=== PATIENT | male | born 1955 | race Caucasian/White ===

== ENCOUNTER 2017-10-31 04:31 | Observation (INO) | payer OTHER ==
[2017-10-31] MEDS ORDERED: MORPHINE SULFATE 4 MG/ML SYRINGE IV STA (04:57)
[2017-10-31 05:08] LABS: Basophils # (A) 0.1 k/uL (0-0.2); Basophils % (A) 1 %; Eosinophils # (A) 0.2 k/uL (0-0.7); Eosinophils % (A) 2 %; HCT 42.8 % (39.0-53.0); HGB 14.6 gm/dL (13.0-17.5); Lymphocytes # (A) 1.5 k/uL (1.0-4.8); Lymphocytes % (A) 16 %; MCH 34.8 pg (25.0-35.0); MCHC 34.1 g/dL (31.0-37.0); MCV 101.9 fL (80.0-100.0); Macrocytosis Slight; Mean Platelet Volume 6.7; Monocytes # (A) 0.6 k/uL (0-1.0); Monocytes % (A) 6 %; Neutrophils # (A) 6.8 k/uL (1.3-7.7); Neutrophils % (A) 73 %; Platelet Count 250 k/uL (150-450); RDW 12.8 % (11.5-15.5); WBC 9.2 k/uL (3.8-10.6)
[2017-10-31 05:17] LABS: ALT 26 U/L (21-72); AST 45 U/L (17-59); Albumin 4.4 g/dL (3.5-5.0); Alkaline Phosphatase 77 U/L (38-126); Amylase 71 U/L (30-110); Anion Gap 11 mmol/L; Blood Urea Nitrogen 4 mg/dL (9-20); Calcium 9.1 mg/dL (8.4-10.2); Carbon Dioxide 30 mmol/L (22-30); Chloride 89 mmol/L (98-107); Glucose 104 mg/dL (74-99); Lipase 179 U/L (23-300); Sodium 130 mmol/L (137-145); Total Bilirubin 1.3 mg/dL (0.2-1.3); Total Protein 7.4 g/dL (6.3-8.2)
[2017-10-31 05:21] LABS: Potassium 4.2 mmol/L (3.5-5.1)
--- NOTE | 2017-10-31 05:46 | CT ---
EXAM: CT Abdomen and Pelvis Without Intravenous Contrast CLINICAL HISTORY: abdominal pain TECHNIQUE: Axial computed tomography images of the abdomen and pelvis without intravenous contrast. CTDI is 10.60 mGy and DLP is 475.40 mGy-cm. This CT exam was performed using one or more of the following dose reduction techniques: automated exposure control, adjustment of the mA and/or kV according to patient size, and/or use of iterative reconstruction technique. COMPARISON: No relevant prior studies available. FINDINGS: Lung bases: Unremarkable. No mass. No consolidation. ABDOMEN: Liver: Unremarkable. Gallbladder and bile ducts: Unremarkable. No calcified stones. No ductal dilation. Pancreas: Unremarkable. No ductal dilation. Spleen: Unremarkable. No splenomegaly. Adrenals: Probable 1 cm right adrenal adenoma. Kidneys and ureters: Unremarkable. No obstructing stones. No hydronephrosis. Stomach and bowel: Limited evaluation of the bowel without the use of oral or IV contrast. Within this limitation, dilated air-fluid filled small bowel loops are seen, measuring up to 3.7 cm in diameter. Suspected wall thickening of proximal small bowel loops. A definitive transition point is not seen. Constellation of findings are suggestive of infectious versus inflammatory enteritis resulting in ileus and/or a partial small bowel obstruction. Underdistention versus mild wall thickening of the descending and sigmoid colon, which may represent mild infectious versus inflammatory colitis. Lipomatosis of the ascending colon, which is a nonspecific finding, although can be seen in chronic IBD. PELVIS: Appendix: No findings to suggest acute appendicitis. Bladder: Unremarkable. No stones. Reproductive: Prostatomegaly, measuring up to 4.8 cm in transverse dimension. ABDOMEN and PELVIS: Intraperitoneal space: Unremarkable. No free air. No significant fluid collection. Bones/joints: Mild bilateral sacroiliitis. No acute fracture. No dislocation. Soft tissues: Unremarkable. Vasculature: Mild/moderate vascular calcifications involving the intra- abdominal aorta and its branches. No abdominal aortic aneurysm. Lymph nodes: No significant lymphadenopathy, although evaluation is limited without the use of IV contrast material. IMPRESSION: 1. Limited evaluation of the bowel without the use of oral or IV contrast. Within this limitation, dilated air-fluid filled small bowel loops, measuring up to 3.7 cm in diameter. Suspected wall thickening of proximal small bowel loops. A definitive transition point is not seen. Constellation of findings are suggestive of infectious versus inflammatory enteritis resulting in ileus and/or a partial small bowel obstruction. Repeat CT of the abdomen/pelvis with oral and IV contrast is recommended for further evaluation. 2. Underdistention versus mild wall thickening of the descending and sigmoid colon, which may represent mild infectious versus inflammatory colitis. [employer] 10/31/17 05:32 Call Doctor Regarding Other, called Dr. Rick on 10/31 05: 32 (-04:00)
[2017-10-31 05:49] LABS: Appearance,Urine Clear (Clear); Bilirubin,Urine Negative (Negative); Blood,Urine Negative (Negative); Color,Urine Light Yellow; Glucose,Urine (UA) Negative (Negative); Ketones,Urine Negative (Negative); Leukocyte Esterase,Urine Negative (Negative); Nitrite,Urine Negative (Negative); PH, Urine 8.5 (5.0-8.0); Protein,Urine Negative (Negative); Specific Gravity,Urine 1.004 (1.001-1.035); Urobilinogen,Urine <2.0 mg/dL (<2.0)
[2017-10-31] MEDS ORDERED: ONDANSETRON 4 MG/2 ML VIAL IVP STA (06:45)
[2017-10-31] MEDS ORDERED: ONDANSETRON 4 MG/2 ML VIAL IVP PRN (06:50)
[2017-10-31] MEDS ORDERED: NALOXONE 0.4 MG/ML 1 ML VIAL IV PRN (06:50)
--- NOTE | 2017-10-31 06:50 | ED ---
Abdominal Pain HPI - General Chief Complaint: Abdominal Pain Stated Complaint: Abd pain Time Seen by Provider: 10/31/17 04:40 Source: EMS Mode of arrival: EMS Limitations: no limitations - History of Present Illness Initial Comments: This patient is 62-year-old man who noticed the onset of left-sided abdominal pain approximately 22 hours ago. He states that about 7 AM while he was having his morning coffee he started having pain that initially was mild and then became a little bit worse over the course the day. He states that it is not easy for him to characterize it as a cramping or bloating feeling. He has not noted relieving factors, and states that it is a bit worse if he presses on the abdomen. He also had nausea and vomited once. He denies any change in bowel movements or urination. No testicular symptoms. MD Complaint: abdominal pain Onset/Timin -: hour(s) Location: LUQ, LLQ Radiation: none Migration to: no migration Severity: moderate Quality: cramping, fullness Consistency: constant Improves With: nothing Worsens With: nothing Associated Symptoms: nausea, vomiting - Related Data Previous Rx's Medication Instructions Recorded Budesonide-Formot 160-4.5 Mcg 2 puff INHALATION RT-BID #1 puff 05/22/14 [Symbicort 160-4.5 Mcg Inhaler] Folic Acid 1 mg PO DAILY@1200 #30 tab 05/22/14 Ipratropium-Albuterol Nebulize 3 ml IH QID #120 ampul.neb 05/22/14 [Duoneb 0.5 mg-3 mg/3 ml Soln] Levofloxacin [Levaquin] 500 mg PO DAILY #7 tab 05/22/14 Thiamine [Vitamin B-1] 100 mg PO DAILY@1200 #30 tab 05/22/14 predniSONE 10 mg PO DIRECTED #40 tab 05/22/14 Allergies Allergy/AdvReac Type Severity Reaction Status Date / Time aspirin Allergy Rash/Hives Verified 10/31/17 04:36 Review of Systems ROS Statement: Those systems with pertinent positive or pertinent negative responses have been documented in the HPI. ROS Other: All systems not noted in ROS Statement are negative. Constitutional: Denies: fever, chills, weakness Respiratory: Denies: cough, dyspnea Cardiovascular: Denies: chest pain, palpitations, edema, syncope Gastrointestinal: Reports: abdominal pain, nausea, vomiting. Denies: diarrhea, constipation, melena, hematochezia Genitourinary: Denies: dysuria, hematuria, testicular pain, testicular mass Musculoskeletal: Denies: back pain Skin: Denies: rash Neurological: Denies: headache, weakness, numbness Past Medical History Past Medical History: No Reported History History of Any Multi-Drug Resistant Organisms: None Reported Past Surgical History: Joint Replacement Additional Past Surgical History / Comment(s): LT SHOULDER in 2009 Past Psychological History: No Psychological Hx Reported Smoking Status: Former smoker Past Alcohol Use History: Occasional Past Drug Use History: None Reported - Past Family History Daughter(s) Family Medical History: No Reported History General Exam Limitations: no limitations General appearance: alert, in no apparent distress Head exam: Present: atraumatic, normocephalic Eye exam: Present: normal appearance. Absent: scleral icterus, conjunctival injection ENT exam: Present: normal oropharynx Respiratory exam: Present: normal lung sounds bilaterally. Absent: respiratory distress, wheezes, rales, rhonchi, stridor Cardiovascular Exam: Present: regular rate, normal rhythm, normal heart sounds. Absent: systolic murmur, diastolic murmur, rubs, gallop GI/Abdominal exam: Present: soft, tenderness (Mild left-sided tenderness without rebound or guarding), normal bowel sounds. Absent: distended, guarding , rebound, rigid, mass, pulsatile mass, hernia Extremities exam: Present: normal inspection, normal capillary refill. Absent: pedal edema, calf tenderness Back exam: Present: normal inspection. Absent: CVA tenderness (R), CVA tenderness (L) Neurological exam: Present: alert Skin exam: Present: warm, dry, intact, normal color. Absent: rash Course Vital Signs 10/31/17 04:35 Temperature 98.3 F Pulse Rate 92 Respiratory 18 Rate Blood Pressure 156/109 O2 Sat by Pulse 97 Oximetry Medical Decision Making - Medical Decision Making Patient is a 62-year-old man with nearly 24 hours of left-sided abdominal pain. He was having some moderate tenderness and therefore computed tomography scan obtained which appears show an ileus. The patient not having any improvement with symptomatic treatment. - Lab Data Result diagrams: 10/31/17 04:45 10/31/17 04:45 Lab Results 10/31/17 10/31/17 10/31/17 Range/Units 04:45 04:45 05:39 WBC 9.2 (3.8-10.6) k/uL RBC 4.20 L (4.30-5.90) m/uL Hgb 14.6 (13.0-17.5) gm/dL Hct 42.8 (39.0-53.0) % MCV 101.9 H (80.0-100.0) fL MCH 34.8 (25.0-35.0) pg MCHC 34.1 (31.0-37.0) g/dL RDW 12.8 (11.5-15.5) % Plt Count 250 (150-450) k/uL Neutrophils % 73 % Lymphocytes % 16 % Monocytes % 6 % Eosinophils % 2 % Basophils % 1 % Neutrophils # 6.8 (1.3-7.7) k/uL Lymphocytes # 1.5 (1.0-4.8) k/uL Monocytes # 0.6 (0-1.0) k/uL Eosinophils # 0.2 (0-0.7) k/uL Basophils # 0.1 (0-0.2) k/uL Macrocytosis Slight Sodium 130 L (137-145) mmol/L Potassium 4.2 (3.5-5.1) mmol/L Chloride 89 L (98-107) mmol/L Carbon Dioxide 30 (22-30) mmol/L Anion Gap 11 mmol/L BUN 4 L (9-20) mg/dL Creatinine 0.40 L (0.66-1.25) mg/dL Est GFR (CKD-EPI)AfAm >90 (>60 ml/min/1.73 sqM) Est GFR (CKD-EPI)NonAf >90 (>60 ml/min/1.73 sqM) Glucose 104 H (74-99) mg/dL Calcium 9.1 (8.4-10.2) mg/dL Total Bilirubin 1.3 (0.2-1.3) mg/dL AST 45 (17-59) U/L ALT 26 (21-72) U/L Alkaline Phosphatase 77 (38-126) U/L Total Protein 7.4 (6.3-8.2) g/dL Albumin 4.4 (3.5-5.0) g/dL Amylase 71 (30-110) U/L Lipase 179 (23-300) U/L Urine Color Light Yellow Urine Appearance Clear (Clear) Urine pH 8.5 H (5.0-8.0) Ur Specific Clemons 1.004 (1.001-1.035) Urine Protein Negative (Negative) Urine Glucose (UA) Negative (Negative) Urine Ketones Negative (Negative) Urine Blood Negative (Negative) Urine Nitrite Negative (Negative) Urine Bilirubin Negative (Negative) Urine Urobilinogen <2.0 (<2.0) mg/dL Ur Leukocyte Esterase Negative (Negative) Disposition Clinical Impression: Abdominal pain, Ileus Disposition: ADMITTED IP TO THIS [facility] Condition: Fair Referrals: Bia Anderson MD [Primary Care Provider] - 1-2 days
[2017-10-31] MEDS: SODIUM CHLORIDE 0.9% 1,000 ML IV SCH ×2 (06:54→16:08)
[2017-10-31] MEDS ORDERED: FAMOTIDINE 20 MG TAB PO SCH (09:00)
--- NOTE | 2017-10-31 14:03 | P.DS ---
Providers Date of admission: 10/31/17 06:57 Attending physician: Kirill Cooley Primary care physician: Bia Anderson [facility] Course: As mentioned in HPI Patient Condition at Discharge: Fair Plan - Discharge Summary Discharge Rx Participant: Yes New Discharge Prescriptions: New Ranitidine HCl [Zantac] 150 mg PO BID #30 tab No Action Vit C/E/Zn/Coppr/Lutein/Zeaxan [Preservision Areds 2 Softgel] 1 cap PO BID Latanoprost [Xalatan 0.005%] 1 drop LEFT EYE HS Discharge Medication List Latanoprost [Xalatan 0.005%] 1 drop LEFT EYE HS 10/31/17 [History] Ranitidine HCl [Zantac] 150 mg PO BID #30 tab 10/31/17 [Rx] Vit C/E/Zn/Coppr/Lutein/Zeaxan [Preservision Areds 2 Softgel] 1 cap PO BID 10/31 [History] Follow up Appointment(s)/Referral(s): Radha Lau FNJc [REFERRING] - 11/07/17 3:15 pm Bia Anderson MD [Primary Care Provider] - 1 Week Patient Instructions/Handouts: Ileus (DC) Activity/Diet/Wound Care/Special Instructions: Regular diet Discharge Disposition: HOME SELF-CARE
--- NOTE | 2017-10-31 14:03 | P.HPIM ---
History of Present Illness 62-year-old gentleman came in with the complaints of abdominal pain mostly diffuse sharp in nature 7/10 in severity nonradiating CAT scan of the abdomen was done which showed a gastritis patient has multiple episodes of vomiting and nausea denied any bowel or bladder incontinence his pain is cramping as well. Patient's symptoms completely resolved at this point of time patient probably has viral gastroenteritis patient has improved symptoms patient is bit dehydrated from my gastroenteritis nausea vomiting. Patient received IV fluids clinically doing well and advance her diet to soft diet is clinically doing well will be discharged today. Patient did have a bowel movement today. Review of Systems REVIEW OF SYSTEMS: CONSTITUTIONAL: No fever, no malaise, no fatigue. HEENT: No recent visual problems or hearing problems. Denied any sore throat. CARDIOVASCULAR: No chest pain, orthopnea, PND, no palpitations, no syncope. PULMONARY: No shortness of breath, no cough, no hemoptysis. GASTROINTESTINAL: As mentioned in HPI NEUROLOGICAL: No headaches, no weakness, no numbness. HEMATOLOGICAL: Denies any bleeding or petechiae. GENITOURINARY: Denies any burning micturition, frequency, or urgency. MUSCULOSKELETAL/RHEUMATOLOGICAL: Denies any joint pain, swelling, or any muscle pain. ENDOCRINE: Denies any polyuria or polydipsia. The rest of the 14-point review of systems is negative. Past Medical History Past Medical History: No Reported History History of Any Multi-Drug Resistant Organisms: None Reported Past Surgical History: Joint Replacement Additional Past Surgical History / Comment(s): LT SHOULDER sx in 2009 Past Psychological History: No Psychological Hx Reported Smoking Status: Former smoker Past Alcohol Use History: Occasional Past Drug Use History: None Reported - Past Family History Daughter(s) Family Medical History: No Reported History Medications and Allergies Home Medications Medication Instructions Recorded Confirmed Type Latanoprost [Xalatan 0.005%] 1 drop LEFT EYE HS 10/31/17 10/31/17 History Ranitidine HCl [Zantac] 150 mg PO BID #30 tab 10/31/17 Rx Vit C/E/Zn/Coppr/Lutein/Zeaxan 1 cap PO BID 10/31/17 10/31/17 History [Preservision Areds 2 Softgel] Allergies Allergy/AdvReac Type Severity Reaction Status Date / Time aspirin Allergy Rash/Hives Verified 10/31/17 07:32 Physical Exam Vitals: Vital Signs Temp Pulse Pulse Resp BP BP Pulse Ox 10/31/17 09:51 98.2 F 73 18 118/72 98 10/31/17 08:10 98.0 F 68 18 143/70 98 10/31/17 06:55 67 16 126/66 97 10/31/17 04:35 98.3 F 92 18 156/109 97 Intake and Output 10/30/17 10/31/17 10/31/17 22:59 06:59 14:59 Other: Weight 83.915 kg PHYSICAL EXAMINATION: GENERAL: The patient is alert and oriented x3, not in any acute distress. Well developed, well nourished. HEENT: Pupils are round and equally reacting to light. EOMI. No scleral icterus. No conjunctival pallor. Normocephalic, atraumatic. No pharyngeal erythema. No thyromegaly. CARDIOVASCULAR: S1 and S2 present. No murmurs, rubs, or gallops. PULMONARY: Chest is clear to auscultation, no wheezing or crackles. ABDOMEN: Soft, nontender, nondistended, normoactive bowel sounds. No palpable organomegaly. MUSCULOSKELETAL: No joint swelling or deformity. EXTREMITIES: No cyanosis, clubbing, or pedal edema. NEUROLOGICAL: Gross neurological examination did not reveal any focal deficits. SKIN: No rashes. Results CBC & Chem 7: 10/31/17 04:45 10/31/17 04:45 Labs: Abnormal Lab Results - Last 24 Hours (Table) 10/31/17 10/31/17 10/31/17 Range/Units 04:45 04:45 05:39 RBC 4.20 L (4.30-5.90) m/uL MCV 101.9 H (80.0-100.0) fL Sodium 130 L (137-145) mmol/L Chloride 89 L (98-107) mmol/L BUN 4 L (9-20) mg/dL Creatinine 0.40 L (0.66-1.25) mg/dL Glucose 104 H (74-99) mg/dL Urine pH 8.5 H (5.0-8.0) Thrombosis Risk Factor Assmnt - Choose All That Apply Any of the Below Risk Factors Present?: No Assessment and Plan Plan: -Vital gastroenteritis: Symptoms resolved we'll obtain repeat chest x-ray before discharge, patient will be started on soft diet if he is able to tolerated patient will be discharged. -Former smoker -Hyponatremia hyperemic hyponatremia probably improved now with IV fluids.
--- NOTE | 2017-10-31 14:36 | XR ---
EXAMINATION TYPE: XR abdomen 2V DATE OF EXAM: 10/31/2017 COMPARISON: None HISTORY: Pain TECHNIQUE: One view abdominal series FINDINGS: The osseous structures are intact. The bowel gas pattern is nonspecific. Hypertrophic and degenerati ve change of the spine. Arthropathy of the hips. Vascular calcifications noted. IMPRESSION: 1. Nonspecific bowel gas pattern. There are dilated small bowel loops. Correlate for ileus, enteritis or partial obstruction.
[2017-10-31 16:14] VITALS: BP 104/72; PULSE 75; RESP 17; TEMP 99.8
== END 2017-10-31 16:21 | disposition home or self-care (01) ==
LOC: EC 04:31 → INTOOBSV 06:57 → 4MS4W 06:57 → UNDODISIN 16:21
PROVIDERS: ADMIT Hospitalist; ATTEND Hospitalist
DX: K52.9 Noninfective gastroenteritis and colitis, unspecified (principal); K29.70 Gastritis, unspecified, without bleeding; E87.1 Hypo-osmolality and hyponatremia; E86.0 Dehydration; K56.7 Ileus, unspecified; Z79.51 Long term (current) use of inhaled steroids; Z79.52 Long term (current) use of systemic steroids; Z79.899 Other long term (current) drug therapy; Z88.6 Allergy status to analgesic agent; Z87.891 Personal history of nicotine dependence; Z96.612 Presence of left artificial shoulder joint
CPT/HCPCS: 96361; 96374; 96375; 99285; 36415; 80053; 82150; 83690; 85025; 81003; 74019; 74176; G0378; J2270; J2405

== ENCOUNTER → 2017-11-29 | Outpatient (CLI) | payer OTHER ==
[2017-11-29 13:05] LABS: Anion Gap 8 mmol/L; Blood Urea Nitrogen 7 mg/dL (9-20); Calcium 8.9 mg/dL (8.4-10.2); Carbon Dioxide 29 mmol/L (22-30); Chloride 95 mmol/L (98-107); Glucose 105 mg/dL (74-99); Potassium 4.4 mmol/L (3.5-5.1); Sodium 132 mmol/L (137-145)
== END | disposition home or self-care (01) ==
LOC: LABWHC1 11:40
PROVIDERS: ATTEND Internal Medicine
DX: D64.9 Anemia, unspecified (principal)
CPT/HCPCS: 36415; 80048

== ENCOUNTER 2019-04-18 18:26 | Inpatient (IN) | payer MEDICARE, OTHER ==
[2019-04-18] MEDS ORDERED: IPRATROPIUM-ALBUTEROL 3 ML NEB INHALATION STA (18:46)
[2019-04-18] MEDS ORDERED: ALBUTEROL NEBULIZED 2.5 MG/3 ML INHALATION STA (18:46)
[2019-04-18] MEDS ORDERED: methylPREDNISolone SOD SUCCI 125 MG/2 ML VIAL IV STA (18:57)
[2019-04-18 19:09] LABS: Basophils % (A) 0 %; Eosinophils # (A) 0.1 k/uL (0-0.7); Eosinophils % (A) 1 %; HCT 32.6 % (39.0-53.0); HGB 11.5 gm/dL (13.0-17.5); Lymphocytes # (A) 0.7 k/uL (1.0-4.8); Lymphocytes % (A) 6 %; MCH 34.1 pg (25.0-35.0); MCHC 35.4 g/dL (31.0-37.0); MCV 96.3 fL (80.0-100.0); Mean Platelet Volume 8.1; Monocytes # (A) 0.5 k/uL (0-1.0); Monocytes % (A) 4 %; Neutrophils # (A) 10.4 k/uL (1.3-7.7); Neutrophils % (A) 87 %; Platelet Count 168 k/uL (150-450); RBC 3.39 m/uL (4.30-5.90); RDW 12.4 % (11.5-15.5)
--- NOTE | 2019-04-18 19:17 | ED ---
General Adult HPI - General Chief complaint: Shortness of Breath Stated complaint: breathing issues/wheezing/vomiting Time Seen by Provider: 04/18/19 18:35 Source: patient, RN notes reviewed, old records reviewed Mode of arrival: ambulatory Limitations: no limitations - History of Present Illness Initial comments: 64-year-old male presents for 3 days of cough, mild dyspnea, URI symptoms. He's had subjective fever and chills. He's been sick for 3 days. He has significant tobacco use however he did quit about 6 months ago. No diagnosis of COPD or asthma. No history of heart disease or heart failure. Denies lower extremity pain or swelling. Denies nausea vomiting or diarrhea. He does complain of nasal congestion and productive cough. No central chest pain. - Related Data Home Medications Medication Instructions Recorded Confirmed Latanoprost [Xalatan 0.005%] 1 drop LEFT EYE HS 10/31/17 11/01/17 Vit C/E/Zn/Coppr/Lutein/Zeaxan 1 cap PO BID 10/31/17 11/01/17 [Preservision Areds 2 Softgel] Previous Rx's Medication Instructions Recorded Multivitamin [Men's Multi-Vitamin] 1 each PO DAILY #30 tablet 11/01/17 Thiamine [Vitamin B-1] 100 mg PO DAILY #14 tablet 11/01/17 Allergies Allergy/AdvReac Type Severity Reaction Status Date / Time aspirin Allergy Rash/Hives Verified 04/18/19 18:29 Review of Systems ROS Statement: Those systems with pertinent positive or pertinent negative responses have been documented in the HPI. ROS Other: All systems not noted in ROS Statement are negative. Past Medical History Past Medical History: No Reported History Additional Past Medical History / Comment(s): glaucoma History of Any Multi-Drug Resistant Organisms: None Reported Past Surgical History: Joint Replacement Additional Past Surgical History / Comment(s): LT SHOULDER sx in 2009 Past Psychological History: No Psychological Hx Reported Smoking Status: Former smoker Past Alcohol Use History: Occasional Past Drug Use History: None Reported - Past Family History Daughter(s) Family Medical History: No Reported History General Exam Limitations: no limitations General appearance: alert, in no apparent distress Head exam: Present: atraumatic, normocephalic Eye exam: Present: normal appearance, PERRL ENT exam: Absent: normal oropharynx (Mild pharyngeal erythema, nasal congestion) Neck exam: Present: normal inspection. Absent: tenderness, meningismus Respiratory exam: Present: wheezes, decreased breath sounds. Absent: respiratory distress Cardiovascular Exam: Present: tachycardia, irregular rhythm GI/Abdominal exam: Present: soft. Absent: distended, tenderness, guarding Extremities exam: Present: normal inspection, normal capillary refill. Absent: pedal edema Neurological exam: Present: alert, oriented X3, CN II-XII intact. Absent: motor sensory deficit Psychiatric exam: Present: normal affect, normal mood Skin exam: Present: warm, dry, intact. Absent: cyanosis, diaphoretic Course Vital Signs 04/18/19 04/18/19 04/18/19 18:29 18:52 19:04 Temperature 100.7 F H Pulse Rate 73 72 81 Respiratory 18 18 18 Rate Blood Pressure 157/69 O2 Sat by Pulse 96 Oximetry 04/18/19 19:35 Temperature 101.2 F H Pulse Rate 146 H Respiratory 18 Rate Blood Pressure 111/67 O2 Sat by Pulse 98 Oximetry EKG Findings - EKG Comments: EKG Findings:: EKG: Atrial fibrillation with RVR, rate of 137, QRS duration 84, QTC 422, no ST segment elevation Medical Decision Making - Medical Decision Making 64-year-old male with 3 days of cough and dyspnea, former smoker. Has wheezing bilaterally. He appears ill, cachectic. He is in A. fib with rapid ventricular response, rate around 150. He has mild leukocytosis, down trending hemoglobin 11. He has significant lab abnormalities, hyponatremia, hypokalemia. Chest x- ray showing focal pneumonia on the left lung base. He is initiated on antibiotics covering community-acquired pneumonia, he started on Cardizem for his new-onset A. fib. He is given a left lateral placement for hyponatremia, hypokalemia. Case is discussed with Poonam busch for yeast or [place] hospitalist. He will be admitted with both cardiology and pulmonology on consult. - Lab Data Result diagrams: 04/18/19 18:55 04/18/19 18:55 Lab Results 04/18/19 04/18/19 04/18/19 Range/Units 18:55 18:55 18:55 WBC 12.0 H (3.8-10.6) k/uL RBC 3.39 L (4.30-5.90) m/uL Hgb 11.5 L (13.0-17.5) gm/dL Hct 32.6 L (39.0-53.0) % MCV 96.3 (80.0-100.0) fL MCH 34.1 (25.0-35.0) pg MCHC 35.4 (31.0-37.0) g/dL RDW 12.4 (11.5-15.5) % Plt Count 168 (150-450) k/uL Neutrophils % 87 % Lymphocytes % 6 % Monocytes % 4 % Eosinophils % 1 % Basophils % 0 % Neutrophils # 10.4 H (1.3-7.7) k/uL Lymphocytes # 0.7 L (1.0-4.8) k/uL Monocytes # 0.5 (0-1.0) k/uL Eosinophils # 0.1 (0-0.7) k/uL Basophils # 0.0 (0-0.2) k/uL PT (9.0-12.0) sec INR (<1.2) APTT (22.0-30.0) sec Sodium 120 L (137-145) mmol/L Potassium 3.1 L (3.5-5.1) mmol/L Chloride 85 L (98-107) mmol/L Carbon Dioxide 24 (22-30) mmol/L Anion Gap 11 mmol/L BUN 28 H (9-20) mg/dL Creatinine 0.49 L (0.66-1.25) mg/dL Est GFR (CKD-EPI)AfAm >90 (>60 ml/min/1.73 sqM) Est GFR (CKD-EPI)NonAf >90 (>60 ml/min/1.73 sqM) Glucose 136 H (74-99) mg/dL Plasma Lactic Acid Hugo 2.2 H* (0.7-2.0) mmol/L Calcium 7.6 L (8.4-10.2) mg/dL Magnesium 1.8 (1.6-2.3) mg/dL Total Bilirubin 0.4 (0.2-1.3) mg/dL AST 38 (17-59) U/L ALT 15 (4-49) U/L Alkaline Phosphatase 65 (38-126) U/L Troponin I (0.000-0.034) ng/mL NT-Pro-B Natriuret Pep pg/mL Total Protein 5.3 L (6.3-8.2) g/dL Albumin 2.9 L (3.5-5.0) g/dL 04/18/19 04/18/19 04/18/19 Range/Units 18:55 18:55 18:55 WBC (3.8-10.6) k/uL RBC (4.30-5.90) m/uL Hgb (13.0-17.5) gm/dL Hct (39.0-53.0) % MCV (80.0-100.0) fL MCH (25.0-35.0) pg MCHC (31.0-37.0) g/dL RDW (11.5-15.5) % Plt Count (150-450) k/uL Neutrophils % % Lymphocytes % % Monocytes % % Eosinophils % % Basophils % % Neutrophils # (1.3-7.7) k/uL Lymphocytes # (1.0-4.8) k/uL Monocytes # (0-1.0) k/uL Eosinophils # (0-0.7) k/uL Basophils # (0-0.2) k/uL PT 10.6 (9.0-12.0) sec INR 1.0 (<1.2) APTT 31.7 H (22.0-30.0) sec Sodium (137-145) mmol/L Potassium (3.5-5.1) mmol/L Chloride (98-107) mmol/L Carbon Dioxide (22-30) mmol/L Anion Gap mmol/L BUN (9-20) mg/dL Creatinine (0.66-1.25) mg/dL Est GFR (CKD-EPI)AfAm (>60 ml/min/1.73 sqM) Est GFR (CKD-EPI)NonAf (>60 ml/min/1.73 sqM) Glucose (74-99) mg/dL Plasma Lactic Acid Hugo (0.7-2.0) mmol/L Calcium (8.4-10.2) mg/dL Magnesium (1.6-2.3) mg/dL Total Bilirubin (0.2-1.3) mg/dL AST (17-59) U/L ALT (4-49) U/L Alkaline Phosphatase (38-126) U/L Troponin I 0.026 (0.000-0.034) ng/mL NT-Pro-B Natriuret Pep 1660 pg/mL Total Protein (6.3-8.2) g/dL Albumin (3.5-5.0) g/dL Critical Care Time Critical Care Time: Yes Total Critical Care Time: 35 Disposition Clinical Impression: Acute exacerbation of chronic obstructive pulmonary disease, Community acquired pneumonia, Atrial fibrillation with RVR, Hyponatremia Disposition: ADMITTED IP TO THIS [facility] Condition: Stable Is patient prescribed a controlled substance at d/c from ED?: No Referrals: Radha Lau FNJc [REFERRING] - 1-2 days Decision to Admit Reason: Admit from EC Decision Date: 04/18/19 Decision Time: 20:19
[2019-04-18 19:18] LABS: ALT 15 U/L (4-49); AST 38 U/L (17-59); African American GFR (CKD) >90 (>60 ml/min/1.73 sqM); Albumin 2.9 g/dL (3.5-5.0); Alkaline Phosphatase 65 U/L (38-126); Anion Gap 11 mmol/L; Blood Urea Nitrogen 28 mg/dL (9-20); Calcium 7.6 mg/dL (8.4-10.2); Carbon Dioxide 24 mmol/L (22-30); Chloride 85 mmol/L (98-107); Glucose 136 mg/dL (74-99); Magnesium 1.8 mg/dL (1.6-2.3); Non-African American GFR(CKD) >90 (>60 ml/min/1.73 sqM); Potassium 3.1 mmol/L (3.5-5.1); Sodium 120 mmol/L (137-145); Total Bilirubin 0.4 mg/dL (0.2-1.3); Total Protein 5.3 g/dL (6.3-8.2)
[2019-04-18] MEDS ORDERED: DILTIAZEM DRIP BOLUS FROM BAG 1 MG SOLN IV ONE (19:18)
[2019-04-18 19:22] LABS: Partial Thromboplastin Time 31.7 sec (22.0-30.0); Prothrombin Time 10.6 sec (9.0-12.0)
[2019-04-18] MEDS ORDERED: DILTIAZEM 125 MG in SODIUM CHLORIDE 0.9% 100 ML IV SCH (19:30)
[2019-04-18] MEDS ORDERED: SODIUM CHLORIDE 0.9% 500 ML 500 ML IV STA (19:38)
[2019-04-18] MEDS ORDERED: POTASSIUM CHLORIDE ER 20 MEQ TAB.ER PO STA (19:41)
[2019-04-18] MEDS ORDERED: AZITHROMYCIN 500 MG in SODIUM CHLORIDE 0.9% 250 ML IVPB STA (19:43)
[2019-04-18] MEDS ORDERED: cefTRIAXone IN SWFI 1,000 MG/10 ML SYRINGE IVP STA (19:43)
[2019-04-18] MEDS ORDERED: ACETAMINOPHEN TAB 500 MG TAB PO STA (19:43)
--- NOTE | 2019-04-18 19:57 | XR ---
EXAMINATION TYPE: XR chest 2V DATE OF EXAM: 04/18/2019 COMPARISON: NONE HISTORY: Short of breath TECHNIQUE: 2 views FINDINGS: Heart is normal. There is coarse infiltrates in both lungs with some coalescence left lower lobe. There are no hilar masses. There is no heart failure. There are chest leads. There is no pleur al effusion. There is poorly marginated 3.5 cm density in the anterior segment left lower lobe. IMPRESSION: Normal heart. Pulmonary and pleural scarring at the lung apices. Infiltrate anterior segment left lower lobe is new compared to old exam. Follow-up recommended show adria lopez.
[2019-04-18] MEDS ORDERED: IPRATROPIUM-ALBUTEROL 3 ML NEB INHALATION PRN (20:19)
[2019-04-18] MEDS: SODIUM CHLORIDE 0.9% 1,000 ML IV SCH (20:38)
[2019-04-18] MEDS: POTASSIUM CHLORIDE 10 MEQ in WATER FOR INJECTION 1 100ML.BAG IVPB SCH ×3 (20:38→21:58)
[2019-04-18] MEDS ORDERED: OSELTAMIVIR 75 MG CAP PO STA (20:58)
[2019-04-19] MEDS: methylPREDNISolone SOD SUCCI 125 MG/2 ML VIAL IV SCH ×2 (00:33→09:08)
[2019-04-19] MEDS: POTASSIUM CHLORIDE 10 MEQ in WATER FOR INJECTION 1 100ML.BAG IVPB SCH (00:33)
[2019-04-19 04:01] LABS: African American GFR (CKD) >90 (>60 ml/min/1.73 sqM); Anion Gap 10 mmol/L; Blood Urea Nitrogen 20 mg/dL (9-20); Calcium 7.6 mg/dL (8.4-10.2); Carbon Dioxide 25 mmol/L (22-30); Chloride 92 mmol/L (98-107); Glucose 145 mg/dL (74-99); Non-African American GFR(CKD) >90 (>60 ml/min/1.73 sqM); Potassium 3.7 mmol/L (3.5-5.1); Sodium 127 mmol/L (137-145)
[2019-04-19] MEDS: IPRATROPIUM-ALBUTEROL 3 ML NEB INHALATION SCH ×4 (08:06→19:01)
[2019-04-19 08:41] LABS: Basophils % (A) 0 %; Eosinophils % (A) 0 %; HCT 33.4 % (39.0-53.0); HGB 11.3 gm/dL (13.0-17.5); Lymphocytes # (A) 0.8 k/uL (1.0-4.8); Lymphocytes % (A) 8 %; MCH 33.7 pg (25.0-35.0); MCHC 33.9 g/dL (31.0-37.0); MCV 99.2 fL (80.0-100.0); Mean Platelet Volume 8.5; Monocytes # (A) 0.2 k/uL (0-1.0); Monocytes % (A) 2 %; Neutrophils # (A) 9.8 k/uL (1.3-7.7); Neutrophils % (A) 90 %; Platelet Count 178 k/uL (150-450); RBC 3.37 m/uL (4.30-5.90); RDW 12.6 % (11.5-15.5)
[2019-04-19 08:50] LABS: African American GFR (CKD) >90 (>60 ml/min/1.73 sqM); Anion Gap 10 mmol/L; Blood Urea Nitrogen 17 mg/dL (9-20); Calcium 8.1 mg/dL (8.4-10.2); Carbon Dioxide 25 mmol/L (22-30); Chloride 94 mmol/L (98-107); Glucose 152 mg/dL (74-99); Non-African American GFR(CKD) >90 (>60 ml/min/1.73 sqM); Potassium 4.1 mmol/L (3.5-5.1); Sodium 129 mmol/L (137-145)
[2019-04-19] MEDS: OSELTAMIVIR 75 MG CAP PO SCH ×2 (09:04→20:48)
--- NOTE | 2019-04-19 11:06 | P.HPIM ---
History of Present Illness 64-year-old male came in with comments of upper respiratory tract symptoms which is cough fever chills body aches. And mild dyspnea. Patient used to be a smoker in the pastquit about 6 was ago. never diagnosed with COPD. has a suspicious infiltrate in the right the middle lobe because of which patient was given antibiotics in ER. Although. My suspicion of bacterial pneumonia is low but will still continue with Rocephin and doxycycline. Patient came in with atrial fibrillation with rapid ventricular rate present, to sinus rhythm patient had dark stools because of which patient's antibiotic correlation was discontinued patient has about 3 dark stools patient will be monitored for GI bleed. Patient was started on metoprolol. Patient was on Cardizem which will risk and U. Patient denied any nausea vomiting diarrhea. Patient shortness of breath improved at this time.patient the influenza test was positive patient is on IV fluids patient is hyponatremic patient was started on Tamiflu. Echocardiogram was ordered. Review of Systems REVIEW OF SYSTEMS: CONSTITUTIONAL: No fever, no malaise, no fatigue. HEENT: No recent visual problems or hearing problems. Denied any sore throat. CARDIOVASCULAR: No chest pain, orthopnea, PND, no palpitations, no syncope. PULMONARY: as mentioned in HPI GASTROINTESTINAL: No diarrhea, no nausea, no vomiting, no abdominal pain. NEUROLOGICAL: No headaches, no weakness, no numbness. HEMATOLOGICAL: Denies any bleeding or petechiae. GENITOURINARY: Denies any burning micturition, frequency, or urgency. MUSCULOSKELETAL/RHEUMATOLOGICAL: Denies any joint pain, swelling, or any muscle pain. ENDOCRINE: Denies any polyuria or polydipsia. The rest of the 14-point review of systems is negative. Past Medical History Past Medical History: No Reported History Additional Past Medical History / Comment(s): glaucoma History of Any Multi-Drug Resistant Organisms: None Reported Past Surgical History: Joint Replacement Additional Past Surgical History / Comment(s): LT SHOULDER sx in 2010 Past Psychological History: No Psychological Hx Reported Smoking Status: Former smoker Past Alcohol Use History: Occasional Additional Past Alcohol Use History / Comment(s): patient says he smoked for 45 years but quit 3 months ago. Drinks alcohol occasionally. Says a six pack lasts him about a month. Lives with daughter and her significant other. Past Drug Use History: None Reported - Past Family History Daughter(s) Family Medical History: No Reported History Medications and Allergies Home Medications Medication Instructions Recorded Confirmed Type Latanoprost [Xalatan 0.005%] 1 drop LEFT EYE DAILY 10/31/17 04/18/19 History Allergies Allergy/AdvReac Type Severity Reaction Status Date / Time aspirin Allergy Rash/Hives Verified 04/18/19 21:58 Physical Exam Vitals: Vital Signs Temp Pulse Pulse Resp BP BP Pulse Ox 04/19/19 08:18 74 04/19/19 08:09 76 04/19/19 08:00 109 H 18 112/86 98 04/19/19 04:00 97.5 F L 70 18 97/54 98 04/18/19 23:05 98.1 F 91 18 129/63 100 04/18/19 21:00 100 18 103/62 97 04/18/19 19:35 101.2 F H 146 H 18 111/67 98 04/18/19 19:04 81 18 04/18/19 18:52 72 18 04/18/19 18:29 100.7 F H 73 18 157/69 96 Intake and Output 04/18/19 04/19/19 04/19/19 22:59 06:59 14:59 Intake Total 360 Output Total 900 700 Balance -900 -340 Intake: Oral 360 Output: Urine 900 700 Other: Voiding Method Urinal # Bowel Movements 3 Weight 84.368 kg 82.1 kg PHYSICAL EXAMINATION: GENERAL: The patient is alert and oriented x3, not in any acute distress. Well developed, well nourished. HEENT: Pupils are round and equally reacting to light. EOMI. No scleral icterus. No conjunctival pallor. Normocephalic, atraumatic. No pharyngeal erythema. No thyromegaly. CARDIOVASCULAR: S1 and S2 present. No murmurs, rubs, or gallops. PULMONARY: Chest is clear to auscultation, no wheezing or crackles. ABDOMEN: Soft, nontender, nondistended, normoactive bowel sounds. No palpable organomegaly. MUSCULOSKELETAL: No joint swelling or deformity. EXTREMITIES: No cyanosis, clubbing, or pedal edema. NEUROLOGICAL: Gross neurological examination did not reveal any focal deficits. SKIN: No rashes. Results CBC & Chem 7: 04/19/19 07:44 04/19/19 07:44 Labs: Abnormal Lab Results - Last 24 Hours (Table) 04/18/19 04/18/19 04/18/19 Range/Units 18:55 18:55 18:55 WBC 12.0 H (3.8-10.6) k/uL RBC 3.39 L (4.30-5.90) m/uL Hgb 11.5 L (13.0-17.5) gm/dL Hct 32.6 L (39.0-53.0) % Neutrophils # 10.4 H (1.3-7.7) k/uL Lymphocytes # 0.7 L (1.0-4.8) k/uL APTT (22.0-30.0) sec Sodium 120 L (137-145) mmol/L Potassium 3.1 L (3.5-5.1) mmol/L Chloride 85 L (98-107) mmol/L BUN 28 H (9-20) mg/dL Creatinine 0.49 L (0.66-1.25) mg/dL Glucose 136 H (74-99) mg/dL Plasma Lactic Acid Hugo (0.7-2.0) mmol/L Calcium 7.6 L (8.4-10.2) mg/dL Total Protein 5.3 L (6.3-8.2) g/dL Albumin 2.9 L (3.5-5.0) g/dL Influenza Type B (PCR) Detected H (Not Detectd) 04/18/19 04/18/19 04/18/19 Range/Units 18:55 18:55 23:20 WBC (3.8-10.6) k/uL RBC (4.30-5.90) m/uL Hgb (13.0-17.5) gm/dL Hct (39.0-53.0) % Neutrophils # (1.3-7.7) k/uL Lymphocytes # (1.0-4.8) k/uL APTT 31.7 H (22.0-30.0) sec Sodium (137-145) mmol/L Potassium (3.5-5.1) mmol/L Chloride (98-107) mmol/L BUN (9-20) mg/dL Creatinine (0.66-1.25) mg/dL Glucose (74-99) mg/dL Plasma Lactic Acid Hugo 2.2 H* 2.5 H* (0.7-2.0) mmol/L Calcium (8.4-10.2) mg/dL Total Protein (6.3-8.2) g/dL Albumin (3.5-5.0) g/dL Influenza Type B (PCR) (Not Detectd) 04/19/19 04/19/19 04/19/19 Range/Units 03:24 03:24 07:44 WBC 11.0 H (3.8-10.6) k/uL RBC 3.37 L (4.30-5.90) m/uL Hgb 11.3 L (13.0-17.5) gm/dL Hct 33.4 L (39.0-53.0) % Neutrophils # 9.8 H (1.3-7.7) k/uL Lymphocytes # 0.8 L (1.0-4.8) k/uL APTT (22.0-30.0) sec Sodium 127 L (137-145) mmol/L Potassium (3.5-5.1) mmol/L Chloride 92 L (98-107) mmol/L BUN (9-20) mg/dL Creatinine 0.53 L (0.66-1.25) mg/dL Glucose 145 H (74-99) mg/dL Plasma Lactic Acid Hugo 3.7 H* (0.7-2.0) mmol/L Calcium 7.6 L (8.4-10.2) mg/dL Total Protein (6.3-8.2) g/dL Albumin (3.5-5.0) g/dL Influenza Type B (PCR) (Not Detectd) 04/19/19 04/19/19 Range/Units 07:44 07:44 WBC (3.8-10.6) k/uL RBC (4.30-5.90) m/uL Hgb (13.0-17.5) gm/dL Hct (39.0-53.0) % Neutrophils # (1.3-7.7) k/uL Lymphocytes # (1.0-4.8) k/uL APTT (22.0-30.0) sec Sodium 129 L (137-145) mmol/L Potassium (3.5-5.1) mmol/L Chloride 94 L (98-107) mmol/L BUN (9-20) mg/dL Creatinine 0.50 L (0.66-1.25) mg/dL Glucose 152 H (74-99) mg/dL Plasma Lactic Acid Hugo 4.2 H* (0.7-2.0) mmol/L Calcium 8.1 L (8.4-10.2) mg/dL Total Protein (6.3-8.2) g/dL Albumin (3.5-5.0) g/dL Influenza Type B (PCR) (Not Detectd) Thrombosis Risk Factor Assmnt - Choose All That Apply Any of the Below Risk Factors Present?: Yes Each Factor Represents 1 point: Sepsis (< 1month) Other Risk Factors: Yes Each Risk Factor Represents 2 Points: Age 61-74 years Thrombosis Risk Factor Assessment Total Risk Factor Score: 3 Thrombosis Risk Factor Assessment Level: Moderate Risk Assessment and Plan Plan: -sepsis secondary to influenza probably the infiltrate in the lung that is because of influenza as well although I cannot completely rule out back pneumonia because of which I'll continue with ceftriaxone and doxycycline. Cystic steroids will be discontinued if tall we can give a inhaled steroids. -Atrial fibrillation proximal A. fib new onset rapid ventricular rate on admission presently resolved patient is sinus rhythm not on anti-coagulation because of the possibly of GI bleed and.stools. Patient will be started on beta génesis and will be discontinued atrial fibrillation is probably very Restricted because of sepsis may not even require beta génesis.echocardiogram was ordered cardiology will evaluate the patient. -Nicotine abuse not in acute exacerbation will not require any systemic steroids. -low possibility ofPossibly of postinfluenzal bacterial pneumonia which cannot be ruled out -possibly of upper GI bleed patient will be started on Protonixand will be monitored closely. For any evidence of GI bleed clinically.his hemoglobin is 11.3 -Hyponatremia hypotonic hyponatremia secondary to sepsis and patient will be started on IV fluids. -DVT prophylaxis early ambulation
[2019-04-19] MEDS: DOXYCYCLINE 100 MG CAP PO SCH ×2 (11:31→20:48)
[2019-04-19] MEDS ORDERED: SODIUM CHLORIDE 0.9% 1,000 ML IV ONE (12:24)
--- NOTE | 2019-04-19 12:46 | P.CNPUL ---
History of Present Illness Consult date: 04/19/19 Reason for consult: dyspnea, COPD History of present illness: 64-year-old male patient with known history of COPD, and subsequently developed cough congestion and fever and body aches and he was diagnosed having acute influenza B infection. He was also mild COPD exacerbation. In the emergency was in A. fib RVR. He converted subsequent into normal sinus rhythm and the rhythm has remained sinus. No chest pain. No angina. No neurological deficits. He was started on Tamiflu and he was admitted to the floor. Chest x- ray showed biapical guarding along with COPD without any clear airspace disease. The patient has no other new complaints. He feels rotten and a weak and tired and fatigued. Review of Systems Constitutional: Reports fatigue, Reports fever, Reports weakness Eyes: denies as per HPI, denies blurred vision, denies bulging eye, denies decreased vision, denies diplopia, denies discharge, denies dry eye, denies irritation, denies itching, denies pain, denies photophobia, denies loss of peripheral vision, denies loss of vision, denies tunnel vision/blind spots Ears: deny: decreased hearing, ear discharge, earache, tinnitus Ears, nose, mouth and throat: Denies headache, Denies sore throat Cardiovascular: Reports decreased exercise tolerance, Reports dyspnea on exertion Respiratory: Reports cough, Reports dyspnea, Reports wheezing Gastrointestinal: Reports as per HPI Genitourinary: Reports as per HPI Musculoskeletal: Reports as per HPI (Diffuse body aches), Reports muscle we akness Musculoskeletal: absent: ankle pain, ankle stiffness, ankle swelling Integumentary: Reports as per HPI Neurological: Reports as per HPI, Reports weakness Psychiatric: Reports as per HPI Endocrine: Reports as per HPI, Reports fatigue Hematologic/Lymphatic: Reports as per HPI Allergic/Immunologic: Reports as per HPI Past Medical History Past Medical History: No Reported History, COPD Additional Past Medical History / Comment(s): glaucoma History of Any Multi-Drug Resistant Organisms: None Reported Past Surgical History: Joint Replacement Additional Past Surgical History / Comment(s): LT SHOULDER sx in 2009 Past Psychological History: No Psychological Hx Reported Smoking Status: Former smoker Past Alcohol Use History: Occasional Additional Past Alcohol Use History / Comment(s): patient says he smoked for 45 years but quit 3 months ago. Drinks alcohol occasionally. Says a six pack lasts him about a month. Lives with daughter and her significant other. Past Drug Use History: None Reported - Past Family History Daughter(s) Family Medical History: No Reported History Medications and Allergies Home Medications Medication Instructions Recorded Confirmed Type Latanoprost [Xalatan 0.005%] 1 drop LEFT EYE DAILY 10/31/17 04/18/19 History Allergies Allergy/AdvReac Type Severity Reaction Status Date / Time aspirin Allergy Rash/Hives Verified 04/18/19 21:58 Physical Exam Vitals: Vital Signs Temp Pulse Pulse Resp BP BP Pulse Ox 04/19/19 12:00 109 H 18 04/19/19 11:45 72 04/19/19 11:36 76 04/19/19 08:18 74 04/19/19 08:09 76 04/19/19 08:00 109 H 18 112/86 98 04/19/19 04:00 97.5 F L 70 18 97/54 98 04/18/19 23:05 98.1 F 91 18 129/63 100 04/18/19 21:00 100 18 103/62 97 04/18/19 19:35 101.2 F H 146 H 18 111/67 98 04/18/19 19:04 81 18 04/18/19 18:52 72 18 04/18/19 18:29 100.7 F H 73 18 157/69 96 Intake and Output 04/18/19 04/19/19 04/19/19 22:59 06:59 14:59 Intake Total 360 Output Total 900 700 Balance -900 -340 Intake: Oral 360 Output: Urine 900 700 Other: Voiding Method Urinal # Bowel Movements 3 Weight 84.368 kg 82.1 kg The patient appeared well nourished and normally developed. Vital signs as documented. Head exam is unremarkable. No scleral icterus or corneal arcus noted. Neck is without jugular venous distension, thyromegaly, or carotid bruits. Carotid upstrokes are brisk bilaterally. Lungs are diminished breath so und along with scattered rhonchi and scattered external wheeze. Cardiac exam reveals the PMI to be normally sized and situated. Rhythm is regular. First and second heart sounds normal. No murmurs, rubs or gallops. Abdominal exam reveals normal bowel sounds, no masses, no organomegaly and no aortic enlargement. Extremities are nonedematous and both femoral and pedal pulses are normal.Examination of the skin revealed no evidence of significant rashes, suspicious appearing nevi or other concerning lesions. Neurologically the patient is awake and alert and there is no focal neurological deficit Results - Laboratory Findings CBC and BMP: 04/19/19 07:44 04/19/19 07:44 PT/INR, D-dimer PT 10.6 sec (9.0-12.0) 04/18/19 18:55 INR 1.0 (<1.2) 04/18/19 18:55 Abnormal lab findings: Abnormal Labs 04/18/19 04/18/19 04/18/19 18:55 18:55 18:55 WBC 12.0 H RBC 3.39 L Hgb 11.5 L Hct 32.6 L Neutrophils # 10.4 H Lymphocytes # 0.7 L APTT Sodium 120 L Potassium 3.1 L Chloride 85 L BUN 28 H Creatinine 0.49 L Glucose 136 H Plasma Lactic Acid Hugo Calcium 7.6 L Total Protein 5.3 L Albumin 2.9 L Influenza Type B (PCR) Detected H 04/18/19 04/18/19 04/18/19 18:55 18:55 23:20 WBC RBC Hgb Hct Neutrophils # Lymphocytes # APTT 31.7 H Sodium Potassium Chloride BUN Creatinine Glucose Plasma Lactic Acid Hugo 2.2 H* 2.5 H* Calcium Total Protein Albumin Influenza Type B (PCR) 04/19/19 04/19/19 04/19/19 03:24 03:24 07:44 WBC 11.0 H RBC 3.37 L Hgb 11.3 L Hct 33.4 L Neutrophils # 9.8 H Lymphocytes # 0.8 L APTT Sodium 127 L Potassium Chloride 92 L BUN Creatinine 0.53 L Glucose 145 H Plasma Lactic Acid Hugo 3.7 H* Calcium 7.6 L Total Protein Albumin Influenza Type B (PCR) 04/19/19 04/19/19 04/19/19 07:44 07:44 11:41 WBC RBC Hgb Hct Neutrophils # Lymphocytes # APTT Sodium 129 L Potassium Chloride 94 L BUN Creatinine 0.50 L Glucose 152 H Plasma Lactic Acid Hugo 4.2 H* 4.5 H* Calcium 8.1 L Total Protein Albumin Influenza Type B (PCR) - Diagnostic Findings Chest x-ray: image reviewed Assessment and Plan Plan: 1 acute COPD exacerbation secondary to an acute influenza B URI /bronchitis 2 acute influenza B infection with typical viral manifestations of acute influenza illness. 3 fever secondary to above 4 shortness of breath secondary to above 5 biapical pulmonary scarring as seen on today's chest x-ray 6 glaucoma 7 new onset atrial fibrillation With RVR, converted back into normal sinus rhythm 8 lactic acidosis Plan Tamiflu 75 mg by mouth twice a day IV Solu Medrol 40 mg every 8 hours DuoNeb nebulized treatments around the clock IV fluids and hydration Droplet isolation Chest x-ray was reviewed Echocardiogram regarding the A. fib Monitor lactic acid levels Monitor fever pattern Check thyroid function tests Consider anticoagulation based on history of PAF We'll continue to follow
[2019-04-19] MEDS: PANTOPRAZOLE 40 MG/10 ML VIAL IVP SCH ×3 (13:00→20:48)
[2019-04-19] MEDS: METOPROLOL TARTRATE 25 MG TAB PO SCH ×2 (13:00→20:48)
[2019-04-19 14:09] LABS: T4, Free (Free Thyroxine) 1.27 ng/dL (0.78-2.19)
[2019-04-19] MEDS: SODIUM CHLORIDE 0.9% 1,000 ML IV SCH ×3 (14:10→21:06)
--- NOTE | 2019-04-19 14:48 | P.CRDCN ---
History of Present Illness Consult date: 04/19/19 Requesting physician: Charlotte Knox Consult reason: atrial fibrillation Chief complaint: Cough and congestion History of present illness: This is a 64-year-old male patient with known history of COPD, and subsequently developed cough congestion and fever and body aches and he was diagnosed having acute influenza B infection. He was also mild COPD exacerbation. In the emergency was in A. fib RVR. He converted subsequent into normal sinus rhythm and the rhythm has remained sinus. No chest pain. No angina. No neurological deficits. He was started on Tamiflu and he was admitted to the cardiac floor. Blood pressure 120/60 with a heart rate in the 90s, 98% on room air. White blood cell count 12.0, 11.0 this morning, hemoglobin 11.5 on admission, 11.3 this morning, platelet count 178, sodium 02/26/2019, potassium 3.1, BUN 28, creatinine 0.4. Sodium 129 this morning, potassium 4.1, BUN 17, creatinine 0.5, plasma lactic acid is up to 4.5. Positive influenza B Troponin 0.012, 0.026. BNP 1660. Initial chest x-ray shows pulmonary and pleural scarring of the lung apices. Infiltrate in the left lower lobe is new as compared with prior exam. EKG on presentation shows atrial fibrillation with a rapid ventricular response. Patient overall feels significantly weak and tired. Past Medical History Past Medical History: No Reported History, COPD Additional Past Medical History / Comment(s): glaucoma History of Any Multi-Drug Resistant Organisms: None Reported Past Surgical History: Joint Replacement Additional Past Surgical History / Comment(s): LT SHOULDER sx in 2009 Past Psychological History: No Psychological Hx Reported Smoking Status: Former smoker Past Alcohol Use History: Occasional Additional Past Alcohol Use History / Comment(s): patient says he smoked for 45 years but quit 3 months ago. Drinks alcohol occasionally. Says a six pack lasts him about a month. Lives with daughter and her significant other. Past Drug Use History: None Reported - Past Family History Daughter(s) Family Medical History: No Reported History Medications and Allergies Home Medications Medication Instructions Recorded Confirmed Type Latanoprost [Xalatan 0.005%] 1 drop LEFT EYE DAILY 10/31/17 04/18/19 History Allergies Allergy/AdvReac Type Severity Reaction Status Date / Time aspirin Allergy Rash/Hives Verified 04/18/19 21:58 Physical Exam Vitals: Vital Signs Temp Pulse Pulse Resp BP BP Pulse Ox 04/19/19 12:00 97.7 F 90 18 119/59 98 04/19/19 11:45 72 04/19/19 11:36 76 04/19/19 08:18 74 04/19/19 08:09 76 04/19/19 08:00 109 H 18 112/86 98 04/19/19 04:00 97.5 F L 70 18 97/54 98 04/18/19 23:05 98.1 F 91 18 129/63 100 04/18/19 21:00 100 18 103/62 97 04/18/19 19:35 101.2 F H 146 H 18 111/67 98 04/18/19 19:04 81 18 04/18/19 18:52 72 18 04/18/19 18:29 100.7 F H 73 18 157/69 96 Intake and Output 04/18/19 04/19/19 04/19/19 22:59 06:59 14:59 Intake Total 360 Output Total 900 700 Balance -900 -340 Intake: Oral 360 Output: Urine 900 700 Other: Voiding Method Urinal # Bowel Movements 3 Weight 84.368 kg 82.1 kg The patient appeared well nourished and normally developed. Vital signs stable. Head exam is unremarkable. No scleral icterus or corneal arcus noted. Neck is without jugular venous distension, thyromegaly, or carotid bruits. Carotid upstrokes are brisk bilaterally. Lungs are diminished breath sound along with scattered rhonchi and scattered external wheeze. Cardiac exam S1-S2 normal . Rhythm is regular. No murmurs, rubs or gallops. Abdominal exam reveals normal bowel sounds, no masses, no organomegaly and no aortic enlargement. Extremities are nonedematous and both femoral and pedal pulses are normal. Examination of the skin revealed no evidence of significant rashes, suspicious appearing nevi or other concerning lesions. Neurologically the patient is awake and alert and there is no focal neurological deficit Results 04/19/19 07:44 04/19/19 07:44 Cardiac Enzymes 04/18/19 04/18/19 Range/Units 18:55 18:55 AST 38 (17-59) U/L Troponin I 0.026 (0.000-0.034) ng/mL Coagulation 04/18/19 Range/Units 18:55 PT 10.6 (9.0-12.0) sec APTT 31.7 H (22.0-30.0) sec CBC 04/18/19 04/19/19 Range/Units 18:55 07:44 WBC 12.0 H 11.0 H (3.8-10.6) k/uL RBC 3.39 L 3.37 L (4.30-5.90) m/uL Hgb 11.5 L 11.3 L (13.0-17.5) gm/dL Hct 32.6 L 33.4 L (39.0-53.0) % Plt Count 168 178 (150-450) k/uL Comprehensive Metabolic Panel 04/18/19 04/19/19 04/19/19 Range/Units 18:55 03:24 07:44 Sodium 120 L 127 L 129 L (137-145) mmol/L Potassium 3.1 L 3.7 4.1 (3.5-5.1) mmol/L Chloride 85 L 92 L 94 L (98-107) mmol/L Carbon Dioxide 24 25 25 (22-30) mmol/L BUN 28 H 20 17 (9-20) mg/dL Creatinine 0.49 L 0.53 L 0.50 L (0.66-1.25) mg/dL Glucose 136 H 145 H 152 H (74-99) mg/dL Calcium 7.6 L 7.6 L 8.1 L (8.4-10.2) mg/dL AST 38 (17-59) U/L ALT 15 (4-49) U/L Alkaline Phosphatase 65 (38-126) U/L Total Protein 5.3 L (6.3-8.2) g/dL Albumin 2.9 L (3.5-5.0) g/dL Current Medications Generic Name Dose Route Start Last Admin Trade Name Freq PRN Reason Stop Dose Admin Albuterol/Ipratropium 3 ml 04/18/19 20:19 Duoneb 0.5 Mg-3 Mg/3 Ml Soln INHALATION RT-Q4H PRN Shortness Of Breath Or Wheezing Albuterol/Ipratropium 3 ml 04/19/19 08:00 04/19/19 11:34 Duoneb 0.5 Mg-3 Mg/3 Ml Soln INHALATION 3 ml RT-QID TREVOR Administration Doxycycline Monohydrate 100 mg 04/19/19 10:00 04/19/19 11:31 Vibramycin PO 100 mg BID TREVOR Administration Ceftriaxone Sodium 1 gm/ 50 mls @ 100 mls/hr 04/19/19 10:00 04/19/19 11:31 Sodium Chloride IVPB 100 mls/hr Q24HR TREVOR Administration Sodium Chloride 1,000 mls @ 125 mls/hr 04/19/19 12:30 04/19/19 14:10 Saline 0.9% IV 125 mls/hr .Q8H TREVOR Administration Latanoprost 1 drops 04/19/19 21:00 Xalatan 0.005% LEFT EYE [facility] Methylprednisolone Sodium Succinate 40 mg 04/19/19 16:00 Solu-Medrol IV Q8HR [facility] Metoprolol Tartrate 25 mg 04/19/19 10:15 04/19/19 13:00 Lopressor PO 25 mg BID TREVOR Administration Oseltamivir Phosphate 75 mg 04/19/19 09:00 04/19/19 09:04 Tamiflu PO 04/23/19 21:01 75 mg Q12HR TREVOR Administration Pantoprazole Sodium 40 mg 04/19/19 11:15 04/19/19 13:01 Protonix IVP 40 mg BID TREVOR Administration Intake and Output 04/18/19 04/19/19 04/19/19 22:59 06:59 14:59 Intake Total 360 Output Total 900 700 Balance -900 -340 Intake: Oral 360 Output: Urine 900 700 Other: Voiding Method Urinal # Bowel Movements 3 Weight 84.368 kg 82.1 kg 04/19/19 07:44 04/19/19 07:44 EKG Interpretations (text) EKG showed atrial fibrillation with a rapid ventricular response Assessment and Plan Plan: Assessment and plan #1 acute COPD exacerbation secondary to an acute influenza B URI /bronchitis #2 acute influenza B infection with typical viral manifestations of acute influenza illness. #3 fever secondary to above #4 shortness of breath secondary to above #5 biapical pulmonary scarring as seen on today's chest x-ray #6 glaucoma #7 new onset atrial fibrillation With RVR, converted back into normal sinus rhythm #8 lactic acidosis Plan We will obtain an echocardiogram with Doppler study. Obtain a TSH level. Patient's episode of atrial fibrillation was a brief, we will continue to monitor for any further atrial fibrillation and continue metoprolol at this time. DNP note has been reviewed, I agree with a documented findings and plan of care. Patient was seen and examined.
--- NOTE | 2019-04-19 15:36 | ECHOF ---
Referral Reason:A-fib MEASUREMENTS -------- HEIGHT: 180.3 cm WEIGHT: 81.6 kg BP: 97/54 RVIDd: 3.6 cm (< 3.3) IVSd: 1.0 cm (0.6 - 1.1) LVIDd: 4.1 cm (3.9 - 5.3) LVPWd: 1.5 cm (0.6 - 1.1) IVSs: 1.5 cm LVIDs: 2.9 cm LVPWs: 2.0 cm Ao Diam: 3.8 cm (2.0 - 3.7) AV Cusp: 2.4 cm (1.5 - 2.6) MV EXCURSION: 19.132 mm (> 18.000) MV EF SLOPE: 132 mm/s (70 - 150) EPSS: 1.2 cm MV E Kailash: 0.95 m/s MV DecT: 320 ms MV A Kailash: 0.93 m/s MV E/A Ratio: 1.02 RAP: 5.00 mmHg RVSP: 34.89 mmHg FINDINGS -------- Sinus rhythm. This was a technically difficult study with suboptimal apical views. The left ventricular size is normal. There is mild concentric left ventricular hypertrophy. Overa ll left ventricular systolic function is low-normal with, an EF between 50 - 55 %. Cannot determine LAP and Diastolic Dysfunction Grade. The right ventricle is mildly enlarged. The left atrium was not well visualized. The right atrium was not well visualized. 5.0mg of Lumason was utilized for enhancement of images Interatrial and interventricular septum intact. The aortic valve was not well visualized. There is no evidence of aortic regurgitation. There is no evidence of aortic stenosis. The mitral valve was not well visualized. Mild tricuspid regurgitation present. There is mild pulmonary hypertension. The right ventricular systolic pressure, as measured by Doppler, is 34.89mmHg. The pulmonic valve was not well visualized. The aortic root is mildy dilated. There is no pericardial effusion. CONCLUSIONS -------- 1. Sinus rhythm. 2. This was a technically difficult study with suboptimal apical views. 3. The left ventricular size is normal. 4. There is mild concentric left ventricular hypertrophy. 5. Overall left ventricular systolic function is low-normal with, an EF between 50 - 55 %. 6. Cannot determine LAP and Diastolic Dysfunction Grade. 7. The right ventricle is mildly enlarged. 8. The left atrium was not well visualized. 9. The right atrium was not well visualized. 10. 5.0mg of Lumason was utilized for enhancement of images 11. Interatrial and interventricular septum intact. 12. The aortic valve was not well visualized. 13. There is no evidence of aortic regurgitation. 14. There is no evidence of aortic stenosis. 15. The mitral valve was not well visualized. 16. Mild tricuspid regurgitation present. 17. There is mild pulmonary hypertension. 18. The right ventricular systolic pressure, as measured by Doppler, is 34.89mmHg. 19. The pulmonic valve was not well visualized. 20. The aortic root is mildy dilated. 21. There is no pericardial effusion. REPRESENTATIVE GOVERNMENT RELATIONS: Jenae King RDCS
[2019-04-19] MEDS: methylPREDNISolone SOD SUCCI 40 MG/ML 1 ML VIAL IV SCH ×2 (16:03→23:04)
[2019-04-19] MEDS: INSULIN ASPART (NovoLOG) 100 UNIT/ML VIAL SQ SCH (20:48)
[2019-04-19] MEDS: LATANOPROST 0.005% OPHTH DROPS 2.5 ML BTL LEFT EYE SCH (20:48)
[2019-04-19 20:50] LABS: Glucose,Whole Blood 220 mg/dL (75-99)
[2019-04-19] MEDS ORDERED: SODIUM CHLORIDE 0.9% 500 ML 500 ML IV ONE (21:13)
[2019-04-19 21:32] LABS: Basophils % (A) 0 %; Eosinophils # (A) 0.1 k/uL (0-0.7); Eosinophils % (A) 0 %; HCT 26.9 % (39.0-53.0); Lymphocytes # (A) 0.7 k/uL (1.0-4.8); Lymphocytes % (A) 6 %; MCH 33.7 pg (25.0-35.0); MCHC 34.3 g/dL (31.0-37.0); MCV 98.4 fL (80.0-100.0); Mean Platelet Volume 8.4; Monocytes # (A) 0.2 k/uL (0-1.0); Monocytes % (A) 2 %; Neutrophils # (A) 10.8 k/uL (1.3-7.7); Neutrophils % (A) 91 %; Platelet Count 149 k/uL (150-450); RBC 2.73 m/uL (4.30-5.90); RDW 12.7 % (11.5-15.5); WBC 11.9 k/uL (3.8-10.6)
[2019-04-19 21:39] LABS: HGB 9.2 gm/dL (13.0-17.5)
[2019-04-20 03:15] LABS: HCT 25.2 % (39.0-53.0); HGB 8.7 gm/dL (13.0-17.5); MCH 34.3 pg (25.0-35.0); MCHC 34.4 g/dL (31.0-37.0); MCV 99.8 fL (80.0-100.0); Mean Platelet Volume 8.1; Platelet Count 104 k/uL (150-450); RBC 2.52 m/uL (4.30-5.90); RDW 12.7 % (11.5-15.5); WBC 11.2 k/uL (3.8-10.6)
[2019-04-20 03:40] LABS: African American GFR (CKD) >90 (>60 ml/min/1.73 sqM); Anion Gap 6 mmol/L; Blood Urea Nitrogen 7 mg/dL (9-20); Calcium 7.2 mg/dL (8.4-10.2); Carbon Dioxide 22 mmol/L (22-30); Chloride 99 mmol/L (98-107); Glucose 141 mg/dL (74-99); Non-African American GFR(CKD) >90 (>60 ml/min/1.73 sqM); Potassium 3.6 mmol/L (3.5-5.1); Sodium 127 mmol/L (137-145)
[2019-04-20 06:20] LABS: Glucose,Whole Blood 149 mg/dL (75-99)
[2019-04-20] MEDS: INSULIN ASPART (NovoLOG) 100 UNIT/ML VIAL SQ SCH (06:29)
[2019-04-20] MEDS ORDERED: metroNIDAZOLE 250 MG TABLET PO SCH (08:00)
[2019-04-20] MEDS: PANTOPRAZOLE 40 MG/10 ML VIAL IVP SCH ×2 (08:06→20:27)
[2019-04-20] MEDS: OSELTAMIVIR 75 MG CAP PO SCH ×2 (08:06→20:27)
[2019-04-20] MEDS: methylPREDNISolone SOD SUCCI 40 MG/ML 1 ML VIAL IV SCH (08:06)
[2019-04-20] MEDS: METOPROLOL TARTRATE 25 MG TAB PO SCH ×2 (08:06→20:27)
[2019-04-20] MEDS: SODIUM CHLORIDE 0.9% 1,000 ML IV SCH ×3 (08:07→21:50)
[2019-04-20] MEDS: DOXYCYCLINE 100 MG CAP PO SCH (08:07)
[2019-04-20] MEDS: IPRATROPIUM-ALBUTEROL 3 ML NEB INHALATION SCH ×4 (08:37→20:19)
[2019-04-20 09:25] LABS: HCT 26.5 % (39.0-53.0); MCH 33.8 pg (25.0-35.0); MCHC 33.9 g/dL (31.0-37.0); MCV 99.7 fL (80.0-100.0); Mean Platelet Volume 9.3; Platelet Count 139 k/uL (150-450); RBC 2.65 m/uL (4.30-5.90); RDW 12.8 % (11.5-15.5); WBC 12.4 k/uL (3.8-10.6)
--- NOTE | 2019-04-20 11:28 | P.PN ---
Subjective patient is admitted for influenza. There is no clear evidence of pneumonia or COPD exacerbation because of which are both antibody consistent steroids are being disc any acute as patient has C. diff colitis. Patient also has possible upper GI bleed once is a C. diff is better and diarrhea improves patient will undergo upper GI endoscopy and a colonoscopy as well. Patient had about 5 bowel movements are dark stools with the drop in hemoglobin to 9. Today he had one loose stool. Constitutional: Denied any fatigue denied any fever. Cardio vascular: denied any chest pain, palpitations Gastrointestinal as mentioned in HPI Pulmonary: Denied any shortness of breath cough Neurologic denied any new focal deficits All inpatient medications were reviewed and appropriate changes in these medications as dictated in the interval history and assessment and plan. Objective - Vital Signs Vital signs: Vital Signs Temp 98.2 F 04/20/19 08:00 Pulse 74 04/20/19 08:48 Resp 16 04/20/19 08:00 BP 111/55 04/20/19 08:00 Pulse Ox 94 L 04/20/19 08:00 Intake & Output 04/19/19 04/20/19 04/20/19 18:59 06:59 18:59 Intake Total 840 Output Total 700 Balance 140 Weight 86 kg Intake: Oral 840 Output: Urine 700 Other: Voiding Method Toilet Toilet Toilet # Voids 1 # Bowel Movements 2 2 - Exam PHYSICAL EXAMINATION: GENERAL: The patient is alert and oriented x3, not in any acute distress. Well developed, well nourished. HEENT: Pupils are round and equally reacting to light. EOMI. No scleral icterus. No conjunctival pallor. Normocephalic, atraumatic. No pharyngeal erythema. No thyromegaly. CARDIOVASCULAR: S1 and S2 present. No murmurs, rubs, or gallops. PULMONARY:mildly decreased air entry into bilateral lung malagon ABDOMEN: Soft, nontender, nondistended, normoactive bowel sounds. No palpable organomegaly. MUSCULOSKELETAL: No joint swelling or deformity. EXTREMITIES: No cyanosis, clubbing, or pedal edema. NEUROLOGICAL: Gross neurological examination did not reveal any focal deficits. SKIN: No rashes. - Labs CBC & Chem 7: 04/20/19 09:09 04/20/19 02:54 Labs: Abnormal Lab Results - Last 24 Hours (Table) 04/19/19 04/19/19 04/19/19 Range/Units 07:44 11:41 15:36 WBC (3.8-10.6) k/uL RBC (4.30-5.90) m/uL Hgb (13.0-17.5) gm/dL Hct (39.0-53.0) % Plt Count (150-450) k/uL Neutrophils # (1.3-7.7) k/uL Lymphocytes # (1.0-4.8) k/uL Sodium (137-145) mmol/L BUN (9-20) mg/dL Creatinine (0.66-1.25) mg/dL Glucose (74-99) mg/dL POC Glucose (mg/dL) (75-99) mg/dL Osmolality (280-301) mosm/kg Plasma Lactic Acid Hugo 4.5 H* 3.8 H* (0.7-2.0) mmol/L Calcium (8.4-10.2) mg/dL TSH 0.232 L (0.465-4.680) mIU/L C. difficile (EIA) Intrp (Negative) 04/19/19 04/19/19 04/19/19 Range/Units 19:15 19:18 20:39 WBC (3.8-10.6) k/uL RBC (4.30-5.90) m/uL Hgb (13.0-17.5) gm/dL Hct (39.0-53.0) % Plt Count (150-450) k/uL Neutrophils # (1.3-7.7) k/uL Lymphocytes # (1.0-4.8) k/uL Sodium (137-145) mmol/L BUN (9-20) mg/dL Creatinine (0.66-1.25) mg/dL Glucose (74-99) mg/dL POC Glucose (mg/dL) 220 H (75-99) mg/dL Osmolality (280-301) mosm/kg Plasma Lactic Acid Hugo 4.5 H* (0.7-2.0) mmol/L Calcium (8.4-10.2) mg/dL TSH (0.465-4.680) mIU/L C. difficile (EIA) Intrp Positive A (Negative) 02/22/20 02/23/20 02/23/20 Range/Units 21:12 02:54 02:54 WBC 11.9 H 11.2 H (3.8-10.6) k/uL RBC 2.73 L 2.52 L (4.30-5.90) m/uL Hgb 9.2 L D 8.7 L (13.0-17.5) gm/dL Hct 26.9 L 25.2 L (39.0-53.0) % Plt Count 149 L 104 L (150-450) k/uL Neutrophils # 10.8 H (1.3-7.7) k/uL Lymphocytes # 0.7 L (1.0-4.8) k/uL Sodium 127 L (137-145) mmol/L BUN 7 L (9-20) mg/dL Creatinine 0.45 L (0.66-1.25) mg/dL Glucose 141 H (74-99) mg/dL POC Glucose (mg/dL) (75-99) mg/dL Osmolality (280-301) mosm/kg Plasma Lactic Acid Hugo (0.7-2.0) mmol/L Calcium 7.2 L (8.4-10.2) mg/dL TSH (0.465-4.680) mIU/L C. difficile (EIA) Intrp (Negative) 04/20/19 04/20/19 04/20/19 Range/Units 02:54 06:02 09:09 WBC 12.4 H (3.8-10.6) k/uL RBC 2.65 L (4.30-5.90) m/uL Hgb 9.0 L (13.0-17.5) gm/dL Hct 26.5 L (39.0-53.0) % Plt Count 139 L (150-450) k/uL Neutrophils # (1.3-7.7) k/uL Lymphocytes # (1.0-4.8) k/uL Sodium (137-145) mmol/L BUN (9-20) mg/dL Creatinine (0.66-1.25) mg/dL Glucose (74-99) mg/dL POC Glucose (mg/dL) 149 H (75-99) mg/dL Osmolality 274 L (280-301) mosm/kg Plasma Lactic Acid Hugo (0.7-2.0) mmol/L Calcium (8.4-10.2) mg/dL TSH (0.465-4.680) mIU/L C. difficile (EIA) Intrp (Negative) Microbiology - Last 24 Hours (Table) 04/18/19 18:55 Blood Culture - Preliminary Blood No Growth after 24 hours Assessment and Plan Plan: -sepsis secondary to influenza probably the infiltrate in the lung that is because of influenza patient has C. diff colitis suspicion of pneumonia is low because of Her antibiotics were dyspnea and patient will be started on oral vancomycin. -Atrial fibrillation proximal A. fib new onset rapid ventricular rate on admission presently resolved patient is sinus rhythm not on anti-coagulation because of the possibly of GI bleed and.stools. Patient is on beta génesis echocardiogram showed normal ejection fraction not require automatic coagulation , the addition will be left to cardiology. -C. diff colitis steroids and antibodies risk because of the above-mentioned reasons as patient doesn't have any significant COPD exacerbation or pneumonia. Was started on inhaled steroids -Nicotine abuse not in acute exacerbation will not require any systemic steroids. -hyponatremia still believe it's stable with hyponatremia continue with IV fluids because of continued diarrhea patient is still hyponatremic but will obtain serum osmolality urine osmolality urine random sodium, urine random creatinine and the TSH -possibly of upper GI bleed patient will be started on Protonixand will be monitored closely. For any evidence of GI bleed clinically.his hemoglobin is 11.3 -DVT prophylaxis early ambulation
[2019-04-20 11:29] LABS: Glucose,Whole Blood 170 mg/dL (75-99)
--- NOTE | 2019-04-20 11:57 | CONS ---
CONSULTATION DATE OF DICTATION: 04/20/2019 REQUESTING PHYSICIAN: Dr. Cooley. REASON FOR CONSULTATION: Abdominal pain, diarrhea, and black, tarry stools. HISTORY OF PRESENT ILLNESS: The patient is a 64-year-old, pleasant, white male who came into the emergency room complaining of cough, fever, chills, and body aches for the last three to four days' duration. He was subsequently diagnosed with influenza B. the patient also was complaining of cramping lower abdominal pain with diarrhea that started on Sunday. He was having about six to eight loose, watery bowel movements daily and a couple of days ago was up to 12 daily. He denies taking any Pepto-Bismol. He denies taking any antibiotics recently. He denies any epigastric pain. Reports no nausea or vomiting. Takes ibuprofen once or twice a week for occasional headaches. After he came to the emergency room, his initial hemoglobin was 11 g/dL, subsequently down to 9 g/dL. Stool was hemoccult positive and, hence, we are consulted for possible GI bleed. In the meantime, stool was positive for C difficile and he was started on Flagyl. He was also diagnosed with upper respiratory infection and presently on antibiotics. No prior history of peptic ulcer disease. No prior history of EGD or colonoscopy in the past. PAST MEDICAL HISTORY: COPD. MEDICATIONS AT HOME: Xalatan eye drops. ALLERGIES: ASPIRIN. SOCIAL HISTORY: Former smoker. No alcohol use. PAST SURGICAL HISTORY: Left shoulder surgery. REVIEW OF SYSTEMS: CARDIOPULMONARY: No chest pain, shortness of breath. GENITOURINARY: No dysuria or hematuria. MUSCULOSKELETAL: Unremarkable. SKIN: Unremarkable. ENDOCRINE: Unremarkable. PSYCHIATRIC: Unremarkable. NEUROLOGY: Unremarkable. ENT/VISION: Unremarkable. GI: As mentioned above. CONSTITUTIONAL: No recent weight loss. No fever, chills, night sweats. PHYSICAL EXAMINATION: He appears comfortable. No apparent distress. VITAL SIGNS: Stable. Blood pressure is 111/55, pulse rate 72, temperature 98.2. HEENT: Unremarkable. Conjunctivae pink. Sclerae anicteric. Oral cavity no lesions. NECK: No JVD or lymph node enlargement. CHEST: Clear to auscultation. HEART: Regular rate and rhythm. ABDOMEN: Soft. Bowel sounds are positive. It was nontender. EXTREMITIES: No pedal edema. SKIN: No rashes. NEUROLOGIC: Alert and oriented x3. No focal deficits. LABS: Labs from the time of admission to the hospital: WBC 12, hemoglobin 11.5, platelets normal. Basic metabolic panel shows sodium of 120, potassium 3.1, BUN and creatinine are 28 and 0.40 respectively. Today, BUN and creatinine are 7 and 0.45, sodium is 127. Lactic acid was 2.5, which is normal now. ALT, AST, total bilirubin, alkaline phosphatase are normal. Stool occult blood was positive. C difficile toxin positive. Influenza type B by PCR detected. Hemoglobin today is 9, WBC 12.4, and platelets 139. IMPRESSION: 1. Diarrhea for the last four days' duration. Clostridium difficile was positive, consistent with Clostridium difficile colitis. Presently on Flagyl 500 mg three times daily. Still had about three loose, watery bowel movements today. 2. Gradual drop in hemoglobin with black, tarry stools for the last five days. No history of peptic ulcer disease. Possible upper GI bleeding. Hemoglobin currently remains stable. No nausea or vomiting. 3. Influenza B with upper respiratory infection. Presently on antibiotics. 4. History of chronic obstructive pulmonary disease. RECOMMENDATIONS: 1. Start him on a clear liquid diet. 2. Continue with Protonix 40 mg daily. 3. Monitor CBC closely. 4. Continue with Flagyl 500 mg three times daily for C difficile colitis. 5. If he continues to have drop in hemoglobin, will consider an upper endoscopy once his respiratory status improves. The plan was discussed with the patient, he is agreeable to it. Thank you for this consultation. DEANGELO / ISABELLEN: [id number] /
[2019-04-20] MEDS: CHERRY FLAVOR 60 ML BOTTLE PO PRN ×2 (12:04→17:42)
[2019-04-20] MEDS: VANCOMYCIN ORAL SOLUTION 250 MG/5 ML BOTTLE PO SCH ×3 (12:06→22:48)
--- NOTE | 2019-04-20 12:23 | P.PN ---
Subjective Progress Note Date: 04/20/19 This is a 64-year-old male patient with known history of COPD, and subsequently developed cough congestion and fever and body aches and he was diagnosed having acute influenza B infection. He was also mild COPD exacerbation. In the emergency was in A. fib RVR. He converted subsequent into normal sinus rhythm and the rhythm has remained sinus. No chest pain. No angina. No neurological deficits. He was started on Tamiflu and he was admitted to the cardiac floor. Blood pressure 120/60 with a heart rate in the 90s, 98% on room air. White blood cell count 12.0, 11.0 this morning, hemoglobin 11.5 on admission, 11.3 this morning, platelet count 178, sodium 02/26/2019, potassium 3.1, BUN 28, crea tinine 0.4. Sodium 129 this morning, potassium 4.1, BUN 17, creatinine 0.5, plasma lactic acid is up to 4.5. Positive influenza B Troponin 0.012, 0.026. BNP 1660. Initial chest x-ray shows pulmonary and pleural scarring of the lung apices. Infiltrate in the left lower lobe is new as compared with prior exam. EKG on presentation shows atrial fibrillation with a rapid ventricular response. Patient overall feels significantly weak and tired. 04/20/2019 Patient seen and examined this morning, positive for C. diff, and 10 used to have loose stools. Hemoglobin today is 9. No further episodes of atrial fibrillation have been noted on the monitor. Echocardiogram with Doppler study revealed a normal left ventricular systolic function. Objective - Vital Signs Vital signs: Vital Signs Temp 98.3 F 04/20/19 12:00 Pulse 90 04/20/19 12:00 Resp 16 04/20/19 12:00 BP 105/58 04/20/19 12:00 Pulse Ox 92 L 04/20/19 12:00 Intake & Output 04/19/19 04/20/19 04/20/19 18:59 06:59 18:59 Intake Total 840 Output Total 700 Balance 140 Weight 86 kg Intake: Oral 840 Output: Urine 700 Other: Voiding Method Toilet Toilet Toilet # Voids 1 # Bowel Movements 2 2 - Exam The patient appeared well nourished and normally developed. Vital signs stable. Head exam is unremarkable. No scleral icterus or corneal arcus noted. Neck is without jugular venous distension, thyromegaly, or carotid bruits. Carotid upstrokes are brisk bilaterally. Lungs are diminished breath sound along with scattered rhonchi and scattered external wheeze. Cardiac exam S1-S2 normal . Rhythm is regular. No murmurs, rubs or gallops. Abdominal exam reveals normal bowel sounds, no masses, no organomegaly and no aortic enlargement. Extremities are nonedematous and both femoral and pedal pulses are normal. Examination of the skin revealed no evidence of significant rashes, suspicious appearing nevi or other concerning lesions. Neurologically the patient is awake and alert and there is no focal neurological deficit - Labs CBC & Chem 7: 04/20/19 09:09 04/20/19 02:54 Labs: Abnormal Lab Results - Last 24 Hours (Table) 04/19/19 04/19/19 04/19/19 Range/Units 07:44 15:36 19:15 WBC (3.8-10.6) k/uL RBC (4.30-5.90) m/uL Hgb (13.0-17.5) gm/dL Hct (39.0-53.0) % Plt Count (150-450) k/uL Neutrophils # (1.3-7.7) k/uL Lymphocytes # (1.0-4.8) k/uL Sodium (137-145) mmol/L BUN (9-20) mg/dL Creatinine (0.66-1.25) mg/dL Glucose (74-99) mg/dL POC Glucose (mg/dL) (75-99) mg/dL Osmolality (280-301) mosm/kg Plasma Lactic Acid Hugo 3.8 H* (0.7-2.0) mmol/L Calcium (8.4-10.2) mg/dL TSH 0.232 L (0.465-4.680) mIU/L C. difficile (EIA) Intrp Positive A (Negative) 04/19/19 04/19/19 04/19/19 Range/Units 19:18 20:39 21:12 WBC 11.9 H (3.8-10.6) k/uL RBC 2.73 L (4.30-5.90) m/uL Hgb 9.2 L D (13.0-17.5) gm/dL Hct 26.9 L (39.0-53.0) % Plt Count 149 L (150-450) k/uL Neutrophils # 10.8 H (1.3-7.7) k/uL Lymphocytes # 0.7 L (1.0-4.8) k/uL Sodium (137-145) mmol/L BUN (9-20) mg/dL Creatinine (0.66-1.25) mg/dL Glucose (74-99) mg/dL POC Glucose (mg/dL) 220 H (75-99) mg/dL Osmolality (280-301) mosm/kg Plasma Lactic Acid Hugo 4.5 H* (0.7-2.0) mmol/L Calcium (8.4-10.2) mg/dL TSH (0.465-4.680) mIU/L C. difficile (EIA) Intrp (Negative) 04/20/19 04/20/19 04/20/19 Range/Units 02:54 02:54 02:54 WBC 11.2 H (3.8-10.6) k/uL RBC 2.52 L (4.30-5.90) m/uL Hgb 8.7 L (13.0-17.5) gm/dL Hct 25.2 L (39.0-53.0) % Plt Count 104 L (150-450) k/uL Neutrophils # (1.3-7.7) k/uL Lymphocytes # (1.0-4.8) k/uL Sodium 127 L (137-145) mmol/L BUN 7 L (9-20) mg/dL Creatinine 0.45 L (0.66-1.25) mg/dL Glucose 141 H (74-99) mg/dL POC Glucose (mg/dL) (75-99) mg/dL Osmolality 274 L (280-301) mosm/kg Plasma Lactic Acid Hugo (0.7-2.0) mmol/L Calcium 7.2 L (8.4-10.2) mg/dL TSH (0.465-4.680) mIU/L C. difficile (EIA) Intrp (Negative) 04/20/19 04/20/19 04/20/19 Range/Units 06:02 09:09 11:27 WBC 12.4 H (3.8-10.6) k/uL RBC 2.65 L (4.30-5.90) m/uL Hgb 9.0 L (13.0-17.5) gm/dL Hct 26.5 L (39.0-53.0) % Plt Count 139 L (150-450) k/uL Neutrophils # (1.3-7.7) k/uL Lymphocytes # (1.0-4.8) k/uL Sodium (137-145) mmol/L BUN (9-20) mg/dL Creatinine (0.66-1.25) mg/dL Glucose (74-99) mg/dL POC Glucose (mg/dL) 149 H 170 H (75-99) mg/dL Osmolality (280-301) mosm/kg Plasma Lactic Acid Hugo (0.7-2.0) mmol/L Calcium (8.4-10.2) mg/dL TSH (0.465-4.680) mIU/L C. difficile (EIA) Intrp (Negative) Microbiology - Last 24 Hours (Table) 04/18/19 18:55 Blood Culture - Preliminary Blood No Growth after 24 hours Assessment and Plan Plan: Assessment and plan #1 acute COPD exacerbation secondary to an acute influenza B URI /bronchitis #2 acute influenza B infection with typical viral manifestations of acute influenza illness. #3 fever secondary to above #4 shortness of breath secondary to above #5 biapical pulmonary scarring as seen on today's chest x-ray #6 glaucoma #7 new onset atrial fibrillation With RVR, converted back into normal sinus rhythm #8 lactic acidosis Plan Echocardiogram with Doppler study revealed a normal left ventricular systolic function. Patient has had no further episodes of atrial fibrillation documented. We will follow this patient along with you now on an as-needed basis only, please on hesitate to call with any questions. If the patient does have further atrial fibrillation documented, he will need to be initiated on anticoagulation. DNP note has been reviewed, I agree with a documented findings and plan of care. Patient was seen and examined.
--- NOTE | 2019-04-20 13:41 | P.PN ---
Subjective Progress Note Date: 04/20/19 64-year-old male patient with known history of COPD, and subsequently developed cough congestion and fever and body aches and he was diagnosed having acute influenza B infection. He was also mild COPD exacerbation. In the emergency was in A. fib RVR. He converted subsequent into normal sinus rhythm and the rhythm has remained sinus. No chest pain. No angina. No neurological deficits. He was started on Tamiflu and he was admitted to the floor. Chest x- ray showed biapical guarding along with COPD without any clear airspace disease. The patient has no other new complaints. He feels rotten and a weak and tired and fatigued. On today's evaluation of 04/20/2019 the patient is feeling better. As stated earlier the patient was diagnosed having influenza B, COPD exacerbation and A. fib with RVR. He is feeling better. His being treated with Tamiflu. He is on room air oxygen. No fever. No chills. Note that he was having diarrhea even on an outpatient basis. After arriving To the hospital, his stool was checked and it did not the positive for C. diff. He declines taken any antibiotics on outpatient basis. He was given antibiotics in the hospital for all discontinued. His neck against level is improving is down to 2.0. He was started on oral vancomycin. Objective - Vital Signs Vital signs: Vital Signs Temp 98.3 F 04/20/19 12:00 Pulse 76 04/20/19 12:27 Resp 16 04/20/19 12:00 BP 105/58 04/20/19 12:00 Pulse Ox 92 L 04/20/19 12:00 Intake & Output 04/19/19 04/20/19 04/20/19 18:59 06:59 18:59 Intake Total 840 Output Total 700 Balance 140 Weight 86 kg Intake: Oral 840 Output: Urine 700 Other: Voiding Method Toilet Toilet Toilet # Voids 1 # Bowel Movements 2 2 - Exam The patient appeared well nourished and normally developed. Vital signs as documented. Head exam is unremarkable. No scleral icterus or corneal arcus noted. Neck is without jugular venous distension, thyromegaly, or carotid bruits. Carotid upstrokes are brisk bilaterally. Lungs are diminished breath sound along with scattered rhonchi and scattered external wheeze. Cardiac exam reveals the PMI to be normally sized and situated. Rhythm is regular. First and second heart sounds normal. No murmurs, rubs or gallops. Abdominal exam reveals normal bowel sounds, no masses, no organomegaly and no aortic enlargement. Extremities are nonedematous and both femoral and pedal pulses are normal.Examination of the skin revealed no evidence of significant rashes, suspicious appearing nevi or other concerning lesions. Neurologically the patient is awake and alert and there is no focal neurological deficit - Labs CBC & Chem 7: 04/20/19 09:09 04/20/19 02:54 Labs: Abnormal Lab Results - Last 24 Hours (Table) 04/19/19 04/19/19 04/19/19 Range/Units 07:44 15:36 19:15 WBC (3.8-10.6) k/uL RBC (4.30-5.90) m/uL Hgb (13.0-17.5) gm/dL Hct (39.0-53.0) % Plt Count (150-450) k/uL Neutrophils # (1.3-7.7) k/uL Lymphocytes # (1.0-4.8) k/uL Sodium (137-145) mmol/L BUN (9-20) mg/dL Creatinine (0.66-1.25) mg/dL Glucose (74-99) mg/dL POC Glucose (mg/dL) (75-99) mg/dL Osmolality (280-301) mosm/kg Plasma Lactic Acid Hugo 3.8 H* (0.7-2.0) mmol/L Calcium (8.4-10.2) mg/dL TSH 0.232 L (0.465-4.680) mIU/L C. difficile (EIA) Intrp Positive A (Negative) 04/19/19 04/19/19 04/19/19 Range/Units 19:18 20:39 21:12 WBC 11.9 H (3.8-10.6) k/uL RBC 2.73 L (4.30-5.90) m/uL Hgb 9.2 L D (13.0-17.5) gm/dL Hct 26.9 L (39.0-53.0) % Plt Count 149 L (150-450) k/uL Neutrophils # 10.8 H (1.3-7.7) k/uL Lymphocytes # 0.7 L (1.0-4.8) k/uL Sodium (137-145) mmol/L BUN (9-20) mg/dL Creatinine (0.66-1.25) mg/dL Glucose (74-99) mg/dL POC Glucose (mg/dL) 220 H (75-99) mg/dL Osmolality (280-301) mosm/kg Plasma Lactic Acid Hugo 4.5 H* (0.7-2.0) mmol/L Calcium (8.4-10.2) mg/dL TSH (0.465-4.680) mIU/L C. difficile (EIA) Intrp (Negative) 04/20/19 04/20/19 04/20/19 Range/Units 02:54 02:54 02:54 WBC 11.2 H (3.8-10.6) k/uL RBC 2.52 L (4.30-5.90) m/uL Hgb 8.7 L (13.0-17.5) gm/dL Hct 25.2 L (39.0-53.0) % Plt Count 104 L (150-450) k/uL Neutrophils # (1.3-7.7) k/uL Lymphocytes # (1.0-4.8) k/uL Sodium 127 L (137-145) mmol/L BUN 7 L (9-20) mg/dL Creatinine 0.45 L (0.66-1.25) mg/dL Glucose 141 H (74-99) mg/dL POC Glucose (mg/dL) (75-99) mg/dL Osmolality 274 L (280-301) mosm/kg Plasma Lactic Acid Hugo (0.7-2.0) mmol/L Calcium 7.2 L (8.4-10.2) mg/dL TSH (0.465-4.680) mIU/L C. difficile (EIA) Intrp (Negative) 04/20/19 04/20/19 04/20/19 Range/Units 06:02 09:09 11:27 WBC 12.4 H (3.8-10.6) k/uL RBC 2.65 L (4.30-5.90) m/uL Hgb 9.0 L (13.0-17.5) gm/dL Hct 26.5 L (39.0-53.0) % Plt Count 139 L (150-450) k/uL Neutrophils # (1.3-7.7) k/uL Lymphocytes # (1.0-4.8) k/uL Sodium (137-145) mmol/L BUN (9-20) mg/dL Creatinine (0.66-1.25) mg/dL Glucose (74-99) mg/dL POC Glucose (mg/dL) 149 H 170 H (75-99) mg/dL Osmolality (280-301) mosm/kg Plasma Lactic Acid Hugo (0.7-2.0) mmol/L Calcium (8.4-10.2) mg/dL TSH (0.465-4.680) mIU/L C. difficile (EIA) Intrp (Negative) Microbiology - Last 24 Hours (Table) 04/18/19 18:55 Blood Culture - Preliminary Blood No Growth after 24 hours Assessment and Plan Plan: 1 acute COPD exacerbation secondary to an acute influenza B URI /bronchitis 2 acute influenza B infection with typical viral manifestations of acute influenza illness. 3 fever secondary to above, improved 4 shortness of breath secondary to above, improving 5 biapical pulmonary scarring as seen on today's chest x-ray 6 glaucoma 7 new onset atrial fibrillation With RVR, converted back into normal sinus rhythm 8 lactic acidosis, improving 9 diarrhea secondary to C. diff and the patient is currently on oral vancomycin 10 upper GI bleeding suspected and there was a drop in hemoglobin from 11.5 down to 9.0. GI has been consulted 11 hyponatremia, improving Plan Tamiflu 75 mg by mouth twice a day DuoNeb nebulized treatments around the clock IV fluids and hydration add 125 mL an hour Droplet isolation Monitor lactic acid levels, improving Monitor fever pattern, improving Check thyroid function tests are within normal limits. The patient is going to have a GI evaluation for possible EGD to rule out upper GI source of bleeding. Hemoglobin is stable and the patient has not been placed on anticoagulation. Monitor electrodes including sodium level Continue the saline infusion Avoid antibiotics knowing that the patient has C. diff and the patient has been started on oral vancomycin. We'll continue to follow
[2019-04-20 15:01] LABS: Basophils % (A) 0 %; Eosinophils % (A) 0 %; HCT 24.7 % (39.0-53.0); HGB 8.3 gm/dL (13.0-17.5); Lymphocytes # (A) 0.7 k/uL (1.0-4.8); Lymphocytes % (A) 7 %; MCH 33.8 pg (25.0-35.0); MCHC 33.7 g/dL (31.0-37.0); MCV 100.3 fL (80.0-100.0); Mean Platelet Volume 9.9; Monocytes # (A) 0.3 k/uL (0-1.0); Monocytes % (A) 3 %; Neutrophils # (A) 8.8 k/uL (1.3-7.7); Neutrophils % (A) 90 %; Platelet Count 125 k/uL (150-450); RBC 2.46 m/uL (4.30-5.90); WBC 9.9 k/uL (3.8-10.6)
[2019-04-20 16:57] LABS: Glucose,Whole Blood 193 mg/dL (75-99)
[2019-04-20] MEDS: BUDESONIDE 0.5 MG/2 ML NEBU INHALATION SCH (20:19)
[2019-04-20 20:22] LABS: Glucose,Whole Blood 171 mg/dL (75-99)
[2019-04-20] MEDS: LATANOPROST 0.005% OPHTH DROPS 2.5 ML BTL LEFT EYE SCH (20:28)
[2019-04-20 21:19] LABS: HCT 24.4 % (39.0-53.0); HGB 8.2 gm/dL (13.0-17.5); MCH 33.5 pg (25.0-35.0); MCHC 33.4 g/dL (31.0-37.0); MCV 100.2 fL (80.0-100.0); Mean Platelet Volume 9.1; Platelet Count 133 k/uL (150-450); RBC 2.44 m/uL (4.30-5.90); RDW 12.8 % (11.5-15.5); WBC 9.8 k/uL (3.8-10.6)
[2019-04-20 22:33] LABS: Creatinine,Urine Random 66.2 mg/dL
[2019-04-21] MEDS: VANCOMYCIN ORAL SOLUTION 250 MG/5 ML BOTTLE PO SCH ×4 (05:49→23:02)
[2019-04-21 06:48] LABS: HCT 23.9 % (39.0-53.0); HGB 8.1 gm/dL (13.0-17.5); MCH 33.5 pg (25.0-35.0); MCHC 33.6 g/dL (31.0-37.0); MCV 99.6 fL (80.0-100.0); Mean Platelet Volume 8.6; Platelet Count 147 k/uL (150-450); RBC 2.41 m/uL (4.30-5.90); WBC 9.5 k/uL (3.8-10.6)
[2019-04-21 07:01] LABS: African American GFR (CKD) >90 (>60 ml/min/1.73 sqM); Anion Gap 5 mmol/L; Blood Urea Nitrogen 4 mg/dL (9-20); Calcium 7.2 mg/dL (8.4-10.2); Carbon Dioxide 27 mmol/L (22-30); Chloride 97 mmol/L (98-107); Glucose 91 mg/dL (74-99); Magnesium 2.1 mg/dL (1.6-2.3); Non-African American GFR(CKD) >90 (>60 ml/min/1.73 sqM); Potassium 3.2 mmol/L (3.5-5.1); Sodium 129 mmol/L (137-145)
[2019-04-21] MEDS ORDERED: POTASSIUM CHLORIDE ER 20 MEQ TAB.ER PO STA (08:38)
[2019-04-21] MEDS: SODIUM CHLORIDE 0.9% 1,000 ML IV SCH ×5 (08:48→21:56)
[2019-04-21] MEDS: METOPROLOL TARTRATE 25 MG TAB PO SCH ×2 (08:52→21:30)
[2019-04-21] MEDS: OSELTAMIVIR 75 MG CAP PO SCH ×2 (08:52→21:30)
[2019-04-21] MEDS: PANTOPRAZOLE 40 MG/10 ML VIAL IVP SCH ×2 (08:52→21:29)
[2019-04-21] MEDS: BUDESONIDE 0.5 MG/2 ML NEBU INHALATION SCH ×2 (08:57→21:41)
[2019-04-21] MEDS: IPRATROPIUM-ALBUTEROL 3 ML NEB INHALATION SCH ×4 (08:57→21:41)
--- NOTE | 2019-04-21 10:56 | P.PN ---
Subjective Progress Note Date: 04/21/19 On O2 2019 patient seen in follow-up on selective care unit, he is awake and alert, in no acute distress, he states his breathing is still dyspneic. He is currently on room air, and his pulse ox is 96%, lung sounds reveal some scattered rhonchi and bilateral bases, patient has a productive cough, is on Tamiflu for influenza B infection, and remains on oral vancomycin for C. diff infection, he states his diarrhea is improving. No new chest x-rays today. Today's labs have been reviewed, showing white blood cell count of 9.5, hemoglobin continues to trend down, and is down to 8.1, platelet count was 147, serum sodium is 129, potassium is 3.2, chloride is 97, CO2 is 27, B1 of 4 creatinine 0.60. GI evaluation is pending in regards to down trending hemoglobin, suspected upper GI blood loss anemia Objective - Vital Signs Vital signs: Vital Signs Temp 98.3 F 04/21/19 08:00 Pulse 82 04/21/19 09:13 Resp 18 04/21/19 08:00 BP 128/77 04/21/19 08:00 Pulse Ox 96 04/21/19 08:00 Intake & Output 04/20/19 04/21/19 04/21/19 18:59 06:59 18:59 Intake Total 240 820 Output Total 700 Balance -460 820 Weight 88.7 kg Intake: Oral 240 820 Output: Urine 700 Other: Voiding Method Toilet Toilet - Exam GENERAL EXAM: Alert, very pleasant, 64-year-old white male, on room air pulse ox of 96% comfortable in no apparent distress. HEAD: Normocephalic/atraumatic. EYES: Normal reaction of pupils, equal size. Conjunctiva pink, sclera white. NOSE: Clear with pink turbinates. THROAT: No erythema or exudates. NECK: No masses, no JVD, no thyroid enlargement, no adenopathy. CHEST: No chest wall deformity. Symmetrical expansion. LUNGS: Equal air entry with few scattered rhonchi, but no wheeze, dullness. CVS: Regular rate and rhythm, normal S1 and S2, no gallops, no murmurs, no rubs ABDOMEN: Soft, nontender. No hepatosplenomegaly, normal bowel sounds, no guarding or rigidity. EXTREMITIES: No clubbing, no edema, no cyanosis, 2+ pulses and upper and lower extremities. MUSCULOSKELETAL: Muscle strength and tone normal. SPINE: No scoliosis or deformity SKIN: No rashes CENTRAL NERVOUS SYSTEM: Alert and oriented -3. No focal deficits, tone is normal in all 4 extremities. PSYCHIATRIC: Alert and oriented -3. Appropriate affect. Intact judgment and insight. - Labs CBC & Chem 7: 04/21/19 05:41 04/21/19 05:41 Labs: Abnormal Lab Results - Last 24 Hours (Table) 04/20/19 04/20/19 04/20/19 Range/Units 02:54 11:27 14:50 RBC 2.46 L (4.30-5.90) m/uL Hgb 8.3 L (13.0-17.5) gm/dL Hct 24.7 L (39.0-53.0) % MCV 100.3 H (80.0-100.0) fL Plt Count 125 L (150-450) k/uL Neutrophils # 8.8 H (1.3-7.7) k/uL Lymphocytes # 0.7 L (1.0-4.8) k/uL Sodium (137-145) mmol/L Potassium (3.5-5.1) mmol/L Chloride (98-107) mmol/L BUN (9-20) mg/dL Creatinine (0.66-1.25) mg/dL POC Glucose (mg/dL) 170 H (75-99) mg/dL Osmolality 274 L (280-301) mosm/kg Calcium (8.4-10.2) mg/dL 04/20/19 04/20/19 04/20/19 Range/Units 16:47 20:16 21:02 RBC 2.44 L (4.30-5.90) m/uL Hgb 8.2 L (13.0-17.5) gm/dL Hct 24.4 L (39.0-53.0) % MCV 100.2 H (80.0-100.0) fL Plt Count 133 L (150-450) k/uL Neutrophils # (1.3-7.7) k/uL Lymphocytes # (1.0-4.8) k/uL Sodium (137-145) mmol/L Potassium (3.5-5.1) mmol/L Chloride (98-107) mmol/L BUN (9-20) mg/dL Creatinine (0.66-1.25) mg/dL POC Glucose (mg/dL) 193 H 171 H (75-99) mg/dL Osmolality (280-301) mosm/kg Calcium (8.4-10.2) mg/dL 04/21/19 04/21/19 Range/Units 05:41 05:41 RBC 2.41 L (4.30-5.90) m/uL Hgb 8.1 L (13.0-17.5) gm/dL Hct 23.9 L (39.0-53.0) % MCV (80.0-100.0) fL Plt Count 147 L (150-450) k/uL Neutrophils # (1.3-7.7) k/uL Lymphocytes # (1.0-4.8) k/uL Sodium 129 L (137-145) mmol/L Potassium 3.2 L (3.5-5.1) mmol/L Chloride 97 L (98-107) mmol/L BUN 4 L (9-20) mg/dL Creatinine 0.60 L (0.66-1.25) mg/dL POC Glucose (mg/dL) (75-99) mg/dL Osmolality (280-301) mosm/kg Calcium 7.2 L (8.4-10.2) mg/dL Microbiology - Last 24 Hours (Table) 04/18/19 18:55 Blood Culture - Preliminary Blood No Growth after 48 hours Assessment and Plan Plan: Assessment: 1 acute COPD exacerbation secondary to an acute influenza B URI /bronchitis 2 acute influenza B infection with typical viral manifestations of acute influenza illness. 3 fever secondary to above, improved 4 shortness of breath secondary to above, improving 5 biapical pulmonary scarring as seen on today's chest x-ray 6 glaucoma 7 new onset atrial fibrillation With RVR, converted back into normal sinus rhythm 8 lactic acidosis, improving 9 diarrhea secondary to C. diff and the patient is currently on oral vancomycin 10 upper GI bleeding suspected and there was a drop in hemoglobin from 11.5 down to 9.0. GI has been consulted. There has been a further drop in hemoglobin on today's labs on 04/21/2019 with a hemoglobin of 8.1 11 hyponatremia, improving Plan: Continue current treatment, continue Tamiflu, breathing treatments. Slightly more short of breath today possibly related to further drop in hemoglobin, but stable oxygenation, no significant wheezing or congestion. Hemodynamically remains stable, no nausea or vomiting, his diarrhea is improving. Remains on PPI therapy, and GI consultation is pending. I performed a history & physical examination of the patient and discussed their management with my nurse practitioner, Luana Arcos. I reviewed the nurse practitioner's note and agree with the documented findings and plan of care. Lung sounds are positive for scattered rhonchi. The findings and the impression was discussed with the patient. I attest to the documentation by the nurse practitioner. Time with Patient: Less than 30
[2019-04-21] MEDS: CHERRY FLAVOR 60 ML BOTTLE PO PRN ×2 (11:04→16:13)
--- NOTE | 2019-04-21 12:23 | P.PN ---
Subjective Progress Note Date: 04/21/19 Principal diagnosis: Patient is admitted for influenza. There is no clear evidence of pneumonia or COPD exacerbation because of which are both antibody consistent steroids are being disc any acute as patient has C. diff colitis. Patient also has possible upper GI bleed once is a C. diff is better and diarrhea improves patient will undergo upper GI endoscopy and a colonoscopy as well. Patient had about 5 bowel movements are dark stools with the drop in hemoglobin to 9. Today he had one loose stool. Constitutional: Denied any fatigue denied any fever. Cardio vascular: denied any chest pain, palpitations Gastrointestinal as mentioned in HPI Pulmonary: Denied any shortness of breath cough Neurologic denied any new focal deficits All inpatient medications were reviewed and appropriate changes in these medications as dictated in the interval history and assessment and plan. 04/21/2019 Patient is seen and evaluated today having improvement in diarrhea and states that it has gotten better since yesterday. Patient is maintained on oral vancomycin for positive C. diff colitis. Patient was scheduled to undergo upper GI endoscopy along with possible colonoscopy but is on hold at this time per GI until infection improves. Patient continues to have shortness of breath with exertion. No reports of chest pain or palpitations. Patient is afebrile. No reports of nausea or vomiting and patient is currently on clear liquids and tolerating. Patient is being treated with Tamiflu for influenza. Objective - Vital Signs Vital signs: Vital Signs Temp 98.1 F 04/21/19 11:15 Pulse 92 04/21/19 11:15 Resp 18 04/21/19 11:15 BP 116/60 04/21/19 11:15 Pulse Ox 97 04/21/19 11:15 Intake & Output 04/20/19 04/21/19 04/21/19 18:59 06:59 18:59 Intake Total 240 820 Output Total 700 Balance -460 820 Weight 88.7 kg Intake: Oral 240 820 Output: Urine 700 Other: Voiding Method Toilet Toilet - Exam GENERAL: The patient is alert and oriented x3, not in any acute distress. Well developed, well nourished. HEENT: Pupils are round and equally reacting to light. EOMI. No scleral icterus. No conjunctival pallor. Normocephalic, atraumatic. No pharyngeal erythema. No thyromegaly. CARDIOVASCULAR: S1 and S2 present. No murmurs, rubs, or gallops. PULMONARY:mildly decreased air entry into bilateral lung malagon with some scattered rhonchi noted ABDOMEN: Soft, nontender, nondistended, normoactive bowel sounds. No palpable organomegaly. MUSCULOSKELETAL: No joint swelling or deformity. EXTREMITIES: No cyanosis, clubbing, or pedal edema. NEUROLOGICAL: Gross neurological examination did not reveal any focal deficits. SKIN: No rashes. - Labs CBC & Chem 7: 04/21/19 05:41 04/21/19 05:41 Labs: Abnormal Lab Results - Last 24 Hours (Table) 04/20/19 04/20/19 04/20/19 Range/Units 14:50 16:47 20:16 RBC 2.46 L (4.30-5.90) m/uL Hgb 8.3 L (13.0-17.5) gm/dL Hct 24.7 L (39.0-53.0) % MCV 100.3 H (80.0-100.0) fL Plt Count 125 L (150-450) k/uL Neutrophils # 8.8 H (1.3-7.7) k/uL Lymphocytes # 0.7 L (1.0-4.8) k/uL Sodium (137-145) mmol/L Potassium (3.5-5.1) mmol/L Chloride (98-107) mmol/L BUN (9-20) mg/dL Creatinine (0.66-1.25) mg/dL POC Glucose (mg/dL) 193 H 171 H (75-99) mg/dL Calcium (8.4-10.2) mg/dL 04/20/19 04/21/19 04/21/19 Range/Units 21:02 05:41 05:41 RBC 2.44 L 2.41 L (4.30-5.90) m/uL Hgb 8.2 L 8.1 L (13.0-17.5) gm/dL Hct 24.4 L 23.9 L (39.0-53.0) % MCV 100.2 H (80.0-100.0) fL Plt Count 133 L 147 L (150-450) k/uL Neutrophils # (1.3-7.7) k/uL Lymphocytes # (1.0-4.8) k/uL Sodium 129 L (137-145) mmol/L Potassium 3.2 L (3.5-5.1) mmol/L Chloride 97 L (98-107) mmol/L BUN 4 L (9-20) mg/dL Creatinine 0.60 L (0.66-1.25) mg/dL POC Glucose (mg/dL) (75-99) mg/dL Calcium 7.2 L (8.4-10.2) mg/dL Microbiology - Last 24 Hours (Table) 04/18/19 18:55 Blood Culture - Preliminary Blood No Growth after 48 hours Assessment and Plan Assessment: -sepsis secondary to influenza probably the infiltrate in the lung that is because of influenza. patient has C. diff colitis and is currently maintained on oral vancomycin and will continue. -Atrial fibrillation proximal A. fib new onset rapid ventricular rate on admission presently resolved patient is sinus rhythm not on anti-coagulation because of the possibly of GI bleed and.stools. Patient is on beta génesis echocardiogram showed normal ejection fraction and does not require automatic coagulation. Cardiology is following, currently in sinus rhythm. May start anticoagulation once patient undergoes upper endoscopy with colonoscopy to monitor for bleeding. -C. diff colitis steroids and antibodies risk because of the above-mentioned reasons as patient doesn't have any significant COPD exacerbation or pneumonia. Was started on inhaled steroids, pulmonary is following. -Nicotine abuse not in acute exacerbation will not require any systemic steroids. -hyponatremia still believe it's stable with hyponatremia continue with IV fluids. Continue gentle IV hydration and clear liquids at this time. sodium is slightly improved at 129. We'll continue IV 0.9 at 100 mL per hour and closely monitor vital signs and labs. -possible upper GI bleed patient will be started on Protonix and will be monitored closely. For any evidence of GI bleed clinically.his hemoglobin is 8.2 with no active signs of bleeding. -DVT prophylaxis early ambulation
[2019-04-21] MEDS: methylPREDNISolone SOD SUCCI 40 MG/ML 1 ML VIAL IV SCH ×2 (16:13→23:01)
[2019-04-21 20:24] LABS: Glucose,Whole Blood 177 mg/dL (75-99)
[2019-04-21] MEDS: LATANOPROST 0.005% OPHTH DROPS 2.5 ML BTL LEFT EYE SCH (21:30)
[2019-04-22 06:11] LABS: Basophils % (A) 0 %; Eosinophils % (A) 0 %; Lymphocytes # (A) 0.7 k/uL (1.0-4.8); Lymphocytes % (A) 11 %; MCH 33.6 pg (25.0-35.0); MCHC 33.5 g/dL (31.0-37.0); MCV 100.3 fL (80.0-100.0); Mean Platelet Volume 8.6; Monocytes # (A) 0.3 k/uL (0-1.0); Monocytes % (A) 4 %; Neutrophils # (A) 5.3 k/uL (1.3-7.7); Neutrophils % (A) 83 %; Platelet Count 166 k/uL (150-450); RBC 2.39 m/uL (4.30-5.90); RDW 12.8 % (11.5-15.5); WBC 6.3 k/uL (3.8-10.6)
[2019-04-22] MEDS: VANCOMYCIN ORAL SOLUTION 250 MG/5 ML BOTTLE PO SCH ×3 (06:16→17:25)
[2019-04-22 06:25] LABS: Glucose,Whole Blood 160 mg/dL (75-99)
[2019-04-22 06:28] LABS: African American GFR (CKD) >90 (>60 ml/min/1.73 sqM); Anion Gap 5 mmol/L; Blood Urea Nitrogen 3 mg/dL (9-20); Calcium 7.1 mg/dL (8.4-10.2); Carbon Dioxide 28 mmol/L (22-30); Chloride 95 mmol/L (98-107); Glucose 152 mg/dL (74-99); Non-African American GFR(CKD) >90 (>60 ml/min/1.73 sqM); Potassium 3.5 mmol/L (3.5-5.1); Sodium 128 mmol/L (137-145)
[2019-04-22] MEDS: INSULIN ASPART (NovoLOG) 100 UNIT/ML VIAL SQ SCH ×2 (06:41→13:22)
--- NOTE | 2019-04-22 06:49 | P.PN ---
Subjective Progress Note Date: 04/21/19 Principal diagnosis: Diarrhea, Clostridium difficile colitis, anemia Patient is seen lying in bed today denying any abdominal pain. Bowel movements have decreased in frequency with only a few soft bowel movements this morning. Tolerating advancement in his diet. Objective - Vital Signs Vital signs: Vital Signs Temp 98.1 F 04/21/19 11:15 Pulse 82 04/21/19 12:38 Resp 18 04/21/19 12:00 BP 116/60 04/21/19 11:15 Pulse Ox 97 04/21/19 11:15 Intake & Output 04/20/19 04/21/19 04/21/19 18:59 06:59 18:59 Intake Total 240 820 Output Total 700 Balance -460 820 Weight 88.7 kg Intake: Oral 240 820 Output: Urine 700 Other: Voiding Method Toilet Toilet - Exam On physical examination, patient appears comfortable in no apparent distress. HEAD: Normocephalic, atraumatic. EYES: No scleral icterus. No conjunctival injection. MOUTH: No lesions, tongue midline. NECK: Trachea midline, no gross abnormalities. ABDOMEN: Soft, nontender. Bowel sounds are positive. No organomegaly. No guarding or rigidity. EXTREMITIES: No pedal edema. SKIN: No rashes, no jaundice. NEUROLOGIC: Alert and oriented x3. No focal deficits. - Labs CBC & Chem 7: 04/22/19 05:44 04/22/19 05:44 Labs: Abnormal Lab Results - Last 24 Hours (Table) 04/20/19 04/20/19 04/20/19 Range/Units 14:50 16:47 20:16 RBC 2.46 L (4.30-5.90) m/uL Hgb 8.3 L (13.0-17.5) gm/dL Hct 24.7 L (39.0-53.0) % MCV 100.3 H (80.0-100.0) fL Plt Count 125 L (150-450) k/uL Neutrophils # 8.8 H (1.3-7.7) k/uL Lymphocytes # 0.7 L (1.0-4.8) k/uL Sodium (137-145) mmol/L Potassium (3.5-5.1) mmol/L Chloride (98-107) mmol/L BUN (9-20) mg/dL Creatinine (0.66-1.25) mg/dL POC Glucose (mg/dL) 193 H 171 H (75-99) mg/dL Calcium (8.4-10.2) mg/dL 04/20/19 04/21/19 04/21/19 Range/Units 21:02 05:41 05:41 RBC 2.44 L 2.41 L (4.30-5.90) m/uL Hgb 8.2 L 8.1 L (13.0-17.5) gm/dL Hct 24.4 L 23.9 L (39.0-53.0) % MCV 100.2 H (80.0-100.0) fL Plt Count 133 L 147 L (150-450) k/uL Neutrophils # (1.3-7.7) k/uL Lymphocytes # (1.0-4.8) k/uL Sodium 129 L (137-145) mmol/L Potassium 3.2 L (3.5-5.1) mmol/L Chloride 97 L (98-107) mmol/L BUN 4 L (9-20) mg/dL Creatinine 0.60 L (0.66-1.25) mg/dL POC Glucose (mg/dL) (75-99) mg/dL Calcium 7.2 L (8.4-10.2) mg/dL Microbiology - Last 24 Hours (Table) 04/18/19 18:55 Blood Culture - Preliminary Blood No Growth after 48 hours Assessment and Plan (1) Clostridium difficile diarrhea Narrative/Plan: 64-year-old male presenting with 4 days of diarrhea found to have positive testing for Clostridium difficile and currently being treated for Clostridium difficile colitis. Overall patient's bowel movements have improved. Current Visit: Yes Status: Acute Code(s): A04.72 - ENTEROCOLITIS D/T CLOSTRIDIUM DIFFICILE, NOT SPCF RECUR SNOMED Code(s): 6889673331629 (2) Acute diarrhea Current Visit: No Status: Acute Code(s): R19.7 - DIARRHEA, UNSPECIFIED SNOMED Code(s): 752936927 Plan: Supportive care Patient tolerated the liquid diet, advance to low fiber low residual Continue Protonix daily Continue monitor CBC and transfuse as needed Continue antibiotic treatment of Clostridium difficile colitis Continue to monitor stool output Need for endoscopy to be determined depending on patient's clinical course and labs Thank you for allowing us to participate in the care of the patient
[2019-04-22] MEDS: IPRATROPIUM-ALBUTEROL 3 ML NEB INHALATION SCH ×4 (07:36→20:06)
[2019-04-22] MEDS: BUDESONIDE 0.5 MG/2 ML NEBU INHALATION SCH ×2 (07:36→20:06)
[2019-04-22] MEDS: PANTOPRAZOLE 40 MG/10 ML VIAL IVP SCH (09:41)
[2019-04-22] MEDS: methylPREDNISolone SOD SUCCI 40 MG/ML 1 ML VIAL IV SCH (09:42)
[2019-04-22] MEDS: METOPROLOL TARTRATE 25 MG TAB PO SCH ×2 (09:42→22:15)
[2019-04-22] MEDS: OSELTAMIVIR 75 MG CAP PO SCH ×2 (09:42→22:15)
--- NOTE | 2019-04-22 10:08 | P.PN ---
Subjective Progress Note Date: 04/22/19 On O2 2019 patient seen in follow-up on selective care unit, he is awake and alert, in no acute distress, he states his breathing is still dyspneic. He is currently on room air, and his pulse ox is 96%, lung sounds reveal some scattered rhonchi and bilateral bases, patient has a productive cough, is on Tamiflu for influenza B infection, and remains on oral vancomycin for C. diff infection, he states his diarrhea is improving. No new chest x-rays today. Today's labs have been reviewed, showing white blood cell count of 9.5, hemoglobin continues to trend down, and is down to 8.1, platelet count was 147, serum sodium is 129, potassium is 3.2, chloride is 97, CO2 is 27, B1 of 4 creatinine 0.60. GI evaluation is pending in regards to down trending hemoglobin, suspected upper GI blood loss anemia On today's evaluation on 04/22/2019 patient is breathing easier, hardly any wheezing, but still some scattered rhonchi at bilateral lung bases and patient is able to effectively cough and bring up some secretions, room air pulse ox is 95%, patient is afebrile, hemodynamically patient is stable, his diarrhea has subsided, today's labs have been reviewed showing white blood cell, 6.3, hemoglobin of 8.0, sodium is 128, potassium 3.5, chloride is 95, BUN 3 and creatinine 0.53 Objective - Vital Signs Vital signs: Vital Signs Temp 97.9 F 04/22/19 08:00 Pulse 77 04/22/19 08:00 Resp 18 04/22/19 08:00 BP 116/66 04/22/19 08:00 Pulse Ox 95 04/22/19 08:00 Intake & Output 04/21/19 04/22/19 04/22/19 18:59 06:59 18:59 Intake Total 820 480 Output Total 800 1800 Balance 20 -1800 480 Weight 88.5 kg Intake: Oral 820 480 Output: Urine 800 1800 Other: Voiding Method Toilet # Bowel Movements 1 - Exam GENERAL EXAM: Alert, very pleasant, 64-year-old white male, on room air pulse ox of 96% comfortable in no apparent distress. HEAD: Normocephalic/atraumatic. EYES: Normal reaction of pupils, equal size. Conjunctiva pink, sclera white. NOSE: Clear with pink turbinates. THROAT: No erythema or exudates. NECK: No masses, no JVD, no thyroid enlargement, no adenopathy. CHEST: No chest wall deformity. Symmetrical expansion. LUNGS: Equal air entry with few scattered rhonchi, but no wheeze, dullness. CVS: Regular rate and rhythm, normal S1 and S2, no gallops, no murmurs, no rubs ABDOMEN: Soft, nontender. No hepatosplenomegaly, normal bowel sounds, no guarding or rigidity. EXTREMITIES: No clubbing, no edema, no cyanosis, 2+ pulses and upper and lower extremities. MUSCULOSKELETAL: Muscle strength and tone normal. SPINE: No scoliosis or deformity SKIN: No rashes CENTRAL NERVOUS SYSTEM: Alert and oriented -3. No focal deficits, tone is normal in all 4 extremities. PSYCHIATRIC: Alert and oriented -3. Appropriate affect. Intact judgment and insight. - Labs CBC & Chem 7: 04/22/19 05:44 04/22/19 05:44 Labs: Abnormal Lab Results - Last 24 Hours (Table) 04/21/19 04/22/19 04/22/19 Range/Units 20:22 05:44 05:44 RBC 2.39 L (4.30-5.90) m/uL Hgb 8.0 L (13.0-17.5) gm/dL Hct 24.0 L (39.0-53.0) % MCV 100.3 H (80.0-100.0) fL Lymphocytes # 0.7 L (1.0-4.8) k/uL Sodium 128 L (137-145) mmol/L Chloride 95 L (98-107) mmol/L BUN 3 L (9-20) mg/dL Creatinine 0.53 L (0.66-1.25) mg/dL Glucose 152 H (74-99) mg/dL POC Glucose (mg/dL) 177 H (75-99) mg/dL Calcium 7.1 L (8.4-10.2) mg/dL 04/22/19 Range/Units 06:24 RBC (4.30-5.90) m/uL Hgb (13.0-17.5) gm/dL Hct (39.0-53.0) % MCV (80.0-100.0) fL Lymphocytes # (1.0-4.8) k/uL Sodium (137-145) mmol/L Chloride (98-107) mmol/L BUN (9-20) mg/dL Creatinine (0.66-1.25) mg/dL Glucose (74-99) mg/dL POC Glucose (mg/dL) 160 H (75-99) mg/dL Calcium (8.4-10.2) mg/dL Microbiology - Last 24 Hours (Table) 04/18/19 18:55 Blood Culture - Preliminary Blood No Growth after 72 hours Assessment and Plan Plan: Assessment: 1 acute COPD exacerbation secondary to an acute influenza B URI /bronchitis 2 acute influenza B infection with typical viral manifestations of acute influen za illness. 3 fever secondary to above, improved 4 shortness of breath secondary to above, improving 5 biapical pulmonary scarring as seen on today's chest x-ray 6 glaucoma 7 new onset atrial fibrillation With RVR, converted back into normal sinus rhythm 8 lactic acidosis, improving 9 diarrhea secondary to C. diff and the patient is currently on oral vancomycin 10 upper GI bleeding suspected and there was a drop in hemoglobin from 11.5 down to 9.0. GI has been consulted. There has been a further drop in hemoglobin on today's labs on 04/21/2019 with a hemoglobin of 8.1 11 hyponatremia, improving Plan: Continue nebulized bronchodilators, continue IV steroids, patient is breathing easier, he is on room air, maintaining stable oxygenation, and increase activity as tolerated, patient is finishing his course of Tamiflu, continues on PPI therapy, diarrhea his improved. From pulmonary perspective patient could be considered for discharge home I performed a history & physical examination of the patient and discussed their management with my nurse practitioner, Luana Arcos. I reviewed the nurse practitioner's note and agree with the documented findings and plan of care. Lung sounds are positive for scattered rhonchi. The findings and the impression was discussed with the patient. I attest to the documentation by the nurse practitioner. Time with Patient: Less than 30
--- NOTE | 2019-04-22 10:34 | CDI ---
Documentation Clarification Form Date: 04/22/2019 10:12:03 AM From: Kristin Tejada CCS, CCDS Admit Date: 04/18/2019 08:19:00 PM Patient Name: Eric Curran Visit Number: [id number] Discharge Date: ATTENTION: The Clinical Documentation Specialists (CDI) and [facility] Coding Staff appreciate your assistance in clarifying documentation. Please respond to the clarification below the line at the bottom and electronically sign. The CDI & [facility] Coding staff will review the response and follow-up if needed. Please note: Queries are made part of the Legal Health Record. If you have any questions, please contact the author of this message via ITS. Dr. Steve Elmore: A diagnosis of anemia lacks specificity to accurately reflect your patients severity of condition and clarification is needed. Per the GI Progress Note 04/21: "Diarrhea, Clostridium difficile colitis, anemia." Per the Pulmonary Progress note 04/21: "GI evaluation is pending in regards to down trending hemoglobin, suspected upper GI blood loss anemia." History/Risk Factors: Former smoker. Clinical indicators: Presented with URI signs & symptoms including cough, fever, chills, body aches & mild dyspnea. In ED 04/19, found to have atrial fibrillation with RVR, dark stools, hyponatremic & Influenza positive, started on IV fluids & IV antibiotics. C Diff positive on 04/19. Hemoglobin: 04/18: 11.5*; 04/19: 11.3*; 04/19: 9.2*; 04/20: 8.7; 04/20: 9.0*; 04/20 8.2; 04/21: 8.1*; 04/22: 8.0* Hematocrit: 04/18: 32.6*, 04/19: 33.4*; 04/19: 26.9*; 04/20: 25.2*; 04/20: 26.5*; 04/20 24.7*; 04/20: 24.4*, 04/21: 23.9*; 04/22: 24.0* Treatment 04/18: IV fluid bolus 500 mls @ 999, po KDur, IV Kcl 100 mls @ 100; po Tamiflu. 04/19: IV fluid bolus. 04/21: IV fluid 1,000 mls @ 100 In order to capture the severity of condition, please clarify the type of anemia and etiology if known: Acute blood loss anemia Acute on chronic blood loss anemia Chronic blood loss anemia, please specify cause if known: Nutritional anemia Unable to determine Other, please specify (Last Revision: November 2016) _ UNABLE TO DETERMINE MTDD
[2019-04-22] MEDS: SODIUM CHLORIDE 0.9% 1,000 ML IV SCH ×2 (11:54→22:51)
[2019-04-22 12:12] LABS: Glucose,Whole Blood 158 mg/dL (75-99)
--- NOTE | 2019-04-22 12:52 | P.PN ---
Subjective Progress Note Date: 04/22/19 Principal diagnosis: Patient is admitted for influenza. There is no clear evidence of pneumonia or COPD exacerbation because of which are both antibody consistent steroids are being disc any acute as patient has C. diff colitis. Patient also has possible upper GI bleed once is a C. diff is better and diarrhea improves patient will undergo upper GI endoscopy and a colonoscopy as well. Patient had about 5 bowel movements are dark stools with the drop in hemoglobin to 9. Today he had one loose stool. Constitutional: Denied any fatigue denied any fever. Cardio vascular: denied any chest pain, palpitations Gastrointestinal as mentioned in HPI Pulmonary: Denied any shortness of breath cough Neurologic denied any new focal deficits All inpatient medications were reviewed and appropriate changes in these medications as dictated in the interval history and assessment and plan. 04/21/2019 Patient is seen and evaluated today having improvement in diarrhea and states that it has gotten better since yesterday. Patient is maintained on oral vancomycin for positive C. diff colitis. Patient was scheduled to undergo upper GI endoscopy along with possible colonoscopy but is on hold at this time per GI until infection improves. Patient continues to have shortness of breath with exertion. No reports of chest pain or palpitations. Patient is afebrile. No reports of nausea or vomiting and patient is currently on clear liquids and tolerating. Patient is being treated with Tamiflu for influenza. 04/22/2019 Patient is seen in follow-up today and states that the diarrhea has subsided and has not had a bowel movement today. Patient currently remains on oral vanco mycin for positive C. diff and will continue. Patient was being followed by GI with possibility of endoscopy along with colonoscopy but will most likely be seen in the outpatient setting. Hemoglobin is stable at 8.0 today with no reports of active bleeding noted. Sodium remains low at 128 and patient is maintained on IV normal saline at 100 mL per hour. Will repeat a.m. labs. Patient is breathing somewhat easier and less dyspneic on exertion. No reports of chest pain or palpitations. Patient has remained afebrile. No nausea or vomiting and patient is tolerating a low fiber diet. Objective - Vital Signs Vital signs: Vital Signs Temp 98 F 04/22/19 11:46 Pulse 68 04/22/19 12:16 Resp 18 04/22/19 11:46 BP 123/63 04/22/19 11:46 Pulse Ox 96 04/22/19 11:46 Intake & Output 04/21/19 04/22/19 04/22/19 18:59 06:59 18:59 Intake Total 820 480 Output Total 800 1800 Balance 20 -1800 480 Weight 88.5 kg Intake: Oral 820 480 Output: Urine 800 1800 Other: Voiding Method Toilet # Bowel Movements 1 - Exam GENERAL: The patient is alert and oriented x3, not in any acute distress sitting up on the side of the bed. Well developed, well nourished. HEENT: Pupils are round and equally reacting to light. EOMI. No scleral icterus. No conjunctival pallor. Normocephalic, atraumatic. No pharyngeal erythema. No thyromegaly. CARDIOVASCULAR: S1 and S2 present. No murmurs, rubs, or gallops. PULMONARY:mildly decreased air entry into bilateral lung malagon with some scattered rhonchi noted, no wheezing noted ABDOMEN: Soft, nontender, nondistended, normoactive bowel sounds. No palpable organomegaly. MUSCULOSKELETAL: No joint swelling or deformity. EXTREMITIES: No cyanosis, clubbing, or pedal edema. NEUROLOGICAL: Gross neurological examination did not reveal any focal deficits. SKIN: No rashes. - Labs CBC & Chem 7: 04/22/19 05:44 04/22/19 05:44 Labs: Abnormal Lab Results - Last 24 Hours (Table) 04/21/19 04/22/19 04/22/19 Range/Units 20:22 05:44 05:44 RBC 2.39 L (4.30-5.90) m/uL Hgb 8.0 L (13.0-17.5) gm/dL Hct 24.0 L (39.0-53.0) % MCV 100.3 H (80.0-100.0) fL Lymphocytes # 0.7 L (1.0-4.8) k/uL Sodium 128 L (137-145) mmol/L Chloride 95 L (98-107) mmol/L BUN 3 L (9-20) mg/dL Creatinine 0.53 L (0.66-1.25) mg/dL Glucose 152 H (74-99) mg/dL POC Glucose (mg/dL) 177 H (75-99) mg/dL Calcium 7.1 L (8.4-10.2) mg/dL 04/22/19 04/22/19 Range/Units 06:24 12:10 RBC (4.30-5.90) m/uL Hgb (13.0-17.5) gm/dL Hct (39.0-53.0) % MCV (80.0-100.0) fL Lymphocytes # (1.0-4.8) k/uL Sodium (137-145) mmol/L Chloride (98-107) mmol/L BUN (9-20) mg/dL Creatinine (0.66-1.25) mg/dL Glucose (74-99) mg/dL POC Glucose (mg/dL) 160 H 158 H (75-99) mg/dL Calcium (8.4-10.2) mg/dL Microbiology - Last 24 Hours (Table) 04/18/19 18:55 Blood Culture - Preliminary Blood No Growth after 72 hours Assessment and Plan Assessment: -sepsis secondary to influenza probably the infiltrate in the lung is possibly because of influenza. patient has C. diff colitis and is currently maintained on oral vancomycin and will continue. -Atrial fibrillation proximal A. fib new onset rapid ventricular rate on admission presently resolved patient is sinus rhythm not on anti-coagulation because of the possibly of GI bleed and.stools. Patient is on beta génesis echocardiogram showed normal ejection fraction and does not require automatic coagulation. Cardiology is following, currently in sinus rhythm. May possibly start anticoagulation of atrial fibrillation remains present. -C. diff colitis steroids and antibodies risk because of the above-mentioned reasons as patient doesn't have any significant COPD exacerbation or pneumonia. Was started on inhaled steroids, pulmonary is following. -Nicotine abuse not in acute exacerbation will not require any systemic steroids. -Hypokalemia, improved. Repeat potassium today is 3.5 -hyponatremia still believe it's stable with hyponatremia continue with IV fluids. Continue gentle IV hydration and low fiber diet at this time. sodium is at 128. We'll continue IV 0.9 at 100 mL per hour and closely monitor vital signs and labs. -possible upper GI bleed patient will be started on Protonix and will be monitored closely. For any evidence of GI bleed clinically.his hemoglobin is 8.0 with no active signs of bleeding. GI following and may continue with endoscope along with colonoscopy in the outpatient setting once C. difficile colitis has resolved. -DVT prophylaxis early ambulation
[2019-04-22] MEDS: PANTOPRAZOLE 40 MG TABLET PO SCH (16:54)
[2019-04-22] MEDS: LATANOPROST 0.005% OPHTH DROPS 2.5 ML BTL LEFT EYE SCH (22:15)
--- NOTE | 2019-04-22 22:59 | P.PN ---
Subjective Progress Note Date: 04/22/19 Principal diagnosis: Diarrhea, Clostridium difficile colitis Patient is seen lying in bed today denying any abdominal pain. No bowel movements today, he is tolerating and advance diet. Objective - Vital Signs Vital signs: Vital Signs Temp 98 F 04/22/19 11:46 Pulse 68 04/22/19 12:16 Resp 18 04/22/19 11:46 BP 123/63 04/22/19 11:46 Pulse Ox 96 04/22/19 11:46 Intake & Output 04/21/19 04/22/19 04/22/19 18:59 06:59 18:59 Intake Total 820 702 Output Total 800 1800 Balance 20 -1800 702 Weight 88.5 kg Intake: Oral 820 702 Output: Urine 800 1800 Other: Voiding Method Toilet # Bowel Movements 1 - Exam On physical examination, patient appears comfortable in no apparent distress. HEAD: Normocephalic, atraumatic. EYES: No scleral icterus. No conjunctival injection. MOUTH: No lesions, tongue midline. NECK: Trachea midline, no gross abnormalities. ABDOMEN: Soft, nontender. Bowel sounds are positive. No organomegaly. No guarding or rigidity. EXTREMITIES: No pedal edema. SKIN: No rashes, no jaundice. NEUROLOGIC: Alert and oriented x3. No focal deficits. - Labs CBC & Chem 7: 04/22/19 05:44 04/22/19 05:44 Labs: Abnormal Lab Results - Last 24 Hours (Table) 04/21/19 04/22/19 04/22/19 Range/Units 20:22 05:44 05:44 RBC 2.39 L (4.30-5.90) m/uL Hgb 8.0 L (13.0-17.5) gm/dL Hct 24.0 L (39.0-53.0) % MCV 100.3 H (80.0-100.0) fL Lymphocytes # 0.7 L (1.0-4.8) k/uL Sodium 128 L (137-145) mmol/L Chloride 95 L (98-107) mmol/L BUN 3 L (9-20) mg/dL Creatinine 0.53 L (0.66-1.25) mg/dL Glucose 152 H (74-99) mg/dL POC Glucose (mg/dL) 177 H (75-99) mg/dL Calcium 7.1 L (8.4-10.2) mg/dL 04/22/19 04/22/19 Range/Units 06:24 12:10 RBC (4.30-5.90) m/uL Hgb (13.0-17.5) gm/dL Hct (39.0-53.0) % MCV (80.0-100.0) fL Lymphocytes # (1.0-4.8) k/uL Sodium (137-145) mmol/L Chloride (98-107) mmol/L BUN (9-20) mg/dL Creatinine (0.66-1.25) mg/dL Glucose (74-99) mg/dL POC Glucose (mg/dL) 160 H 158 H (75-99) mg/dL Calcium (8.4-10.2) mg/dL Microbiology - Last 24 Hours (Table) 04/18/19 18:55 Blood Culture - Preliminary Blood No Growth after 72 hours Assessment and Plan (1) Clostridium difficile diarrhea Narrative/Plan: 64-year-old male presenting with 4 days of diarrhea found to have positive testing for Clostridium difficile and currently being treated for Clostridium d ifficile colitis. Overall patient's bowel movements have improved. Current Visit: Yes Status: Acute Code(s): A04.72 - ENTEROCOLITIS D/T CLOSTRIDIUM DIFFICILE, NOT SPCF RECUR SNOMED Code(s): 5361072162503 (2) Acute diarrhea Current Visit: No Status: Acute Code(s): R19.7 - DIARRHEA, UNSPECIFIED SNOMED Code(s): 959254761 Plan: Supportive care Low fiber low residual Continue Protonix daily Continue monitor CBC and transfuse as needed Continue antibiotic treatment of Clostridium difficile colitis Continue to monitor stool output Okay for discharge from gastroenterology with follow-up in the outpatient setting for scheduling of endoscopy Thank you for allowing us to participate in the care of the patient
[2019-04-23] MEDS: VANCOMYCIN ORAL SOLUTION 250 MG/5 ML BOTTLE PO SCH ×5 (00:34→23:41)
[2019-04-23] MEDS: SODIUM CHLORIDE 0.9% 1,000 ML IV SCH ×2 (04:51→14:14)
--- NOTE | 2019-04-23 08:24 | P.PN ---
Subjective Progress Note Date: 04/23/19 On O2 2019 patient seen in follow-up on selective care unit, he is awake and alert, in no acute distress, he states his breathing is still dyspneic. He is currently on room air, and his pulse ox is 96%, lung sounds reveal some scattered rhonchi and bilateral bases, patient has a productive cough, is on Tamiflu for influenza B infection, and remains on oral vancomycin for C. diff infection, he states his diarrhea is improving. No new chest x-rays today. Today's labs have been reviewed, showing white blood cell count of 9.5, hemoglobin continues to trend down, and is down to 8.1, platelet count was 147, serum sodium is 129, potassium is 3.2, chloride is 97, CO2 is 27, B1 of 4 creatinine 0.60. GI evaluation is pending in regards to down trending hemoglobin, suspected upper GI blood loss anemia On today's evaluation on 04/22/2019 patient is breathing easier, hardly any wheezing, but still some scattered rhonchi at bilateral lung bases and patient is able to effectively cough and bring up some secretions, room air pulse ox is 95%, patient is afebrile, hemodynamically patient is stable, his diarrhea has subsided, today's labs have been reviewed showing white blood cell, 6.3, hemoglobin of 8.0, sodium is 128, potassium 3.5, chloride is 95, BUN 3 and creatinine 0.53 On 04/23/2019 patient seen in follow-up on general medical floor. He states he thinks his diarrhea has increased, yesterday he went 4 times with liquid diarrhea, this morning he had already had 5 episodes of diarrhea which is watery, he states it is not dark or black and no visible blood in it. Breathing is stable, although patient does have some exertional dyspnea, room air pulse ox is 83-96%, hemodynamically patient is stable, afebrile, he remains on oral vancomycin and Tamiflu for influenza infection. Lung sounds reveal a few scattered rhonchi at the bases, no significant wheezing. His IV fluids infusing at a rate of 100 ML per hour, his morning blood work is pending. Objective - Vital Signs Vital signs: Vital Signs Temp 97.1 F L 04/23/19 07:25 Pulse 72 04/23/19 07:25 Resp 16 04/23/19 07:25 BP 121/74 04/23/19 07:25 Pulse Ox 96 04/23/19 07:25 Intake & Output 04/22/19 04/23/19 04/23/19 18:59 06:59 18:59 Intake Total 702 Balance 702 Intake: Oral 702 Other: Voiding Method Toilet Toilet # Voids 1 # Bowel Movements 1 - Exam GENERAL EXAM: Alert, very pleasant, 64-year-old white male, on room air pulse ox of 96% comfortable in no apparent distress. HEAD: Normocephalic/atraumatic. EYES: Normal reaction of pupils, equal size. Conjunctiva pink, sclera white. NOSE: Clear with pink turbinates. THROAT: No erythema or exudates. NECK: No masses, no JVD, no thyroid enlargement, no adenopathy. CHEST: No chest wall deformity. Symmetrical expansion. LUNGS: Equal air entry with few scattered rhonchi, but no wheeze, dullness. CVS: Regular rate and rhythm, normal S1 and S2, no gallops, no murmurs, no rubs ABDOMEN: Soft, nontender. No hepatosplenomegaly, normal bowel sounds, no guarding or rigidity. EXTREMITIES: No clubbing, no edema, no cyanosis, 2+ pulses and upper and lower extremities. MUSCULOSKELETAL: Muscle strength and tone normal. SPINE: No scoliosis or deformity SKIN: No rashes CENTRAL NERVOUS SYSTEM: Alert and oriented -3. No focal deficits, tone is normal in all 4 extremities. PSYCHIATRIC: Alert and oriented -3. Appropriate affect. Intact judgment and insight. - Labs CBC & Chem 7: 04/22/19 05:44 04/22/19 05:44 Labs: Abnormal Lab Results - Last 24 Hours (Table) 04/22/19 Range/Units 12:10 POC Glucose (mg/dL) 158 H (75-99) mg/dL Microbiology - Last 24 Hours (Table) 04/18/19 18:55 Blood Culture - Preliminary Blood No Growth after 96 hours Assessment and Plan Plan: Assessment: 1 acute COPD exacerbation secondary to an acute influenza B URI /bronchitis 2 acute influenza B infection with typical viral manifestations of acute influe nza illness. 3 fever secondary to above, improved 4 shortness of breath secondary to above, improving 5 biapical pulmonary scarring as seen on today's chest x-ray 6 glaucoma 7 new onset atrial fibrillation With RVR, converted back into normal sinus rhythm 8 lactic acidosis, improving 9 diarrhea secondary to C. diff and the patient is currently on oral vancomycin 10 upper GI bleeding suspected and there was a drop in hemoglobin from 11.5 down to 9.0. GI has been consulted. There has been a further drop in hemoglobin on today's labs on 04/21/2019 with a hemoglobin of 8.1 11 hyponatremia, improving Plan: From pulmonary perspective patient is stable, continues to improve, he is on room air, lung sounds reveal a few scattered rhonchi, presented activity as tolerated. From pulmonary perspective he can consider for discharge home, however patient states he is having increased diarrhea this morning and some right-sided abdominal pain, this morning's blood work is pending, he remains on IV hydration, he remains on oral vancomycin and Tamiflu. GI service is following in regards to the C. diff colitis and possibility of GI blood loss anemia. Hyponatremia management per attending physician, pulmonary service will sign off and follow on as-needed basis I performed a history & physical examination of the patient and discussed their management with my nurse practitioner, Luana Arcos. I reviewed the nurse practitioner's note and agree with the documented findings and plan of care. Lung sounds are positive for scattered rhonchi. The findings and the impression was discussed with the patient. I attest to the documentation by the nurse practitioner. Time with Patient: Less than 30
[2019-04-23 08:40] LABS: African American GFR (CKD) >90 (>60 ml/min/1.73 sqM); Anion Gap 7 mmol/L; Blood Urea Nitrogen 4 mg/dL (9-20); Calcium 7.5 mg/dL (8.4-10.2); Carbon Dioxide 26 mmol/L (22-30); Chloride 96 mmol/L (98-107); Glucose 85 mg/dL (74-99); Non-African American GFR(CKD) >90 (>60 ml/min/1.73 sqM); Potassium 3.1 mmol/L (3.5-5.1); Sodium 129 mmol/L (137-145)
[2019-04-23] MEDS: BUDESONIDE 0.5 MG/2 ML NEBU INHALATION SCH ×2 (08:42→20:46)
[2019-04-23] MEDS: IPRATROPIUM-ALBUTEROL 3 ML NEB INHALATION SCH ×4 (08:42→20:46)
[2019-04-23] MEDS: OSELTAMIVIR 75 MG CAP PO SCH ×2 (09:01→22:07)
[2019-04-23] MEDS: METOPROLOL TARTRATE 25 MG TAB PO SCH ×2 (09:01→21:47)
[2019-04-23] MEDS: PANTOPRAZOLE 40 MG TABLET PO SCH ×2 (09:01→17:41)
[2019-04-23] MEDS ORDERED: POTASSIUM CHLORIDE ER 20 MEQ TAB.ER PO STA (09:13)
[2019-04-23 09:42] LABS: Basophils # (A) 0.1 k/uL (0-0.2); Basophils % (A) 1 %; Eosinophils # (A) 0.1 k/uL (0-0.7); Eosinophils % (A) 1 %; HCT 26.5 % (39.0-53.0); HGB 8.8 gm/dL (13.0-17.5); Lymphocytes # (A) 2.6 k/uL (1.0-4.8); Lymphocytes % (A) 23 %; MCH 34.1 pg (25.0-35.0); MCHC 33.3 g/dL (31.0-37.0); MCV 102.6 fL (80.0-100.0); Macrocytosis Slight; Mean Platelet Volume 8.5; Monocytes # (A) 0.9 k/uL (0-1.0); Monocytes % (A) 8 %; Neutrophils # (A) 7.5 k/uL (1.3-7.7); Neutrophils % (A) 65 %; Platelet Count 244 k/uL (150-450); RBC 2.58 m/uL (4.30-5.90); WBC 11.4 k/uL (3.8-10.6)
[2019-04-23] MEDS: CHOLESTYRAMINE (WITH SUGAR) 4 GM PACKET PO SCH ×2 (13:24→17:41)
--- NOTE | 2019-04-23 14:14 | P.PN ---
Subjective Progress Note Date: 04/23/19 Principal diagnosis: Patient is admitted for influenza. There is no clear evidence of pneumonia or COPD exacerbation because of which are both antibody consistent steroids are being disc any acute as patient has C. diff colitis. Patient also has possible upper GI bleed once is a C. diff is better and diarrhea improves patient will undergo upper GI endoscopy and a colonoscopy as well. Patient had about 5 bowel movements are dark stools with the drop in hemoglobin to 9. Today he had one loose stool. Constitutional: Denied any fatigue denied any fever. Cardio vascular: denied any chest pain, palpitations Gastrointestinal as mentioned in HPI Pulmonary: Denied any shortness of breath cough Neurologic denied any new focal deficits All inpatient medications were reviewed and appropriate changes in these medications as dictated in the interval history and assessment and plan. 04/21/2019 Patient is seen and evaluated today having improvement in diarrhea and states that it has gotten better since yesterday. Patient is maintained on oral vancomycin for positive C. diff colitis. Patient was scheduled to undergo upper GI endoscopy along with possible colonoscopy but is on hold at this time per GI until infection improves. Patient continues to have shortness of breath with exertion. No reports of chest pain or palpitations. Patient is afebrile. No reports of nausea or vomiting and patient is currently on clear liquids and tolerating. Patient is being treated with Tamiflu for influenza. 04/22/2019 Patient is seen in follow-up today and states that the diarrhea has subsided and has not had a bowel movement today. Patient currently remains on oral vanco mycin for positive C. diff and will continue. Patient was being followed by GI with possibility of endoscopy along with colonoscopy but will most likely be seen in the outpatient setting. Hemoglobin is stable at 8.0 today with no reports of active bleeding noted. Sodium remains low at 128 and patient is maintained on IV normal saline at 100 mL per hour. Will repeat a.m. labs. Patient is breathing somewhat easier and less dyspneic on exertion. No reports of chest pain or palpitations. Patient has remained afebrile. No nausea or vomiting and patient is tolerating a low fiber diet. 04/23/2019 Patient is seen and evaluated in follow-up today stating he is having abdominal pain and increasing diarrhea throughout the night into today and is had over 10 episodes of diarrhea noted. Patient denies any blood noted from the stool. Patient remains on oral vancomycin for positive C. diff and will continue. Patient hemoglobin is 8.8 today. Sodium slightly improved at 129 although potassium was only 3.1 and currently being replaced. Will repeat a.m. labs. Patient is to continue on IV normal saline at 100 mL per hour and discussed with the patient about increasing oral intake and increasing activity as tolerated. Patient continues to have somewhat shortness of breath with exertion but states it is gotten better. No reports of chest pain or palpitations. Patient is afebrile. Patient is tolerating diet with no reports of nausea or vomiting. Objective - Vital Signs Vital signs: Vital Signs Temp 97.1 F L 04/23/19 07:25 Pulse 99 04/23/19 12:24 Resp 16 04/23/19 07:25 BP 121/74 04/23/19 07:25 Pulse Ox 95 04/23/19 08:42 Intake & Output 04/22/19 04/23/19 04/23/19 18:59 06:59 18:59 Intake Total 702 200 Balance 702 200 Intake: Oral 702 200 Other: Voiding Method Toilet Toilet Toilet # Voids 1 # Bowel Movements 1 - Exam GENERAL: The patient is alert and oriented x3, not in any acute distress lying in bed. Well developed, well nourished. HEENT: Pupils are round and equally reacting to light. EOMI. No scleral icterus. No conjunctival pallor. Normocephalic, atraumatic. No pharyngeal erythema. No thyromegaly. CARDIOVASCULAR: S1 and S2 present. No murmurs, rubs, or gallops. PULMONARY:mildly decreased air entry into bilateral lung malagon with some scattered rhonchi noted at the bases, no wheezing noted ABDOMEN: Soft, nontender, nondistended, normoactive bowel sounds. No palpable organomegaly. MUSCULOSKELETAL: No joint swelling or deformity. EXTREMITIES: No cyanosis, clubbing, or pedal edema. NEUROLOGICAL: Gross neurological examination did not reveal any focal deficits. SKIN: No rashes. - Labs CBC & Chem 7: 04/23/19 07:22 04/23/19 07:22 Labs: Abnormal Lab Results - Last 24 Hours (Table) 04/23/19 04/23/19 Range/Units 07: 07:22 WBC 11.4 H (3.8-10.6) k/uL RBC 2.58 L (4.30-5.90) m/uL Hgb 8.8 L (13.0-17.5) gm/dL Hct 26.5 L (39.0-53.0) % MCV 102.6 H (80.0-100.0) fL Sodium 129 L (137-145) mmol/L Potassium 3.1 L (3.5-5.1) mmol/L Chloride 96 L (98-107) mmol/L BUN 4 L (9-20) mg/dL Creatinine 0.58 L (0.66-1.25) mg/dL Calcium 7.5 L (8.4-10.2) mg/dL Microbiology - Last 24 Hours (Table) 04/18/19 18:55 Blood Culture - Preliminary Blood No Growth after 96 hours Assessment and Plan Assessment: -sepsis secondary to influenza probably the infiltrate in the lung is possibly because of influenza. Patient currently receiving Tamiflu with 1 dose left -Atrial fibrillation proximal A. fib new onset rapid ventricular rate on admission presently resolved patient is sinus rhythm not on anti-coagulation because of the possibly of GI bleed and.stools. Patient is on beta génesis echocardiogram showed normal ejection fraction and does not require automatic coagulation. Cardiology is following as needed, currently in sinus rhythm. May possibly start anticoagulation of atrial fibrillation remains present. -C. diff colitis and remains on oral vancomycin. -Acute COPD exacerbation secondary to influenza. Patient remains on breathing treatments and did have IV steroids. Improved -Nicotine abuse: Counseling provided for smoking cessation -Hypokalemia, being replaced currently as the potassium dropped back down to 3.1 today. Will repeat a.m. labs -hyponatremia still believe it's stable with hyponatremia continue with IV fluids. Continue gentle IV hydration and low fiber diet at this time. sodium is at 129. We'll continue IV 0.9 at 100 mL per hour and closely monitor vital signs and labs. -possible upper GI bleed patient will be started on Protonix and will be monitored closely. For any evidence of GI bleed clinically.his hemoglobin is 8.8 with no active signs of bleeding. GI following and may continue with endoscope along with colonoscopy in the outpatient setting once C. difficile colitis has resolved. -DVT prophylaxis early ambulation
[2019-04-23] MEDS: LATANOPROST 0.005% OPHTH DROPS 2.5 ML BTL LEFT EYE SCH (21:48)
[2019-04-23] MEDS: CHERRY FLAVOR 60 ML BOTTLE PO PRN (23:41)
[2019-04-24] MEDS: SODIUM CHLORIDE 0.9% 1,000 ML IV SCH ×2 (02:16→12:30)
[2019-04-24] MEDS: VANCOMYCIN ORAL SOLUTION 250 MG/5 ML BOTTLE PO SCH ×2 (06:15→12:38)
[2019-04-24] MEDS: CHERRY FLAVOR 60 ML BOTTLE PO PRN (06:15)
--- NOTE | 2019-04-24 06:48 | P.PN ---
Subjective Progress Note Date: 04/23/19 Principal diagnosis: Diarrhea, Clostridium difficile colitis Patient is seen lying in bed today denying any abdominal pain. No bowel movements yesterday but the patient has reports 3-4 loose bowel movements this morning. He has tolerated his diet. Objective - Vital Signs Vital signs: Vital Signs Temp 97.1 F L 04/23/19 07:25 Pulse 99 04/23/19 12:24 Resp 16 04/23/19 07:25 BP 121/74 04/23/19 07:25 Pulse Ox 95 04/23/19 08:42 Intake & Output 04/22/19 04/23/19 04/23/19 18:59 06:59 18:59 Intake Total 702 200 Balance 702 200 Intake: Oral 702 200 Other: Voiding Method Toilet Toilet Toilet # Voids 1 # Bowel Movements 1 - Exam On physical examination, patient appears comfortable in no apparent distress. HEAD: Normocephalic, atraumatic. EYES: No scleral icterus. No conjunctival injection. MOUTH: No lesions, tongue midline. NECK: Trachea midline, no gross abnormalities. ABDOMEN: Soft, nontender. Bowel sounds are positive. No organomegaly. No guarding or rigidity. EXTREMITIES: No pedal edema. SKIN: No rashes, no jaundice. NEUROLOGIC: Alert and oriented x3. No focal deficits. - Labs CBC & Chem 7: 04/23/19 07:22 04/23/19 07:22 Labs: Abnormal Lab Results - Last 24 Hours (Table) 04/23/19 04/23/19 Range/Units 07:22 07:22 WBC 11.4 H (3.8-10.6) k/uL RBC 2.58 L (4.30-5.90) m/uL Hgb 8.8 L (13.0-17.5) gm/dL Hct 26.5 L (39.0-53.0) % MCV 102.6 H (80.0-100.0) fL Sodium 129 L (137-145) mmol/L Potassium 3.1 L (3.5-5.1) mmol/L Chloride 96 L (98-107) mmol/L BUN 4 L (9-20) mg/dL Creatinine 0.58 L (0.66-1.25) mg/dL Calcium 7.5 L (8.4-10.2) mg/dL Microbiology - Last 24 Hours (Table) 04/18/19 18:55 Blood Culture - Preliminary Blood No Growth after 96 hours Assessment and Plan (1) Clostridium difficile diarrhea Narrative/Plan: 64-year-old male presenting with 4 days of diarrhea found to have positive testing for Clostridium difficile and currently being treated for Clostridium difficile colitis. Overall patient's bowel movements have improved. Current Visit: Yes Status: Acute Code(s): A04.72 - ENTEROCOLITIS D/T CLOSTRIDIUM DIFFICILE, NOT SPCF RECUR SNOMED Code(s): 0452717377118 (2) Acute diarrhea Current Visit: No Status: Acute Code(s): R19.7 - DIARRHEA, UNSPECIFIED SNOMED Code(s): 533396761 Plan: Supportive care Low fiber low residual, recommend avoiding lactose in the next 2 weeks Continue Protonix daily Continue monitor CBC and transfuse as needed Continue antibiotic treatment of Clostridium difficile colitis Continue to monitor stool output Cholestyramine twice a day added Okay for discharge from gastroenterology with follow-up in the outpatient setting for scheduling of endoscopy Thank you for allowing us to participate in the care of the patient
[2019-04-24 07:24] LABS: Basophils % (A) 0 %; Eosinophils # (A) 0.2 k/uL (0-0.7); Eosinophils % (A) 2 %; HCT 27.5 % (39.0-53.0); HGB 8.9 gm/dL (13.0-17.5); Lymphocytes % (A) 17 %; MCH 32.8 pg (25.0-35.0); MCHC 32.5 g/dL (31.0-37.0); MCV 100.9 fL (80.0-100.0); Mean Platelet Volume 7.5; Monocytes # (A) 0.8 k/uL (0-1.0); Monocytes % (A) 7 %; Neutrophils # (A) 8.6 k/uL (1.3-7.7); Neutrophils % (A) 73 %; Platelet Count 390 k/uL (150-450); RBC 2.73 m/uL (4.30-5.90); RDW 13.1 % (11.5-15.5); WBC 11.8 k/uL (3.8-10.6)
[2019-04-24 07:38] LABS: African American GFR (CKD) >90 (>60 ml/min/1.73 sqM); Anion Gap 5 mmol/L; Blood Urea Nitrogen 3 mg/dL (9-20); Calcium 7.2 mg/dL (8.4-10.2); Carbon Dioxide 30 mmol/L (22-30); Chloride 94 mmol/L (98-107); Glucose 107 mg/dL (74-99); Non-African American GFR(CKD) >90 (>60 ml/min/1.73 sqM); Potassium 3.5 mmol/L (3.5-5.1); Sodium 129 mmol/L (137-145)
[2019-04-24] MEDS: IPRATROPIUM-ALBUTEROL 3 ML NEB INHALATION SCH ×2 (08:12→11:45)
[2019-04-24] MEDS: BUDESONIDE 0.5 MG/2 ML NEBU INHALATION SCH (08:12)
[2019-04-24 08:38] VITALS: BP 135/69; RESP 16; TEMP 98.2
[2019-04-24] MEDS: CHOLESTYRAMINE (WITH SUGAR) 4 GM PACKET PO SCH (08:51)
[2019-04-24] MEDS: METOPROLOL TARTRATE 25 MG TAB PO SCH (08:51)
[2019-04-24] MEDS: PANTOPRAZOLE 40 MG TABLET PO SCH (08:51)
[2019-04-24 11:57] VITALS: PULSE 80
[2019-04-24] MEDS ORDERED: LACTOBACILLUS ACIDOPH & BULGAR 1 EACH PACKET PO SCH (12:00)
--- NOTE | 2019-04-24 15:27 | P.DS ---
Providers Date of admission: 04/18/19 20:19 Expected date of discharge: 04/24/19 Attending physician: Kiirll Cooley Consults: 04/18/19 20:19 Consult Physician Routine Consulting Provider: Jacques Mitchell Consult Reason/Comments: COPD, pneumonia Do you want consulting provider notified?: Yes Consult Physician Routine Consulting Provider: Zhen Holly Consult Reason/Comments: New-onset atrial fibrillation with RVR Do you want consulting provider notified?: Yes Primary care physician: Bia Finnncdotty [facility] Course: Final diagnosis -sepsis secondary to influenza probably the infiltrate in the lung is possibly because of influenza -Atrial fibrillation proximal A. fib new onset rapid ventricular rate on admission -C. diff colitis -Acute COPD exacerbation secondary to influenza -Nicotine abuse: Counseling provided for smoking cessation -Hypokalemia -hyponatremia -possible upper GI bleed -DVT prophylaxis Discharge disposition Patient is being discharged in a stable condition with guarded prognosis to home and will follow-up with Dr. Lau in the outpatient setting upon discharge. Patient will also need to follow-up with nephrology and GI in the outpatient setting. Patient will continue with oral vancomycin for the next 5 days for C. diff colitis to complete the course. Patient was also given inhalers and instructed to follow-up with primary care provider for COPD management. Total time taken is 35 minutes. History of present illness This is a 64-year-old male who was recently admitted for influenza infection along with COPD acute exacerbation and was being closely monitored. Tamiflu was completed during hospitalization Patient had multiple bouts of diarrhea and was tested positive for C. diff colitis. Patient had a drop in hemoglobin and was seen by GI for possible GI bleed although no active bleeding noted. Hemoglobin is stable at 8.8 today. Patient will follow-up with GI in the outpatient setting for possible colonoscopy and EGD once C. diff has resolved. Patient also continue to have low sodium and is currently 129. Patient instructed to follow-up with nephrology in the outpatient setting upon discharge. Patient will continue on oral vancomycin along with bronchodilators in the outpatient setting. Patient continues to have some mild diarrhea although has subsided slightly. Patient was given Questran. Currently no reports of chest pain, shortness of breath, or palpitations. Patient is afebrile. No reports of nausea or vomiting. Patient encouraged to increase oral intake. On exam vital signs are stable. Temp is 98.2F, pulse is 77, respirations are 16, blood pressure 135/69, oxygen saturation is 97% on room air. Cardio S1, S2 are present. Respiratory is clear to auscultation. Abdomen is soft and nonte nder. Nervous system shows no focal deficits. Please refer to medication reconciliation sheet for a list of medications. Patient Condition at Discharge: Stable Plan - Discharge Summary New Discharge Prescriptions: New Metoprolol Tartrate [Lopressor] 25 mg PO BID 30 Days #60 tab Pantoprazole [Protonix] 40 mg PO AC-BID 30 Days #60 tablet. Cholestyramine (with Sugar) [Questran Packet] 4 gm PO BID@1000,1800 #20 packet Tiotropium 18 Mcg/Puff [Spiriva] 1 puff INHALATION DAILY 30 Days #1 device Budesonide/Formoterol Fumarate [Symbicort 160-4.5 Mcg Inhaler] 1 puff IH BID 30 Days #1 hfa.aer.ad Vancomycin Oral Solution 250 mg PO Q6HR 5 Days #100 ml Albuterol Inhaler [Ventolin Hfa Inhaler] 1 - 2 puff INHALATION RT-Q6H PRN 30 Days #1 inhaler PRN Reason: Shortness Of Breath Continue Latanoprost [Xalatan 0.005%] 1 drop LEFT EYE DAILY Discharge Medication List Latanoprost [Xalatan 0.005%] 1 drop LEFT EYE DAILY 10/31/17 [History] Albuterol Inhaler [Ventolin Hfa Inhaler] 1 - 2 puff INHALATION RT-Q6H PRN 30 Days #1 inhaler 04/24/19 [Rx] Budesonide/Formoterol Fumarate [Symbicort 160-4.5 Mcg Inhaler] 1 puff IH BID 30 Days #1 hfa.aer.ad 04/24/19 [Rx] Cholestyramine (with Sugar) [Questran Packet] 4 gm PO BID@1000,1800 #20 packet 04/24/19 [Rx] Metoprolol Tartrate [Lopressor] 25 mg PO BID 30 Days #60 tab 04/24/19 [Rx] Pantoprazole [Protonix] 40 mg PO AC-BID 30 Days #60 tablet. 04/24/19 [Rx] Tiotropium 18 Mcg/Puff [Spiriva] 1 puff INHALATION DAILY 30 Days #1 device 04/24/19 [Rx] Vancomycin Oral Solution 250 mg PO Q6HR 5 Days #100 ml 04/24/19 [Rx] Follow up Appointment(s)/Referral(s): Radha Lau FNPB [REFERRING] - 04/30/19 11:00 am (With Dr Amezquita If the appointment doesnt work please call office) Rolo Merida DO [STAFF PHYSICIAN] - 2 Weeks (office not answering ) Steve Elmore MD [STAFF PHYSICIAN] - 05/16/19 9:30 am (Bring Insurance card and Picture ID. Arrive at 915 With Yolanda Juárez) Ambulatory/Diagnostic Orders: Basic Metabolic Panel [LAB.AMB] Time Frame: 2 Days, Location: None Selected Complete Blood Count w/diff [LAB.AMB] Time Frame: 2 Days, Location: None Selected Activity/Diet/Wound Care/Special Instructions: Activity Limited until follow-up Follow-up with primary care provider upon discharge Follow-up with nephrology and GI in the outpatient setting Repeat labs in 2-3 days Continue with antibiotics until finished Continue current diet Encouraged oral intake Discharge Disposition: HOME SELF-CARE
--- NOTE | 2019-04-25 14:23 | CDI ---
Documentation Clarification Form Date: 04/25/19 From: Morena Blanchard CCS Phone: If you have a question about this query, please contact Cee Arechiga, Band Aid Machine Operator at [phone] between 8am and 5pm. Admit Date: 04/18/19 Discharge Date: 04/24/19 Patient Name: Eric Curran Visit Number: [id number] ATTENTION: The Clinical Documentation Specialists (CDI) and [facility] Coding Staff appreciate your assistance in clarifying documentation. Please respond to the clarification below the line at the bottom and electronically sign. The CDI & [facility] Coding staff will review the response and follow-up if needed. Please note: Queries are made part of the Legal Health Record. If you have any questions, please contact the author of this message via ITS. Dear Dr. Lemus, Pneumonia was documented in H&P, PNs, ED. History/Risk Factors: Influenza B, COPD w/ Exac, Sepsis Clinical Indicators: Wheezing WBC/Left shift: 12.0, 11.0, 11.9 X-ray: Infiltrate anterior segment left lower lobe is new compared to old exam Vital signs: Temp 100.7, BP 157/69, RR 18, [place] 81, O2 Sat 96 Antibiotics: IV Zithromax 500 mg, IV Rocephin 1 gm, IVPB Q 24 HR O2: Nasal cannula 2 lpm Breathing Tx: Hand nebulizer In order to capture the severity of condition, please clarify if the condition signifies and you are treating for: Bacterial Pneumonia, specify causal organism (if known) Gram Negative Pneumonia Due to Strep Pneumonia due to influenza Pneumonia ruled out Other bacteria (please specify) Other, please specify Unable to determine Pneumonia due to influenza MTDD
== END 2019-04-24 14:26 | disposition home or self-care (01) | DRG 871 ==
LOC: EC 18:26 → 3SCARD 20:19 → 4SSUR 04-22 16:34
PROVIDERS: ADMIT Hospitalist; ATTEND Hospitalist
DX: A41.89 Other specified sepsis (principal); J10.00 Influenza due to other identified influenza virus with unspecified type of pneumonia; J18.9 Pneumonia, unspecified organism; A04.72 Enterocolitis due to Clostridium difficile, not specified as recurrent; R64 Cachexia; E87.2 Acidosis; J44.1 Chronic obstructive pulmonary disease with (acute) exacerbation; J44.0 Chronic obstructive pulmonary disease with (acute) lower respiratory infection; E87.1 Hypo-osmolality and hyponatremia; K92.2 Gastrointestinal hemorrhage, unspecified; H40.9 Unspecified glaucoma; D50.0 Iron deficiency anemia secondary to blood loss (chronic); E87.6 Hypokalemia; I48.0 Paroxysmal atrial fibrillation; Z79.899 Other long term (current) drug therapy; Z87.891 Personal history of nicotine dependence; Z96.612 Presence of left artificial shoulder joint; Z88.6 Allergy status to analgesic agent
CPT/HCPCS: 36415; 71046; 80048; 80053; 82272; 82570; 83605; 83735; 83880; 83930; 83935; 84300; 84439; 84443; 84484; 85025; 85027; 85610; 85730; 87040; 87324; 87502; 93005; 93306; 94640; 94760; 96365; 96366; 96368; 96375; 96376; 99291

== ENCOUNTER 2019-08-22 14:35 | Inpatient (IN) | payer MEDICARE, OTHER ==
[2019-08-22] MEDS ORDERED: methylPREDNISolone SOD SUCCI 125 MG/2 ML VIAL IV STA (15:05)
[2019-08-22] MEDS ORDERED: IPRATROPIUM-ALBUTEROL 3 ML NEB INHALATION STA (15:05)
--- NOTE | 2019-08-22 15:09 | ED ---
General Adult HPI - General Chief complaint: Shortness of Breath Stated complaint: Diff Breathing Time Seen by Provider: 08/22/19 14:45 Source: patient, RN notes reviewed Mode of arrival: ambulatory Limitations: no limitations - History of Present Illness Initial comments: Patient is a pleasant 64-year-old male presenting to the emergency department with difficulty in breathing. Symptoms have progressed over the past few days. Occasional dry cough. No fever. Symptoms are similar to previous COPD. No leg pain or leg swelling. No chest pain. - Related Data Home Medications Medication Instructions Recorded Confirmed Latanoprost [Xalatan 0.005%] 1 drop LEFT EYE DAILY 10/31/17 04/18/19 Previous Rx's Medication Instructions Recorded Albuterol Inhaler (Mhu) [Ventolin 1 - 2 puff INHALATION RT-Q6H PRN 04/24/19 Hfa Inhaler (Mhu)] 30 Days #1 inhaler Budesonide/Formoterol Fumarate 1 puff IH BID 30 Days #1 hfa.aer.ad 04/24/19 [Symbicort 160-4.5 Mcg Inhaler] Cholestyramine (with Sugar) 4 gm PO BID@1000,1800 #20 packet 04/24/19 [Questran Packet] Metoprolol Tartrate [Lopressor] 25 mg PO BID 30 Days #60 tab 04/24/19 Pantoprazole [Protonix] 40 mg PO AC-BID 30 Days #60 04/24/19 tablet. Tiotropium 18 Mcg/Puff [Spiriva] 1 puff INHALATION DAILY 30 Days #1 04/24/19 device Vancomycin Oral Solution 250 mg PO Q6HR 5 Days #100 ml 04/24/19 Allergies Allergy/AdvReac Type Severity Reaction Status Date / Time aspirin Allergy Rash/Hives Verified 08/22/19 14:43 Review of Systems ROS Statement: Those systems with pertinent positive or pertinent negative responses have been documented in the HPI. ROS Other: All systems not noted in ROS Statement are negative. Constitutional: Denies: fever Eyes: Denies: eye pain ENT: Denies: ear pain Respiratory: Reports: cough, dyspnea Cardiovascular: Denies: chest pain Endocrine: Reports: fatigue Gastrointestinal: Denies: abdominal pain Genitourinary: Denies: dysuria Musculoskeletal: Denies: back pain Skin: Denies: rash Neurological: Denies: weakness Past Medical History Past Medical History: No Reported History, COPD Additional Past Medical History / Comment(s): glaucoma History of Any Multi-Drug Resistant Organisms: None Reported Past Surgical History: Joint Replacement Additional Past Surgical History / Comment(s): LT SHOULDER sx in 2010 Past Psychological History: No Psychological Hx Reported Smoking Status: Former smoker Past Alcohol Use History: Occasional Past Drug Use History: None Reported - Past Family History Daughter(s) Family Medical History: No Reported History General Exam Limitations: no limitations General appearance: alert, in no apparent distress Head exam: Present: normocephalic Eye exam: Present: normal appearance ENT exam: Present: normal oropharynx Neck exam: Present: normal inspection Respiratory exam: Present: wheezes, decreased breath sounds Cardiovascular Exam: Present: regular rate, normal rhythm GI/Abdominal exam: Present: soft. Absent: tenderness Extremities exam: Present: normal inspection. Absent: pedal edema, calf tend erness Neurological exam: Present: alert Psychiatric exam: Present: normal affect, normal mood Skin exam: Present: normal color Course Vital Signs 08/22/19 08/22/19 08/22/19 14:41 14:56 15:22 Temperature 98.1 F Pulse Rate 100 96 Respiratory 24 22 Rate Blood Pressure 147/80 O2 Sat by Pulse 96 Oximetry 08/22/19 15:31 Temperature Pulse Rate 85 Respiratory Rate Blood Pressure O2 Sat by Pulse Oximetry EKG Findings - EKG Comments: EKG Findings:: Normal sinus rhythm 84 with sinus arrhythmia. [place] 132. QRS 82. QT 432. QTC 510. Normal axis. Normal QRS. No acute ST change. Medical Decision Making - Medical Decision Making Patient reevaluated and resting comfortably in bed. Lung sounds unchanged. Case discussed with Dr. sauer, who will admit covering for Dr. Urbina. - Lab Data Result diagrams: 08/22/19 15:07 08/22/19 15:07 Lab Results 08/22/19 08/22/19 Range/Units 15:07 15:07 WBC 7.9 (3.8-10.6) k/uL RBC 4.79 (4.30-5.90) m/uL Hgb 15.4 (13.0-17.5) gm/dL Hct 47.0 (39.0-53.0) % MCV 98.3 (80.0-100.0) fL MCH 32.2 (25.0-35.0) pg MCHC 32.8 (31.0-37.0) g/dL RDW 13.3 (11.5-15.5) % Plt Count 204 (150-450) k/uL Neutrophils % 55 % Lymphocytes % 21 % Monocytes % 5 % Eosinophils % 15 % Basophils % 1 % Neutrophils # 4.4 (1.3-7.7) k/uL Lymphocytes # 1.7 (1.0-4.8) k/uL Monocytes # 0.4 (0-1.0) k/uL Eosinophils # 1.2 H (0-0.7) k/uL Basophils # 0.1 (0-0.2) k/uL Sodium 134 L (137-145) mmol/L Potassium 3.6 (3.5-5.1) mmol/L Chloride 96 L (98-107) mmol/L Carbon Dioxide 28 (22-30) mmol/L Anion Gap 10 mmol/L BUN 4 L (9-20) mg/dL Creatinine 0.49 L (0.66-1.25) mg/dL Est GFR (CKD-EPI)AfAm >90 (>60 ml/min/1.73 sqM) Est GFR (CKD-EPI)NonAf >90 (>60 ml/min/1.73 sqM) Glucose 106 H (74-99) mg/dL Calcium 8.8 (8.4-10.2) mg/dL Total Bilirubin 0.4 (0.2-1.3) mg/dL AST 26 (17-59) U/L ALT 16 (4-49) U/L Alkaline Phosphatase 83 (38-126) U/L Total Protein 7.1 (6.3-8.2) g/dL Albumin 4.4 (3.5-5.0) g/dL - Radiology Data Radiology results: image reviewed (Chest x-ray shows COPD. Stable biapical pleural thickening.) Disposition Clinical Impression: Acute exacerbation of chronic obstructive pulmonary disease Disposition: ADMITTED IP TO THIS HOSP Is patient prescribed a controlled substance at d/c from ED?: No Referrals: Bia Anderson MD [Primary Care Provider] - 1-2 days Decision Time: 16:10
[2019-08-22 15:25] LABS: Basophils # (A) 0.1 k/uL (0-0.2); Basophils % (A) 1 %; Eosinophils # (A) 1.2 k/uL (0-0.7); Eosinophils % (A) 15 %; HGB 15.4 gm/dL (13.0-17.5); Lymphocytes # (A) 1.7 k/uL (1.0-4.8); Lymphocytes % (A) 21 %; MCH 32.2 pg (25.0-35.0); MCHC 32.8 g/dL (31.0-37.0); MCV 98.3 fL (80.0-100.0); Mean Platelet Volume 7.4; Monocytes # (A) 0.4 k/uL (0-1.0); Monocytes % (A) 5 %; Neutrophils # (A) 4.4 k/uL (1.3-7.7); Neutrophils % (A) 55 %; Platelet Count 204 k/uL (150-450); RBC 4.79 m/uL (4.30-5.90); RDW 13.3 % (11.5-15.5); WBC 7.9 k/uL (3.8-10.6)
[2019-08-22 15:33] LABS: ALT 16 U/L (4-49); AST 26 U/L (17-59); African American GFR (CKD) >90 (>60 ml/min/1.73 sqM); Albumin 4.4 g/dL (3.5-5.0); Alkaline Phosphatase 83 U/L (38-126); Anion Gap 10 mmol/L; Blood Urea Nitrogen 4 mg/dL (9-20); Calcium 8.8 mg/dL (8.4-10.2); Carbon Dioxide 28 mmol/L (22-30); Chloride 96 mmol/L (98-107); Glucose 106 mg/dL (74-99); Non-African American GFR(CKD) >90 (>60 ml/min/1.73 sqM); Potassium 3.6 mmol/L (3.5-5.1); Sodium 134 mmol/L (137-145); Total Bilirubin 0.4 mg/dL (0.2-1.3); Total Protein 7.1 g/dL (6.3-8.2)
--- NOTE | 2019-08-22 15:55 | XR ---
EXAMINATION TYPE: XR chest 2V DATE OF EXAM: 08/22/2019 COMPARISON: 04/18/2019 TECHNIQUE: PA and lateral views submitted. HISTORY: Shortness of breath cough and congestion FINDINGS: Biapical pleural thickening and vague densities are stable. Hyperinflation. No overt failure. No pleu ral effusion. Heart size stable. Diffuse osteopenia. Suggestion of previous surgery involving the lef t shoulder and bilateral shoulder arthropathy. IMPRESSION: 1. COPD with stable biapical pleural thickening. Vague density seen involving the apices are similar to the prior exam and could be chronic. Correlate with CT scan as clinically warranted.
--- NOTE | 2019-08-22 16:06 | P.HPIM ---
History of Present Illness This is a pleasant 64 years old male with past medical history of COPD, and glaucoma. He follows up with Dr. Noa Lau of [facility]. He does not see a computer network support specialist. He was diagnosed with COPD about 3 months ago when he was in the hospital he did used to smoke and quit 2 years ago. He used to smoke half pack per day for 55 years. He denies alcohol or illicit tracts. This time he presents with worsening dyspnea for about 2 days, not relieved by his inhaler. He has some cough but no phlegm. He has mild central chest pain that is worse with coughing. He uses only inhaler at home, besides, eyedrops and some vitamins for his macular degeneration Vitas looks stable. Labs show an unremarkable CBC, BMP and liver enzymes. Chest x-ray showing COPD with biapical pleural thickening EKG: Normal sinus rhythm with no significant ST-T changes. QTC is 510 Review of Systems CONSTITUTIONAL: No fever, no malaise, no fatigue. HEENT: No recent visual problems or hearing problems. Denied any sore throat. CARDIOVASCULAR: No orthopnea, PND, no palpitations, no syncope. PULMONARY: no hemoptysis. GASTROINTESTINAL: No diarrhea, no nausea, no vomiting, no abdominal pain. Normoactive bowel sounds. NEUROLOGICAL: No headaches, no weakness, no numbness. HEMATOLOGICAL: Denies any bleeding or petechiae. GENITOURINARY: Denies any burning micturition, frequency, or urgency. MUSCULOSKELETAL/RHEUMATOLOGICAL: Denies any joint pain, swelling, or any muscle pain. ENDOCRINE: Denies any polyuria or polydipsia. Past Medical History Past Medical History: No Reported History, COPD Additional Past Medical History / Comment(s): glaucoma History of Any Multi-Drug Resistant Organisms: None Reported Past Surgical History: Joint Replacement Additional Past Surgical History / Comment(s): LT SHOULDER sx in 2009 Past Psychological History: No Psychological Hx Reported Smoking Status: Former smoker Past Alcohol Use History: Occasional Past Drug Use History: None Reported - Past Family History Daughter(s) Family Medical History: No Reported History Medications and Allergies Home Medications Medication Instructions Recorded Confirmed Type Latanoprost [Xalatan 0.005%] 1 drop LEFT EYE DAILY 10/31/17 04/18/19 History Albuterol Inhaler (Mhu) [Ventolin 1 - 2 puff INHALATION RT-Q6H PRN 04/24/19 Rx Hfa Inhaler (Mhu)] 30 Days #1 inhaler Budesonide/Formoterol Fumarate 1 puff IH BID 30 Days #1 hfa.aer.ad 04/24/19 Rx [Symbicort 160-4.5 Mcg Inhaler] Cholestyramine (with Sugar) 4 gm PO BID@1000,1800 #20 packet 04/24/19 Rx [Questran Packet] Metoprolol Tartrate [Lopressor] 25 mg PO BID 30 Days #60 tab 04/24/19 Rx Pantoprazole [Protonix] 40 mg PO AC-BID 30 Days #60 04/24/19 Rx tablet.dr Tiotropium 18 Mcg/Puff [Spiriva] 1 puff INHALATION DAILY 30 Days #1 04/24/19 Rx device Vancomycin Oral Solution 250 mg PO Q6HR 5 Days #100 ml 04/24/19 Rx Allergies Allergy/AdvReac Type Severity Reaction Status Date / Time aspirin Allergy Rash/Hives Verified 08/22/19 14:43 Physical Exam Vitals: Vital Signs Temp Pulse Resp BP Pulse Ox 08/22/19 15:31 85 08/22/19 15:22 96 08/22/19 14:56 22 08/22/19 14:41 98.1 F 100 24 147/80 96 Intake and Output 08/22/19 08/22/19 08/22/19 06:59 14:59 22:59 Other: Weight 83.915 kg GENERAL: The patient is alert and oriented x3, not in any acute distress. Well developed, well nourished. HEENT: Pupils are round and equally reacting to light. EOMI. No scleral icterus. No conjunctival pallor. Normocephalic, atraumatic. No pharyngeal erythema. No thyromegaly. CARDIOVASCULAR: S1 and S2 present. No murmurs, rubs, or gallops. -PULMONARY: Chest is clear to auscultation, bilateral expiratory wheezing with prolonged expiration ABDOMEN: Soft, nontender, nondistended, normoactive bowel sounds. No palpable organomegaly. MUSCULOSKELETAL: No joint swelling or deformity. EXTREMITIES: No cyanosis, clubbing, or pedal edema. NEUROLOGICAL: Gross neurological examination did not reveal any focal deficits. SKIN: No rashes. No petechiae Results CBC & Chem 7: 08/22/19 15:07 08/22/19 15:07 Labs: Abnormal Lab Results - Last 24 Hours (Table) 08/22/19 08/22/19 Range/Units 15:07 15:07 Eosinophils # 1.2 H (0-0.7) k/uL Sodium 134 L (137-145) mmol/L Chloride 96 L (98-107) mmol/L BUN 4 L (9-20) mg/dL Creatinine 0.49 L (0.66-1.25) mg/dL Glucose 106 H (74-99) mg/dL Assessment and Plan Assessment: Acute COPD exacerbation Bilateral apical pleural thickening glaucoma Macular degeneration Plan: This is a pleasant 64 years old male who presents with COPD exacerbation and has bilateral apical pleural thickening. Continue with steroids, bronchodilators and oxygen as needed. Consult pulmonary Labs and medication were reviewed.. Continue same treatment. Continue with symptomatic treatment. Resume home medication. Monitor lytes and vitals. DVT and GI prophylaxis. Further recommendations of the clinical course of the patient DVT prophylaxis: Subcutaneous heparin GI Prophylaxis: Pepcid
[2019-08-22] MEDS ORDERED: SYMBICORT 160-4.5 MCG INHALER INHALATION STA (16:17)
[2019-08-22] MEDS ORDERED: methylPREDNISolone SOD SUCCI 125 MG/2 ML VIAL IV SCH (18:00)
[2019-08-22] MEDS: IPRATROPIUM-ALBUTEROL 3 ML NEB INHALATION SCH (19:04)
[2019-08-22] MEDS: FAMOTIDINE 20 MG/2 ML VIAL IV SCH (21:01)
[2019-08-22] MEDS: methylPREDNISolone SOD SUCCI 125 MG/2 ML VIAL IV SCH (21:01)
[2019-08-22] MEDS: HEPARIN SODIUM,PORCINE 5,000 UNIT/ML 1 ML VIAL SQ SCH (21:01)
[2019-08-23] MEDS: methylPREDNISolone SOD SUCCI 125 MG/2 ML VIAL IV SCH ×3 (06:16→18:16)
[2019-08-23 06:23] LABS: Glucose,Whole Blood 145 mg/dL (75-99)
[2019-08-23 06:34] LABS: African American GFR (CKD) >90 (>60 ml/min/1.73 sqM); Anion Gap 8 mmol/L; Blood Urea Nitrogen 9 mg/dL (9-20); Calcium 8.5 mg/dL (8.4-10.2); Carbon Dioxide 26 mmol/L (22-30); Chloride 98 mmol/L (98-107); Glucose 146 mg/dL (74-99); Non-African American GFR(CKD) >90 (>60 ml/min/1.73 sqM); Sodium 132 mmol/L (137-145)
[2019-08-23] MEDS: IPRATROPIUM-ALBUTEROL 3 ML NEB INHALATION SCH ×4 (07:23→19:21)
[2019-08-23] MEDS: HEPARIN SODIUM,PORCINE 5,000 UNIT/ML 1 ML VIAL SQ SCH ×2 (09:00→21:39)
[2019-08-23] MEDS: INSULIN ASPART (NovoLOG) 100 UNIT/ML VIAL SQ SCH ×4 (09:00→20:15)
[2019-08-23] MEDS: FAMOTIDINE 20 MG/2 ML VIAL IV SCH ×2 (09:00→21:39)
[2019-08-23 12:02] LABS: Glucose,Whole Blood 115 mg/dL (75-99)
--- NOTE | 2019-08-23 12:13 | P.CNPUL ---
History of Present Illness Consult date: 08/23/19 Reason for consult: COPD History of present illness: A 64-year-old male patient who got hospitalized because of worsening shortness of breath. The patient has COPD and his developing these count congestion chest tightness and wheezing and for that reason he end up coming into the hospital. Chest x-ray was consistent with COPD with some by apical pleural thickening. EKG was a normal sinus rhythm without any acute ischemic changes. Note that the patient is known to me. I took care of him in the hospital few months back when he was admitted for an acute COPD exacerbation secondary to the influenza B respiratory infection. The patient recovered from that. However, he was not given a maintenance respiratory medications and he did not have any follow-up with me in the office. As such I'm not sure of his baseline lung capacity or FEV1. The patient is an ex-smoker. No exposed to any respiratory intensive chemical. No hemoptysis. No pleurisy. No other new complaints for now. Clinically improved compared to yesterday. He is on a combination bronchodilators and IV Solu-Medrol. Review of Systems Constitutional: Reports fatigue, Reports fever, Reports weakness Eyes: denies as per HPI, denies blurred vision, denies bulging eye, denies decreased vision, denies diplopia, denies discharge, denies dry eye, denies irritation, denies itching, denies pain, denies photophobia, denies loss of peripheral vision, denies loss of vision, denies tunnel vision/blind spots Ears: deny: decreased hearing, ear discharge, earache, tinnitus Ears, nose, mouth and throat: Denies headache, Denies sore throat Cardiovascular: Reports decreased exercise tolerance, Reports dyspnea on exertion Respiratory: Reports cough, Reports dyspnea, Reports wheezing Gastrointestinal: Reports as per HPI Genitourinary: Reports as per HPI Musculoskeletal: Reports as per HPI (Diffuse body aches), Reports muscle weakness Musculoskeletal: absent: ankle pain, ankle stiffness, ankle swelling Integumentary: Reports as per HPI Neurological: Reports as per HPI, Reports weakness Psychiatric: Reports as per HPI Endocrine: Reports as per HPI, Reports fatigue Hematologic/Lymphatic: Reports as per HPI Allergic/Immunologic: Reports as per HPI Past Medical History Past Medical History: No Reported History, COPD Additional Past Medical History / Comment(s): glaucoma History of Any Multi-Drug Resistant Organisms: None Reported Past Surgical History: Joint Replacement Additional Past Surgical History / Comment(s): LT SHOULDER sx in 2010 Past Psychological History: No Psychological Hx Reported Smoking Status: Former smoker Past Alcohol Use History: Occasional Additional Past Alcohol Use History / Comment(s): patient says he smoked for 45 years but quit 3 months ago. Drinks alcohol occasionally. Says a six pack lasts him about a month. Lives with daughter and her significant other. Past Drug Use History: None Reported - Past Family History Daughter(s) Family Medical History: No Reported History Medications and Allergies Home Medications Medication Instructions Recorded Confirmed Type Latanoprost [Xalatan 0.005%] 1 drop LEFT EYE HS 10/31/17 08/22/19 History Albuterol Inhaler [Ventolin Hfa 1 puff INHALATION RT-Q6H PRN 08/22/19 08/22/19 History Inhaler] Vit C/E/Zn/Coppr/Lutein/Zeaxan 1 tab PO DAILY 08/22/19 08/22/19 History [Preservision Areds 2 Softgel] Allergies Allergy/AdvReac Type Severity Reaction Status Date / Time aspirin Allergy Rash/Hives Verified 08/22/19 16:31 Physical Exam Vitals: Vital Signs Temp Pulse Pulse Resp BP BP Pulse Ox 08/23/19 08:00 98.1 F 76 18 128/63 96 08/23/19 07:40 80 08/23/19 07:24 76 08/23/19 04:00 98.1 F 70 20 105/61 97 08/23/19 00:00 98.3 F 83 18 122/72 97 08/22/19 19:45 97.9 F 76 20 141/67 99 08/22/19 19:14 87 08/22/19 19:04 87 08/22/19 18:16 87 20 138/80 100 08/22/19 17:19 20 100 08/22/19 16:43 57 L 20 142/70 100 08/22/19 16:33 98.6 F 65 14 136/66 98 08/22/19 15:43 61 18 134/80 100 08/22/19 15:31 85 08/22/19 15:22 96 08/22/19 14:56 22 08/22/19 14:43 18 08/22/19 14:41 98.1 F 100 24 147/80 96 Intake and Output 08/22/19 08/23/19 08/23/19 22:59 06:59 14:59 Other: Voiding Method Toilet Toilet Toilet # Voids 1 1 Weight 83.915 kg The patient appeared well nourished and normally developed. Vital signs as documented. Head exam is unremarkable. No scleral icterus or corneal arcus noted. Neck is without jugular venous distension, thyromegaly, or carotid bruits. Carotid upstrokes are brisk bilaterally. The patient has poor dental status Lungs are diminished breath sound along with scattered rhonchi and scattered external wheeze. Cardiac exam reveals the PMI to be normally sized and situated. Rhythm is regular. First and second heart sounds normal. No murmurs, rubs or gallops. Abdominal exam reveals normal bowel sounds, no masses, no org anomegaly and no aortic enlargement. Extremities are nonedematous and both femoral and pedal pulses are normal.Examination of the skin revealed no evidence of significant rashes, suspicious appearing nevi or other concerning lesions. Neurologically the patient is awake and alert and there is no focal neurological deficit Results - Laboratory Findings CBC and BMP: 08/22/19 15:07 08/23/19 05:47 Abnormal lab findings: Abnormal Labs 08/22/19 08/22/19 08/23/19 15:07 15:07 05:47 Eosinophils # 1.2 H Sodium 134 L 132 L Chloride 96 L BUN 4 L Creatinine 0.49 L 0.47 L Glucose 106 H 146 H POC Glucose (mg/dL) 08/23/19 08/23/19 06:20 12:00 Eosinophils # Sodium Chloride BUN Creatinine Glucose POC Glucose (mg/dL) 145 H 115 H - Diagnostic Findings Chest x-ray: image reviewed Assessment and Plan Plan: 1 acute COPD exacerbation with secondary shortness of breath. This is a second hospitalization for this current year for similar symptoms of COPD exacerbation. The patient's last hospitalization was in April 2019 when he came in for an acute COPD exacerbation due to influenza B infection. Back then he had a typical manifestation of viral syndrome related to influenza. His chest x-ray is not showing any acute abnormalities. Is covered 19 evaluation still pending. 2 dyspnea secondary to above 3 biapical pulmonary scarring as seen on today's chest x-ray 4 glaucoma 5 history of C. diff colitis 6 history of atrial fibrillation occurred during an earlier hospitalization that converted to normal sinus rhythm Plan Continue bronchodilators steroids No evidence of any pneumonia Clinically improving We'll need outpatient follow regarding his COPD. Recommend a maintenance inhalational treatments such as Spiriva in addition to an albuterol nebulizer that can be arranged at the time of discharge. Outpatient PFT is also to follow
--- NOTE | 2019-08-23 12:56 | P.PN ---
Subjective This is a pleasant 64 years old male with past medical history of COPD, and glaucoma. He follows up with Dr. Noa Lau of [facility]. He does not see a policy services representative. He was diagnosed with COPD about 3 months ago when he was in the hospital he did used to smoke and quit 2 years ago. He used to smoke half pack per day for 55 years. He denies alcohol or illicit tracts. This time he presents with worsening dyspnea for about 2 days, not relieved by his inhaler. He has some cough but no phlegm. He has mild central chest pain that is worse with coughing. He uses only inhaler at home, besides, eyedrops and some vitamins for his macular degeneration Vitas looks stable. Labs show an unremarkable CBC, BMP and liver enzymes. Chest x-ray showing COPD with biapical pleural thickening EKG: Normal sinus rhythm with no significant ST-T changes. QTC is 510 08/23/2019 Patient still dyspneic, he has extensive coughing with little blood in it, however is not in respiratory distress, his saturations in the 90s on 2 L oxygen. No chest pain Vitals stable and saturating 96% on 2 L oxygen. Sugar is controlled Patient remains on Solu-Medrol intravenously Pulmonary input is appreciated Review of Systems CONSTITUTIONAL: No fever, no malaise, no fatigue. HEENT: No recent visual problems or hearing problems. Denied any sore throat. CARDIOVASCULAR: No orthopnea, PND, no palpitations, no syncope. GASTROINTESTINAL: No diarrhea, no nausea, no vomiting, no abdominal pain. Normoactive bowel sounds. NEUROLOGICAL: No headaches, no weakness, no numbness. HEMATOLOGICAL: Denies any bleeding or petechiae. GENITOURINARY: Denies any burning micturition, frequency, or urgency. MUSCULOSKELETAL/RHEUMATOLOGICAL: Denies any joint pain, swelling, or any muscle pain. ENDOCRINE: Denies any polyuria or polydipsia. Active Medications Generic Name Dose Route Start Last Admin Trade Name Freq PRN Reason Stop Dose Admin Albuterol/Ipratropium 3 ml 08/22/19 20:00 08/23/19 12:25 Duoneb 0.5 Mg-3 Mg/3 Ml Soln INHALATION 3 ml RT-QID TREVOR Administration Albuterol/Ipratropium 3 ml 08/22/19 16:11 Duoneb 0.5 Mg-3 Mg/3 Ml Soln INHALATION RT-Q4H PRN Shortness Of Breath Or Wheezing Famotidine 20 mg 08/22/19 21:00 08/23/19 09:00 Pepcid IV 20 mg Q12HR TREVOR Administration Heparin Sodium (Porcine) 5,000 unit 08/22/19 21:00 08/23/19 09:00 Heparin SQ 5,000 unit Q12HR TREVOR Administration Insulin Aspart 0 unit 08/23/19 07:30 08/23/19 12:19 Novolog SQ Not Given ACHS [facility] Protocol Methylprednisolone Sodium Succinate 60 mg 08/22/19 22:00 08/23/19 12:39 Solu-Medrol IV 60 mg Q6HR TREVOR Administration Sodium Chloride 10 ml 08/22/19 21:00 08/23/19 09:00 Saline Flush IV 10 ml BID TREVOR Administration Objective - Vital Signs Vital signs: Vital Signs Temp 98.1 F 08/23/19 08:00 Pulse 84 08/23/19 12:38 Resp 18 08/23/19 08:00 BP 128/63 08/23/19 08:00 Pulse Ox 96 08/23/19 08:00 Intake & Output 08/22/19 08/23/19 08/23/19 18:59 06:59 18:59 Weight 83.915 kg Other: Voiding Method Toilet Toilet # Voids 1 1 - Exam GENERAL: The patient is alert and oriented x3, not in any acute distress. Well developed, well nourished. HEENT: Pupils are round and equally reacting to light. EOMI. No scleral icterus. No conjunctival pallor. Normocephalic, atraumatic. No pharyngeal erythema. No thyromegaly. CARDIOVASCULAR: S1 and S2 present. No murmurs, rubs, or gallops. PULMONARY: Chest is clear to auscultation,. Significant expiratory wheezing on both sides- ABDOMEN: Soft, nontender, nondistended, normoactive bowel sounds. No palpable organomegaly. MUSCULOSKELETAL: No joint swelling or deformity. EXTREMITIES: No cyanosis, clubbing, or pedal edema. NEUROLOGICAL: Gross neurological examination did not reveal any focal deficits. SKIN: No rashes. no petechiae. - Labs CBC & Chem 7: 08/22/19 15:07 08/23/19 05:47 Labs: Abnormal Lab Results - Last 24 Hours (Table) 08/22/19 08/22/19 08/23/19 Range/Units 15:07 15:07 05:47 Eosinophils # 1.2 H (0-0.7) k/uL Sodium 134 L 132 L (137-145) mmol/L Chloride 96 L (98-107) mmol/L BUN 4 L (9-20) mg/dL Creatinine 0.49 L 0.47 L (0.66-1.25) mg/dL Glucose 106 H 146 H (74-99) mg/dL POC Glucose (mg/dL) (75-99) mg/dL 08/23/19 08/23/19 Range/Units 06:20 12:00 Eosinophils # (0-0.7) k/uL Sodium (137-145) mmol/L Chloride (98-107) mmol/L BUN (9-20) mg/dL Creatinine (0.66-1.25) mg/dL Glucose (74-99) mg/dL POC Glucose (mg/dL) 145 H 115 H (75-99) mg/dL Assessment and Plan Assessment: Acute COPD exacerbation Bilateral apical pleural thickening glaucoma Macular degeneration Plan: This is a pleasant 64 years old male who presents with COPD exacerbation and has bilateral apical pleural thickening. Continue with steroids, bronchodilators and oxygen as needed. Consult pulmonary Labs and medication were reviewed.. Continue same treatment. Continue with symptomatic treatment. Resume home medication. Monitor lytes and vitals. DVT and GI prophylaxis. Further recommendations of the clinical course of the patient DVT prophylaxis: Subcutaneous heparin GI Prophylaxis: Pepcid
[2019-08-23 18:03] LABS: Glucose,Whole Blood 167 mg/dL (75-99)
[2019-08-23 20:14] LABS: Glucose,Whole Blood 130 mg/dL (75-99)
[2019-08-24] MEDS: methylPREDNISolone SOD SUCCI 125 MG/2 ML VIAL IV SCH ×5 (00:27→23:40)
[2019-08-24] MEDS: IPRATROPIUM-ALBUTEROL 3 ML NEB INHALATION PRN (00:35)
[2019-08-24 06:13] LABS: African American GFR (CKD) >90 (>60 ml/min/1.73 sqM); Anion Gap 6 mmol/L; Blood Urea Nitrogen 10 mg/dL (9-20); Calcium 8.2 mg/dL (8.4-10.2); Carbon Dioxide 29 mmol/L (22-30); Chloride 92 mmol/L (98-107); Glucose 150 mg/dL (74-99); Non-African American GFR(CKD) >90 (>60 ml/min/1.73 sqM); Potassium 3.9 mmol/L (3.5-5.1); Sodium 127 mmol/L (137-145)
[2019-08-24 06:28] LABS: Glucose,Whole Blood 152 mg/dL (75-99)
[2019-08-24] MEDS: IPRATROPIUM-ALBUTEROL 3 ML NEB INHALATION SCH ×4 (08:24→21:03)
[2019-08-24] MEDS: FAMOTIDINE 20 MG/2 ML VIAL IV SCH (09:18)
[2019-08-24] MEDS: INSULIN ASPART (NovoLOG) 100 UNIT/ML VIAL SQ SCH ×4 (09:18→21:26)
[2019-08-24] MEDS: HEPARIN SODIUM,PORCINE 5,000 UNIT/ML 1 ML VIAL SQ SCH ×2 (09:18→21:27)
--- NOTE | 2019-08-24 10:13 | P.PN ---
Subjective Progress Note Date: 08/24/19 A 64-year-old male patient who got hospitalized because of worsening shortness of breath. The patient has COPD and his developing these count congestion chest tightness and wheezing and for that reason he end up coming into the hospital. Chest x-ray was consistent with COPD with some by apical pleural thickening. EKG was a normal sinus rhythm without any acute ischemic changes. Note that the patient is known to me. I took care of him in the hospital few months back when he was admitted for an acute COPD exacerbation secondary to the influenza B respiratory infection. The patient recovered from that. However, he was not given a maintenance respiratory medications and he did not have any follow-up with me in the office. As such I'm not sure of his baseline lung capacity or FEV1. The patient is an ex-smoker. No exposed to any respiratory intensive chemical. No hemoptysis. No pleurisy. No other new complaints for now. Clinically improved compared to yesterday. He is on a combination bronchodilators and IV Solu-Medrol. On 08/24/2019, the patient is still symptomatic bronchospastic and wheezy. Limited improvement compared to yesterday. We'll continue the IV Solu-Medrol. Will add and antibiotics orally Zithromax 5 mg by mouth daily. We'll continue the bronchodilators and add Perforomist. No significant sputum production. No fever or chills. Sodium dropped to 127. Is currently on no IV fluids. Tolerating his diet. No altered mentation. Objective - Vital Signs Vital signs: Vital Signs Temp 98.0 F 08/24/19 07:47 Pulse 52 L 08/24/19 08:36 Resp 16 08/24/19 07:47 BP 115/60 08/24/19 07:47 Pulse Ox 95 08/24/19 07:47 Intake & Output 08/23/19 08/24/19 08/24/19 18:59 06:59 18:59 Intake Total 1200 Balance 1200 Intake: Oral 1200 Other: Voiding Method Toilet Toilet Toilet # Voids 1 1 1 - Exam The patient appeared well nourished and normally developed. Vital signs as documented. Head exam is unremarkable. No scleral icterus or corneal arcus noted. Neck is without jugular venous distension, thyromegaly, or carotid bruits. Carotid upstrokes are brisk bilaterally. The patient has poor dental status Lungs are diminished breath sound along with scattered rhonchi and scatte red external wheeze. Cardiac exam reveals the PMI to be normally sized and situated. Rhythm is regular. First and second heart sounds normal. No murmurs, rubs or gallops. Abdominal exam reveals normal bowel sounds, no masses, no organomegaly and no aortic enlargement. Extremities are nonedematous and both femoral and pedal pulses are normal.Examination of the skin revealed no evidence of significant rashes, suspicious appearing nevi or other concerning lesions. Neurologically the patient is awake and alert and there is no focal neurological deficit - Labs CBC & Chem 7: 08/22/19 15:07 08/24/19 05:34 Labs: Abnormal Lab Results - Last 24 Hours (Table) 08/23/19 08/23/19 08/23/19 Range/Units 12:00 18:01 20:13 Sodium (137-145) mmol/L Chloride (98-107) mmol/L Creatinine (0.66-1.25) mg/dL Glucose (74-99) mg/dL POC Glucose (mg/dL) 115 H 167 H 130 H (75-99) mg/dL Calcium (8.4-10.2) mg/dL 08/24/19 08/24/19 Range/Units 05:34 06:26 Sodium 127 L (137-145) mmol/L Chloride 92 L (98-107) mmol/L Creatinine 0.47 L (0.66-1.25) mg/dL Glucose 150 H (74-99) mg/dL POC Glucose (mg/dL) 152 H (75-99) mg/dL Calcium 8.2 L (8.4-10.2) mg/dL Assessment and Plan Plan: 1 acute COPD exacerbation with secondary shortness of breath. This is a second hospitalization for this current year for similar symptoms of COPD exacerbation. The patient's last hospitalization was in April 2019 when he came in for an acute COPD exacerbation due to influenza B infection. Back then he had a typical manifestation of viral syndrome related to influenza. His chest x-ray is not showing any acute abnormalities. Is covered 19 evaluation still pending. 2 dyspnea secondary to above 3 biapical pulmonary scarring as seen on today's chest x-ray 4 glaucoma 5 history of C. diff colitis 6 history of atrial fibrillation occurred during an earlier hospitalization that converted to normal sinus rhythm Plan Continue bronchodilators steroids Continue DuoNeb nebulized treatments 4 times a day [id number] Add Perforomist 1 nebulized treatment twice a day Add Zithromax 500 mg by mouth daily Overall condition unchanged compared to yesterday We'll need to stay in for another 24-48 hours and will continue to follow
[2019-08-24] MEDS: AZITHROMYCIN 500 MG TAB PO SCH (10:25)
[2019-08-24 11:48] LABS: Glucose,Whole Blood 118 mg/dL (75-99)
[2019-08-24 17:04] LABS: Glucose,Whole Blood 161 mg/dL (75-99)
--- NOTE | 2019-08-24 18:07 | P.PN ---
Subjective This is a pleasant 64 years old male with past medical history of COPD, and glaucoma. He follows up with Dr. Noa Lau of [facility]. He does not see a conventions assistant. He was diagnosed with COPD about 3 months ago when he was in the hospital he did used to smoke and quit 2 years ago. He used to smoke half pack per day for 55 years. He denies alcohol or illicit tracts. This time he presents with worsening dyspnea for about 2 days, not relieved by his inhaler. He has some cough but no phlegm. He has mild central chest pain that is worse with coughing. He uses only inhaler at home, besides, eyedrops and some vitamins for his macular degeneration Vitas looks stable. Labs show an unremarkable CBC, BMP and liver enzymes. Chest x-ray showing COPD with biapical pleural thickening EKG: Normal sinus rhythm with no significant ST-T changes. QTC is 510 08/23/2019 Patient still dyspneic, he has extensive coughing with little blood in it, however is not in respiratory distress, his saturations in the 90s on 2 L oxygen. No chest pain Vitals stable and saturating 96% on 2 L oxygen. Sugar is controlled Patient remains on Solu-Medrol intravenously Pulmonary input is appreciated 08/24/2019 pt is still dyspeic with persistant expirotory wheezing , similar to yesterday with no much improvement in his condition , conventions assistant added zithromax and perforomist to his treatment regimen while keep monitoring pt , pt is not ready to be discharged yet robitussin is also added to relieve pt coughing spells. vitals are stable though and he is saturating 94% on room air Objective - Vital Signs Vital signs: Vital Signs Temp 98.6 F 08/24/19 16:00 Pulse 60 08/24/19 16:05 Resp 18 08/24/19 16:00 BP 126/65 08/24/19 16:00 Pulse Ox 94 L 08/24/19 16:00 Intake & Output 08/23/19 08/24/19 08/24/19 18:59 06:59 18:59 Intake Total 1200 Balance 1200 Intake: Oral 1200 Other: Voiding Method Toilet Toilet Toilet # Voids 1 1 1 - Exam GENERAL: The patient is alert and oriented x3, not in any acute distress. Well developed, well nourished. HEENT: Pupils are round and equally reacting to light. EOMI. No scleral icterus. No conjunctival pallor. Normocephalic, atraumatic. No pharyngeal erythema. No thyromegaly. CARDIOVASCULAR: S1 and S2 present. No murmurs, rubs, or gallops. PULMONARY: Chest is clear to auscultation,. Significant expiratory wheezing on both sides- ABDOMEN: Soft, nontender, nondistended, normoactive bowel sounds. No palpable organomegaly. MUSCULOSKELETAL: No joint swelling or deformity. EXTREMITIES: No cyanosis, clubbing, or pedal edema. NEUROLOGICAL: Gross neurological examination did not reveal any focal deficits. SKIN: No rashes. no petechiae. - Labs CBC & Chem 7: 08/22/19 15:07 08/24/19 05:34 Labs: Abnormal Lab Results - Last 24 Hours (Table) 08/23/19 08/24/19 08/24/19 Range/Units 20:13 05:34 06:26 Sodium 127 L (137-145) mmol/L Chloride 92 L (98-107) mmol/L Creatinine 0.47 L (0.66-1.25) mg/dL Glucose 150 H (74-99) mg/dL POC Glucose (mg/dL) 130 H 152 H (75-99) mg/dL Calcium 8.2 L (8.4-10.2) mg/dL 08/24/19 08/24/19 Range/Units 11:47 17:03 Sodium (137-145) mmol/L Chloride (98-107) mmol/L Creatinine (0.66-1.25) mg/dL Glucose (74-99) mg/dL POC Glucose (mg/dL) 118 H 161 H (75-99) mg/dL Calcium (8.4-10.2) mg/dL Assessment and Plan Assessment: Acute COPD exacerbation Bilateral apical pleural thickening glaucoma Macular degeneration Plan: This is a pleasant 64 years old male who presents with COPD exacerbation and has bilateral apical pleural thickening. Continue with steroids, bronchodilators and oxygen as needed. zithromax and perforomist are added by pulmonary team Labs and medication were reviewed.. Continue same treatment. Continue with symptomatic treatment. Resume home medication. Monitor lytes and vitals. DVT and GI prophylaxis. Further recommendations of the clinical course of the patient DVT prophylaxis: Subcutaneous heparin GI Prophylaxis: Pepcid
[2019-08-24 18:37] LABS: Potassium 3.9 mmol/L (3.5-5.1)
[2019-08-24] MEDS: guaiFENesin-DM 100-10MG/5ML 10 ML CUP PO PRN (19:35)
[2019-08-24] MEDS: FORMOTEROL FUMARATE 20 MCG/2 ML NEBU INHALATION SCH (21:03)
[2019-08-24 21:18] LABS: Glucose,Whole Blood 151 mg/dL (75-99)
[2019-08-24] MEDS: FAMOTIDINE 20 MG TAB PO SCH (21:27)
[2019-08-25] MEDS: LATANOPROST 0.005% OPHTH DROPS 2.5 ML BTL LEFT EYE SCH ×2 (00:44→20:42)
[2019-08-25] MEDS ORDERED: ACETAMINOPHEN TAB 325 MG TAB PO STA (03:13)
[2019-08-25] MEDS: guaiFENesin-DM 100-10MG/5ML 10 ML CUP PO PRN ×2 (03:28→21:14)
[2019-08-25] MEDS: methylPREDNISolone SOD SUCCI 125 MG/2 ML VIAL IV SCH ×4 (06:24→23:16)
[2019-08-25 06:36] LABS: Glucose,Whole Blood 152 mg/dL (75-99)
[2019-08-25] MEDS: IPRATROPIUM-ALBUTEROL 3 ML NEB INHALATION SCH ×4 (07:53→19:46)
[2019-08-25] MEDS: FORMOTEROL FUMARATE 20 MCG/2 ML NEBU INHALATION SCH ×2 (07:56→19:46)
[2019-08-25 08:04] LABS: African American GFR (CKD) >90 (>60 ml/min/1.73 sqM); Anion Gap 8 mmol/L; Blood Urea Nitrogen 11 mg/dL (9-20); Calcium 8.3 mg/dL (8.4-10.2); Carbon Dioxide 28 mmol/L (22-30); Chloride 94 mmol/L (98-107); Glucose 128 mg/dL (74-99); Non-African American GFR(CKD) >90 (>60 ml/min/1.73 sqM); Potassium 3.8 mmol/L (3.5-5.1); Sodium 130 mmol/L (137-145)
[2019-08-25] MEDS: HEPARIN SODIUM,PORCINE 5,000 UNIT/ML 1 ML VIAL SQ SCH ×2 (08:43→20:41)
[2019-08-25] MEDS: FAMOTIDINE 20 MG TAB PO SCH ×2 (08:43→20:40)
[2019-08-25] MEDS: AZITHROMYCIN 500 MG TAB PO SCH (08:43)
[2019-08-25] MEDS: INSULIN ASPART (NovoLOG) 100 UNIT/ML VIAL SQ SCH ×4 (08:43→20:42)
[2019-08-25 11:34] LABS: Glucose,Whole Blood 190 mg/dL (75-99)
--- NOTE | 2019-08-25 11:46 | P.PN ---
Subjective This is a pleasant 64 years old male with past medical history of COPD, and glaucoma. He follows up with Dr. Noa Lau of [facility]. He does not see a government service executive. He was diagnosed with COPD about 3 months ago when he was in the hospital he did used to smoke and quit 2 years ago. He used to smoke half pack per day for 55 years. He denies alcohol or illicit tracts. This time he presents with worsening dyspnea for about 2 days, not relieved by his inhaler. He has some cough but no phlegm. He has mild central chest pain that is worse with coughing. He uses only inhaler at home, besides, eyedrops and some vitamins for his macular degeneration Vitas looks stable. Labs show an unremarkable CBC, BMP and liver enzymes. Chest x-ray showing COPD with biapical pleural thickening EKG: Normal sinus rhythm with no significant ST-T changes. QTC is 510 08/23/2019 Patient still dyspneic, he has extensive coughing with little blood in it, however is not in respiratory distress, his saturations in the 90s on 2 L oxygen. No chest pain Vitals stable and saturating 96% on 2 L oxygen. Sugar is controlled Patient remains on Solu-Medrol intravenously Pulmonary input is appreciated 08/24/2019 pt is still dyspeic with persistant expirotory wheezing , similar to yesterday with no much improvement in his condition , government service executive added zithromax and perforomist to his treatment regimen while keep monitoring pt , pt is not ready to be discharged yet robitussin is also added to relieve pt coughing spells. vitals are stable though and he is saturating 94% on room air 08/25/2019 Patient awake but is still have symptoms of dyspnea and expiratory wheezing despite his been on steroids. Pulmonary the case and they are increasing the dose of steroids. He is on her for most His vitals are stable and Herrman saturating 95% on room air. His sodium improved to 1:30, creatinine 0.4, sugars controlled. EKG showing normal sinus rhythm with sinus arrhythmia, with a rate of 84. No significant ST-T changes. His currently on Solu-Medrol 60 mg every 6 hours is also on formoterol and Zithromax is been added yesterday. Objective - Vital Signs Vital signs: Vital Signs Temp 98.2 F 08/25/19 08:37 Pulse 76 08/25/19 08:37 Resp 16 08/25/19 08:37 BP 130/73 08/25/19 08:37 Pulse Ox 95 08/25/19 08:37 Intake & Output 08/24/19 08/25/19 08/25/19 18:59 06:59 18:59 Intake Total 240 Balance 240 Intake: Oral 240 Other: Voiding Method Toilet Toilet Toilet # Voids 1 1 1 - Exam GENERAL: The patient is alert and oriented x3, not in any acute distress. Well developed, well nourished. HEENT: Pupils are round and equally reacting to light. EOMI. No scleral icterus. No conjunctival pallor. Normocephalic, atraumatic. No pharyngeal erythema. No thyromegaly. CARDIOVASCULAR: S1 and S2 present. No murmurs, rubs, or gallops. PULMONARY: Chest is clear to auscultation,. Significant expiratory wheezing on both sides- ABDOMEN: Soft, nontender, nondistended, normoactive bowel sounds. No palpable organomegaly. MUSCULOSKELETAL: No joint swelling or deformity. EXTREMITIES: No cyanosis, clubbing, or pedal edema. NEUROLOGICAL: Gross neurological examination did not reveal any focal deficits. SKIN: No rashes. no petechiae. - Labs CBC & Chem 7: 08/22/19 15:07 08/25/19 07:01 Labs: Abnormal Lab Results - Last 24 Hours (Table) 08/24/19 08/24/19 08/24/19 Range/Units 11:47 17:03 18:17 Sodium 128 L (137-145) mmol/L Chloride 92 L (98-107) mmol/L Creatinine (0.66-1.25) mg/dL Glucose (74-99) mg/dL POC Glucose (mg/dL) 118 H 161 H (75-99) mg/dL Calcium (8.4-10.2) mg/dL 08/24/19 08/25/19 08/25/19 Range/Units 21:10 06:24 07:01 Sodium 130 L (137-145) mmol/L Chloride 94 L (98-107) mmol/L Creatinine 0.49 L (0.66-1.25) mg/dL Glucose 128 H (74-99) mg/dL POC Glucose (mg/dL) 151 H 152 H (75-99) mg/dL Calcium 8.3 L (8.4-10.2) mg/dL 08/25/19 Range/Units 11:24 Sodium (137-145) mmol/L Chloride (98-107) mmol/L Creatinine (0.66-1.25) mg/dL Glucose (74-99) mg/dL POC Glucose (mg/dL) 190 H (75-99) mg/dL Calcium (8.4-10.2) mg/dL Assessment and Plan Assessment: Acute COPD exacerbation Bilateral apical pleural thickening glaucoma Macular degeneration Plan: This is a pleasant 64 years old male who presents with COPD exacerbation and has bilateral apical pleural thickening. Continue with steroids, bronchodilators and oxygen as needed. zithromax and perforomist are added by pulmonary team Labs and medication were reviewed.. Continue same treatment. Continue with symptomatic treatment. Resume home medication. Monitor lytes and vitals. DVT and GI prophylaxis. Further recommendations of the clinical course of the patient DVT prophylaxis: Subcutaneous heparin GI Prophylaxis: Pepcid
--- NOTE | 2019-08-25 12:45 | P.PN ---
Subjective Progress Note Date: 08/25/19 Principal diagnosis: Acute exacerbation of COPD Patient was reevaluated today on 08/25/19, patient was admitted on 08/22/19 with symptoms of acute exacerbation of COPD. He was seen by Dr. Mitchell on 08/22, and he was also seen by him on 08/23. Patient is maximized on medications, he is also on antibiotics in the form of Zithromax, IV Solu-Medrol. Patient continues to cough and wheeze. Continues to complain of shortness of breath. His O2 saturation is 95% on room air, but clinically the patient is not quite ready for discharge planning. Labs today including basic metabolic profile renal profile were relatively normal. Sodium is up to 130. Objective - Vital Signs Vital signs: Vital Signs Temp 98.2 F 08/25/19 08:37 Pulse 80 08/25/19 12:27 Resp 16 08/25/19 08:37 BP 130/73 08/25/19 08:37 Pulse Ox 95 08/25/19 08:37 Intake & Output 08/24/19 08/25/19 08/25/19 18:59 06:59 18:59 Intake Total 240 Balance 240 Intake: Oral 240 Other: Voiding Method Toilet Toilet Toilet # Voids 1 1 1 - Exam Physical Exam: Revealed a 64-year-old white male in no distress. Head: Atraumatic, normocephalic HEENT:[Neck is supple.] [No neck masses.] [No thyromegaly.] [No JVD.] Chest: Symmetrical chest expansion, diffuse rhonchi and wheezes bilaterally. More so on forced expiratory maneuver Cardiac Exam: [Normal S1 and S2, no S3 gallop, no murmur.] Abdomen: [Soft, nontender, no megaly, no rebound, no guarding, normal bowel sounds.] Extremities: [No clubbing, no edema, no cyanosis.] Neurological Exam: [No focal neurologic deficit.] Alert and oriented 3. Psychiatric: Normal mood, affect and normal mental status examination. Skin: No rashes. - Labs CBC & Chem 7: 08/22/19 15:07 08/25/19 07:01 Labs: Abnormal Lab Results - Last 24 Hours (Table) 06/28/20 06/28/20 06/28/20 Range/Units 17:03 18:17 21:10 Sodium 128 L (137-145) mmol/L Chloride 92 L (98-107) mmol/L Creatinine (0.66-1.25) mg/dL Glucose (74-99) mg/dL POC Glucose (mg/dL) 161 H 151 H (75-99) mg/dL Calcium (8.4-10.2) mg/dL 08/25/19 08/25/19 08/25/19 Range/Units 06:24 07:01 11:24 Sodium 130 L (137-145) mmol/L Chloride 94 L (98-107) mmol/L Creatinine 0.49 L (0.66-1.25) mg/dL Glucose 128 H (74-99) mg/dL POC Glucose (mg/dL) 152 H 190 H (75-99) mg/dL Calcium 8.3 L (8.4-10.2) mg/dL Assessment and Plan Assessment: Impression: Acute exacerbation of COPD Acute purulent tracheobronchitis and some component of hemoptysis secondary to bronchitis. Acute hemoptysis. Chronic biapical pulmonary scarring New onset atrial fibrillation upon his admission, presently in normal sinus rhythm. History of C. difficile colitis. Recommendation: Reviewed and discussed with the patient his present medications. Continue DuoNeb updrafts 4 times a day and when necessary. Continue Pulmicort and Perforomist. Continue IV Solu-Medrol. Continue Zithromax. Not ready for discharge planning. We'll continue to follow Time with Patient: Less than 30
[2019-08-25 17:05] LABS: Glucose,Whole Blood 150 mg/dL (75-99)
[2019-08-25] MEDS: BUDESONIDE 1 MG/2 ML NEBU INHALATION SCH (19:46)
[2019-08-25 20:06] LABS: Glucose,Whole Blood 184 mg/dL (75-99)
[2019-08-25] MEDS: ACETAMINOPHEN TAB 325 MG TAB PO PRN (20:40)
[2019-08-25] MEDS ORDERED: LATANOPROST 0.005% OPHTH DROPS 2.5 ML BTL LEFT EYE SCH (23:45)
[2019-08-26] MEDS: methylPREDNISolone SOD SUCCI 125 MG/2 ML VIAL IV SCH ×4 (05:56→23:35)
[2019-08-26] MEDS: guaiFENesin-DM 100-10MG/5ML 10 ML CUP PO PRN ×2 (06:05→21:50)
[2019-08-26] MEDS: ACETAMINOPHEN TAB 325 MG TAB PO PRN ×2 (06:05→20:19)
[2019-08-26 06:28] LABS: Glucose,Whole Blood 150 mg/dL (75-99)
[2019-08-26] MEDS: IPRATROPIUM-ALBUTEROL 3 ML NEB INHALATION SCH ×4 (06:28→19:01)
[2019-08-26] MEDS: FORMOTEROL FUMARATE 20 MCG/2 ML NEBU INHALATION SCH ×2 (07:11→19:01)
[2019-08-26] MEDS: BUDESONIDE 1 MG/2 ML NEBU INHALATION SCH ×2 (07:11→19:01)
[2019-08-26] MEDS: INSULIN ASPART (NovoLOG) 100 UNIT/ML VIAL SQ SCH ×4 (08:03→20:20)
[2019-08-26] MEDS: AZITHROMYCIN 500 MG TAB PO SCH (08:04)
[2019-08-26] MEDS: FAMOTIDINE 20 MG TAB PO SCH ×2 (08:04→20:20)
[2019-08-26] MEDS: HEPARIN SODIUM,PORCINE 5,000 UNIT/ML 1 ML VIAL SQ SCH ×2 (08:04→20:21)
[2019-08-26 08:14] LABS: African American GFR (CKD) >90 (>60 ml/min/1.73 sqM); Anion Gap 7 mmol/L; Blood Urea Nitrogen 12 mg/dL (9-20); Calcium 8.4 mg/dL (8.4-10.2); Carbon Dioxide 30 mmol/L (22-30); Chloride 95 mmol/L (98-107); Glucose 152 mg/dL (74-99); Non-African American GFR(CKD) >90 (>60 ml/min/1.73 sqM); Potassium 3.8 mmol/L (3.5-5.1); Sodium 132 mmol/L (137-145)
--- NOTE | 2019-08-26 11:38 | P.PN ---
Subjective This is a pleasant 64 years old male with past medical history of COPD, and glaucoma. He follows up with Dr. Noa Lau of [facility]. He does not see a soccer coach. He was diagnosed with COPD about 3 months ago when he was in the hospital he did used to smoke and quit 2 years ago. He used to smoke half pack per day for 55 years. He denies alcohol or illicit tracts. This time he presents with worsening dyspnea for about 2 days, not relieved by his inhaler. He has some cough but no phlegm. He has mild central chest pain that is worse with coughing. He uses only inhaler at home, besides, eyedrops and some vitamins for his macular degeneration Vitas looks stable. Labs show an unremarkable CBC, BMP and liver enzymes. Chest x-ray showing COPD with biapical pleural thickening EKG: Normal sinus rhythm with no significant ST-T changes. QTC is 510 08/23/2019 Patient still dyspneic, he has extensive coughing with little blood in it, however is not in respiratory distress, his saturations in the 90s on 2 L oxygen. No chest pain Vitals stable and saturating 96% on 2 L oxygen. Sugar is controlled Patient remains on Solu-Medrol intravenously Pulmonary input is appreciated 08/24/2019 pt is still dyspeic with persistant expirotory wheezing , similar to yesterday with no much improvement in his condition , soccer coach added zithromax and perforomist to his treatment regimen while keep monitoring pt , pt is not ready to be discharged yet robitussin is also added to relieve pt coughing spells. vitals are stable though and he is saturating 94% on room air 08/25/2019 Patient awake but is still have symptoms of dyspnea and expiratory wheezing despite his been on steroids. Pulmonary the case and they are increasing the dose of steroids. He is on her for most His vitals are stable and Herrman saturating 95% on room air. His sodium improved to 1:30, creatinine 0.4, sugars controlled. EKG showing normal sinus rhythm with sinus arrhythmia, with a rate of 84. No significant ST-T changes. His currently on Solu-Medrol 60 mg every 6 hours is also on formoterol and Zithromax is been added yesterday. 08/26/2019 patient still have significant wheezing and limited air expiratory infarct. Patient evaluated by soccer coach today and he does not think he is ready for discharge today and they agree with that. We'll continue with same treatment and add incentive spirometry Objective - Vital Signs Vital signs: Vital Signs Temp 98.1 F 08/26/19 08:04 Pulse 80 08/26/19 10:31 Resp 18 08/26/19 08:04 BP 117/64 08/26/19 08:04 Pulse Ox 93 L 08/26/19 08:04 Intake & Output 08/25/19 08/26/19 08/26/19 18:59 06:59 18:59 Intake Total 680 Balance 680 Intake: Oral 680 Other: Voiding Method Toilet Toilet Toilet # Voids 1 2 - Exam GENERAL: The patient is alert and oriented x3, not in any acute distress. Well developed, well nourished. HEENT: Pupils are round and equally reacting to light. EOMI. No scleral icterus. No conjunctival pallor. Normocephalic, atraumatic. No pharyngeal erythema. No thyromegaly. CARDIOVASCULAR: S1 and S2 present. No murmurs, rubs, or gallops. PULMONARY: Chest is clear to auscultation,. Significant expiratory wheezing on both sides- ABDOMEN: Soft, nontender, nondistended, normoactive bowel sounds. No palpable organomegaly. MUSCULOSKELETAL: No joint swelling or deformity. EXTREMITIES: No cyanosis, clubbing, or pedal edema. NEUROLOGICAL: Gross neurological examination did not reveal any focal deficits. SKIN: No rashes. no petechiae. - Labs CBC & Chem 7: 08/22/19 15:07 08/26/19 07:50 Labs: Abnormal Lab Results - Last 24 Hours (Table) 08/25/19 08/25/19 08/26/19 Range/Units 16:55 20:04 06:25 Sodium (137-145) mmol/L Chloride (98-107) mmol/L Creatinine (0.66-1.25) mg/dL Glucose (74-99) mg/dL POC Glucose (mg/dL) 150 H 184 H 150 H (75-99) mg/dL 08/26/19 Range/Units 07:50 Sodium 132 L (137-145) mmol/L Chloride 95 L (98-107) mmol/L Creatinine 0.51 L (0.66-1.25) mg/dL Glucose 152 H (74-99) mg/dL POC Glucose (mg/dL) (75-99) mg/dL Assessment and Plan Assessment: Acute COPD exacerbation Bilateral apical pleural thickening glaucoma Macular degeneration Plan: This is a pleasant 64 years old male who presents with COPD exacerbation and has bilateral apical pleural thickening. Continue with steroids, bronchodilators and oxygen as needed. zithromax and perforomist are added by pulmonary team Labs and medication were reviewed.. Continue same treatment. Continue with symptomatic treatment. Resume home medication. Monitor lytes and vitals. DVT and GI prophylaxis. Further recommendations of the clinical course of the patient DVT prophylaxis: Subcutaneous heparin GI Prophylaxis: Pepcid
[2019-08-26 11:41] LABS: Glucose,Whole Blood 163 mg/dL (75-99)
--- NOTE | 2019-08-26 12:19 | P.PN ---
Subjective Progress Note Date: 08/26/19 Principal diagnosis: Acute exacerbation of COPD Patient was reevaluated today on 08/25/19, patient was admitted on 08/22/19 with symptoms of acute exacerbation of COPD. He was seen by Dr. Mitchell on 08/22, and he was also seen by him on 08/23. Patient is maximized on medications, he is also on antibiotics in the form of Zithromax, IV Solu-Medrol. Patient continues to cough and wheeze. Continues to complain of shortness of breath. His O2 saturation is 95% on room air, but clinically the patient is not quite ready for discharge planning. Labs today including basic metabolic profile renal profile were relatively normal. Sodium is up to 130. Patient was reevaluated today on 08/26/19, patient is still having significant amount of cough and wheezing. Continues to have shortness of breath, not much of an improvement noted in the last 24 hours. Clearly the patient is not ready for any discharge planning at this point. He is maximized on bronchodilators, he is also on antibiotics and on steroids. Again no plans to discharge the patient home today yet. Electrolytes are relatively normal renal profile is normal. Objective - Vital Signs Vital signs: Vital Signs Temp 98.1 F 08/26/19 08:04 Pulse 80 08/26/19 10:31 Resp 18 08/26/19 08:04 BP 117/64 08/26/19 08:04 Pulse Ox 93 L 08/26/19 08:04 Intake & Output 08/25/19 08/26/19 08/26/19 18:59 06:59 18:59 Intake Total 680 Balance 680 Intake: Oral 680 Other: Voiding Method Toilet Toilet Toilet # Voids 1 2 - Exam Physical Exam: Revealed a 64-year-old white male, sitting in bed, on room air, in no distress. Head: Atraumatic, normocephalic HEENT:[Neck is supple.] [No neck masses.] [No thyromegaly.] [No JVD.] Chest: Symmetrical chest expansion, diffuse rhonchi and wheezes bilaterally. Unchanged from yesterday Cardiac Exam: [Normal S1 and S2, no S3 gallop, no murmur.] Abdomen: [Soft, nontender, no megaly, no rebound, no guarding, normal bowel claudia nds.] Extremities: [No clubbing, no edema, no cyanosis.] Neurological Exam: [No focal neurologic deficit.] Alert and oriented 3. Psychiatric: Normal mood, affect and normal mental status examination. Skin: No rashes. - Labs CBC & Chem 7: 08/22/19 15:07 08/26/19 07:50 Labs: Abnormal Lab Results - Last 24 Hours (Table) 08/25/19 08/25/19 08/26/19 Range/Units 16:55 20:04 06:25 Sodium (137-145) mmol/L Chloride (98-107) mmol/L Creatinine (0.66-1.25) mg/dL Glucose (74-99) mg/dL POC Glucose (mg/dL) 150 H 184 H 150 H (75-99) mg/dL 08/26/19 08/26/19 Range/Units 07:50 11:40 Sodium 132 L (137-145) mmol/L Chloride 95 L (98-107) mmol/L Creatinine 0.51 L (0.66-1.25) mg/dL Glucose 152 H (74-99) mg/dL POC Glucose (mg/dL) 163 H (75-99) mg/dL Assessment and Plan Assessment: Impression: Acute exacerbation of COPD Acute purulent tracheobronchitis and some component of hemoptysis secondary to bronchitis. Acute hemoptysis. Secondary to bronchitis. Chronic biapical pulmonary scarring New onset atrial fibrillation upon his admission, presently in normal sinus rhythm. History of C. difficile colitis. Recommendation: Continue DuoNeb updrafts 4 times a day and when necessary. Continue Pulmicort and Perforomist. Continue IV Solu-Medrol. Continue Zithromax. Again not ready for discharge planning at this point yet. We'll continue to follow Time with Patient: Less than 30
[2019-08-26 16:52] LABS: Glucose,Whole Blood 135 mg/dL (75-99)
[2019-08-26 20:08] LABS: Glucose,Whole Blood 136 mg/dL (75-99)
[2019-08-26] MEDS: LATANOPROST 0.005% OPHTH DROPS 2.5 ML BTL LEFT EYE SCH (20:22)
[2019-08-27] MEDS: ACETAMINOPHEN TAB 325 MG TAB PO PRN (04:57)
[2019-08-27] MEDS: methylPREDNISolone SOD SUCCI 125 MG/2 ML VIAL IV SCH ×3 (05:11→17:36)
[2019-08-27 06:37] LABS: Glucose,Whole Blood 136 mg/dL (75-99)
[2019-08-27] MEDS: FORMOTEROL FUMARATE 20 MCG/2 ML NEBU INHALATION SCH ×2 (06:56→20:49)
[2019-08-27] MEDS: IPRATROPIUM-ALBUTEROL 3 ML NEB INHALATION SCH ×4 (06:56→20:49)
[2019-08-27] MEDS: BUDESONIDE 1 MG/2 ML NEBU INHALATION SCH ×2 (06:56→20:49)
[2019-08-27] MEDS: INSULIN ASPART (NovoLOG) 100 UNIT/ML VIAL SQ SCH ×4 (07:51→21:00)
[2019-08-27] MEDS: AZITHROMYCIN 500 MG TAB PO SCH (07:52)
[2019-08-27] MEDS: HEPARIN SODIUM,PORCINE 5,000 UNIT/ML 1 ML VIAL SQ SCH ×2 (07:52→21:00)
[2019-08-27] MEDS: FAMOTIDINE 20 MG TAB PO SCH ×2 (07:52→21:00)
--- NOTE | 2019-08-27 08:16 | XR ---
EXAMINATION TYPE: XR chest 1V DATE OF EXAM: 08/27/2019 COMPARISON: 08/22/2019 HISTORY: Shortness of breath TECHNIQUE: Single frontal view of the chest is obtained. FINDINGS: Arthropathy of the shoulders. Postsurgical change left shoulder. Heart size normal. Hyperi nflation suggests COPD. No overt failure or consolidation. And tiny blebs at the lung apices with perlita pical pleural thickening. IMPRESSION: COPD.
--- NOTE | 2019-08-27 08:19 | P.PN ---
Subjective This is a pleasant 64 years old male with past medical history of COPD, and glaucoma. He follows up with Dr. Noa Lau of [facility]. He does not see a metal control worker. He was diagnosed with COPD about 3 months ago when he was in the hospital he did used to smoke and quit 2 years ago. He used to smoke half pack per day for 55 years. He denies alcohol or illicit tracts. This time he presents with worsening dyspnea for about 2 days, not relieved by his inhaler. He has some cough but no phlegm. He has mild central chest pain that is worse with coughing. He uses only inhaler at home, besides, eyedrops and some vitamins for his macular degeneration Vitas looks stable. Labs show an unremarkable CBC, BMP and liver enzymes. Chest x-ray showing COPD with biapical pleural thickening EKG: Normal sinus rhythm with no significant ST-T changes. QTC is 510 08/23/2019 Patient still dyspneic, he has extensive coughing with little blood in it, however is not in respiratory distress, his saturations in the 90s on 2 L oxygen. No chest pain Vitals stable and saturating 96% on 2 L oxygen. Sugar is controlled Patient remains on Solu-Medrol intravenously Pulmonary input is appreciated 08/24/2019 pt is still dyspeic with persistant expirotory wheezing , similar to yesterday with no much improvement in his condition , metal control worker added zithromax and perforomist to his treatment regimen while keep monitoring pt , pt is not ready to be discharged yet robitussin is also added to relieve pt coughing spells. vitals are stable though and he is saturating 94% on room air 08/25/2019 Patient awake but is still have symptoms of dyspnea and expiratory wheezing despite his been on steroids. Pulmonary the case and they are increasing the dose of steroids. He is on her for most His vitals are stable and Herrman saturating 95% on room air. His sodium improved to 1:30, creatinine 0.4, sugars controlled. EKG showing normal sinus rhythm with sinus arrhythmia, with a rate of 84. No significant ST-T changes. His currently on Solu-Medrol 60 mg every 6 hours is also on formoterol and Zithromax is been added yesterday. 08/26/2019 patient still have significant wheezing and limited air expiratory infarct. Patient evaluated by metal control worker today and he does not think he is ready for discharge today and they agree with that. We'll continue with same treatment and add incentive spirometry 08/27/2019 Patient still with a significant wheezing, he is able to walk with exertional dyspnea. He still has coughing. His Robitussin dose was increased. Also will repeat chest x-ray for follow-up Vitals are stable and he is using incentive spirometry, is currently on Solu- Medrol, Zithromax, Perforomist and Pulmicort. Objective - Vital Signs Vital signs: Vital Signs Temp 97.8 F 08/27/19 04:00 Pulse 62 08/27/19 07:26 Resp 17 08/27/19 04:00 BP 124/63 08/27/19 04:00 Pulse Ox 95 08/27/19 04:00 Intake & Output 08/26/19 08/27/19 08/27/19 18:59 06:59 18:59 Intake Total 740 720 240 Balance 740 720 240 Intake: Oral 240 720 240 Other 500 Other: Voiding Method Toilet Toilet # Voids 2 1 - Exam GENERAL: The patient is alert and oriented x3, not in any acute distress. Well developed, well nourished. HEENT: Pupils are round and equally reacting to light. EOMI. No scleral icterus. No conjunctival pallor. Normocephalic, atraumatic. No pharyngeal erythema. No thyromegaly. CARDIOVASCULAR: S1 and S2 present. No murmurs, rubs, or gallops. PULMONARY: Chest is clear to auscultation,. Significant expiratory wheezing on both sides- ABDOMEN: Soft, nontender, nondistended, normoactive bowel sounds. No palpable organomegaly. MUSCULOSKELETAL: No joint swelling or deformity. EXTREMITIES: No cyanosis, clubbing, or pedal edema. NEUROLOGICAL: Gross neurological examination did not reveal any focal deficits. SKIN: No rashes. no petechiae. - Labs CBC & Chem 7: 08/22/19 15:07 08/26/19 07:50 Labs: Abnormal Lab Results - Last 24 Hours (Table) 08/26/19 08/26/19 08/26/19 Range/Units 11:40 16:51 20:07 POC Glucose (mg/dL) 163 H 135 H 136 H (75-99) mg/dL 08/27/19 Range/Units 06:36 POC Glucose (mg/dL) 136 H (75-99) mg/dL Assessment and Plan Assessment: Acute COPD exacerbation Bilateral apical pleural thickening glaucoma Macular degeneration Plan: This is a pleasant 64 years old male who presents with COPD exacerbation and has bilateral apical pleural thickening. Continue with steroids, bronchodilators and oxygen as needed. zithromax and perforomist are added by pulmonary team Labs and medication were reviewed.. Continue same treatment. Continue with symptomatic treatment. Resume home medication. Monitor lytes and vitals. DVT and GI prophylaxis. Further recommendations of the clinical course of the patient DVT prophylaxis: Subcutaneous heparin GI Prophylaxis: Pepcid
[2019-08-27] MEDS: guaiFENesin-DM 100-10MG/5ML 10 ML CUP PO SCH ×3 (08:32→17:31)
--- NOTE | 2019-08-27 11:29 | P.PN ---
Subjective Progress Note Date: 08/27/19 Principal diagnosis: Acute exacerbation of COPD Patient was reevaluated today on 08/25/19, patient was admitted on 08/22/19 with symptoms of acute exacerbation of COPD. He was seen by Dr. Mitchell on 08/22, and he was also seen by him on 08/23. Patient is maximized on medications, he is also on antibiotics in the form of Zithromax, IV Solu-Medrol. Patient continues to cough and wheeze. Continues to complain of shortness of breath. His O2 saturation is 95% on room air, but clinically the patient is not quite ready for discharge planning. Labs today including basic metabolic profile renal profile were relatively normal. Sodium is up to 130. Patient was reevaluated today on 08/26/19, patient is still having significant amount of cough and wheezing. Continues to have shortness of breath, not much of an improvement noted in the last 24 hours. Clearly the patient is not ready for any discharge planning at this point. He is maximized on bronchodilators, he is also on antibiotics and on steroids. Again no plans to discharge the patient home today yet. Electrolytes are relatively normal renal profile is normal. Reevaluated today on 08/27/19, patient is making very minimal improvement, continues to cough and wheeze. Cough is productive with whitish phlegm, denies any fever no chills no hemoptysis no chest pain. Patient is maximized on bronchodilators, remains on antibiotics, and he is on IV Solu-Medrol. Based on my clinical findings, patient is not quite ready for any discharge planning. Chest x-ray showed no evidence of infiltrate. Objective - Vital Signs Vital signs: Vital Signs Temp 98.3 F 08/27/19 07:50 Pulse 81 08/27/19 07:50 Resp 14 08/27/19 07:50 BP 130/58 08/27/19 07:50 Pulse Ox 95 08/27/19 07:50 Intake & Output 08/26/19 08/27/19 08/27/19 18:59 06:59 18:59 Intake Total 740 720 240 Balance 740 720 240 Intake: Oral 240 720 240 Other 500 Other: Voiding Method Toilet Toilet Toilet # Voids 2 1 2 - Exam Physical Exam: Revealed a 64-year-old white male, sitting in bed, on room air, in no distress. Head: Atraumatic, normocephalic HEENT:[Neck is supple.] [No neck masses.] [No thyromegaly.] [No JVD.] Chest: Symmetrical chest expansion, continues to have rhonchi and wheezes th roughout Cardiac Exam: [Normal S1 and S2, no S3 gallop, no murmur.] Abdomen: [Soft, nontender, no megaly, no rebound, no guarding, normal bowel sounds.] Extremities: [No clubbing, no edema, no cyanosis.] Neurological Exam: [No focal neurologic deficit.] Alert and oriented 3. Psychiatric: Normal mood, affect and normal mental status examination. Skin: No rashes. - Labs CBC & Chem 7: 08/22/19 15:07 08/26/19 07:50 Labs: Abnormal Lab Results - Last 24 Hours (Table) 08/26/19 08/26/19 08/26/19 Range/Units 11:40 16:51 20:07 POC Glucose (mg/dL) 163 H 135 H 136 H (75-99) mg/dL 08/27/19 Range/Units 06:36 POC Glucose (mg/dL) 136 H (75-99) mg/dL Assessment and Plan Assessment: Impression: Acute exacerbation of COPD, slow improvement Acute purulent tracheobronchitis and some component of hemoptysis secondary to bronchitis. Resolved. Acute hemoptysis. Resolved Chronic biapical pulmonary scarring New onset atrial fibrillation upon his admission, presently in normal sinus rhythm. History of C. difficile colitis. Recommendation: Continue DuoNeb updrafts 4 times a day and when necessary. Continue Pulmicort and Perforomist. Continue IV Solu-Medrol. Continue Zithromax. Would not recommend discharge home.. We'll continue to follow Time with Patient: Less than 30
[2019-08-27 11:53] LABS: Glucose,Whole Blood 158 mg/dL (75-99)
[2019-08-27 16:47] LABS: Glucose,Whole Blood 140 mg/dL (75-99)
[2019-08-27 20:57] LABS: Glucose,Whole Blood 154 mg/dL (75-99)
[2019-08-27] MEDS: LATANOPROST 0.005% OPHTH DROPS 2.5 ML BTL LEFT EYE SCH (22:03)
[2019-08-28] MEDS: methylPREDNISolone SOD SUCCI 125 MG/2 ML VIAL IV SCH ×4 (00:42→17:24)
[2019-08-28] MEDS: guaiFENesin-DM 100-10MG/5ML 10 ML CUP PO SCH ×4 (00:42→17:21)
[2019-08-28] MEDS: ACETAMINOPHEN TAB 325 MG TAB PO PRN (06:02)
[2019-08-28 06:58] LABS: Glucose,Whole Blood 139 mg/dL (75-99)
[2019-08-28] MEDS: FAMOTIDINE 20 MG TAB PO SCH ×2 (08:27→20:01)
[2019-08-28] MEDS: AZITHROMYCIN 500 MG TAB PO SCH (08:27)
[2019-08-28] MEDS: INSULIN ASPART (NovoLOG) 100 UNIT/ML VIAL SQ SCH ×4 (08:27→19:59)
[2019-08-28] MEDS: HEPARIN SODIUM,PORCINE 5,000 UNIT/ML 1 ML VIAL SQ SCH ×2 (08:27→20:01)
[2019-08-28] MEDS: IPRATROPIUM-ALBUTEROL 3 ML NEB INHALATION SCH ×4 (08:46→20:34)
[2019-08-28] MEDS: FORMOTEROL FUMARATE 20 MCG/2 ML NEBU INHALATION SCH ×2 (08:46→20:34)
[2019-08-28] MEDS: BUDESONIDE 1 MG/2 ML NEBU INHALATION SCH ×2 (08:46→20:34)
[2019-08-28 11:25] LABS: Glucose,Whole Blood 121 mg/dL (75-99)
[2019-08-28] MEDS ORDERED: BENZONATATE 100 MG CAP PO PRN (12:08)
--- NOTE | 2019-08-28 12:21 | P.PN ---
Subjective This is a pleasant 64 years old male with past medical history of COPD, and glaucoma. He follows up with Dr. Noa Lau of [facility]. He does not see a auto carrier driver. He was diagnosed with COPD about 3 months ago when he was in the hospital he did used to smoke and quit 2 years ago. He used to smoke half pack per day for 55 years. He denies alcohol or illicit tracts. This time he presents with worsening dyspnea for about 2 days, not relieved by his inhaler. He has some cough but no phlegm. He has mild central chest pain that is worse with coughing. He uses only inhaler at home, besides, eyedrops and some vitamins for his macular degeneration Vitas looks stable. Labs show an unremarkable CBC, BMP and liver enzymes. Chest x-ray showing COPD with biapical pleural thickening EKG: Normal sinus rhythm with no significant ST-T changes. QTC is 510 08/23/2019 Patient still dyspneic, he has extensive coughing with little blood in it, however is not in respiratory distress, his saturations in the 90s on 2 L oxygen. No chest pain Vitals stable and saturating 96% on 2 L oxygen. Sugar is controlled Patient remains on Solu-Medrol intravenously Pulmonary input is appreciated 08/24/2019 pt is still dyspeic with persistant expirotory wheezing , similar to yesterday with no much improvement in his condition , auto carrier driver added zithromax and perforomist to his treatment regimen while keep monitoring pt , pt is not ready to be discharged yet robitussin is also added to relieve pt coughing spells. vitals are stable though and he is saturating 94% on room air 08/25/2019 Patient awake but is still have symptoms of dyspnea and expiratory wheezing despite his been on steroids. Pulmonary the case and they are increasing the dose of steroids. He is on her for most His vitals are stable and Herrman saturating 95% on room air. His sodium improved to 1:30, creatinine 0.4, sugars controlled. EKG showing normal sinus rhythm with sinus arrhythmia, with a rate of 84. No significant ST-T changes. His currently on Solu-Medrol 60 mg every 6 hours is also on formoterol and Zithromax is been added yesterday. 08/26/2019 patient still have significant wheezing and limited air expiratory infarct. Patient evaluated by auto carrier driver today and he does not think he is ready for discharge today and they agree with that. We'll continue with same treatment and add incentive spirometry 08/27/2019 Patient still with a significant wheezing, he is able to walk with exertional dyspnea. He still has coughing. His Robitussin dose was increased. Also will repeat chest x-ray for follow-up Vitals are stable and he is using incentive spirometry, is currently on Solu- Medrol, Zithromax, Perforomist and Pulmicort. 08/28/2019 Patient still wheezing with no improvement. He still coughing and he is getting some abdominal discomfort from the cough, he is already on Robitussin, Tessalon is been added today Pulmonary on the case and they recommended bronchoscopy tomorrow Objective - Vital Signs Vital signs: Vital Signs Temp 98.1 F 08/28/19 07:00 Pulse 68 08/28/19 09:09 Resp 17 08/28/19 07:00 BP 140/77 08/28/19 07:00 Pulse Ox 97 08/28/19 07:00 Intake & Output 08/27/19 08/28/19 08/28/19 18:59 06:59 18:59 Intake Total 480 240 Output Total 30 Balance 480 240 -30 Intake: Oral 480 240 Output: Gastric Drainage 30 Other: Voiding Method Toilet Toilet Toilet # Voids 2 1 - Exam GENERAL: The patient is alert and oriented x3, not in any acute distress. Well developed, well nourished. HEENT: Pupils are round and equally reacting to light. EOMI. No scleral icterus. No conjunctival pallor. Normocephalic, atraumatic. No pharyngeal erythema. No thyromegaly. CARDIOVASCULAR: S1 and S2 present. No murmurs, rubs, or gallops. PULMONARY: Chest is clear to auscultation,. Significant expiratory wheezing on both sides- ABDOMEN: Soft, nontender, nondistended, normoactive bowel sounds. No palpable organomegaly. MUSCULOSKELETAL: No joint swelling or deformity. EXTREMITIES: No cyanosis, clubbing, or pedal edema. NEUROLOGICAL: Gross neurological examination did not reveal any focal deficits. SKIN: No rashes. no petechiae. - Labs CBC & Chem 7: 08/22/19 15:07 08/26/19 07:50 Labs: Abnormal Lab Results - Last 24 Hours (Table) 08/27/19 08/27/19 08/28/19 Range/Units 16:45 20:53 06:54 POC Glucose (mg/dL) 140 H 154 H 139 H (75-99) mg/dL 08/28/19 Range/Units 11:24 POC Glucose (mg/dL) 121 H (75-99) mg/dL Assessment and Plan Assessment: Acute COPD exacerbation Bilateral apical pleural thickening glaucoma Macular degeneration Plan: This is a pleasant 64 years old male who presents with COPD exacerbation and has bilateral apical pleural thickening. Continue with steroids, bronchodilators and oxygen as needed. zithromax and perforomist are added by pulmonary team Labs and medication were reviewed.. Continue same treatment. Continue with symptomatic treatment. Resume home medication. Monitor lytes and vitals. DVT and GI prophylaxis. Further recommendations of the clinical course of the patient DVT prophylaxis: Subcutaneous heparin GI Prophylaxis: Pepcid
--- NOTE | 2019-08-28 12:52 | P.PN ---
Subjective Progress Note Date: 08/28/19 Principal diagnosis: Acute exacerbation of chronic obstructive pulmonary disease The patient is seen today 08/28/2019 in follow-up on the regular medical floor. He is awake and alert in no acute distress. He is still somewhat bronchospastic and wheezy. Stating not much improved over the past couple of days. He remains on IV Solu-Medrol bronchodilators and antibiotics. Chest x-ray revealed no acute infiltrate. Maintaining good O2 saturations in the mid 90s on room air. She's afebrile. Hemodynamically stable. Objective - Vital Signs Vital signs: Vital Signs Temp 98.1 F 08/28/19 07:00 Pulse 68 08/28/19 12:33 Resp 17 08/28/19 07:00 BP 140/77 08/28/19 07:00 Pulse Ox 97 08/28/19 07:00 Intake & Output 08/27/19 08/28/19 08/28/19 18:59 06:59 18:59 Intake Total 480 240 Output Total 30 Balance 480 240 -30 Intake: Oral 480 240 Output: Gastric Drainage 30 Other: Voiding Method Toilet Toilet Toilet # Voids 2 1 - Exam GENERAL EXAM: Alert, pleasant 64-year-old gentleman, up in a chair at the bed side, on room air, comfortable in no apparent distress. HEAD: Normocephalic. EYES: Normal reaction of pupils, equal size. NOSE: Clear with pink turbinates. THROAT: No erythema or exudates. NECK: No masses, no JVD. CHEST: No chest wall deformity. LUNGS: Equal air entry with bilateral end expiratory wheeze, diminished. CVS: S1 and S2 normal with no audible murmur, regular rhythm. ABDOMEN: No hepatosplenomegaly, normal bowel sounds, no guarding or rigidity. SPINE: No scoliosis or deformity SKIN: No rashes CENTRAL NERVOUS SYSTEM: No focal deficits, tone is normal in all 4 extremities. EXTREMITIES: There is no peripheral edema. No clubbing, no cyanosis. Peripheral pulses are intact. - Labs CBC & Chem 7: 08/22/19 15:07 08/26/19 07:50 Labs: Abnormal Lab Results - Last 24 Hours (Table) 08/27/19 08/27/19 08/28/19 Range/Units 16:45 20:53 06:54 POC Glucose (mg/dL) 140 H 154 H 139 H (75-99) mg/dL 08/28/19 Range/Units 11:24 POC Glucose (mg/dL) 121 H (75-99) mg/dL Assessment and Plan Assessment: Acute exacerbation of COPD, slow improvement Acute purulent tracheobronchitis and some component of hemoptysis secondary to bronchitis. Resolved. Acute hemoptysis. Resolved Chronic biapical pulmonary scarring New onset atrial fibrillation upon his admission, presently in normal sinus rhythm. History of C. difficile colitis. Plan: The patient was seen and evaluated by Dr. Watkins He has been slow to progress Planning for a bronchoscopy with BAL in the a.m. Continue current treatment plan Increase his activity as tolerated We'll continue to follow I, the cosigning physician, performed a history & physical examination of the patient. Lungs sounds with bilateral end expiratory wheeze, diminished. Maintaining good O2 saturations in the 90s on room air. I discussed the assessment and plan of care with my nurse practitioner, Brooke Apodaca. I attest to the above note as dictated by her.
[2019-08-28 16:49] LABS: Glucose,Whole Blood 177 mg/dL (75-99)
[2019-08-28 19:59] LABS: Glucose,Whole Blood 112 mg/dL (75-99)
[2019-08-28] MEDS: LATANOPROST 0.005% OPHTH DROPS 2.5 ML BTL LEFT EYE SCH (20:01)
[2019-08-28] MEDS ORDERED: guaiFENesin-DM 100-10MG/5ML 10 ML CUP PO PRN (22:01)
[2019-08-29] MEDS: methylPREDNISolone SOD SUCCI 125 MG/2 ML VIAL IV SCH ×4 (00:35→16:48)
[2019-08-29] MEDS: HEPARIN SODIUM,PORCINE 5,000 UNIT/ML 1 ML VIAL SQ SCH ×2 (06:42→20:40)
[2019-08-29] MEDS: FAMOTIDINE 20 MG TAB PO SCH ×2 (06:42→20:40)
[2019-08-29] MEDS: AZITHROMYCIN 500 MG TAB PO SCH (06:42)
[2019-08-29 07:24] LABS: Glucose,Whole Blood 139 mg/dL (75-99)
[2019-08-29] MEDS: INSULIN ASPART (NovoLOG) 100 UNIT/ML VIAL SQ SCH ×4 (07:58→20:30)
[2019-08-29] MEDS: FORMOTEROL FUMARATE 20 MCG/2 ML NEBU INHALATION SCH ×2 (08:18→19:59)
[2019-08-29] MEDS: BUDESONIDE 1 MG/2 ML NEBU INHALATION SCH ×2 (08:18→19:59)
[2019-08-29] MEDS: IPRATROPIUM-ALBUTEROL 3 ML NEB INHALATION SCH ×4 (08:18→19:59)
--- NOTE | 2019-08-29 08:29 | P.PN ---
Subjective This is a pleasant 64 years old male with past medical history of COPD, and glaucoma. He follows up with Dr. Noa Lau of [facility]. He does not see a recycling tech. He was diagnosed with COPD about 3 months ago when he was in the hospital he did used to smoke and quit 2 years ago. He used to smoke half pack per day for 55 years. He denies alcohol or illicit tracts. This time he presents with worsening dyspnea for about 2 days, not relieved by his inhaler. He has some cough but no phlegm. He has mild central chest pain that is worse with coughing. He uses only inhaler at home, besides, eyedrops and some vitamins for his macular degeneration Vitas looks stable. Labs show an unremarkable CBC, BMP and liver enzymes. Chest x-ray showing COPD with biapical pleural thickening EKG: Normal sinus rhythm with no significant ST-T changes. QTC is 510 08/23/2019 Patient still dyspneic, he has extensive coughing with little blood in it, however is not in respiratory distress, his saturations in the 90s on 2 L oxygen. No chest pain Vitals stable and saturating 96% on 2 L oxygen. Sugar is controlled Patient remains on Solu-Medrol intravenously Pulmonary input is appreciated 08/24/2019 pt is still dyspeic with persistant expirotory wheezing , similar to yesterday with no much improvement in his condition , recycling tech added zithromax and perforomist to his treatment regimen while keep monitoring pt , pt is not ready to be discharged yet robitussin is also added to relieve pt coughing spells. vitals are stable though and he is saturating 94% on room air 08/25/2019 Patient awake but is still have symptoms of dyspnea and expiratory wheezing despite his been on steroids. Pulmonary the case and they are increasing the dose of steroids. He is on her for most His vitals are stable and Herrman saturating 95% on room air. His sodium improved to 1:30, creatinine 0.4, sugars controlled. EKG showing normal sinus rhythm with sinus arrhythmia, with a rate of 84. No significant ST-T changes. His currently on Solu-Medrol 60 mg every 6 hours is also on formoterol and Zithromax is been added yesterday. 08/26/2019 patient still have significant wheezing and limited air expiratory infarct. Patient evaluated by recycling tech today and he does not think he is ready for discharge today and they agree with that. We'll continue with same treatment and add incentive spirometry 08/27/2019 Patient still with a significant wheezing, he is able to walk with exertional dyspnea. He still has coughing. His Robitussin dose was increased. Also will repeat chest x-ray for follow-up Vitals are stable and he is using incentive spirometry, is currently on Solu- Medrol, Zithromax, Perforomist and Pulmicort. 08/28/2019 Patient still wheezing with no improvement. He still coughing and he is getting some abdominal discomfort from the cough, he is already on Robitussin, Tessalon is been added today Pulmonary on the case and they recommended bronchoscopy tomorrow 08/29/2019 Patient has no improvement in his wheezing since he came into the hospital despite being on the steroids, antibiotics, bronchodilators and other treatment. Pulmonary team are planning to do bronchoscopy with BAL this morning Objective - Vital Signs Vital signs: Vital Signs Temp 97.9 F 08/29/19 02:55 Pulse 65 08/29/19 08:18 Resp 16 08/29/19 02:55 BP 116/62 08/29/19 02:55 Pulse Ox 96 08/29/19 02:55 Intake & Output 08/28/19 08/29/19 08/29/19 18:59 06:59 18:59 Intake Total 110 Output Total 30 Balance -30 110 Intake: Oral 110 Output: Gastric Drainage 30 Other: Voiding Method Toilet Toilet # Voids 2 - Exam GENERAL: The patient is alert and oriented x3, not in any acute distress. Well developed, well nourished. HEENT: Pupils are round and equally reacting to light. EOMI. No scleral icterus. No conjunctival pallor. Normocephalic, atraumatic. No pharyngeal erythema. No thyromegaly. CARDIOVASCULAR: S1 and S2 present. No murmurs, rubs, or gallops. PULMONARY: Chest is clear to auscultation,. Significant expiratory wheezing on both sides- ABDOMEN: Soft, nontender, nondistended, normoactive bowel sounds. No palpable organomegaly. MUSCULOSKELETAL: No joint swelling or deformity. EXTREMITIES: No cyanosis, clubbing, or pedal edema. NEUROLOGICAL: Gross neurological examination did not reveal any focal deficits. SKIN: No rashes. no petechiae. - Labs CBC & Chem 7: 08/22/19 15:07 08/26/19 07:50 Labs: Abnormal Lab Results - Last 24 Hours (Table) 08/28/19 08/28/19 08/28/19 Range/Units 11:24 16:47 19:57 POC Glucose (mg/dL) 121 H 177 H 112 H (75-99) mg/dL 08/29/19 Range/Units 07:23 POC Glucose (mg/dL) 139 H (75-99) mg/dL Assessment and Plan Assessment: Acute COPD exacerbation Bilateral apical pleural thickening glaucoma Macular degeneration Plan: This is a pleasant 64 years old male who presents with COPD exacerbation and has bilateral apical pleural thickening. Continue with steroids, bronchodilators and oxygen as needed. zithromax and perforomist are added by pulmonary team Labs and medication were reviewed.. Continue same treatment. Continue with symptomatic treatment. Resume home medication. Monitor lytes and vitals. DVT and GI prophylaxis. Further recommendations of the clinical course of the patient DVT prophylaxis: Subcutaneous heparin GI Prophylaxis: Pepcid
--- NOTE | 2019-08-29 11:34 | P.PN ---
Subjective Progress Note Date: 08/29/19 Principal diagnosis: Acute exacerbation of chronic obstructive pulmonary disease The patient is seen today 08/28/2019 in follow-up on the regular medical floor. He is awake and alert in no acute distress. He is still somewhat bronchospastic and wheezy. Stating not much improved over the past couple of days. He remains on IV Solu-Medrol bronchodilators and antibiotics. Chest x-ray revealed no acute infiltrate. Maintaining good O2 saturations in the mid 90s on room air. She's afebrile. Hemodynamically stable. The patient is seen today 08/29/2019 in follow-up on the regular medical floor. He is currently sitting up in a chair at the bedside. Awake and alert in no acute distress. States he is breathing about the same. No significant improvement. Continues to be bronchospastic and wheezy. Maintained on DuoNeb inhalations, Pulmicort and Perforomist inhalations, IV Solu-Medrol. Maintaining O2 saturations in the 90s on room air. He's been afebrile. Hemodynamically stable. Plan is for bronchoscopy with BAL today. Objective - Vital Signs Vital signs: Vital Signs Temp 98.1 F 08/29/19 07:00 Pulse 66 08/29/19 08:40 Resp 17 08/29/19 07:00 BP 133/75 08/29/19 07:00 Pulse Ox 97 08/29/19 07:00 Intake & Output 08/28/19 08/29/19 08/29/19 18:59 06:59 18:59 Intake Total 110 Output Total 30 Balance -30 110 Intake: Oral 110 Output: Gastric Drainage 30 Other: Voiding Method Toilet Toilet Toilet # Voids 2 - Exam GENERAL EXAM: Alert, pleasant 64-year-old gentleman, up in a chair at the bedside, on room air, comfortable in no apparent distress. HEAD: Normocephalic. EYES: Normal reaction of pupils, equal size. NOSE: Clear with pink turbinates. THROAT: No erythema or exudates. NECK: No masses, no JVD. CHEST: No chest wall deformity. LUNGS: Equal air entry with bilateral end expiratory wheeze, diminished. CVS: S1 and S2 normal with no audible murmur, regular rhythm. ABDOMEN: No hepatosplenomegaly, normal bowel sounds, no guarding or rigidity. SPINE: No scoliosis or deformity SKIN: No rashes CENTRAL NERVOUS SYSTEM: No focal deficits, tone is normal in all 4 extremities. EXTREMITIES: There is no peripheral edema. No clubbing, no cyanosis. Peripheral pulses are intact. - Labs CBC & Chem 7: 08/22/19 15:07 08/26/19 07:50 Labs: Abnormal Lab Results - Last 24 Hours (Table) 08/28/19 08/28/19 08/29/19 Range/Units 16:47 19:57 07:23 POC Glucose (mg/dL) 177 H 112 H 139 H (75-99) mg/dL Assessment and Plan Assessment: Acute exacerbation of COPD, slow improvement Acute purulent tracheobronchitis and some component of hemoptysis secondary to bronchitis. Resolved. Acute hemoptysis. Resolved Chronic biapical pulmonary scarring New onset atrial fibrillation upon his admission, presently in normal sinus rhythm. History of C. difficile colitis. Plan: The patient was seen and evaluated by Dr. Watkins Planning for a bronchoscopy with BAL today Continue current treatment plan Increase his activity as tolerated We'll continue to follow I, the cosigning physician, performed a history & physical examination of the patient. Lungs sounds with bilateral end expiratory wheeze, diminished. Maintaining good O2 saturations in the 90s on room air. I discussed the assessment and plan of care with my nurse practitioner, Brooke Apodaca. I attest to the above note as dictated by her.
[2019-08-29 11:40] LABS: Glucose,Whole Blood 128 mg/dL (75-99)
[2019-08-29] MEDS ORDERED: fentaNYL (PF) 50 MCG/ML 2 ML AMP ONE (12:16)
[2019-08-29] MEDS ORDERED: MIDAZOLAM 2 MG/2 ML VIAL ONE (12:16)
[2019-08-29] MEDS ORDERED: PROPOFOL 10 MG/ML 20 ML VIAL IV ONE (12:16)
[2019-08-29 12:19] VITALS: BMI 25.7
[2019-08-29] MEDS ORDERED: SODIUM CHLORIDE 0.9% 500 ML 500 ML IV ONE (12:24)
[2019-08-29] MEDS ORDERED: LIDOCAINE 2% INJ 20 MG/ML INTRATRACH ONE (12:27)
[2019-08-29] MEDS: NYSTATIN 100,000 UNIT/ML SUSP 500,000 UNIT/5 ML CUP PO SCH ×3 (14:12→20:45)
[2019-08-29] MEDS: DOXYCYCLINE 100 MG CAP PO SCH ×2 (14:12→20:45)
[2019-08-29] MEDS: FLUCONAZOLE 100 MG TAB PO SCH ×2 (14:12→22:09)
[2019-08-29 16:30] LABS: Glucose,Whole Blood 211 mg/dL (75-99)
--- NOTE | 2019-08-29 17:39 | PCN ---
PROCEDURE NOTE PROCEDURE IN DETAIL: Bronchoscopy and bronchoalveolar lavage. PREOPERATIVE DIAGNOSIS: Acute exacerbation of COPD, persistent cough. POSTOPERATIVE DIAGNOSIS: Acute exacerbation of COPD, persistent cough. ANESTHESIA USED: IV conscious sedation. PROCEDURE: The patient was prepared according to the bronchoscopy protocol. O2 was applied via nasal cannula. The patient was placed in the supine position, we monitored his O2 saturation continuously. Blood pressure was intermittently monitored and cardiac rhythm was continuously monitored. After adequate IV conscious sedation, the patient had a few mL of lidocaine instilled into the right naris, and a flexible bronchoscope was inserted through the right naris to the area of the vocal cords. There was evidence of thrush around the area of the vocal cords, and on the vocal cords. Cheesy looking exudates noted in the area. Then, lidocaine was applied over the vocal cords, and the bronchoscope was advanced further down. Thorough examination was done of the right upper lobe, right middle lobe, right lower lobe, left upper lobe lingula and left lower lobe. There was evidence of tenacious thick secretion purulent noted in the airways. Lavage was done of all the different lobes, and the fluid obtained was sent for different diagnostic studies. The procedure was well tolerated, no evidence of any immediate complications. MMODL / IJN: [id number] /
[2019-08-29 20:27] LABS: Glucose,Whole Blood 110 mg/dL (75-99)
[2019-08-29] MEDS: LATANOPROST 0.005% OPHTH DROPS 2.5 ML BTL LEFT EYE SCH (20:40)
[2019-08-30] MEDS: methylPREDNISolone SOD SUCCI 125 MG/2 ML VIAL IV SCH ×5 (00:35→23:48)
[2019-08-30 07:08] LABS: Glucose,Whole Blood 145 mg/dL (75-99)
[2019-08-30] MEDS: BUDESONIDE 1 MG/2 ML NEBU INHALATION SCH ×2 (07:46→20:07)
[2019-08-30] MEDS: IPRATROPIUM-ALBUTEROL 3 ML NEB INHALATION SCH ×4 (07:46→20:09)
[2019-08-30] MEDS: FORMOTEROL FUMARATE 20 MCG/2 ML NEBU INHALATION SCH ×2 (07:46→20:09)
[2019-08-30] MEDS: HEPARIN SODIUM,PORCINE 5,000 UNIT/ML 1 ML VIAL SQ SCH ×2 (08:55→20:59)
[2019-08-30] MEDS: NYSTATIN 100,000 UNIT/ML SUSP 500,000 UNIT/5 ML CUP PO SCH ×4 (08:56→20:59)
[2019-08-30] MEDS: INSULIN ASPART (NovoLOG) 100 UNIT/ML VIAL SQ SCH ×4 (08:56→20:58)
[2019-08-30] MEDS: FLUCONAZOLE 100 MG TAB PO SCH ×2 (08:56→20:59)
[2019-08-30] MEDS: DOXYCYCLINE 100 MG CAP PO SCH ×2 (08:56→20:59)
[2019-08-30] MEDS: FAMOTIDINE 20 MG TAB PO SCH ×2 (08:56→20:59)
[2019-08-30 10:21] LABS: African American GFR (CKD) >90 (>60 ml/min/1.73 sqM); Anion Gap 8 mmol/L; Blood Urea Nitrogen 15 mg/dL (9-20); Calcium 8.2 mg/dL (8.4-10.2); Carbon Dioxide 28 mmol/L (22-30); Chloride 93 mmol/L (98-107); Glucose 198 mg/dL (74-99); Magnesium 2.3 mg/dL (1.6-2.3); Non-African American GFR(CKD) >90 (>60 ml/min/1.73 sqM); Potassium 3.7 mmol/L (3.5-5.1); Sodium 129 mmol/L (137-145)
[2019-08-30 11:34] LABS: Glucose,Whole Blood 86 mg/dL (75-99)
--- NOTE | 2019-08-30 13:14 | P.PN ---
Subjective Progress Note Date: 08/30/19 Principal diagnosis: Acute exacerbation of chronic obstructive pulmonary disease The patient is seen today 08/28/2019 in follow-up on the regular medical floor. He is awake and alert in no acute distress. He is still somewhat bronchospastic and wheezy. Stating not much improved over the past couple of days. He remains on IV Solu-Medrol bronchodilators and antibiotics. Chest x-ray revealed no acute infiltrate. Maintaining good O2 saturations in the mid 90s on room air. She's afebrile. Hemodynamically stable. The patient is seen today 08/29/2019 in follow-up on the regular medical floor. He is currently sitting up in a chair at the bedside. Awake and alert in no acute distress. States he is breathing about the same. No significant improvement. Continues to be bronchospastic and wheezy. Maintained on DuoNeb inhalations, Pulmicort and Perforomist inhalations, IV Solu-Medrol. Maintaining O2 saturations in the 90s on room air. He's been afebrile. Hemodynamically stable. Plan is for bronchoscopy with BAL today. The patient is seen today 08/30/2019 follow-up on the regular medical floor. He is awake and alert in no acute distress. Maintaining O2 saturations in the 90s on room air. He is afebrile. Hemodynamically stable. Doing better today com pared to yesterday. Sitting up in a chair at the bedside. He did undergo bronchoscopy with BAL and copious amounts of thick secretions were suctioned, also noted oral candidiasis. Cytology and fluid analysis pending. Sodium 129. Potassium 3.7. Creatinine 0.66. Remains on doxycycline, Diflucan, IV Solu- Medrol and bronchodilators. Objective - Vital Signs Vital signs: Vital Signs Temp 98.1 F 08/30/19 07:00 Pulse 77 08/30/19 11:50 Resp 16 08/30/19 07:00 BP 129/80 08/30/19 07:00 Pulse Ox 97 08/30/19 07:00 Intake & Output 08/29/19 08/30/19 08/30/19 18:59 06:59 18:59 Intake Total 200 Balance 200 Weight 83.915 kg Intake: IV 200 Other: Voiding Method Toilet Toilet # Voids 1 1 - Exam GENERAL EXAM: Alert, pleasant 64-year-old gentleman, up in a chair at the bedside, on room air, comfortable in no apparent distress. HEAD: Normocephalic. EYES: Normal reaction of pupils, equal size. NOSE: Clear with pink turbinates. THROAT: No erythema or exudates. NECK: No masses, no JVD. CHEST: No chest wall deformity. LUNGS: Equal air entry with bilateral end expiratory wheeze, diminished. CVS: S1 and S2 normal with no audible murmur, regular rhythm. ABDOMEN: No hepatosplenomegaly, normal bowel sounds, no guarding or rigidity. SPINE: No scoliosis or deformity SKIN: No rashes CENTRAL NERVOUS SYSTEM: No focal deficits, tone is normal in all 4 extremities. EXTREMITIES: There is no peripheral edema. No clubbing, no cyanosis. Per ipheral pulses are intact. - Labs CBC & Chem 7: 08/22/19 15:07 08/30/19 09:20 Labs: Abnormal Lab Results - Last 24 Hours (Table) 08/29/19 08/29/19 08/30/19 Range/Units 16:29 20:26 07:07 Sodium (137-145) mmol/L Chloride (98-107) mmol/L Glucose (74-99) mg/dL POC Glucose (mg/dL) 211 H 110 H 145 H (75-99) mg/dL Calcium (8.4-10.2) mg/dL 08/30/19 Range/Units 09:20 Sodium 129 L (137-145) mmol/L Chloride 93 L (98-107) mmol/L Glucose 198 H (74-99) mg/dL POC Glucose (mg/dL) (75-99) mg/dL Calcium 8.2 L (8.4-10.2) mg/dL Assessment and Plan Assessment: Acute exacerbation of COPD, slow improvement, status post bronchoscopy with BAL on 08/29/2019 Acute purulent tracheobronchitis and some component of hemoptysis secondary to bronchitis. Resolved. Acute hemoptysis. Resolved Chronic biapical pulmonary scarring New onset atrial fibrillation upon his admission, presently in normal sinus rhythm. History of C. difficile colitis. Plan: The patient was seen and evaluated by Dr. Watkins Bronchoscopy with BAL performed yesterday and cultures pending Continue the current treatment plan Increase his activity as tolerated We'll continue to follow Probable discharge in the a.m. I, the cosigning physician, performed a history & physical examination of the patient. Lungs sounds with bilateral end expiratory wheeze, diminished. Maintaining good O2 saturations in the 90s on room air. I discussed the assessment and plan of care with my nurse practitioner, Brooke Apodaca. I attest to the above note as dictated by her.
--- NOTE | 2019-08-30 14:19 | P.PN ---
Subjective This is a pleasant 64 years old male with past medical history of COPD, and glaucoma. He follows up with Dr. Noa Lau of Dr[facility]ich[facility]. He does not see a cognos developer. He was diagnosed with COPD about 3 months ago when he was in the hospital he did used to smoke and quit 2 years ago. He used to smoke half pack per day for 55 years. He denies alcohol or illicit tracts. This time he presents with worsening dyspnea for about 2 days, not relieved by his inhaler. He has some cough but no phlegm. He has mild central chest pain that is worse with coughing. He uses only inhaler at home, besides, eyedrops and some vitamins for his macular degeneration Vitas looks stable. Labs show an unremarkable CBC, BMP and liver enzymes. Chest x-ray showing COPD with biapical pleural thickening EKG: Normal sinus rhythm with no significant ST-T changes. QTC is 510 08/23/2019 Patient still dyspneic, he has extensive coughing with little blood in it, however is not in respiratory distress, his saturations in the 90s on 2 L oxygen. No chest pain Vitals stable and saturating 96% on 2 L oxygen. Sugar is controlled Patient remains on Solu-Medrol intravenously Pulmonary input is appreciated 08/24/2019 pt is still dyspeic with persistant expirotory wheezing , similar to yesterday with no much improvement in his condition , cognos developer added zithromax and perforomist to his treatment regimen while keep monitoring pt , pt is not ready to be discharged yet robitussin is also added to relieve pt coughing spells. vitals are stable though and he is saturating 94% on room air 08/25/2019 Patient awake but is still have symptoms of dyspnea and expiratory wheezing despite his been on steroids. Pulmonary the case and they are increasing the dose of steroids. He is on her for most His vitals are stable and Herrman saturating 95% on room air. His sodium improved to 1:30, creatinine 0.4, sugars controlled. EKG showing normal sinus rhythm with sinus arrhythmia, with a rate of 84. No significant ST-T changes. His currently on Solu-Medrol 60 mg every 6 hours is also on formoterol and Zithromax is been added yesterday. 08/26/2019 patient still have significant wheezing and limited air expiratory infarct. Patient evaluated by cognos developer today and he does not think he is ready for discharge today and they agree with that. We'll continue with same treatment and add incentive spirometry 08/27/2019 Patient still with a significant wheezing, he is able to walk with exertional dyspnea. He still has coughing. His Robitussin dose was increased. Also will repeat chest x-ray for follow-up Vitals are stable and he is using incentive spirometry, is currently on Solu- Medrol, Zithromax, Perforomist and Pulmicort. 08/28/2019 Patient still wheezing with no improvement. He still coughing and he is getting some abdominal discomfort from the cough, he is already on Robitussin, Tessalon is been added today Pulmonary on the case and they recommended bronchoscopy tomorrow 08/29/2019 Patient has no improvement in his wheezing since he came into the hospital despite being on the steroids, antibiotics, bronchodilators and other treatment. Pulmonary team are planning to do bronchoscopy with BAL this morning 08/30/2019 Patient is status post bronchoscopy yesterday and his breathing is easier today and on exam he has less wheezing. Bronchoscopy study are still pending from the vaginal where there is a lot of tenacious secretions been taken out, also thrush this founded are at his vocal cords and he was started on fluconazole. However today he is complaining of from periumbilical and left lower quadrant tenderness with possible some rebound tenderness, his abdomen mildly distended. We'll order CT of the abdomen and pelvis and call for surgery consult. Objective - Vital Signs Vital signs: Vital Signs Temp 98.1 F 08/30/19 07:00 Pulse 77 08/30/19 11:50 Resp 16 08/30/19 07:00 BP 129/80 08/30/19 07:00 Pulse Ox 97 08/30/19 07:00 Intake & Output 08/29/19 08/30/19 08/30/19 18:59 06:59 18:59 Intake Total 200 Balance 200 Weight 83.915 kg Intake: IV 200 Other: Voiding Method Toilet Toilet # Voids 1 1 3 - Exam GENERAL: The patient is alert and oriented x3, not in any acute distress. Well developed, well nourished. HEENT: Pupils are round and equally reacting to light. EOMI. No scleral icterus. No conjunctival pallor. Normocephalic, atraumatic. No pharyngeal erythema. No thyromegaly. CARDIOVASCULAR: S1 and S2 present. No murmurs, rubs, or gallops. PULMONARY: Chest is clear to auscultation,. Significant expiratory wheezing on both sides- ABDOMEN: Soft, nontender, nondistended, normoactive bowel sounds. No palpable organomegaly. MUSCULOSKELETAL: No joint swelling or deformity. EXTREMITIES: No cyanosis, clubbing, or pedal edema. NEUROLOGICAL: Gross neurological examination did not reveal any focal deficits. SKIN: No rashes. no petechiae. - Labs CBC & Chem 7: 08/22/19 15:07 08/30/19 09:20 Labs: Abnormal Lab Results - Last 24 Hours (Table) 08/29/19 08/29/19 08/30/19 Range/Units 16:29 20:26 07:07 Sodium (137-145) mmol/L Chloride (98-107) mmol/L Glucose (74-99) mg/dL POC Glucose (mg/dL) 211 H 110 H 145 H (75-99) mg/dL Calcium (8.4-10.2) mg/dL 08/30/19 Range/Units 09:20 Sodium 129 L (137-145) mmol/L Chloride 93 L (98-107) mmol/L Glucose 198 H (74-99) mg/dL POC Glucose (mg/dL) (75-99) mg/dL Calcium 8.2 L (8.4-10.2) mg/dL Assessment and Plan Assessment: Acute COPD exacerbation fungal infection around the vocal cords Periumbilical pain and tenderness Bilateral apical pleural thickening glaucoma Macular degeneration Plan: This is a pleasant 64 years old male who presents with COPD exacerbation and has bilateral apical pleural thickening. Continue with steroids, bronchodilators and oxygen as needed. zithromax and perforomist are added by pulmonary team Continue with fluconazole added by pulmonary team. We'll order computed tomography scan of the abdomen and surgical consult for his abdominal pain and tenderness Labs and medication were reviewed.. Continue same treatment. Continue with symptomatic treatment. Resume home medication. Monitor lytes and vitals. DVT and GI prophylaxis. Further recommendations of the clinical course of the patient DVT prophylaxis: Subcutaneous heparin GI Prophylaxis: Pepcid
[2019-08-30] MEDS: IOPAMIDOL CONTRAST (ORAL USE) VIAL PO PRN ×2 (14:33→15:10)
[2019-08-30 16:29] LABS: Glucose,Whole Blood 147 mg/dL (75-99)
--- NOTE | 2019-08-30 16:35 | CT ---
EXAMINATION TYPE: CT abdomen pelvis w con DATE OF EXAM: 08/30/2019 COMPARISON: 10/31/2017 HISTORY: Left lower abdominal pain. CT DLP: 1192.1 mGycm Automated exposure control for dose reduction was used. CONTRAST: Performed with IV Contrast, patient injected with 100ml mL of Isovue 300. There is oral contrast. Lung bases are clear of consolidation. There is no pleural effusion. There is small area of subsegmen yakelin atelectasis left lung base. Heart size is normal. There is no pericardial effusion. Liver shows n o focal defect. Gallbladder is contracted. Spleen appears normal. There is no pancreatic mass. The st omach is intact. There is some wall thickening of the posterior right side of the gastric fundus. Thi s measures up to 2 cm in thickness. There is no adrenal mass. Kidneys show satisfactory contrast opacification. There is no hydronephrosi s. Ureters are not dilated. The delayed images show normal renal excretion. There is no retroperitone al adenopathy. Abdominal aorta is atheromatous. Bladder distends smoothly. There is no inguinal herni a. There is no free fluid in the pelvis. Appendix is not seen. There is no sign of thickened appendix . Small bowel appears fairly normal and shows no sign of an obstruction. There is no mesenteric edema . There is no ascites or free air. There is subcutaneous edema over the lumbar spine. Lumbar vertebra have fairly normal alignment. There is no compression fracture. There is a minimal de generative first-degree L4-5 spondylolisthesis. The bony pelvis appears intact. There is subcutaneous edema around the lateral abdomen. IMPRESSION: Gastric wall thickening at the fundus and gastric mass is possible. Follow-up recommended. This is a change compared to old exam. There is clearing of the dilated small bowel loops compared to old exam.
[2019-08-30 20:30] LABS: Glucose,Whole Blood 142 mg/dL (75-99)
[2019-08-30] MEDS: LATANOPROST 0.005% OPHTH DROPS 2.5 ML BTL LEFT EYE SCH (20:58)
[2019-08-30] MEDS: PANTOPRAZOLE 40 MG/10 ML VIAL IVP SCH (23:48)
[2019-08-31] MEDS: methylPREDNISolone SOD SUCCI 125 MG/2 ML VIAL IV SCH ×3 (05:44→16:51)
[2019-08-31 07:04] LABS: Glucose,Whole Blood 132 mg/dL (75-99)
[2019-08-31] MEDS: BUDESONIDE 1 MG/2 ML NEBU INHALATION SCH ×2 (07:34→19:18)
[2019-08-31] MEDS: IPRATROPIUM-ALBUTEROL 3 ML NEB INHALATION SCH ×4 (07:34→19:18)
[2019-08-31] MEDS: FORMOTEROL FUMARATE 20 MCG/2 ML NEBU INHALATION SCH ×2 (07:34→19:18)
--- NOTE | 2019-08-31 08:34 | P.PN ---
Subjective This is a pleasant 64 years old male with past medical history of COPD, and glaucoma. He follows up with Dr. Noa Lau of Dr[facility]ich[facility]. He does not see a differential specialist. He was diagnosed with COPD about 3 months ago when he was in the hospital he did used to smoke and quit 2 years ago. He used to smoke half pack per day for 55 years. He denies alcohol or illicit tracts. This time he presents with worsening dyspnea for about 2 days, not relieved by his inhaler. He has some cough but no phlegm. He has mild central chest pain that is worse with coughing. He uses only inhaler at home, besides, eyedrops and some vitamins for his macular degeneration Vitas looks stable. Labs show an unremarkable CBC, BMP and liver enzymes. Chest x-ray showing COPD with biapical pleural thickening EKG: Normal sinus rhythm with no significant ST-T changes. QTC is 510 08/23/2019 Patient still dyspneic, he has extensive coughing with little blood in it, however is not in respiratory distress, his saturations in the 90s on 2 L oxygen. No chest pain Vitals stable and saturating 96% on 2 L oxygen. Sugar is controlled Patient remains on Solu-Medrol intravenously Pulmonary input is appreciated 08/24/2019 pt is still dyspeic with persistant expirotory wheezing , similar to yesterday with no much improvement in his condition , differential specialist added zithromax and perforomist to his treatment regimen while keep monitoring pt , pt is not ready to be discharged yet robitussin is also added to relieve pt coughing spells. vitals are stable though and he is saturating 94% on room air 08/25/2019 Patient awake but is still have symptoms of dyspnea and expiratory wheezing despite his been on steroids. Pulmonary the case and they are increasing the dose of steroids. He is on her for most His vitals are stable and Herrman saturating 95% on room air. His sodium improved to 1:30, creatinine 0.4, sugars controlled. EKG showing normal sinus rhythm with sinus arrhythmia, with a rate of 84. No significant ST-T changes. His currently on Solu-Medrol 60 mg every 6 hours is also on formoterol and Zithromax is been added yesterday. 08/26/2019 patient still have significant wheezing and limited air expiratory infarct. Patient evaluated by differential specialist today and he does not think he is ready for discharge today and they agree with that. We'll continue with same treatment and add incentive spirometry 08/27/2019 Patient still with a significant wheezing, he is able to walk with exertional dyspnea. He still has coughing. His Robitussin dose was increased. Also will repeat chest x-ray for follow-up Vitals are stable and he is using incentive spirometry, is currently on Solu- Medrol, Zithromax, Perforomist and Pulmicort. 08/28/2019 Patient still wheezing with no improvement. He still coughing and he is getting some abdominal discomfort from the cough, he is already on Robitussin, Tessalon is been added today Pulmonary on the case and they recommended bronchoscopy tomorrow 08/29/2019 Patient has no improvement in his wheezing since he came into the hospital despite being on the steroids, antibiotics, bronchodilators and other treatment. Pulmonary team are planning to do bronchoscopy with BAL this morning 08/30/2019 Patient is status post bronchoscopy yesterday and his breathing is easier today and on exam he has less wheezing. Bronchoscopy study are still pending from the vaginal where there is a lot of tenacious secretions been taken out, also thrush this founded are at his vocal cords and he was started on fluconazole. However today he is complaining of from periumbilical and left lower quadrant tenderness with possible some rebound tenderness, his abdomen mildly distended. We'll order CT of the abdomen and pelvis and call for surgery consult. 08/31/2019 Patient still have wheezing although it looks somewhat better than the previous days. Patient already on steroids and bronchodilators is also on fluconazole for thrush around the vocal cord. Other studies from his broncho-alveolar lavage is pending. She'll with epigastric pain and tenderness, could be related to gastric irritation from steroids, CT of the abdomen showing possible stomach mass. Consult GI team Monitor sodium Objective - Vital Signs Vital signs: Vital Signs Temp 98.7 F 08/31/19 01:36 Pulse 84 08/31/19 07:55 Resp 17 08/31/19 01:36 BP 132/74 08/31/19 01:36 Pulse Ox 97 08/31/19 01:36 Intake & Output 08/30/19 08/31/19 08/31/19 18:59 06:59 18:59 Other: Voiding Method Toilet # Voids 3 2 - Exam GENERAL: The patient is alert and oriented x3, not in any acute distress. Well developed, well nourished. HEENT: Pupils are round and equally reacting to light. EOMI. No scleral icterus. No conjunctival pallor. Normocephalic, atraumatic. No pharyngeal erythema. No thyromegaly. CARDIOVASCULAR: S1 and S2 present. No murmurs, rubs, or gallops. PULMONARY: Chest is clear to auscultation,. Significant expiratory wheezing on both sides- ABDOMEN: Soft, nontender, nondistended, normoactive bowel sounds. No palpable organomegaly. MUSCULOSKELETAL: No joint swelling or deformity. EXTREMITIES: No cyanosis, clubbing, or pedal edema. NEUROLOGICAL: Gross neurological examination did not reveal any focal deficits. SKIN: No rashes. no petechiae. - Labs CBC & Chem 7: 08/22/19 15:07 08/30/19 09:20 Labs: Abnormal Lab Results - Last 24 Hours (Table) 08/30/19 08/30/19 08/30/19 Range/Units 09:20 16:28 20:28 Sodium 129 L (137-145) mmol/L Chloride 93 L (98-107) mmol/L Glucose 198 H (74-99) mg/dL POC Glucose (mg/dL) 147 H 142 H (75-99) mg/dL Calcium 8.2 L (8.4-10.2) mg/dL 08/31/19 Range/Units 07:02 Sodium (137-145) mmol/L Chloride (98-107) mmol/L Glucose (74-99) mg/dL POC Glucose (mg/dL) 132 H (75-99) mg/dL Calcium (8.4-10.2) mg/dL Assessment and Plan Assessment: Acute COPD exacerbation fungal infection around the vocal cords Periumbilical pain and tenderness Bilateral apical pleural thickening glaucoma Macular degeneration Plan: This is a pleasant 64 years old male who presents with COPD exacerbation and has bilateral apical pleural thickening. Continue with steroids, bronchodilators and oxygen as needed. zithromax and perforomist are added by pulmonary team Continue with fluconazole added by pulmonary team. We'll order computed tomography scan of the abdomen and surgical consult for his abdominal pain and tenderness Labs and medication were reviewed.. Continue same treatment. Continue with symptomatic treatment. Resume home medication. Monitor lytes and vitals. DVT and GI prophylaxis. Further recommendations of the clinical course of the patient DVT prophylaxis: Subcutaneous heparin GI Prophylaxis: Pepcid
[2019-08-31] MEDS: FLUCONAZOLE 100 MG TAB PO SCH ×2 (08:35→22:17)
[2019-08-31] MEDS: PANTOPRAZOLE 40 MG/10 ML VIAL IVP SCH (08:35)
[2019-08-31] MEDS: INSULIN ASPART (NovoLOG) 100 UNIT/ML VIAL SQ SCH ×4 (08:36→22:17)
[2019-08-31] MEDS: HEPARIN SODIUM,PORCINE 5,000 UNIT/ML 1 ML VIAL SQ SCH ×2 (08:36→22:17)
[2019-08-31] MEDS: NYSTATIN 100,000 UNIT/ML SUSP 500,000 UNIT/5 ML CUP PO SCH ×4 (08:36→22:17)
[2019-08-31] MEDS: DOXYCYCLINE 100 MG CAP PO SCH (08:36)
[2019-08-31 10:06] LABS: African American GFR (CKD) >90 (>60 ml/min/1.73 sqM); Anion Gap 8 mmol/L; Blood Urea Nitrogen 15 mg/dL (9-20); Calcium 8.2 mg/dL (8.4-10.2); Carbon Dioxide 29 mmol/L (22-30); Chloride 91 mmol/L (98-107); Glucose 213 mg/dL (74-99); Non-African American GFR(CKD) >90 (>60 ml/min/1.73 sqM); Potassium 4.2 mmol/L (3.5-5.1); Sodium 128 mmol/L (137-145)
[2019-08-31 11:28] LABS: Glucose,Whole Blood 147 mg/dL (75-99)
[2019-08-31] MEDS: PIPERACILLIN-TAZOBACTAM 3.375 GM in SODIUM CHLORIDE 0.9% 100 ML IVPB SCH ×2 (12:11→22:17)
--- NOTE | 2019-08-31 12:24 | P.PN ---
Subjective Progress Note Date: 08/31/19 Principal diagnosis: Acute exacerbation of chronic obstructive pulmonary disease The patient is seen today 08/28/2019 in follow-up on the regular medical floor. He is awake and alert in no acute distress. He is still somewhat bronchospastic and wheezy. Stating not much improved over the past couple of days. He remains on IV Solu-Medrol bronchodilators and antibiotics. Chest x-ray revealed no acute infiltrate. Maintaining good O2 saturations in the mid 90s on room air. She's afebrile. Hemodynamically stable. The patient is seen today 08/29/2019 in follow-up on the regular medical floor. He is currently sitting up in a chair at the bedside. Awake and alert in no acute distress. States he is breathing about the same. No significant improvement. Continues to be bronchospastic and wheezy. Maintained on DuoNeb inhalations, Pulmicort and Perforomist inhalations, IV Solu-Medrol. Maintaining O2 saturations in the 90s on room air. He's been afebrile. Hemodynamically stable. Plan is for bronchoscopy with BAL today. The patient is seen today 08/30/2019 follow-up on the regular medical floor. He is awake and alert in no acute distress. Maintaining O2 saturations in the 90s on room air. He is afebrile. Hemodynamically stable. Doing better today com pared to yesterday. Sitting up in a chair at the bedside. He did undergo bronchoscopy with BAL and copious amounts of thick secretions were suctioned, also noted oral candidiasis. Cytology and fluid analysis pending. Sodium 129. Potassium 3.7. Creatinine 0.66. Remains on doxycycline, Diflucan, IV Solu- Medrol and bronchodilators. The patient is seen today 08/31/2019 in follow-up on the regular medical floor. He is up ambulating in his room. Feeling better today compared to yesterday. S till somewhat bronchospastic and wheezing. He continues to maintain good O2 saturations in the 90s on room air. He's been afebrile. Hemodynamically stable. Sodium 128. Potassium 4.2. Creatinine 0.60. Remains on doxycycline, Diflucan, IV Solu-Medrol and bronchodilators. Objective - Vital Signs Vital signs: Vital Signs Temp 98.7 F 08/31/19 01:36 Pulse 82 07/05/20 11:09 Resp 17 08/31/19 01:36 BP 132/74 08/31/19 01:36 Pulse Ox 97 08/31/19 01:36 Intake & Output 08/30/19 08/31/19 08/31/19 18:59 06:59 18:59 Other: Voiding Method Toilet # Voids 3 2 - Exam GENERAL EXAM: Alert, pleasant 64-year-old gentleman, up ambulating in room, on room air, comfortable in no apparent distress. HEAD: Normocephalic. EYES: Normal reaction of pupils, equal size. NOSE: Clear with pink turbinates. THROAT: No erythema or exudates. NECK: No masses, no JVD. CHEST: No chest wall deformity. LUNGS: Equal air entry with bilateral end expiratory wheeze, diminished. CVS: S1 and S2 normal with no audible murmur, regular rhythm. ABDOMEN: No hepatosplenomegaly, normal bowel sounds, no guarding or rigidity. SPINE: No scoliosis or deformity SKIN: No rashes CENTRAL NERVOUS SYSTEM: No focal deficits, tone is normal in all 4 extremities. EXTREMITIES: There is no peripheral edema. No clubbing, no cyanosis. Peripheral pulses are intact. - Labs CBC & Chem 7: 08/22/19 15:07 08/31/19 09:13 Labs: Abnormal Lab Results - Last 24 Hours (Table) 08/30/19 08/30/19 08/31/19 Range/Units 16:28 20:28 07:02 Sodium (137-145) mmol/L Chloride (98-107) mmol/L Creatinine (0.66-1.25) mg/dL Glucose (74-99) mg/dL POC Glucose (mg/dL) 147 H 142 H 132 H (75-99) mg/dL Calcium (8.4-10.2) mg/dL 08/31/19 08/31/19 Range/Units 09:13 11:25 Sodium 128 L (137-145) mmol/L Chloride 91 L (98-107) mmol/L Creatinine 0.60 L (0.66-1.25) mg/dL Glucose 213 H (74-99) mg/dL POC Glucose (mg/dL) 147 H (75-99) mg/dL Calcium 8.2 L (8.4-10.2) mg/dL Assessment and Plan Assessment: Acute exacerbation of COPD, slow improvement, status post bronchoscopy with BAL on 08/29/2019 Acute purulent tracheobronchitis and some component of hemoptysis secondary to bronchitis. Resolved. Acute hemoptysis. Resolved Chronic biapical pulmonary scarring New onset atrial fibrillation upon his admission, presently in normal sinus rhythm. History of C. difficile colitis. Plan: The patient was seen and evaluated by Dr. Watkins The patient has been slow to progress Continue bronchodilators and Solu-Medrol We'll discontinue doxycycline and add Zosyn Bronchoscopy cultures pending We'll continue to follow I, the cosigning physician, performed a history & physical examination of the patient. Lungs sounds with bilateral end expiratory wheeze, diminished. Maintaining good O2 saturations in the 90s on room air. I discussed the assessment and plan of care with my nurse practitioner, Brooke Apodaca. I attest to the above note as dictated by her.
[2019-08-31 16:18] LABS: Glucose,Whole Blood 199 mg/dL (75-99)
--- NOTE | 2019-08-31 17:38 | P.CONS ---
History of Present Illness - Reason for Consult Consult date: 08/31/19 Abnormal computed tomography scan abdomen, rule out gastric mass Requesting physician: Luan E Sheet - Chief Complaint Shortness of breath - History of Present Illness 64-year-old male with a medical history significant for COPD and glaucoma and a prior history of tobacco abuse who presented to 2 worsening shortness of breath. The patient is currently receiving treatment with steroids, antibiotics and bronchodilators for treatment of acute exacerbation of his underlying COPD. He did undergo bronchoscopy during his hospitalization. The patient had complained of some persistent epigastric abdominal pain. He reports the pain as sharp and in the epigastric region of his abdomen worse with movement and palpation. He does report a remote history of peptic ulcer disease many years ago but denies ever undergoing EGD or colonoscopy. He does use ibuprofen at home but reports that this is at most a few times per week. He denies any change in bowel movements reporting that they are daily and normal in color and caliber with no signs or symptoms of GI bleeding. Laboratory evaluation significant for a WBC 7.9, hemoglobin 15.4, pleasant count 204,000. Due to the patient's complaints of abdominal pain computed tomography scan of the abdomen was performed in e valuation with findings of wall thickening of the fundus of the stomach with gastric mass not excluded. Review of Systems REVIEW OF SYSTEMS: CONSTITUTIONAL: Denies any fevers, chills, weight change or fatigue. CARDIOVASCULAR: Denies any chest pain, palpitations high or low blood pressures RESPIRATORY: Presented with complaints of shortness of breath and cough with no hemoptysis noted. He does report breathing is improved. GENITOURINARY: No dysuria or hematuria. MUSCULOSKELETAL: No weakness reported. SKIN: Denies any new rashes or lesions, jaundice or pallor. PSYCHIATRIC: Denies any depression or anxiety. NEUROLOGY: Denies headache, denies any new focal deficits. EARS/NOSE/THROAT: No recent hearing change, congestion, nasal discharge or sore throat. EYES: No pain in eyes, discharge or change in vision. GASTROINTESTINAL: As per HPI. Past Medical History Past Medical History: No Reported History, COPD Additional Past Medical History / Comment(s): glaucoma History of Any Multi-Drug Resistant Organisms: None Reported Past Surgical History: Joint Replacement Additional Past Surgical History / Comment(s): LT SHOULDER sx in 2009 Past Psychological History: No Psychological Hx Reported Smoking Status: Former smoker Past Alcohol Use History: Occasional Additional Past Alcohol Use History / Comment(s): patient says he smoked for 45 years but quit 3 months ago. Drinks alcohol occasionally. Says a six pack lasts him about a month. Lives with daughter and her significant other. Past Drug Use History: None Reported - Past Family History Daughter(s) Family Medical History: No Reported History Medications and Allergies Home Medications Medication Instructions Recorded Confirmed Type Latanoprost [Xalatan 0.005%] 1 drop LEFT EYE HS 10/31/17 08/22/19 History Albuterol Inhaler [Ventolin Hfa 1 puff INHALATION RT-Q6H PRN 08/22/19 08/22/19 History Inhaler] Vit C/E/Zn/Coppr/Lutein/Zeaxan 1 tab PO DAILY 08/22/19 08/22/19 History [Preservision Areds 2 Softgel] Allergies Allergy/AdvReac Type Severity Reaction Status Date / Time aspirin Allergy Rash/Hives Verified 08/22/19 16:31 Physical Exam Vitals: Vital Signs Temp Pulse Pulse Resp BP BP Pulse Ox 08/31/19 07:55 84 08/31/19 07:45 80 08/31/19 07:44 80 08/31/19 07:34 80 08/31/19 01:36 98.7 F 67 17 132/74 97 08/30/19 20:30 88 08/30/19 20:15 90 08/30/19 20:14 84 08/30/19 20:09 84 08/30/19 19:28 98.5 F 75 14 124/67 96 08/30/19 15:51 88 08/30/19 15:43 84 08/30/19 14:53 97.6 F 86 17 128/74 98 08/30/19 11:50 77 08/30/19 11:39 74 Intake and Output 08/30/19 08/31/19 08/31/19 22:59 06:59 14:59 Other: Voiding Method Toilet Toilet # Voids 1 2 On physical examination, patient appears comfortable in no apparent distress. HEAD: Normocephalic, atraumatic. EYES: No scleral icterus. No conjunctival injection. MOUTH: No lesions, tongue midline. NECK: Trachea midline, no gross abnormalities. CHEST: Decreased air entry in all lung malagon. HEART: Regular rate and rhythm. ABDOMEN: Soft, mildly tender to palpation in the epigastric region of his abdomen. Bowel sounds are positive. No organomegaly. No guarding or rigidity. EXTREMITIES: No pedal edema. SKIN: No rashes, no jaundice. NEUROLOGIC: Alert and oriented x3. No focal deficits. Results CBC & Chem 7: 08/22/19 15:07 08/31/19 09:13 Labs: Abnormal Lab Results - Last 24 Hours (Table) 08/30/19 08/30/19 08/30/19 Range/Units 09:20 16:28 20:28 Sodium 129 L (137-145) mmol/L Chloride 93 L (98-107) mmol/L Glucose 198 H (74-99) mg/dL POC Glucose (mg/dL) 147 H 142 H (75-99) mg/dL Calcium 8.2 L (8.4-10.2) mg/dL 08/31/19 Range/Units 07:02 Sodium (137-145) mmol/L Chloride (98-107) mmol/L Glucose (74-99) mg/dL POC Glucose (mg/dL) 132 H (75-99) mg/dL Calcium (8.4-10.2) mg/dL CT scan - abdomen: report reviewed (Computed tomography scan of the abdomen with findings of thickening of the fundus of the stomach with gastric mass not excluded.) Assessment and Plan (1) Abnormal CT of the abdomen Narrative/Plan: 64-year-old male with multiple medical comorbidities including prior tobacco abuse and COPD who presented to the hospital for evaluation of worsening shortness of breath. Currently being treated for exacerbation of his COPD. The patient has complained of persistent sharp epigastric abdominal pain and computed tomography scan of the abdomen was performed in evaluation with findings of gastric wall thickening of the fundus with a gastric mass not excluded. Unclear etiology, may be related to gastritis, gastric motility, underlying gastric mass or other etiology. Current Visit: Yes Status: Acute Code(s): R93.5 - ABN FINDINGS ON DX IMAGING OF ABD REGIONS, INC RETROPERITON SNOMED Code(s): 93613213301115335 (2) Abdominal pain Current Visit: No Status: Acute Code(s): R10.9 - UNSPECIFIED ABDOMINAL PAIN SNOMED Code(s): 02797219 Plan: Supportive care Okay for diet Nothing by mouth after midnight Continue Protonix therapy Plan for EGD tomorrow for further evaluation and to rule out gastric mass Thank you for allowing us to participate in the care of the patient we will continue to follow
[2019-08-31 20:29] LABS: Glucose,Whole Blood 142 mg/dL (75-99)
[2019-08-31] MEDS: LATANOPROST 0.005% OPHTH DROPS 2.5 ML BTL LEFT EYE SCH (22:18)
[2019-08-31] MEDS: IPRATROPIUM-ALBUTEROL 3 ML NEB INHALATION PRN (23:10)
[2019-09-01] MEDS: methylPREDNISolone SOD SUCCI 125 MG/2 ML VIAL IV SCH ×5 (00:43→23:06)
[2019-09-01] MEDS: [UNRECOGNIZED DRUG - OTHER] PO SCH ×3 (00:44→21:29)
[2019-09-01] MEDS: PIPERACILLIN-TAZOBACTAM 3.375 GM in SODIUM CHLORIDE 0.9% 100 ML IVPB SCH ×3 (05:36→21:29)
[2019-09-01 06:39] LABS: Glucose,Whole Blood 144 mg/dL (75-99)
[2019-09-01] MEDS: INSULIN ASPART (NovoLOG) 100 UNIT/ML VIAL SQ SCH ×4 (06:52→21:19)
[2019-09-01] MEDS: IPRATROPIUM-ALBUTEROL 3 ML NEB INHALATION SCH ×4 (07:45→20:04)
[2019-09-01] MEDS: BUDESONIDE 1 MG/2 ML NEBU INHALATION SCH ×2 (07:45→20:04)
[2019-09-01] MEDS: FORMOTEROL FUMARATE 20 MCG/2 ML NEBU INHALATION SCH ×2 (07:45→20:18)
[2019-09-01] MEDS: FLUCONAZOLE 100 MG TAB PO SCH ×2 (08:34→21:30)
[2019-09-01] MEDS: HEPARIN SODIUM,PORCINE 5,000 UNIT/ML 1 ML VIAL SQ SCH ×2 (08:34→21:30)
[2019-09-01] MEDS: PANTOPRAZOLE 40 MG TABLET PO SCH (08:34)
[2019-09-01] MEDS: NYSTATIN 100,000 UNIT/ML SUSP 500,000 UNIT/5 ML CUP PO SCH ×4 (08:34→21:29)
--- NOTE | 2019-09-01 11:14 | XR ---
EXAMINATION TYPE: XR chest 2V DATE OF EXAM: 09/01/2019 COMPARISON: 08/27/19 HISTORY: Shortness of breath TECHNIQUE: Frontal and lateral views of the chest are obtained. FINDINGS: Scattered senescent parenchymal changes noted. Hyperinflation compatible with COPD. No evidence for infiltrate. No evidence for atelectasis. Heart size is stable. Mediastinal structures are stable and grossly unremarkable. No evidence for hilar prominence. Degenerative changes dorsal spine. IMPRESSION: 1. No evidence for acute pulmonary disease.
[2019-09-01 11:21] LABS: African American GFR (CKD) >90 (>60 ml/min/1.73 sqM); Anion Gap 6 mmol/L; Blood Urea Nitrogen 15 mg/dL (9-20); Calcium 7.9 mg/dL (8.4-10.2); Carbon Dioxide 31 mmol/L (22-30); Chloride 93 mmol/L (98-107); Glucose 139 mg/dL (74-99); Non-African American GFR(CKD) >90 (>60 ml/min/1.73 sqM); Potassium 3.6 mmol/L (3.5-5.1); Sodium 130 mmol/L (137-145)
[2019-09-01 12:16] LABS: Glucose,Whole Blood 125 mg/dL (75-99)
[2019-09-01] MEDS ORDERED: LIDOCAINE 1% INJ 10MG/ML (20 ML MDV) ONE (12:48)
[2019-09-01] MEDS ORDERED: PROPOFOL 10 MG/ML 20 ML VIAL IV ONE (12:48)
[2019-09-01] MEDS ORDERED: IV FLUID CONTINUATION 1,000 ML IV ONE (12:50)
--- NOTE | 2019-09-01 13:03 | P.PCN ---
Date of Procedure: 09/01/19 Procedure(s) Performed: BRIEF HISTORY: Patient is a 64-year-old, pleasant, white male scheduled for an upper endoscopy as a part of evaluation of abnormal CAT scan of abdomen that revealed diffuse gastric folds with gastric mass.. PROCEDURE PERFORMED: Esophagogastroduodenoscopy with biopsy. PREOPERATIVE DIAGNOSIS: Abnormal CAT scan of abdomen showing thickened gastric folds with epigastric. IV sedation per anesthesia. PROCEDURE: After informed consent was obtained, the patient was brought into [facility] endoscopy unit. IV sedation was administered by Anesthesia under continuous monitoring. Initially the Olympus GIF-140 video endoscope was inserted into the mouth. Esophagus intubated without any difficulty. It was gradually advanced into the stomach and duodenum and carefully examined. The bulb and the second part of the duodenum appeared normal. The scope at this time was withdrawn to the stomach, adequately insufflated with air, and upon careful examination, mucosa of the antrum, body, cardia and the fundus appeared normal. The scope was then withdrawn into the esophagus. Small size hiatal hernia noted. The GE junction was located at 46 cm from the incisors. There was a short segment of Herring's esophagus identified extending 5 mm proximal to the GE junction which was biopsied. The esophagus esophagus appeared normal. There were no erosions or ulcerations seen and the patient tolerated the procedure well. IMPRESSION: 1. Small hiatal hernia. 2. A 5 mm tongue of Herring's appearing mucosa extending proximal to the GE junction status post biopsy 3. No evidence of gastric mass. RECOMMENDATIONS: The findings of this examination were discussed with the patient . He will continue with Prilosec 20 mg daily. Advised to follow with the biopsy results. If the biopsy confirms the presence of Herring's esophagus he can have a repeat upper endoscopy in 2-3 years
--- NOTE | 2019-09-01 13:23 | P.PN ---
Subjective Progress Note Date: 09/01/19 Principal diagnosis: Acute exacerbation of chronic obstructive pulmonary disease The patient is seen today 08/28/2019 in follow-up on the regular medical floor. He is awake and alert in no acute distress. He is still somewhat bronchospastic and wheezy. Stating not much improved over the past couple of days. He remains on IV Solu-Medrol bronchodilators and antibiotics. Chest x- ray revealed no acute infiltrate. Maintaining good O2 saturations in the mid 90s on room air. She's afebrile. Hemodynamically stable. The patient is seen today 08/29/2019 in follow-up on the regular medical floor. He is currently sitting up in a chair at the bedside. Awake and alert in no acute distress. States he is breathing about the same. No significant improvement. Continues to be bronchospastic and wheezy. Maintained on DuoNeb inhalations, Pulmicort and Perforomist inhalations, IV Solu-Medrol. Maintaining O2 saturations in the 90s on room air. He's been afebrile. Hemodynamically stable. Plan is for bronchoscopy with BAL today. The patient is seen today 08/30/2019 follow-up on the regular medical floor. He is awake and alert in no acute distress. Maintaining O2 saturations in the 90s on room air. He is afebrile. Hemodynamically stable. Doing better today co mpared to yesterday. Sitting up in a chair at the bedside. He did undergo bronchoscopy with BAL and copious amounts of thick secretions were suctioned, also noted oral candidiasis. Cytology and fluid analysis pending. Sodium 129. Potassium 3.7. Creatinine 0.66. Remains on doxycycline, Diflucan, IV Solu- Medrol and bronchodilators. The patient is seen today 08/31/2019 in follow-up on the regular medical floor. He is up ambulating in his room. Feeling better today compared to yesterday. Still somewhat bronchospastic and wheezing. He continues to maintain good O2 saturations in the 90s on room air. He's been afebrile. Hemodynamically stable. Sodium 128. Potassium 4.2. Creatinine 0.60. Remains on doxycycline, Diflucan, IV Solu-Medrol and bronchodilators. On 09/01/2019 patient seen in follow-up on the regular medical surgical floor. He still feels that his breathing has not much improved despite the medical treatment, patient is status post bronchoscopy with BAL on 08/29/2019. " Lavage cultures are still pending, cytology is pending. Room air pulse ox is 90%, no fever or chills, hemodynamically stable, despite the medical treatment patient's chest remains very noisy, diffuse wheezes and rhonchi. Patient remains on combination of Pulmicort and Perforomist, breathing treatments, IV Solu-Medrol. Objective - Vital Signs Vital signs: Vital Signs Temp 98.2 F 09/01/19 08:40 Pulse 82 09/01/19 11:56 Resp 20 09/01/19 11:45 BP 124/68 09/01/19 08:40 Pulse Ox 98 09/01/19 08:40 Intake & Output 08/31/19 09/01/19 09/01/19 18:59 06:59 18:59 Intake Total 100 Balance 100 Intake: IV 100 Other: Voiding Method Toilet Toilet # Voids 2 2 # Bowel Movements 1 - Exam GENERAL EXAM: Alert, very pleasant, 64-year-old white male, comfortable in no apparent distress. HEAD: Normocephalic/atraumatic. EYES: Normal reaction of pupils, equal size. Conjunctiva pink, sclera white. NOSE: Clear with pink turbinates. THROAT: No erythema or exudates. NECK: No masses, no JVD, no thyroid enlargement, no adenopathy. CHEST: No chest wall deformity. Symmetrical expansion. LUNGS: Equal air entry with diffuse wheezes and rhonchi CVS: Regular rate and rhythm, normal S1 and S2, no gallops, no murmurs, no rubs ABDOMEN: Soft, nontender. No hepatosplenomegaly, normal bowel sounds, no guarding or rigidity. EXTREMITIES: No clubbing, no edema, no cyanosis, 2+ pulses and upper and lower extremities. MUSCULOSKELETAL: Muscle strength and tone normal. SPINE: No scoliosis or deformity SKIN: No rashes CENTRAL NERVOUS SYSTEM: Alert and oriented -3. No focal deficits, tone is normal in all 4 extremities. PSYCHIATRIC: Alert and oriented -3. Appropriate affect. Intact judgment and insight. - Labs CBC & Chem 7: 08/22/19 15:07 09/01/19 10:08 Labs: Abnormal Lab Results - Last 24 Hours (Table) 0708/31/19 09/01/19 Range/Units 16:16 20:28 06:38 Sodium (137-145) mmol/L Chloride (98-107) mmol/L Carbon Dioxide (22-30) mmol/L Creatinine (0.66-1.25) mg/dL Glucose (74-99) mg/dL POC Glucose (mg/dL) 199 H 142 H 144 H (75-99) mg/dL Calcium (8.4-10.2) mg/dL 09/01/19 09/01/19 Range/Units 10:08 12:14 Sodium 130 L (137-145) mmol/L Chloride 93 L (98-107) mmol/L Carbon Dioxide 31 H (22-30) mmol/L Creatinine 0.60 L (0.66-1.25) mg/dL Glucose 139 H (74-99) mg/dL POC Glucose (mg/dL) 125 H (75-99) mg/dL Calcium 7.9 L (8.4-10.2) mg/dL Assessment and Plan Plan: Assessment: Acute exacerbation of COPD, slow improvement, status post bronchoscopy with BAL on 08/29/2019 Acute purulent tracheobronchitis and some component of hemoptysis secondary to bronchitis. Resolved. Acute hemoptysis. Resolved Chronic biapical pulmonary scarring New onset atrial fibrillation upon his admission, presently in normal sinus rhythm. History of C. difficile colitis. Plan: Continue current medical treatment, awaiting results of the bronchial wash cultures, we'll increase the IV Solumedrol to 60 mg every 6 hours, patient has been maximized on medical treatment still remains dyspneic and bronchospastic, quite back to baseline, we will continue to follow, obtain follow-up chest x-ray today. Chest X-ray has been reviewed showing no evidence of acute pulmonary disease. Continue to optimize patient's COPD we'll follow I performed a history & physical examination of the patient and discussed their management with my nurse practitioner, Luana Arcos. I reviewed the nurse practitioner's note and agree with the documented findings and plan of care. Lung sounds are positive for diffuse wheezes throughout the lung malagon. The findings and the impression was discussed with the patient. I attest to the documentation by the nurse practitioner. Time with Patient: Less than 30
--- NOTE | 2019-09-01 13:31 | P.PN ---
Subjective Progress Note Date: 09/01/19 Principal diagnosis: This is a pleasant 64 years old male with past medical history of COPD, and glaucoma. He follows up with Dr. Noa Lau of [facility]. He does not see a legal entity controller. He was diagnosed with COPD about 3 months ago when he was in the hospital he did used to smoke and quit 2 years ago. He used to smoke half pack per day for 55 years. He denies alcohol or illicit tracts. This time he presents with worsening dyspnea for about 2 days, not relieved by h is inhaler. He has some cough but no phlegm. He has mild central chest pain that is worse with coughing. He uses only inhaler at home, besides, eyedrops and some vitamins for his macular degeneration Vitas looks stable. Labs show an unremarkable CBC, BMP and liver enzymes. Chest x-ray showing COPD with biapical pleural thickening EKG: Normal sinus rhythm with no significant ST-T changes. QTC is 510 08/23/2019 Patient still dyspneic, he has extensive coughing with little blood in it, however is not in respiratory distress, his saturations in the 90s on 2 L oxygen. No chest pain Vitals stable and saturating 96% on 2 L oxygen. Sugar is controlled Patient remains on Solu-Medrol intravenously Pulmonary input is appreciated 08/24/2019 pt is still dyspeic with persistant expirotory wheezing , similar to yesterday with no much improvement in his condition , legal entity controller added zithromax and perforomist to his treatment regimen while keep monitoring pt , pt is not ready to be discharged yet robitussin is also added to relieve pt coughing spells. vitals are stable though and he is saturating 94% on room air 08/25/2019 Patient awake but is still have symptoms of dyspnea and expiratory wheezing despite his been on steroids. Pulmonary the case and they are increasing the dose of steroids. He is on her for most His vitals are stable and Herrman saturating 95% on room air. His sodium improved to 1:30, creatinine 0.4, sugars controlled. EKG showing normal sinus rhythm with sinus arrhythmia, with a rate of 84. No significant ST-T changes. His currently on Solu-Medrol 60 mg every 6 hours is also on formoterol and Zithromax is been added yesterday. 08/26/2019 patient still have significant wheezing and limited air expiratory infarct. Patient evaluated by legal entity controller today and he does not think he is ready for discharge today and they agree with that. We'll continue with same treatment and add incentive spirometry 08/27/2019 Patient still with a significant wheezing, he is able to walk with exertional dyspnea. He still has coughing. His Robitussin dose was increased. Also will repeat chest x-ray for follow-up Vitals are stable and he is using incentive spirometry, is currently on Solu- Medrol, Zithromax, Perforomist and Pulmicort. 08/28/2019 Patient still wheezing with no improvement. He still coughing and he is getting some abdominal discomfort from the cough, he is already on Robitussin, Tessalon is been added today Pulmonary on the case and they recommended bronchoscopy tomorrow 08/29/2019 Patient has no improvement in his wheezing since he came into the hospital despite being on the steroids, antibiotics, bronchodilators and other treatment. Pulmonary team are planning to do bronchoscopy with BAL this morning 08/30/2019 Patient is status post bronchoscopy yesterday and his breathing is easier today and on exam he has less wheezing. Bronchoscopy study are still pending from the vaginal where there is a lot of tenacious secretions been taken out, also thrush this founded are at his vocal cords and he was started on fluconazole. However today he is complaining of from periumbilical and left lower quadrant tenderness with possible some rebound tenderness, his abdomen mildly distended. We'll order CT of the abdomen and pelvis and call for surgery consult. 08/31/2019 Patient still have wheezing although it looks somewhat better than the previous days. Patient already on steroids and bronchodilators is also on fluconazole for thrush around the vocal cord. Other studies from his broncho-alveolar lavage is pending. She'll with epigastric pain and tenderness, could be related to gastric irritation from steroids, CT of the abdomen showing possible stomach mass. Consult GI team Monitor sodium 09/01/2019 Patient is seen and evaluated and follow-up continues to be dyspneic with wheezing noted on exam. Patient recently underwent bronchoscopy with BAL and pulmonary is following closely. GI also following and planning to undergo EGD today as the CT of the abdomen showed possible stomach mass. Will await report. Patient is maintained on IV steroids and bronchodilators and will continue this time. Objective - Vital Signs Vital signs: Vital Signs Temp 98.2 F 09/01/19 08:40 Pulse 82 09/01/19 11:56 Resp 20 09/01/19 11:45 BP 124/68 09/01/19 08:40 Pulse Ox 98 09/01/19 08:40 Intake & Output 08/31/19 09/01/19 09/01/19 18:59 06:59 18:59 Other: Voiding Method Toilet Toilet # Voids 2 2 # Bowel Movements 1 - Exam GENERAL: The patient is alert and oriented x3, not in any acute distress. Well developed, well nourished. HEENT: Pupils are round and equally reacting to light. EOMI. No scleral icterus. No conjunctival pallor. Normocephalic, atraumatic. No pharyngeal erythema. No thyromegaly. CARDIOVASCULAR: S1 and S2 present. No murmurs, rubs, or gallops. PULMONARY: Diminished breath sounds bilaterally with significant expiratory wheezing noted on exam ABDOMEN: Soft, nontender, nondistended, normoactive bowel sounds. No palpable organomegaly. MUSCULOSKELETAL: No joint swelling or deformity. EXTREMITIES: No cyanosis, clubbing, or pedal edema. NEUROLOGICAL: Gross neurological examination did not reveal any focal deficits. SKIN: No rashes. no petechiae. - Labs CBC & Chem 7: 08/22/19 15:07 09/01/19 10:08 Labs: Abnormal Lab Results - Last 24 Hours (Table) 08/31/19 08/31/19 09/01/19 Range/Units 16:16 20:28 06:38 Sodium (137-145) mmol/L Chloride (98-107) mmol/L Carbon Dioxide (22-30) mmol/L Creatinine (0.66-1.25) mg/dL Glucose (74-99) mg/dL POC Glucose (mg/dL) 199 H 142 H 144 H (75-99) mg/dL Calcium (8.4-10.2) mg/dL 09/01/19 09/01/19 Range/Units 10:08 12:14 Sodium 130 L (137-145) mmol/L Chloride 93 L (98-107) mmol/L Carbon Dioxide 31 H (22-30) mmol/L Creatinine 0.60 L (0.66-1.25) mg/dL Glucose 139 H (74-99) mg/dL POC Glucose (mg/dL) 125 H (75-99) mg/dL Calcium 7.9 L (8.4-10.2) mg/dL Assessment and Plan Assessment: Acute COPD exacerbation fungal infection around the vocal cords Periumbilical pain and tenderness Bilateral apical pleural thickening glaucoma Macular degeneration DVT prophylaxis: subq heparin GI Prophylaxis: Pepcid Plan: Recommend continue current medications, management, and symptomatic treatment. GI is following and patient will undergo EGD. Will await report. Pulmonary also following and continuing with breathing treatments along with steroids. Further recommendations to follow.
[2019-09-01 15:19] LABS: Appearance,BF Hazy; Color,BF Colorless; Nucleated Cells, Body Fluid 38 /uL; RBC, Body Fluid 4 /uL
[2019-09-01 15:31] LABS: Mononuclear WBC,Body Fluid 42 %; Polynuclear WBC,Body Fluid 58 %; Total Cells Counted,Body Fluid 100
[2019-09-01 17:11] LABS: Glucose,Whole Blood 205 mg/dL (75-99)
[2019-09-01 20:53] LABS: Glucose,Whole Blood 88 mg/dL (75-99)
[2019-09-01] MEDS ORDERED: methylPREDNISolone SOD SUCCI 40 MG/ML 1 ML VIAL IV SCH (21:00)
[2019-09-01] MEDS: LATANOPROST 0.005% OPHTH DROPS 2.5 ML BTL LEFT EYE SCH (21:29)
[2019-09-02] MEDS: PIPERACILLIN-TAZOBACTAM 3.375 GM in SODIUM CHLORIDE 0.9% 100 ML IVPB SCH ×3 (06:07→19:29)
[2019-09-02] MEDS: methylPREDNISolone SOD SUCCI 125 MG/2 ML VIAL IV SCH ×4 (06:07→23:41)
[2019-09-02 06:46] LABS: Glucose,Whole Blood 138 mg/dL (75-99)
[2019-09-02] MEDS: PANTOPRAZOLE 40 MG TABLET PO SCH (08:44)
[2019-09-02] MEDS: HEPARIN SODIUM,PORCINE 5,000 UNIT/ML 1 ML VIAL SQ SCH ×2 (08:44→19:28)
[2019-09-02] MEDS: FLUCONAZOLE 100 MG TAB PO SCH ×2 (08:44→19:28)
[2019-09-02] MEDS: NYSTATIN 100,000 UNIT/ML SUSP 500,000 UNIT/5 ML CUP PO SCH ×4 (08:44→19:28)
[2019-09-02] MEDS: INSULIN ASPART (NovoLOG) 100 UNIT/ML VIAL SQ SCH ×4 (08:45→20:45)
[2019-09-02] MEDS: [UNRECOGNIZED DRUG - OTHER] PO SCH ×2 (08:45→19:28)
[2019-09-02] MEDS: FORMOTEROL FUMARATE 20 MCG/2 ML NEBU INHALATION SCH ×2 (09:45→19:55)
[2019-09-02] MEDS: IPRATROPIUM-ALBUTEROL 3 ML NEB INHALATION SCH ×4 (09:45→19:55)
[2019-09-02] MEDS: BUDESONIDE 1 MG/2 ML NEBU INHALATION SCH ×2 (09:45→19:55)
--- NOTE | 2019-09-02 10:44 | P.PN ---
Subjective Progress Note Date: 09/02/19 Principal diagnosis: Acute exacerbation of chronic obstructive pulmonary disease The patient is seen today 08/28/2019 in follow-up on the regular medical floor. He is awake and alert in no acute distress. He is still somewhat bronchospastic and wheezy. Stating not much improved over the past couple of days. He remains on IV Solu-Medrol bronchodilators and antibiotics. Chest x- ray revealed no acute infiltrate. Maintaining good O2 saturations in the mid 90s on room air. She's afebrile. Hemodynamically stable. The patient is seen today 08/29/2019 in follow-up on the regular medical floor. He is currently sitting up in a chair at the bedside. Awake and alert in no acute distress. States he is breathing about the same. No significant improvement. Continues to be bronchospastic and wheezy. Maintained on DuoNeb inhalations, Pulmicort and Perforomist inhalations, IV Solu-Medrol. Maintaining O2 saturations in the 90s on room air. He's been afebrile. Hemodynamically stable. Plan is for bronchoscopy with BAL today. The patient is seen today 08/30/2019 follow-up on the regular medical floor. He is awake and alert in no acute distress. Maintaining O2 saturations in the 90s on room air. He is afebrile. Hemodynamically stable. Doing better today co mpared to yesterday. Sitting up in a chair at the bedside. He did undergo bronchoscopy with BAL and copious amounts of thick secretions were suctioned, also noted oral candidiasis. Cytology and fluid analysis pending. Sodium 129. Potassium 3.7. Creatinine 0.66. Remains on doxycycline, Diflucan, IV Solu- Medrol and bronchodilators. The patient is seen today 08/31/2019 in follow-up on the regular medical floor. He is up ambulating in his room. Feeling better today compared to yesterday. Still somewhat bronchospastic and wheezing. He continues to maintain good O2 saturations in the 90s on room air. He's been afebrile. Hemodynamically stable. Sodium 128. Potassium 4.2. Creatinine 0.60. Remains on doxycycline, Diflucan, IV Solu-Medrol and bronchodilators. On 09/01/2019 patient seen in follow-up on the regular medical surgical floor. He still feels that his breathing has not much improved despite the medical treatment, patient is status post bronchoscopy with BAL on 08/29/2019. " Lavage cultures are still pending, cytology is pending. Room air pulse ox is 90%, no fever or chills, hemodynamically stable, despite the medical treatment patient's chest remains very noisy, diffuse wheezes and rhonchi. Patient remains on combination of Pulmicort and Perforomist, breathing treatments, IV Solu-Medrol. On 09/02/2019 patient seen in follow-up on general medical floor, he states he's had limited improvement in terms of his breathing, still quite bronchospastic, and dyspneic with any exertion. His bronchial lavage Gram stain shows moderate epithelial cells, many gram-negative bacilli, many gram-positive cocci, and moderate budding yeast, final cultures pending. Room air pulse ox is 98%, patient is afebrile, he is on oral Diflucan, Tessalon Perles, Mucinex, IV steroids, Zosyn, and nebulized bronchodilators, his been maximized on medical treatment, and despite that is still quite dyspneic and bronchospastic, we spoke to him about possibility of doing another repeat bronchoscopy with BAL tomorrow, and patient is agreeable to proceed. Objective - Vital Signs Vital signs: Vital Signs Temp 98.2 F 09/02/19 07:08 Pulse 58 L 09/02/19 07:08 Resp 16 09/02/19 07:08 BP 122/77 09/02/19 07:08 Pulse Ox 98 09/02/19 07:08 Intake & Output 09/01/19 09/02/19 09/02/19 18:59 06:59 18:59 Intake Total 300 Balance 300 Intake: IV 300 Piperacillin-Tazobactam 3 200 .375 gm In Sodium Chloride 0.9% 100 ml @ 25 mls/hr IVPB Q8H [facility] Rx#: [id number] Other: Voiding Method Toilet # Voids 4 # Bowel Movements 1 - Exam GENERAL EXAM: Alert, very pleasant, 64-year-old white male, on room air, with a pulse ox of 98%, comfortable in no apparent distress. HEAD: Normocephalic/atraumatic. EYES: Normal reaction of pupils, equal size. Conjunctiva pink, sclera white. NOSE: Clear with pink turbinates. THROAT: No erythema or exudates. NECK: No masses, no JVD, no thyroid enlargement, no adenopathy. CHEST: No chest wall deformity. Symmetrical expansion. LUNGS: Equal air entry with diffuse wheezes and rhonchi CVS: Regular rate and rhythm, normal S1 and S2, no gallops, no murmurs, no rubs ABDOMEN: Soft, nontender. No hepatosplenomegaly, normal bowel sounds, no guarding or rigidity. EXTREMITIES: No clubbing, no edema, no cyanosis, 2+ pulses and upper and lower extremities. MUSCULOSKELETAL: Muscle strength and tone normal. SPINE: No scoliosis or deformity SKIN: No rashes CENTRAL NERVOUS SYSTEM: Alert and oriented -3. No focal deficits, tone is normal in all 4 extremities. PSYCHIATRIC: Alert and oriented -3. Appropriate affect. Intact judgment and insight. - Labs CBC & Chem 7: 08/22/19 15:07 09/01/19 10:08 Labs: Abnormal Lab Results - Last 24 Hours (Table) 09/01/19 09/01/19 09/01/19 Range/Units 10:08 12:14 17:04 Sodium 130 L (137-145) mmol/L Chloride 93 L (98-107) mmol/L Carbon Dioxide 31 H (22-30) mmol/L Creatinine 0.60 L (0.66-1.25) mg/dL Glucose 139 H (74-99) mg/dL POC Glucose (mg/dL) 125 H 205 H (75-99) mg/dL Calcium 7.9 L (8.4-10.2) mg/dL 09/02/19 Range/Units 06:44 Sodium (137-145) mmol/L Chloride (98-107) mmol/L Carbon Dioxide (22-30) mmol/L Creatinine (0.66-1.25) mg/dL Glucose (74-99) mg/dL POC Glucose (mg/dL) 138 H (75-99) mg/dL Calcium (8.4-10.2) mg/dL Microbiology - Last 24 Hours (Table) 09/01/19 12:27 Acid Fast Bacilli Smear - Final Bronchial Washings - Random Acid Fast Bacilli Culture - Preliminary 09/01/19 12:27 Gram Stain - Preliminary Bronchial Washings - Random Bronchial Washings Culture - Preliminary 09/01/19 12:27 Fungal Culture - Preliminary Bronchial Washings - Random Assessment and Plan Plan: Assessment: Acute exacerbation of COPD, slow improvement, status post bronchoscopy with BAL on 08/29/2019 Acute purulent tracheobronchitis and some component of hemoptysis secondary to bronchitis. Resolved. Acute hemoptysis. Resolved Chronic biapical pulmonary scarring New onset atrial fibrillation upon his admission, presently in normal sinus rhythm. History of C. difficile colitis. Plan: Continue current medical treatment, patient has been maximized on medical treatment, still with spastic and congested, we spoke to him a about repeating a bronchoscopy with BAL tomorrow, and patient is agreeable to proceed, nothing by mouth after midnight, continue nebulized bronchodilators, same dose IV steroids, bronchodilators and antibiotics. I performed a history & physical examination of the patient and discussed their management with my nurse practitioner, Luana Arcos. I reviewed the nurse practitioner's note and agree with the documented findings and plan of care. Lung sounds are positive for diffuse wheezes throughout the lung malagon. The findings and the impression was discussed with the patient. I attest to the documentation by the nurse practitioner. Time with Patient: Less than 30
[2019-09-02 11:56] LABS: Glucose,Whole Blood 123 mg/dL (75-99)
--- NOTE | 2019-09-02 14:16 | P.PN ---
Subjective Progress Note Date: 09/02/19 Principal diagnosis: This is a pleasant 64 years old male with past medical history of COPD, and glaucoma. He follows up with Dr. Noa Lau of [facility]. He does not see a body engineer. He was diagnosed with COPD about 3 months ago when he was in the hospital he did used to smoke and quit 2 years ago. He used to smoke half pack per day for 55 years. He denies alcohol or illicit tracts. This time he presents with worsening dyspnea for about 2 days, not relieved by h is inhaler. He has some cough but no phlegm. He has mild central chest pain that is worse with coughing. He uses only inhaler at home, besides, eyedrops and some vitamins for his macular degeneration Vitas looks stable. Labs show an unremarkable CBC, BMP and liver enzymes. Chest x-ray showing COPD with biapical pleural thickening EKG: Normal sinus rhythm with no significant ST-T changes. QTC is 510 08/23/2019 Patient still dyspneic, he has extensive coughing with little blood in it, however is not in respiratory distress, his saturations in the 90s on 2 L oxygen. No chest pain Vitals stable and saturating 96% on 2 L oxygen. Sugar is controlled Patient remains on Solu-Medrol intravenously Pulmonary input is appreciated 08/24/2019 pt is still dyspeic with persistant expirotory wheezing , similar to yesterday with no much improvement in his condition , body engineer added zithromax and perforomist to his treatment regimen while keep monitoring pt , pt is not ready to be discharged yet robitussin is also added to relieve pt coughing spells. vitals are stable though and he is saturating 94% on room air 08/25/2019 Patient awake but is still have symptoms of dyspnea and expiratory wheezing despite his been on steroids. Pulmonary the case and they are increasing the dose of steroids. He is on her for most His vitals are stable and Herrman saturating 95% on room air. His sodium improved to 1:30, creatinine 0.4, sugars controlled. EKG showing normal sinus rhythm with sinus arrhythmia, with a rate of 84. No significant ST-T changes. His currently on Solu-Medrol 60 mg every 6 hours is also on formoterol and Zithromax is been added yesterday. 08/26/2019 patient still have significant wheezing and limited air expiratory infarct. Patient evaluated by body engineer today and he does not think he is ready for discharge today and they agree with that. We'll continue with same treatment and add incentive spirometry 08/27/2019 Patient still with a significant wheezing, he is able to walk with exertional dyspnea. He still has coughing. His Robitussin dose was increased. Also will repeat chest x-ray for follow-up Vitals are stable and he is using incentive spirometry, is currently on Solu- Medrol, Zithromax, Perforomist and Pulmicort. 08/28/2019 Patient still wheezing with no improvement. He still coughing and he is getting some abdominal discomfort from the cough, he is already on Robitussin, Tessalon is been added today Pulmonary on the case and they recommended bronchoscopy tomorrow 08/29/2019 Patient has no improvement in his wheezing since he came into the hospital despite being on the steroids, antibiotics, bronchodilators and other treatment. Pulmonary team are planning to do bronchoscopy with BAL this morning 08/30/2019 Patient is status post bronchoscopy yesterday and his breathing is easier today and on exam he has less wheezing. Bronchoscopy study are still pending from the vaginal where there is a lot of tenacious secretions been taken out, also thrush this founded are at his vocal cords and he was started on fluconazole. However today he is complaining of from periumbilical and left lower quadrant tenderness with possible some rebound tenderness, his abdomen mildly distended. We'll order CT of the abdomen and pelvis and call for surgery consult. 08/31/2019 Patient still have wheezing although it looks somewhat better than the previous days. Patient already on steroids and bronchodilators is also on fluconazole for thrush around the vocal cord. Other studies from his broncho-alveolar lavage is pending. She'll with epigastric pain and tenderness, could be related to gastric irritation from steroids, CT of the abdomen showing possible stomach mass. Consult GI team Monitor sodium 09/01/2019 Patient is seen and evaluated and follow-up continues to be dyspneic with wheezing noted on exam. Patient recently underwent bronchoscopy with BAL and pulmonary is following closely. GI also following and planning to undergo EGD today as the CT of the abdomen showed possible stomach mass. Will await report. Patient is maintained on IV steroids and bronchodilators and will continue this time. 09/02/2019 Patient is seen and evaluated in follow-up and continues to be dyspneic with exertion. Patient also continues to be wheezing and is currently maintained on IV steroids and breathing treatments. Pulmonary following. Patient will undergo bronchoscopy in the morning. Preliminary cultures from previous [facility] hoscopy showing gram-negative bacilli. Currently maintained on Zosyn and will continue this time. Patient also underwent EGD with GI yesterday showing a small hiatal hernia, and a 5 mm tongue of Herring's appearing mucosa extending proximal to the GE junction with biopsies obtained, no evidence of gastric mass. Objective - Vital Signs Vital signs: Vital Signs Temp 98.2 F 09/02/19 07:08 Pulse 60 09/02/19 12:28 Resp 16 09/02/19 07:08 BP 122/77 09/02/19 07:08 Pulse Ox 98 09/02/19 07:08 Intake & Output 09/01/19 09/02/19 09/02/19 18:59 06:59 18:59 Intake Total 300 Balance 300 Intake: IV 300 Piperacillin-Tazobactam 3 200 .375 gm In Sodium Chloride 0.9% 100 ml @ 25 mls/hr IVPB Q8H [facility] Rx#: [id number] Other: Voiding Method Toilet # Voids 4 # Bowel Movements 1 - Exam GENERAL: The patient is alert and oriented x3, not in any acute distress. Well developed, well nourished. HEENT: Pupils are round and equally reacting to light. EOMI. No scleral icterus. No conjunctival pallor. Normocephalic, atraumatic. No pharyngeal erythema. No thyromegaly. CARDIOVASCULAR: S1 and S2 present. No murmurs, rubs, or gallops. PULMONARY: Diminished breath sounds bilaterally with significant expiratory wheezing noted on exam ABDOMEN: Soft, nontender, nondistended, normoactive bowel sounds. No palpable organomegaly. MUSCULOSKELETAL: No joint swelling or deformity. EXTREMITIES: No cyanosis, clubbing, or pedal edema. NEUROLOGICAL: Gross neurological examination did not reveal any focal deficits. SKIN: No rashes. no petechiae. - Labs CBC & Chem 7: 08/22/19 15:07 09/01/19 10:08 Labs: Abnormal Lab Results - Last 24 Hours (Table) 09/01/19 09/02/19 09/02/19 Range/Units 17:04 06:44 11:54 POC Glucose (mg/dL) 205 H 138 H 123 H (75-99) mg/dL Microbiology - Last 24 Hours (Table) 09/01/19 12:27 Gram Stain - Preliminary Bronchial Washings - Random Bronchial Washings Culture - Preliminary Gram Neg Bacilli Gram Neg Bacilli#2 09/01/19 12:27 Acid Fast Bacilli Smear - Final Bronchial Washings - Random Acid Fast Bacilli Culture - Preliminary 09/01/19 12:27 Fungal Culture - Preliminary Bronchial Washings - Random Assessment and Plan Assessment: Acute COPD exacerbation fungal infection around the vocal cords Periumbilical pain and tenderness Bilateral apical pleural thickening glaucoma Macular degeneration DVT prophylaxis: subq heparin GI Prophylaxis: Pepcid Plan: Recommend continue current medications, management, and symptomatic treatment. GI is following and patient underwent EGD with biopsies showing a small hiatal hernia, no evidence of gastric mass, and a 5 mm tongue of Herring's appearing mucosa extending proximal to the GE junction. Patient will follow-up with GI in the outpatient setting for results. Pulmonary also following and continuing with breathing treatments along with steroids. Plan is for bronchoscopy in the morning. Preliminary cultures from previous bronchoscopy showing gram-negative bacilli. Patient is maintained on IV Zosyn and will continue this time. Furt her recommendations to follow. Possible discharge in 24-48 hours.
--- NOTE | 2019-09-02 16:29 | PN ---
PROGRESS NOTE DATE OF SERVICE: 09/02/2019 Patient is a 64-year-old pleasant white male who was admitted to the hospital with COPD exacerbation, on antibiotics as well as IV steroids, doing well. He did have an upper endoscopy yesterday that showed a small hiatal hernia and a small short-segment of Herring's esophagus and no evidence of gastric mass. Biopsies were done. Results are pending, on Protonix 40 mg daily. He is doing well. He denies any complaints. PHYSICAL EXAMINATION: Appears comfortable, in no apparent distress. Vital signs are stable. Blood pressure is 122/77, pulse rate 58, temperature 98.2. HEENT: Examination unremarkable, sclerae nonicteric, conjunctivae are pink, oral cavity no lesions. NECK: No JVD or lymph node enlargement. CHEST: Decreased breath sounds bilaterally. HEART: Regular rate and rhythm. ABDOMEN: Soft, bowel sounds are positive, no organomegaly. EXTREMITIES: No pedal edema. NEUROLOGIC: Alert and oriented x3. No focal deficits. LABS: No labs available from today. IMPRESSION: 1. Exacerbation of chronic obstructive pulmonary disease. 2. Small hiatal hernia and short-segment Herring's esophagus noted on EGD yesterday. RECOMMENDATIONS: 1. Continue with antibiotics. 2. Continue with Protonix 40 mg daily. 3. Await biopsy results. Thank you for this consultation. MMOLVINL / IJN: [id number] /
[2019-09-02 16:53] LABS: Glucose,Whole Blood 172 mg/dL (75-99)
[2019-09-02] MEDS: LATANOPROST 0.005% OPHTH DROPS 2.5 ML BTL LEFT EYE SCH (19:30)
[2019-09-02 20:25] LABS: Glucose,Whole Blood 125 mg/dL (75-99)
[2019-09-03 00:51] VITALS: RESP 18
[2019-09-03] MEDS: PIPERACILLIN-TAZOBACTAM 3.375 GM in SODIUM CHLORIDE 0.9% 100 ML IVPB SCH ×3 (04:56→19:41)
[2019-09-03] MEDS: methylPREDNISolone SOD SUCCI 125 MG/2 ML VIAL IV SCH ×3 (04:56→17:41)
[2019-09-03 06:43] LABS: Glucose,Whole Blood 129 mg/dL (75-99)
[2019-09-03] MEDS: INSULIN ASPART (NovoLOG) 100 UNIT/ML VIAL SQ SCH ×4 (07:29→23:39)
[2019-09-03] MEDS: BUDESONIDE 1 MG/2 ML NEBU INHALATION SCH ×2 (08:13→19:02)
[2019-09-03] MEDS: FORMOTEROL FUMARATE 20 MCG/2 ML NEBU INHALATION SCH ×2 (08:13→19:02)
[2019-09-03] MEDS: IPRATROPIUM-ALBUTEROL 3 ML NEB INHALATION SCH ×5 (08:13→20:50)
[2019-09-03] MEDS: NYSTATIN 100,000 UNIT/ML SUSP 500,000 UNIT/5 ML CUP PO SCH ×4 (09:06→19:42)
[2019-09-03] MEDS: FLUCONAZOLE 100 MG TAB PO SCH ×2 (09:09→19:42)
[2019-09-03] MEDS: [UNRECOGNIZED DRUG - OTHER] PO SCH ×2 (09:09→19:41)
[2019-09-03] MEDS ORDERED: DICYCLOMINE 10 MG CAP PO PRN (10:45)
[2019-09-03 11:35] LABS: Glucose,Whole Blood 135 mg/dL (75-99)
[2019-09-03] MEDS ORDERED: MIDAZOLAM 2 MG/2 ML VIAL ONE (12:42)
[2019-09-03] MEDS ORDERED: LIDOCAINE 1% INJ 10MG/ML (20 ML MDV) ONE (12:42)
[2019-09-03] MEDS ORDERED: PROPOFOL 10 MG/ML 20 ML VIAL IV ONE (12:42)
[2019-09-03] MEDS ORDERED: IV FLUID CONTINUATION 1,000 ML IV ONE (12:45)
[2019-09-03] MEDS ORDERED: LIDOCAINE 2% INJ 20 MG/ML INTRATRACH ONE (12:50)
[2019-09-03] MEDS: HEPARIN SODIUM,PORCINE 5,000 UNIT/ML 1 ML VIAL SQ SCH ×2 (14:18→19:42)
[2019-09-03] MEDS: PANTOPRAZOLE 40 MG TABLET PO SCH ×2 (14:19→19:42)
--- NOTE | 2019-09-03 15:17 | PN ---
PROGRESS NOTE PULMONARY/CRITICAL CARE PROGRESS NOTE: DATE OF SERVICE: 09/03/2019 This is a 64-year-old male admitted with a diagnosis of COPD exacerbation. He has been here a number of days now. Unfortunately, COPD has been slow to resolve. He did have a bronchoscopy and BAL last Sunday. We are planning bronchoscopy and BAL today. His primary complaints include chest tightness, wheezing, cough, chest congestion and shortness of breath. He is currently on all the appropriate medications. Cytology up to this point has been negative and microbiology has also been negative. Current vital signs are stable. This includes blood pressure, heart rate, respiratory rate, temperature, and saturation. He appears in no acute distress. There is no audible wheezing, use of accessory muscles or conversational dyspnea. HEENT: Examination is unremarkable. NECK: Supple, full range of motion. No adenopathy. Neck veins are flat. CARDIOVASCULAR: Examination reveals regular rhythm and rate. S1, S2 normal. There is no murmur. LUNGS: Reveal diffuse coarse rhonchi bilaterally. Breath sounds equal. There is prolongation on forced maneuver. No crackles. ABDOMEN: Soft, bowel sounds are heard. EXTREMITIES: Intact. No cyanosis, clubbing, or edema. SKIN: Without rash. NEUROLOGIC: Examination is brief but nonfocal. ASSESSMENT: Chronic obstructive pulmonary disease exacerbation complicated by purulent tracheobronchitis, slow to resolve. PLAN: The patient will have bronchoscopy and BAL today. His last procedure was done on Sunday. Additional recommendations and suggestions are forthcoming. Hopefully, will get the patient turned around. Medications are reviewed. MMODL / IJN: [id number] /
[2019-09-03 15:53] LABS: Appearance,BF Hazy; Color,BF Colorless; Nucleated Cells, Body Fluid 22 /uL; RBC, Body Fluid 11 /uL
[2019-09-03 16:22] LABS: Mononuclear WBC,Body Fluid 24 %; Polynuclear WBC,Body Fluid 76 %; Total Cells Counted,Body Fluid 25
[2019-09-03 16:51] LABS: Glucose,Whole Blood 154 mg/dL (75-99)
[2019-09-03] MEDS: LATANOPROST 0.005% OPHTH DROPS 2.5 ML BTL LEFT EYE SCH (19:42)
[2019-09-03 20:58] LABS: Glucose,Whole Blood 182 mg/dL (75-99)
--- NOTE | 2019-09-03 22:05 | P.PN ---
Subjective Progress Note Date: 09/03/19 Principal diagnosis: This is a pleasant 64 years old male with past medical history of COPD, and glaucoma. He follows up with Dr. Noa Lau of Dr[facility]ich[facility]. He does not see a property preservation specialist. He was diagnosed with COPD about 3 months ago when he was in the hospital he did used to smoke and quit 2 years ago. He used to smoke half pack per day for 55 years. He denies alcohol or illicit tracts. This time he presents with worsening dyspnea for about 2 days, not relieved by h is inhaler. He has some cough but no phlegm. He has mild central chest pain that is worse with coughing. He uses only inhaler at home, besides, eyedrops and some vitamins for his macular degeneration Vitas looks stable. Labs show an unremarkable CBC, BMP and liver enzymes. Chest x-ray showing COPD with biapical pleural thickening EKG: Normal sinus rhythm with no significant ST-T changes. QTC is 510 08/23/2019 Patient still dyspneic, he has extensive coughing with little blood in it, however is not in respiratory distress, his saturations in the 90s on 2 L oxygen. No chest pain Vitals stable and saturating 96% on 2 L oxygen. Sugar is controlled Patient remains on Solu-Medrol intravenously Pulmonary input is appreciated 08/24/2019 pt is still dyspeic with persistant expirotory wheezing , similar to yesterday with no much improvement in his condition , property preservation specialist added zithromax and perforomist to his treatment regimen while keep monitoring pt , pt is not ready to be discharged yet robitussin is also added to relieve pt coughing spells. vitals are stable though and he is saturating 94% on room air 08/25/2019 Patient awake but is still have symptoms of dyspnea and expiratory wheezing despite his been on steroids. Pulmonary the case and they are increasing the dose of steroids. He is on her for most His vitals are stable and Herrman saturating 95% on room air. His sodium improved to 1:30, creatinine 0.4, sugars controlled. EKG showing normal sinus rhythm with sinus arrhythmia, with a rate of 84. No significant ST-T changes. His currently on Solu-Medrol 60 mg every 6 hours is also on formoterol and Zithromax is been added yesterday. 08/26/2019 patient still have significant wheezing and limited air expiratory infarct. Patient evaluated by property preservation specialist today and he does not think he is ready for discharge today and they agree with that. We'll continue with same treatment and add incentive spirometry 08/27/2019 Patient still with a significant wheezing, he is able to walk with exertional dyspnea. He still has coughing. His Robitussin dose was increased. Also will repeat chest x-ray for follow-up Vitals are stable and he is using incentive spirometry, is currently on Solu- Medrol, Zithromax, Perforomist and Pulmicort. 08/28/2019 Patient still wheezing with no improvement. He still coughing and he is getting some abdominal discomfort from the cough, he is already on Robitussin, Tessalon is been added today Pulmonary on the case and they recommended bronchoscopy tomorrow 08/29/2019 Patient has no improvement in his wheezing since he came into the hospital despite being on the steroids, antibiotics, bronchodilators and other treatment. Pulmonary team are planning to do bronchoscopy with BAL this morning 08/30/2019 Patient is status post bronchoscopy yesterday and his breathing is easier today and on exam he has less wheezing. Bronchoscopy study are still pending from the vaginal where there is a lot of tenacious secretions been taken out, also thrush this founded are at his vocal cords and he was started on fluconazole. However today he is complaining of from periumbilical and left lower quadrant tenderness with possible some rebound tenderness, his abdomen mildly distended. We'll order CT of the abdomen and pelvis and call for surgery consult. 08/31/2019 Patient still have wheezing although it looks somewhat better than the previous days. Patient already on steroids and bronchodilators is also on fluconazole for thrush around the vocal cord. Other studies from his broncho-alveolar lavage is pending. She'll with epigastric pain and tenderness, could be related to gastric irritation from steroids, CT of the abdomen showing possible stomach mass. Consult GI team Monitor sodium 09/01/2019 Patient is seen and evaluated and follow-up continues to be dyspneic with wheezing noted on exam. Patient recently underwent bronchoscopy with BAL and pulmonary is following closely. GI also following and planning to undergo EGD today as the CT of the abdomen showed possible stomach mass. Will await report. Patient is maintained on IV steroids and bronchodilators and will continue this time. 09/02/2019 Patient is seen and evaluated in follow-up and continues to be dyspneic with exertion. Patient also continues to be wheezing and is currently maintained on IV steroids and breathing treatments. Pulmonary following. Patient will undergo bronchoscopy in the morning. Preliminary cultures from previous [facility] hoscopy showing gram-negative bacilli. Currently maintained on Zosyn and will continue this time. Patient also underwent EGD with GI yesterday showing a small hiatal hernia, and a 5 mm tongue of Herring's appearing mucosa extending proximal to the GE junction with biopsies obtained, no evidence of gastric mass. 09/03/2019 Patient is seen this morning awaiting to undergo bronchoscopy with BAL with pulmonary today. patient continues to be dyspneic with exertion and bronchospastic. Patient has been NPO for the procedure today. Initial BAL washing analysis showing pseudomonas aeruginosa and klebsiela oxytoca. Remains on zosyn and will continue at this time. Will likely transition to oral upon discharge. Patient underwent biopsies during the EGD with GI yesterday and will be following up outpatient for results as they are currently still pending. Currently patient denies any chest pain, worsening shortness of breath, or palpitations. Patient is afebrile. Patient denies any nausea or vomiting. Objective - Vital Signs Vital signs: Vital Signs Temp 97.7 F 09/03/19 19:21 Pulse 77 09/03/19 19:22 Resp 18 09/03/19 19:22 BP 122/59 09/03/19 19:21 Pulse Ox 99 09/03/19 19:21 Intake & Output 09/03/19 09/03/19 09/04/19 06:59 18:59 06:59 Intake Total 480 100 Output Total 220 Balance 480 -120 Intake: IV 100 Oral 480 Output: Urine 220 Other: Voiding Method Toilet Toilet # Voids 2 - Exam GENERAL: The patient is alert and oriented x3, not in any acute distress. Well developed, well nourished. HEENT: Pupils are round and equally reacting to light. EOMI. No scleral icterus. No conjunctival pallor. Normocephalic, atraumatic. No pharyngeal erythema. No thyromegaly. CARDIOVASCULAR: S1 and S2 present. No murmurs, rubs, or gallops. PULMONARY: Diminished breath sounds bilaterally with significant expiratory wheezing noted on exam ABDOMEN: Soft, nontender, nondistended, normoactive bowel sounds. No palpable organomegaly. MUSCULOSKELETAL: No joint swelling or deformity. EXTREMITIES: No cyanosis, clubbing, or pedal edema. NEUROLOGICAL: Gross neurological examination did not reveal any focal deficits. SKIN: No rashes. no petechiae. - Labs CBC & Chem 7: 08/22/19 15:07 09/01/19 10:08 Labs: Abnormal Lab Results - Last 24 Hours (Table) 09/03/19 09/03/19 09/03/19 Range/Units 06:42 11:34 16:50 POC Glucose (mg/dL) 129 H 135 H 154 H (75-99) mg/dL Microbiology - Last 24 Hours (Table) 09/01/19 12:27 Fungal Culture - Preliminary Bronchial Washings - Random 09/01/19 12:27 Acid Fast Bacilli Smear - Final Bronchial Washings - Random Acid Fast Bacilli Culture - Preliminary 09/01/19 12:27 Gram Stain - Final Bronchial Washings - Random Bronchial Washings Culture - Final Pseudomonas aeruginosa Klebsiella oxytoca 09/03/19 12:55 Acid Fast Bacilli Culture - Preliminary Bronchial Washings - Random 09/03/19 12:55 Fungal Culture - Preliminary Bronchial Washings - Random 09/03/19 12:55 Bronchial Washings Culture - Preliminary Bronchial Washings - Random Assessment and Plan Assessment: Acute COPD exacerbation fungal infection around the vocal cords Periumbilical pain and tenderness Bilateral apical pleural thickening glaucoma Macular degeneration DVT prophylaxis: subq heparin GI Prophylaxis: Pepcid Plan: Recommend continue current medications, management, and symptomatic treatment. Pulmonary following and continuing with breathing treatments along with steroids. Patient underwent bronchoscopy with BAL today. cultures from previous bronchoscopy finalized showing klebsiella oxytoca and pseudomonas aeruginosa. Patient is maintained on IV Zosyn and will continue this time. Further recommendations to follow. Possible discharge in 24 hours.
--- NOTE | 2019-09-03 22:11 | PCN ---
PROCEDURE NOTE PROCEDURE: Bronchoscopy, airway examination, therapeutic lavage, BAL, right middle lobe. PREOPERATIVE DIAGNOSIS: Retained secretions, chronic obstructive pulmonary disease exacerbation. POSTOPERATIVE DIAGNOSIS: Retained secretions, chronic obstructive pulmonary disease exacerbation. OPERATORS: Dr. Cr and Andres Arcos. ANESTHESIA PROVIDED: General anesthesia. PROCEDURE DESCRIPTION: There was informed consent and universal timeout. The patient's procedure took place in room #1. After the patient was adequately sedated and being fully monitored, the bronchoscope was inserted through the right nostril. It passed through the right nasopharynx into the oropharynx. The hypopharynx was identified and topicalized. Hypopharyngeal structures appeared normal, including anterior commissure, true cords, false cords, arytenoids, piriform sinuses, right and left valleculae and epiglottis. After topicalization, the bronchoscope was pushed through the glottic opening into the trachea. Trachea appeared relatively normal, but there were thick secretions noted throughout the trachea. They were difficult to suction. Tracheal glenna was sharp. The right and left mainstem were topicalized. The right upper lobe and its 3 segments, right middle lobe and its 2 segments, right lower lobe and its 5 segments, left upper lobe proper and its 2 segments, lingula and its 2 segments, and the left lower lobe and its 4 segments all had similar findings of diffuse airway erythema and hyperemia. There was diffuse bronchitis throughout. The airways were very red. There was mucosal friability and vascular engorgement. There was no dominant mass or tumor. The secretions were very thick and difficult to suction. They were suctioned with the aid of saline lavage. Next the bronchoscope was wedged into the right middle lobe. Thirty mL was recovered and will be sent to the laboratory for analysis. The patient tolerated the procedure well. Additional secretions were removed with saline lavage. The bronchoscope was withdrawn and the patient will be recovered. There was no immediate complication. MMODL / IJN: [id number] /
[2019-09-04] MEDS: methylPREDNISolone SOD SUCCI 125 MG/2 ML VIAL IV SCH ×2 (00:38→06:41)
[2019-09-04] MEDS: PIPERACILLIN-TAZOBACTAM 3.375 GM in SODIUM CHLORIDE 0.9% 100 ML IVPB SCH (06:41)
[2019-09-04 06:58] LABS: Glucose,Whole Blood 137 mg/dL (75-99)
[2019-09-04 07:56] LABS: African American GFR (CKD) >90 (>60 ml/min/1.73 sqM); Anion Gap 4 mmol/L; Blood Urea Nitrogen 16 mg/dL (9-20); Calcium 7.5 mg/dL (8.4-10.2); Carbon Dioxide 34 mmol/L (22-30); Chloride 92 mmol/L (98-107); Glucose 118 mg/dL (74-99); Non-African American GFR(CKD) >90 (>60 ml/min/1.73 sqM); Potassium 3.4 mmol/L (3.5-5.1); Sodium 130 mmol/L (137-145)
[2019-09-04] MEDS: INSULIN ASPART (NovoLOG) 100 UNIT/ML VIAL SQ SCH ×2 (08:10→12:16)
[2019-09-04] MEDS: IPRATROPIUM-ALBUTEROL 3 ML NEB INHALATION SCH ×2 (08:10→14:10)
[2019-09-04] MEDS: BUDESONIDE 1 MG/2 ML NEBU INHALATION SCH (08:10)
[2019-09-04] MEDS: FORMOTEROL FUMARATE 20 MCG/2 ML NEBU INHALATION SCH (08:10)
[2019-09-04] MEDS ORDERED: POTASSIUM CHLORIDE ER 20 MEQ TAB.ER PO STA (08:24)
[2019-09-04] MEDS: ACETAMINOPHEN TAB 325 MG TAB PO PRN (09:09)
[2019-09-04] MEDS: HEPARIN SODIUM,PORCINE 5,000 UNIT/ML 1 ML VIAL SQ SCH (09:10)
[2019-09-04] MEDS: FLUCONAZOLE 100 MG TAB PO SCH (09:10)
[2019-09-04] MEDS: [UNRECOGNIZED DRUG - OTHER] PO SCH (09:10)
[2019-09-04] MEDS: PANTOPRAZOLE 40 MG TABLET PO SCH (09:10)
[2019-09-04] MEDS: NYSTATIN 100,000 UNIT/ML SUSP 500,000 UNIT/5 ML CUP PO SCH (09:11)
--- NOTE | 2019-09-04 09:32 | P.PN ---
Subjective Progress Note Date: 09/03/19 Principal diagnosis: Abnormal computed tomography scan abdomen, Herring's esophagus, abdominal pain Patient is seen lying in bed. He is tolerated diet. He does report some left lower quadrant abdominal pain. Objective - Vital Signs Vital signs: Vital Signs Temp 97.7 F 09/03/19 13:19 Pulse 74 09/03/19 15:20 Resp 18 09/03/19 15:20 BP 135/65 09/03/19 13:19 Pulse Ox 98 09/03/19 15:12 Intake & Output 09/02/19 09/03/19 09/03/19 18:59 06:59 18:59 Intake Total 100 480 100 Balance 100 480 100 Intake: IV 100 100 Piperacillin-Tazobactam 3 100 .375 gm In Sodium Chloride 0.9% 100 ml @ 25 mls/hr IVPB Q8H [facility] Rx#: [id number] Oral 480 Other: Voiding Method Toilet Toilet # Voids 2 - Exam On physical examination, patient appears comfortable in no apparent distress. HEAD: Normocephalic, atraumatic. EYES: No scleral icterus. No conjunctival injection. MOUTH: No lesions, tongue midline. NECK: Trachea midline, no gross abnormalities. CHEST: Decreased air entry in all lung malagon ABDOMEN: Soft, mildly tender to palpation in the left lower quadrant. Bowel sounds are positive. No organomegaly. No guarding or rigidity. EXTREMITIES: No pedal edema. SKIN: No rashes, no jaundice. NEUROLOGIC: Alert and oriented x3. No focal deficits. - Labs CBC & Chem 7: 08/22/19 15:07 09/04/19 06:47 Labs: Abnormal Lab Results - Last 24 Hours (Table) 09/02/19 09/02/19 09/03/19 Range/Units 16:51 20:24 06:42 POC Glucose (mg/dL) 172 H 125 H 129 H (75-99) mg/dL 09/03/19 Range/Units 11:34 POC Glucose (mg/dL) 135 H (75-99) mg/dL Microbiology - Last 24 Hours (Table) 09/01/19 12:27 Gram Stain - Final Bronchial Washings - Random Bronchial Washings Culture - Final Pseudomonas aeruginosa Klebsiella oxytoca Assessment and Plan (1) Abnormal CT of the abdomen Narrative/Plan: 64-year-old male with multiple medical comorbidities including prior tobacco abuse and COPD who presented to the hospital for evaluation of worsening shortness of breath. Currently being treated for exacerbation of his COPD. The patient has complained of persistent sharp epigastric abdominal pain and compute d tomography scan of the abdomen was performed in evaluation with findings of gastric wall thickening of the fundus with a gastric mass not excluded. EGD performed with no abdominal mass noted, however Herring's esophagus was seen. Current Visit: Yes Status: Acute Code(s): R93.5 - ABN FINDINGS ON DX IMAGING OF ABD REGIONS, INC RETROPERITON SNOMED Code(s): 89245255635342356 (2) Abdominal pain Current Visit: No Status: Acute Code(s): R10.9 - UNSPECIFIED ABDOMINAL PAIN SNOMED Code(s): 61450238 Plan: Supportive care Okay for diet Bentyl was added as needed for abdominal pain Continue Protonix therapy No Herring's esophagus was seen on EGD and patient will need repeat EGD in 2-3 years for monitoring Thank you for allowing us to participate in the care of the patient we will continue to follow
--- NOTE | 2019-09-04 11:16 | P.PN ---
Subjective Progress Note Date: 09/04/19 Principal diagnosis: Acute exacerbation of chronic obstructive pulmonary disease The patient is seen today 08/28/2019 in follow-up on the regular medical floor. He is awake and alert in no acute distress. He is still somewhat bronchospastic and wheezy. Stating not much improved over the past couple of days. He remains on IV Solu-Medrol bronchodilators and antibiotics. Chest x- ray revealed no acute infiltrate. Maintaining good O2 saturations in the mid 90s on room air. She's afebrile. Hemodynamically stable. The patient is seen today 08/29/2019 in follow-up on the regular medical floor. He is currently sitting up in a chair at the bedside. Awake and alert in no acute distress. States he is breathing about the same. No significant improvement. Continues to be bronchospastic and wheezy. Maintained on DuoNeb inhalations, Pulmicort and Perforomist inhalations, IV Solu-Medrol. Maintaining O2 saturations in the 90s on room air. He's been afebrile. Hemodynamically stable. Plan is for bronchoscopy with BAL today. The patient is seen today 08/30/2019 follow-up on the regular medical floor. He is awake and alert in no acute distress. Maintaining O2 saturations in the 90s on room air. He is afebrile. Hemodynamically stable. Doing better today co mpared to yesterday. Sitting up in a chair at the bedside. He did undergo bronchoscopy with BAL and copious amounts of thick secretions were suctioned, also noted oral candidiasis. Cytology and fluid analysis pending. Sodium 129. Potassium 3.7. Creatinine 0.66. Remains on doxycycline, Diflucan, IV Solu- Medrol and bronchodilators. The patient is seen today 08/31/2019 in follow-up on the regular medical floor. He is up ambulating in his room. Feeling better today compared to yesterday. Still somewhat bronchospastic and wheezing. He continues to maintain good O2 saturations in the 90s on room air. He's been afebrile. Hemodynamically stable. Sodium 128. Potassium 4.2. Creatinine 0.60. Remains on doxycycline, Diflucan, IV Solu-Medrol and bronchodilators. On 09/01/2019 patient seen in follow-up on the regular medical surgical floor. He still feels that his breathing has not much improved despite the medical treatment, patient is status post bronchoscopy with BAL on 08/29/2019. " Lavage cultures are still pending, cytology is pending. Room air pulse ox is 90%, no fever or chills, hemodynamically stable, despite the medical treatment patient's chest remains very noisy, diffuse wheezes and rhonchi. Patient remains on combination of Pulmicort and Perforomist, breathing treatments, IV Solu-Medrol. On 09/02/2019 patient seen in follow-up on general medical floor, he states he's had limited improvement in terms of his breathing, still quite bronchospastic, and dyspneic with any exertion. His bronchial lavage Gram stain shows moderate epithelial cells, many gram-negative bacilli, many gram-positive cocci, and moderate budding yeast, final cultures pending. Room air pulse ox is 98%, patient is afebrile, he is on oral Diflucan, Tessalon Perles, Mucinex, IV steroids, Zosyn, and nebulized bronchodilators, his been maximized on medical treatment, and despite that is still quite dyspneic and bronchospastic, we spoke to him about possibility of doing another repeat bronchoscopy with BAL tomorrow, and patient is agreeable to proceed. On 09/04/2019 patient seen in follow-up on general medical floor, he is feeling better today, he status post a repeat bronchoscopy with BAL yesterday on 2019, and a large amount of purulent secretions was again suctioned out. Bronchial wash cytology is pending, previous bronchoscopy and lavage cultures were positive for pseudomonas aeruginosa and Klebsiella oxytoca, and patient had been on IV Zosyn. Patient also continues on Diflucan. He is sounding and breathing easier today, vital signs are stable. Room air pulse ox is 98%, hemodynamically patient is stable, no fever or chills. Objective - Vital Signs Vital signs: Vital Signs Temp 98.2 F 09/04/19 07:00 Pulse 82 09/04/19 09:06 Resp 18 09/04/19 07:00 BP 125/68 09/04/19 09:06 Pulse Ox 98 09/04/19 07:00 Intake & Output 09/03/19 09/04/19 09/04/19 18:59 06:59 18:59 Intake Total 100 Output Total 220 Balance -120 Weight 83.915 kg Intake: IV 100 Output: Urine 220 Other: Voiding Method Toilet Toilet Toilet - Exam GENERAL EXAM: Alert, very pleasant, 64-year-old white male, on room air, with a pulse ox of 98%, comfortable in no apparent distress. HEAD: Normocephalic/atraumatic. EYES: Normal reaction of pupils, equal size. Conjunctiva pink, sclera white. NOSE: Clear with pink turbinates. THROAT: No erythema or exudates. NECK: No masses, no JVD, no thyroid enlargement, no adenopathy. CHEST: No chest wall deformity. Symmetrical expansion. LUNGS: Equal air entry with some scattered wheezes, but improved on today's exam compared to yesterday CVS: Regular rate and rhythm, normal S1 and S2, no gallops, no murmurs, no rubs ABDOMEN: Soft, nontender. No hepatosplenomegaly, normal bowel sounds, no guarding or rigidity. EXTREMITIES: No clubbing, no edema, no cyanosis, 2+ pulses and upper and lower extremities. MUSCULOSKELETAL: Muscle strength and tone normal. SPINE: No scoliosis or deformity SKIN: No rashes CENTRAL NERVOUS SYSTEM: Alert and oriented -3. No focal deficits, tone is normal in all 4 extremities. PSYCHIATRIC: Alert and oriented -3. Appropriate affect. Intact judgment and insight. - Labs CBC & Chem 7: 08/22/19 15:07 09/04/19 06:47 Labs: Abnormal Lab Results - Last 24 Hours (Table) 09/03/19 09/03/19 09/03/19 Range/Units 11:34 16:50 20:57 Sodium (137-145) mmol/L Potassium (3.5-5.1) mmol/L Chloride (98-107) mmol/L Carbon Dioxide (22-30) mmol/L Creatinine (0.66-1.25) mg/dL Glucose (74-99) mg/dL POC Glucose (mg/dL) 135 H 154 H 182 H (75-99) mg/dL Calcium (8.4-10.2) mg/dL 09/04/19 09/04/19 Range/Units 06:47 06:57 Sodium 130 L (137-145) mmol/L Potassium 3.4 L (3.5-5.1) mmol/L Chloride 92 L (98-107) mmol/L Carbon Dioxide 34 H (22-30) mmol/L Creatinine 0.62 L (0.66-1.25) mg/dL Glucose 118 H (74-99) mg/dL POC Glucose (mg/dL) 137 H (75-99) mg/dL Calcium 7.5 L (8.4-10.2) mg/dL Microbiology - Last 24 Hours (Table) 09/03/19 12:55 Acid Fast Bacilli Smear - Final Bronchial Washings - Random Acid Fast Bacilli Culture - Preliminary 09/03/19 12:55 Gram Stain - Preliminary Bronchial Washings - Random Bronchial Washings Culture - Preliminary 09/03/19 12:55 Fungal Culture - Preliminary Bronchial Washings - Random 09/01/19 12:27 Fungal Culture - Preliminary Bronchial Washings - Random 09/01/19 12:27 Acid Fast Bacilli Smear - Final Bronchial Washings - Random Acid Fast Bacilli Culture - Preliminary 09/01/19 12:27 Gram Stain - Final Bronchial Washings - Random Bronchial Washings Culture - Final Pseudomonas aeruginosa Klebsiella oxytoca Assessment and Plan Plan: Assessment: Acute exacerbation of COPD, slow improvement, status post bronchoscopy with BAL on 08/29/2019, and repeat bronchoscopy with BAL on 09/03/2019. Acute purulent tracheobronchitis and some component of hemoptysis secondary to bronchitis. Resolved. Bronchial wash cultures showed pseudomonas aeruginosa and Klebsiella oxytoca Acute hemoptysis. Resolved Chronic biapical pulmonary scarring New onset atrial fibrillation upon his admission, presently in normal sinus rhythm. History of C. difficile colitis. Plan: Patient is improving, vital signs are stable, afebrile, on room air. Less wheezy and congested, we'll switch antibiotic coverage to oral Levaquin, switch the IV steroids to oral prednisone, increase ambulation, no hemoptysis, no fever or chills, will recommend discharge home today prednisone taper, outpatient course of oral Levaquin, and follow-up with Dr. Woods in 7-10 days I performed a history & physical examination of the patient and discussed their management with my nurse practitioner, Luana Arcos. I reviewed the nurse practitioner's note and agree with the documented findings and plan of care. Lung sounds are positive for diffuse wheezes throughout the lung malagon. The findings and the impression was discussed with the patient. I attest to the documentation by the nurse practitioner. Time with Patient: Less than 30
[2019-09-04 11:56] LABS: Glucose,Whole Blood 112 mg/dL (75-99)
[2019-09-04] MEDS ORDERED: LEVOFLOXACIN 500 MG TAB PO SCH (12:00)
--- NOTE | 2019-09-04 15:19 | P.DS ---
Providers Date of admission: 08/24/19 10:26 Expected date of discharge: 09/04/19 Attending physician: Luan Page MD Consults: 08/22/19 16:11 Consult Physician Routine Consulting Provider: Jacques Mitchell Consult Reason/Comments: copd Do you want consulting provider notified?: Yes 08/31/19 08:31 Consult Physician Urgent Consulting Provider: Steve Elmore Consult Reason/Comments: stomach mass, with pain Do you want consulting provider notified?: Yes Primary care physician: Bia Anderson [facility] Course: Final diagnosis Acute COPD exacerbation fungal infection around the vocal cords Periumbilical pain and tenderness Bilateral apical pleural thickening glaucoma Macular degeneration DVT prophylaxis: subq heparin GI Prophylaxis: Pepcid Discharge disposition Patient is being discharged in a stable condition with guarded prognosis to Home. Patient will follow-up with Dr. Anderson upon discharge. Patient also instructed to follow-up with pulmonary and GI in the outpatient setting. Patient will continue with home care in the outpatient setting as well. Patient will continue with a short course of oral antibiotics in the form of Levaquin 500 mg daily for the next 7 days. Patient will also continue on a prednisone taper in the outpatient setting. Total time taken is 35 minutes. History of present illness This is an 64-year-old male who was recently admitted with COPD exacerbation and was being closely monitored. Patient was being closely monitored by pulmonary and GI. Patient underwent EGD with biopsies and patient will follow-up with GI in the outpatient setting. Patient also underwent bronchoscopy with BAL twice with individual fluid analysis showing Klebsiella oxytoca along with pseudomonas aeruginosa . Patient was maintained on Zosyn and will continue with oral Levaquin in the outpatient setting for another week. Patient will follow-up with primary care provider along with pulmonary in the outpatient setting as well. Patient does have a nebulizer and will continue on DuoNeb's along with albuterol treatments and a prednisone taper.Infectious disease was following. Patient will also follow-up with home care in the outpatient setting. Currently no reports of chest pain, Worsening shortness of breath, or palpitations. Patient is afebrile. No reports of nausea or vomiting and patient is tolerating diet. On exam vital signs are stable. Temp is 98.2F, pulse is 53, respirations are 18, blood pressure is 148/51, oxygen saturation is 98% on room air. Cardio S1, S2 are muffled. Respiratory shows diminished breath sounds at the bases with a few scattered rhonchi noted. Some mild expiratory wheezing noted. Abdomen is soft and nontender. Nervous system shows No focal deficits. Please refer to medication reconciliation sheet for a list of medications. Patient Condition at Discharge: Stable Plan - Discharge Summary Discharge Rx Participant: Yes New Discharge Prescriptions: New Dicyclomine [Bentyl] 10 mg PO QID PRN #20 cap PRN Reason: STOMACH PAIN Fluconazole [Diflucan] 100 mg PO BID 5 Days #10 tab Levofloxacin [Levaquin] 500 mg PO DAILY 7 Days #7 tab Pantoprazole [Protonix] 40 mg PO BID 30 Days #60 tablet. predniSONE 10 mg PO DIRECTED #30 tab Ipratropium-Albuterol Nebulize [Duoneb 0.5 mg-3 mg/3 ml Soln] 3 ml INHALATION RT-Q4H PRN ml PRN Reason: Shortness Of Breath Or Wheezing Ipratropium-Albuterol Nebulize [Duoneb 0.5 mg-3 mg/3 ml Soln] 3 ml INHALATION RT-QID 30 Days #90 ml Continue Latanoprost [Xalatan 0.005%] 1 drop LEFT EYE HS Vit C/E/Zn/Coppr/Lutein/Zeaxan [Preservision Areds 2 Softgel] 1 tab PO DAILY Albuterol Inhaler [Ventolin Hfa Inhaler] 1 puff INHALATION RT-Q6H PRN PRN Reason: Shortness Of Breath Discharge Medication List Latanoprost [Xalatan 0.005%] 1 drop LEFT EYE HS 10/31/17 [History] Albuterol Inhaler [Ventolin Hfa Inhaler] 1 puff INHALATION RT-Q6H PRN 08/22/19 [History] Vit C/E/Zn/Coppr/Lutein/Zeaxan [Preservision Areds 2 Softgel] 1 tab PO DAILY 08/22/19 [History] Dicyclomine [Bentyl] 10 mg PO QID PRN #20 cap 09/04/19 [Rx] Fluconazole [Diflucan] 100 mg PO BID 5 Days #10 tab 09/04/19 [Rx] Ipratropium-Albuterol Nebulize [Duoneb 0.5 mg-3 mg/3 ml Soln] 3 ml INHALATION RT-Q4H PRN ml 09/04/19 [Rx] Ipratropium-Albuterol Nebulize [Duoneb 0.5 mg-3 mg/3 ml Soln] 3 ml INHALATION RT-QID 30 Days #90 ml 09/04/19 [Rx] Levofloxacin [Levaquin] 500 mg PO DAILY 7 Days #7 tab 09/04/19 [Rx] Pantoprazole [Protonix] 40 mg PO BID 30 Days #60 tablet. 09/04/19 [Rx] predniSONE 10 mg PO DIRECTED #30 tab 09/04/19 [Rx] Follow up Appointment(s)/Referral(s): [facility] [NON-STAFF] - As Needed Clementine Sanchez MD [STAFF PHYSICIAN] - 2 Weeks Edmond Cr DO [Doctor of Osteopathic Medicine] - 09/19/19 3:00 pm (With Brooke Apodaca) [facility], [NON-STAFF] - 1-2 Days Bia Anderson MD [Primary Care Provider] - 1-2 days (office will call with appointment date and time.) Ambulatory/Diagnostic Orders: Basic Metabolic Panel [LAB.AMB] Time Frame: 3 Days, Location: None Selected Patient Instructions/Handouts: COPD (Chronic Obstructive Pulmonary Disease) (DC) Activity/Diet/Wound Care/Special Instructions: Activity Limited until follow-up Continue current diet Continue with antibiotics for 7 days then may discontinue Continue with prednisone taper Follow-up with multiple medical consultations in the outpatient setting Continue with home care Discharge Disposition: HOME WITH HOME HEALTH SERVICES
[2019-09-05 02:25] VITALS: BP 125/68; PULSE 82; TEMP 98.2
--- NOTE | 2019-09-05 05:51 | P.PN ---
Subjective Progress Note Date: 09/04/19 Principal diagnosis: Abnormal computed tomography scan abdomen, Herring's esophagus, abdominal pain Patient is seen lying in bed. He has tolerated his diet and reports of abdomin al pain is improved. Objective - Vital Signs Vital signs: Vital Signs Temp 98.2 F 09/04/19 07:00 Pulse 82 09/04/19 09:06 Resp 18 09/04/19 07:00 BP 125/68 09/04/19 09:06 Pulse Ox 98 09/04/19 07:00 Intake & Output 09/03/19 09/04/19 09/04/19 18:59 06:59 18:59 Intake Total 100 Output Total 220 Balance -120 Weight 83.915 kg Intake: IV 100 Output: Urine 220 Other: Voiding Method Toilet Toilet Toilet - Exam On physical examination, patient appears comfortable in no apparent distress. HEAD: Normocephalic, atraumatic. EYES: No scleral icterus. No conjunctival injection. MOUTH: No lesions, tongue midline. NECK: Trachea midline, no gross abnormalities. CHEST: Decreased air entry in all lung malagon ABDOMEN: Soft, mildly tender to palpation in the left lower quadrant. Bowel sounds are positive. No organomegaly. No guarding or rigidity. EXTREMITIES: No pedal edema. SKIN: No rashes, no jaundice. NEUROLOGIC: Alert and oriented x3. No focal deficits. - Labs CBC & Chem 7: 08/22/19 15:07 09/04/19 06:47 Labs: Abnormal Lab Results - Last 24 Hours (Table) 09/03/19 09/03/19 09/04/19 Range/Units 16:50 20:57 06:47 Sodium 130 L (137-145) mmol/L Potassium 3.4 L (3.5-5.1) mmol/L Chloride 92 L (98-107) mmol/L Carbon Dioxide 34 H (22-30) mmol/L Creatinine 0.62 L (0.66-1.25) mg/dL Glucose 118 H (74-99) mg/dL POC Glucose (mg/dL) 154 H 182 H (75-99) mg/dL Calcium 7.5 L (8.4-10.2) mg/dL 09/04/19 09/04/19 Range/Units 06:57 11:54 Sodium (137-145) mmol/L Potassium (3.5-5.1) mmol/L Chloride (98-107) mmol/L Carbon Dioxide (22-30) mmol/L Creatinine (0.66-1.25) mg/dL Glucose (74-99) mg/dL POC Glucose (mg/dL) 137 H 112 H (75-99) mg/dL Calcium (8.4-10.2) mg/dL Microbiology - Last 24 Hours (Table) 09/03/19 12:55 Gram Stain - Preliminary Bronchial Washings - Random Bronchial Washings Culture - Preliminary 09/03/19 12:55 Acid Fast Bacilli Smear - Final Bronchial Washings - Random Acid Fast Bacilli Culture - Preliminary 09/03/19 12:55 Fungal Culture - Preliminary Bronchial Washings - Random 09/01/19 12:27 Fungal Culture - Preliminary Bronchial Washings - Random 09/01/19 12:27 Acid Fast Bacilli Smear - Final Bronchial Washings - Random Acid Fast Bacilli Culture - Preliminary 09/01/19 12:27 Gram Stain - Final Bronchial Washings - Random Bronchial Washings Culture - Final Pseudomonas aeruginosa Klebsiella oxytoca Assessment and Plan (1) Abnormal CT of the abdomen Narrative/Plan: 64-year-old male with multiple medical comorbidities including prior tobacco abuse and COPD who presented to the hospital for evaluation of worsening shortness of breath. Currently being treated for exacerbation of his COPD. The patient has complained of persistent sharp epigastric abdominal pain and computed tomography scan of the abdomen was performed in evaluation with findings of gastric wall thickening of the fundus with a gastric mass not excluded. EGD performed with no abdominal mass noted, however Herring's esophagus was seen. Status: Acute Code(s): R93.5 - ABN FINDINGS ON DX IMAGING OF ABD REGIONS, INC RETROPERITON SNOMED Code(s): 60825782679111444 (2) Abdominal pain Status: Acute Code(s): R10.9 - UNSPECIFIED ABDOMINAL PAIN SNOMED Code(s): 47562811 Plan: Supportive care Okay for diet Bentyl was added as needed for abdominal pain Continue Protonix therapy No Herring's esophagus was seen on EGD and patient will need repeat EGD in 2-3 years for monitoring Follow-up outpatient for colonoscopy Thank you for allowing us to participate in the care of the patient we will continue to follow
[2019-09-05] MEDS ORDERED: predniSONE 20 MG TAB PO SCH (09:00)
== END 2019-09-04 14:35 | disposition home health service (06) | DRG 191 ==
LOC: EC 14:35 → 1SOBS 16:17 → OBSVTOIN 08-24 10:26 → 4SSUR 08-27 20:53
PROVIDERS: ADMIT Internal Medicine; ATTEND Internal Medicine
PROC: 0B9F8ZX Drainage of Right Lower Lung Lobe, Via Natural or Artificial Opening Endoscopic, Diagnostic (ICD-10-PCS; principal; 2019-08-29 12:00)
PROC: 0B9G8ZX Drainage of Left Upper Lung Lobe, Via Natural or Artificial Opening Endoscopic, Diagnostic (ICD-10-PCS; principal; 2019-08-29 12:00)
PROC: 0B9H8ZX Drainage of Lung Lingula, Via Natural or Artificial Opening Endoscopic, Diagnostic (ICD-10-PCS; principal; 2019-08-29 12:00)
PROC: 0B9D8ZX Drainage of Right Middle Lung Lobe, Via Natural or Artificial Opening Endoscopic, Diagnostic (ICD-10-PCS; principal; 2019-08-29 12:00)
PROC: 0B9C8ZX Drainage of Right Upper Lung Lobe, Via Natural or Artificial Opening Endoscopic, Diagnostic (ICD-10-PCS; principal; 2019-08-29 12:00)
PROC: 0B9J8ZX Drainage of Left Lower Lung Lobe, Via Natural or Artificial Opening Endoscopic, Diagnostic (ICD-10-PCS; principal; 2019-08-29 12:00)
PROC: 0DB58ZX Excision of Esophagus, Via Natural or Artificial Opening Endoscopic, Diagnostic (ICD-10-PCS; 2019-09-01)
PROC: 0B9D8ZZ Drainage of Right Middle Lung Lobe, Via Natural or Artificial Opening Endoscopic (ICD-10-PCS; 2019-09-03)
DX: J44.1 Chronic obstructive pulmonary disease with (acute) exacerbation (principal); B37.0 Candidal stomatitis; K22.70 Barrett's esophagus without dysplasia; K31.9 Disease of stomach and duodenum, unspecified; K44.9 Diaphragmatic hernia without obstruction or gangrene; H35.30 Unspecified macular degeneration; H40.9 Unspecified glaucoma; I48.91 Unspecified atrial fibrillation; Z79.51 Long term (current) use of inhaled steroids; Z79.52 Long term (current) use of systemic steroids; Z79.899 Other long term (current) drug therapy; Z86.19 Personal history of other infectious and parasitic diseases; Z11.59 Encounter for screening for other viral diseases; Z87.11 Personal history of peptic ulcer disease; Z87.891 Personal history of nicotine dependence; R10.9 Unspecified abdominal pain; B96.5 Pseudomonas (aeruginosa) (mallei) (pseudomallei) as the cause of diseases classified elsewhere; B96.89 Other specified bacterial agents as the cause of diseases classified elsewhere; J92.9 Pleural plaque without asbestos
CPT/HCPCS: 31624; 31645; 36415; 43239; 71045; 71046; 74177; 80048; 80051; 80053; 83735; 85025; 87070; 87077; 87102; 87116; 87186; 87205; 87206; 87252; 87496; 87498; 87502; 87529; 87634; 87798; 88108; 88305; 89050; 93005; 94640; 94760; 96374; 99285

== ENCOUNTER 2019-09-05 21:26 | Inpatient (IN) | payer MEDICARE, OTHER ==
--- NOTE | 2019-09-05 22:15 | ED ---
SOB HPI - General Chief Complaint: Shortness of Breath Stated Complaint: SOB, limbs swelling Time Seen by Provider: 09/05/19 21:34 Source: patient, RN notes reviewed, old records reviewed Mode of arrival: wheelchair Limitations: no limitations - History of Present Illness Initial Comments: This is a 64-year-old male recent hospital admission for COPD coming in with significant lower extremity edema and diffuse body pain and aches. No fevers states he was tested for Coban was negative. Patient does not feel well admits to persistent shortness of breath but actually Desser from [place] does always have his main complaint today is lower Shorty pain and edema as well as diffuse body aches and pains MD Complaint: shortness of breath, cough -: days(s) Severity: moderate Severity scale (1-10): 4 Quality: dull, aching, throbbing Consistency: constant Improves With: nothing Known History Of: COPD, congestive heart failure Context: recent URI - Related Data Home Medications Medication Instructions Recorded Confirmed Latanoprost [Xalatan 0.005%] 1 drop LEFT EYE HS 10/31/17 09/05/19 Albuterol Inhaler [Ventolin Hfa 1 puff INHALATION RT-Q6H PRN 08/22/19 09/05/19 Inhaler] Vit C/E/Zn/Coppr/Lutein/Zeaxan 1 tab PO DAILY 08/22/19 09/05/19 [Preservision Areds 2 Softgel] predniSONE See Taper PO DIRECTED 09/05/19 09/05/19 Previous Rx's Medication Instructions Recorded Dicyclomine [Bentyl] 10 mg PO QID PRN #20 cap 09/04/19 Fluconazole [Diflucan] 100 mg PO BID 5 Days #10 tab 09/04/19 Ipratropium-Albuterol Nebulize 3 ml INHALATION RT-QID 30 Days #90 09/04/19 [Duoneb 0.5 mg-3 mg/3 ml Soln] ml Levofloxacin [Levaquin] 500 mg PO DAILY 7 Days #7 tab 09/04/19 Pantoprazole [Protonix] 40 mg PO BID 30 Days #60 tablet. 09/04/19 Allergies Allergy/AdvReac Type Severity Reaction Status Date / Time aspirin Allergy Rash/Hives Verified 09/05/19 22:35 Review of Systems ROS Statement: Those systems with pertinent positive or pertinent negative responses have been documented in the HPI. ROS Other: All systems not noted in ROS Statement are negative. Past Medical History Past Medical History: No Reported History, COPD Additional Past Medical History / Comment(s): glaucoma History of Any Multi-Drug Resistant Organisms: None Reported Past Surgical History: Joint Replacement Additional Past Surgical History / Comment(s): LT SHOULDER sx in 2009 Past Psychological History: No Psychological Hx Reported Smoking Status: Former smoker Past Alcohol Use History: Occasional Past Drug Use History: None Reported - Past Family History Daughter(s) Family Medical History: No Reported History General Exam Limitations: no limitations General appearance: alert, in no apparent distress Head exam: Present: atraumatic, normocephalic, normal inspection Eye exam: Present: normal appearance, PERRL, EOMI. Absent: scleral icterus, c onjunctival injection, periorbital swelling ENT exam: Present: normal exam, mucous membranes moist Neck exam: Present: normal inspection. Absent: tenderness, meningismus, lymphadenopathy Respiratory exam: Present: normal lung sounds bilaterally. Absent: respiratory distress, wheezes, rales, rhonchi, stridor Cardiovascular Exam: Present: regular rate, normal rhythm, normal heart sounds. Absent: systolic murmur, diastolic murmur, rubs, gallop, clicks GI/Abdominal exam: Present: soft, normal bowel sounds. Absent: distended, tenderness, guarding, rebound, rigid Extremities exam: Present: normal inspection, full ROM, normal capillary refill. Absent: tenderness, pedal edema, joint swelling, calf tenderness Back exam: Present: normal inspection Neurological exam: Present: alert, oriented X3, CN II-XII intact Psychiatric exam: Present: normal affect, normal mood Skin exam: Present: warm, dry, intact, normal color. Absent: rash Course Vital Signs 09/05/19 21:28 Temperature 98.2 F Pulse Rate 97 Respiratory 16 Rate Blood Pressure 139/85 O2 Sat by Pulse 96 Oximetry - Reevaluation(s) Reevaluation #1: 09/05/19 23:24 Medical records reviewed Reevaluation #2: 09/05/19 23:24 Still shortness of breath and chest pain - Consultations Consultation #1: Spoke with Dr. Cooley agrees to admigrees to [facility] Cooley and af Medical Decision Making - Medical Decision Making 64 male DF for evaluation presents today for evaluation of lower extremity edema COPD exacerbation will admit also rule out covert infection. - Lab Data Result diagrams: 09/05/19 22:37 Lab Results 09/05/19 Range/Units 22:37 WBC 13.3 H (3.8-10.6) k/uL RBC 4.17 L (4.30-5.90) m/uL Hgb 13.2 (13.0-17.5) gm/dL Hct 40.8 (39.0-53.0) % MCV 97.9 (80.0-100.0) fL MCH 31.6 (25.0-35.0) pg MCHC 32.3 (31.0-37.0) g/dL RDW 13.8 (11.5-15.5) % Plt Count 216 (150-450) k/uL Neutrophils % 75 % Lymphocytes % 18 % Monocytes % 5 % Eosinophils % 0 % Basophils % 0 % Neutrophils # 10.0 H (1.3-7.7) k/uL Lymphocytes # 2.4 (1.0-4.8) k/uL Monocytes # 0.7 (0-1.0) k/uL Eosinophils # 0.1 (0-0.7) k/uL Basophils # 0.0 (0-0.2) k/uL - EKG Data -: EKG Interpreted by Me (EKG shows sinus rhythm of 91, DE 124 QRS 92 QTC 457) - Radiology Data Radiology results: report reviewed (Chest x-rays negative for acute disease), image reviewed Disposition Clinical Impression: Chest pain, Congestive heart failure, Acute exacerbation of chronic obstructive pulmonary disease Disposition: ADMITTED IP TO THIS HOSP Condition: Good Is patient prescribed a controlled substance at d/c from ED?: No Referrals: Bia Anderson MD [Primary Care Provider] - 1-2 days
--- NOTE | 2019-09-05 23:00 | XR ---
EXAMINATION TYPE: XR chest 2V DATE OF EXAM: 09/05/2019 COMPARISON: 09/01/2019 HISTORY: Difficulty breathing TECHNIQUE: FINDINGS: Heart and mediastinum are normal. There is some mild pleural thickening and scarring at the lung apices. The other lung malagon are fairly clear. There are no hilar masses. There is no evidence of pleural effusion. Bony thorax is intact. IMPRESSION: Pleural and pulmonary scarring at the apices. No acute lung disease. No change.
[2019-09-05 23:09] LABS: Basophils % (A) 0 %; Eosinophils # (A) 0.1 k/uL (0-0.7); Eosinophils % (A) 0 %; HCT 40.8 % (39.0-53.0); HGB 13.2 gm/dL (13.0-17.5); Lymphocytes # (A) 2.4 k/uL (1.0-4.8); Lymphocytes % (A) 18 %; MCH 31.6 pg (25.0-35.0); MCHC 32.3 g/dL (31.0-37.0); MCV 97.9 fL (80.0-100.0); Mean Platelet Volume 6.9; Monocytes # (A) 0.7 k/uL (0-1.0); Monocytes % (A) 5 %; Neutrophils % (A) 75 %; Platelet Count 216 k/uL (150-450); RBC 4.17 m/uL (4.30-5.90); RDW 13.8 % (11.5-15.5); WBC 13.3 k/uL (3.8-10.6)
[2019-09-05] MEDS ORDERED: IPRATROPIUM-ALBUTEROL 3 ML NEB INHALATION STA (23:21)
[2019-09-05 23:31] LABS: ALT 69 U/L (4-49); AST 40 U/L (17-59); African American GFR (CKD) >90 (>60 ml/min/1.73 sqM); Alkaline Phosphatase 63 U/L (38-126); Anion Gap 8 mmol/L; Blood Urea Nitrogen 16 mg/dL (9-20); Calcium 7.6 mg/dL (8.4-10.2); Carbon Dioxide 28 mmol/L (22-30); Chloride 92 mmol/L (98-107); Creatine Kinase 304 U/L (55-170); Glucose 107 mg/dL (74-99); Non-African American GFR(CKD) >90 (>60 ml/min/1.73 sqM); Potassium 3.2 mmol/L (3.5-5.1); Sodium 128 mmol/L (137-145); Total Bilirubin 0.7 mg/dL (0.2-1.3)
[2019-09-05 23:37] LABS: Partial Thromboplastin Time 22.8 sec (22.0-30.0)
[2019-09-05] MEDS: FUROSEMIDE 10 MG/ML 4 ML VIAL IV SCH (23:58)
[2019-09-06] MEDS: SODIUM CHLORIDE 0.9% 1,000 ML IV SCH ×3 (00:01→21:08)
[2019-09-06] MEDS ORDERED: POTASSIUM CHLORIDE ER 20 MEQ TAB.ER PO STA (00:23)
[2019-09-06] MEDS: FUROSEMIDE 10 MG/ML 4 ML VIAL IV SCH ×3 (00:50→23:31)
[2019-09-06] MEDS: methylPREDNISolone SOD SUCCI 125 MG/2 ML VIAL IV SCH ×5 (01:33→23:31)
[2019-09-06 03:39] LABS: Basophils # (A) 0.1 k/uL (0-0.2); Basophils % (A) 1 %; Eosinophils # (A) 0.1 k/uL (0-0.7); Eosinophils % (A) 1 %; HCT 42.3 % (39.0-53.0); HGB 13.6 gm/dL (13.0-17.5); Lymphocytes % (A) 11 %; MCH 31.6 pg (25.0-35.0); MCHC 32.2 g/dL (31.0-37.0); MCV 98.1 fL (80.0-100.0); Mean Platelet Volume 6.6; Monocytes # (A) 0.4 k/uL (0-1.0); Monocytes % (A) 4 %; Neutrophils # (A) 7.8 k/uL (1.3-7.7); Neutrophils % (A) 83 %; Platelet Count 205 k/uL (150-450); RBC 4.31 m/uL (4.30-5.90); RDW 13.8 % (11.5-15.5); WBC 9.4 k/uL (3.8-10.6)
[2019-09-06 04:02] LABS: African American GFR (CKD) >90 (>60 ml/min/1.73 sqM); Anion Gap 4 mmol/L; Blood Urea Nitrogen 16 mg/dL (9-20); Calcium 7.6 mg/dL (8.4-10.2); Carbon Dioxide 37 mmol/L (22-30); Chloride 89 mmol/L (98-107); Glucose 133 mg/dL (74-99); Non-African American GFR(CKD) >90 (>60 ml/min/1.73 sqM); Potassium 3.7 mmol/L (3.5-5.1); Sodium 130 mmol/L (137-145)
[2019-09-06 06:20] LABS: Glucose,Whole Blood 161 mg/dL (75-99)
[2019-09-06] MEDS: INSULIN ASPART (NovoLOG) 100 UNIT/ML VIAL SQ SCH ×4 (06:41→21:00)
[2019-09-06] MEDS: IPRATROPIUM-ALBUTEROL 3 ML NEB INHALATION SCH ×4 (09:20→20:00)
[2019-09-06] MEDS ORDERED: DICYCLOMINE 10 MG CAP PO PRN (10:11)
[2019-09-06] MEDS: PANTOPRAZOLE 40 MG TABLET PO SCH ×2 (11:26→17:44)
[2019-09-06 12:43] LABS: Glucose,Whole Blood 108 mg/dL (75-99)
[2019-09-06] MEDS: HYDROcodone/APAP 5-325MG 1 EACH TAB PO PRN (12:45)
[2019-09-06 17:38] LABS: Glucose,Whole Blood 159 mg/dL (75-99)
[2019-09-06 20:53] LABS: Glucose,Whole Blood 128 mg/dL (75-99)
[2019-09-06] MEDS: LATANOPROST 0.005% OPHTH DROPS 2.5 ML BTL LEFT EYE SCH (21:08)
[2019-09-06] MEDS ORDERED: LEVOFLOXACIN 500MG-D5W PMX 500 MG in DEXTROSE/WATER 1 100ML.BAG IVPB SCH (22:00)
--- NOTE | 2019-09-06 22:22 | P.HPIM ---
History of Present Illness H&P Date: 09/06/19 Chief Complaint: MYRIAM and Leg swelling Patient is a 64-year-old male with a known history of COPD, previous history of smoking who was recently discharged from the hospital on 09/01/2019, was treated for purulent tracheobronchitis and acute COPD exacerbation. Patient had bronchoscopy with bronchial lavage cultures growing Pseudomonas and Jamila albicans. Patient was discharged home on Levaquin and Diflucan. Patient came back to the hospital due to worsening bilateral lower extremities swelling and diffuse body pains and aches. Denied any fever or chills. Patient has been having persistent shortness of breath since yesterday. Patient was also having exertional dyspnea. Patient was tested for COVID-19 which was negative. Chest x-ray showed pleural and pulmonary scarring at the apices. No acute lung disease. No acute change. EKG showed sinus rhythm with premature supraventricular complexes with frequent PVCs. Laboratory data showed WBC 13.3, hemoglobin 13.6, platelets 205 and neutrophils 7.8 and lymphocytes 1.0 Sodium 128, potassium 3.2, chloride 87, bicarb is 28 Lactic acid 2.2 on admission proBNP 507 Troponin times one 0.015 CK 304 Patient is somewhat poor historian. Review of Systems Constitutional: Patient denies any fever or chills . No generalized weakness or weight loss. Abdomen: Patient denied nausea vomiting and diarrhea and abdominal pain. Cardiovascular: Patient denies any chest pain or short of breath no palpitations. Leg swelling. Respiratory: Patient does have cough without sputum production and does have shortness of breath Neurologic: Patient denied any numbness or tingling headache. Musculoskeletal: Patient denies any complaints of joint swelling or deformity. Skin: Negative Psychiatric: Negative Endocrine: No heat or cold intolerance. No recent weight gain. Genitourinary: No dysuria or hematuria. All other 14 point ROS negative except the above Past Medical History Past Medical History: COPD Additional Past Medical History / Comment(s): glaucoma History of Any Multi-Drug Resistant Organisms: None Reported Past Surgical History: Joint Replacement Additional Past Surgical History / Comment(s): LT SHOULDER sx in 2009 Past Psychological History: No Psychological Hx Reported Smoking Status: Former smoker Past Alcohol Use History: Occasional Additional Past Alcohol Use History / Comment(s): patient says he smoked for 45 years but quit 3 months ago. Drinks alcohol occasionally. Says a six pack lasts him about a month. Lives with daughter and her significant other. Past Drug Use History: None Reported - Past Family History Daughter(s) Family Medical History: No Reported History Medications and Allergies Home Medications Medication Instructions Recorded Confirmed Type Latanoprost [Xalatan 0.005%] 1 drop LEFT EYE HS 10/31/17 09/05/19 History Albuterol Inhaler [Ventolin Hfa 1 puff INHALATION RT-Q6H PRN 08/22/19 09/05/19 History Inhaler] Vit C/E/Zn/Coppr/Lutein/Zeaxan 1 tab PO DAILY 08/22/19 09/05/19 History [Preservision Areds 2 Softgel] Dicyclomine [Bentyl] 10 mg PO QID PRN #20 cap 09/04/19 09/05/19 Rx Fluconazole [Diflucan] 100 mg PO BID 5 Days #10 tab 09/04/19 09/05/19 Rx Ipratropium-Albuterol Nebulize 3 ml INHALATION RT-QID 30 Days #90 09/04/19 09/05/19 Rx [Duoneb 0.5 mg-3 mg/3 ml Soln] ml Levofloxacin [Levaquin] 500 mg PO DAILY 7 Days #7 tab 09/04/19 09/05/19 Rx Pantoprazole [Protonix] 40 mg PO BID 30 Days #60 tablet. 09/04/19 09/05/19 Rx predniSONE See Taper PO DIRECTED 09/05/19 09/05/19 History Allergies Allergy/AdvReac Type Severity Reaction Status Date / Time aspirin Allergy Rash/Hives Verified 09/05/19 22:35 Physical Exam Vitals: Vital Signs Temp Pulse Resp BP BP Pulse Ox 09/06/19 09:32 88 09/06/19 09:21 80 09/06/19 08:00 98.3 F 20 109/70 97 09/06/19 04:00 97.9 F 18 112/64 97 09/06/19 01:43 98.2 F 20 131/70 100 09/06/19 01:03 97.4 F L 73 16 131/70 97 09/06/19 00:18 71 09/06/19 00:01 75 09/05/19 23:31 98 F 84 18 113/81 100 09/05/19 21:28 98.2 F 97 16 139/85 96 Intake and Output 09/05/19 09/06/19 09/06/19 22:59 06:59 14:59 Intake Total 780 Output Total 3775 Balance -2995 Intake: Oral 780 Output: Urine 3775 Other: # Voids 2 Weight 91.626 kg 85.7 kg PHYSICAL EXAMINATION: Patient is lying in the bed comfortably, no acute distress, awake alert and oriented.. HEENT: Normocephalic. Neck is supple. Pupils reactive. Nostrils clear. Oral cavity is moist. Ears reveal no drainage. Neck reveals no JVD, carotid bruits, or thyromegaly. CHEST EXAMINATION: Trachea is central. Symmetrical expansion.Bilateral diffuse wheezing and rhonchi and coarse breath sounds.. CARDIAC: Normal S1, S2 with no gallops. No murmurs ABDOMEN: Soft. Bowel sounds normal. No organomegaly. No abdominal bruits. Extremities: 2+ edema. No clubbing or cyanosis Neurologically awake, alert, oriented x3 with well-coordinated movements. No focal deficits noted Skin: No rash or skin lesions. Psychiatric: Coperative. Nonsuicidal Musculoskeletal: No joint swelling or deformity. Normal range of motion. Results CBC & Chem 7: 09/06/19 03:20 09/06/19 03:20 Labs: Abnormal Lab Results - Last 24 Hours (Table) 09/05/19 09/05/19 09/05/19 Range/Units 22:37 22:37 22:37 WBC 13.3 H (3.8-10.6) k/uL RBC 4.17 L (4.30-5.90) m/uL Neutrophils # 10.0 H (1.3-7.7) k/uL Sodium 128 L (137-145) mmol/L Potassium 3.2 L (3.5-5.1) mmol/L Chloride 92 L (98-107) mmol/L Carbon Dioxide (22-30) mmol/L Glucose 107 H (74-99) mg/dL POC Glucose (mg/dL) (75-99) mg/dL Plasma Lactic Acid Hugo 2.2 H* (0.7-2.0) mmol/L Calcium 7.6 L (8.4-10.2) mg/dL ALT 69 H (4-49) U/L Creatine Kinase 304 H (55-170) U/L Total Protein 5.0 L (6.3-8.2) g/dL Albumin 3.0 L (3.5-5.0) g/dL 09/06/19 09/06/19 09/06/19 Range/Units 03:20 03:20 06:19 WBC (3.8-10.6) k/uL RBC (4.30-5.90) m/uL Neutrophils # 7.8 H (1.3-7.7) k/uL Sodium 130 L (137-145) mmol/L Potassium (3.5-5.1) mmol/L Chloride 89 L (98-107) mmol/L Carbon Dioxide 37 H (22-30) mmol/L Glucose 133 H (74-99) mg/dL POC Glucose (mg/dL) 161 H (75-99) mg/dL Plasma Lactic Acid Hugo (0.7-2.0) mmol/L Calcium 7.6 L (8.4-10.2) mg/dL ALT (4-49) U/L Creatine Kinase (55-170) U/L Total Protein (6.3-8.2) g/dL Albumin (3.5-5.0) g/dL Thrombosis Risk Factor Assmnt - DVT/VTE Prophylaxis DVT/VTE Prophylaxis: Pharmacologic Prophylaxis ordered - Choose All That Apply Each Factor Represents 1 point: Abnormal pulmonary function (COPD) Each Risk Factor Represents 2 Points: Age 61-74 years Thrombosis Risk Factor Assessment Total Risk Factor Score: 3 Thrombosis Risk Factor Assessment Level: Moderate Risk Assessment and Plan Assessment: Worsening shortness of breath due to acute COPD exacerbation with a purulent tracheobronchitis. status post bronchoscopy with BAL on 08/29/2019, and repeat bronchoscopy with BAL on 09/03/2019. Bronchial cultures growing Pseudomonas, Klebsiella and Jamila albicans. Fluid cytopathology showed no malignant cells. Bilateral lower extremity swelling with slightly elevated BNP level possible acute CHF Hypervolemic hyponatremia Hypokalemia Lactic acidosis on admission due to hypoxia resolved now Previous history of smoking Osteoarthritis History of C. difficile colitis DVT prophylaxis with heparin subcu Plan: Patient will be continued on IV steroids and duo nebs. Continue with IV Lasix. Monitor electrolytes closely. 2D echocardiogram will be obtained and cardiology was consulted. Continue with antibiotics in the form of Levaquin due to recent bronchial cultures growing Pseudomonas and Klebsiella. Further recommendations based on the clinical course. Prognosis guarded. Time with Patient: Greater than 30
[2019-09-06] MEDS: HEPARIN SODIUM,PORCINE 5,000 UNIT/ML 1 ML VIAL SQ SCH (23:31)
[2019-09-07 06:11] LABS: Glucose,Whole Blood 181 mg/dL (75-99)
[2019-09-07 06:24] LABS: Basophils % (A) 0 %; Eosinophils % (A) 0 %; HCT 40.3 % (39.0-53.0); HGB 12.7 gm/dL (13.0-17.5); Lymphocytes # (A) 0.7 k/uL (1.0-4.8); Lymphocytes % (A) 6 %; MCH 31.2 pg (25.0-35.0); MCHC 31.4 g/dL (31.0-37.0); MCV 99.4 fL (80.0-100.0); Mean Platelet Volume 6.8; Monocytes # (A) 0.4 k/uL (0-1.0); Monocytes % (A) 4 %; Neutrophils # (A) 10.6 k/uL (1.3-7.7); Neutrophils % (A) 90 %; Platelet Count 178 k/uL (150-450); RBC 4.06 m/uL (4.30-5.90); RDW 13.9 % (11.5-15.5); WBC 11.8 k/uL (3.8-10.6)
[2019-09-07] MEDS: methylPREDNISolone SOD SUCCI 125 MG/2 ML VIAL IV SCH ×3 (06:34→17:28)
[2019-09-07] MEDS: INSULIN ASPART (NovoLOG) 100 UNIT/ML VIAL SQ SCH ×4 (06:34→21:14)
[2019-09-07] MEDS: PANTOPRAZOLE 40 MG TABLET PO SCH ×2 (06:34→16:57)
[2019-09-07 06:41] LABS: African American GFR (CKD) >90 (>60 ml/min/1.73 sqM); Anion Gap 2 mmol/L; Blood Urea Nitrogen 17 mg/dL (9-20); Calcium 7.7 mg/dL (8.4-10.2); Carbon Dioxide 36 mmol/L (22-30); Chloride 91 mmol/L (98-107); Glucose 143 mg/dL (74-99); Non-African American GFR(CKD) >90 (>60 ml/min/1.73 sqM); Potassium 4.1 mmol/L (3.5-5.1); Sodium 129 mmol/L (137-145)
[2019-09-07] MEDS ORDERED: BUDESONIDE 0.5 MG/2 ML NEBU INHALATION SCH (08:00)
[2019-09-07] MEDS: IPRATROPIUM-ALBUTEROL 3 ML NEB INHALATION SCH ×4 (08:19→21:02)
[2019-09-07] MEDS: HYDROcodone/APAP 5-325MG 1 EACH TAB PO PRN (08:35)
[2019-09-07] MEDS: POTASSIUM CHLORIDE ER 20 MEQ TAB.ER PO SCH (08:35)
[2019-09-07] MEDS: FLUCONAZOLE 100 MG TAB PO SCH ×2 (08:35→21:14)
[2019-09-07] MEDS: HEPARIN SODIUM,PORCINE 5,000 UNIT/ML 1 ML VIAL SQ SCH ×2 (08:35→16:57)
[2019-09-07] MEDS ORDERED: VIT A,C & E-LUTEIN-MINERALS 1 EACH TAB PO SCH (09:00)
--- NOTE | 2019-09-07 09:29 | P.CRDCN ---
History of Present Illness Consult date: 09/07/19 Requesting physician: Josep Tovar Consult reason: congestive heart failure History of present illness: History of present illness: This is a 64-year-old male. He does not follow with the what job titles mean. He was seen in March this year for a single episode of atrial fibrillation not requiring anticoagulation. At that time, he had an echocardiogram with mild concentric left ventricular hypertrophy, EF 50-55%, mild tricuspid regurgitation, mild pulmonary hypertension. He was recently hospitalized for COPD exacerbation and acute purulent tracheobronchitis and discharged home on September 03. Patient states he was at home sitting at the table with his son-in-law and daughter and suddenly felt a tingling sensation all over his body and developed swelling special to his lower extremities with achiness to his feet. He also developed significant difficulty ambulating and some minimal shortness of breath but otherwise close to his baseline. Patient came into [facility] emergency center for evaluation. Sodium 129, potassium 4.1, chloride 91, CO2 36, BUN 17 and creatinine 0.68. Blood sugar 143. WBC 11.8 hemoglobin 12.7, platelet count 178. Chest x-ray showed mild pulmonary scarring at apices. No acute lung disease area and no change. Patient was started on Lasix 40 mg every 12 hours. He states he has had significant urinary output and decreased swelling to his feet. He states his feet are still achy and extremely tender to touch. Review Of Systems: Constitutional: No fever, no chills. Reports weakness, fatigue or lethargy. EENT: No headache. No blurred vision or double vision, no loss of vision. No loss of Hearing, no dizziness. No nasal drainage or congestion. No epistaxis. No sore throat. Lungs: reports mild shortness of breath, cough, reports sputum production. Reports wheezing. Cardiovascular: No chest pain, reports lower extremity edema. No palpitations. No paroxysmal nocturnal dyspnea. No orthopnea. No lightheadedness or dizziness. No syncopal episodes. Abdominal: Bilateral lower abdominal pain. No nausea, vomiting. No diarrhea. No constipation. No bloody or tarry stools. No loss of appetite. Genitourinary: No dysuria, increased frequency, urgency. No urinary retention. Musculoskeletal: No myalgias. Reports muscle weakness, reports gait dysfunction, no frequent falls. No back pain. No neck pain. Integumentary: No wounds, no lesions. No rash or pruritus. No unusual bru ising. Neurologic: No aphasia. No facial droop. No change in mentation. No head injury. No headache. No paralysis. No paresthesia. Psychiatric: No depression. No anxiety. No mood swings. Endocrine: No abnormal blood sugars. No weight change. No excessive sweating or thirst. No weight change. Physical examination: Gen: This is a 64-year-old male. He is sitting up in bed and appears to be comfortable and in no acute distress. No respiratory distress is noted. VS: afebrile, heart rate 77, blood pressure 03/21/1964, pulse ox 98% on room air. HEENT: Head is atraumatic, normocephalic. Pupils equal, round. Sclerae is anicteric. NECK: Supple. No JVD. No lymphadenopathy. No thyromegaly. LUNGS: Scattered rhonchi and expiratory wheeze throughout. No intercostal retractions. No accessory muscle usage HEART: Regular rate and rhythm. No murmur. ABDOMEN: Soft. Bowel sounds are present. No masses. No tenderness. EXTREMITIES: Trace bilateral pedal edema. Feet are tender to touch. Dorsalis pedis +1 bilaterally. NEUROLOGICAL: Patient is awake, alert and oriented x3. Cranial nerves 2 through 12 are grossly intact. Assessment: Acute diastolic heart failure with lower extremity edema, new onset COPD Recent treatment for COPD exacerbation and acute purulent tracheal bronchitis Single episode of atrial fibrillation in March of this year not requiring anticoagulation Glaucoma Herring's esophagus Plan: Continue Lasix 40 mg IV every 12 hours Monitor I&O and daily weights Monitor electrolytes and renal function Further recommendations to follow based upon clinical course Thank you kindly for this consultation Nurse practitioner note has been reviewed, I agree with documented findings and plan of care. Patient was seen and examined. Past Medical History Past Medical History: COPD Additional Past Medical History / Comment(s): glaucoma History of Any Multi-Drug Resistant Organisms: None Reported Past Surgical History: Joint Replacement Additional Past Surgical History / Comment(s): LT SHOULDER sx in 2009 Past Psychological History: No Psychological Hx Reported Smoking Status: Former smoker Past Alcohol Use History: Occasional Additional Past Alcohol Use History / Comment(s): patient says he smoked for 45 years but quit 3 months ago. Drinks alcohol occasionally. Says a six pack lasts him about a month. Lives with daughter and her significant other. Past Drug Use History: None Reported - Past Family History Daughter(s) Family Medical History: No Reported History Medications and Allergies Home Medications Medication Instructions Recorded Confirmed Type Latanoprost [Xalatan 0.005%] 1 drop LEFT EYE HS 10/31/17 09/05/19 History Albuterol Inhaler [Ventolin Hfa 1 puff INHALATION RT-Q6H PRN 08/22/19 09/05/19 History Inhaler] Vit C/E/Zn/Coppr/Lutein/Zeaxan 1 tab PO DAILY 08/22/19 09/05/19 History [Preservision Areds 2 Softgel] Dicyclomine [Bentyl] 10 mg PO QID PRN #20 cap 09/04/19 09/05/19 Rx Fluconazole [Diflucan] 100 mg PO BID 5 Days #10 tab 09/04/19 09/05/19 Rx Ipratropium-Albuterol Nebulize 3 ml INHALATION RT-QID 30 Days #90 09/04/19 09/05/19 Rx [Duoneb 0.5 mg-3 mg/3 ml Soln] ml Levofloxacin [Levaquin] 500 mg PO DAILY 7 Days #7 tab 09/04/19 09/05/19 Rx Pantoprazole [Protonix] 40 mg PO BID 30 Days #60 tablet. 09/04/19 09/05/19 Rx predniSONE See Taper PO DIRECTED 09/05/19 09/05/19 History Allergies Allergy/AdvReac Type Severity Reaction Status Date / Time aspirin Allergy Rash/Hives Verified 09/05/19 22:35 Physical Exam Vitals: Vital Signs Temp Pulse Pulse Resp BP Pulse Ox 09/07/19 08:34 84 09/07/19 08:19 76 09/07/19 07:51 98.6 F 77 18 124/63 98 09/07/19 04:00 97.8 F 18 104/62 98 09/07/19 00:00 98.1 F 18 105/55 97 09/06/19 20:13 100 09/06/19 20:00 97.8 F 99 20 120/69 98 09/06/19 16:23 96 09/06/19 16:13 96 09/06/19 16:00 97.9 F 18 122/66 97 09/06/19 12:50 92 09/06/19 12:40 96 09/06/19 11:35 97.5 F L 18 120/59 97 09/06/19 09:32 88 09/06/19 09:21 80 Intake and Output 09/06/19 09/07/19 09/07/19 22:59 06:59 14:59 Intake Total 540 Output Total 1400 1500 Balance -860 -1500 Intake: Oral 540 Output: Urine 1400 1500 Other: Weight 81.5 kg Results 09/07/19 05:42 09/07/19 05:42 CBC 09/07/19 Range/Units 05:42 WBC 11.8 H (3.8-10.6) k/uL RBC 4.06 L (4.30-5.90) m/uL Hgb 12.7 L (13.0-17.5) gm/dL Hct 40.3 (39.0-53.0) % Plt Count 178 (150-450) k/uL Comprehensive Metabolic Panel 09/07/19 Range/Units 05:42 Sodium 129 L (137-145) mmol/L Potassium 4.1 (3.5-5.1) mmol/L Chloride 91 L (98-107) mmol/L Carbon Dioxide 36 H (22-30) mmol/L BUN 17 (9-20) mg/dL Creatinine 0.68 (0.66-1.25) mg/dL Glucose 143 H (74-99) mg/dL Calcium 7.7 L (8.4-10.2) mg/dL Current Medications Generic Name Dose Route Start Last Admin Trade Name Freq PRN Reason Stop Dose Admin Hydrocodone Bitart/Acetaminophen 1 each 09/06/19 11:54 09/07/19 08:35 Laurel 5-325 PO 1 each Q6HR PRN Administration Pain Albuterol/Ipratropium 3 ml 09/06/19 08:00 09/07/19 08:19 Duoneb 0.5 Mg-3 Mg/3 Ml Soln INHALATION 3 ml RT-QID TREVOR Administration Budesonide 0.5 mg 09/07/19 08:00 09/07/19 08:19 Pulmicort INHALATION 0.5 mg RT-BID TREVOR Administration Dicyclomine HCl 10 mg 09/06/19 10:11 Bentyl PO QID PRN STOMACH PAIN Fluconazole 100 mg 09/07/19 09:00 09/07/19 08:35 Diflucan PO 100 mg BID TREVOR Administration Furosemide 40 mg 09/05/19 23:30 09/06/19 23:31 Lasix IV 40 mg Q12H TREVOR Administration Heparin Sodium (Porcine) 5,000 unit 09/07/19 00:00 09/07/19 08:35 Heparin SQ 5,000 unit Q8HR TREVOR Administration Levofloxacin 500 mg/ IV 100 mls @ 100 mls/hr 09/06/19 22:00 09/06/19 22:11 Solution IVPB 100 mls/hr Q24H TREVOR Administration Insulin Aspart 0 unit 09/06/19 07:30 09/07/19 06:34 Novolog SQ 4 unit ACHS TREVOR Administration Protocol Latanoprost 1 drops 09/06/19 21:00 09/06/19 21:08 Xalatan 0.005% LEFT EYE 1 drops HS TREVOR Administration Methylprednisolone Sodium Succinate 60 mg 09/06/19 00:00 09/07/19 06:34 Solu-Medrol IV 60 mg Q6HR TREVOR Administration Pantoprazole Sodium 40 mg 09/06/19 10:15 09/07/19 06:34 Protonix PO 40 mg AC-BID TREVOR Administration Potassium Chloride 20 meq 09/07/19 09:00 09/07/19 08:35 K-Dur 20 PO 09/09/19 09:01 20 meq DAILY TREVOR Administration Intake and Output 09/06/19 09/07/19 09/07/19 22:59 06:59 14:59 Intake Total 540 Output Total 1400 1500 Balance -860 -1500 Intake: Oral 540 Output: Urine 1400 1500 Other: Weight 81.5 kg 09/07/19 05:42 09/07/19 05:42
[2019-09-07 11:35] LABS: Glucose,Whole Blood 169 mg/dL (75-99)
[2019-09-07] MEDS: FUROSEMIDE 10 MG/ML 4 ML VIAL IV SCH (12:20)
--- NOTE | 2019-09-07 12:32 | CONS ---
CONSULTATION This is a 64-year-old male who apparently was admitted to the hospital through the emergency room on September 04 with complaints of body swelling. He apparently complains of diffuse edema throughout his body, particularly his legs and ankles as well as body pains and aches. He has been tested for COVID-19 infection and that was negative. He was just recently in the hospital with a COPD exacerbation. He had 2 bronchoscopies while he was here, I believe on the day before August 29 which is August 28 and 1 a week later nearly a week later on September 03 I believe. Anyway, from the pulmonary standpoint, he appears to be doing much better. He does admit to some shortness of breath and some wheezing. He has a bit of tightness in his chest and coughing, but again his major reason for being here was lower extremity edema as well as pains and aches throughout his body. Denies any fever, chills. Denies any chest pain or chest discomfort. He is not coughing up any phlegm. On his previous admission, his bronchoscopy which was done twice revealed evidence of both Klebsiella and Pseudomonas. They were sensitive to Levaquin. He was discharged home on Levaquin as well as some prednisone with a burst and taper. CURRENT MEDICATIONS: Include eye drops, albuterol inhaler, I-vitamins, prednisone taper, Bentyl, Diflucan, DuoNeb Levaquin, and Protonix. ALLERGIES: ASPIRIN. MEDICAL HISTORY: COPD and glaucoma. His COPD exacerbation on his last visit was complicated by infections with both Pseudomonas and Klebsiella. SURGICAL HISTORY: Includes left shoulder surgery in 2009. SOCIAL HISTORY: Positive for previous tobacco use. He drinks occasionally. No illicit drug use. FAMILY HISTORY: Family history significant for daughter without any medical issues. He does not know his parents medical history. REVIEW OF SYSTEMS: CONSTITUTIONAL: Diffuse body swelling particularly arms and legs, thigh, ankles and feet as well as abdomen. NEUROLOGIC negative. HEENT negative. CARDIOVASCULAR negative. PULMONARY: Chronic shortness of breath, currently at baseline and certainly better than when he was discharged most recently. negative. negative. RHEUMATOLOGIC negative. IMMUNOLOGIC negative. ENDOCRINOLOGIC negative. DERMATOLOGIC negative. PHYSICAL EXAMINATION: VITAL SIGNS: Current vital signs are reviewed. Temperature is 98.6. Heart rate 84, respiratory rate 18, blood pressure 124/63, mean 83, room air saturation 98%. Appears in no acute distress. There is no respiratory distress. There is no conversational dyspnea or audible wheezing. HEENT: Examination is grossly unremarkable. NECK: Supple. Full range of motion. No adenopathy. Neck veins are flat. CARDIOVASCULAR: Examination reveals regular rhythm rate. Heart rate mid 70s. S1, S2 normal. LUNGS: Some very mild expiratory wheezes. His lung examination actually today is better than when he was discharged last. No crackles. Breath sounds equal bilaterally. Slight prolongation. ABDOMEN: Soft. Does not appear to have ascites or fluid wave. Bowel sounds are noted. Extremities reveal maybe 1+ pitting edema. SKIN: Without rash. NEUROLOGIC: Examination is brief but nonfocal. LABS: Reviewed. White count 11.8, hemoglobin 12.2, hematocrit 40.3. Platelet count 178,000. Sodium 129, potassium 4.1, chloride 91, CO2 36. Anion gap is 2. BUN and creatinine were 17 and 0.68. The rest of his labs were reviewed. Microbiology from his last visit showed evidence of a bronchial washings which were positive for Jamila on August 31 and also bronchial washings were positive for both Pseudomonas aeruginosa and Klebsiella oxytoca on August 31. A chest x-ray on September 04 shows no acute abnormalities. Medications are reviewed. ASSESSMENT: 1. Fluid retention, particularly in his abdominal area and lower extremities, of unclear etiology. 2. Recent admission for COPD exacerbation, status post bronchoscopy x2, with evidence of both Klebsiella oxytoca and Pseudomonas aeruginosa infections, discharged home on Levaquin which was effective against both bacteria. 3. Previous tobacco use. 4. History of glaucoma. 5. Mild hyponatremia. PLAN: Medications are reviewed. I do believe he would benefit from diuretics. I believe he has hypervolemic hyponatremia. His respiratory status is certainly stable. Steroids will be discontinued. That will only worsen the fluid retention. Additional recommendations and suggestions are forthcoming. If he did not finish out his course of Levaquin, he should. We will continue to follow. MMODL / IJN: [id number] /
[2019-09-07 16:38] LABS: Glucose,Whole Blood 182 mg/dL (75-99)
[2019-09-07 19:59] LABS: Glucose,Whole Blood 176 mg/dL (75-99)
[2019-09-07] MEDS: LEVOFLOXACIN 500 MG TAB PO SCH (21:14)
[2019-09-07] MEDS: LATANOPROST 0.005% OPHTH DROPS 2.5 ML BTL LEFT EYE SCH (21:15)
[2019-09-07] MEDS: SYMBICORT 160-4.5 MCG INHALER INHALATION SCH (21:30)
--- NOTE | 2019-09-07 23:18 | P.PN ---
Subjective Progress Note Date: 09/07/19 Principal diagnosis: Acute COPD exacerbation secondary to purulent tracheobronchitis New onset acute diastolic CHF Patient is a 64-year-old male with a known history of COPD, previous history of smoking who was recently discharged from the hospital on 09/01/2019, was treated for purulent tracheobronchitis and acute COPD exacerbation. Patient had bronchoscopy with bronchial lavage cultures growing Pseudomonas and Jamila albicans. Patient was discharged home on Levaquin and Diflucan. Patient came back to the hospital due to worsening bilateral lower extremities swelling and diffuse body pains and aches. Denied any fever or chills. Patient has been having persistent shortness of breath since yesterday. Patient was also having exertional dyspnea. Patient was tested for COVID-19 which was negative. Chest x-ray showed pleural and pulmonary scarring at the apices. No acute lung disease. No acute change. EKG showed sinus rhythm with premature supraventricular complexes with frequent PVCs. Laboratory data showed WBC 13.3, hemoglobin 13.6, platelets 205 and neutrophils 7.8 and lymphocytes 1.0 Sodium 128, potassium 3.2, chloride 87, bicarb is 28 Lactic acid 2.2 on admission proBNP 507 Troponin times one 0.015 CK 304 Patient is somewhat poor historian. 09/07/2019 Patient is currently lying in the bed. Bilateral leg swelling is better co mpared to yesterday. Patient is still having diffuse wheezing and scattered rhonchi on examination of the lung. No fever no chills. Patient is being continued IV Lasix which will be changed to by mouth in the next 24 hours. Cardiology and pulmonary is following. Monitor CBC and BMP tomorrow. Current medications reviewed. Objective - Vital Signs Vital signs: Vital Signs Temp 97.7 F 09/07/19 16:00 Pulse 88 09/07/19 16:04 Resp 18 09/07/19 16:00 BP 115/63 09/07/19 16:00 Pulse Ox 99 09/07/19 16:00 Intake & Output 09/07/19 09/07/19 09/08/19 06:59 18:59 06:59 Intake Total 540 620 Output Total 2900 2525 Balance -2360 -1905 Weight 81.5 kg Intake: Oral 540 620 Output: Urine 2900 2525 - Exam PHYSICAL EXAMINATION: Patient is lying in the bed comfortably, no acute distress, awake alert and oriented.. HEENT: Normocephalic. Neck is supple. Pupils reactive. Nostrils clear. Oral cavity is moist. Ears reveal no drainage. Neck reveals no JVD, carotid bruits, or thyromegaly. CHEST EXAMINATION: Trachea is central. Symmetrical expansion.Bilateral diffuse wheezing and rhonchi and coarse breath sounds.. CARDIAC: Normal S1, S2 with no gallops. No murmurs ABDOMEN: Soft. Bowel sounds normal. No organomegaly. No abdominal bruits. Extremities: 2+ edema. No clubbing or cyanosis Neurologically awake, alert, oriented x3 with well-coordinated movements. No focal deficits noted Skin: No rash or skin lesions. Psychiatric: Coperative. Nonsuicidal Musculoskeletal: No joint swelling or deformity. Normal range of motion. - Labs CBC & Chem 7: 09/07/19 05:42 09/07/19 05:42 Labs: Abnormal Lab Results - Last 24 Hours (Table) 09/06/19 09/07/19 09/07/19 Range/Units 20:51 05:42 05:42 WBC 11.8 H (3.8-10.6) k/uL RBC 4.06 L (4.30-5.90) m/uL Hgb 12.7 L (13.0-17.5) gm/dL Neutrophils # 10.6 H (1.3-7.7) k/uL Lymphocytes # 0.7 L (1.0-4.8) k/uL Sodium 129 L (137-145) mmol/L Chloride 91 L (98-107) mmol/L Carbon Dioxide 36 H (22-30) mmol/L Glucose 143 H (74-99) mg/dL POC Glucose (mg/dL) 128 H (75-99) mg/dL Calcium 7.7 L (8.4-10.2) mg/dL 09/07/19 09/07/19 09/07/19 Range/Units 06:10 11:32 16:33 WBC (3.8-10.6) k/uL RBC (4.30-5.90) m/uL Hgb (13.0-17.5) gm/dL Neutrophils # (1.3-7.7) k/uL Lymphocytes # (1.0-4.8) k/uL Sodium (137-145) mmol/L Chloride (98-107) mmol/L Carbon Dioxide (22-30) mmol/L Glucose (74-99) mg/dL POC Glucose (mg/dL) 181 H 169 H 182 H (75-99) mg/dL Calcium (8.4-10.2) mg/dL 09/07/19 Range/Units 19:58 WBC (3.8-10.6) k/uL RBC (4.30-5.90) m/uL Hgb (13.0-17.5) gm/dL Neutrophils # (1.3-7.7) k/uL Lymphocytes # (1.0-4.8) k/uL Sodium (137-145) mmol/L Chloride (98-107) mmol/L Carbon Dioxide (22-30) mmol/L Glucose (74-99) mg/dL POC Glucose (mg/dL) 176 H (75-99) mg/dL Calcium (8.4-10.2) mg/dL Assessment and Plan Assessment: Worsening shortness of breath due to acute COPD exacerbation with a purulent tracheobronchitis. status post bronchoscopy with BAL on 08/29/2019, and repeat bronchoscopy with BAL on 09/03/2019. Bronchial cultures growing Pseudomonas, Klebsiella and Jamila albicans. Fluid cytopathology showed no malignant cells. Bilateral lower extremity swelling with slightly elevated BNP level Due to acute CHF with diastolic dysfunction Single episode of atrial fibrillation March 2019. Not requiring anticoagulation. Herring's esophagus Hypervolemic hyponatremia Hypokalemia Lactic acidosis on admission due to hypoxia resolved now Previous history of smoking Osteoarthritis History of C. difficile colitis DVT prophylaxis with heparin subcu Plan: Patient will be continued on IV steroids and duo nebs. Continue with IV Lasix 40mg Q12. Monitor electrolytes closely. 2D echocardiogram will be obtained and cardiology is following. Continue with antibiotics in the form of Levaquin due to recent bronchial cultures growing Pseudomonas and Klebsiella. Further recommendations based on the clinical course. Prognosis guarded. Time with Patient: Greater than 30
[2019-09-08] MEDS: methylPREDNISolone SOD SUCCI 125 MG/2 ML VIAL IV SCH ×3 (00:30→19:31)
[2019-09-08] MEDS: HEPARIN SODIUM,PORCINE 5,000 UNIT/ML 1 ML VIAL SQ SCH ×2 (00:31→19:31)
[2019-09-08] MEDS: FUROSEMIDE 10 MG/ML 4 ML VIAL IV SCH ×3 (00:31→23:27)
[2019-09-08] MEDS ORDERED: HEPARIN SODIUM,PORCINE 5,000 UNIT/ML 1 ML VIAL IV PRN (01:37)
[2019-09-08] MEDS ORDERED: HEPARIN SODIUM,PORCINE 5,000 UNIT/ML 1 ML VIAL IV ONE (01:37)
[2019-09-08] MEDS ORDERED: DILTIAZEM DRIP BOLUS FROM BAG 1 MG SOLN IV ONE (01:40)
[2019-09-08] MEDS ORDERED: HEPARIN SOD,PORK IN 0.45% NACL 25,000 UNIT in 0.45% NACL 1 250ML.BAG IV SCH (01:45)
[2019-09-08] MEDS: DILTIAZEM 125 MG in SODIUM CHLORIDE 0.9% 100 ML IV SCH (02:37)
[2019-09-08 06:15] LABS: Glucose,Whole Blood 157 mg/dL (75-99)
[2019-09-08] MEDS: INSULIN ASPART (NovoLOG) 100 UNIT/ML VIAL SQ SCH ×4 (06:28→20:39)
[2019-09-08] MEDS: PANTOPRAZOLE 40 MG TABLET PO SCH ×2 (06:29→17:11)
[2019-09-08 06:49] LABS: Basophils % (A) 0 %; Eosinophils % (A) 0 %; HCT 41.5 % (39.0-53.0); HGB 13.2 gm/dL (13.0-17.5); Lymphocytes # (A) 0.7 k/uL (1.0-4.8); Lymphocytes % (A) 5 %; MCH 31.4 pg (25.0-35.0); MCHC 31.8 g/dL (31.0-37.0); MCV 98.8 fL (80.0-100.0); Mean Platelet Volume 6.7; Monocytes # (A) 0.4 k/uL (0-1.0); Monocytes % (A) 3 %; Neutrophils # (A) 12.3 k/uL (1.3-7.7); Neutrophils % (A) 91 %; Platelet Count 192 k/uL (150-450); RDW 13.7 % (11.5-15.5); WBC 13.5 k/uL (3.8-10.6)
[2019-09-08 07:45] LABS: African American GFR (CKD) >90 (>60 ml/min/1.73 sqM); Anion Gap 5 mmol/L; Blood Urea Nitrogen 17 mg/dL (9-20); Calcium 7.9 mg/dL (8.4-10.2); Carbon Dioxide 34 mmol/L (22-30); Chloride 90 mmol/L (98-107); Glucose 155 mg/dL (74-99); Non-African American GFR(CKD) >90 (>60 ml/min/1.73 sqM); Potassium 3.8 mmol/L (3.5-5.1); Sodium 129 mmol/L (137-145)
[2019-09-08] MEDS: FLUCONAZOLE 100 MG TAB PO SCH ×2 (08:10→19:57)
[2019-09-08] MEDS: [UNRECOGNIZED DRUG - OTHER] PO SCH ×2 (08:11→19:57)
[2019-09-08] MEDS: POTASSIUM CHLORIDE ER 20 MEQ TAB.ER PO SCH (08:11)
[2019-09-08] MEDS: IPRATROPIUM-ALBUTEROL 3 ML NEB INHALATION SCH ×4 (08:31→19:33)
[2019-09-08] MEDS: SYMBICORT 160-4.5 MCG INHALER INHALATION SCH ×2 (08:31→19:33)
[2019-09-08] MEDS ORDERED: [UNRECOGNIZED DRUG - OTHER] PO SCH ×2 (09:00)
[2019-09-08] MEDS ORDERED: APIXABAN 5 MG TAB PO SCH (10:45)
[2019-09-08 11:34] LABS: Glucose,Whole Blood 201 mg/dL (75-99)
[2019-09-08 11:40] LABS: Hemoglobin A1C 6.6 % (4.0-6.0)
[2019-09-08] MEDS: METOPROLOL TARTRATE 25 MG TAB PO SCH ×2 (12:15→19:56)
[2019-09-08] MEDS ORDERED: IOPAMIDOL CONTRAST (ORAL USE) VIAL PO PRN (12:22)
--- NOTE | 2019-09-08 12:41 | P.PN ---
Subjective Progress Note Date: 09/08/19 Principal diagnosis: Fluid retention, the possibility of acute exacerbation of CHF On 09/08/2019 patient seen in follow-up on selective care unit. He states he did not have a good night last night, apparently he was was tachycardic, went into A. fib/flutter with a heart rate up in the 120s to 160s range, he was started on Cardizem drip, and heparin drip per weight-based protocol, she is currently in sinus mechanism with a controlled rate, with a rate of 90 BPM, denies any worsening dyspnea, he is on IV Lasix, 40 mg every 12 hours, he has produced 5.2 L in urine output, and he is in -3.3 net fluid balance over the last 24 hours, lower extremity edema has improved. Today's labs have been reviewed, showing white blood cell, 13.5, hemoglobin is 13.2, serum sodium is 129, same as yesterday, potassium is 3.8, chloride is 90, CO2 is 34, BUN is 17, creatinine is 0.59. He remains on fluid restriction of 1200 mL of fluid on the daily basis. Objective - Vital Signs Vital signs: Vital Signs Temp 98.1 F 09/08/19 08:00 Pulse 80 09/08/19 12:18 Resp 16 09/08/19 12:00 BP 121/66 09/08/19 12:00 Pulse Ox 98 09/08/19 12:00 Intake & Output 09/07/19 09/08/19 09/08/19 18:59 06:59 18:59 Intake Total 620 1270.333 308.623 Output Total 2525 2700 1825 Balance -1905 -1429.667 -1516.377 Weight 83.2 kg Intake: IV 40 0.9 @10ml/hr 40 Intake, IV Titration 30.333 68.623 Amount Diltiazem 125 mg In 30.333 Sodium Chloride 0.9% 100 ml @ 10 MG/HR 10 mls/hr IV .[id number] [facility] Rx#: [id number] Heparin Sod,Pork in 0.45% 68.623 NaCl 25,000 unit In 0.45 % NaCl 1 250ml.bag @ 12 UNITS/KG/HR 9.78 mls/hr IV .Q24H [facility] Rx#: [id number] Oral 620 1200 240 Output: Urine 0820 7526 5621 Other: # Voids 5 - Exam GENERAL EXAM: Alert, very pleasant 64-year-old white male, with room air pulse ox of 98% comfortable in no apparent distress. HEAD: Normocephalic/atraumatic. EYES: Normal reaction of pupils, equal size. Conjunctiva pink, sclera white. NOSE: Clear with pink turbinates. THROAT: No erythema or exudates. NECK: No masses, no JVD, no thyroid enlargement, no adenopathy. CHEST: No chest wall deformity. Symmetrical expansion. LUNGS: Equal air entry with no crackles, wheeze, rhonchi or dullness. CVS: Irregular rate and rhythm, normal S1 and S2, no gallops, no murmurs, no rubs ABDOMEN: Soft, nontender. No hepatosplenomegaly, normal bowel sounds, no guarding or rigidity. EXTREMITIES: No clubbing, 1+ lower extremity, no cyanosis, 2+ pulses and upper and lower extremities. MUSCULOSKELETAL: Muscle strength and tone normal. SPINE: No scoliosis or deformity SKIN: No rashes CENTRAL NERVOUS SYSTEM: Alert and oriented -3. No focal deficits, tone is normal in all 4 extremities. PSYCHIATRIC: Alert and oriented -3. Appropriate affect. Intact judgment and insight. - Labs CBC & Chem 7: 09/08/19 06:17 09/08/19 06:17 Labs: Abnormal Lab Results - Last 24 Hours (Table) 09/07/19 09/07/19 09/07/19 Range/Units 05:42 16:33 19:58 WBC (3.8-10.6) k/uL RBC (4.30-5.90) m/uL Neutrophils # (1.3-7.7) k/uL Lymphocytes # (1.0-4.8) k/uL APTT (22.0-30.0) sec Sodium (137-145) mmol/L Chloride (98-107) mmol/L Carbon Dioxide (22-30) mmol/L Creatinine (0.66-1.25) mg/dL Glucose (74-99) mg/dL POC Glucose (mg/dL) 182 H 176 H (75-99) mg/dL Hemoglobin A1c 6.6 H (4.0-6.0) % Calcium (8.4-10.2) mg/dL 09/08/19 09/08/19 09/08/19 Range/Units 06:14 06:17 06:17 WBC 13.5 H (3.8-10.6) k/uL RBC 4.20 L (4.30-5.90) m/uL Neutrophils # 12.3 H (1.3-7.7) k/uL Lymphocytes # 0.7 L (1.0-4.8) k/uL APTT (22.0-30.0) sec Sodium 129 L (137-145) mmol/L Chloride 90 L (98-107) mmol/L Carbon Dioxide 34 H (22-30) mmol/L Creatinine 0.59 L (0.66-1.25) mg/dL Glucose 155 H (74-99) mg/dL POC Glucose (mg/dL) 157 H (75-99) mg/dL Hemoglobin A1c (4.0-6.0) % Calcium 7.9 L (8.4-10.2) mg/dL 09/08/19 09/08/19 Range/Units 06:17 11:27 WBC (3.8-10.6) k/uL RBC (4.30-5.90) m/uL Neutrophils # (1.3-7.7) k/uL Lymphocytes # (1.0-4.8) k/uL APTT 121.3 H* (22.0-30.0) sec Sodium (137-145) mmol/L Chloride (98-107) mmol/L Carbon Dioxide (22-30) mmol/L Creatinine (0.66-1.25) mg/dL Glucose (74-99) mg/dL POC Glucose (mg/dL) 201 H (75-99) mg/dL Hemoglobin A1c (4.0-6.0) % Calcium (8.4-10.2) mg/dL Assessment and Plan Plan: Assessment: #1. Increased swelling in bilateral lower extremities, and abdominal wall, possibly related to new onset of CHF, with previously documented diastolic dysfunction with EF of 50-55%. No evidence of significant valvular disease was noted on the echocardiogram from March 2019, right ventricular systolic pressure was measured at 34.8 mmHg. Echocardiogram showed mild concentric LVH mild tricuspid regurg and mild pulmonary hypertension #2. Recent hospitalization for acute exacerbation of chronic obstructive pulmonary disease, status post bronchoscopies with BAL 2, and bronchial lavage performed on 09/01/2019 showed evidence of pseudomonas aeruginosa, and Klebsiella oxytoca, and Jamila albicans, patient was discharged home on 09/04/2019 on oral course of Levaquin #3. New onset A. fib/A flutter with RVR #4. Hyponatremia, likely hypervolemic. Patient presented with serum sodium of 130, remains on fluid restriction with 1200 mL of fluid #5. Previous episode of atrial fibrillation in March, single episode, patie nt did not require anticoagulation #6. Glaucoma #7. Herring's esophagus #8. Previous history of tobacco use Plan: Continue with IV diuretics, discussed case with cardiology, repeat echocardiog miguel is pending, will continue Levaquin, Diflucan, and IV steroids, breathing treatments, vital signs are stable. Chest x-ray has been reviewed showing no evidence of acute lung disease, chronic pleural and pulmonary scarring at the apices. Vital signs are stable, we'll continue to follow, accurate intake and output, and daily weights. I performed a history & physical examination of the patient and discussed their management with my nurse practitioner, Luana Arcos. I reviewed the nurse pra ctitioner's note and agree with the documented findings and plan of care. Lung sounds are positive for diminished breath sounds. The findings and the impression was discussed with the patient. I attest to the documentation by the nurse practitioner. Time with Patient: Greater than 30
--- NOTE | 2019-09-08 14:39 | PN ---
PROGRESS NOTE Mr. Curran is a gentleman with history of paroxysmal atrial fibrillation, diastolic dysfunction, possible pneumonia. I am recommending that we repeat an echocardiogram and place him on Eliquis 5 mg b.i.d. We will do some fluid restriction for him because of hyponatremia and decrease the Lasix to 40 mg daily. Will stop diltiazem and give metoprolol 25 mg b.i.d. along with Aldactone 25 mg daily. This gentleman has paroxysmal atrial fibrillation, diastolic heart failure, and there was a question of pneumonia. Vitals are stable, no JVD. S1-S2 heard normally. Heart sounds are distantly. Lungs are clear. Abdomen and lower extremity exam is unchanged. Plan is to place him on Eliquis and also discontinue diltiazem, add a beta génesis and continue Aldactone. Prognosis remains guarded for this patient. Hopefully we can discharge him soon. MMODL / IJN: [id number] /
--- NOTE | 2019-09-08 15:12 | CT ---
"EXAMINATION TYPE: CT abdomen pelvis wo con DATE OF EXAM: 09/08/2019 COMPARISON: CT 08/30/2019 HISTORY: Right lower quadrant pain CT DLP: 657.9 mGycm Automated exposure control for dose reduction was used. TECHNIQUE: Helical acquisition of images from the lung bases through the pelvis following oral contr ast only. FINDINGS: The right rectus muscle shows abnormal thickening inferiorly. This is an interval finding. There is increased attenuation. LUNG BASES: No significant abnormality is appreciated. AORTA: No significant abnormality is appreciated. LIVER/GB: No significant abnormality is appreciated. PANCREAS: No significant abnormality is seen. SPLEEN: No significant abnormality is seen. ADRENALS: No significant abnormality is seen. KIDNEYS: No significant abnormality is seen. REPRODUCTIVE ORGANS: No significant abnormality is seen. URINARY BLADDER: No significant abnormality is seen. BOWEL: No significant abnormality is seen. FREE AIR: No Free Air is visible. ASCITES: None visible. PELVIC ADENOPATHY: None visualized. RETROPERITONEAL ADENOPATHY: No Retroperitoneal Adenopathy visible. OSSEOUS STRUCTURES: There is facet arthropathy, degenerative disc change and spinal curvature incide ntally noted. IMPRESSION: RECTUS SHEATH HEMATOMA, CORRELATE. A Red level critical message alert has been initiated for Josep Tovar via the [employer] | Critical Results System on 09/08/2019 3:09 PM. This message alert has been sent to Josep Tovar v ia the preferences provided by the clinician for the receipt of Radiology Critical Findings. Message ID [id number]."
[2019-09-08] MEDS: HYDROcodone/APAP 5-325MG 1 EACH TAB PO PRN ×2 (15:35→23:27)
[2019-09-08 16:21] LABS: Glucose,Whole Blood 174 mg/dL (75-99)
[2019-09-08] MEDS ORDERED: HYDROmorphone 0.5 MG/0.5 ML SYRINGE IVP PRN (16:57)
[2019-09-08] MEDS: methylPREDNISolone SOD SUCCI 40 MG/ML 1 ML VIAL IV SCH ×2 (17:11→23:28)
[2019-09-08] MEDS ORDERED: HYDROmorphone 1 MG/ML 1 ML SYRINGE IVP PRN (18:46)
[2019-09-08] MEDS: LEVOFLOXACIN 500 MG TAB PO SCH (19:57)
[2019-09-08] MEDS: LATANOPROST 0.005% OPHTH DROPS 2.5 ML BTL LEFT EYE SCH (19:58)
[2019-09-08 20:15] LABS: Glucose,Whole Blood 150 mg/dL (75-99)
--- NOTE | 2019-09-08 20:56 | P.CNNES ---
History of Present Illness Consult date: 09/08/19 Requesting physician: Edmond Cr Reason for Consult: Lower extremity weakness History of Present Illness: this is a 64-year-old gentleman with medical history of COPD, glaucoma, macular degeneration and the previous history of tobacco use who is admitted to the hospital through the ER on 09/05/2023 body swallowing with complaints of edema throughout the body particularly in the legs, ankles and complaints of body p ain. The patient has shortness of breath and wheezing the patient is on salmeterol every 6 hours. The patient had a recent COVID test and was negative. Patient was last in the hospital about 2 weeks ago and had COPD exacerbation and purulent tracheobronchitis and during his stay he had the bronchoscopy with bronchial lavage culture growing Pseudomonas and Jamila albicans. The patient was discharged from the hospital on 09/04/2019 on the Levaquin and Diflucan. The patient denies any current fevers or chills. Currently the patient stated that yesterday he noted that he is having good lower extremity weakness predominantly in the feet in the back of the calf, and felt that his weakness is somewhat better today but not back to baseline. He states that he is able to walk to the unassisted but he's very cautious. He denies any recent trauma to the back. He does endorse that about a year ago he was in the shower and he he had a mechanical fall as he had the back of his back middle back and ever since he's been having numbness from middle back all the way down to his feet with c onstant numbness. He felt that the numbness is ascending go all the way towards the orbit and involving both hands. He denied any significant weakness prior to yesterday. He denies of bladder and bowel incontinence as well as denies any weight loss. He denies off vision problem difficulty swallowing difficulty with his speech. Patient denies of any neck pain. Patient does endorse chronic lower back pain that radiates down both anterior and posterior side of the leg all the way down to the feet been going on for last [address] of the head on 11/01/2017 which will mild patchy of chronic small vessel ischemic disease. No acute intracranial abnormality. Upon reviewing the labs the patient has chronic hyponatremia currently the sodium is 129, since 2013 a sodium runs in the range of 127 to 134. In [address] of the head and CT cervical spine and the cervical spine showed degenerative changes throughout the cervical spine showed changes and mild right moderate left neuroforaminal stenosis at C3-C4 mild left neural foraminal stenosis at C5-C6 and mild to moderate bilateral C6-C7 Past Medical History Past Medical History: COPD Additional Past Medical History / Comment(s): glaucoma History of Any Multi-Drug Resistant Organisms: None Reported Past Surgical History: Joint Replacement Additional Past Surgical History / Comment(s): LT SHOULDER sx in 2009 Past Psychological History: No Psychological Hx Reported Smoking Status: Former smoker Past Alcohol Use History: Occasional Additional Past Alcohol Use History / Comment(s): patient says he smoked for 45 years but quit 3 months ago. Drinks alcohol occasionally. Says a six pack lasts him about a month. Lives with daughter and her significant other. Past Drug Use History: None Reported - Past Family History Daughter(s) Family Medical History: No Reported History Medications and Allergies Home Medications Medication Instructions Recorded Confirmed Type Latanoprost [Xalatan 0.005%] 1 drop LEFT EYE HS 10/31/17 09/05/19 History Albuterol Inhaler [Ventolin Hfa 1 puff INHALATION RT-Q6H PRN 08/22/19 09/05/19 History Inhaler] Vit C/E/Zn/Coppr/Lutein/Zeaxan 1 tab PO DAILY 08/22/19 09/05/19 History [Preservision Areds 2 Softgel] Dicyclomine [Bentyl] 10 mg PO QID PRN #20 cap 09/04/19 09/05/19 Rx Fluconazole [Diflucan] 100 mg PO BID 5 Days #10 tab 09/04/19 09/05/19 Rx Ipratropium-Albuterol Nebulize 3 ml INHALATION RT-QID 30 Days #90 09/04/19 09/05/19 Rx [Duoneb 0.5 mg-3 mg/3 ml Soln] ml Levofloxacin [Levaquin] 500 mg PO DAILY 7 Days #7 tab 09/04/19 09/05/19 Rx Pantoprazole [Protonix] 40 mg PO BID 30 Days #60 tablet. 09/04/19 09/05/19 Rx predniSONE See Taper PO DIRECTED 09/05/19 09/05/19 History Apixaban [Eliquis] 5 mg PO BID #60 tab 09/08/19 Rx Allergies Allergy/AdvReac Type Severity Reaction Status Date / Time aspirin Allergy Rash/Hives Verified 09/05/19 22:35 Physical Examination - Vital Signs Vital Signs: Vital Signs Temp Pulse Pulse Resp BP Pulse Ox 09/08/19 08:43 79 09/08/19 08:31 78 09/08/19 08:00 98.1 F 84 16 100/60 100 09/08/19 04:00 98 F 164 H 19 119/66 98 09/08/19 02:38 106 H 122/58 09/08/19 02:35 129 H 116/60 09/08/19 02:25 142 H 118/67 09/08/19 00:00 97.8 F 78 16 103/56 95 09/07/19 21:04 76 09/07/19 20:00 97.9 F 120 H 16 120/77 96 09/07/19 16:04 88 09/07/19 16:00 97.7 F 83 18 115/63 99 09/07/19 15:52 84 09/07/19 12:17 72 09/07/19 12:02 72 09/07/19 12:00 98.4 F 72 18 139/58 97 Intake and Output 09/07/19 09/08/19 09/08/19 22:59 06:59 14:59 Intake Total 620 1270.333 240 Output Total 1000 2700 1825 Balance -380 -3322.409 -8663 Intake: IV 40 0.9 @10ml/hr 40 Intake, IV Titration 30.333 Amount Diltiazem 125 mg In 30.333 Sodium Chloride 0.9% 100 ml @ 10 MG/HR 10 mls/hr IV .[id number] [facility] Rx#: [id number] Oral 620 1200 240 Output: Urine 1000 2700 1825 Other: # Voids 5 Weight 83.2 kg - Additional findings GENERAL: The patient is lying in bed and is in mild acute distress. CHEST: The heart rate is regular rate rhythm. No murmurs to auscultation. Lower extremity edema 1+ LUNG: Not labored breathing. ABDOMEN/GI: Bowel sounds present in all 4 quadrants. No tenderness to palpation throughout. NEUROLOGICAL: Higher mental function: The patient is awake, alert, oriented to self, place and time. Patient is following commands. No aphasia and no neglect. Cranial nerves: The pupils are round, equal and reactive to light and accommodation. Visual malagon right temporal field cut (thinks it chronic). Extraocular movement is intact no nystagmus is noted. Facial sensation is normal to touch throughout. The facial strength is normal throughout. Hearing is normal bilaterally to hand rub. Tongue is midline and moved [id number] without any difficulty. No dysarthria is noted. Shoulder shrug is normal b ilaterally. Motor: The strength is 5 over 5 throughout. Normal tone and bulk. Cerebellum: Normal finger to nose bilaterally. Sensation: Sensation is decreased on the lateral aspect of the proximal lower extremity just distal to the knee and excess small focal patch, otherwise normal to light touch throughout. Reflexes (right/left): Biceps 3+/3+; triceps2+/2+; brachioradialis 3+/3+; patellar-3+/3+, ankles 1+/1+; Plantars : mute on right and unequivocal on left.. Results - Laboratory Findings CBC and BMP: 09/08/19 06:17 09/08/19 06:17 Abnormal Lab Findings: Abnormal Labs 09/05/19 09/05/19 09/05/19 22:37 22:37 22:37 WBC 13.3 H RBC 4.17 L Hgb Neutrophils # 10.0 H Lymphocytes # APTT Sodium 128 L Potassium 3.2 L Chloride 92 L Carbon Dioxide Creatinine Glucose 107 H POC Glucose (mg/dL) Plasma Lactic Acid Hugo 2.2 H* Calcium 7.6 L ALT 69 H Creatine Kinase 304 H Total Protein 5.0 L Albumin 3.0 L 09/06/19 09/06/19 09/06/19 03:20 03:20 06:19 WBC RBC Hgb Neutrophils # 7.8 H Lymphocytes # APTT Sodium 130 L Potassium Chloride 89 L Carbon Dioxide 37 H Creatinine Glucose 133 H POC Glucose (mg/dL) 161 H Plasma Lactic Acid Hugo Calcium 7.6 L ALT Creatine Kinase Total Protein Albumin 09/06/19 09/06/19 09/06/19 12:38 17:34 20:51 WBC RBC Hgb Neutrophils # Lymphocytes # APTT Sodium Potassium Chloride Carbon Dioxide Creatinine Glucose POC Glucose (mg/dL) 108 H 159 H 128 H Plasma Lactic Acid Hugo Calcium ALT Creatine Kinase Total Protein Albumin 09/07/19 09/07/19 09/07/19 05:42 05:42 06:10 WBC 11.8 H RBC 4.06 L Hgb 12.7 L Neutrophils # 10.6 H Lymphocytes # 0.7 L APTT Sodium 129 L Potassium Chloride 91 L Carbon Dioxide 36 H Creatinine Glucose 143 H POC Glucose (mg/dL) 181 H Plasma Lactic Acid Hugo Calcium 7.7 L ALT Creatine Kinase Total Protein Albumin 09/07/19 09/07/19 09/07/19 11:32 16:33 19:58 WBC RBC Hgb Neutrophils # Lymphocytes # APTT Sodium Potassium Chloride Carbon Dioxide Creatinine Glucose POC Glucose (mg/dL) 169 H 182 H 176 H Plasma Lactic Acid Hugo Calcium ALT Creatine Kinase Total Protein Albumin 09/08/19 09/08/19 09/08/19 06:14 06:17 06:17 WBC 13.5 H RBC 4.20 L Hgb Neutrophils # 12.3 H Lymphocytes # 0.7 L APTT Sodium 129 L Potassium Chloride 90 L Carbon Dioxide 34 H Creatinine 0.59 L Glucose 155 H POC Glucose (mg/dL) 157 H Plasma Lactic Acid Hugo Calcium 7.9 L ALT Creatine Kinase Total Protein Albumin 09/08/19 06:17 WBC RBC Hgb Neutrophils # Lymphocytes # APTT 121.3 H* Sodium Potassium Chloride Carbon Dioxide Creatinine Glucose POC Glucose (mg/dL) Plasma Lactic Acid Hugo Calcium ALT Creatine Kinase Total Protein Albumin Assessment and Plan Assessment: This is a 64-year-old gentleman with a history of COPD, glaucoma X tobacco use stopped about one year ago and been smoking about 555 years that that he states about 1 year ago he had a mechanical fall and suffered numbness from mid back all the way down to his feet and has been progressively worsening up to his hands. This is constant numbness. He had 2 admissions recently one was about 2 weeks ago for COPD exacerbation, K with the pseudomonas and klebsiella and this recent admission he felt his whole body was swollen. He felt he is having the lower extremity weakness but today he felt like somewhat improvement. Exam showed brisk reflexes in the upper and lower extremies. A CT of the head there is no acute intracranial abnormality. The CT cervical spine done in 2013 showed degenerative changes throughout cervical spine without acute traumatic. Plan: Because of the patient hyper reflexia of upper and lower extremity I recommend getting MRI of the C-spine and MRI of the T-spine since (since he had trauma to his thoracic area). If the above C-spine and thoracic span are negative would recommend MRI of the brain since patient had right temporal field cuts throughout to rule out any lesion (can be considered as outpatient). Regarding his bilateral lower extremity weakness that started yesterday (09/07/2019) and seems to be somewhat better today compared to yesterday might be due to deconditioning, since the patient had an admission about 2 weeks ago and another admission with edema in the lower extremity. Recommend consulting physical and occupation therapy. His hemoglobin A1c is 6.6. Recommend getting off folate, vitamin B12, B6 level and TSH level. Regarding his chronic hyponatremia he and this has been going on since 2013 and has been in the range of 127-134. Currently the sodium is 129 recommend slowly correcting the sodium and keep it within the normal range. Riding management of his COPD we'll defer to the primary team. We will continue following patient. Time with Patient: Greater than 30
[2019-09-08] MEDS: HYDROmorphone 1 MG/ML 1 ML SYRINGE IVP PRN (21:34)
--- NOTE | 2019-09-09 00:45 | P.PN ---
Subjective Progress Note Date: 09/08/19 Principal diagnosis: Acute COPD exacerbation secondary to purulent tracheobronchitis New onset acute diastolic CHF Patient is a 64-year-old male with a known history of COPD, previous history of smoking who was recently discharged from the hospital on 09/01/2019, was treated for purulent tracheobronchitis and acute COPD exacerbation. Patient had bronchoscopy with bronchial lavage cultures growing Pseudomonas and Jamila albicans. Patient was discharged home on Levaquin and Diflucan. Patient came back to the hospital due to worsening bilateral lower extremities swelling and diffuse body pains and aches. Denied any fever or chills. Patient has been having persistent shortness of breath since yesterday. Patient was also having exertional dyspnea. Patient was tested for COVID-19 which was negative. Chest x-ray showed pleural and pulmonary scarring at the apices. No acute lung disease. No acute change. EKG showed sinus rhythm with premature supraventricular complexes with frequent PVCs. Laboratory data showed WBC 13.3, hemoglobin 13.6, platelets 205 and neutrophils 7.8 and lymphocytes 1.0 Sodium 128, potassium 3.2, chloride 87, bicarb is 28 Lactic acid 2.2 on admission proBNP 507 Troponin times one 0.015 CK 304 Patient is somewhat poor historian. 09/07/2019 Patient is currently lying in the bed. Bilateral leg swelling is better co mpared to yesterday. Patient is still having diffuse wheezing and scattered rhonchi on examination of the lung. No fever no chills. Patient is being continued IV Lasix which will be changed to by mouth in the next 24 hours. Cardiology and pulmonary is following. Monitor CBC and BMP tomorrow. 09/08/2019 Patient is currently lying in the bed comfortably. Patient states that he had a rough night. Patient went into A. fib with RVR last night and was started on Cardizem and heparin drip. Currently heart rate is controlled and Cardizem drip has been discontinued. Patient is currently IV Lasix 40 mg every 12 hourly. Lower extremity edema is improved. Patient does complain of right lower quadrant abdominal pain and knot-like density. CT of the abdomen and pelvis was done showed rectus sheath hematoma. Anticoagulation is on hold. Lab data showed WBC 13.5, hemoglobin 13.2, sodium 139, potassium 3.8, BUN 17 and creatinine 0.59 General surgery was consulted and pulmonary and cardiology is on board. Current medications reviewed Objective - Vital Signs Vital signs: Vital Signs Temp 98.1 F 09/08/19 08:00 Pulse 72 09/08/19 19:50 Resp 16 09/08/19 16:00 BP 121/66 09/08/19 12:00 Pulse Ox 98 09/08/19 12:00 Intake & Output 09/08/19 09/08/19 09/09/19 06:59 18:59 06:59 Intake Total 1270.333 708.623 Output Total 2700 3025 Balance -1429.667 -2316.377 Weight 83.2 kg Intake: IV 40 0.9 @10ml/hr 40 Intake, IV Titration 30.333 68.623 Amount Diltiazem 125 mg In 30.333 Sodium Chloride 0.9% 100 ml @ 10 MG/HR 10 mls/hr IV .[id number] [facility] Rx#: [id number] Heparin Sod,Pork in 0.45% 68.623 NaCl 25,000 unit In 0.45 % NaCl 1 250ml.bag @ 12 UNITS/KG/HR 9.78 mls/hr IV .Q24H [facility] Rx#: [id number] Oral 1200 640 Output: Urine 2700 3025 Other: # Voids 5 - Exam PHYSICAL EXAMINATION: Patient is lying in the bed comfortably, no acute distress, awake alert and oriented.. HEENT: Normocephalic. Neck is supple. Pupils reactive. Nostrils clear. Oral cavity is moist. Ears reveal no drainage. Neck reveals no JVD, carotid bruits, or thyromegaly. CHEST EXAMINATION: Trachea is central. Symmetrical expansion.Minimal expiratory wheezing and scattered rhonchi... CARDIAC: Normal S1, S2 with no gallops. No murmurs ABDOMEN: Soft. Bowel sounds normal. Right lower quadrant not like density, swelling and minimal tenderness., No organomegaly. No abdominal bruits. Extremities: 2+ edema. No clubbing or cyanosis Neurologically awake, alert, oriented x3 with well-coordinated movements. No focal deficits noted Skin: No rash or skin lesions. Psychiatric: Coperative. Nonsuicidal Musculoskeletal: No joint swelling or deformity. Normal range of motion. - Labs CBC & Chem 7: 09/08/19 06:17 07/13/20 06:17 Labs: Abnormal Lab Results - Last 24 Hours (Table) 09/07/19 09/08/19 09/08/19 Range/Units 05:42 06:14 06:17 WBC (3.8-10.6) k/uL RBC (4.30-5.90) m/uL Neutrophils # (1.3-7.7) k/uL Lymphocytes # (1.0-4.8) k/uL APTT (22.0-30.0) sec Sodium 129 L (137-145) mmol/L Chloride 90 L (98-107) mmol/L Carbon Dioxide 34 H (22-30) mmol/L Creatinine 0.59 L (0.66-1.25) mg/dL Glucose 155 H (74-99) mg/dL POC Glucose (mg/dL) 157 H (75-99) mg/dL Hemoglobin A1c 6.6 H (4.0-6.0) % Calcium 7.9 L (8.4-10.2) mg/dL 09/08/19 09/08/19 09/08/19 Range/Units 06:17 06:17 11:27 WBC 13.5 H (3.8-10.6) k/uL RBC 4.20 L (4.30-5.90) m/uL Neutrophils # 12.3 H (1.3-7.7) k/uL Lymphocytes # 0.7 L (1.0-4.8) k/uL APTT 121.3 H* (22.0-30.0) sec Sodium (137-145) mmol/L Chloride (98-107) mmol/L Carbon Dioxide (22-30) mmol/L Creatinine (0.66-1.25) mg/dL Glucose (74-99) mg/dL POC Glucose (mg/dL) 201 H (75-99) mg/dL Hemoglobin A1c (4.0-6.0) % Calcium (8.4-10.2) mg/dL 09/08/19 09/08/19 Range/Units 16:19 20:14 WBC (3.8-10.6) k/uL RBC (4.30-5.90) m/uL Neutrophils # (1.3-7.7) k/uL Lymphocytes # (1.0-4.8) k/uL APTT (22.0-30.0) sec Sodium (137-145) mmol/L Chloride (98-107) mmol/L Carbon Dioxide (22-30) mmol/L Creatinine (0.66-1.25) mg/dL Glucose (74-99) mg/dL POC Glucose (mg/dL) 174 H 150 H (75-99) mg/dL Hemoglobin A1c (4.0-6.0) % Calcium (8.4-10.2) mg/dL Assessment and Plan Assessment: Worsening shortness of breath due to acute COPD exacerbation with a purulent tracheobronchitis. status post bronchoscopy with BAL on 08/29/2019, and repeat bronchoscopy with BAL on 09/03/2019. Bronchial cultures growing Pseudomonas, Klebsiella and Jamila albicans. Fluid cytopathology showed no malignant cells. Bilateral lower extremity swelling with slightly elevated BNP level Due to acute CHF with diastolic dysfunction Atrial fibrillation with rapid ventricular rate. New onset. Right rectus sheath hematoma. Single episode of atrial fibrillation March 2019. Not requiring anticoagulation. Herring's esophagus Hypervolemic hyponatremia Hypokalemia Lactic acidosis on admission due to hypoxia resolved now Previous history of smoking Osteoarthritis History of C. difficile colitis DVT prophylaxis with heparin subcu Plan: Patient will be continued on IV steroids and duo nebs. Continue with IV Lasix 40 mg Q12. Monitor electrolytes closely. 2D echocardiogram will be obtained and cardiology is following. Patient was started on anticoagulation and metoprolol. General surgery was consulted due to rectus sheath hematoma. Continue with antibiotics in the form of Levaquin due to recent bronchial cultures growing Pseudomonas and Klebsiella. Further recommendations based on the clinical course. Prognosis guarded. Time with Patient: Greater than 30
[2019-09-09] MEDS: DILTIAZEM 125 MG in SODIUM CHLORIDE 0.9% 100 ML IV SCH (00:48)
[2019-09-09 06:27] LABS: Glucose,Whole Blood 140 mg/dL (75-99)
[2019-09-09] MEDS: PANTOPRAZOLE 40 MG TABLET PO SCH ×2 (06:30→17:17)
[2019-09-09] MEDS: INSULIN ASPART (NovoLOG) 100 UNIT/ML VIAL SQ SCH ×4 (06:30→21:10)
[2019-09-09 07:11] LABS: Basophils % (A) 0 %; Eosinophils # (A) 0.1 k/uL (0-0.7); Eosinophils % (A) 0 %; HCT 37.9 % (39.0-53.0); HGB 12.7 gm/dL (13.0-17.5); Lymphocytes # (A) 0.7 k/uL (1.0-4.8); Lymphocytes % (A) 5 %; MCH 33.3 pg (25.0-35.0); MCHC 33.6 g/dL (31.0-37.0); MCV 99.1 fL (80.0-100.0); Mean Platelet Volume 7.1; Monocytes # (A) 0.5 k/uL (0-1.0); Monocytes % (A) 3 %; Neutrophils # (A) 12.7 k/uL (1.3-7.7); Neutrophils % (A) 91 %; Platelet Count 160 k/uL (150-450); RBC 3.83 m/uL (4.30-5.90); RDW 13.9 % (11.5-15.5)
[2019-09-09 07:27] LABS: African American GFR (CKD) >90 (>60 ml/min/1.73 sqM); Anion Gap 5 mmol/L; Blood Urea Nitrogen 25 mg/dL (9-20); Calcium 8.2 mg/dL (8.4-10.2); Carbon Dioxide 35 mmol/L (22-30); Chloride 87 mmol/L (98-107); Glucose 127 mg/dL (74-99); Non-African American GFR(CKD) >90 (>60 ml/min/1.73 sqM); Potassium 5.4 mmol/L (3.5-5.1); Sodium 127 mmol/L (137-145)
[2019-09-09] MEDS: methylPREDNISolone SOD SUCCI 40 MG/ML 1 ML VIAL IV SCH ×3 (08:55→22:55)
[2019-09-09] MEDS: [UNRECOGNIZED DRUG - OTHER] PO SCH ×2 (08:55→21:10)
[2019-09-09] MEDS: METOPROLOL TARTRATE 25 MG TAB PO SCH ×2 (08:55→21:10)
[2019-09-09] MEDS: POTASSIUM CHLORIDE ER 20 MEQ TAB.ER PO SCH (08:56)
[2019-09-09] MEDS: SPIRONOLACTONE 25 MG TAB PO SCH (08:56)
[2019-09-09] MEDS: FLUCONAZOLE 100 MG TAB PO SCH ×2 (08:56→21:10)
[2019-09-09] MEDS: FUROSEMIDE 40 MG TAB PO SCH (08:56)
[2019-09-09] MEDS: SYMBICORT 160-4.5 MCG INHALER INHALATION SCH ×2 (09:10→22:12)
[2019-09-09] MEDS: IPRATROPIUM-ALBUTEROL 3 ML NEB INHALATION SCH ×4 (09:10→22:12)
--- NOTE | 2019-09-09 10:28 | P.GSCN ---
<Gypsy Caldwell - Last Filed: 09/09/19 10:17> History of Present Illness Consult date: 09/09/19 Reason for Consult: Rectus sheath hematoma Requesting physician: Josep Tovar History of present illness: CHIEF COMPLAINT: Rectus sheath hematoma HISTORY OF PRESENT ILLNESS: 64-year-old male who was admitted to hospital secondary to COPD, CHF, and new onset A. fib with RVR. Patient was placed on a heparin drip. Patient apparently began complaining of right lower quadrant abdominal pain and a CT abdomen and pelvis was completed revealing a rectus sheath hematoma. General surgery was consulted for further evaluation. Patient examined this morning at the bedside. He reports discomfort to right lower quadrant. He states this started 2 days ago. He does report coughing a lot over the past week or two. He is tolerating diet. No nausea or vomiting. Passing flatus and having bowel movements. Heparin drip has since been discontinued. Hemoglobin today 12.7, down from 13.2. PAST MEDICAL HISTORY: See list. PAST SURGICAL HISTORY: See list. SOCIAL HISTORY: No illicit drug use. REVIEW OF SYSTEMS: CONSTITUTIONAL: Denies fever or chills. HEENT: Denies blurred vision, vision changes, or eye pain. Denies hemoptysis CARDIOVASCULAR: Denies chest pain or pressure. RESPIRATORY: No shortness of breath. Reports recent coughing GASTROINTESTINAL: Refer to HPI for pertinent findings HEMATOLOGIC: Denies bleeding disorders. GENITOURINARY: Denies any blood in urine. SKIN: Denies pruitis. Denies rash. PHYSICAL EXAM: VITAL SIGNS: Reviewed. GENERAL: Well-developed in no acute distress. HEENT: No sclera icterus. Extraocular movements grossly intact. Moist buccal mucosa. Head is atraumatic, normocephalic. ABDOMEN: Soft. Patient with increased firmness to right lower quadrant with tenderness upon palpation. Ecchymosis noted throughout abdomen NEUROLOGIC: Alert and oriented. Cranial nerves II through XII grossly intact. LABORATORY DATA: WBC 14.0. Hemoglobin 12.7. Platelet count 160. IMAGING: CT abdomen and pelvis reveals evidence of rectus sheath hematoma ASSESSMENT: 1. Rectus sheath hematoma PLAN: -Continue to hold anticoagulation at this time -Obtain abdominal binder for comfort -Monitor hemoglobin. Repeat in AM -No surgical intervention recommended -Patient will be re-evaluated by Dr. Aguayo this afternoon Nurse practitioner note has been reviewed by physician. Signing provider agrees with the documented findings, assessment, and plan of care. Past Medical History Past Medical History: COPD Additional Past Medical History / Comment(s): glaucoma History of Any Multi-Drug Resistant Organisms: None Reported Past Surgical History: Joint Replacement Additional Past Surgical History / Comment(s): LT SHOULDER sx in 2009 Past Psychological History: No Psychological Hx Reported Past Alcohol Use History: Occasional Additional Past Alcohol Use History / Comment(s): patient says he smoked for 45 years but quit 3 months ago. Drinks alcohol occasionally. Says a six pack lasts him about a month. Lives with daughter and her significant other. Past Drug Use History: None Reported - Past Family History Daughter(s) Family Medical History: No Reported History Medications and Allergies Home Medications Medication Instructions Recorded Confirmed Type Latanoprost [Xalatan 0.005%] 1 drop LEFT EYE HS 10/31/17 09/05/19 History Albuterol Inhaler [Ventolin Hfa 1 puff INHALATION RT-Q6H PRN 08/22/19 09/05/19 History Inhaler] Vit C/E/Zn/Coppr/Lutein/Zeaxan 1 tab PO DAILY 08/22/19 09/05/19 History [Preservision Areds 2 Softgel] Dicyclomine [Bentyl] 10 mg PO QID PRN #20 cap 09/04/19 09/05/19 Rx Fluconazole [Diflucan] 100 mg PO BID 5 Days #10 tab 09/04/19 09/05/19 Rx Ipratropium-Albuterol Nebulize 3 ml INHALATION RT-QID 30 Days #90 09/04/19 09/05/19 Rx [Duoneb 0.5 mg-3 mg/3 ml Soln] ml Levofloxacin [Levaquin] 500 mg PO DAILY 7 Days #7 tab 09/04/19 09/05/19 Rx Pantoprazole [Protonix] 40 mg PO BID 30 Days #60 tablet. 09/04/19 09/05/19 Rx predniSONE See Taper PO DIRECTED 09/05/19 09/05/19 History Apixaban [Eliquis] 5 mg PO BID #60 tab 09/08/19 Rx Allergies Allergy/AdvReac Type Severity Reaction Status Date / Time aspirin Allergy Rash/Hives Verified 09/05/19 22:35 Surgical - Exam Vital Signs Temp Pulse Resp BP Pulse Ox 98.2 F 97 16 139/85 96 09/05/19 21:28 09/05/19 21:28 09/05/19 21:28 09/05/19 21:28 09/05/19 21:28 Results - Labs 09/09/19 06:46 09/09/19 06:46 Abnormal Lab Results - Last 24 Hours (Table) 09/07/19 09/08/19 09/08/19 Range/Units 05:42 11:27 16:19 WBC (3.8-10.6) k/uL RBC (4.30-5.90) m/uL Hgb (13.0-17.5) gm/dL Hct (39.0-53.0) % Neutrophils # (1.3-7.7) k/uL Lymphocytes # (1.0-4.8) k/uL Sodium (137-145) mmol/L Potassium (3.5-5.1) mmol/L Chloride (98-107) mmol/L Carbon Dioxide (22-30) mmol/L BUN (9-20) mg/dL Glucose (74-99) mg/dL POC Glucose (mg/dL) 201 H 174 H (75-99) mg/dL Hemoglobin A1c 6.6 H (4.0-6.0) % Calcium (8.4-10.2) mg/dL 09/08/19 09/09/19 09/09/19 Range/Units 20:14 06:26 06:46 WBC (3.8-10.6) k/uL RBC (4.30-5.90) m/uL Hgb (13.0-17.5) gm/dL Hct (39.0-53.0) % Neutrophils # (1.3-7.7) k/uL Lymphocytes # (1.0-4.8) k/uL Sodium 127 L (137-145) mmol/L Potassium 5.4 H (3.5-5.1) mmol/L Chloride 87 L (98-107) mmol/L Carbon Dioxide 35 H (22-30) mmol/L BUN 25 H (9-20) mg/dL Glucose 127 H (74-99) mg/dL POC Glucose (mg/dL) 150 H 140 H (75-99) mg/dL Hemoglobin A1c (4.0-6.0) % Calcium 8.2 L (8.4-10.2) mg/dL 09/09/19 Range/Units 06:46 WBC 14.0 H (3.8-10.6) k/uL RBC 3.83 L (4.30-5.90) m/uL Hgb 12.7 L (13.0-17.5) gm/dL Hct 37.9 L (39.0-53.0) % Neutrophils # 12.7 H (1.3-7.7) k/uL Lymphocytes # 0.7 L (1.0-4.8) k/uL Sodium (137-145) mmol/L Potassium (3.5-5.1) mmol/L Chloride (98-107) mmol/L Carbon Dioxide (22-30) mmol/L BUN (9-20) mg/dL Glucose (74-99) mg/dL POC Glucose (mg/dL) (75-99) mg/dL Hemoglobin A1c (4.0-6.0) % Calcium (8.4-10.2) mg/dL Diabetes panel 09/07/19 09/09/19 Range/Units 05:42 06:46 Sodium 127 L (137-145) mmol/L Potassium 5.4 H (3.5-5.1) mmol/L Chloride 87 L (98-107) mmol/L Carbon Dioxide 35 H (22-30) mmol/L BUN 25 H (9-20) mg/dL Creatinine 0.73 (0.66-1.25) mg/dL Glucose 127 H (74-99) mg/dL Hemoglobin A1c 6.6 H (4.0-6.0) % Calcium 8.2 L (8.4-10.2) mg/dL Thyroid panel 09/09/19 Range/Units 06:46 TSH 1.840 (0.465-4.680) mIU/L Calcium panel 09/09/19 Range/Units 06:46 Calcium 8.2 L (8.4-10.2) mg/dL Pituitary panel 09/09/19 Range/Units 06:46 Sodium 127 L (137-145) mmol/L Potassium 5.4 H (3.5-5.1) mmol/L Chloride 87 L (98-107) mmol/L Carbon Dioxide 35 H (22-30) mmol/L BUN 25 H (9-20) mg/dL Creatinine 0.73 (0.66-1.25) mg/dL Glucose 127 H (74-99) mg/dL Calcium 8.2 L (8.4-10.2) mg/dL TSH 1.840 (0.465-4.680) mIU/L Adrenal panel 09/09/19 Range/Units 06:46 Sodium 127 L (137-145) mmol/L Potassium 5.4 H (3.5-5.1) mmol/L Chloride 87 L (98-107) mmol/L Carbon Dioxide 35 H (22-30) mmol/L BUN 25 H (9-20) mg/dL Creatinine 0.73 (0.66-1.25) mg/dL Glucose 127 H (74-99) mg/dL Calcium 8.2 L (8.4-10.2) mg/dL <Jorge Aguayo - Last Filed: 09/09/19 16:40> History of Present Illness History of present illness: As above. Patient with spontaneous rectus sheath hematoma on heparin drip. Doing better now. Less pain. CAT scan reviewed. No active bleeding. Continue to hold anticoagulation. We'll follow. Surgical - Exam Vital Signs Temp Pulse Resp BP Pulse Ox 98.2 F 97 16 139/85 96 09/05/19 21:28 09/05/19 21:28 09/05/19 21:28 09/05/19 21:28 09/05/19 21:28 Results - Labs 09/09/19 06:46 09/09/19 06:46 Abnormal Lab Results - Last 24 Hours (Table) 09/08/19 09/09/19 09/09/19 Range/Units 20:14 06:26 06:46 WBC (3.8-10.6) k/uL RBC (4.30-5.90) m/uL Hgb (13.0-17.5) gm/dL Hct (39.0-53.0) % Neutrophils # (1.3-7.7) k/uL Lymphocytes # (1.0-4.8) k/uL Sodium 127 L (137-145) mmol/L Potassium 5.4 H (3.5-5.1) mmol/L Chloride 87 L (98-107) mmol/L Carbon Dioxide 35 H (22-30) mmol/L BUN 25 H (9-20) mg/dL Glucose 127 H (74-99) mg/dL POC Glucose (mg/dL) 150 H 140 H (75-99) mg/dL Calcium 8.2 L (8.4-10.2) mg/dL 09/09/19 09/09/19 Range/Units 06:46 12:28 WBC 14.0 H (3.8-10.6) k/uL RBC 3.83 L (4.30-5.90) m/uL Hgb 12.7 L (13.0-17.5) gm/dL Hct 37.9 L (39.0-53.0) % Neutrophils # 12.7 H (1.3-7.7) k/uL Lymphocytes # 0.7 L (1.0-4.8) k/uL Sodium (137-145) mmol/L Potassium (3.5-5.1) mmol/L Chloride (98-107) mmol/L Carbon Dioxide (22-30) mmol/L BUN (9-20) mg/dL Glucose (74-99) mg/dL POC Glucose (mg/dL) 257 H (75-99) mg/dL Calcium (8.4-10.2) mg/dL Diabetes panel 09/09/19 Range/Units 06:46 Sodium 127 L (137-145) mmol/L Potassium 5.4 H (3.5-5.1) mmol/L Chloride 87 L (98-107) mmol/L Carbon Dioxide 35 H (22-30) mmol/L BUN 25 H (9-20) mg/dL Creatinine 0.73 (0.66-1.25) mg/dL Glucose 127 H (74-99) mg/dL Calcium 8.2 L (8.4-10.2) mg/dL Thyroid panel 09/09/19 Range/Units 06:46 TSH 1.840 (0.465-4.680) mIU/L Calcium panel 09/09/19 Range/Units 06:46 Calcium 8.2 L (8.4-10.2) mg/dL Pituitary panel 09/09/19 Range/Units 06:46 Sodium 127 L (137-145) mmol/L Potassium 5.4 H (3.5-5.1) mmol/L Chloride 87 L (98-107) mmol/L Carbon Dioxide 35 H (22-30) mmol/L BUN 25 H (9-20) mg/dL Creatinine 0.73 (0.66-1.25) mg/dL Glucose 127 H (74-99) mg/dL Calcium 8.2 L (8.4-10.2) mg/dL TSH 1.840 (0.465-4.680) mIU/L Adrenal panel 09/09/19 Range/Units 06:46 Sodium 127 L (137-145) mmol/L Potassium 5.4 H (3.5-5.1) mmol/L Chloride 87 L (98-107) mmol/L Carbon Dioxide 35 H (22-30) mmol/L BUN 25 H (9-20) mg/dL Creatinine 0.73 (0.66-1.25) mg/dL Glucose 127 H (74-99) mg/dL Calcium 8.2 L (8.4-10.2) mg/dL
[2019-09-09 12:31] LABS: Glucose,Whole Blood 257 mg/dL (75-99)
--- NOTE | 2019-09-09 12:38 | PN ---
PROGRESS NOTE Mr. Curran has abdominal discomfort, abdominal wall tenderness, and CAT scan revealed a rectus sheath hematoma. This is a spontaneous rectus sheath hematoma while he was receiving subcu injections of heparin and also he received only probably 2 doses of Xarelto. We have discontinued all the subcu injections and also Xarelto. The patient remains in sinus rhythm, although he has paroxysmal atrial fibrillation. Given the circumstances of rectal sheath hematoma, which was spontaneous, he will not have any further anticoagulation. I discussed this with the patient. He is feeling well overall, but complains of pain. Will continue pain medications. Vitals are stable, no JVD, S1, S2 heard normally. Regular rhythm, short systolic murmur. Lungs are clear. Abdomen is soft. There is tenderness over the mid abdominal line over the rectus muscle. Plan is to continue current medications. No anticoagulation. MMODL / IJN: [id number] /
--- NOTE | 2019-09-09 13:39 | ECHOF ---
Referral Reason:Afib/flutter with RVR, CHF exac MEASUREMENTS -------- HEIGHT: 180.3 cm WEIGHT: 83.0 kg BP: RVIDd: 2.9 cm (< 3.3) IVSd: 1.0 cm (0.6 - 1.1) LVIDd: 4.9 cm (3.9 - 5.3) LVPWd: 1.0 cm (0.6 - 1.1) IVSs: 1.5 cm LVIDs: 3.3 cm LVPWs: 1.7 cm LA Diam: 3.4 cm (2.7 - 3.8) LAESV Index (A-L): 25.10 ml/m Ao Diam: 4.0 cm (2.0 - 3.7) AV Cusp: 2.6 cm (1.5 - 2.6) MV EXCURSION: 18.612 mm (> 18.000) MV EF SLOPE: 87 mm/s (70 - 150) EPSS: 0.6 cm RAP: 5.00 mmHg RVSP: 20.05 mmHg FINDINGS -------- Sinus rhythm. This was a technically adequate study. The left ventricular size is normal. Left ventricular wall thickness is normal. There is moderate global hypokinesis of LV . Overall left ventricular systolic function is mild-moderately impaired with, an EF between 40 - 45 %. The right ventricle is normal in size. Normal LA size by volume 22+/-6 ml/m2. The right atrial size is normal. Interatrial and interventricular septum intact. The aortic valve is trileaflet, and appears structurally normal. No aortic stenosis or regurgitation. The mitral valve is normal. Mild mitral regurgitation is present. Mild tricuspid regurgitation present. Right ventricular systolic pressure is normal at < 35 mmHg. The pulmonic valve was not well visualized. There is no pulmonic regurgitation present. The aortic root is dilated measuring 4.0cm. Normal inferior vena cava with normal inspiratory collapse consistent with estimated right atrial pre ssure of 5 mmHg. There is no pericardial effusion. CONCLUSIONS -------- 1. There is moderate global hypokinesis of LV . 2. Overall left ventricular systolic function is mild-moderately impaired with, an EF between 40 - 45 %. 3. Normal LA size by volume 22+/-6 ml/m2. 4. The aortic valve is trileaflet, and appears structurally normal. No aortic stenosis or regurgitati on. 5. Mild mitral regurgitation is present. 6. Mild tricuspid regurgitation present. 7. The aortic root is dilated measuring 4.0cm. 8. There is no pericardial effusion. CUST[employer] HOME INSTALLER: Laura Serna RDCS
[2019-09-09] MEDS: HYDROcodone/APAP 5-325MG 1 EACH TAB PO PRN (13:42)
--- NOTE | 2019-09-09 13:42 | P.PN ---
Subjective Progress Note Date: 09/09/19 Principal diagnosis: Fluid retention, the possibility of acute exacerbation of CHF On 09/08/2019 patient seen in follow-up on selective care unit. He states he did not have a good night last night, apparently he was was tachycardic, went into A. fib/flutter with a heart rate up in the 120s to 160s range, he was started on Cardizem drip, and heparin drip per weight-based protocol, she is currently in sinus mechanism with a controlled rate, with a rate of 90 BPM, denies any worsening dyspnea, he is on IV Lasix, 40 mg every 12 hours, he has produced 5.2 L in urine output, and he is in -3.3 net fluid balance over the last 24 hours, lower extremity edema has improved. Today's labs have been reviewed, showing white blood cell, 13.5, hemoglobin is 13.2, serum sodium is 129, same as yesterday, potassium is 3.8, chloride is 90, CO2 is 34, BUN is 17, creatinine is 0.59. He remains on fluid restriction of 1200 mL of fluid on the daily basis. On 09/09/2019 patient seen in follow-up on selective care unit, he has significant bruising in his pubic area and bruising and irregular bump consistent with hematoma of the right abdominal wall. CT of the abdomen and pelvis shows a rectus sheath hematoma. No significant drop in hemoglobin, today's hemoglobin is 12.7. White count is 14.0, serum sodium is 127, potassium is 5.4, chloride is 87, CO2 is 35, B1 is 25, creatinine is 0.73. Lung sounds are still quite noisy, with scattered wheezing and rhonchi, but equal air entry bilaterally. Not on any oxygen, pulse ox is 96% on room air, afebrile, hemodynamically patient is stable. He is currently in sinus mechanism. He is on oral dose of Lasix. No lower extremity edema. Cardiology is following, echocardiogram has been ordered, he continues on oral Levaquin, breathing treatments, and IV steroids. IV heparin has been discontinued, no anticoagulation in view of rectus sheath hematoma. Patient was seen by neurology services for his lower extremity weakness today is somewhat improved. MRI of the C-spine and MRI of the T-spine was recommended. Objective - Vital Signs Vital signs: Vital Signs Temp 97.9 F 09/09/19 12:21 Pulse 72 09/09/19 12:21 Resp 16 09/09/19 12:21 BP 147/82 09/09/19 12:21 Pulse Ox 96 09/09/19 12:21 Intake & Output 09/08/19 09/09/19 09/09/19 18:59 06:59 18:59 Intake Total 708.623 600 240 Output Total 3025 800 Balance -2316.377 -200 240 Weight 84 kg Intake: Intake, IV Titration 68.623 Amount Heparin Sod,Pork in 0.45% 68.623 NaCl 25,000 unit In 0.45 % NaCl 1 250ml.bag @ 12 UNITS/KG/HR 9.78 mls/hr IV .Q24H [facility] Rx#: [id number] Oral 640 600 240 Output: Urine 3025 800 - Exam GENERAL EXAM: Alert, very pleasant 64-year-old white male, with room air pulse ox of 98% comfortable in no apparent distress. HEAD: Normocephalic/atraumatic. EYES: Normal reaction of pupils, equal size. Conjunctiva pink, sclera white. NOSE: Clear with pink turbinates. THROAT: No erythema or exudates. NECK: No masses, no JVD, no thyroid enlargement, no adenopathy. CHEST: No chest wall deformity. Symmetrical expansion. LUNGS: Equal air entry with diffuse rhonchi and wheezing CVS: Irregular rate and rhythm, normal S1 and S2, no gallops, no murmurs, no rubs ABDOMEN: No hepatosplenomegaly, normal bowel sounds, no guarding or rigidity. Soft, and the irregularities and bruising involving the mid abdomen, patient has a rectus sheath hematoma, tender, right side of the abdomen, and significant bruising of the pubic area EXTREMITIES: No clubbing, 1+ lower extremity, no cyanosis, 2+ pulses and upper and lower extremities. MUSCULOSKELETAL: Muscle strength and tone normal. SPINE: No scoliosis or deformity SKIN: No rashes CENTRAL NERVOUS SYSTEM: Alert and oriented -3. No focal deficits, tone is normal in all 4 extremities. PSYCHIATRIC: Alert and oriented -3. Appropriate affect. Intact judgment and insight. - Labs CBC & Chem 7: 09/09/19 06:46 09/09/19 06:46 Labs: Abnormal Lab Results - Last 24 Hours (Table) 09/08/19 09/08/19 09/09/19 Range/Units 16:19 20:14 06:26 WBC (3.8-10.6) k/uL RBC (4.30-5.90) m/uL Hgb (13.0-17.5) gm/dL Hct (39.0-53.0) % Neutrophils # (1.3-7.7) k/uL Lymphocytes # (1.0-4.8) k/uL Sodium (137-145) mmol/L Potassium (3.5-5.1) mmol/L Chloride (98-107) mmol/L Carbon Dioxide (22-30) mmol/L BUN (9-20) mg/dL Glucose (74-99) mg/dL POC Glucose (mg/dL) 174 H 150 H 140 H (75-99) mg/dL Calcium (8.4-10.2) mg/dL 09/09/19 09/09/19 09/09/19 Range/Units 06:46 06:46 12:28 WBC 14.0 H (3.8-10.6) k/uL RBC 3.83 L (4.30-5.90) m/uL Hgb 12.7 L (13.0-17.5) gm/dL Hct 37.9 L (39.0-53.0) % Neutrophils # 12.7 H (1.3-7.7) k/uL Lymphocytes # 0.7 L (1.0-4.8) k/uL Sodium 127 L (137-145) mmol/L Potassium 5.4 H (3.5-5.1) mmol/L Chloride 87 L (98-107) mmol/L Carbon Dioxide 35 H (22-30) mmol/L BUN 25 H (9-20) mg/dL Glucose 127 H (74-99) mg/dL POC Glucose (mg/dL) 257 H (75-99) mg/dL Calcium 8.2 L (8.4-10.2) mg/dL Assessment and Plan Plan: Assessment: #1. Increased swelling in bilateral lower extremities, and abdominal wall, possibly related to new onset of CHF, with previously documented diastolic dysfunction with EF of 50-55%. No evidence of significant valvular disease was noted on the echocardiogram from March 2019, right ventricular systolic pressure was measured at 34.8 mmHg. Echocardiogram showed mild concentric LVH mild tricuspid regurg and mild pulmonary hypertension #2. Recent hospitalization for acute exacerbation of chronic obstructive pulmonary disease, status post bronchoscopies with BAL 2, and bronchial lavage performed on 09/01/2019 showed evidence of pseudomonas aeruginosa, and Klebsiella oxytoca, and Jamila albicans, patient was discharged home on 10/2019 on oral course of Levaquin #3. New onset A. fib/A flutter with RVR #4. Hyponatremia, likely hypervolemic. Patient presented with serum sodium of 130, remains on fluid restriction with 1200 mL of fluid #5. Previous episode of atrial fibrillation in March, single episode, patient did not require anticoagulation #6. Glaucoma #7. Herring's esophagus #8. Previous history of tobacco use #9. Lower extremity weakness, patient is undergoing neurological evaluation, improved on today's exam #10. Hyponatremia, likely related to diuretic therapy, has been transitioned to oral diuretics today #11. Rectus sheath hematoma, hemodynamic patient is stable, hemoglobin is relatively stable at 12.7, anticoagulation is on hold, surgical services are following Plan: Continue IV steroids, continue Levaquin, continue breathing treatments and Symbicort. Vital signs are stable, hemodynamically stable, no significant drop in hemoglobin, CT of the abdomen and pelvis has been noted, surgical services are following in regards to the rectus sheath hematoma. No acute events overnight, diuretics per cardiology, patient has been transitioned to oral Lasix, remains on 1.2 L water restriction, repeat serum sodium in the morning, no acute events overnight, neurological evaluation consultation was noted. We'll continue to follow I performed a history & physical examination of the patient and discussed their management with my nurse practitioner, Luana Arcos. I reviewed the nurse practitioner's note and agree with the documented findings and plan of care. Lung sounds are positive for diminished breath sounds. The findings and the impression was discussed with the patient. I attest to the documentation by the nurse practitioner. Time with Patient: Less than 30
--- NOTE | 2019-09-09 14:24 | MR ---
EXAMINATION TYPE: MR cspine/tspine wo/w con DATE OF EXAM: 09/09/2019 COMPARISON: None HISTORY: weakness of lower ext, numbness, hyperreflexia TECHNIQUE: Multiplanar, multisequence images of the cervical and thoracic spine is performed without and with IV contrast, utilizing 8 mL intravenous Gadavist FINDINGS: There is motion on exam. Sagittal images of the cervical and thoracic spine show vertebral body heights and alignment to appea r satisfactory. The intervertebral discs demonstrate some loss of disc height and signal at intervert ebral levels in the cervical spine, thoracic spine. Is multilevel facet arthropathy. Cervical spine shows posterior disc bulge at C3-4, some bilateral foraminal encroachment due to uncov ertebral joint hypertrophy and facet arthropathy. There is some foraminal encroachment present at C4- 5, posterior extension endplate disc complex causes anterior mass effect on the thecal sac at C5-6, t here is mild spinal stenosis. Bilateral foraminal encroachment present at C6-7. Cervical and thoracic cord signal is maintained. Thoracic spine: No evident spinal stenosis. No significant foraminal encroachment. No evident disc he rniation. Proximal descending aorta measures approximately 2.2 cm. There is a thoracic spinal curvature. IMPRESSION: Degenerative disc disease most significant at C5-6 mild spinal curvature in the thoracic spine. Aortic ectasia.
--- NOTE | 2019-09-09 14:36 | P.PN ---
Subjective Progress Note Date: 09/09/19 Principal diagnosis: Weakness of lower extremities and numbness The patient is at bedside and states he feels about the same as yesterday except for some abdominal pain since getting subq heparin injection. He continues to have numbness of bilateral lower extremities and predominately feet. Is able to get around byself and no falls. Objective - Vital Signs Vital signs: Vital Signs Temp 97.9 F 09/09/19 12:21 Pulse 72 09/09/19 12:21 Resp 16 09/09/19 12:21 BP 147/82 09/09/19 12:21 Pulse Ox 96 09/09/19 12:21 Intake & Output 09/08/19 09/09/19 09/09/19 18:59 06:59 18:59 Intake Total 708.623 600 240 Output Total 3025 800 Balance -2316.377 -200 240 Weight 84 kg Intake: IV 0 0.9 @10ml/hr 0 Intake, IV Titration 68.623 Amount Heparin Sod,Pork in 0.45% 68.623 NaCl 25,000 unit In 0.45 % NaCl 1 250ml.bag @ 12 UNITS/KG/HR 9.78 mls/hr IV .Q24H [facility] Rx#: [id number] Oral 640 600 240 Output: Urine 3025 800 - Exam GENERAL: The patient is sitting in a chair and is in mild acute distress. CHEST: The heart rate is regular rate rhythm. No murmurs to auscultation. Lower extremity edema 1+ LUNG: Not labored breathing. ABDOMEN/GI: Bowel sounds present in all 4 quadrants. No tenderness to palpation throughout. NEUROLOGICAL: Higher mental function: The patient is awake, alert, oriented to self, place and time. Patient is following commands. No aphasia and no neglect. Cranial nerves: The pupils are round, equal and reactive to light and accommodation. Visual malagon right temporal field cut (thinks it chronic and states from macular degeneration and glaucoma). Extraocular movement is intact no nystagmus is noted. Facial sensation is normal to touch throughout. The facial strength is normal throughout. Hearing is normal bilaterally to hand rub. Tongue is midline and moved [id number] without any difficulty. No dysarthria is noted. Shoulder shrug is normal bilaterally. Motor: Gait: patient looking down on his feet, taking small steps and is cautious. The strength is 5 over 5 throughout. Normal tone and bulk. Negative Romberg. Cerebellum: Normal finger to nose bilaterally. Sensation: Sensation is decreased on the lateral aspect of the proximal lower extremity just distal to the knee and excess small focal patch, otherwise normal to light touch throughout. Reflexes (right/left): Biceps 3+/3+; triceps2+/2+; brachioradialis 3+/3+; patellar-3+/3+, ankles 1+/1+; Plantars : mute on right and unequivocal on left.. - Labs CBC & Chem 7: 09/09/19 06:46 09/09/19 06:46 Labs: Abnormal Lab Results - Last 24 Hours (Table) 09/08/19 09/08/19 09/09/19 Range/Units 16:19 20:14 06:26 WBC (3.8-10.6) k/uL RBC (4.30-5.90) m/uL Hgb (13.0-17.5) gm/dL Hct (39.0-53.0) % Neutrophils # (1.3-7.7) k/uL Lymphocytes # (1.0-4.8) k/uL Sodium (137-145) mmol/L Potassium (3.5-5.1) mmol/L Chloride (98-107) mmol/L Carbon Dioxide (22-30) mmol/L BUN (9-20) mg/dL Glucose (74-99) mg/dL POC Glucose (mg/dL) 174 H 150 H 140 H (75-99) mg/dL Calcium (8.4-10.2) mg/dL 09/09/19 09/09/19 09/09/19 Range/Units 06:46 06:46 12:28 WBC 14.0 H (3.8-10.6) k/uL RBC 3.83 L (4.30-5.90) m/uL Hgb 12.7 L (13.0-17.5) gm/dL Hct 37.9 L (39.0-53.0) % Neutrophils # 12.7 H (1.3-7.7) k/uL Lymphocytes # 0.7 L (1.0-4.8) k/uL Sodium 127 L (137-145) mmol/L Potassium 5.4 H (3.5-5.1) mmol/L Chloride 87 L (98-107) mmol/L Carbon Dioxide 35 H (22-30) mmol/L BUN 25 H (9-20) mg/dL Glucose 127 H (74-99) mg/dL POC Glucose (mg/dL) 257 H (75-99) mg/dL Calcium 8.2 L (8.4-10.2) mg/dL PTT: 121.3, INR 1.0, PT 10.0. - Imaging and Cardiology CT Abd/pelvis: Rectus sheath hematoma. Assessment and Plan Assessment: This is a 64-year-old gentleman with a history of COPD, glaucoma, Ex-tobacco user stopped about one year ago and been smoking about 55 years in which about 1 year ago he had a mechanical fall and suffered numbness from mid back all the way down to his feet and has been progressively worsening up to his hands. This is constant numbness. He had 2 admissions recently one was about 2 weeks ago for COPD exacerbation with the pseudomonas and klebsiella and this recent admission he felt his whole body was swollen. He felt he is having the lower extremity weakness but today he felt like somewhat improvement. Exam showed brisk reflexes in the upper and lower extremies. A CT of the head there is no acute intracranial abnormality. The CT cervical spine done in 2013 showed degenerative changes throughout cervical spine without acute traumatic. Plan: Because of the patient hyper reflexia of upper and lower extremity I recommend getting MRI of the C-spine and MRI of the T-spine since (since he had trauma to his thoracic area): Pending. If the above C-spine and thoracic span are negative would recommend MRI of the brain since patient had right temporal field cuts throughout to rule out any lesion (can be considered as outpatient---patient thinks it is chronic and due macular degeneration and glaucoma). Regarding his bilateral lower extremity weakness that started yesterday (09/07/2019) and seems to be somewhat better today compared to yesterday might be due to deconditioning, since the patient had an admission about 2 weeks ago and another admission with edema in the lower extremity. Physical and occupation therapy. His hemoglobin A1c is 6.6. Pending: Folate, vitamin B12, B6 level. TSH level: 1.84. Regarding his chronic hyponatremia he and this has been going on since 2014 and has been in the range of 127-134. Currently the sodium is 127 recommend slowly correcting the sodium and keep it within the normal range. Regarding Rectus Sheath hematoma with elevated PTT: Defer management to Primary team. Riding management of his COPD we'll defer to the primary team. We will continue to follow.
[2019-09-09 16:34] LABS: Glucose,Whole Blood 82 mg/dL (75-99)
[2019-09-09 17:40] LABS: Folate, Serum 8.2 ng/mL
[2019-09-09 20:34] LABS: Glucose,Whole Blood 153 mg/dL (75-99)
[2019-09-09] MEDS: LEVOFLOXACIN 500 MG TAB PO SCH (21:10)
[2019-09-09] MEDS: LATANOPROST 0.005% OPHTH DROPS 2.5 ML BTL LEFT EYE SCH (21:11)
[2019-09-10 05:44] LABS: Glucose,Whole Blood 134 mg/dL (75-99)
[2019-09-10] MEDS: INSULIN ASPART (NovoLOG) 100 UNIT/ML VIAL SQ SCH ×4 (05:54→20:28)
[2019-09-10] MEDS: PANTOPRAZOLE 40 MG TABLET PO SCH ×2 (05:55→17:37)
[2019-09-10] MEDS: HYDROcodone/APAP 5-325MG 1 EACH TAB PO PRN ×2 (05:56→17:37)
[2019-09-10 06:16] LABS: Basophils % (A) 0 %; Eosinophils # (A) 0.1 k/uL (0-0.7); Eosinophils % (A) 1 %; HCT 35.7 % (39.0-53.0); HGB 12.3 gm/dL (13.0-17.5); Lymphocytes # (A) 0.6 k/uL (1.0-4.8); Lymphocytes % (A) 6 %; MCH 33.8 pg (25.0-35.0); MCHC 34.4 g/dL (31.0-37.0); MCV 98.2 fL (80.0-100.0); Mean Platelet Volume 6.8; Monocytes # (A) 0.4 k/uL (0-1.0); Monocytes % (A) 4 %; Neutrophils # (A) 9.1 k/uL (1.3-7.7); Neutrophils % (A) 90 %; Platelet Count 158 k/uL (150-450); RBC 3.64 m/uL (4.30-5.90); RDW 13.9 % (11.5-15.5); WBC 10.2 k/uL (3.8-10.6)
[2019-09-10] MEDS: IPRATROPIUM-ALBUTEROL 3 ML NEB INHALATION SCH ×4 (07:22→19:04)
[2019-09-10] MEDS: SYMBICORT 160-4.5 MCG INHALER INHALATION SCH ×2 (07:22→19:04)
[2019-09-10] MEDS: methylPREDNISolone SOD SUCCI 40 MG/ML 1 ML VIAL IV SCH ×3 (08:49→22:36)
[2019-09-10] MEDS: METOPROLOL TARTRATE 25 MG TAB PO SCH ×2 (08:49→19:38)
[2019-09-10] MEDS: HYDROmorphone 1 MG/ML 1 ML SYRINGE IVP PRN (08:49)
[2019-09-10] MEDS: FUROSEMIDE 40 MG TAB PO SCH (08:49)
[2019-09-10] MEDS: SPIRONOLACTONE 25 MG TAB PO SCH (08:49)
[2019-09-10] MEDS: FLUCONAZOLE 100 MG TAB PO SCH ×2 (08:49→19:38)
[2019-09-10] MEDS: [UNRECOGNIZED DRUG - OTHER] PO SCH ×2 (08:51→19:38)
--- NOTE | 2019-09-10 10:25 | P.PN ---
<Gypsy Caldwell - Last Filed: 09/10/19 10:17> Subjective Progress Note Date: 09/10/19 CHIEF COMPLAINT: Rectus sheath hematoma HISTORY OF PRESENT ILLNESS: Patient examined this morning at the bedside. He reports abdominal discomfort. He thinks the abdominal binder is making his pain worse, although upon exam it is very loosely on his abdomen. Hemoglobin remains stable at 12.3. PHYSICAL EXAM: VITAL SIGNS: Reviewed. GENERAL: Well-developed in no acute distress. HEENT: No sclera icterus. Extraocular movements grossly intact. Moist buccal mucosa. Head is atraumatic, normocephalic. ABDOMEN: Soft. Patient with firmness to right lower quadrant with tenderness upon palpation. Ecchymosis noted throughout abdomen NEUROLOGIC: Alert and oriented. Cranial nerves II through XII grossly intact. ASSESSMENT: 1. Rectus sheath hematoma PLAN: -Continue to hold anticoagulation at this time -Abdominal binder for comfort if patient wishes -Monitor hemoglobin -No surgical intervention recommended -Patient will be re-evaluated by Dr. Aguayo this afternoon Nurse practitioner note has been reviewed by physician. Signing provider agrees with the documented findings, assessment, and plan of care. Objective - Vital Signs Vital signs: Vital Signs Temp 98.3 F 09/10/19 08:00 Pulse 90 09/10/19 08:00 Resp 18 09/10/19 08:00 BP 113/58 09/10/19 08:00 Pulse Ox 98 09/10/19 08:00 Intake & Output 09/09/19 09/10/19 09/10/19 18:59 06:59 18:59 Intake Total 360 240 480 Output Total 1550 4000 Balance -1190 -3760 480 Weight 83.2 kg Intake: IV 0 0.9 @10ml/hr 0 Oral 360 240 480 Output: Urine 1550 4000 - Labs CBC & Chem 7: 09/10/19 05:34 09/09/19 06:46 Labs: Abnormal Lab Results - Last 24 Hours (Table) 09/09/19 09/09/19 09/10/19 Range/Units 12:28 20:33 05:34 RBC 3.64 L (4.30-5.90) m/uL Hgb 12.3 L (13.0-17.5) gm/dL Hct 35.7 L (39.0-53.0) % Neutrophils # 9.1 H (1.3-7.7) k/uL Lymphocytes # 0.6 L (1.0-4.8) k/uL POC Glucose (mg/dL) 257 H 153 H (75-99) mg/dL 09/10/19 Range/Units 05:42 RBC (4.30-5.90) m/uL Hgb (13.0-17.5) gm/dL Hct (39.0-53.0) % Neutrophils # (1.3-7.7) k/uL Lymphocytes # (1.0-4.8) k/uL POC Glucose (mg/dL) 134 H (75-99) mg/dL <Jorge Aguayo - Last Filed: 09/10/19 12:07> Subjective Patient still having discomfort. Hematoma does not feel any larger however. Hemoglobin is stable. Continue to hold anticoagulation. Objective - Vital Signs Vital signs: Vital Signs Temp 98.6 F 09/10/19 10:55 Pulse 71 09/10/19 11:15 Resp 18 09/10/19 11:15 BP 130/74 09/10/19 10:55 Pulse Ox 94 L 09/10/19 10:55 Intake & Output 09/09/19 09/10/19 09/10/19 18:59 06:59 18:59 Intake Total 360 240 480 Output Total 1550 4000 Balance -1190 -3760 480 Weight 83.2 kg Intake: IV 0 0.9 @10ml/hr 0 Oral 360 240 480 Output: Urine 1550 4000 - Labs CBC & Chem 7: 09/10/19 05:34 09/09/19 06:46 Labs: Abnormal Lab Results - Last 24 Hours (Table) 09/09/19 09/09/19 09/10/19 Range/Units 12:28 20:33 05:34 RBC 3.64 L (4.30-5.90) m/uL Hgb 12.3 L (13.0-17.5) gm/dL Hct 35.7 L (39.0-53.0) % Neutrophils # 9.1 H (1.3-7.7) k/uL Lymphocytes # 0.6 L (1.0-4.8) k/uL POC Glucose (mg/dL) 257 H 153 H (75-99) mg/dL 09/10/19 09/10/19 Range/Units 05:42 11:48 RBC (4.30-5.90) m/uL Hgb (13.0-17.5) gm/dL Hct (39.0-53.0) % Neutrophils # (1.3-7.7) k/uL Lymphocytes # (1.0-4.8) k/uL POC Glucose (mg/dL) 134 H 116 H (75-99) mg/dL
[2019-09-10 11:50] LABS: Glucose,Whole Blood 116 mg/dL (75-99)
--- NOTE | 2019-09-10 13:54 | PN ---
PROGRESS NOTE Mr. Curran is in sinus rhythm. He has paroxysmal atrial fibrillation, was started on Eliquis and received subcu heparin. With this, he developed rectus sheath spontaneous hematoma. Her still has tenderness, but pain is better. Vitals are stable. No JVD, S1, S2 heard normally, short systolic murmur noted. Lungs are clear. Abdomen is soft. There is tenderness over the rectus abdominis. I am recommending no anticoagulation. Patient understands this very well. Will continue current medications. Hemoglobin appears to be stable indication. MMODL / IJN: [id number] /
--- NOTE | 2019-09-10 14:02 | P.PN ---
Subjective Progress Note Date: 09/10/19 Principal diagnosis: Fluid retention, the possibility of acute exacerbation of CHF On 09/08/2019 patient seen in follow-up on selective care unit. He states he did not have a good night last night, apparently he was was tachycardic, went into A. fib/flutter with a heart rate up in the 120s to 160s range, he was started on Cardizem drip, and heparin drip per weight-based protocol, she is currently in sinus mechanism with a controlled rate, with a rate of 90 BPM, denies any worsening dyspnea, he is on IV Lasix, 40 mg every 12 hours, he has produced 5.2 L in urine output, and he is in -3.3 net fluid balance over the last 24 hours, lower extremity edema has improved. Today's labs have been reviewed, showing white blood cell, 13.5, hemoglobin is 13.2, serum sodium is 129, same as yesterday, potassium is 3.8, chloride is 90, CO2 is 34, BUN is 17, creatinine is 0.59. He remains on fluid restriction of 1200 mL of fluid on the daily basis. On 09/09/2019 patient seen in follow-up on selective care unit, he has significant bruising in his pubic area and bruising and irregular bump consistent with hematoma of the right abdominal wall. CT of the abdomen and pelvis shows a rectus sheath hematoma. No significant drop in hemoglobin, today's hemoglobin is 12.7. White count is 14.0, serum sodium is 127, potassium is 5.4, chloride is 87, CO2 is 35, B1 is 25, creatinine is 0.73. Lung sounds are still quite noisy, with scattered wheezing and rhonchi, but equal air entry bilaterally. Not on any oxygen, pulse ox is 96% on room air, afebrile, hemodynamically patient is stable. He is currently in sinus mechanism. He is on oral dose of Lasix. No lower extremity edema. Cardiology is following, echocardiogram has been ordered, he continues on oral Levaquin, breathing treatments, and IV steroids. IV heparin has been discontinued, no anticoagulation in view of rectus sheath hematoma. Patient was seen by neurology services for his lower extremity weakness today is somewhat improved. MRI of the C-spine and MRI of the T-spine was recommended. On 09/10/2019 patient seen in follow-up on selective care unit. patient is resting in bed, remains pulse ox is 94%, lung sounds reveal scattered wheezes, and some minimal rhonchi, patient is afebrile, hemodynamically patient is stable, breathing overall although the chest is noisy is not causing him any acute distress. patient remains on Levaquin, and Diflucan, IV steroids at 40 mg every 8 hours, and nebulized bronchodilators. Vital signs have been stable, his lower extremity edema is improving, he still having some right abdominal wall tenderness at the site of the right rectus sheath hematologic today's labs have been reviewed showing hemoglobin of 12.3. Anticoagulation remains on hold, no couplets of chest pain, no hemoptysis, surgical services are following, neurology is following. MRI of the C-spine and T-spine showed degenerative disc disease most significant at the C5 and C6 mild spinal curvature in the thoracic spine. And aortic ectasia. Objective - Vital Signs Vital signs: Vital Signs Temp 98.6 F 09/10/19 10:55 Pulse 71 09/10/19 11:15 Resp 18 09/10/19 11:15 BP 130/74 09/10/19 10:55 Pulse Ox 94 L 09/10/19 10:55 Intake & Output 09/09/19 09/10/19 09/10/19 18:59 06:59 18:59 Intake Total 360 240 480 Output Total 1550 4000 2200 Balance -1190 -3760 -1720 Weight 83.2 kg Intake: IV 0 0.9 @10ml/hr 0 Oral 360 240 480 Output: Urine 1550 4000 2200 - Exam GENERAL EXAM: Alert, very pleasant 64-year-old white male, with room air pulse ox of 94% comfortable in no apparent distress. HEAD: Normocephalic/atraumatic. EYES: Normal reaction of pupils, equal size. Conjunctiva pink, sclera white. NOSE: Clear with pink turbinates. THROAT: No erythema or exudates. NECK: No masses, no JVD, no thyroid enlargement, no adenopathy. CHEST: No chest wall deformity. Symmetrical expansion. LUNGS: Equal air entry with diffuse rhonchi and wheezing CVS: Irregular rate and rhythm, normal S1 and S2, no gallops, no murmurs, no rubs ABDOMEN: No hepatosplenomegaly, normal bowel sounds, no guarding or rigidity. Soft, and the irregularities and bruising involving the mid abdomen, patient has a rectus sheath hematoma, tender, right side of the abdomen, and significant bruising of the pubic area EXTREMITIES: No clubbing, 1+ lower extremity, no cyanosis, 2+ pulses and upper and lower extremities. MUSCULOSKELETAL: Muscle strength and tone normal. SPINE: No scoliosis or deformity SKIN: No rashes CENTRAL NERVOUS SYSTEM: Alert and oriented -3. No focal deficits, tone is normal in all 4 extremities. PSYCHIATRIC: Alert and oriented -3. Appropriate affect. Intact judgment and insight. - Labs CBC & Chem 7: 09/10/19 05:34 09/09/19 06:46 Labs: Abnormal Lab Results - Last 24 Hours (Table) 09/09/19 09/10/19 09/10/19 Range/Units 20:33 05:34 05:42 RBC 3.64 L (4.30-5.90) m/uL Hgb 12.3 L (13.0-17.5) gm/dL Hct 35.7 L (39.0-53.0) % Neutrophils # 9.1 H (1.3-7.7) k/uL Lymphocytes # 0.6 L (1.0-4.8) k/uL POC Glucose (mg/dL) 153 H 134 H (75-99) mg/dL 09/10/19 Range/Units 11:48 RBC (4.30-5.90) m/uL Hgb (13.0-17.5) gm/dL Hct (39.0-53.0) % Neutrophils # (1.3-7.7) k/uL Lymphocytes # (1.0-4.8) k/uL POC Glucose (mg/dL) 116 H (75-99) mg/dL Assessment and Plan Plan: Assessment: #1. Increased swelling in bilateral lower extremities, and abdominal wall, possibly related to new onset of CHF, with previously documented diastolic dysfunction with EF of 50-55%. No evidence of significant valvular disease was noted on the echocardiogram from March 2019, right ventricular systolic pressure was measured at 34.8 mmHg. Echocardiogram showed mild concentric LVH mild tricuspid regurg and mild pulmonary hypertension #2. Recent hospitalization for acute exacerbation of chronic obstructive pulmonary disease, status post bronchoscopies with BAL 2, and bronchial lavage performed on 09/01/2019 showed evidence of pseudomonas aeruginosa, and Klebsiella oxytoca, and Jamila albicans, patient was discharged home on 09/04/2019 on oral course of Levaquin #3. New onset A. fib/A flutter with RVR #4. Hyponatremia, likely hypervolemic. Patient presented with serum sodium of 130, remains on fluid restriction with 1200 mL of fluid #5. Previous episode of atrial fibrillation in March, single episode, patient did not require anticoagulation #6. Glaucoma #7. Herring's esophagus #8. Previous history of tobacco use #9. Lower extremity weakness, patient is undergoing neurological evaluation, improved on today's exam #10. Hyponatremia, likely related to diuretic therapy, has been transitioned to oral diuretics today #11. Rectus sheath hematoma, hemodynamic patient is stable, hemoglobin is relatively stable at 12.7, anticoagulation is on hold, surgical services are following Plan: continue current medical treatment, continue steroids, nebulized bronchodilators, no acute respiratory distress, vital signs are stable, patient is on room air, continue current antibiotics, no fever or chills. hemoglobin is stable, practitioner at hematoma appears to be stable in appearance, anticoagulation remains on hold. I performed a history & physical examination of the patient and discussed their management with my nurse practitioner, Luana Arcos. I reviewed the nurse practitioner's note and agree with the documented findings and plan of care. Lung sounds are positive for diminished breath sounds. The findings and the impression was discussed with the patient. I attest to the documentation by the nurse practitioner. Time with Patient: Less than 30
[2019-09-10 16:43] LABS: Glucose,Whole Blood 112 mg/dL (75-99)
[2019-09-10] MEDS: LEVOFLOXACIN 500 MG TAB PO SCH (19:38)
[2019-09-10] MEDS: LATANOPROST 0.005% OPHTH DROPS 2.5 ML BTL LEFT EYE SCH (19:38)
[2019-09-10 19:46] LABS: Glucose,Whole Blood 163 mg/dL (75-99)
--- NOTE | 2019-09-10 20:13 | P.PN ---
Subjective Progress Note Date: 09/10/19 Principal diagnosis: The patient was lying on a seat and states he is about the same as yesterday. Denies further falls. Denies weakness, numbness. Objective - Vital Signs Vital signs: Vital Signs Temp 98.3 F 09/10/19 19:39 Pulse 97 09/10/19 19:39 Resp 18 09/10/19 19:39 BP 118/62 09/10/19 19:39 Pulse Ox 95 09/10/19 19:39 Intake & Output 09/10/19 09/10/19 09/11/19 06:59 18:59 06:59 Intake Total 240 960 Output Total 4000 3200 Balance -3760 -2240 Weight 83.2 kg Intake: Oral 240 960 Output: Urine 4000 3200 - Exam GENERAL: The patient is sitting in a chair and is in mild acute distress. CHEST: The heart rate is regular rate rhythm. No murmurs to auscultation. Lower extremity edema 1+ LUNG: Not labored breathing. ABDOMEN/GI: Bowel sounds present in all 4 quadrants. No tenderness to palpation throughout. NEUROLOGICAL: Higher mental function: The patient is awake, alert, oriented to self, place and time. Patient is following commands. No aphasia and no neglect. Cranial nerves: The pupils are round, equal and reactive to light and accommodation. Visual malagon right temporal field cut (thinks it chronic and states from macular degeneration and glaucoma). Extraocular movement is intact no nystagmus is noted. Facial sensation is normal to touch throughout. The facial strength is normal throughout. Hearing is normal bilaterally to hand rub. Tongue is midline and moved [id number] without any difficulty. No dysarthria is noted. Shoulder shrug is normal bilaterally. Motor: Gait: patient looking down on his feet, taking small steps and is cautious. The strength is 5 over 5 throughout. Normal tone and bulk. Negative Romberg. Cerebellum: Normal finger to nose bilaterally. Sensation: Sensation is decreased on the lateral aspect of the proximal lower extremity just distal to the knee and excess small focal patch, otherwise normal to light touch throughout. Reflexes (right/left): Biceps 3+/3+; triceps2+/2+; brachioradialis 3+/3+; patellar-3+/3+, ankles 1+/1+; Plantars : mute on right and unequivocal on left.. - Labs CBC & Chem 7: 09/10/19 05:34 09/09/19 06:46 Labs: Abnormal Lab Results - Last 24 Hours (Table) 09/09/19 09/10/19 09/10/19 Range/Units 20:33 05:34 05:42 RBC 3.64 L (4.30-5.90) m/uL Hgb 12.3 L (13.0-17.5) gm/dL Hct 35.7 L (39.0-53.0) % Neutrophils # 9.1 H (1.3-7.7) k/uL Lymphocytes # 0.6 L (1.0-4.8) k/uL POC Glucose (mg/dL) 153 H 134 H (75-99) mg/dL 09/10/19 09/10/19 09/10/19 Range/Units 11:48 16:42 19:44 RBC (4.30-5.90) m/uL Hgb (13.0-17.5) gm/dL Hct (39.0-53.0) % Neutrophils # (1.3-7.7) k/uL Lymphocytes # (1.0-4.8) k/uL POC Glucose (mg/dL) 116 H 112 H 163 H (75-99) mg/dL Assessment and Plan Assessment: This is a 64-year-old gentleman with a history of COPD, glaucoma, Ex-tobacco user stopped about one year ago and been smoking about 55 years in which about 1 year ago he had a mechanical fall and suffered numbness from mid back all the way down to his feet and has been progressively worsening up to his hands. This is constant numbness. He had 2 admissions recently one was about 2 weeks ago for COPD exacerbation with the pseudomonas and klebsiella and this recent admission he felt his whole body was swollen. He felt he is having the lower extremity weakness but today he felt like somewhat improvement. Exam showed brisk reflexes in the upper and lower extremies. A CT of the head there is no acute intracranial abnormality. The CT cervical spine done in 2013 showed degenerative changes throughout cervical spine without acute traumatic. Subjective Paresthesia and lower extremity weakness Rectal hematoma Plan: Because of the patient hyper reflexia of upper and lower extremity I recommend getting MRI of the C-spine and MRI of the T-spine since (since he had trauma to his thoracic area): Degenerative most significant at C5-C6. Mild curvature in the thoracic spine. Recommend consulting Dr. Kee. Regarding his bilateral lower extremity weakness that started yesterday (09/07/2019) and seems to be somewhat better today compared to yesterday might be due to deconditioning, since the patient had an admission about 2 weeks ago and another admission with edema in the lower extremity. Physical and occupation therapy are on board. His hemoglobin A1c is 6.6. Folate: 8.2, vitamin B12: 254, B6 level: pending TSH level: 1.84. Regarding his chronic hyponatremia he and this has been going on since 2013 and has been in the range of 127-134. Currently the sodium is 127 recommend slowly correcting the sodium and keep it within the normal range. Regarding Rectus Sheath hematoma: Defer management to Primary team. Regarding management of his COPD we'll defer to the primary team. The plan was discussed with the patient. We will continue to follow. Time with Patient: Greater than 30
--- NOTE | 2019-09-10 23:49 | P.CNOR ---
History of Present Illness - [facility] Consult date: 09/10/19 Requesting physician: Ti Lemus Consult reason: low back pain, other (Lower extremity weakness) History of present illness: Patient is a very pleasant 64-year-old male who is seen and examined the bedside for further evaluation in regards to his lumbar spine. We're consulted after incidental findings of degenerative changes to his lumbar spine were found on CT the abdomen and pelvis. Patient states he sustained a fall a year ago in his bathtub hitting his thoracic spine. He states shortly after his whole body went numb. He followed with his primary care provider who recommended continued conservative treatment for 3 months. His symptoms did not improve and he wanted a referral toneurology. He was unable to be referred and transferred to a new primary care provider. During this admission he asked for further evaluation with neurology due to his symptoms. After further discussion, he further states his symptoms are most significant with numbness in the bilateral armpits radiating across his chest and numbness in the bilateral feet. He does not have a specific pattern of radiculopathy. He feels generally weak in his lower extremities and unsteadiness in gait. He ambulates with small steps in a slightly flexed forward and bent to the left posture. He is not experiencing any significant upper extremity weakness but does feel generally weak with his arms. He has good range of motion of the cervical spine but has pain with cervical extension. During his admission he has had multiple imaging modalities taken including MRI and imaging of his cervical and thoracic spine with mild degenerative change was found his cervical spine most significant at C5-6. No evidence of significant spinal canal stenosis throughout his cervical spine or t horacic spine was found. He has not had imaging specific to his lumbar spine. He is not currently experiencing any significant low back pain. He is currently being treated by general surgery for treatment for rectal sheath hematoma. They're planning for conservative treatment at this time. Patient states he does not have a vehicle for transportation in the outpatient setting. He is hoping to work with case management at the time of discharge to help facilitate the ability to get him to his appointments. Patient has been seen by neurology who ordered MRI imaging of his brain, cervical spine and thoracic spine. Brain MRI imaging has not yet been completed. Patient was recently hospitalized for acute exacerbation of COPD, status post bronchoscopy, and bronchial lavage performed on 09/01/2019 with evidence of Pseudomonas and Jamila albicans. Patient was discharged on 09/04/2019 on Levaquin. Patient continues to be seen by multiple other medical providers including pulmonology, cardiology, medicine, and general surgery. Patient is being treated for acute diastolic heart failure with lower extremity edema and new onset atrial fibrillation. Patient's other medical history includes Herring's esophagus, hyponatremia, hypokalemia, and history of smoking. Past Medical History Past Medical History: COPD Additional Past Medical History / Comment(s): glaucoma History of Any Multi-Drug Resistant Organisms: None Reported Past Surgical History: Joint Replacement Additional Past Surgical History / Comment(s): LT SHOULDER sx in 2009 Past Psychological History: No Psychological Hx Reported Past Alcohol Use History: Occasional Additional Past Alcohol Use History / Comment(s): patient says he smoked for 45 years but quit 3 months ago. Drinks alcohol occasionally. Says a six pack lasts him about a month. Lives with daughter and her significant other. Past Drug Use History: None Reported - Past Family History Daughter(s) Family Medical History: No Reported History Medications and Allergies Home Medications Medication Instructions Recorded Confirmed Type Latanoprost [Xalatan 0.005%] 1 drop LEFT EYE HS 10/31/17 09/05/19 History Albuterol Inhaler [Ventolin Hfa 1 puff INHALATION RT-Q6H PRN 08/22/19 09/05/19 History Inhaler] Vit C/E/Zn/Coppr/Lutein/Zeaxan 1 tab PO DAILY 08/22/19 09/05/19 History [Preservision Areds 2 Softgel] Dicyclomine [Bentyl] 10 mg PO QID PRN #20 cap 09/04/19 09/05/19 Rx Fluconazole [Diflucan] 100 mg PO BID 5 Days #10 tab 09/04/19 09/05/19 Rx Ipratropium-Albuterol Nebulize 3 ml INHALATION RT-QID 30 Days #90 09/04/19 09/05/19 Rx [Duoneb 0.5 mg-3 mg/3 ml Soln] ml Levofloxacin [Levaquin] 500 mg PO DAILY 7 Days #7 tab 09/04/19 09/05/19 Rx Pantoprazole [Protonix] 40 mg PO BID 30 Days #60 tablet. 09/04/19 09/05/19 Rx predniSONE See Taper PO DIRECTED 09/05/19 09/05/19 History Apixaban [Eliquis] 5 mg PO BID #60 tab 09/08/19 Rx Allergies Allergy/AdvReac Type Severity Reaction Status Date / Time aspirin Allergy Rash/Hives Verified 09/05/19 22:35 Physical Examination Physical exam: Patient is awake, alert, and oriented 3 Vital signs stable Good chest excursion with deep inspiration and expiration Examination of the cervical, thoracic, and lumbar spine reveals skin is intact with no abrasions, lacerations, or bruises; no erythema, purulence or signs of infection Full range of motion of the cervical spine with adequate flexion, extension, and bilateral rotation Pain with cervical extension 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, thumb strength, interosseous strength, biceps strength, triceps strength, and shoulder strength positive sustained bilaterally Upper extremity strength 5/5 bilaterally Biceps reflex 3+ bilaterally and Brachioradialis reflexes 3+ bilaterally Evidence of some upper extremity hyperreflexia bilaterally Slight positive Samayoa's sign bilateral upper extremities Patient ambulates in a flexed forward and side bending left posture with feet everted taking small steps Patient ambulates with an unsteady gait Dorsiflexion, plantarflexion, and extensor hallucis longus positive sustained bilaterally Lower extremity strength globally weaker with positive sustained throughout range of motion bilaterally Evidence of +3-4 beats of clonus bilateral lower extremities No lower extremity hyperreflexia bilaterally Straight leg test negative bilateral lower extremities Negative Lasegue's test bilaterally No signs or symptoms of DVT; no calf pain No pain with internal and external rotation of the hips bilaterally Evidence of some swelling of the feet bilaterally Neurovascularly intact Results Pertinent studies: MRI of the cervical and thoracic spine taken on 09/09/2019: C3-4 posterior disc bulge with foraminal encroachment; C4-5 foraminal encroachment; C5-6 degenerative disc disease with posterior disc osteophyte complex resulting in mild spinal canal stenosis; C6-7 bilateral neural foraminal encroachment; visualized cervical and thoracic spinal cord is adequately maintained with no evidence of cord signal change; no evidence of thoracic spinal canal stenosis or neuroforaminal stenosis; no evidence of thoracic disc herniation; overall alignment is adequately maintained; no evidence of spondylolisthesis at the cervical or thoracic spine CT abdomen and pelvis taken on taken on 09/08/2019: Imaging reviewed for orthopedic puposes; no evidence of visualized compression fracture deformity from T10-S1; L3-4 apparent disc protrusion L4-5 degenerative disc disease and spondylolisthesis with posterior disc protrusion and osteophyte - Labs Labs: Abnormal Lab Results - Last 24 Hours (Table) 09/09/19 09/10/19 09/10/19 Range/Units 20:33 05:34 05:42 RBC 3.64 L (4.30-5.90) m/uL Hgb 12.3 L (13.0-17.5) gm/dL Hct 35.7 L (39.0-53.0) % Neutrophils # 9.1 H (1.3-7.7) k/uL Lymphocytes # 0.6 L (1.0-4.8) k/uL POC Glucose (mg/dL) 153 H 134 H (75-99) mg/dL 09/10/19 09/10/19 Range/Units 11:48 16:42 RBC (4.30-5.90) m/uL Hgb (13.0-17.5) gm/dL Hct (39.0-53.0) % Neutrophils # (1.3-7.7) k/uL Lymphocytes # (1.0-4.8) k/uL POC Glucose (mg/dL) 116 H 112 H (75-99) mg/dL H & H 09/05/19 09/06/19 09/07/19 Range/Units 22:37 03:20 05:42 Hgb 13.2 13.6 12.7 L (13.0-17.5) gm/dL Hct 40.8 42.3 40.3 (39.0-53.0) % 09/08/19 09/09/19 09/10/19 Range/Units 06:17 06:46 05:34 Hgb 13.2 12.7 L 12.3 L (13.0-17.5) gm/dL Hct 41.5 37.9 L 35.7 L (39.0-53.0) % Coagulation 09/05/19 Range/Units 22:37 INR 1.0 (<1.2) Result Diagrams: 09/10/19 05:34 09/09/19 06:46 Assessment and Plan Assessment: Assessment: Lower extremity neuropathy Generalized lower extremity weakness Low back pain Status post fall 1 year ago with pain to his thoracic spine Positive clonus bilateral lower extremities Unsteady gait Hyperreflexia Mild positive Samayoa's Sign bilateral upper extremities L4-5 spondylolisthesis and degenerative disc disease C5-6 degenerative disc disease with disc endplate complex with mild spinal stenosis Rectal sheath hematoma COPD History of smoking New onset atrial fibrillation Diastolic heart failure lower extremity edema History of Herring's esophagus Hyponatremia Hypokalemia Plan: Plan: 1. Cervical MRI and thoracic MRI imaging has been reviewed. CT the abdomen and pelvis has been reviewed for orthopedic purposes. Patient has been discussed in detail with Dr. Josh Kee. After physical examination of the patient, further discussion with the patient, and reviewing the imaging, we will plan to continue conservative treatment. Patient has been experiencing some ongoing back pain following a fall 1 year ago at which time he hit his thoracic spine. Since that time he feels he is experiencing numbness in the bilateral feet along with numbness under the armpits radiating across his chest. Patient also has an unsteady gait with hyperreflexia and positive beats of clonus. Reviewing of cervical and thoracic MRI imaging does not show evidence of significant spinal canal stenosis, neural foraminal stenosis, or cord signal change in the visualized cervical or thoracic spinal cord. Patient continues to be seen by neurology who is planning to obtain a brain MRI. I think a brain MRI is an appropriate plan of care. Patient does have significant symptoms that correlate well with a neurological cause. He does not have symptoms that correlate specifically with the level of his cervical spine, thoracic spine, or lumbar spine. He experiences numbness in the bilateral feet and feels the numbness radiates up his legs. He does not experience a specific radicular pattern in the bilateral lower extremities. He does have some back pain and generalized we akness in the lower extremities. Reviewing of CT imaging does show evidence of spondylolisthesis at L4-5. Although he has changes in his lumbar spine, it is difficult to correlate all of his symptoms to L4-5. L3-4 does show some evidence of disc protrusion. We did discuss the changes of his lumbar spine would not affect the numbness he experiences in his arm pits and across the chest. At the bedside he complains most significantly of the numbness in the armpits and across the chest. Given his recent cervical and thoracic MRI imaging, we discussed we can plan for consultation by pain management in this regard. Patient feels as good plan of care. We also discussed he should continue following with neurology and have the brain MRI as planned. Patient also feels this is a good plan of care. We did discuss we would be clear for discharge from an orthopedic spine standpoint. We will plan to have the patient follow-up in the outpatient setting in approximately 2-3 weeks for further evaluation. We discussed if he is not having any improvements in his symptoms in regards to his lumbar spine, we may plan to obtain a lumbar MRI imaging in the outpatient setting. 2. Patient does have other significant medical diagnoses. We did discuss he should continue with multiple other medical providers for treatment evaluation of his other significant medical diagnoses. He is currently being treated for rectal sheath hematoma, COPD, acute new onset atrial fibrillation, diastolic hea rt failure, and was recently discharged from the hospital following exacerbation of COPD. Patient will continue be seen by these multiple medical providers including general surgery, pulmonology, cardiology, and medicine. Time with Patient: Greater than 30 (Including obtaining history, physical examination, reviewing of imaging, and dictation.)
[2019-09-11 05:55] LABS: Basophils % (A) 0 %; Eosinophils % (A) 0 %; HCT 36.7 % (39.0-53.0); HGB 12.4 gm/dL (13.0-17.5); Lymphocytes # (A) 0.7 k/uL (1.0-4.8); Lymphocytes % (A) 7 %; MCH 33.9 pg (25.0-35.0); MCHC 33.7 g/dL (31.0-37.0); MCV 100.5 fL (80.0-100.0); Macrocytosis Slight; Mean Platelet Volume 6.6; Monocytes # (A) 0.4 k/uL (0-1.0); Monocytes % (A) 4 %; Neutrophils % (A) 89 %; Platelet Count 151 k/uL (150-450); RBC 3.65 m/uL (4.30-5.90); RDW 14.1 % (11.5-15.5); WBC 10.1 k/uL (3.8-10.6)
[2019-09-11] MEDS: INSULIN ASPART (NovoLOG) 100 UNIT/ML VIAL SQ SCH ×4 (06:15→20:41)
[2019-09-11 06:16] LABS: Glucose,Whole Blood 131 mg/dL (75-99)
[2019-09-11] MEDS: PANTOPRAZOLE 40 MG TABLET PO SCH ×2 (06:19→18:31)
[2019-09-11] MEDS: IPRATROPIUM-ALBUTEROL 3 ML NEB INHALATION SCH ×4 (07:31→20:10)
[2019-09-11] MEDS: SYMBICORT 160-4.5 MCG INHALER INHALATION SCH ×2 (07:32→20:10)
[2019-09-11] MEDS: FLUCONAZOLE 100 MG TAB PO SCH ×2 (09:15→19:54)
[2019-09-11] MEDS: methylPREDNISolone SOD SUCCI 40 MG/ML 1 ML VIAL IV SCH ×3 (09:15→22:22)
[2019-09-11] MEDS: [UNRECOGNIZED DRUG - OTHER] PO SCH ×2 (09:15→19:54)
[2019-09-11] MEDS: FUROSEMIDE 40 MG TAB PO SCH (09:15)
[2019-09-11] MEDS: METOPROLOL TARTRATE 50 MG TAB PO SCH (09:15)
[2019-09-11] MEDS: SPIRONOLACTONE 25 MG TAB PO SCH (09:15)
--- NOTE | 2019-09-11 09:56 | P.PN ---
<Gypsy Caldwell - Last Filed: 09/11/19 09:54> Subjective Progress Note Date: 09/11/19 CHIEF COMPLAINT: Rectus sheath hematoma HISTORY OF PRESENT ILLNESS: Patient examined this morning at the bedside. He reports abdominal discomfort but states it is slowly improving from yesterday. Tolerating diet. Denies nausea or vomiting. Hemoglobin remains stable at 12.4. PHYSICAL EXAM: VITAL SIGNS: Reviewed. GENERAL: Well-developed in no acute distress. HEENT: No sclera icterus. Extraocular movements grossly intact. Moist buccal mucosa. Head is atraumatic, normocephalic. ABDOMEN: Soft. Nondistended. Mild tenderness with palpation. Ecchymosis noted throughout abdomen NEUROLOGIC: Alert and oriented. Cranial nerves II through XII grossly intact. ASSESSMENT: 1. Rectus sheath hematoma PLAN: -Continue to hold anticoagulation at this time -Abdominal binder for comfort if patient wishes -Monitor hemoglobin -No surgical intervention recommended -Patient will be re-evaluated by Dr. Aguayo this afternoon Nurse practitioner note has been reviewed by physician. Signing provider agrees with the documented findings, assessment, and plan of care. Objective - Vital Signs Vital signs: Vital Signs Temp 97.6 F 09/11/19 09:15 Pulse 89 09/11/19 09:15 Resp 16 09/11/19 09:15 BP 114/66 09/11/19 09:15 Pulse Ox 97 09/11/19 09:15 Intake & Output 09/10/19 09/11/19 09/11/19 18:59 06:59 18:59 Intake Total 960 20 Output Total 3200 2100 Balance -2240 -2100 20 Weight 81.9 kg Intake: IV 20 Invasive Line 2 20 Oral 960 Output: Urine 3200 2100 - Labs CBC & Chem 7: 09/11/19 05:30 09/09/19 06:46 Labs: Abnormal Lab Results - Last 24 Hours (Table) 09/10/19 09/10/19 09/10/19 Range/Units 11:48 16:42 19:44 RBC (4.30-5.90) m/uL Hgb (13.0-17.5) gm/dL Hct (39.0-53.0) % MCV (80.0-100.0) fL Neutrophils # (1.3-7.7) k/uL Lymphocytes # (1.0-4.8) k/uL POC Glucose (mg/dL) 116 H 112 H 163 H (75-99) mg/dL 09/11/19 09/11/19 Range/Units 05:30 06:14 RBC 3.65 L (4.30-5.90) m/uL Hgb 12.4 L (13.0-17.5) gm/dL Hct 36.7 L (39.0-53.0) % MCV 100.5 H (80.0-100.0) fL Neutrophils # 9.0 H (1.3-7.7) k/uL Lymphocytes # 0.7 L (1.0-4.8) k/uL POC Glucose (mg/dL) 131 H (75-99) mg/dL <Jorge Aguayo - Last Filed: 09/11/19 14:52> Subjective Patient doing well today. Pain is improved. Hemoglobin stable. Patient being discharged after MRI later today. Consider resuming anticoagulation 2-3 days postdischarge. Objective - Vital Signs Vital signs: Vital Signs Temp 97.6 F 09/11/19 09:15 Pulse 80 09/11/19 11:30 Resp 16 09/11/19 09:15 BP 114/66 09/11/19 09:15 Pulse Ox 97 09/11/19 09:15 Intake & Output 09/10/19 09/11/19 09/11/19 18:59 06:59 18:59 Intake Total 960 320 Output Total 3200 2100 Balance -2240 -2100 320 Weight 81.9 kg 81.9 kg Intake: IV 20 Invasive Line 2 20 Oral 960 300 Output: Urine 3200 2100 - Labs CBC & Chem 7: 09/11/19 05:30 09/11/19 05:30 Labs: Abnormal Lab Results - Last 24 Hours (Table) 09/10/19 09/10/19 09/11/19 Range/Units 16:42 19:44 05:30 RBC 3.65 L (4.30-5.90) m/uL Hgb 12.4 L (13.0-17.5) gm/dL Hct 36.7 L (39.0-53.0) % MCV 100.5 H (80.0-100.0) fL Neutrophils # 9.0 H (1.3-7.7) k/uL Lymphocytes # 0.7 L (1.0-4.8) k/uL Sodium (137-145) mmol/L Chloride (98-107) mmol/L Carbon Dioxide (22-30) mmol/L Glucose (74-99) mg/dL POC Glucose (mg/dL) 112 H 163 H (75-99) mg/dL Calcium (8.4-10.2) mg/dL 09/11/19 09/11/19 09/11/19 Range/Units 05:30 06:14 12:50 RBC (4.30-5.90) m/uL Hgb (13.0-17.5) gm/dL Hct (39.0-53.0) % MCV (80.0-100.0) fL Neutrophils # (1.3-7.7) k/uL Lymphocytes # (1.0-4.8) k/uL Sodium 128 L (137-145) mmol/L Chloride 92 L (98-107) mmol/L Carbon Dioxide 34 H (22-30) mmol/L Glucose 127 H (74-99) mg/dL POC Glucose (mg/dL) 131 H 130 H (75-99) mg/dL Calcium 7.8 L (8.4-10.2) mg/dL
--- NOTE | 2019-09-11 11:12 | P.PN ---
Subjective Progress Note Date: 09/09/19 Principal diagnosis: Acute COPD exacerbation secondary to purulent tracheobronchitis New onset acute diastolic CHF Patient is a 64-year-old male with a known history of COPD, previous history of smoking who was recently discharged from the hospital on 09/01/2019, was treated for purulent tracheobronchitis and acute COPD exacerbation. Patient had bronchoscopy with bronchial lavage cultures growing Pseudomonas and Jamila albicans. Patient was discharged home on Levaquin and Diflucan. Patient came back to the hospital due to worsening bilateral lower extremities swelling and diffuse body pains and aches. Denied any fever or chills. Patient has been having persistent shortness of breath since yesterday. Patient was also having exertional dyspnea. Patient was tested for COVID-19 which was negative. Chest x-ray showed pleural and pulmonary scarring at the apices. No acute lung disease. No acute change. EKG showed sinus rhythm with premature supraventricular complexes with frequent PVCs. Laboratory data showed WBC 13.3, hemoglobin 13.6, platelets 205 and neutrophils 7.8 and lymphocytes 1.0 Sodium 128, potassium 3.2, chloride 87, bicarb is 28 Lactic acid 2.2 on admission proBNP 507 Troponin times one 0.015 CK 304 Patient is somewhat poor historian. 09/07/2019 Patient is currently lying in the bed. Bilateral leg swelling is better co mpared to yesterday. Patient is still having diffuse wheezing and scattered rhonchi on examination of the lung. No fever no chills. Patient is being continued IV Lasix which will be changed to by mouth in the next 24 hours. Cardiology and pulmonary is following. Monitor CBC and BMP tomorrow. 09/08/2019 Patient is currently lying in the bed comfortably. Patient states that he had a rough night. Patient went into A. fib with RVR last night and was started on Cardizem and heparin drip. Currently heart rate is controlled and Cardizem drip has been discontinued. Patient is currently IV Lasix 40 mg every 12 hourly. Lower extremity edema is improved. Patient does complain of right lower quadrant abdominal pain and knot-like density. CT of the abdomen and pelvis was done showed rectus sheath hematoma. Anticoagulation is on hold. Lab data showed WBC 13.5, hemoglobin 13.2, sodium 139, potassium 3.8, BUN 17 and creatinine 0.59 General surgery was consulted and pulmonary and cardiology is on board. 09/09/2019 Patient is currently lying in the bed comfortably. Still having exertional dyspnea and wheezing on examination. Patient is being continued on IV steroids and breathing treatments for now currently on room air. Patient is maintaining sinus rhythm. Cardizem drip has been discontinued and heart rate is better controlled. Lower extremity leg swelling is improving. Patient was seen by general surgery due to rectus sheath hematoma for which no surgical intervention was recommended. Cardiology and pulmonary is on board. Patient is being followed by neurology for his bilateral lower extremity weakness which somewhat improved now. MRI of the C-spine and MRI of the T-spine was recommended. Current medications reviewed. Current medications reviewed Objective - Vital Signs Vital signs: Vital Signs Temp 98.6 F 09/09/19 15:37 Pulse 74 09/09/19 17:20 Resp 16 09/09/19 15:37 BP 120/69 09/09/19 15:37 Pulse Ox 98 09/09/19 15:37 Intake & Output 09/09/19 09/09/19 09/10/19 06:59 18:59 06:59 Intake Total 600 360 Output Total 800 1550 Balance -200 -1190 Weight 84 kg Intake: IV 0 0.9 @10ml/hr 0 Oral 600 360 Output: Urine 800 1550 - Exam PHYSICAL EXAMINATION: Patient is lying in the bed comfortably, no acute distress, awake alert and oriented.. HEENT: Normocephalic. Neck is supple. Pupils reactive. Nostrils clear. Oral cavity is moist. Ears reveal no drainage. Neck reveals no JVD, carotid bruits, or thyromegaly. CHEST EXAMINATION: Trachea is central. Symmetrical expansion. diffuse expiratory wheezing and scattered rhonchi... CARDIAC: Normal S1, S2 with no gallops. No murmurs ABDOMEN: Soft. Bowel sounds normal. Right lower quadrant not like density, swelling and minimal tenderness., No organomegaly. No abdominal bruits. Extremities: 2+ edema. No clubbing or cyanosis Neurologically awake, alert, oriented x3 with well-coordinated movements. No focal deficits noted Skin: No rash or skin lesions. Psychiatric: Coperative. Nonsuicidal Musculoskeletal: No joint swelling or deformity. Normal range of motion. - Labs CBC & Chem 7: 09/11/19 05:30 09/09/19 06:46 Labs: Abnormal Lab Results - Last 24 Hours (Table) 09/08/19 09/09/19 09/09/19 Range/Units 20:14 06:26 06:46 WBC (3.8-10.6) k/uL RBC (4.30-5.90) m/uL Hgb (13.0-17.5) gm/dL Hct (39.0-53.0) % Neutrophils # (1.3-7.7) k/uL Lymphocytes # (1.0-4.8) k/uL Sodium 127 L (137-145) mmol/L Potassium 5.4 H (3.5-5.1) mmol/L Chloride 87 L (98-107) mmol/L Carbon Dioxide 35 H (22-30) mmol/L BUN 25 H (9-20) mg/dL Glucose 127 H (74-99) mg/dL POC Glucose (mg/dL) 150 H 140 H (75-99) mg/dL Calcium 8.2 L (8.4-10.2) mg/dL 09/09/19 09/09/19 Range/Units 06:46 12:28 WBC 14.0 H (3.8-10.6) k/uL RBC 3.83 L (4.30-5.90) m/uL Hgb 12.7 L (13.0-17.5) gm/dL Hct 37.9 L (39.0-53.0) % Neutrophils # 12.7 H (1.3-7.7) k/uL Lymphocytes # 0.7 L (1.0-4.8) k/uL Sodium (137-145) mmol/L Potassium (3.5-5.1) mmol/L Chloride (98-107) mmol/L Carbon Dioxide (22-30) mmol/L BUN (9-20) mg/dL Glucose (74-99) mg/dL POC Glucose (mg/dL) 257 H (75-99) mg/dL Calcium (8.4-10.2) mg/dL Assessment and Plan Assessment: Worsening shortness of breath due to acute COPD exacerbation with a purulent tracheobronchitis. status post bronchoscopy with BAL on 08/29/2019, and repeat bronchoscopy with BAL on 09/03/2019. Bronchial cultures growing Pseudomonas, Klebsiella and Jamila albicans. Fluid cytopathology showed no malignant cells. Bilateral lower extremity swelling with slightly elevated BNP level Due to acute CHF with diastolic dysfunction Atrial fibrillation with rapid ventricular rate. New onset. Right rectus sheath hematoma. bilateral lower extremity weakness. Neurology is following. Single episode of atrial fibrillation March 2019. Not requiring anticoagulation. Herring's esophagus Hypervolemic hyponatremia Hypokalemia Lactic acidosis on admission due to hypoxia resolved now Previous history of smoking Osteoarthritis History of C. difficile colitis DVT prophylaxis with heparin subcu Plan: Patient will be continued on IV steroids and duo nebs. Continue with IV Lasix 40 mg Q12. Monitor electrolytes closely. 2D echocardiogram showed his ejection fraction 40-40%. Moderate global hypokinesis of left ventricle.cardiology is following. Patient was started on anticoagulation and metoprolol. General surgery was consulted due to rectus sheath hematoma. Continue with antibiotics in the form of Levaquin due to recent bronchial cultures growing Pseudomonas and Klebsiella. Further recommendations based on the clinical course. Prognosis guarded. Time with Patient: Greater than 30
--- NOTE | 2019-09-11 11:17 | P.PN ---
Subjective Progress Note Date: 09/10/19 Principal diagnosis: Acute COPD exacerbation secondary to purulent tracheobronchitis New onset acute diastolic CHF Patient is a 64-year-old male with a known history of COPD, previous history of smoking who was recently discharged from the hospital on 09/01/2019, was treated for purulent tracheobronchitis and acute COPD exacerbation. Patient had bronchoscopy with bronchial lavage cultures growing Pseudomonas and Jamila albicans. Patient was discharged home on Levaquin and Diflucan. Patient came back to the hospital due to worsening bilateral lower extremities swelling and diffuse body pains and aches. Denied any fever or chills. Patient has been having persistent shortness of breath since yesterday. Patient was also having exertional dyspnea. Patient was tested for COVID-19 which was negative. Chest x-ray showed pleural and pulmonary scarring at the apices. No acute lung disease. No acute change. EKG showed sinus rhythm with premature supraventricular complexes with frequent PVCs. Laboratory data showed WBC 13.3, hemoglobin 13.6, platelets 205 and neutrophils 7.8 and lymphocytes 1.0 Sodium 128, potassium 3.2, chloride 87, bicarb is 28 Lactic acid 2.2 on admission proBNP 507 Troponin times one 0.015 CK 304 Patient is somewhat poor historian. 09/07/2019 Patient is currently lying in the bed. Bilateral leg swelling is better co mpared to yesterday. Patient is still having diffuse wheezing and scattered rhonchi on examination of the lung. No fever no chills. Patient is being continued IV Lasix which will be changed to by mouth in the next 24 hours. Cardiology and pulmonary is following. Monitor CBC and BMP tomorrow. 09/08/2019 Patient is currently lying in the bed comfortably. Patient states that he had a rough night. Patient went into A. fib with RVR last night and was started on Cardizem and heparin drip. Currently heart rate is controlled and Cardizem drip has been discontinued. Patient is currently IV Lasix 40 mg every 12 hourly. Lower extremity edema is improved. Patient does complain of right lower quadrant abdominal pain and knot-like density. CT of the abdomen and pelvis was done showed rectus sheath hematoma. Anticoagulation is on hold. Lab data showed WBC 13.5, hemoglobin 13.2, sodium 139, potassium 3.8, BUN 17 and creatinine 0.59 General surgery was consulted and pulmonary and cardiology is on board. 09/09/2019 Patient is currently lying in the bed comfortably. Still having exertional dyspnea and wheezing on examination. Patient is being continued on IV steroids and breathing treatments for now currently on room air. Patient is maintaining sinus rhythm. Cardizem drip has been discontinued and heart rate is better controlled. Lower extremity leg swelling is improving. Patient was seen by general surgery due to rectus sheath hematoma for which no surgical intervention was recommended. Cardiology and pulmonary is on board. Patient is being followed by neurology for his bilateral lower extremity weakness which somewhat improved now. MRI of the C-spine and MRI of the T-spine was recommended. 09/10/19 Patient is currently lying in the bed comfortably. Bilateral wheezing is improving. Lower extremity swelling is improved as well. Otherwise patient had MRI of the C-spine and T-spine which was reviewed by pelvic surgery and recommended conservative management at this time. Anticoagulation is on hold due to rectus sheath hematoma. Hemoglobin is stable. Patient is being continued on antibiotics due to recent bronchial washing showing Pseudomonas. Patient is being followed by pulmonary, neurology and general surgery. Laboratory data showed hemoglobin 12.3 and WBC 10.2 Platelets 158 Current medications reviewed Objective - Vital Signs Vital signs: Vital Signs Temp 98.6 F 09/10/19 10:55 Pulse 74 09/10/19 15:43 Resp 18 09/10/19 15:43 BP 130/74 09/10/19 10:55 Pulse Ox 97 09/10/19 15:34 Intake & Output 09/09/19 09/10/19 09/10/19 18:59 06:59 18:59 Intake Total 360 240 720 Output Total 1550 4000 2600 Balance -1190 -0850 -1880 Weight 83.2 kg Intake: IV 0 0.9 @10ml/hr 0 Oral 360 240 720 Output: Urine 1550 4000 2600 - Exam PHYSICAL EXAMINATION: Patient is lying in the bed comfortably, no acute distress, awake alert and oriented.. HEENT: Normocephalic. Neck is supple. Pupils reactive. Nostrils clear. Oral cavity is moist. Ears reveal no drainage. Neck reveals no JVD, carotid bruits, or thyromegaly. CHEST EXAMINATION: Trachea is central. Symmetrical expansion. diffuse expiratory wheezing and scattered rhonchi... CARDIAC: Normal S1, S2 with no gallops. No murmurs ABDOMEN: Soft. Bowel sounds normal. Right lower quadrant not like density, swelling and minimal tenderness., No organomegaly. No abdominal bruits. Extremities: 2+ edema. No clubbing or cyanosis Neurologically awake, alert, oriented x3 with well-coordinated movements. No focal deficits noted Skin: No rash or skin lesions. Psychiatric: Coperative. Nonsuicidal Musculoskeletal: No joint swelling or deformity. Normal range of motion. - Labs CBC & Chem 7: 09/11/19 05:30 09/09/19 06:46 Labs: Abnormal Lab Results - Last 24 Hours (Table) 09/09/19 09/10/19 09/10/19 Range/Units 20:33 05:34 05:42 RBC 3.64 L (4.30-5.90) m/uL Hgb 12.3 L (13.0-17.5) gm/dL Hct 35.7 L (39.0-53.0) % Neutrophils # 9.1 H (1.3-7.7) k/uL Lymphocytes # 0.6 L (1.0-4.8) k/uL POC Glucose (mg/dL) 153 H 134 H (75-99) mg/dL 09/10/19 09/10/19 Range/Units 11:48 16:42 RBC (4.30-5.90) m/uL Hgb (13.0-17.5) gm/dL Hct (39.0-53.0) % Neutrophils # (1.3-7.7) k/uL Lymphocytes # (1.0-4.8) k/uL POC Glucose (mg/dL) 116 H 112 H (75-99) mg/dL Assessment and Plan Assessment: Worsening shortness of breath due to acute COPD exacerbation with a purulent tracheobronchitis. status post bronchoscopy with BAL on 08/29/2019, and repeat bronchoscopy with BAL on 09/03/2019. Bronchial cultures growing Pseudomonas, Klebsiella and Jamila albicans. Fluid cytopathology showed no malignant cells. Bilateral lower extremity swelling with slightly elevated BNP level Due to acute CHF with diastolic dysfunction Atrial fibrillation with rapid ventricular rate. New onset. Right rectus sheath hematoma. bilateral lower extremity weakness. Neurology is following. Single episode of atrial fibrillation March 2019. Not requiring anticoagulation. Herring's esophagus Hypervolemic hyponatremia Hypokalemia Lactic acidosis on admission due to hypoxia resolved now Previous history of smoking Osteoarthritis History of C. difficile colitis DVT prophylaxis with heparin subcu Plan: Patient will be continued on IV steroids and duo nebs. Continue with IV Lasix 40 mg Q12. Monitor electrolytes closely. 2D echocardiogram showed his ejection fraction 40-40%. Moderate global hypokinesis of left ventricle.cardiology is following.anticoagulation is on hold due to rectus sheath hematoma. Patient was started on anticoagulation and metoprolol. General surgery was consulted due to rectus sheath hematoma. Continue with antibiotics in the form of Levaquin due to recent bronchial cultures growing Pseudomonas and Klebsiella. Further recommendations based on the clinical course. Prognosis guarded. Time with Patient: Greater than 30
[2019-09-11 11:43] LABS: African American GFR (CKD) >90 (>60 ml/min/1.73 sqM); Anion Gap 2 mmol/L; Blood Urea Nitrogen 20 mg/dL (9-20); Calcium 7.8 mg/dL (8.4-10.2); Carbon Dioxide 34 mmol/L (22-30); Chloride 92 mmol/L (98-107); Glucose 127 mg/dL (74-99); Non-African American GFR(CKD) >90 (>60 ml/min/1.73 sqM); Sodium 128 mmol/L (137-145)
--- NOTE | 2019-09-11 12:34 | P.PAINCN ---
History of Present Illness - Reason for Consult Consult date: 09/11/19 - History of Present Illness This is a 64 years old male who was admitted to [facility] because of generalized swelling and edema, shortness of breath, patient is complaining also of weakness in the upper and lower extremity , and the weakness associated with numbness and tingling sensation and burning throughout the body, the numbness is constant and according to the patient started recently, 2 weeks ago, patient denies any change in the movement or urination, patient had MRI of the cervical spine , which showed cervical degenerative disc disease, and C3 4 foraminal stenosis and cervical spondylosis with cervical facet arthropathy Past Medical History Past Medical History: COPD Additional Past Medical History / Comment(s): glaucoma History of Any Multi-Drug Resistant Organisms: None Reported Past Surgical History: Joint Replacement Additional Past Surgical History / Comment(s): LT SHOULDER sx in 2009 Past Psychological History: No Psychological Hx Reported Past Alcohol Use History: Occasional Additional Past Alcohol Use History / Comment(s): patient says he smoked for 45 years but quit 3 months ago. Drinks alcohol occasionally. Says a six pack lasts him about a month. Lives with daughter and her significant other. Past Drug Use History: None Reported - Past Family History Daughter(s) Family Medical History: No Reported History Medications and Allergies Home Medications Medication Instructions Recorded Confirmed Type Latanoprost [Xalatan 0.005%] 1 drop LEFT EYE HS 10/31/17 09/05/19 History Albuterol Inhaler [Ventolin Hfa 1 puff INHALATION RT-Q6H PRN 08/22/19 09/05/19 History Inhaler] Vit C/E/Zn/Coppr/Lutein/Zeaxan 1 tab PO DAILY 08/22/19 09/05/19 History [Preservision Areds 2 Softgel] Dicyclomine [Bentyl] 10 mg PO QID PRN #20 cap 09/04/19 09/05/19 Rx Fluconazole [Diflucan] 100 mg PO BID 5 Days #10 tab 09/04/19 09/05/19 Rx Ipratropium-Albuterol Nebulize 3 ml INHALATION RT-QID 30 Days #90 09/04/19 09/05/19 Rx [Duoneb 0.5 mg-3 mg/3 ml Soln] ml Levofloxacin [Levaquin] 500 mg PO DAILY 7 Days #7 tab 09/04/19 09/05/19 Rx Pantoprazole [Protonix] 40 mg PO BID 30 Days #60 tablet. 09/04/19 09/05/19 Rx predniSONE See Taper PO DIRECTED 09/05/19 09/05/19 History Apixaban [Eliquis] 5 mg PO BID #60 tab 09/08/19 Rx Allergies Allergy/AdvReac Type Severity Reaction Status Date / Time aspirin Allergy Rash/Hives Verified 09/05/19 22:35 Physical Exam Vitals: Vital Signs Temp Pulse Pulse Resp BP Pulse Ox 09/11/19 11:30 80 09/11/19 11:20 84 09/11/19 09:15 97.6 F 89 16 114/66 97 09/11/19 07:40 80 09/11/19 07:32 84 09/11/19 04:00 98.1 F 85 18 128/72 97 09/11/19 03:04 97 09/10/19 23:17 89 18 122/68 96 09/10/19 19:39 98.3 F 97 18 118/62 95 09/10/19 19:14 80 18 09/10/19 19:04 81 18 09/10/19 16:00 98.1 F 77 18 120/67 96 09/10/19 15:43 74 18 09/10/19 15:34 72 18 97 Intake and Output 09/10/19 09/11/19 09/11/19 22:59 06:59 14:59 Intake Total 480 320 Output Total 1000 2100 Balance -520 -2100 320 Intake: IV 20 Invasive Line 2 20 Oral 480 300 Output: Urine 1000 2100 Other: Weight 81.9 kg Physical Examinations : -Constitutiona : Cooperative , not in acute distress . -HEENT : nech : supple , no Lymphadenopathy , normal th yroid size . : eyes : no ptosis , no icterus, no photophobia . : ENT : normal of hearing , normal oropharynx , no Thrush . - Respiratory : Chest clear to auscultations Bilaterally , no wheezing , no Rhonchi . - Cardiovascula : regular rate and rhythem , S1 , S2 , no S3 , no S4. - Gastrointestina : abdomen soft no tenderness , bowel sounds , no organomegally . - Genitourinary : Defferred . - neurologic : Cranial nerve II to XII intact , no focal neurological deffecit . -psychatric : alert , oriented X 3 , appropriate affect , intact judgment and insight . -Lymphatic : no Lymphadenopathy . - musculoskeltal : Cervical Spine motor stregnth in the deltoid and biceps, normal right side , normal Left side motor stregnth biceps and the wrist extensors normal right side ,normal left side . motor stregnth in the triceps muscle . normal Right side , normal Left side deep tendon reflexes normal at the biceps , normal at Brachioradialis , normal at triceps. cervical facet loading test= Positive Bilaterally Spurling test= positive bilaterally. Neck distraction test= positive bilaterally. Ping sign= positive bilaterally. Lumber spine moter stegnth lower extremities ,thigh and legs 4- 5/5 Right side , 4- 5/5 Left side deep tendon reflexes : normal Knee Jerk , normal ankle Jerk lumber facet Loading Test =positive Right , positive Left Range of motion of the lumbar spine Flexion 30 degrees, extension 10 degrees strait leg raising test = positive at degree Fabere test= positive Right , and positive LT . Results CBC & Chem 7: 09/11/19 05:30 09/11/19 05:30 Labs: Abnormal Lab Results - Last 24 Hours (Table) 09/10/19 09/10/19 09/11/19 Range/Units 16:42 19:44 05:30 RBC 3.65 L (4.30-5.90) m/uL Hgb 12.4 L (13.0-17.5) gm/dL Hct 36.7 L (39.0-53.0) % MCV 100.5 H (80.0-100.0) fL Neutrophils # 9.0 H (1.3-7.7) k/uL Lymphocytes # 0.7 L (1.0-4.8) k/uL Sodium (137-145) mmol/L Chloride (98-107) mmol/L Carbon Dioxide (22-30) mmol/L Glucose (74-99) mg/dL POC Glucose (mg/dL) 112 H 163 H (75-99) mg/dL Calcium (8.4-10.2) mg/dL 09/11/19 09/11/19 Range/Units 05:30 06:14 RBC (4.30-5.90) m/uL Hgb (13.0-17.5) gm/dL Hct (39.0-53.0) % MCV (80.0-100.0) fL Neutrophils # (1.3-7.7) k/uL Lymphocytes # (1.0-4.8) k/uL Sodium 128 L (137-145) mmol/L Chloride 92 L (98-107) mmol/L Carbon Dioxide 34 H (22-30) mmol/L Glucose 127 H (74-99) mg/dL POC Glucose (mg/dL) 131 H (75-99) mg/dL Calcium 7.8 L (8.4-10.2) mg/dL Comments: MRI of the cervical and thoracic spine reviewed= C3 4 foraminal stenosis and cervical degenerative disc disease cervical spondylosis and cervical facet arthropathy Assessment and Plan Plan: Assessment and plan=1 generalized numbness and tingling sensation in the upper and lower extremity,, rule out cervical and lumbar radiculopathy versus intracranial etiology, patient didn't have MRI of the brain, recommend starting patient on Neurontin 100 mg 3 times a day, will await the results of the MRI of the brain, patient can be seen as an outpatient after he is discharged , we'll reevaluate if he is a candidate for any pain management interventions, we'll consider doing cervical epidural steroid injection as an outpatient if it's indicated Time with Patient: Greater than 30 PQRS Measure Charge Sheet PQRS Narrative: Smoking Status Former smoker Do You Want the Pneumonia No Vaccine AT THIS TIME? Blood Pressure [Right Arm] 114/66 Blood Pressure 131/70 Pain Intensity [None] 0 Pain Intensity 0 Pain Scale Used Numeric (1 - 10) Scale Used Numeric (1 - 10) Home Medications: Ambulatory Orders Latanoprost [Xalatan 0.005%] 1 drop LEFT EYE HS 10/31/17 Albuterol Inhaler [Ventolin Hfa Inhaler] 1 puff INHALATION RT-Q6H PRN 08/22/19 Vit C/E/Zn/Coppr/Lutein/Zeaxan [Preservision Areds 2 Softgel] 1 tab PO DAILY 08/22/19 Dicyclomine [Bentyl] 10 mg PO QID PRN #20 cap 09/04/19 Fluconazole [Diflucan] 100 mg PO BID 5 Days #10 tab 09/04/19 Ipratropium-Albuterol Nebulize [Duoneb 0.5 mg-3 mg/3 ml Soln] 3 ml INHALATION RT-QID 30 Days #90 ml 09/04/19 Levofloxacin [Levaquin] 500 mg PO DAILY 7 Days #7 tab 09/04/19 Pantoprazole [Protonix] 40 mg PO BID 30 Days #60 tablet. 09/04/19 predniSONE See Taper PO DIRECTED 09/05/19 Apixaban [Eliquis] 5 mg PO BID #60 tab 09/08/19
[2019-09-11 12:51] LABS: Glucose,Whole Blood 130 mg/dL (75-99)
--- NOTE | 2019-09-11 13:05 | P.PN ---
Subjective Progress Note Date: 09/11/19 Principal diagnosis: Fluid retention, acute exacerbation of congestive heart failure The patient is seen today 09/11/2019 in follow-up on the selective care unit. He is awake and alert in no acute distress. He is maintaining good O2 saturations in the upper 90s on room air. He's been afebrile. Hemodynamically stable. White count 10.1. Hemoglobin 12.4. Sodium 128. Potassium 5.0. Creatinine 0.72. He is continued on DuoNeb inhalations, Symbicort, Levaquin, Diflucan. Continue Ongoing generalized numbness, tingling cessation and weakness of the upper and lower extremities. Pain management is on the case for possible epidural steroid injections of the cervical spine. He is also been seen by neurology. Objective - Vital Signs Vital signs: Vital Signs Temp 97.6 F 09/11/19 09:15 Pulse 80 09/11/19 11:30 Resp 16 09/11/19 09:15 BP 114/66 09/11/19 09:15 Pulse Ox 97 09/11/19 09:15 Intake & Output 09/10/19 09/11/19 09/11/19 18:59 06:59 18:59 Intake Total 960 320 Output Total 3200 2100 Balance -2240 -2100 320 Weight 81.9 kg Intake: IV 20 Invasive Line 2 20 Oral 960 300 Output: Urine 3200 2100 - Exam GENERAL EXAM: Alert, very pleasant 64-year-old male patient, with room air pulse ox of 97% comfortable in no apparent distress. HEAD: Normocephalic/atraumatic. EYES: Normal reaction of pupils, equal size. Conjunctiva pink, sclera white. NOSE: Clear with pink turbinates. THROAT: No erythema or exudates. NECK: No masses, no JVD, no thyroid enlargement, no adenopathy. CHEST: No chest wall deformity. Symmetrical expansion. LUNGS: Equal air entry with faint end expiratory wheeze, diminished CVS: Irregular rate and rhythm, normal S1 and S2, no gallops, no murmurs, no rubs ABDOMEN: No hepatosplenomegaly, normal bowel sounds, no guarding or rigidity. Soft, and the irregularities and bruising involving the mid abdomen, patient has a rectus sheath hematoma, tender, right side of the abdomen, and significant bruising of the pubic area EXTREMITIES: No clubbing, 1+ lower extremity, no cyanosis, 2+ pulses and upper and lower extremities. MUSCULOSKELETAL: Muscle strength and tone normal. SPINE: No scoliosis or deformity SKIN: No rashes CENTRAL NERVOUS SYSTEM: No focal deficits, tone is normal in all 4 extremities. PSYCHIATRIC: Alert and oriented -3. Appropriate affect. Intact judgment and insight. - Labs CBC & Chem 7: 09/11/19 05:30 09/11/19 05:30 Labs: Abnormal Lab Results - Last 24 Hours (Table) 09/10/19 09/10/19 09/11/19 Range/Units 16:42 19:44 05:30 RBC 3.65 L (4.30-5.90) m/uL Hgb 12.4 L (13.0-17.5) gm/dL Hct 36.7 L (39.0-53.0) % MCV 100.5 H (80.0-100.0) fL Neutrophils # 9.0 H (1.3-7.7) k/uL Lymphocytes # 0.7 L (1.0-4.8) k/uL Sodium (137-145) mmol/L Chloride (98-107) mmol/L Carbon Dioxide (22-30) mmol/L Glucose (74-99) mg/dL POC Glucose (mg/dL) 112 H 163 H (75-99) mg/dL Calcium (8.4-10.2) mg/dL 09/11/19 09/11/19 09/11/19 Range/Units 05:30 06:14 12:50 RBC (4.30-5.90) m/uL Hgb (13.0-17.5) gm/dL Hct (39.0-53.0) % MCV (80.0-100.0) fL Neutrophils # (1.3-7.7) k/uL Lymphocytes # (1.0-4.8) k/uL Sodium 128 L (137-145) mmol/L Chloride 92 L (98-107) mmol/L Carbon Dioxide 34 H (22-30) mmol/L Glucose 127 H (74-99) mg/dL POC Glucose (mg/dL) 131 H 130 H (75-99) mg/dL Calcium 7.8 L (8.4-10.2) mg/dL Assessment and Plan Assessment: #1. Increased swelling in bilateral lower extremities, and abdominal wall, possibly related to new onset of CHF, with previously documented diastolic dysfunction with EF of 50-55%. No evidence of significant valvular disease was noted on the echocardiogram from March 2019, right ventricular systolic pressure was measured at 34.8 mmHg. Echocardiogram showed mild concentric LVH mild tricuspid regurg and mild pulmonary hypertension #2. Recent hospitalization for acute exacerbation of chronic obstructive pulmonary disease, status post bronchoscopies with BAL 2, and bronchial lavage performed on 09/01/2019 showed evidence of pseudomonas aeruginosa, and Klebsiella oxytoca, and Jamila albicans, patient was discharged home on 09/04/2019 on oral course of Levaquin #3. New onset A. fib/A flutter with RVR #4. Hyponatremia, likely hypervolemic. Patient presented with serum sodium of 130, remains on fluid restriction with 1200 mL of fluid #5. Previous episode of atrial fibrillation in March, single episode, mike ent did not require anticoagulation #6. Glaucoma #7. Herring's esophagus #8. Previous history of tobacco use #9. Lower extremity weakness, patient is undergoing neurological evaluation, improved on today's exam #10. Hyponatremia, likely related to diuretic therapy, has been transitioned to oral diuretics today #11. Rectus sheath hematoma, hemodynamic patient is stable, hemoglobin is re latively stable at 12.7, anticoagulation is on hold, surgical services are following Plan: The patient was seen and evaluated by Dr. Mitchell He remains stable from the pulmonary standpoint We will see the patient on an as-needed basis I, the cosigning physician, performed a history & physical examination of the patient. Lungs sounds with faint end expiratory wheeze, diminished. Maintaining good O2 saturations in the 90s on room air. I discussed the assessment and plan of care with my nurse practitioner, Brooke Apodaca. I attest to the above note as dictated by her.
[2019-09-11 14:10] VITALS: BMI 25.2
--- NOTE | 2019-09-11 14:59 | PN ---
PROGRESS NOTE Gentleman with paroxysmal atrial fibrillation, maintaining sinus rhythm. Also had a rectus sheath hematoma spontaneously with subcu injections of heparin and also Eliquis. Therefore, no anticoagulation. Blood pressure is fairly decent. I am going to increase Lopressor to 50 mg in the morning, 25 mg in the evening. Continue other medications. Increase activity. Patient can be discharged from a cardiac standpoint. Follow up with Dr. Sanchez in one week. MMODL / IJN: [id number] /
[2019-09-11 17:06] LABS: Glucose,Whole Blood 128 mg/dL (75-99)
[2019-09-11] MEDS: GABAPENTIN 100 MG CAP PO SCH ×2 (18:32→22:22)
[2019-09-11] MEDS: HYDROcodone/APAP 5-325MG 1 EACH TAB PO PRN ×2 (18:34→23:34)
--- NOTE | 2019-09-11 18:56 | P.PN ---
Subjective Progress Note Date: 09/11/19 Principal diagnosis: The patient was lying on a seat and states he is about the same as yesterday. Denies further falls. Denies weakness, numbness. The patient is sitting in the chair and had no new complaints. States his lower extremities strength seem about the same as yesterday. He is getting IV steroids. Objective - Vital Signs Vital signs: Vital Signs Temp 97.6 F 09/11/19 15:00 Pulse 80 09/11/19 16:10 Resp 16 09/11/19 15:00 BP 120/84 09/11/19 15:00 Pulse Ox 100 09/11/19 15:52 Intake & Output 09/10/19 09/11/19 09/11/19 18:59 06:59 18:59 Intake Total 960 1480 Output Total 3200 2100 2600 Balance -2240 -2100 -1120 Weight 81.9 kg 81.9 kg Intake: IV 40 Invasive Line 2 40 Oral 960 1440 Output: Urine 3200 2100 2600 - Exam GENERAL: The patient is sitting in a chair and is in mild acute distress. CHEST: The heart rate is regular rate rhythm. No murmurs to auscultation. Lower extremity edema 1+ LUNG: Not labored breathing. ABDOMEN/GI: Bowel sounds present in all 4 quadrants. No tenderness to palpation throughout. NEUROLOGICAL: Higher mental function: The patient is awake, alert, oriented to self, place and time. Patient is following commands. No aphasia and no neglect. Cranial nerves: The pupils are round, equal and reactive to light and accommodation. Visual malagon right temporal field cut (thinks it chronic and states from macular degeneration and glaucoma). Extraocular movement is intact no nystagmus is noted. Facial sensation is normal to touch throughout. The facial strength is normal throughout. Hearing is normal bilaterally to hand rub. Tongue is midline and moved [id number] without any difficulty. No dysarthria is noted. Shoulder shrug is normal bilaterally. Motor: Gait: patient looking down on his feet, taking small steps and is cautious. The strength is 5 over 5 throughout. Normal tone and bulk. Negative Romberg. Cerebellum: Normal finger to nose bilaterally. Sensation: Sensation is decreased on the lateral aspect of the proximal lower extremity just distal to the knee and excess small focal patch, otherwise normal to light touch throughout. Reflexes (right/left): Biceps 3+/3+; triceps2+/2+; brachioradialis 3+/3+; patellar-3+/3+, ankles 1+/1+; Plantars : mute on right and unequivocal on left.. - Labs CBC & Chem 7: 09/11/19 05:30 09/11/19 05:30 Labs: Abnormal Lab Results - Last 24 Hours (Table) 09/10/19 09/11/19 09/11/19 Range/Units 19:44 05:30 05:30 RBC 3.65 L (4.30-5.90) m/uL Hgb 12.4 L (13.0-17.5) gm/dL Hct 36.7 L (39.0-53.0) % MCV 100.5 H (80.0-100.0) fL Neutrophils # 9.0 H (1.3-7.7) k/uL Lymphocytes # 0.7 L (1.0-4.8) k/uL Sodium 128 L (137-145) mmol/L Chloride 92 L (98-107) mmol/L Carbon Dioxide 34 H (22-30) mmol/L Glucose 127 H (74-99) mg/dL POC Glucose (mg/dL) 163 H (75-99) mg/dL Calcium 7.8 L (8.4-10.2) mg/dL 09/11/19 09/11/19 09/11/19 Range/Units 06:14 12:50 17:05 RBC (4.30-5.90) m/uL Hgb (13.0-17.5) gm/dL Hct (39.0-53.0) % MCV (80.0-100.0) fL Neutrophils # (1.3-7.7) k/uL Lymphocytes # (1.0-4.8) k/uL Sodium (137-145) mmol/L Chloride (98-107) mmol/L Carbon Dioxide (22-30) mmol/L Glucose (74-99) mg/dL POC Glucose (mg/dL) 131 H 130 H 128 H (75-99) mg/dL Calcium (8.4-10.2) mg/dL Assessment and Plan Assessment: This is a 64-year-old gentleman with a history of COPD, glaucoma, Ex-tobacco user stopped about one year ago (smoked about 55 years) in which about 1 year ago he had a mechanical fall and suffered numbness from mid back all the way down to his feet and has been progressively worsening up to his hands. This is constant numbness. He had 2 admissions recently one was about 2 weeks ago for COPD exacerbation with the pseudomonas and klebsiella and this recent admission he felt his whole body was swollen. He felt he is having the lower extremity weakness but today he felt like somewhat improvement. Exam showed brisk reflexes in the upper and lower extremies. A CT of the head there is no acute intracranial abnormality. The CT cervical spine done in 2013 showed deg enerative changes throughout cervical spine without acute traumatic. Subjective Paresthesia and lower extremity weakness Chronic Hyponatremia (currently 128) Rectal hematoma Plan: Because of the patient hyper reflexia of upper and lower extremity I recommend getting MRI of the C-spine and MRI of the T-spine since (since he had trauma to his thoracic area): Reported as degenerative most significant at C5-C6. Mild curvature in the thoracic spine. -Orthopedic stated he will follow as outpatient in 2-3 weeks. -MRI Brain is not needed. Regarding his bilateral lower extremity weakness that started yesterday (09/07/2019) and seems to be somewhat better today compared to yesterday might be due to deconditioning, since the patient had an admission about 2 weeks ago and another admission with edema in the lower extremity. Physical and occupation therapy are on board. His hemoglobin A1c is 6.6. Folate: 8.2, vitamin B12: 254, B6 level: pending TSH level: 1.84. Regarding his chronic hyponatremia he and this has been going on since 2014 and has been in the range of 127-134. Currently the sodium is 128 recommend slowly correcting the sodium and keep it within the normal range. Regarding Rectus Sheath hematoma: Defer management to Primary team. Regarding management of his COPD we'll defer to the primary team. The plan was discussed with the patient. We will continue to follow. Rivera Cr MD Neurohospitalist Time with Patient: Greater than 30
[2019-09-11 19:53] VITALS: RESP 18
[2019-09-11] MEDS: LATANOPROST 0.005% OPHTH DROPS 2.5 ML BTL LEFT EYE SCH (19:54)
[2019-09-11] MEDS: LEVOFLOXACIN 500 MG TAB PO SCH (19:54)
[2019-09-11 20:22] LABS: Glucose,Whole Blood 147 mg/dL (75-99)
[2019-09-11] MEDS ORDERED: METOPROLOL TARTRATE 25 MG TAB PO SCH (21:00)
[2019-09-12 06:24] LABS: Glucose,Whole Blood 130 mg/dL (75-99)
[2019-09-12] MEDS: INSULIN ASPART (NovoLOG) 100 UNIT/ML VIAL SQ SCH ×2 (06:24→12:12)
[2019-09-12] MEDS: PANTOPRAZOLE 40 MG TABLET PO SCH (06:26)
[2019-09-12] MEDS: IPRATROPIUM-ALBUTEROL 3 ML NEB INHALATION SCH ×2 (09:13→12:21)
[2019-09-12] MEDS: SYMBICORT 160-4.5 MCG INHALER INHALATION SCH (09:13)
[2019-09-12 09:40] VITALS: BP 124/62; TEMP 98
[2019-09-12] MEDS: FUROSEMIDE 40 MG TAB PO SCH (09:41)
[2019-09-12] MEDS: METOPROLOL TARTRATE 50 MG TAB PO SCH (09:41)
[2019-09-12] MEDS: SPIRONOLACTONE 25 MG TAB PO SCH (09:41)
[2019-09-12] MEDS: FLUCONAZOLE 100 MG TAB PO SCH (09:41)
[2019-09-12] MEDS: GABAPENTIN 100 MG CAP PO SCH (09:41)
[2019-09-12] MEDS: [UNRECOGNIZED DRUG - OTHER] PO SCH (09:42)
[2019-09-12] MEDS: methylPREDNISolone SOD SUCCI 40 MG/ML 1 ML VIAL IV SCH (09:42)
--- NOTE | 2019-09-12 09:45 | P.PN ---
Subjective Progress Note Date: 09/11/19 Principal diagnosis: Acute COPD exacerbation secondary to purulent tracheobronchitis New onset acute diastolic CHF Patient is a 64-year-old male with a known history of COPD, previous history of smoking who was recently discharged from the hospital on 09/01/2019, was treated for purulent tracheobronchitis and acute COPD exacerbation. Patient had bronchoscopy with bronchial lavage cultures growing Pseudomonas and Jamila albicans. Patient was discharged home on Levaquin and Diflucan. Patient came back to the hospital due to worsening bilateral lower extremities swelling and diffuse body pains and aches. Denied any fever or chills. Patient has been having persistent shortness of breath since yesterday. Patient was also having exertional dyspnea. Patient was tested for COVID-19 which was negative. Chest x-ray showed pleural and pulmonary scarring at the apices. No acute lung disease. No acute change. EKG showed sinus rhythm with premature supraventricular complexes with frequent PVCs. Laboratory data showed WBC 13.3, hemoglobin 13.6, platelets 205 and neutrophils 7.8 and lymphocytes 1.0 Sodium 128, potassium 3.2, chloride 87, bicarb is 28 Lactic acid 2.2 on admission proBNP 507 Troponin times one 0.015 CK 304 Patient is somewhat poor historian. 09/07/2019 Patient is currently lying in the bed. Bilateral leg swelling is better co mpared to yesterday. Patient is still having diffuse wheezing and scattered rhonchi on examination of the lung. No fever no chills. Patient is being continued IV Lasix which will be changed to by mouth in the next 24 hours. Cardiology and pulmonary is following. Monitor CBC and BMP tomorrow. 09/08/2019 Patient is currently lying in the bed comfortably. Patient states that he had a rough night. Patient went into A. fib with RVR last night and was started on Cardizem and heparin drip. Currently heart rate is controlled and Cardizem drip has been discontinued. Patient is currently IV Lasix 40 mg every 12 hourly. Lower extremity edema is improved. Patient does complain of right lower quadrant abdominal pain and knot-like density. CT of the abdomen and pelvis was done showed rectus sheath hematoma. Anticoagulation is on hold. Lab data showed WBC 13.5, hemoglobin 13.2, sodium 139, potassium 3.8, BUN 17 and creatinine 0.59 General surgery was consulted and pulmonary and cardiology is on board. 09/09/2019 Patient is currently lying in the bed comfortably. Still having exertional dyspnea and wheezing on examination. Patient is being continued on IV steroids and breathing treatments for now currently on room air. Patient is maintaining sinus rhythm. Cardizem drip has been discontinued and heart rate is better controlled. Lower extremity leg swelling is improving. Patient was seen by general surgery due to rectus sheath hematoma for which no surgical intervention was recommended. Cardiology and pulmonary is on board. Patient is being followed by neurology for his bilateral lower extremity weakness which somewhat improved now. MRI of the C-spine and MRI of the T-spine was recommended. 09/10/19 Patient is currently lying in the bed comfortably. Bilateral wheezing is improving. Lower extremity swelling is improved as well. Otherwise patient had MRI of the C-spine and T-spine which was reviewed by pelvic surgery and recommended conservative management at this time. Anticoagulation is on hold due to rectus sheath hematoma. Hemoglobin is stable. Patient is being continued on antibiotics due to recent bronchial washing showing Pseudomonas. Patient is being followed by pulmonary, neurology and general surgery. Laboratory data showed hemoglobin 12.3 and WBC 10.2 Platelets 158 09/11/2019 Patient is currently sitting which is comfortable. Shortness of breath is better. Patient still having some expiratory wheezing otherwise overall physical status is improving. Currently saturating well on room air. Patient has been afebrile. WBC 10.1, hemoglobin 12.4 Sodium level is 128 and potassium 5.0, creatinine 0.72. Patient is being continued on IV steroids and Symbicort and Levaquin and Diflucan. Patient is being followed by neurology and orthopedic surgery due to generalized weakness in both like lower extremities. MRI of the C-spine and T-spine was done. Otherwise in management was recommended. Anticoagulation is on hold due to rectal seen bleeding. Patient is being followed by cardiology, pulmonary and neurology. Pain management is on board for possible epidural steroid injections of the cervical spine. Current medications reviewed Objective - Vital Signs Vital signs: Vital Signs Temp 98.6 F 09/11/19 12:30 Pulse 80 09/11/19 16:10 Resp 16 09/11/19 12:30 BP 116/68 09/11/19 12:30 Pulse Ox 100 09/11/19 15:52 Intake & Output 07/15/20 07/16/20 07/16/20 18:59 06:59 18:59 Intake Total 960 750 Output Total 3200 2100 2600 Balance -2239 Weight 81.9 kg 81.9 kg Intake: IV 30 Invasive Line 2 30 Oral 960 720 Output: Urine 3200 2100 2600 - Exam PHYSICAL EXAMINATION: Patient is lying in the bed comfortably, no acute distress, awake alert and oriented.. HEENT: Normocephalic. Neck is supple. Pupils reactive. Nostrils clear. Oral cavi ty is moist. Ears reveal no drainage. Neck reveals no JVD, carotid bruits, or thyromegaly. CHEST EXAMINATION: Trachea is central. Symmetrical expansion. expiratory wheezing and scattered rhonchi... CARDIAC: Normal S1, S2 with no gallops. No murmurs ABDOMEN: Soft. Bowel sounds normal. Right lower quadrant not like density, swelling and minimal tenderness., No organomegaly. No abdominal bruits. Extremities: 2+ edema. No clubbing or cyanosis Neurologically awake, alert, oriented x3 with well-coordinated movements. No focal deficits noted. Skin: No rash or skin lesions. Psychiatric: Coperative. Nonsuicidal Musculoskeletal: No joint swelling or deformity. Normal range of motion. - Labs CBC & Chem 7: 09/11/19 05:30 09/11/19 05:30 Labs: Abnormal Lab Results - Last 24 Hours (Table) 09/10/19 09/10/19 09/11/19 Range/Units 16:42 19:44 05:30 RBC 3.65 L (4.30-5.90) m/uL Hgb 12.4 L (13.0-17.5) gm/dL Hct 36.7 L (39.0-53.0) % MCV 100.5 H (80.0-100.0) fL Neutrophils # 9.0 H (1.3-7.7) k/uL Lymphocytes # 0.7 L (1.0-4.8) k/uL Sodium (137-145) mmol/L Chloride (98-107) mmol/L Carbon Dioxide (22-30) mmol/L Glucose (74-99) mg/dL POC Glucose (mg/dL) 112 H 163 H (75-99) mg/dL Calcium (8.4-10.2) mg/dL 09/11/19 09/11/19 09/11/19 Range/Units 05:30 06:14 12:50 RBC (4.30-5.90) m/uL Hgb (13.0-17.5) gm/dL Hct (39.0-53.0) % MCV (80.0-100.0) fL Neutrophils # (1.3-7.7) k/uL Lymphocytes # (1.0-4.8) k/uL Sodium 128 L (137-145) mmol/L Chloride 92 L (98-107) mmol/L Carbon Dioxide 34 H (22-30) mmol/L Glucose 127 H (74-99) mg/dL POC Glucose (mg/dL) 131 H 130 H (75-99) mg/dL Calcium 7.8 L (8.4-10.2) mg/dL Assessment and Plan Assessment: Worsening shortness of breath due to acute COPD exacerbation with a purulent tracheobronchitis. status post bronchoscopy with BAL on 08/29/2019, and repeat bronchoscopy with BAL on 09/03/2019. Bronchial cultures growing Pseudomonas, Klebsiella and Jamila albicans. Fluid cytopathology showed no malignant cells. Bilateral lower extremity swelling with slightly elevated BNP level Due to acute CHF with diastolic dysfunction Atrial fibrillation with rapid ventricular rate. New onset. Right rectus sheath hematoma. bilateral lower extremity weakness. Neurology is following. Single episode of atrial fibrillation March 2019. Not requiring anticoagulation. Herring's esophagus Hypervolemic hyponatremia Hypokalemia Lactic acidosis on admission due to hypoxia resolved now Previous history of smoking Osteoarthritis History of C. difficile colitis DVT prophylaxis with heparin subcu Plan: Patient will be continued on IV steroids and duo nebs. Continued with IV Lasix 40 mg Q12. Changed to 40 mg by mouth daily. Monitor electrolytes closely. 2D echocardiogram showed his ejection fraction 40-40%. Moderate global hypokinesis of left ventricle.cardiology is following.anticoagulation is on hold due to rectus sheath hematoma. Patient was started on anticoagulation and metoprolol. General surgery was consulted due to rectus sheath hematoma. Continue with antibiotics in the form of Levaquin due to recent bronchial cultures growing Pseudomonas and Klebsiella. Further recommendations based on the clinical course. Prognosis guarded. Time with Patient: Greater than 30
--- NOTE | 2019-09-12 10:32 | P.PN ---
<Gypsy Caldwell - Last Filed: 09/12/19 10:24> Subjective Progress Note Date: 09/12/19 CHIEF COMPLAINT: Rectus sheath hematoma HISTORY OF PRESENT ILLNESS: Patient examined this morning at the bedside. He states his abdominal pain is significantly decreased today. He is tolerating diet. Denies nausea or vomiting. Hemoglobin has remained stable. PHYSICAL EXAM: VITAL SIGNS: Reviewed. GENERAL: Well-developed in no acute distress. HEENT: No sclera icterus. Extraocular movements grossly intact. Moist buccal mucosa. Head is atraumatic, normocephalic. ABDOMEN: Soft. Nondistended. Mild tenderness with palpation. Ecchymosis noted throughout abdomen NEUROLOGIC: Alert and oriented. Cranial nerves II through XII grossly intact. ASSESSMENT: 1. Rectus sheath hematoma PLAN: -Continue to hold anticoagulation at this time. May resume Sunday September 15, 2019 if patient remains stable -Abdominal binder for comfort if patient wishes -Monitor hemoglobin -No surgical intervention recommended -Stable for discharge from a surgical standpoint Nurse practitioner note has been reviewed by physician. Signing provider agrees with the documented findings, assessment, and plan of care. Objective - Vital Signs Vital signs: Vital Signs Temp 98.0 F 09/12/19 08:00 Pulse 84 09/12/19 09:13 Resp 18 09/12/19 08:00 BP 124/62 09/12/19 08:00 Pulse Ox 97 09/12/19 08:00 Intake & Output 09/11/19 09/12/19 09/12/19 18:59 06:59 18:59 Intake Total 1480 Output Total 2600 1600 300 Balance -1120 -1600 -300 Weight 81.9 kg 81.5 kg Intake: IV 40 Invasive Line 2 40 Oral 1440 Output: Urine 2600 1600 300 - Labs CBC & Chem 7: 09/11/19 05:30 09/11/19 05:30 Labs: Abnormal Lab Results - Last 24 Hours (Table) 09/11/19 09/11/19 09/11/19 Range/Units 05:30 12:50 17:05 Sodium 128 L (137-145) mmol/L Chloride 92 L (98-107) mmol/L Carbon Dioxide 34 H (22-30) mmol/L Glucose 127 H (74-99) mg/dL POC Glucose (mg/dL) 130 H 128 H (75-99) mg/dL Calcium 7.8 L (8.4-10.2) mg/dL 09/11/19 09/12/19 Range/Units 20:20 06:22 Sodium (137-145) mmol/L Chloride (98-107) mmol/L Carbon Dioxide (22-30) mmol/L Glucose (74-99) mg/dL POC Glucose (mg/dL) 147 H 130 H (75-99) mg/dL Calcium (8.4-10.2) mg/dL <Jorge Aguayo - Last Filed: 09/12/19 13:56> Subjective As above. No new complaints. Pain is much improved. Anticipate discharge today. We'll sign off. Call if needed. Objective - Vital Signs Vital signs: Vital Signs Temp 98.0 F 09/12/19 08:00 Pulse 80 09/12/19 12:31 Resp 18 09/12/19 08:00 BP 124/62 09/12/19 08:00 Pulse Ox 97 09/12/19 08:00 Intake & Output 09/11/19 09/12/19 09/12/19 18:59 06:59 18:59 Intake Total 1480 660 Output Total 2600 1600 1900 Balance -1120 -1600 -1240 Weight 81.9 kg 81.5 kg Intake: IV 40 Invasive Line 2 40 Oral 1440 660 Output: Urine 2600 1600 1900 - Labs CBC & Chem 7: 09/11/19 05:30 09/11/19 05:30 Labs: Abnormal Lab Results - Last 24 Hours (Table) 09/11/19 09/11/19 09/12/19 Range/Units 17:05 20:20 06:22 POC Glucose (mg/dL) 128 H 147 H 130 H (75-99) mg/dL 09/12/19 Range/Units 12:06 POC Glucose (mg/dL) 123 H (75-99) mg/dL
[2019-09-12 12:07] LABS: Glucose,Whole Blood 123 mg/dL (75-99)
--- NOTE | 2019-09-12 12:23 | P.PN ---
Subjective Progress Note Date: 09/12/19 Principal diagnosis: Fluid retention, the possibility of acute exacerbation of CHF On 09/08/2019 patient seen in follow-up on selective care unit. He states he did not have a good night last night, apparently he was was tachycardic, went into A. fib/flutter with a heart rate up in the 120s to 160s range, he was started on Cardizem drip, and heparin drip per weight-based protocol, she is currently in sinus mechanism with a controlled rate, with a rate of 90 BPM, denies any worsening dyspnea, he is on IV Lasix, 40 mg every 12 hours, he has produced 5.2 L in urine output, and he is in -3.3 net fluid balance over the last 24 hours, lower extremity edema has improved. Today's labs have been reviewed, showing white blood cell, 13.5, hemoglobin is 13.2, serum sodium is 129, same as yesterday, potassium is 3.8, chloride is 90, CO2 is 34, BUN is 17, creatinine is 0.59. He remains on fluid restriction of 1200 mL of fluid on the daily basis. On 09/09/2019 patient seen in follow-up on selective care unit, he has significant bruising in his pubic area and bruising and irregular bump consistent with hematoma of the right abdominal wall. CT of the abdomen and pelvis shows a rectus sheath hematoma. No significant drop in hemoglobin, today's hemoglobin is 12.7. White count is 14.0, serum sodium is 127, potassium is 5.4, chloride is 87, CO2 is 35, B1 is 25, creatinine is 0.73. Lung sounds are still quite noisy, with scattered wheezing and rhonchi, but equal air entry bilaterally. Not on any oxygen, pulse ox is 96% on room air, afebrile, hemodynamically patient is stable. He is currently in sinus mechanism. He is on oral dose of Lasix. No lower extremity edema. Cardiology is following, echocardiogram has been ordered, he continues on oral Levaquin, breathing treatments, and IV steroids. IV heparin has been discontinued, no anticoagulation in view of rectus sheath hematoma. Patient was seen by neurology services for his lower extremity weakness today is somewhat improved. MRI of the C-spine and MRI of the T-spine was recommended. On 09/10/2019 patient seen in follow-up on selective care unit. patient is resting in bed, remains pulse ox is 94%, lung sounds reveal scattered wheezes, and some minimal rhonchi, patient is afebrile, hemodynamically patient is stable, breathing overall although the chest is noisy is not causing him any acute distress. patient remains on Levaquin, and Diflucan, IV steroids at 40 mg every 8 hours, and nebulized bronchodilators. Vital signs have been stable, his lower extremity edema is improving, he still having some right abdominal wall tenderness at the site of the right rectus sheath hematologic today's labs have been reviewed showing hemoglobin of 12.3. Anticoagulation remains on hold, no couplets of chest pain, no hemoptysis, surgical services are following, neurology is following. MRI of the C-spine and T-spine showed degenerative disc disease most significant at the C5 and C6 mild spinal curvature in the thoracic spine. And aortic ectasia. On 09/12/2019 patient seen in follow-up on selective care unit, he is sitting up in the chair, calm and comfortable, he is in no acute distress, lung sounds reveal some mild congestion, and wheezing on forced exhale maneuver, the patient is on room air, he is in no respiratory distress, room air pulse ox is 97%, no fever or chills. He has right abdominal hematoma area over the rectus sheath muscle is stable in appearance, still some tenderness, with palpation. He still states that his legs feel weak, but he has been tolerating ambulation, he's been getting steroids, which we can taper down today, neurology is following, patient feels that his weakness in lower extremities is somewhat improved. CT of the head revealed no acute intracranial abnormality. Patient remains on Levaquin, his IV steroids to currently 40 mg every 8 hours which we can switch over to oral prednisone taper, he is on Symbicort Objective - Vital Signs Vital signs: Vital Signs Temp 98.0 F 09/12/19 08:00 Pulse 84 09/12/19 09:13 Resp 18 09/12/19 08:00 BP 124/62 09/12/19 08:00 Pulse Ox 97 09/12/19 08:00 Intake & Output 09/11/19 09/12/19 09/12/19 18:59 06:59 18:59 Intake Total 1480 240 Output Total 2600 1600 900 Balance -1120 -1600 -660 Weight 81.9 kg 81.5 kg Intake: IV 40 Invasive Line 2 40 Oral 1440 240 Output: Urine 2600 1600 900 - Exam GENERAL EXAM: Alert, very pleasant 64-year-old white male, with room air pulse ox of 94% comfortable in no apparent distress. HEAD: Normocephalic/atraumatic. EYES: Normal reaction of pupils, equal size. Conjunctiva pink, sclera white. NOSE: Clear with pink turbinates. THROAT: No erythema or exudates. NECK: No masses, no JVD, no thyroid enlargement, no adenopathy. CHEST: No chest wall deformity. Symmetrical expansion. LUNGS: Equal air entry with diffuse rhonchi and wheezing on forced exhale maneuver CVS: Irregular rate and rhythm, normal S1 and S2, no gallops, no murmurs, no rubs ABDOMEN: No hepatosplenomegaly, normal bowel sounds, no guarding or rigidity. Soft, and the irregularities and bruising involving the mid abdomen, patient has a rectus sheath hematoma, tender, right side of the abdomen, and significant bruising of the pubic area EXTREMITIES: No clubbing, 1+ lower extremity, no cyanosis, 2+ pulses and upper and lower extremities. MUSCULOSKELETAL: Muscle strength and tone normal. SPINE: No scoliosis or deformity SKIN: No rashes CENTRAL NERVOUS SYSTEM: Alert and oriented -3. No focal deficits, tone is normal in all 4 extremities. PSYCHIATRIC: Alert and oriented -3. Appropriate affect. Intact judgment and insight. - Labs CBC & Chem 7: 09/11/19 05:30 09/11/19 05:30 Labs: Abnormal Lab Results - Last 24 Hours (Table) 09/11/19 09/11/19 09/11/19 Range/Units 12:50 17:05 20:20 POC Glucose (mg/dL) 130 H 128 H 147 H (75-99) mg/dL 09/12/19 09/12/19 Range/Units 06:22 12:06 POC Glucose (mg/dL) 130 H 123 H (75-99) mg/dL Assessment and Plan Plan: Assessment: #1. Rectus sheath hematoma #2. New onset atrial fibrillation/atrial flutter with RVR, currently maintainin g sinus rhythm, patient is currently off anticoagulation, surgical services are following, no surgical interventions planned at this time #3. Recent hospitalization for acute exacerbation of chronic obstructive pulmonary disease, status post bronchoscopies with BAL 2, and bronchial lavage performed on 09/01/2019 showed evidence of pseudomonas aeruginosa, and Klebsiella oxytoca, and Jamila albicans, patient was discharged home on 09/04/2019 on oral course of Levaquin #4. Hyponatremia, possible chronic. Patient presented with serum sodium of 130, remains on fluid restriction with 1200 mL of fluid #5. Previous episode of atrial fibrillation in March, single episode, patient did not require anticoagulation #6. Glaucoma #7. Herring's esophagus #8. Previous history of tobacco use #9. Lower extremity weakness, patient is undergoing neurological evaluation, improved on today's exam #10. Hyponatremia, likely related to diuretic therapy, has been transitioned to oral diuretics today Plan: Patient still has some wheezing and mild congestion, continues on nebulized bronchodilators, he is on appropriate antibiotics for his recent history of pseudomonal and Klebsiella pulmonary infection, signs are stable, he is on room air, no worsening dyspnea. We can switch his IV steroids to oral prednisone taper starting at 40 mg, patient can be considered for discharge home once cleared by the primary care team. He will need outpatient follow-up with Dr. Cr in the office in 7-10 days I performed a history & physical examination of the patient and discussed their management with my nurse practitioner, Luana Arcos. I reviewed the nurse practitioner's note and agree with the documented findings and plan of care. Lung sounds are positive for diminished breath sounds. The findings and the impression was discussed with the patient. I attest to the documentation by the nurse practitioner. Time with Patient: Less than 30
[2019-09-12 12:31] VITALS: PULSE 80
[2019-09-13] MEDS ORDERED: predniSONE 20 MG TAB PO SCH (09:00)
== END 2019-09-12 15:27 | disposition home health service (06) | DRG 190 ==
LOC: EC 21:26 → 3SCARD 23:23 → OBSVTOIN 09-08 15:32
PROVIDERS: ADMIT Hospitalist; ATTEND Hospitalist
DX: J44.1 Chronic obstructive pulmonary disease with (acute) exacerbation (principal); I50.31 Acute diastolic (congestive) heart failure; E87.1 Hypo-osmolality and hyponatremia; I48.92 Unspecified atrial flutter; E87.2 Acidosis; I27.20 Pulmonary hypertension, unspecified; R29.2 Abnormal reflex; I48.0 Paroxysmal atrial fibrillation; I77.819 Aortic ectasia, unspecified site; E87.6 Hypokalemia; G62.9 Polyneuropathy, unspecified; G89.29 Other chronic pain; H40.9 Unspecified glaucoma; I07.1 Rheumatic tricuspid insufficiency; I49.1 Atrial premature depolarization; I49.3 Ventricular premature depolarization; K22.70 Barrett's esophagus without dysplasia; M19.90 Unspecified osteoarthritis, unspecified site; M43.16 Spondylolisthesis, lumbar region; M50.322 Other cervical disc degeneration at C5-C6 level; M79.81 Nontraumatic hematoma of soft tissue; Z20.828 Contact with and (suspected) exposure to other viral communicable diseases; T50.2X5A Adverse effect of carbonic-anhydrase inhibitors, benzothiadiazides and other diuretics, initial encounter; R26.81 Unsteadiness on feet; H35.30 Unspecified macular degeneration; M25.70 Osteophyte, unspecified joint; M48.02 Spinal stenosis, cervical region; M51.36 Other intervertebral disc degeneration, lumbar region; Z87.891 Personal history of nicotine dependence; Z86.19 Personal history of other infectious and parasitic diseases; Z79.01 Long term (current) use of anticoagulants; Z79.899 Other long term (current) drug therapy; Z79.890 Hormone replacement therapy; Z88.6 Allergy status to analgesic agent; Z96.612 Presence of left artificial shoulder joint
CPT/HCPCS: 36415; 71046; 72156; 72157; 74176; 80048; 80053; 82550; 82607; 82746; 83036; 83605; 83880; 84207; 84443; 84484; 85025; 85610; 85730; 93306; 94640; 94760; 96374; 99285

== ENCOUNTER 2019-09-14 00:34 | Emergency (ER) | payer MEDICARE, OTHER ==
[2019-09-14 00:50] VITALS: TEMP 97.8
[2019-09-14] MEDS ORDERED: HYDROmorphone 0.5 MG/0.5 ML SYRINGE IVP STA ×2 (00:54→01:32)
--- NOTE | 2019-09-14 00:58 | ED ---
General Adult HPI - General Chief complaint: Extremity Problem,Nontraumatic Stated complaint: Chest Pain Time Seen by Provider: 09/14/19 00:36 Source: patient, EMS Mode of arrival: EMS - History of Present Illness Initial comments: Dictation was produced using [employer] dictation software. please excuse any grammatical, word or spelling errors. This patient was cared for during a federal and state declared state of emergency secondary to Covid 19 Chief Complaint: 64-year-old male with past medical history of heart failure, COPD and dysrhythmia presents with bilateral hand pain and bilateral feet pain. History of Present Illness: Patient is 64-year-old male he called EMS because he was having bilateral hand pain and bilateral feet pain. Patient states she's never had anything like this before. Patient states it hurts to the touch. Patient was just discharged from our hospital 2 days ago. Patient was admitted for CHF exacerbation. Patient reports that he is started on a course however he was told to discontinue it for now because of some internal bleeding. Just 3 days ago patient was evaluated by pain specialist. His vital for similar compla int started on Neurontin with plans to follow up with pain management outpatient. Patient denies any chest pain. No shortness of breath. No abdominal pain. Patient denies any numbness and paresthesias to the extremities. The ROS documented in this emergency department record has been reviewed and confirmed by me. Those systems with pertinent positive or negative responses have been documented in the HPI. All other systems are other negative and/or noncontributory. PHYSICAL EXAM: General Impression: Alert and oriented x3, not in acute distress, poor dentition HEENT: Normocephalic atraumatic, extra-ocular movements intact, pupils equal and reactive to light bilaterally, mucous membranes moist. Cardiovascular: Heart regular rate and rhythm Chest: Able to complete full sentences, no retractions, no tachypnea Abdomen: abdomen soft, non-tender, non-distended, no organomegaly Musculoskeletal: Pulses present and equal in all extremities, no peripheral edema Motor: no focal deficits noted Extremities: Good pulses, good capillary refill, no skin changes Neurological: CN II-XII grossly intact, no focal motor or sensory deficits noted Skin: Intact with no visualized rashes Psych: Normal affect and mood ED course: 64-year-old male presents with local presentation consistent with n europathy. Patient was advised by pain management for similar complaint 3 days ago. As upon arrival shows blood pressure 9454, rest of vital signs were acceptable limits. EMS was concerned about his EKG. Patient reports that he does take a look was typically. He was reports that patient had runs of atrial flutter and atrial fibrillation. Her EKG obtained shows sinus tachycardia with sinus arrhythmia. Laboratory evaluation obtained. Patient is leukocytosis of 13.2 which is likely secondary to stress. Hemoglobin stable. Patient has a 123. Patient has baseline hyponatremia. Likely from his heart failure medications. No electrolytes derangement. Patient reevaluated bedside found in stable medical condition. Patient understands that he needs to follow-up with his pain specialist. Patient was given Neurontin. Patient is encouraged to continue taking Neurontin as it can take some time before it takes clinical effect. Patient stable. Patient given some Tylenol 3 tablets to take home. EKG interpretation: Ventricular rate 108, sinus tachycardia,. 160, QRS 80, QTc 458. No WA prolongation, no QTC prolongation, no ST or T-wave changes noted. EKG compared to 09/05/2019 showing no changes. Overall, this EKG is unremarkable - Related Data Home Medications Medication Instructions Recorded Confirmed Latanoprost [Xalatan 0.005%] 1 drop LEFT EYE HS 10/31/17 09/05/19 Albuterol Inhaler [Ventolin Hfa 1 puff INHALATION RT-Q6H PRN 08/22/19 09/05/19 Inhaler] Vit C/E/Zn/Coppr/Lutein/Zeaxan 1 tab PO DAILY 08/22/19 09/05/19 [Preservision Areds 2 Softgel] predniSONE See Taper PO DIRECTED 09/05/19 09/05/19 Previous Rx's Medication Instructions Recorded Dicyclomine [Bentyl] 10 mg PO QID PRN #20 cap 09/04/19 Ipratropium-Albuterol Nebulize 3 ml INHALATION RT-QID 30 Days #90 09/04/19 [Duoneb 0.5 mg-3 mg/3 ml Soln] ml Pantoprazole [Protonix] 40 mg PO BID 30 Days #60 tablet. 09/04/19 Apixaban [Eliquis] 5 mg PO BID #60 tab 09/08/19 Budesonide-Formot 160-4.5 Mcg 2 puff INHALATION RT-BID 30 Days 09/12/19 [Symbicort 160-4.5 Mcg Inhaler] #1 puff Furosemide [Lasix] 40 mg PO DAILY 30 Days #30 tab 09/12/19 Gabapentin [Neurontin] 100 mg PO TID #12 cap 09/12/19 Metoprolol Tartrate [Lopressor] 25 mg PO HS 30 Days #30 tab 09/12/19 Metoprolol Tartrate [Lopressor] 50 mg PO DAILY 30 Days #30 tab 09/12/19 Spironolactone [Aldactone] 25 mg PO DAILY 30 Days #30 tab 09/12/19 Allergies Allergy/AdvReac Type Severity Reaction Status Date / Time aspirin Allergy Rash/Hives Verified 09/05/19 22:35 Review of Systems ROS Statement: Those systems with pertinent positive or pertinent negative responses have been documented in the HPI. ROS Other: All systems not noted in ROS Statement are negative. Past Medical History Past Medical History: COPD Additional Past Medical History / Comment(s): glaucoma History of Any Multi-Drug Resistant Organisms: None Reported Past Surgical History: Joint Replacement Additional Past Surgical History / Comment(s): LT SHOULDER sx in 2009 Past Psychological History: No Psychological Hx Reported Smoking Status: Never smoker Past Alcohol Use History: None Reported Past Drug Use History: None Reported - Past Family History Daughter(s) Family Medical History: No Reported History Course Vital Signs 09/14/19 09/14/19 00:45 01:21 Temperature 97.8 F Pulse Rate 55 L 76 Respiratory 20 18 Rate Blood Pressure 94/54 94/73 O2 Sat by Pulse 98 97 Oximetry Medical Decision Making - Lab Data Result diagrams: 09/14/19 00:46 09/14/19 00:42 Lab Results 09/14/19 09/14/19 Range/Units 00:42 00:46 WBC 13.2 H (3.8-10.6) k/uL RBC 3.82 L (4.30-5.90) m/uL Hgb 13.0 (13.0-17.5) gm/dL Hct 37.5 L (39.0-53.0) % MCV 98.3 (80.0-100.0) fL MCH 34.1 (25.0-35.0) pg MCHC 34.7 (31.0-37.0) g/dL RDW 13.8 (11.5-15.5) % Plt Count 149 L (150-450) k/uL Neutrophils % 77 % Lymphocytes % 17 % Monocytes % 4 % Eosinophils % 2 % Basophils % 0 % Neutrophils # 10.2 H (1.3-7.7) k/uL Lymphocytes # 2.3 (1.0-4.8) k/uL Monocytes # 0.5 (0-1.0) k/uL Eosinophils # 0.2 (0-0.7) k/uL Basophils # 0.0 (0-0.2) k/uL Sodium 123 L (137-145) mmol/L Potassium 3.9 (3.5-5.1) mmol/L Chloride 92 L (98-107) mmol/L Carbon Dioxide 26 (22-30) mmol/L Anion Gap 5 mmol/L BUN 32 H (9-20) mg/dL Creatinine 0.84 (0.66-1.25) mg/dL Est GFR (CKD-EPI)AfAm >90 (>60 ml/min/1.73 sqM) Est GFR (CKD-EPI)NonAf >90 (>60 ml/min/1.73 sqM) Glucose 101 H (74-99) mg/dL Calcium 7.5 L (8.4-10.2) mg/dL Magnesium 2.0 (1.6-2.3) mg/dL Disposition Clinical Impression: Neuropathy Disposition: HOME SELF-CARE Condition: Good Instructions (If sedation given, give patient instructions): Peripheral Neuropathy (ED) Is patient prescribed a controlled substance at d/c from ED?: No Referrals: Bia Anderson MD [Primary Care Provider] - 1-2 days Dania Page MD [STAFF PHYSICIAN] - 1-2 days Time of Disposition: 01:46
[2019-09-14 01:09] LABS: Basophils % (A) 0 %; Eosinophils # (A) 0.2 k/uL (0-0.7); Eosinophils % (A) 2 %; HCT 37.5 % (39.0-53.0); Lymphocytes # (A) 2.3 k/uL (1.0-4.8); Lymphocytes % (A) 17 %; MCH 34.1 pg (25.0-35.0); MCHC 34.7 g/dL (31.0-37.0); MCV 98.3 fL (80.0-100.0); Mean Platelet Volume 6.9; Monocytes # (A) 0.5 k/uL (0-1.0); Monocytes % (A) 4 %; Neutrophils # (A) 10.2 k/uL (1.3-7.7); Neutrophils % (A) 77 %; Platelet Count 149 k/uL (150-450); RBC 3.82 m/uL (4.30-5.90); RDW 13.8 % (11.5-15.5); WBC 13.2 k/uL (3.8-10.6)
[2019-09-14 01:10] LABS: African American GFR (CKD) >90 (>60 ml/min/1.73 sqM); Anion Gap 5 mmol/L; Blood Urea Nitrogen 32 mg/dL (9-20); Calcium 7.5 mg/dL (8.4-10.2); Carbon Dioxide 26 mmol/L (22-30); Chloride 92 mmol/L (98-107); Glucose 101 mg/dL (74-99); Non-African American GFR(CKD) >90 (>60 ml/min/1.73 sqM); Potassium 3.9 mmol/L (3.5-5.1); Sodium 123 mmol/L (137-145)
[2019-09-14 02:03] VITALS: PULSE 76; RESP 18
[2019-09-14 02:07] VITALS: BP 92/65
--- NOTE | 2019-09-15 12:24 | P.DS ---
Providers Expected date of discharge: 09/12/19 Primary care physician: Bia Anderson [facility] Course: Final diagnosis Worsening shortness of breath due to acute COPD exacerbation with a purulent tracheobronchitis. status post bronchoscopy with BAL on 08/29/2019, and repeat bronchoscopy with BAL on 09/03/2019. Bronchial cultures growing Pseudomonas, Klebsiella and Jamila albicans. Fluid cytopathology showed no malignant cells. Bilateral lower extremity swelling with slightly elevated BNP level Due to acute CHF with diastolic dysfunction Atrial fibrillation with rapid ventricular rate. New onset. Right rectus sheath hematoma. bilateral lower extremity weakness. Single episode of atrial fibrillation March 2019. Not requiring anticoagulation. Herring's esophagus Hypervolemic hyponatremia Hypokalemia Lactic acidosis on admission due to hypoxia resolved now Previous history of smoking Osteoarthritis History of C. difficile colitis DVT prophylaxis Discharge disposition Patient is being discharged in a stable condition with guarded prognosis to [facility]. Patient will continue with home care in the outpatient setting. Patient will follow-up with Dr. Anderson upon discharge. Patient also instructed to follow- up with pulmonary along with pain management [facility] in the outpatient setting. Patient will also continue on a prednisone taper in the outpatient setting. Total time taken is 35 minutes. History of present illness This is an 64-year-old male who was recently admitted with Worsening bilateral lower extremity swelling along with diffuse body pains and aches and was being closely monitored. Patient was recently admitted with a COPD exacerbation and underwent bronchoscopy with BAL 2 growing Pseudomonas and Jamila and was discharged on Levaquin and Diflucan. Patient was also seen and evaluated by surgery as he was found to have a rectus sheath hematoma. Patient normally on anticoagulation although instructed to continue to hold per cardiology until surgery and primary care follow-up. Patient will also continue on a prednisone taper as he continued to have some wheezing noted on expiration. Patient will follow-up with house painter helper in the outpatient setting. Patient has completed antibiotics course and may discontinue. Currently no reports of chest pain, shortness of breath, or palpitations. Patient is afebrile. No reports of nausea or vomiting and patient is tolerating diet. Patient will continue with home care in the outpatient setting. On exam vital signs are stable. Temp is 98.0F, pulse is 77, respirations are 18, blood pressure is 124/62, oxygen saturation is 97% on room air. Cardio S1, S2 are muffled. Respiratory shows diminished breath sounds at the bases with a few scattered rhonchi noted. Some mild expiratory wheezing noted. Abdomen is soft and nontender. Nervous system shows No focal deficits. Please refer to medication reconciliation sheet for a list of medications. Patient Condition at Discharge: Good Plan - Discharge Summary New Discharge Prescriptions: No Action Latanoprost [Xalatan 0.005%] 1 drop LEFT EYE HS Vit C/E/Zn/Coppr/Lutein/Zeaxan [Preservision Areds 2 Softgel] 1 tab PO DAILY Albuterol Inhaler [Ventolin Hfa Inhaler] 1 puff INHALATION RT-Q6H PRN PRN Reason: Shortness Of Breath Dicyclomine [Bentyl] 10 mg PO QID PRN #20 cap PRN Reason: STOMACH PAIN Pantoprazole [Protonix] 40 mg PO BID 30 Days #60 tablet. Ipratropium-Albuterol Nebulize [Duoneb 0.5 mg-3 mg/3 ml Soln] 3 ml INHALATION RT-QID 30 Days #90 ml predniSONE See Taper PO DIRECTED Apixaban [Eliquis] 5 mg PO BID #60 tab Spironolactone [Aldactone] 25 mg PO DAILY 30 Days #30 tab Furosemide [Lasix] 40 mg PO DAILY 30 Days #30 tab Metoprolol Tartrate [Lopressor] 25 mg PO HS 30 Days #30 tab Metoprolol Tartrate [Lopressor] 50 mg PO DAILY 30 Days #30 tab Gabapentin [Neurontin] 100 mg PO TID #12 cap Budesonide-Formot 160-4.5 Mcg [Symbicort 160-4.5 Mcg Inhaler] 2 puff INHALATION RT-BID 30 Days #1 puff Discharge Medication List Latanoprost [Xalatan 0.005%] 1 drop LEFT EYE HS 10/31/17 [History] Albuterol Inhaler [Ventolin Hfa Inhaler] 1 puff INHALATION RT-Q6H PRN 08/22/19 [History] Vit C/E/Zn/Coppr/Lutein/Zeaxan [Preservision Areds 2 Softgel] 1 tab PO DAILY 08/22/19 [History] Dicyclomine [Bentyl] 10 mg PO QID PRN #20 cap 09/04/19 [Rx] Ipratropium-Albuterol Nebulize [Duoneb 0.5 mg-3 mg/3 ml Soln] 3 ml INHALATION RT-QID 30 Days #90 ml 09/04/19 [Rx] Pantoprazole [Protonix] 40 mg PO BID 30 Days #60 tablet. 09/04/19 [Rx] predniSONE See Taper PO DIRECTED 09/05/19 [History] Apixaban [Eliquis] 5 mg PO BID #60 tab 09/08/19 [Rx] Budesonide-Formot 160-4.5 Mcg [Symbicort 160-4.5 Mcg Inhaler] 2 puff INHALATION RT-BID 30 Days #1 puff 09/12/19 [Rx] Furosemide [Lasix] 40 mg PO DAILY 30 Days #30 tab 09/12/19 [Rx] Gabapentin [Neurontin] 100 mg PO TID #12 cap 09/12/19 [Rx] Metoprolol Tartrate [Lopressor] 25 mg PO HS 30 Days #30 tab 09/12/19 [Rx] Metoprolol Tartrate [Lopressor] 50 mg PO DAILY 30 Days #30 tab 09/12/19 [Rx] Spironolactone [Aldactone] 25 mg PO DAILY 30 Days #30 tab 09/12/19 [Rx] Follow up Appointment(s)/Referral(s): Dania Page MD [STAFF PHYSICIAN] - 1-2 days Bia Anderson MD [Primary Care Provider] - 1-2 days Patient Instructions/Handouts: Peripheral Neuropathy (ED) Discharge Disposition: HOME SELF-CARE
== END 2019-09-14 02:34 | disposition home or self-care (01) ==
LOC: EC 00:34
DX: G62.9 Polyneuropathy, unspecified (principal); J44.9 Chronic obstructive pulmonary disease, unspecified; I48.91 Unspecified atrial fibrillation; I48.92 Unspecified atrial flutter; D72.829 Elevated white blood cell count, unspecified; E87.1 Hypo-osmolality and hyponatremia; I50.9 Heart failure, unspecified; H40.9 Unspecified glaucoma; Z79.51 Long term (current) use of inhaled steroids; Z79.52 Long term (current) use of systemic steroids; Z88.6 Allergy status to analgesic agent; Z98.890 Other specified postprocedural states
CPT/HCPCS: 36415; 93005; 80048; 83735; 85025; 99285; 96374; 96376; J1170

== ENCOUNTER → 2019-11-22 | Outpatient (CLI) | payer MEDICARE, OTHER ==
--- NOTE | 2019-11-22 12:48 | MR ---
EXAMINATION TYPE: MR lumbar spine wo/w con DATE OF EXAM: 11/22/2019 COMPARISON: CT abdomen and pelvis September 08, 2019 HISTORY: Middle to low back pain for over one year per patient.. Spondylosis without myelopathy or ra diculopathy per order. TECHNIQUE: Multiplanar, multisequence images of the lumbar spine is performed without and with IV contrast, util izing 7.5 mL intravenous Gadavist FINDINGS: There is persistent dextroconvex scoliosis centered near the lumbosacral junction. There is persistent transitional type L6 vertebra 6. Stable slight grade 1 anterolisthesis L5 on L6. Sagittal images of the lumbar spine show vertebral body heights to remain satisfactory. Multilevel disc desic cation and mild disc space narrowing is present. The conus medullaris is normal in position and sign al ending at labeled L1-L2 disc space. The bone marrow signal intensity is within normal limits. No suspicious postcontrast enhancement. Axial images show labeled T12-L1 and L1-L2 levels to appear within normal limits. Axial images at labeled L2-L3 level show mild facet arthropathy bilaterally. Axial images at labeled L3-L4 level show mild/moderate facet arthropathy ligament flavum hypertrophy bilaterally. Axial images at L4-L5 level show moderate to advanced facet arthropathy and ligamentum flavum hypertr ophy mildly effacing posterior lateral thecal sac bilaterally. Axial images are labeled L5-L6 level show spondylolisthesis along with broad-based posterior disc pro trusion minimally effacing anterior thecal sac. There is moderate facet arthropathy bilaterally. Ther e is moderate left and mild right-sided inferior neural foraminal narrowing. Axial images at labeled L6-S1 level show asymmetric advanced left-sided facet arthropathy. Spinal can al preserved. Bilateral neural foramina patent. Mild to moderate generalized posterior paraspinal muscular atrophy noted. IMPRESSION: Scoliotic curvature. Multilevel degenerative changes greatest in the lower lumbar spine a s detailed above. Multilevel facet arthropathy noted.
== END | disposition home or self-care (01) ==
LOC: RADMRIMAIN 11:07
PROVIDERS: ATTEND Psychiatry & Neurology Neurology
DX: M47.816 Spondylosis without myelopathy or radiculopathy, lumbar region (principal); M47.817 Spondylosis without myelopathy or radiculopathy, lumbosacral region; M41.86 Other forms of scoliosis, lumbar region
CPT/HCPCS: 72158; A9585

== ENCOUNTER → 2019-11-25 | Outpatient (CLI) | payer MEDICARE, OTHER ==
[2019-11-26 04:36] LABS: C Reactive Protein <0.4 mg/dL (0.0-0.8); Creatine Kinase 78 U/L (35-257)
== END | disposition home or self-care (01) ==
LOC: LABWHC1 12:55
PROVIDERS: ATTEND Psychiatry & Neurology Neurology
DX: M47.812 Spondylosis without myelopathy or radiculopathy, cervical region (principal); M47.816 Spondylosis without myelopathy or radiculopathy, lumbar region
CPT/HCPCS: 36415; 82306; 82550; 82607; 85652; 86140

== ENCOUNTER 2020-04-06 15:58 | Emergency (ER) | payer MEDICARE, OTHER ==
[2020-04-06 16:18] VITALS: RESP 18; TEMP 98.2
[2020-04-06] MEDS ORDERED: HYDROcodone/APAP 5-325MG 1 EACH TAB PO STA (17:09)
--- NOTE | 2020-04-06 17:31 | ED ---
Extremity Problem HPI - General Chief complaint: Extremity Problem,Nontraumatic Stated complaint: knee swelling/pain Time Seen by Provider: 04/06/20 16:44 Source: patient, RN notes reviewed Mode of arrival: ambulatory Limitations: no limitations - History of Present Illness Initial comments: Patient is a [age] male that comes to emergency room complaining of left knee pain. He noted that his left knee was more swollen usual. He did note that he likes to walk 3 miles a day. He does have a history of COPD and heart failure. The pain is about 8 out of 10 currently and She did note that he also has arthritis in both knees. Originally denied any need for pain medication but reluctantly agreed to some due to comfort area. he denied any weakness numbness tingling loss of strength loss or range of motion chest pain shortness of breath headache nausea vomiting diarrhea constipation - Related Data Home Medications Medication Instructions Recorded Confirmed Latanoprost [Xalatan 0.005%] 1 drop LEFT EYE HS 10/31/17 09/05/19 Albuterol Inhaler [Ventolin Hfa 1 puff INHALATION RT-Q6H PRN 08/22/19 09/05/19 Inhaler] Vit C/E/Zn/Coppr/Lutein/Zeaxan 1 tab PO DAILY 08/22/19 09/05/19 [Preservision Areds 2 Softgel] predniSONE See Taper PO DIRECTED 09/05/19 09/05/19 Previous Rx's Medication Instructions Recorded Dicyclomine [Bentyl] 10 mg PO QID PRN #20 cap 09/04/19 Ipratropium-Albuterol Nebulize 3 ml INHALATION RT-QID 30 Days #90 09/04/19 [Duoneb 0.5 mg-3 mg/3 ml Soln] ml Pantoprazole [Protonix] 40 mg PO BID 30 Days #60 tablet. 09/04/19 Apixaban [Eliquis] 5 mg PO BID #60 tab 09/08/19 Budesonide-Formot 160-4.5 Mcg 2 puff INHALATION RT-BID 30 Days 09/12/19 [Symbicort 160-4.5 Mcg Inhaler] #1 puff Furosemide [Lasix] 40 mg PO DAILY 30 Days #30 tab 09/12/19 Gabapentin [Neurontin] 100 mg PO TID #12 cap 09/12/19 Metoprolol Tartrate [Lopressor] 25 mg PO HS 30 Days #30 tab 09/12/19 Metoprolol Tartrate [Lopressor] 50 mg PO DAILY 30 Days #30 tab 09/12/19 Spironolactone [Aldactone] 25 mg PO DAILY 30 Days #30 tab 09/12/19 Allergies Allergy/AdvReac Type Severity Reaction Status Date / Time aspirin Allergy Rash/Hives Verified 04/06/20 16:19 Review of Systems ROS Statement: Those systems with pertinent positive or pertinent negative responses have been documented in the HPI. ROS Other: All systems not noted in ROS Statement are negative. Past Medical History Past Medical History: Heart Failure, COPD Additional Past Medical History / Comment(s): glaucoma History of Any Multi-Drug Resistant Organisms: None Reported Past Surgical History: Joint Replacement Additional Past Surgical History / Comment(s): LT SHOULDER sx in 2009 Past Psychological History: No Psychological Hx Reported Smoking Status: Never smoker Past Alcohol Use History: None Reported Past Drug Use History: None Reported - Past Family History Daughter(s) Family Medical History: No Reported History General Exam Limitations: no limitations General appearance: alert, in no apparent distress Head exam: Present: atraumatic, normocephalic, normal inspection Eye exam: Present: normal appearance, PERRL, EOMI. Absent: scleral icterus, conjunctival injection, periorbital swelling ENT exam: Present: normal exam, mucous membranes moist Neck exam: Present: normal inspection. Absent: tenderness, meningismus, lymphadenopathy Respiratory exam: Present: normal lung sounds bilaterally. Absent: respiratory distress, wheezes, rales, rhonchi, stridor Cardiovascular Exam: Present: regular rate, normal rhythm, normal heart sounds. Absent: systolic murmur, diastolic murmur, rubs, gallop, clicks GI/Abdominal exam: Present: soft, normal bowel sounds. Absent: distended, tenderness, guarding, rebound, rigid Extremities exam: Present: normal inspection, full ROM, tenderness (Left knee), normal capillary refill. Absent: pedal edema, joint swelling, calf tenderness Neurological exam: Present: alert, oriented X3, CN II-XII intact Psychiatric exam: Present: normal affect, normal mood Skin exam: Present: warm, dry, intact, normal color. Absent: rash Course Vital Signs 04/06/20 04/06/20 04/06/20 16:15 16:24 16:30 Temperature 98.2 F Pulse Rate 105 H Respiratory 18 Rate Blood Pressure 103/86 103/86 154/84 O2 Sat by Pulse 98 97 97 Oximetry 04/06/20 04/06/20 04/06/20 17:00 17:30 18:00 Temperature Pulse Rate 90 Respiratory 18 Rate Blood Pressure 134/78 109/65 119/69 O2 Sat by Pulse 98 99 96 Oximetry 04/06/20 19:25 Temperature Pulse Rate 91 Respiratory Rate Blood Pressure O2 Sat by Pulse Oximetry Medical Decision Making - Medical Decision Making 65-year-old male complaining of left knee pain and swelling. Pain medication ordered and given. X-ray ordered. Case discussed with Dr. Melgar, who said the patient discharged home with follow- up to primary care - Lab Data Result diagrams: 04/06/20 17:53 04/06/20 17:53 Lab Results 04/06/20 04/06/20 04/06/20 Range/Units 17:53 17:53 17:53 WBC 12.1 H (3.8-10.6) k/uL RBC 4.24 L (4.30-5.90) m/uL Hgb 14.2 (13.0-17.5) gm/dL Hct 41.0 (39.0-53.0) % MCV 96.8 (80.0-100.0) fL MCH 33.5 (25.0-35.0) pg MCHC 34.7 (31.0-37.0) g/dL RDW 12.7 (11.5-15.5) % Plt Count 341 (150-450) k/uL MPV 7.3 Neutrophils % 76 % Lymphocytes % 15 % Monocytes % 5 % Eosinophils % 2 % Basophils % 1 % Neutrophils # 9.2 H (1.3-7.7) k/uL Lymphocytes # 1.8 (1.0-4.8) k/uL Monocytes # 0.6 (0-1.0) k/uL Eosinophils # 0.3 (0-0.7) k/uL Basophils # 0.1 (0-0.2) k/uL Sodium 134 L (137-145) mmol/L Potassium 4.2 (3.5-5.1) mmol/L Chloride 95 L (98-107) mmol/L Carbon Dioxide 28 (22-30) mmol/L Anion Gap 11 mmol/L BUN 12 (9-20) mg/dL Creatinine 0.73 (0.66-1.25) mg/dL Est GFR (CKD-EPI)AfAm >90 (>60 ml/min/1.73 sqM) Est GFR (CKD-EPI)NonAf >90 (>60 ml/min/1.73 sqM) Glucose 87 (74-99) mg/dL Calcium 9.0 (8.4-10.2) mg/dL Total Bilirubin 0.5 (0.2-1.3) mg/dL AST 27 (17-59) U/L ALT 13 (4-49) U/L Alkaline Phosphatase 127 H (38-126) U/L NT-Pro-B Natriuret Pep 322 pg/mL Total Protein 7.4 (6.3-8.2) g/dL Albumin 4.2 (3.5-5.0) g/dL - Radiology Data Radiology results: report reviewed, image reviewed No Acute cardiopulmonary processsmall knee joint effusion without acute osseous abnormality mild to moderate osteoarthritis of the medial compartment Disposition Clinical Impression: Joint effusion of knee, Knee pain Disposition: HOME SELF-CARE Condition: Stable Instructions (If sedation given, give patient instructions): Osteoarthritis (ED ), Swollen Knee Joint (ED) Additional Instructions: Please return to the Emergency Department if symptoms worsen or any other concerns. Follow-up primary care 1-2 days. Rest, elevate, ice knee avoid any strenuous activity or extra long walks. Take [id number] anti-inflammatories as needed for pain management. Is patient prescribed a controlled substance at d/c from ED?: No Referrals: Bia Anderson MD [Primary Care Provider] - 1-2 days Time of Disposition: 19:32
--- NOTE | 2020-04-06 17:56 | XR ---
Result: History: Pain. Comparison: None available. Technique: 3 views of the left knee. Findings: No acute fracture or dislocation is seen. The visualized osseous structures are in anatomic alignmen t. There is mild to moderate joint space narrowing of the medial compartment, otherwise preserved el sewhere. There is small knee joint effusion. Impression: Small knee joint effusion without acute osseous abnormality. Mild to moderate osteoarthritis of the medial compartment.
[2020-04-06] MEDS ORDERED: IPRATROPIUM-ALBUTEROL 3 ML NEB INHALATION STA (17:57)
[2020-04-06 17:58] LABS: Basophils # (A) 0.1 k/uL (0-0.2); Basophils % (A) 1 %; Eosinophils # (A) 0.3 k/uL (0-0.7); Eosinophils % (A) 2 %; HGB 14.2 gm/dL (13.0-17.5); Lymphocytes # (A) 1.8 k/uL (1.0-4.8); Lymphocytes % (A) 15 %; MCH 33.5 pg (25.0-35.0); MCHC 34.7 g/dL (31.0-37.0); MCV 96.8 fL (80.0-100.0); Mean Platelet Volume 7.3; Monocytes # (A) 0.6 k/uL (0-1.0); Monocytes % (A) 5 %; Neutrophils # (A) 9.2 k/uL (1.3-7.7); Neutrophils % (A) 76 %; Platelet Count 341 k/uL (150-450); RBC 4.24 m/uL (4.30-5.90); RDW 12.7 % (11.5-15.5); WBC 12.1 k/uL (3.8-10.6)
[2020-04-06 18:08] LABS: ALT 13 U/L (4-49); AST 27 U/L (17-59); African American GFR (CKD) >90 (>60 ml/min/1.73 sqM); Albumin 4.2 g/dL (3.5-5.0); Alkaline Phosphatase 127 U/L (38-126); Anion Gap 11 mmol/L; Blood Urea Nitrogen 12 mg/dL (9-20); Carbon Dioxide 28 mmol/L (22-30); Chloride 95 mmol/L (98-107); Glucose 87 mg/dL (74-99); Non-African American GFR(CKD) >90 (>60 ml/min/1.73 sqM); Potassium 4.2 mmol/L (3.5-5.1); Sodium 134 mmol/L (137-145); Total Bilirubin 0.5 mg/dL (0.2-1.3); Total Protein 7.4 g/dL (6.3-8.2)
--- NOTE | 2020-04-06 18:53 | XR ---
EXAMINATION TYPE: XR chest 2V DATE OF EXAM: 04/06/2020 COMPARISON: NONE HISTORY: 09/25/2019. TECHNIQUE: Frontal and lateral views of the chest are obtained. FINDINGS: There is no focal air space opacity, pleural effusion, or pneumothorax seen. There is sug gestion of COPD. The cardiac silhouette size is within normal limits. The osseous structures are in tact. IMPRESSION: No acute cardiopulmonary process.
[2020-04-06 20:33] VITALS: BP 138/72; PULSE 89
== END 2020-04-06 20:36 | disposition home or self-care (01) ==
LOC: EC 15:58
DX: M25.562 Pain in left knee (principal); M25.462 Effusion, left knee; I50.9 Heart failure, unspecified; J44.9 Chronic obstructive pulmonary disease, unspecified; Z79.51 Long term (current) use of inhaled steroids; Z88.6 Allergy status to analgesic agent
CPT/HCPCS: 36415; 71046; 80053; 83880; 85025; 94640; 99284

== ENCOUNTER → 2020-06-07 | Outpatient (CLI) | payer MEDICARE, OTHER ==
--- NOTE | 2020-06-07 12:22 | MR ---
EXAMINATION TYPE: MR knee LT wo con DATE OF EXAM: 06/07/2020 COMPARISON: X-ray 04/06/2020 HISTORY: LT knee swelling and pain TECHNIQUE: Multiplanar, multisequence imaging of the left knee is performed without IV contrast. FINDINGS: There are large areas of serpiginous heterogeneous signal involving the distal femur, proxi mal tibia as well as a small focal area within the proximal fibula. There is narrowing of the tricompartment spaces most marked involving the medial compartment with rem odeling tibial plateau and significant loss of joint space. Hypertrophic spurring noted. Anterior cruciate, posterior cruciate, and lateral collateral ligaments are intact. There is edema an d findings suggestive of grade 2 sprain MCL. There is a pseudo extrusion of the medial meniscus complex tear involving the posterior horn and body of the meniscus. Simple linear tear involving the posterior horn and body lateral meniscus. There is a small suprapatellar bursal fluid collection. IMPRESSION: 1. Osteoarthritis with complex tear posterior horn and body medial meniscus and evidence of a grade 2 MCL sprain. 2. Linear tear posterior horn and body lateral meniscus. 3. Diffuse abnormal marrow alteration can be associated with multiple bone infarcts correlate clinica lly.
== END | disposition home or self-care (01) ==
LOC: RADMRIMAIN 07:45
PROVIDERS: ATTEND Nurse Practitioner Family
DX: M23.322 Other meniscus derangements, posterior horn of medial meniscus, left knee (principal); M23.352 Other meniscus derangements, posterior horn of lateral meniscus, left knee; M17.12 Unilateral primary osteoarthritis, left knee

== ENCOUNTER 2020-08-13 12:56 | Inpatient (IN) | payer MEDICARE, OTHER ==
[2020-08-13] MEDS ORDERED: MORPHINE SULFATE 4 MG/ML SYRINGE IVP STA (14:22)
[2020-08-13] MEDS ORDERED: IPRATROPIUM-ALBUTEROL 3 ML NEB INHALATION STA (14:22)
[2020-08-13] MEDS ORDERED: methylPREDNISolone SOD SUCCI 125 MG/2 ML VIAL IV STA (14:22)
--- NOTE | 2020-08-13 14:24 | ED ---
General Adult HPI - General Chief complaint: Nausea/Vomiting/Diarrhea Stated complaint: Abd pain, knee pain Time Seen by Provider: 08/13/20 14:03 Source: patient, RN notes reviewed Mode of arrival: ambulatory Limitations: no limitations - History of Present Illness Initial comments: 65-year-old male presents to the emergency room for multiple complaints. Patient's main complaint is abdominal pain. Patient reports that he started to have left lower quadrant abdominal pain at around 8 AM this morning. Patient denies fevers. Denies nausea vomiting and diarrhea. Patient also reports he is having an exacerbation of his COPD today. States he feels wheezy. Patient denies increased cough.Patient has no other complaints at this time including shortness of breath, chest pain, nausea or vomiting, headache, or visual changes. - Related Data Home Medications Medication Instructions Recorded Confirmed Latanoprost [Xalatan 0.005%] 1 drop LEFT EYE HS 10/31/17 08/13/20 Albuterol Inhaler [Ventolin Hfa 1 puff INHALATION RT-Q6H PRN 08/22/19 08/13/20 Inhaler] Vit C/E/Zn/Coppr/Lutein/Zeaxan 1 tab PO BID 08/22/19 08/13/20 [Preservision Areds 2 Softgel] Acetaminophen-Codeine 300-30mg 2 tab PO Q4H PRN 08/13/20 08/13/20 [Tylenol w/codeine #3] Albuterol Nebulized [Ventolin 2.5 mg INHALATION RT-QID PRN 08/13/20 08/13/20 Nebulized] Cholecalciferol (Vitamin D3) 250 mcg PO DAILY 08/13/20 08/13/20 [Vitamin D3 (5000 Iu)] Gabapentin [Neurontin] 100 mg PO DAILY 08/13/20 08/13/20 Ibuprofen [Motrin] 800 mg PO Q8H PRN 08/13/20 08/13/20 Multivitamins, Thera [Multivitamin 1 tab PO DAILY 08/13/20 08/13/20 (formulary)] Previous Rx's Medication Instructions Recorded Furosemide [Lasix] 40 mg PO DAILY 30 Days #30 tab 09/12/19 Spironolactone [Aldactone] 25 mg PO DAILY 30 Days #30 tab 09/12/19 Allergies Allergy/AdvReac Type Severity Reaction Status Date / Time aspirin Allergy Rash/Hives Verified 08/13/20 16:07 Review of Systems ROS Statement: Those systems with pertinent positive or pertinent negative responses have been documented in the HPI. ROS Other: All systems not noted in ROS Statement are negative. Past Medical History Past Medical History: Heart Failure, COPD Additional Past Medical History / Comment(s): glaucoma History of Any Multi-Drug Resistant Organisms: None Reported Past Surgical History: Joint Replacement Additional Past Surgical History / Comment(s): LT SHOULDER sx in 2009 Past Psychological History: No Psychological Hx Reported Smoking Status: Never smoker Past Alcohol Use History: None Reported Past Drug Use History: None Reported - Past Family History Daughter(s) Family Medical History: No Reported History General Exam Limitations: no limitations General appearance: alert, in no apparent distress Head exam: Present: atraumatic, normocephalic, normal inspection Eye exam: Present: normal appearance, PERRL, EOMI. Absent: scleral icterus, conjunctival injection, periorbital swelling ENT exam: Present: normal exam, mucous membranes moist Neck exam: Present: normal inspection. Absent: tenderness, meningismus, lymphadenopathy Respiratory exam: Present: normal lung sounds bilaterally. Absent: respiratory distress, wheezes, rales, rhonchi, stridor Cardiovascular Exam: Present: regular rate, normal rhythm, normal heart sounds. Absent: systolic murmur, diastolic murmur, rubs, gallop, clicks GI/Abdominal exam: Present: soft, tenderness (Left lower quadrant and left upper quadrant abdominal tenderness.), normal bowel sounds. Absent: distended, guarding, rebound, rigid Neurological exam: Present: alert Course Vital Signs 08/13/20 08/13/20 08/13/20 13:12 13:47 14:33 Temperature 98.2 F Pulse Rate 100 87 81 Respiratory 20 18 18 Rate Blood Pressure 133/7 123/71 O2 Sat by Pulse 98 98 Oximetry 08/13/20 08/13/20 08/13/20 14:47 15:54 17:12 Temperature 97.9 F Pulse Rate 81 88 83 Respiratory 18 18 18 Rate Blood Pressure 127/77 137/81 O2 Sat by Pulse 97 96 Oximetry EKG Findings - EKG Comments: EKG Findings:: Normal sinus rhythm, ventricular rate 84, NV interval 140, QTC 477 Medical Decision Making - Medical Decision Making Vitals are stable. He does have wheezing on exam. No S3 distress. CBC and CMP unremarkable. Lactic acid 2.2, likely secondary to dehydration. Amylase 350, nonspecific. Lipase is normal. CT abdomen and pelvis shows no acute abnormality. Patient's pain does persist. He continues to be tender in the abdomen. Patient also continues to complain of shortness of breath after steroids and two duonebs. Chest x-ray was obtained which did so possible pulmonary congestion. Patient does have a history of CHF however BNP is 320. At this time patient will be admitted for COPD exacerbation. We will also start patient on a dose of Lasix. - Lab Data Result diagrams: 08/13/20 15:02 08/13/20 15:02 Lab Results 08/13/20 08/13/20 08/13/20 Range/Units 15:02 15:02 15:02 WBC 7.4 (3.8-10.6) k/uL RBC 3.75 L (4.30-5.90) m/uL Hgb 12.5 L (13.0-17.5) gm/dL Hct 36.3 L (39.0-53.0) % MCV 97.1 (80.0-100.0) fL MCH 33.2 (25.0-35.0) pg MCHC 34.3 (31.0-37.0) g/dL RDW 13.1 (11.5-15.5) % Plt Count 310 (150-450) k/uL MPV 6.8 Neutrophils % 71 % Lymphocytes % 14 % Monocytes % 8 % Eosinophils % 4 % Basophils % 1 % Neutrophils # 5.2 (1.3-7.7) k/uL Lymphocytes # 1.0 (1.0-4.8) k/uL Monocytes # 0.6 (0-1.0) k/uL Eosinophils # 0.3 (0-0.7) k/uL Basophils # 0.1 (0-0.2) k/uL Sodium 133 L (137-145) mmol/L Potassium 3.8 (3.5-5.1) mmol/L Chloride 93 L (98-107) mmol/L Carbon Dioxide 33 H (22-30) mmol/L Anion Gap 7 mmol/L BUN 8 L (9-20) mg/dL Creatinine 0.74 (0.66-1.25) mg/dL Est GFR (CKD-EPI)AfAm >90 (>60 ml/min/1.73 sqM) Est GFR (CKD-EPI)NonAf >90 (>60 ml/min/1.73 sqM) Glucose 108 H (74-99) mg/dL Lactic Ac Sepsis Rflx Plasma Lactic Acid Hugo (0.7-2.0) mmol/L Calcium 8.8 (8.4-10.2) mg/dL Total Bilirubin 0.4 (0.2-1.3) mg/dL AST 28 (17-59) U/L ALT 19 (4-49) U/L Alkaline Phosphatase 126 (38-126) U/L Troponin I (0.000-0.034) ng/mL NT-Pro-B Natriuret Pep pg/mL Total Protein 6.3 (6.3-8.2) g/dL Albumin 3.6 (3.5-5.0) g/dL Amylase 350 H* (30-110) U/L Lipase 57 (23-300) U/L Urine Color Yellow Urine Appearance Clear (Clear) Urine pH 7.0 (5.0-8.0) Ur Specific [place] 1.008 (1.001-1.035) Urine Protein Negative (Negative) Urine Glucose (UA) Negative (Negative) Urine Ketones Negative (Negative) Urine Blood Negative (Negative) Urine Nitrite Negative (Negative) Urine Bilirubin Negative (Negative) Urine Urobilinogen <2.0 (<2.0) mg/dL Ur Leukocyte Esterase Negative (Negative) 08/13/20 08/13/20 08/13/20 Range/Units 15:02 15:02 15:39 WBC (3.8-10.6) k/uL RBC (4.30-5.90) m/uL Hgb (13.0-17.5) gm/dL Hct (39.0-53.0) % MCV (80.0-100.0) fL MCH (25.0-35.0) pg MCHC (31.0-37.0) g/dL RDW (11.5-15.5) % Plt Count (150-450) k/uL MPV Neutrophils % % Lymphocytes % % Monocytes % % Eosinophils % % Basophils % % Neutrophils # (1.3-7.7) k/uL Lymphocytes # (1.0-4.8) k/uL Monocytes # (0-1.0) k/uL Eosinophils # (0-0.7) k/uL Basophils # (0-0.2) k/uL Sodium (137-145) mmol/L Potassium (3.5-5.1) mmol/L Chloride (98-107) mmol/L Carbon Dioxide (22-30) mmol/L Anion Gap mmol/L BUN (9-20) mg/dL Creatinine (0.66-1.25) mg/dL Est GFR (CKD-EPI)AfAm (>60 ml/min/1.73 sqM) Est GFR (CKD-EPI)NonAf (>60 ml/min/1.73 sqM) Glucose (74-99) mg/dL Lactic Ac Sepsis Rflx Y Plasma Lactic Acid Hugo 2.2 H* (0.7-2.0) mmol/L Calcium (8.4-10.2) mg/dL Total Bilirubin (0.2-1.3) mg/dL AST (17-59) U/L ALT (4-49) U/L Alkaline Phosphatase (38-126) U/L Troponin I (0.000-0.034) ng/mL NT-Pro-B Natriuret Pep 320 pg/mL Total Protein (6.3-8.2) g/dL Albumin (3.5-5.0) g/dL Amylase (30-110) U/L Lipase (23-300) U/L Urine Color Urine Appearance (Clear) Urine pH (5.0-8.0) Ur Specific [place] (1.001-1.035) Urine Protein (Negative) Urine Glucose (UA) (Negative) Urine Ketones (Negative) Urine Blood (Negative) Urine Nitrite (Negative) Urine Bilirubin (Negative) Urine Urobilinogen (<2.0) mg/dL Ur Leukocyte Esterase (Negative) 08/13/20 Range/Units 15:48 WBC (3.8-10.6) k/uL RBC (4.30-5.90) m/uL Hgb (13.0-17.5) gm/dL Hct (39.0-53.0) % MCV (80.0-100.0) fL MCH (25.0-35.0) pg MCHC (31.0-37.0) g/dL RDW (11.5-15.5) % Plt Count (150-450) k/uL MPV Neutrophils % % Lymphocytes % % Monocytes % % Eosinophils % % Basophils % % Neutrophils # (1.3-7.7) k/uL Lymphocytes # (1.0-4.8) k/uL Monocytes # (0-1.0) k/uL Eosinophils # (0-0.7) k/uL Basophils # (0-0.2) k/uL Sodium (137-145) mmol/L Potassium (3.5-5.1) mmol/L Chloride (98-107) mmol/L Carbon Dioxide (22-30) mmol/L Anion Gap mmol/L BUN (9-20) mg/dL Creatinine (0.66-1.25) mg/dL Est GFR (CKD-EPI)AfAm (>60 ml/min/1.73 sqM) Est GFR (CKD-EPI)NonAf (>60 ml/min/1.73 sqM) Glucose (74-99) mg/dL Lactic Ac Sepsis Rflx Plasma Lactic Acid Hugo (0.7-2.0) mmol/L Calcium (8.4-10.2) mg/dL Total Bilirubin (0.2-1.3) mg/dL AST (17-59) U/L ALT (4-49) U/L Alkaline Phosphatase (38-126) U/L Troponin I <0.012 (0.000-0.034) ng/mL NT-Pro-B Natriuret Pep pg/mL Total Protein (6.3-8.2) g/dL Albumin (3.5-5.0) g/dL Amylase (30-110) U/L Lipase (23-300) U/L Urine Color Urine Appearance (Clear) Urine pH (5.0-8.0) Ur Specific [place] (1.001-1.035) Urine Protein (Negative) Urine Glucose (UA) (Negative) Urine Ketones (Negative) Urine Blood (Negative) Urine Nitrite (Negative) Urine Bilirubin (Negative) Urine Urobilinogen (<2.0) mg/dL Ur Leukocyte Esterase (Negative) Disposition Clinical Impression: COPD exacerbation, Shortness of breath, Pulmonary edema, Abdominal pain Disposition: ADMITTED IP TO THIS HOSP Is patient prescribed a controlled substance at d/c from ED?: No Referrals: Bia Anderson MD [Primary Care Provider] - 1-2 days Time of Disposition: 17:30
--- NOTE | 2020-08-13 15:23 | XR ---
EXAMINATION TYPE: XR chest 2V DATE OF EXAM: 08/13/2020 COMPARISON: 04/06/2020 HISTORY: Short of breath TECHNIQUE: Frontal and lateral views of the chest are obtained. FINDINGS: There is elevation of the left hemidiaphragm. Biapical opacities appear similar to the prior examinat ion. Bilateral perihilar prominence appears slightly worsened prior examination, possibly pulmonary e shahla. Cardiac silhouette is enlarged. IMPRESSION: There is elevation of the left hemidiaphragm. Biapical opacities appear similar to the prior examinat ion. Bilateral perihilar prominence appears slightly worsened prior examination, possibly pulmonary e shahla.
[2020-08-13 15:28] LABS: Basophils # (A) 0.1 k/uL (0-0.2); Basophils % (A) 1 %; Eosinophils # (A) 0.3 k/uL (0-0.7); Eosinophils % (A) 4 %; HCT 36.3 % (39.0-53.0); HGB 12.5 gm/dL (13.0-17.5); Lymphocytes % (A) 14 %; MCH 33.2 pg (25.0-35.0); MCHC 34.3 g/dL (31.0-37.0); MCV 97.1 fL (80.0-100.0); Mean Platelet Volume 6.8; Monocytes # (A) 0.6 k/uL (0-1.0); Monocytes % (A) 8 %; Neutrophils # (A) 5.2 k/uL (1.3-7.7); Neutrophils % (A) 71 %; Platelet Count 310 k/uL (150-450); RBC 3.75 m/uL (4.30-5.90); RDW 13.1 % (11.5-15.5); WBC 7.4 k/uL (3.8-10.6)
[2020-08-13 15:39] LABS: ALT 19 U/L (4-49); AST 28 U/L (17-59); African American GFR (CKD) >90 (>60 ml/min/1.73 sqM); Albumin 3.6 g/dL (3.5-5.0); Alkaline Phosphatase 126 U/L (38-126); Anion Gap 7 mmol/L; Blood Urea Nitrogen 8 mg/dL (9-20); Calcium 8.8 mg/dL (8.4-10.2); Carbon Dioxide 33 mmol/L (22-30); Chloride 93 mmol/L (98-107); Glucose 108 mg/dL (74-99); Lipase 57 U/L (23-300); Non-African American GFR(CKD) >90 (>60 ml/min/1.73 sqM); Potassium 3.8 mmol/L (3.5-5.1); Sodium 133 mmol/L (137-145); Total Bilirubin 0.4 mg/dL (0.2-1.3); Total Protein 6.3 g/dL (6.3-8.2)
[2020-08-13 15:42] LABS: Amylase 350 U/L (30-110)
[2020-08-13 16:11] LABS: Appearance,Urine Clear (Clear); Bilirubin,Urine Negative (Negative); Blood,Urine Negative (Negative); Color,Urine Yellow; Glucose,Urine (UA) Negative (Negative); Ketones,Urine Negative (Negative); Leukocyte Esterase,Urine Negative (Negative); Nitrite,Urine Negative (Negative); Protein,Urine Negative (Negative); Specific Gravity,Urine 1.008 (1.001-1.035); Urobilinogen,Urine <2.0 mg/dL (<2.0)
--- NOTE | 2020-08-13 16:44 | CT ---
EXAMINATION TYPE: CT abdomen pelvis w con DATE OF EXAM: 08/13/2020 COMPARISON: 09/08/2019 HISTORY: Left lower quadrant pain, nausea, and diarrhea. CT DLP: 1335.7 mGycm Automated exposure control for dose reduction was used. CONTRAST: Performed with IV Contrast, patient injected with 100 mL of Isovue 300. Lung bases are clear of infiltrate. There is no pleural effusion. Heart size is normal. There is no p ericardial effusion. Liver spleen stomach appear intact. The bile ducts are not dilated. There is no evidence of pancreati c mass. There is no adrenal mass. Kidneys show satisfactory contrast opacification. There is no hydronephrosi s. The ureters are not dilated. The delayed images show normal renal excretion. There is no retroperi toneal adenopathy. Bladder distends smoothly. There is no inguinal hernia. There is no free fluid in the pelvis. Abdominal aorta is atheromatous. The lumbar vertebra show fairly normal alignment. There is a mild L4-5 first-degree spondylolisthesis of 6 mm. There is no spondylolysis. There is no compression fracture. Abdominal aorta is atheromatous. There is no mesenteric edema. There is no ascites or free air. There is no sign of a bowel obstruction. Appendix is not seen. There is no sign of thickened appendix. IMPRESSION: No acute abnormality of the abdomen pelvis. There is clearing of the anterior abdominal wall muscular hematoma compared to old exam.
[2020-08-13] MEDS ORDERED: FUROSEMIDE 10 MG/ML 4 ML VIAL IV STA (17:38)
[2020-08-13] MEDS ORDERED: IBUPROFEN 800 MG TAB PO PRN (17:38)
[2020-08-13] MEDS: methylPREDNISolone SOD SUCCI 125 MG/2 ML VIAL IV SCH (18:02)
[2020-08-13] MEDS: IPRATROPIUM-ALBUTEROL 3 ML NEB INHALATION SCH (19:40)
[2020-08-13] MEDS ORDERED: IPRATROPIUM-ALBUTEROL 3 ML NEB INHALATION PRN (21:48)
[2020-08-13] MEDS ORDERED: ALPRAZolam 0.25 MG TAB PO PRN (21:49)
[2020-08-13] MEDS: FUROSEMIDE 10 MG/ML 4 ML VIAL IV SCH (22:19)
[2020-08-13] MEDS: HEPARIN SODIUM,PORCINE/PF 5,000 UNIT/0.5 ML SYRINGE SQ SCH (22:20)
[2020-08-13 22:28] LABS: Glucose,Whole Blood 253 mg/dL (75-99)
--- NOTE | 2020-08-13 23:31 | HP ---
HISTORY AND PHYSICAL DATE OF SERVICE: 08/13/2020 CHIEF COMPLAINT: Shortness of breath, abdominal pain as well as knee pain. HISTORY OF PRESENT ILLNESS: This 65-year-old gentleman with a past medical history of multiple medical problems including CHF, COPD, glaucoma, history of DJD being followed by Dr. Bia Anderson and Radha Lau in the outpatient setting was recently admitted with features of rectus hematoma and as well as new-onset atrial fibrillation which was treated symptomatically. Patient improved significantly. Patient went home and currently patient complains of increasing shortness of breath and inability to breathe and abdominal pain as well as knee pain. The patient came to [facility] and was admitted for further evaluation and treatment. The patient has gained some weight also. There is no history of fever, rigors. No history headache, loss of consciousness, seizures at this time. PAST MEDICAL HISTORY: History of COPD, history of CHF, glaucoma, history of DJD. HOME MEDICATIONS: Multivitamins, vitamin D3, Tylenol No.3, vitamin C and E, Aldactone, Xalatan, Motrin. Neurontin, Lasix, Ventolin. ALLERGIES: ASPIRIN. FAMILY HISTORY: No history of heart disease or strokes in the family. SOCIAL HISTORY: Previous history of smoking. Occasional alcohol intake. REVIEW OF SYSTEMS: ENT No history of diminished hearing or vision. CARDIOVASCULAR As mentioned earlier. RESPIRATORY As mentioned earlier. GI No nausea, vomiting, or diarrhea. No dysuria or hematuria. NERVOUS No numbness or weakness. ALLERGY/IMMUNOLOGY No asthma or hayfever. MUSCULOSKELETAL As mentioned earlier. HEMATOLOGY/ONCOLOGY Negative. ENDOCRINE No history of diabetes or hypothyroidism. CONSTITUTIONAL As mentioned earlier. DERMATOLOGY Negative. RHEUMATOLOGY Negative, PSYCHIATRY As mentioned earlier. PHYSICAL EXAMINATION: Alert and oriented x3. Pulse is 90, blood pressure 130/67, respiration 20, temperature 98.2, pulse ox 98% on 2 L. HEENT: Conjunctivae normal. Oral mucosa moist. NECK: No jugular venous distention. No lymph node enlargement. CARDIOVASCULAR: S1, S2, muffled. No S3, no S4, RESPIRATORY: Diminished breath sounds at the bases. Extreme wheezing and expiratory prolongation also present in breath sounds. A few crackles especially in the bases of the lungs. ABDOMEN: Soft, nontender. No mass palpable. LEGS: Bilateral leg edema present. Left knee tenderness also present. NERVOUS SYSTEM: Higher functions mentioned earlier. Moves all four limbs. No focal motor or sensory deficits. LYMPHATICS: No lymph node in neck or axilla. SKIN: No rash. JOINTS: No active deforming arthropathy LABS: WBC 7, hemoglobin 12.5, sodium 133. Other labs are noted. ASSESSMENT: 1. Shortness of breath, possibly multifactorial, COPD acute exacerbation with acute purulent tracheobronchitis as well as congestive heart failure acute exacerbation with acute on chronic systolic dysfunction, ejection fraction 40-45%. 2. History of paroxysmal atrial fibrillation. 3. History of COPD. 4. History of glaucoma. 5. History of degenerative joint disease. 6. History of Herring's esophagus. 7. Hyponatremia, chronic. 8. Anemia, normocytic anemia of chronic disease. 9. Elevated plasma lactic acid. 10.Elevated amylase with normal lipase. 11.COVID-19 negative. RECOMMENDATIONS: In this 65-year-old gentleman who presented with multiple complex medical issues, we will monitor the patient closely, continue the current management and symptomatic treatment. Otherwise, at this time I recommend IV diuretics and also recommend IV steroids, optimize the bronchodilator treatment. Consult Dr. Mitchell for continued followup. Resume the home medications. The prognosis is extremely guarded because of multiple complex medical issues. I would also obtain a serum procalcitonin and if it is high we will initiate empiric antibiotics. Also, acute purulent tracheobronchitis is a possibility. Plasma lactic acid also elevated. See orders for further details. Further recommendations to follow. MMODL / IJN: [id number] /
[2020-08-13 23:34] LABS: ALT 24 U/L (4-49); AST 31 U/L (17-59); African American GFR (CKD) >90 (>60 ml/min/1.73 sqM); Albumin 4.1 g/dL (3.5-5.0); Albumin/Globulin Ratio 1.4; Alkaline Phosphatase 136 U/L (38-126); Anion Gap 12 mmol/L; Blood Urea Nitrogen 9 mg/dL (9-20); Calcium 9.1 mg/dL (8.4-10.2); Carbon Dioxide 33 mmol/L (22-30); Chloride 90 mmol/L (98-107); Globulin 2.9 g/dL; Glucose 193 mg/dL (74-99); Non-African American GFR(CKD) >90 (>60 ml/min/1.73 sqM); Potassium 3.3 mmol/L (3.5-5.1); Sodium 135 mmol/L (137-145); Total Bilirubin 0.4 mg/dL (0.2-1.3)
[2020-08-14] MEDS: VIT A,C & E-LUTEIN-MINERALS 1 EACH TAB PO SCH ×3 (00:13→22:06)
[2020-08-14] MEDS: INSULIN ASPART (NovoLOG) 100 UNIT/ML VIAL SQ SCH ×4 (00:13→22:07)
[2020-08-14] MEDS: LATANOPROST 0.005% OPHTH DROPS 2.5 ML BTL LEFT EYE SCH ×2 (00:13→22:06)
[2020-08-14] MEDS: methylPREDNISolone SOD SUCCI 125 MG/2 ML VIAL IV SCH ×4 (00:19→17:49)
[2020-08-14] MEDS: IPRATROPIUM-ALBUTEROL 3 ML NEB INHALATION SCH ×4 (07:33→19:54)
[2020-08-14] MEDS: FORMOTEROL FUMARATE 20 MCG/2 ML NEBU INHALATION SCH ×2 (07:33→19:54)
[2020-08-14] MEDS: BUDESONIDE 1 MG/2 ML NEBU INHALATION SCH ×2 (07:33→19:54)
[2020-08-14 07:39] LABS: Glucose,Whole Blood 167 mg/dL (75-99)
[2020-08-14] MEDS: HEPARIN SODIUM,PORCINE/PF 5,000 UNIT/0.5 ML SYRINGE SQ SCH ×2 (08:41→22:07)
[2020-08-14] MEDS: MULTIVITAMINS, THERA 1 EACH TAB PO SCH (08:41)
[2020-08-14] MEDS: SPIRONOLACTONE 25 MG TAB PO SCH (08:41)
[2020-08-14] MEDS: FUROSEMIDE 10 MG/ML 4 ML VIAL IV SCH ×2 (08:41→22:07)
[2020-08-14] MEDS: PANTOPRAZOLE 40 MG TABLET PO SCH (08:42)
[2020-08-14] MEDS: GABAPENTIN 100 MG CAP PO SCH (08:42)
[2020-08-14] MEDS: CHOLECALCIFEROL 25 MCG (1000 IU) TABLET PO SCH (08:42)
[2020-08-14 09:28] LABS: Basophils # (A) 0 X 10*3/uL (0.00-0.10); Basophils % (A) 0 %; Eosinophils # (A) 0 X 10*3/uL (0.04-0.35); Eosinophils % (A) 0 %; HCT 37.2 % (39.6-50.0); HGB 12.2 g/dL (13.0-17.0); Lymphocytes # (A) 0.57 X 10*3/uL (0.90-5.00); Lymphocytes % (A) 8.7 %; MCH 32.4 pg (27.0-32.0); MCHC 32.8 g/dL (32.0-37.0); MCV 98.7 fL (80.0-97.0); Mean Platelet Volume 9.2 fL (9.5-12.2); Monocytes # (A) 0.07 X 10*3/uL (0.20-1.00); Monocytes % (A) 1.1 %; Neutrophils # (A) 5.91 X 10*3/uL (1.80-7.70); Neutrophils % (A) 89.7 %; Platelet Count 311 X 10*3/uL (140-440); RBC 3.77 X 10*6/uL (4.40-5.60); RDW 13.2 % (11.5-14.5); WBC 6.58 X 10*3/uL (4.50-10.00)
[2020-08-14 11:53] LABS: Glucose,Whole Blood 204 mg/dL (75-99)
[2020-08-14] MEDS ORDERED: Potassium Replacement Protocol 1 EACH MISC MISCELLANE PRN (15:07)
[2020-08-14] MEDS ORDERED: Magnesium Replacement Protocol 1 EACH MISC MISCELLANE PRN (15:07)
--- NOTE | 2020-08-14 15:47 | PN ---
PROGRESS NOTE DATE OF SERVICE: 08/14/2020 This 65-year-old gentleman who was admitted with shortness of breath, possibly multifactorial including COPD acute exacerbation is being closely monitored. On medications and IV diuretics, patient is feeling slightly better. Cardiology and Pulmonology evaluation in progress at this time. PAST MEDICAL HISTORY: Reviewed. REVIEW OF SYSTEMS: CARDIOVASCULAR No angina or palpitations. RESPIRATORY As mentioned earlier. GI No nausea, vomiting, or diarrhea. No dysuria or hematuria. NERVOUS No numbness or weakness. CURRENT MEDICATIONS: Reviewed include Tylenol, DuoNeb, Xanax, Pulmicort, vitamin D3, Lasix. Doses reviewed. PHYSICAL EXAMINATION: Patient is alert, oriented x3. Pulse is 94. The blood pressure is 130/72, respiration 18, temperature 98 degrees, pulse ox 97% on room air. HEENT: Conjunctivae normal. Oral mucosa moist. NECK: No jugular venous distention. No lymph node enlargement. CARDIOVASCULAR: S1, S2, muffled. No S3, no S4, RESPIRATORY: Diminished breath sounds at the bases. A few scattered rhonchi and crackles. ABDOMEN: Soft, nontender. LEGS: No edema, no swelling. NERVOUS SYSTEM: No focal deficits. LAB: WBC 6.5, hemoglobin 12.2. Other labs are noted. Creatinine is not available. Lactic acid noted. ASSESSMENT: 1. Shortness of breath, possibly multifactorial with COPD acute exacerbation with acute purulent tracheobronchitis as well as congestive heart failure acute exacerbation with acute on chronic systolic dysfunction, ejection fraction 40-45%. 2. History of paroxysmal atrial fibrillation. 3. History of COPD. 4. History of glaucoma. 5. History of DJD. 6. History of Herring's esophagus. 7. Hyponatremia, chronic. 8. Anemia, normocytic anemia of chronic disease. 9. Elevated plasma lactic acid. 10.Elevated amylase, normal lipase. 11.COVID-19 negative. 12.FULL CODE. RECOMMENDATIONS: In this 65-year-old gentleman who presented with multiple complex medical issues, we will monitor the patient closely, continue the current management and symptomatic treatment. We will continue with IV diuretics. Monitor creatinine closely. Continue to monitor blood sugars, IV steroids, empiric antibiotics, bronchodilators. Continue to follow with Pulmonary and Cardiology. Guarded prognosis. Further recommendations to follow. MMODL / IJN: [id number] /
[2020-08-14 16:08] LABS: Lipase 46 U/L (23-300)
[2020-08-14 16:11] LABS: Amylase 455 U/L (30-110)
[2020-08-14 17:24] LABS: Glucose,Whole Blood 191 mg/dL (75-99)
[2020-08-14 20:36] LABS: Glucose,Whole Blood 214 mg/dL (75-99)
[2020-08-15] MEDS: methylPREDNISolone SOD SUCCI 125 MG/2 ML VIAL IV SCH ×3 (02:55→12:26)
--- NOTE | 2020-08-15 06:48 | XR ---
EXAMINATION TYPE: XR chest 1V portable DATE OF EXAM: 08/15/2020 CLINICAL HISTORY: Difficulty breathing and CHF progress study. TECHNIQUE: Single AP portable upright view of the chest is obtained. COMPARISON: Chest x-ray from 2 days earlier and older studies FINDINGS: There is chronic parenchymal change with patchy left basilar opacity. Bilateral perihilar prominence redemonstrated. Degenerative change bilateral acromioclavicular joints. Cardiac silhouett e is stable and within normal limits. IMPRESSION: Chronic changes with patchy left basilar acute atelectasis and/or infiltrate.
[2020-08-15] MEDS: FORMOTEROL FUMARATE 20 MCG/2 ML NEBU INHALATION SCH ×2 (07:10→20:30)
[2020-08-15] MEDS: IPRATROPIUM-ALBUTEROL 3 ML NEB INHALATION SCH ×4 (07:10→20:30)
[2020-08-15] MEDS: BUDESONIDE 1 MG/2 ML NEBU INHALATION SCH ×2 (07:10→20:30)
[2020-08-15 07:34] LABS: Glucose,Whole Blood 147 mg/dL (75-99)
[2020-08-15] MEDS: VIT A,C & E-LUTEIN-MINERALS 1 EACH TAB PO SCH ×2 (08:49→20:20)
[2020-08-15] MEDS: FUROSEMIDE 10 MG/ML 4 ML VIAL IV SCH ×2 (08:49→20:20)
[2020-08-15] MEDS: PANTOPRAZOLE 40 MG TABLET PO SCH (08:49)
[2020-08-15] MEDS: CHOLECALCIFEROL 25 MCG (1000 IU) TABLET PO SCH (08:49)
[2020-08-15] MEDS: INSULIN ASPART (NovoLOG) 100 UNIT/ML VIAL SQ SCH ×4 (08:49→21:19)
[2020-08-15] MEDS: SPIRONOLACTONE 25 MG TAB PO SCH (08:50)
[2020-08-15] MEDS: MULTIVITAMINS, THERA 1 EACH TAB PO SCH (08:50)
[2020-08-15] MEDS: HEPARIN SODIUM,PORCINE/PF 5,000 UNIT/0.5 ML SYRINGE SQ SCH ×2 (08:50→20:20)
[2020-08-15] MEDS: GABAPENTIN 100 MG CAP PO SCH (08:50)
[2020-08-15 09:15] LABS: Basophils # (A) 0.01 X 10*3/uL (0.00-0.10); Basophils % (A) 0.1 %; Eosinophils # (A) 0 X 10*3/uL (0.04-0.35); Eosinophils % (A) 0 %; HCT 35.8 % (39.6-50.0); HGB 11.9 g/dL (13.0-17.0); Lymphocytes # (A) 0.66 X 10*3/uL (0.90-5.00); Lymphocytes % (A) 4.4 %; MCH 32.8 pg (27.0-32.0); MCHC 33.2 g/dL (32.0-37.0); MCV 98.6 fL (80.0-97.0); Mean Platelet Volume 9.5 fL (9.5-12.2); Monocytes % (A) 4.7 %; Neutrophils # (A) 13.44 X 10*3/uL (1.80-7.70); Neutrophils % (A) 90.3 %; Platelet Count 331 X 10*3/uL (140-440); RBC 3.63 X 10*6/uL (4.40-5.60); RDW 13.2 % (11.5-14.5); WBC 14.89 X 10*3/uL (4.50-10.00)
[2020-08-15 09:48] LABS: African American GFR (CKD) 102.1 (60.0-200.0); Anion Gap 8.8 mmol/L (4.00-12.00); BUN/Creat Ratio 22.22 Ratio (12.00-20.00); Carbon Dioxide 30.2 mmol/L (21.6-31.8); Non-African American GFR(CKD) 88.1 (60.0-200.0); Potassium 3.4 mmol/L (3.5-5.5)
--- NOTE | 2020-08-15 10:58 | P.CNPUL ---
History of Present Illness Consult date: 08/15/20 Reason for consult: dyspnea History of present illness: 65-year-old male patient presented to [facility] department with multiple complaints. The patient's main complaint was abdominal pain that started in his left lower quadrant at around 8:00 in the admission.. No vomiting. No emesis. No diarrhea. He was also having some increased dyspnea, increased cough and chest tightness and wheezing which is typical for his underlying COPD exacerbation. For that, the patient came into the emergency department and was hospitalized. The patient otherwise was afebrile hemodynamically stable. His EKG showed a normal sinus rhythm. His vitals were stable. His CMP and CBC were unremarkable. His lactic acid level was at 2.2. Amylase and lipase were nonspecific. CAT scan of the abdomen and pelvis was done and it showed no acute abnormalities. He was hospitalized for an acute COPD exacerbation. He was given breathing treatments. He was given 2 DuoNeb treatments in the emergency department and he was started also on IV Solu-Medrol. His chest x-ray showed some pulmonary vascular congestion. His proBNP level was 320. Review of Systems Constitutional: Reports fatigue Eyes: denies as per HPI, denies blurred vision, denies bulging eye, denies decreased vision, denies diplopia, denies discharge, denies dry eye, denies irritation, denies itching, denies pain, denies photophobia, denies loss of peripheral vision, denies loss of vision, denies tunnel vision/blind spots Ears: deny: decreased hearing, ear discharge, earache, tinnitus Ears, nose, mouth and throat: Reports as per HPI Breasts: absent: as per HPI, gynecomastia Cardiovascular: Reports decreased exercise tolerance, Reports dyspnea on exertion Respiratory: Reports cough, Reports cough with sputum, Reports dyspnea, Reports wheezing Gastrointestinal: Reports abdominal pain Genitourinary: Reports as per HPI Musculoskeletal: Reports as per HPI Musculoskeletal: absent: ankle pain, ankle stiffness, ankle swelling Integumentary: Reports as per HPI Neurological: Reports as per HPI Psychiatric: Reports as per HPI Endocrine: Reports as per HPI Hematologic/Lymphatic: Reports as per HPI Allergic/Immunologic: Reports as per HPI Past Medical History Past Medical History: Heart Failure, COPD Additional Past Medical History / Comment(s): Past medical history is positive for rectus sheath hematoma, history of atrial fibrillation and was noted during an earlier hospitalization and it has recovered, COPD, glucoma, Herring's esophagus,CHF with mild systolic heart failure and ejection fraction of 40- 45%Associated with moderate global hypokinesis. The patient also has an aortic root of 4.0 cm. History of Any Multi-Drug Resistant Organisms: None Reported Past Surgical History: Joint Replacement Additional Past Surgical History / Comment(s): LT SHOULDER sx in 2009 Past Anesthesia/Blood Transfusion Reactions: No Reported Reaction Past Psychological History: No Psychological Hx Reported Smoking Status: Former smoker Past Alcohol Use History: None Reported Additional Past Alcohol Use History / Comment(s): patient says he smoked for 45 years but quit 3 months ago. Drinks alcohol occasionally. Says a six pack lasts him about a month. Lives with daughter and her significant other. Past Drug Use History: None Reported - Past Family History Daughter(s) Family Medical History: No Reported History Medications and Allergies Home Medications Medication Instructions Recorded Confirmed Type Latanoprost [Xalatan 0.005%] 1 drop LEFT EYE HS 10/31/17 08/13/20 History Albuterol Inhaler [Ventolin Hfa 1 puff INHALATION RT-Q6H PRN 08/22/19 08/13/20 History Inhaler] Vit C/E/Zn/Coppr/Lutein/Zeaxan 1 tab PO BID 08/22/19 08/13/20 History [Preservision Areds 2 Softgel] Furosemide [Lasix] 40 mg PO DAILY 30 Days #30 tab 09/12/19 08/13/20 Rx Spironolactone [Aldactone] 25 mg PO DAILY 30 Days #30 tab 09/12/19 08/13/20 Rx Acetaminophen-Codeine 300-30mg 2 tab PO Q4H PRN 08/13/20 08/13/20 History [Tylenol w/codeine #3] Albuterol Nebulized [Ventolin 2.5 mg INHALATION RT-QID PRN 08/13/20 08/13/20 History Nebulized] Cholecalciferol (Vitamin D3) 250 mcg PO DAILY 08/13/20 08/13/20 History [Vitamin D3 (5000 Iu)] Gabapentin [Neurontin] 100 mg PO DAILY 08/13/20 08/13/20 History Ibuprofen [Motrin] 800 mg PO Q8H PRN 08/13/20 08/13/20 History Multivitamins, Thera [Multivitamin 1 tab PO DAILY 08/13/20 08/13/20 History (formulary)] Allergies Allergy/AdvReac Type Severity Reaction Status Date / Time aspirin Allergy Rash/Hives Verified 08/13/20 16:07 Physical Exam Vitals: Vital Signs Temp Pulse Pulse Resp BP Pulse Ox 08/15/20 07:50 94 16 08/15/20 07:35 88 08/15/20 07:24 80 08/15/20 07:10 80 08/15/20 07:00 97.8 F 94 16 132/78 95 08/15/20 02:00 98.0 F 89 16 108/63 95 08/14/20 20:11 96 20 08/14/20 20:00 98.9 F 106 H 18 126/69 92 L 08/14/20 19:54 67 19 97 08/14/20 15:35 77 08/14/20 15:26 75 08/14/20 15:00 98.1 F 75 16 113/66 96 08/14/20 13:21 94 18 08/14/20 11:08 74 08/14/20 10:59 72 Intake and Output 08/14/20 08/15/20 08/15/20 22:59 06:59 14:59 Other: Voiding Method Toilet # Voids 1 3 3 GENERAL EXAM: Alert, very pleasant 64-year-old white male, with room air pulse ox of 94% comfortable in no apparent distress. HEAD: Normocephalic/atraumatic. EYES: Normal reaction of pupils, equal size. Conjunctiva pink, sclera white. NOSE: Clear with pink turbinates. THROAT: No erythema or exudates. NECK: No masses, no JVD, no thyroid enlargement, no adenopathy. CHEST: No chest wall deformity. Symmetrical expansion. LUNGS: Equal air entry with diffuse rhonchi and wheezing on forced exhale man euver CVS: Irregular rate and rhythm, normal S1 and S2, no gallops, no murmurs, no rubs ABDOMEN: No hepatosplenomegaly, normal bowel sounds, no guarding or rigidity. Soft, and the irregularities and bruising involving the mid abdomen, patient has a rectus sheath hematoma, tender, right side of the abdomen, and significant bruising of the pubic area EXTREMITIES: No clubbing, 1+ lower extremity, no cyanosis, 2+ pulses and upper and lower extremities. MUSCULOSKELETAL: Muscle strength and tone normal. SPINE: No scoliosis or deformity SKIN: No rashes CENTRAL NERVOUS SYSTEM: Alert and oriented -3. No focal deficits, tone is normal in all 4 extremities. PSYCHIATRIC: Alert and oriented -3. Appropriate affect. Intact judgment and insight. Results - Laboratory Findings CBC and BMP: 08/15/20 06:45 08/15/20 06:45 Abnormal lab findings: Abnormal Labs 08/13/20 08/13/20 08/13/20 15:02 15:02 15:02 WBC RBC 3.75 L Hgb 12.5 L Hct 36.3 L MCV MCH MPV Immature Gran # Neutrophils # Lymphocytes # Monocytes # Eosinophils # Sodium 133 L Potassium Chloride 93 L Carbon Dioxide 33 H BUN 8 L BUN/Creatinine Ratio Glucose 108 H POC Glucose (mg/dL) Plasma Lactic Acid Hugo 2.2 H* Alkaline Phosphatase Amylase 350 H* 08/13/20 08/13/20 08/13/20 18:26 21:57 21:57 WBC RBC Hgb Hct MCV MCH MPV Immature Gran # Neutrophils # Lymphocytes # Monocytes # Eosinophils # Sodium 135 L Potassium 3.3 L Chloride 90 L Carbon Dioxide 33 H BUN BUN/Creatinine Ratio Glucose 193 H POC Glucose (mg/dL) Plasma Lactic Acid Hugo 2.5 H* 2.4 H* Alkaline Phosphatase 136 H Amylase 08/13/20 08/14/20 08/14/20 22:26 01:46 05:34 WBC RBC 3.77 L Hgb 12.2 L Hct 37.2 L MCV 98.7 H MCH 32.4 H MPV 9.2 L Immature Gran # Neutrophils # Lymphocytes # 0.57 L Monocytes # 0.07 L Eosinophils # 0 L Sodium Potassium Chloride Carbon Dioxide BUN BUN/Creatinine Ratio Glucose POC Glucose (mg/dL) 253 H Plasma Lactic Acid Hugo 2.4 H* Alkaline Phosphatase Amylase 08/14/20 08/14/20 08/14/20 05:34 07:31 11:47 WBC RBC Hgb Hct MCV MCH MPV Immature Gran # Neutrophils # Lymphocytes # Monocytes # Eosinophils # Sodium Potassium Chloride Carbon Dioxide BUN BUN/Creatinine Ratio Glucose POC Glucose (mg/dL) 167 H 204 H Plasma Lactic Acid Hugo Alkaline Phosphatase Amylase 455 H* 08/14/20 08/14/20 08/15/20 17:18 20:35 06:45 WBC 14.89 H RBC 3.63 L Hgb 11.9 L Hct 35.8 L MCV 98.6 H MCH 32.8 H MPV Immature Gran # 0.08 H Neutrophils # 13.44 H Lymphocytes # 0.66 L Monocytes # Eosinophils # 0 L Sodium Potassium Chloride Carbon Dioxide BUN BUN/Creatinine Ratio Glucose POC Glucose (mg/dL) 191 H 214 H Plasma Lactic Acid Hugo Alkaline Phosphatase Amylase 08/15/20 08/15/20 06:45 07:33 WBC RBC Hgb Hct MCV MCH MPV Immature Gran # Neutrophils # Lymphocytes # Monocytes # Eosinophils # Sodium 134 L Potassium 3.4 L Chloride 95 L Carbon Dioxide BUN BUN/Creatinine Ratio 22.22 H Glucose 157 H POC Glucose (mg/dL) 147 H Plasma Lactic Acid Hugo Alkaline Phosphatase Amylase - Diagnostic Findings Chest x-ray: image reviewed Assessment and Plan Plan: 1. 1 acute COPD exacerbation with secondary shortness of breath. On examination, the patient is extensively bronchospastic and wheezy. No clear indication of any congestion heart failure. Rule out tracheal bronchitis.note that the patient also tested negative for COVID-19. Has not received vaccinations. 2. history of atrial fibrillation currently in a normal sinus rhythm. 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 ProBNP level is not elevated. This is based on echocardiogram that was done in 2019. He does have 4. previous hospitalization for acute exacerbation of chronic obstructive pulmonary disease, status post bronchoscopies with BAL 2, and bronchial lavage performed on 09/01/2019 showed evidence of pseudomonas aeruginosa, and Klebsiella oxytoca, and Jamila albicans, patient was discharged home on 09/04/2019 on oral course of Levaquin 5. Glaucoma 6. Herring's esophagus 7. Previous history of tobacco use Plan We'll cover this patient with Levaquin 750 mg by mouth daily We'll obtain sputum Gram stain and culture if possible We'll put the patient on DuoNeb neb last treatment [id number] 4 times a da y We'll put the patient IV Solu Medrol 60 mg every 6 hours Resume all medications We'll continue to follow
[2020-08-15] MEDS ORDERED: IOPAMIDOL CONTRAST (ORAL USE) VIAL PO PRN (11:56)
[2020-08-15 12:02] LABS: Glucose,Whole Blood 217 mg/dL (75-99)
[2020-08-15 12:15] LABS: ALT 19 U/L (4-49); AST 27 U/L (17-59); African American GFR (CKD) >90 (>60 ml/min/1.73 sqM); Albumin 3.6 g/dL (3.5-5.0); Albumin/Globulin Ratio 1.4; Alkaline Phosphatase 107 U/L (38-126); Amylase 214 U/L (30-110); Anion Gap 9 mmol/L; Blood Urea Nitrogen 20 mg/dL (9-20); Carbon Dioxide 32 mmol/L (22-30); Chloride 92 mmol/L (98-107); Globulin 2.6 g/dL; Glucose 153 mg/dL (74-99); Non-African American GFR(CKD) >90 (>60 ml/min/1.73 sqM); Potassium 3.7 mmol/L (3.5-5.1); Sodium 133 mmol/L (137-145); Total Bilirubin 0.1 mg/dL (0.2-1.3); Total Protein 6.2 g/dL (6.3-8.2)
[2020-08-15] MEDS: LEVOFLOXACIN 750 MG TAB PO SCH (12:26)
--- NOTE | 2020-08-15 12:35 | P.CRDCN ---
History of Present Illness Consult date: 08/15/20 History of present illness: HISTORY OF PRESENT ILLNESS: This is a 65-year-old male with a past medical history significant for CHF, COPD, and former nicotine dependence. 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 He was evaluated by Dr. Mera during a hospitalization in 2019 but he states he has not followed up since he was discharged. We have been asked to see the patient in consultation for CHF. Patient examined at the bedside. Patient states he has been short of breath for the past month. He states his shortness of breath has worsened the past few days. He reports using his nebulizer at home more than normal. Patient denies having any chest pain or pressure. He denies dizziness or lightheadedness. EKG reveals sinus mechanism with a heart rate of 84 Chest xray chronic changes with patchy left basilar acute atelectasis and/or infiltrate Laboratory data: WBC 14.89. Hemoglobin 11.9. Platelet count 331. Sodium 133. Potassium 3.7. BUN 20. Creatinine 0.71. BNP 320. Lactic acid 2.1. Repeat 1.1. Troponin negative 1. Current home cardiac medications include Lasix 40 mg daily and Aldactone 25 mg daily Most recent echocardiogram obtained in August 2019 revealed ejection fraction 40-45%, mild mitral regurgitation, mild tricuspid regurgitation REVIEW OF SYSTEMS: At the time of my exam: CONSTITUTIONAL: Denies fever or chills. HEENT: Denies blurred vision, vision changes, or eye pain. Denies hemoptysis CARDIOVASCULAR: Denies chest pain. Denies orthopnea. Denies PND. Denies palpitations RESPIRATORY: Denies shortness of breath. GASTROINTESTINAL: Denies abdominal pain. Denies nausea or vomiting. HEMATOLOGIC: Denies bleeding disorders. GENITOURINARY: Denies any blood in urine. SKIN: Denies pruitis. Denies rash. PHYSICAL EXAM: VITAL SIGNS: Reviewed. GENERAL: Well-developed in no acute distress. HEENT: Head is normocephalic. Pupils are equal, round. Sclerae anicteric. Mucous membranes of the mouth are moist. Neck supple. No JVD or thyromegaly LUNGS: Respirations even and unlabored. Lungs diminished with x-ray wheezing throughout HEART: Regular rate and rhythm. S1 and S2 heard. ABDOMEN: Soft. Nondistended. Nontender. EXTREMITIES: Normal range of motion. No clubbing or cyanosis. Peripheral pulses intact. Trace bilateral lower extremity edema NEUROLOGIC: Awake and alert. Oriented x 3. ASSESSMENT: Shortness of breath Acute exacerbation of COPD Chronic systolic heart failure, ejection fraction 40% Former nicotine dependence PLAN: Resume home cardiac medications Pulmonary following Obtain 2-D echo to assess chronic structure and function May continue IV Lasix today secondary to bilateral lower extremity edema. Anticipate transition to oral dosing tomorrow Further recommendations pending patient's course Nurse practitioner note has been reviewed by physician. Signing provider agrees with the documented findings, assessment, and plan of care. Past Medical History Past Medical History: Heart Failure, COPD Additional Past Medical History / Comment(s): Past medical history is positive for rectus sheath hematoma, history of atrial fibrillation and was noted during an earlier hospitalization and it has recovered, COPD, glucoma, Herring's esophagus,CHF with mild systolic heart failure and ejection fraction of 40- 45%Associated with moderate global hypokinesis. The patient also has an aortic root of 4.0 cm. History of Any Multi-Drug Resistant Organisms: None Reported Past Surgical History: Joint Replacement Additional Past Surgical History / Comment(s): LT SHOULDER sx in 2009 Past Anesthesia/Blood Transfusion Reactions: No Reported Reaction Past Psychological History: No Psychological Hx Reported Smoking Status: Former smoker Past Alcohol Use History: None Reported Additional Past Alcohol Use History / Comment(s): patient says he smoked for 45 years but quit 3 months ago. Drinks alcohol occasionally. Says a six pack lasts him about a month. Lives with daughter and her significant other. Past Drug Use History: None Reported - Past Family History Daughter(s) Family Medical History: No Reported History Medications and Allergies Home Medications Medication Instructions Recorded Confirmed Type Latanoprost [Xalatan 0.005%] 1 drop LEFT EYE HS 10/31/17 08/13/20 History Albuterol Inhaler [Ventolin Hfa 1 puff INHALATION RT-Q6H PRN 08/22/19 08/13/20 History Inhaler] Vit C/E/Zn/Coppr/Lutein/Zeaxan 1 tab PO BID 08/22/19 08/13/20 History [Preservision Areds 2 Softgel] Furosemide [Lasix] 40 mg PO DAILY 30 Days #30 tab 09/12/19 08/13/20 Rx Spironolactone [Aldactone] 25 mg PO DAILY 30 Days #30 tab 09/12/19 08/13/20 Rx Acetaminophen-Codeine 300-30mg 2 tab PO Q4H PRN 08/13/20 08/13/20 History [Tylenol w/codeine #3] Albuterol Nebulized [Ventolin 2.5 mg INHALATION RT-QID PRN 08/13/20 08/13/20 History Nebulized] Cholecalciferol (Vitamin D3) 250 mcg PO DAILY 08/13/20 08/13/20 History [Vitamin D3 (5000 Iu)] Gabapentin [Neurontin] 100 mg PO DAILY 08/13/20 08/13/20 History Ibuprofen [Motrin] 800 mg PO Q8H PRN 08/13/20 08/13/20 History Multivitamins, Thera [Multivitamin 1 tab PO DAILY 08/13/20 08/13/20 History (formulary)] Allergies Allergy/AdvReac Type Severity Reaction Status Date / Time aspirin Allergy Rash/Hives Verified 08/13/20 16:07 Physical Exam Vitals: Vital Signs Temp Pulse Pulse Resp BP Pulse Ox 08/15/20 11:13 84 08/15/20 11:05 82 08/15/20 07:50 94 16 08/15/20 07:35 88 08/15/20 07:24 80 08/15/20 07:10 80 08/15/20 07:00 97.8 F 94 16 132/78 95 08/15/20 02:00 98.0 F 89 16 108/63 95 08/14/20 20:11 96 20 08/14/20 20:00 98.9 F 106 H 18 126/69 92 L 08/14/20 19:54 67 19 97 08/14/20 15:35 77 08/14/20 15:26 75 08/14/20 15:00 98.1 F 75 16 113/66 96 08/14/20 13:21 94 18 Intake and Output 08/14/20 08/15/20 08/15/20 22:59 06:59 14:59 Other: Voiding Method Toilet # Voids 1 3 3 Results 08/15/20 06:45 08/15/20 06:45 Cardiac Enzymes 08/15/20 Range/Units 06:45 AST 27 (17-59) U/L CBC 08/15/20 Range/Units 06:45 WBC 14.89 H (4.50-10.00) X 10*3/uL RBC 3.63 L (4.40-5.60) X 10*6/uL Hgb 11.9 L (13.0-17.0) g/dL Hct 35.8 L (39.6-50.0) % Plt Count 331 (140-440) X 10*3/uL Comprehensive Metabolic Panel 08/15/20 08/15/20 Range/Units 06:45 06:45 Sodium 134 L 133 L (135-145) mmol/L Potassium 3.4 L 3.7 (3.5-5.5) mmol/L Chloride 95 L 92 L (96-109) mmol/L Carbon Dioxide 30.2 32 H (21.6-31.8) mmol/L BUN 20.0 20 (9.0-27.0) mg/dL Creatinine 0.9 0.71 (0.6-1.5) mg/dL Glucose 157 H 153 H (70-110) mg/dL Calcium 9.0 9.0 (8.7-10.3) mg/dL AST 27 (17-59) U/L ALT 19 (4-49) U/L Alkaline Phosphatase 107 (38-126) U/L Total Protein 6.2 L (6.3-8.2) g/dL Albumin 3.6 (3.5-5.0) g/dL Current Medications Generic Name Dose Route Start Last Admin Trade Name Freq PRN Reason Stop Dose Admin Acetaminophen/Codeine Phosphate 2 each 08/13/20 17:38 Acetaminophen-Codeine 300-30mg Tab PO Q4H PRN Pain Albuterol/Ipratropium 3 ml 08/13/20 20:00 08/15/20 11:05 Ipratropium-Albuterol 3 Ml Neb INHALATION 3 ml RT-QID TREVOR Administration Albuterol/Ipratropium 3 ml 08/13/20 21:48 Ipratropium-Albuterol 3 Ml Neb INHALATION RT-QID PRN Shortness Of Breath Or Wheezing Alprazolam 0.25 mg 08/13/20 21:49 Alprazolam 0.25 Mg Tab PO TID PRN Anxiety Budesonide 1 mg 08/14/20 08:00 08/15/20 07:10 Budesonide 1 Mg/2 Ml Nebu INHALATION 1 mg RT-BID TREVOR Administration Cholecalciferol 250 mcg 08/14/20 09:00 08/15/20 08:49 Cholecalciferol 25 Mcg (1000 Iu) Tablet PO 250 mcg DAILY TREVOR Administration Formoterol Fumarate 20 mcg 08/14/20 08:00 08/15/20 07:10 Formoterol Fumarate 20 Mcg/2 Ml Nebu INHALATION 20 mcg RT-BID TREVOR Administration Furosemide 40 mg 08/13/20 22:00 08/15/20 08:49 Furosemide 10 Mg/Ml 4 Ml Vial IV 40 mg Q12HR TREVOR Administration Gabapentin 100 mg 08/14/20 09:00 08/15/20 08:50 Gabapentin 100 Mg Cap PO 100 mg DAILY TREVOR Administration Heparin Sodium (Porcine) 5,000 unit 08/13/20 22:00 08/15/20 08:50 Heparin Sodium,Porcine/Pf 5,000 Unit/0.5 Ml Syringe SQ 5,000 unit Q12HR TREVOR Administration Ibuprofen 800 mg 08/13/20 17:38 Ibuprofen 800 Mg Tab PO Q8H PRN Pain Insulin Aspart 0 unit 08/14/20 07:30 08/15/20 12:26 Insulin Aspart (Novolog) 100 Unit/Ml Vial SQ 3 unit ACHS TREVOR Administration Protocol Iopamidol 30 ml 08/15/20 11:56 Iopamidol Contrast (Oral Use) Vial PO 08/16/20 11:[address] Scan Latanoprost 1 drops 08/13/20 21:00 08/14/20 22:06 Latanoprost 0.005% Ophth Drops 2.5 Ml Btl LEFT EYE 1 drops HS TREVOR Administration Levofloxacin 750 mg 08/15/20 11:00 08/15/20 12:26 Levofloxacin 750 Mg Tab PO 750 mg DAILY TREVOR Administration Methylprednisolone Sodium Succinate 60 mg 08/13/20 18:00 08/15/20 12:26 Methylprednisolone Sod Succi 125 Mg/2 Ml Vial IV 60 mg Q6HR TREVOR Administration Miscellaneous Information 1 each 08/14/20 15:07 Magnesium Replacement Protocol 1 Each Misc MISCELLANE DAILY PRN Per Protocol Protocol Miscellaneous Information 1 each 08/14/20 15:07 Potassium Replacement Protocol 1 Each Misc MISCELLANE DAILY PRN Per Protocol Protocol Multivitamins 1 each 08/14/20 09:00 08/15/20 08:50 Multivitamins, Thera 1 Each Tab PO 1 each DAILY TREVOR Administration Multivitamins/Minerals 1 each 08/13/20 21:00 08/15/20 08:49 Vit A,C & N-Xqlhhs-Qewjhxab 1 Each Tab PO 1 each BID TREVOR Administration Pantoprazole Sodium 40 mg 08/14/20 07:30 08/15/20 08:49 Pantoprazole 40 Mg Tablet PO 40 mg AC-[id number] TREVOR Administration Spironolactone 25 mg 08/14/20 09:00 08/15/20 08:50 Spironolactone 25 Mg Tab PO 25 mg DAILY TREVOR Administration Intake and Output 08/14/20 08/15/20 08/15/20 22:59 06:59 14:59 Other: Voiding Method Toilet # Voids 1 3 3 08/15/20 06:45 08/15/20 06:45
--- NOTE | 2020-08-15 14:17 | CT ---
EXAMINATION TYPE: No acute abnormality. DATE OF EXAM: 08/15/2020 COMPARISON: 08/13/2020 HISTORY: LLQ pain, cramping CT DLP: 838.8 mGycm Automated exposure control for dose reduction was used. TECHNIQUE: Helical acquisition of images was performed from the lung bases through the pelvis. FINDINGS: LUNG BASES: No significant abnormality is appreciated. LIVER/GB: No significant abnormality is appreciated. PANCREAS: No significant abnormality is seen. SPLEEN: No significant abnormality is seen. ADRENALS: No significant abnormality is seen. KIDNEYS: No significant abnormality is seen. FREE AIR: No free air is visualized RETROPERITONEAL ADENOPATHY: None visualized REPRODUCTIVE ORGANS: No significant abnormality is seen URINARY BLADDER: No significant abnormality is seen. PELVIC ADENOPATHY: None visualized. OSSEOUS STRUCTURES: No significant abnormality is seen. BOWEL: No significant abnormality is seen. OTHER: Moderate atherosclerotic plaque. IMPRESSION: NO ACUTE ABNORMALITY.
--- NOTE | 2020-08-15 14:44 | PN ---
PROGRESS NOTE DATE OF SERVICE: 08/15/2020 INTERVAL HISTORY: This is a 65-year-old gentleman who was admitted with shortness of breath and possible COPD exacerbation, as well as acute purulent tracheobronchitis ,as well as CHF, acute exacerbation, is improving significantly. The patient also complaining of some abdominal pain and abdominal and pelvis CAT scan was also done which showed no abnormalities at this time. The patient also had multiple lab abnormalities which are being closely followed. Amylase is slightly elevated. Lipase is not available. Chest x-ray which was personally reviewed by me showed significant improvement compared to the previous one. PAST MEDICAL HISTORY: Reviewed. REVIEW OF SYSTEMS: CARDIOVASCULAR: No angina or palpitations. Otherwise as mentioned earlier. RESPIRATORY: As mentioned earlier. GI: As mentioned earlier. : No dysuria. NERVOUS SYSTEM: No numbness or weakness. CURRENT MEDICATIONS: Reviewed include Tylenol #3, DuoNeb, Xanax, Pulmicort, vitamin D3, Perforomist, Lasix, Neurontin, Motrin. PHYSICAL EXAMINATION: GENERAL: Patient is alert and oriented times three. VITAL SIGNS: Pulse 94, blood pressure 132/70, respirations 16, temperature 97.8, pulse ox 94% on room air. HEENT: Conjunctivae normal. Oral mucosa moist. NECK: No jugular venous distention. No carotid bruits. RESPIRATORY: Breath sounds diminished at the bases. No rhonchi, no crackles. HEART: S1 and S2, muffled. ABDOMEN: Soft, mild diffuse discomfort. No masses palpable. EXTREMITIES: No edema, no swelling. NERVOUS: No focal deficits. LABS: WBC 14.8, hemoglobin 11.9. ASSESSMENT: 1. Shortness of breath multifactorial with COPD exacerbation with acute purulent tracheobronchitis as well as congestive heart failure acute exacerbation with acute on chronic systolic dysfunction ejection fraction 40-45%. 2. History of paroxysmal atrial fibrillation. 3. History of COPD. 4. History of glaucoma. 5. History of degenerative joint disease. 6. Elevated amylase without any evidence of pancreatitis on the CT scan. 7. History of Herring's esophagus. 8. Hyponatremia, chronic. 9. Anemia, normocytic anemia of chronic disease. 10.Elevated plasma lactic acid. 11.COVID-19 negative. 12.FULL CODE. RECOMMENDATIONS AND DISCUSSION: I recommend to continue current management and continue symptomatic treatment. Otherwise at this time I recommend continue with bronchodilators. Will cut down the steroids to 40 mg IV q.8. Continue with Lasix. Will repeat amylase and lipase. Exact etiology of high amylase is not known at this time. I recommend follow up with Dr. Sanchez in the outpatient setting after discharge from the hospital. See orders for details. MMODL / IJN: [id number] /
[2020-08-15 17:11] LABS: Glucose,Whole Blood 207 mg/dL (75-99)
[2020-08-15] MEDS: methylPREDNISolone SOD SUCCI 40 MG/ML 1 ML VIAL IV SCH (17:59)
[2020-08-15] MEDS: LATANOPROST 0.005% OPHTH DROPS 2.5 ML BTL LEFT EYE SCH (20:20)
[2020-08-15 21:17] LABS: Glucose,Whole Blood 192 mg/dL (75-99)
[2020-08-16] MEDS: methylPREDNISolone SOD SUCCI 40 MG/ML 1 ML VIAL IV SCH ×4 (00:26→23:39)
[2020-08-16 07:03] LABS: Glucose,Whole Blood 164 mg/dL (75-99)
[2020-08-16] MEDS: BUDESONIDE 1 MG/2 ML NEBU INHALATION SCH ×2 (07:16→19:11)
[2020-08-16] MEDS: IPRATROPIUM-ALBUTEROL 3 ML NEB INHALATION SCH ×4 (07:16→19:11)
[2020-08-16] MEDS: FORMOTEROL FUMARATE 20 MCG/2 ML NEBU INHALATION SCH ×2 (07:16→19:11)
[2020-08-16] MEDS: INSULIN ASPART (NovoLOG) 100 UNIT/ML VIAL SQ SCH ×4 (07:53→20:05)
[2020-08-16] MEDS: CHOLECALCIFEROL 25 MCG (1000 IU) TABLET PO SCH (07:54)
[2020-08-16] MEDS: HEPARIN SODIUM,PORCINE/PF 5,000 UNIT/0.5 ML SYRINGE SQ SCH ×2 (07:54→19:55)
[2020-08-16] MEDS: LEVOFLOXACIN 750 MG TAB PO SCH (07:55)
[2020-08-16] MEDS: FUROSEMIDE 10 MG/ML 4 ML VIAL IV SCH ×2 (07:55→19:56)
[2020-08-16] MEDS: PANTOPRAZOLE 40 MG TABLET PO SCH (07:55)
[2020-08-16] MEDS: VIT A,C & E-LUTEIN-MINERALS 1 EACH TAB PO SCH ×2 (07:55→19:56)
[2020-08-16] MEDS: SPIRONOLACTONE 25 MG TAB PO SCH (07:55)
[2020-08-16] MEDS: MULTIVITAMINS, THERA 1 EACH TAB PO SCH (07:55)
[2020-08-16] MEDS: GABAPENTIN 100 MG CAP PO SCH (07:55)
[2020-08-16 10:05] LABS: African American GFR (CKD) 102.1 (60.0-200.0); Anion Gap 11.5 mmol/L (4.00-12.00); BUN/Creat Ratio 25.56 Ratio (12.00-20.00); Calcium 8.7 mg/dL (8.7-10.3); Carbon Dioxide 31.5 mmol/L (21.6-31.8); Non-African American GFR(CKD) 88.1 (60.0-200.0); Potassium 3.8 mmol/L (3.5-5.5)
--- NOTE | 2020-08-16 10:37 | P.PN ---
Subjective Progress Note Date: 08/16/20 HISTORY OF PRESENT ILLNESS: This is a 65-year-old male with a past medical history significant for CHF, COPD, and former nicotine dependence. 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 He was evaluated by Dr. Mera during a hospitalization in 2019 but he states he has not followed up since he was discharged. We have been asked to see the patient in consultation for CHF. Patient examined at the bedside. Patient states he has been short of breath for the past month. He states his shortness of breath has worsened the past few days. He reports using his nebulizer at home more than normal. Patient denies having any chest pain or pressure. He denies dizziness or lightheadedness. EKG reveals sinus mechanism with a heart rate of 84 Chest xray chronic changes with patchy left basilar acute atelectasis and/or infiltrate Laboratory data: WBC 14.89. Hemoglobin 11.9. Platelet count 331. Sodium 133. Potassium 3.7. BUN 20. Creatinine 0.71. BNP 320. Lactic acid 2.1. Repeat 1.1. Troponin negative 1. Current home cardiac medications include Lasix 40 mg daily and Aldactone 25 mg daily Most recent echocardiogram obtained in August 2019 revealed ejection fraction 40- 45%, mild mitral regurgitation, mild tricuspid regurgitation 08/16/2020 Patient examined this morning at the bedside. Patient reports feeling SOB overnight. He remains on IV steroids. He reports continued lower extremity edema. He remains on IV Lasix. BUN 23. Creatinine 0.9. PHYSICAL EXAM: VITAL SIGNS: Reviewed. GENERAL: Well-developed in no acute distress. HEENT: Head is normocephalic. Pupils are equal, round. Sclerae anicteric. Mucous membranes of the mouth are moist. Neck supple. No JVD or thyromegaly LUNGS: Respirations even and unlabored. Lungs diminished with scattered rhonchi and expiratory wheezing HEART: Regular rate and rhythm. S1 and S2 heard. ABDOMEN: Soft. Nondistended. Nontender. EXTREMITIES: Normal range of motion. No clubbing or cyanosis. Peripheral pulses intact. Trace bilateral lower extremity edema NEUROLOGIC: Awake and alert. Oriented x 3. ASSESSMENT: Shortness of breath Acute exacerbation of COPD Chronic systolic heart failure, ejection fraction 40% Former nicotine dependence PLAN: Continue current cardiac medications 2-D echo ordered. Await results May continue IV Lasix today secondary to bilateral lower extremity edema. Anticipate transition to oral dosing tomorrow Knee high KARIN hose Elevate extremities when in the chair or bed Further recommendations pending patient's course Nurse practitioner note has been reviewed by physician. Signing provider agrees with the documented findings, assessment, and plan of care. Objective - Vital Signs Vital signs: Vital Signs Temp 98.3 F 08/16/20 06:40 Pulse 88 08/16/20 07:46 Resp 20 08/16/20 08:00 BP 113/64 08/16/20 06:40 Pulse Ox 97 08/16/20 06:40 Intake & Output 08/15/20 08/16/20 08/16/20 18:59 06:59 18:59 Weight 98 kg 97.4 kg Other: Voiding Method Toilet Toilet # Voids 3 - Labs CBC & Chem 7: 08/15/20 06:45 08/16/20 04:57 Labs: Abnormal Lab Results - Last 24 Hours (Table) 08/15/20 08/15/20 08/15/20 Range/Units 06:45 12:01 17:11 Sodium 133 L (137-145) mmol/L Chloride 92 L (98-107) mmol/L Carbon Dioxide 32 H (22-30) mmol/L BUN/Creatinine Ratio (12.00-20.00) Ratio Glucose 153 H (74-99) mg/dL POC Glucose (mg/dL) 217 H 207 H (75-99) mg/dL Total Bilirubin 0.1 L (0.2-1.3) mg/dL Total Protein 6.2 L (6.3-8.2) g/dL Amylase 214 H (30-110) U/L 08/15/20 08/16/20 08/16/20 Range/Units 21:15 04:57 06:42 Sodium (137-145) mmol/L Chloride 92 L (98-107) mmol/L Carbon Dioxide (22-30) mmol/L BUN/Creatinine Ratio 25.56 H (12.00-20.00) Ratio Glucose 151 H (74-99) mg/dL POC Glucose (mg/dL) 192 H 164 H (75-99) mg/dL Total Bilirubin (0.2-1.3) mg/dL Total Protein (6.3-8.2) g/dL Amylase (30-110) U/L Microbiology - Last 24 Hours (Table) 08/15/20 18:10 Gram Stain - Preliminary Sputum Sputum Culture - Preliminary
[2020-08-16 12:18] LABS: Glucose,Whole Blood 145 mg/dL (75-99)
--- NOTE | 2020-08-16 12:18 | P.PN ---
Subjective Progress Note Date: 08/16/20 Principal diagnosis: Shortness of breath 65-year-old male patient presented to [facility] department with multiple complaints. The patient's main complaint was abdominal pain that started in his left lower quadrant at around 8:00 in the admission.. No vomiting. No emesis. No diar dariusz. He was also having some increased dyspnea, increased cough and chest tightness and wheezing which is typical for his underlying COPD exacerbation. For that, the patient came into the emergency department and was hospitalized. The patient otherwise was afebrile hemodynamically stable. His EKG showed a normal sinus rhythm. His vitals were stable. His CMP and CBC were unremarkable. His lactic acid level was at 2.2. Amylase and lipase were nonspecific. CAT scan of the abdomen and pelvis was done and it showed no acute abnormalities. He was hospitalized for an acute COPD exacerbation. He was given breathing treatments. He was given 2 DuoNeb treatments in the emergency department and he was started also on IV Solu-Medrol. His chest x-ray showed some pulmonary vascular congestion. His proBNP level was 320. On 08/16/2020 patient seen in follow-up on medical surgical floor. He is sitting up in the bed, he states he is feeling better, he is on room air, his pulse ox is 94-97%. He is mild swelling in his lower extremities, but overall reports improvement with his breathing. No fever or chills, he is still however very wheezy. Remains on IV Solu-Medrol 40 mg every 8 hours, Levaquin, and breathing treatments. Objective - Vital Signs Vital signs: Vital Signs Temp 98.3 F 08/16/20 06:40 Pulse 84 08/16/20 11:29 Resp 20 08/16/20 08:00 BP 113/64 08/16/20 06:40 Pulse Ox 97 08/16/20 06:40 Intake & Output 08/15/20 08/16/20 08/16/20 18:59 06:59 18:59 Weight 98 kg 97.4 kg Other: Voiding Method Toilet Toilet # Voids 3 - Exam GENERAL EXAM: Alert, very pleasant, 65-year-old white male, sitting up in bed, on room air, with pulse ox of 94-97% comfortable in no apparent distress. HEAD: Normocephalic/atraumatic. EYES: Normal reaction of pupils, equal size. Conjunctiva pink, sclera white. NOSE: Clear with pink turbinates. THROAT: No erythema or exudates. NECK: No masses, no JVD, no thyroid enlargement, no adenopathy. CHEST: No chest wall deformity. Symmetrical expansion. LUNGS: Equal air entry with diffuse wheezes CVS: Regular rate and rhythm, normal S1 and S2, no gallops, no murmurs, no rubs ABDOMEN: Soft, nontender. No hepatosplenomegaly, normal bowel sounds, no guarding or rigidity. EXTREMITIES: No clubbing, mild nonpitting edema no cyanosis, 2+ pulses and upper and lower extremities. MUSCULOSKELETAL: Muscle strength and tone normal. SPINE: No scoliosis or deformity SKIN: No rashes CENTRAL NERVOUS SYSTEM: Alert and oriented -3. No focal deficits, tone is normal in all 4 extremities. PSYCHIATRIC: Alert and oriented -3. Appropriate affect. Intact judgment and insight. - Labs CBC & Chem 7: 08/15/20 06:45 08/16/20 04:57 Labs: Abnormal Lab Results - Last 24 Hours (Table) 08/15/20 08/15/20 08/15/20 Range/Units 06:45 17:11 21:15 Sodium 133 L (137-145) mmol/L Chloride 92 L (98-107) mmol/L Carbon Dioxide 32 H (22-30) mmol/L BUN/Creatinine Ratio (12.00-20.00) Ratio Glucose 153 H (74-99) mg/dL POC Glucose (mg/dL) 207 H 192 H (75-99) mg/dL Total Bilirubin 0.1 L (0.2-1.3) mg/dL Total Protein 6.2 L (6.3-8.2) g/dL Amylase 214 H (30-110) U/L 08/16/20 08/16/20 Range/Units 04:57 06:42 Sodium (137-145) mmol/L Chloride 92 L (98-107) mmol/L Carbon Dioxide (22-30) mmol/L BUN/Creatinine Ratio 25.56 H (12.00-20.00) Ratio Glucose 151 H (74-99) mg/dL POC Glucose (mg/dL) 164 H (75-99) mg/dL Total Bilirubin (0.2-1.3) mg/dL Total Protein (6.3-8.2) g/dL Amylase (30-110) U/L Microbiology - Last 24 Hours (Table) 08/15/20 18:10 Gram Stain - Preliminary Sputum Sputum Culture - Preliminary Assessment and Plan Plan: Assessment: 1. 1 acute COPD exacerbation with secondary shortness of breath. On examination, the patient is extensively bronchospastic and wheezy. No clear indication of any congestion heart failure. Rule out tracheal bronchitis.note that the patient also tested negative for COVID-19. Has not received vaccinations. 2. history of atrial fibrillation currently in a normal sinus rhythm. 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 ProBNP level is not elevated. This is based on echocardiogram that was done in 2019. He does have 4. previous hospitalization for acute exacerbation of chronic obstructive pulmonary disease, status post bronchoscopies with BAL 2, and bronchial lavage performed on 09/01/2019 showed evidence of pseudomonas aeruginosa, and Klebsiella oxytoca, and Jamila albicans, patient was discharged home on 09/04/2019 on oral course of Levaquin 5. Glaucoma 6. Herring's esophagus 7. Previous history of tobacco use Plan: Continue current medical treatment Continue IV steroids Continue antibiotics Continue breathing treatments Still quite bronchospastic on today's exam Will recommend another 24 hours of inpatient treatment We'll reevaluate tomorrow I performed a history & physical examination of the patient and discussed their management with my nurse practitioner, Luana Arcos. I reviewed the nurse practitioner's note and agree with the documented findings and plan of care. Lung sounds are positive for diffuse wheezes throughout the lung malagon. The findings and the impression was discussed with the patient. I attest to the documentation by the nurse practitioner. Time with Patient: Less than 30
--- NOTE | 2020-08-16 12:55 | ECHOF ---
Referral Reason:LV function MEASUREMENTS -------- HEIGHT: 180.3 cm WEIGHT: 97.1 kg BP: 113/64 RVIDd: 4.1 cm (< 3.3) IVSd: 1.7 cm (0.6 - 1.1) LVIDd: 3.3 cm (3.9 - 5.3) LVPWd: 1.3 cm (0.6 - 1.1) IVSs: 1.9 cm LVIDs: 2.2 cm LVPWs: 1.5 cm MV E Kailash: 0.73 m/s MV DecT: 185 ms MV A Kailash: 0.94 m/s MV E/A Ratio: 0.77 RAP: 5.00 mmHg RVSP: 12.72 mmHg FINDINGS -------- Sinus rhythm. This was a technically difficult study with suboptimal views. The left ventricular size is normal. There is moderate concentric left ventricular hypertrophy. O verall left ventricular systolic function is normal with, an EF between 55 - 60 %. The right ventricle is mildly enlarged. The left atrium was not well visualized. The right atrium was not well visualized. 5.0mg of Lumason was utilized for enhancement of images Interatrial and interventricular septum intact. The aortic valve was not well visualized. There is no evidence of aortic regurgitation. There is no evidence of aortic stenosis. The mitral valve was not well visualized. No mitral regurgitation. The tricuspid valve was not well visualized. Mild tricuspid regurgitation present. There is no ev idence of pulmonary hypertension. The right ventricular systolic pressure, as measured by Doppler, is 12.72mmHg. The pulmonic valve was not well visualized. IVC Not well visulized. There is no pericardial effusion. CONCLUSIONS -------- 1. The left ventricular size is normal. 2. There is moderate concentric left ventricular hypertrophy. 3. Overall left ventricular systolic function is normal with, an EF between 55 - 60 %. 4. Mild tricuspid regurgitation present. STAMP REDEMPTION CLERK: Jenae King RDCS
[2020-08-16 17:23] LABS: Glucose,Whole Blood 174 mg/dL (75-99)
[2020-08-16 19:55] LABS: Glucose,Whole Blood 206 mg/dL (75-99)
[2020-08-16] MEDS: LATANOPROST 0.005% OPHTH DROPS 2.5 ML BTL LEFT EYE SCH (19:56)
[2020-08-17 07:22] LABS: Basophils % (A) 0 %; Eosinophils % (A) 0 %; HCT 38.5 % (39.0-53.0); HGB 12.9 gm/dL (13.0-17.5); Lymphocytes % (A) 10 %; MCH 33.1 pg (25.0-35.0); MCHC 33.5 g/dL (31.0-37.0); MCV 98.9 fL (80.0-100.0); Monocytes # (A) 0.4 k/uL (0-1.0); Monocytes % (A) 4 %; Neutrophils # (A) 8.2 k/uL (1.3-7.7); Neutrophils % (A) 85 %; Platelet Count 339 k/uL (150-450); RDW 12.9 % (11.5-15.5); WBC 9.6 k/uL (3.8-10.6)
[2020-08-17 07:24] LABS: Glucose,Whole Blood 139 mg/dL (75-99)
[2020-08-17] MEDS: BUDESONIDE 1 MG/2 ML NEBU INHALATION SCH ×2 (08:01→19:55)
[2020-08-17] MEDS: FORMOTEROL FUMARATE 20 MCG/2 ML NEBU INHALATION SCH ×2 (08:01→20:05)
[2020-08-17] MEDS: IPRATROPIUM-ALBUTEROL 3 ML NEB INHALATION SCH ×4 (08:01→19:55)
--- NOTE | 2020-08-17 08:37 | P.PN ---
Subjective Progress Note Date: 08/16/20 This is a 65-year-old male who was recently admitted with shortness of breath and possible COPD exacerbation along with acute purulent tracheobronchitis as well as congestive heart failure acute exacerbation and is being closely monitored. Patient continues on IV Lasix with cardiology following as well as breathing inhalational treatments and IV steroids. Pulmonary is also following closely. Patient continues to be dyspneic with exertion and is currently sitting up at the site of the bed on room air. Patient underwent CT abdomen and pelvis which was resulting in no abnormalities and lab work shows odium is 135 with a potassium of 3.8 and creatinine is within normal limits at 0.9. Blood sugars variable and will continue with current regimen. Review of systems: Constitutional: No reports of fatigue, fever, or chills Cardiovascular: No reports of chest pain or palpitations Respiratory: Reports continued shortness of breath and minimal cough with no phlegm production GI: No reports of nausea, vomiting, or diarrhea, reports abdominal discomfort which is improving : No reports of dysuria or retention Neurovascular: No reports of weakness or numbness All medications have been reviewed Objective - Vital Signs Vital signs: Vital Signs Temp 98.5 F 08/16/20 13:51 Pulse 88 08/16/20 15:54 Resp 20 08/16/20 13:51 BP 122/71 08/16/20 13:51 Pulse Ox 95 08/16/20 13:51 Intake & Output 08/15/20 08/16/20 08/16/20 18:59 06:59 18:59 Intake Total 240 Balance 240 Weight 98 kg 97.4 kg Intake: Oral 240 Other: Voiding Method Toilet Toilet # Voids 3 - Exam Gen: This is a 65-year-old male sitting at the side of the bed awake, alert and oriented 3, well-developed, well-nourished. Temp is 98.5F, pulse is 100, respirations are 20, blood pressure is 122/71, oxygen saturation is 95% on room air. HEENT: Head is atraumatic, normocephalic. Pupils equal, round. Sclerae is anicteric. NECK: Supple. No JVD. No lymphadenopathy. No thyromegaly. LUNGS: Clear to auscultation. No wheezes or rhonchi. No intercostal retractions. HEART: Regular rate and rhythm. No murmur. ABDOMEN: Soft. Bowel sounds are present. No masses. No tenderness. EXTREMITIES: No pedal edema. No calf tenderness. NEUROLOGICAL: Patient is awake, alert and oriented x3. Cranial nerves 2 through 12 are grossly intact. - Labs CBC & Chem 7: 08/17/20 05:45 08/16/20 04:57 Labs: Abnormal Lab Results - Last 24 Hours (Table) 08/15/20 08/15/20 08/16/20 Range/Units 17:11 21:15 04:57 Chloride 92 L (96-109) mmol/L BUN/Creatinine Ratio 25.56 H (12.00-20.00) Ratio Glucose 151 H (70-110) mg/dL POC Glucose (mg/dL) 207 H 192 H (75-99) mg/dL 08/16/20 08/16/20 Range/Units 06:42 12:12 Chloride (96-109) mmol/L BUN/Creatinine Ratio (12.00-20.00) Ratio Glucose (70-110) mg/dL POC Glucose (mg/dL) 164 H 145 H (75-99) mg/dL Microbiology - Last 24 Hours (Table) 08/15/20 18:10 Gram Stain - Preliminary Sputum Sputum Culture - Preliminary Assessment and Plan Assessment: Shortness of breath, multifactorial with COPD exacerbation with acute purulent tracheobronchitis as well as congestive heart failure acute exacerbation with acute on chronic systolic dysfunction ejection fraction 40-45% History of paroxysmal atrial fibrillation history of COPD history of glaucoma history of degenerative joint disease elevated amylase without any evidence of pancreatitis on the computed tomography scan history of Herring's esophagus hyponatremia, chronic Anemia, normocytic anemia of chronic disease Elevated plasma lactic acid COVID-19 negative Full code Plan: Recommend to continue with current medications and symptomatic treatment. Patient will continue on bronchodilators along with IV steroids with pulmonary following. Cardiology also following and patient is maintained on IV Lasix and will continue for another 24 hours. Patient to continue on antibiotics. Encourage the patient to increase activity as tolerated. Patient underwent 2-D echo showing moderate concentric left ventricular hypertrophy with overall LV systolic function is normal with an EF of 55-60% with some mild tricuspid regurgitation present. Will repeat a.m. labs. Due to multiple complex medical issues, prognosis is guarded.
[2020-08-17] MEDS: INSULIN ASPART (NovoLOG) 100 UNIT/ML VIAL SQ SCH ×4 (08:54→20:34)
[2020-08-17] MEDS: methylPREDNISolone SOD SUCCI 40 MG/ML 1 ML VIAL IV SCH ×2 (09:03→16:56)
[2020-08-17] MEDS: SPIRONOLACTONE 25 MG TAB PO SCH (09:04)
[2020-08-17] MEDS: LEVOFLOXACIN 750 MG TAB PO SCH (09:04)
[2020-08-17] MEDS: CHOLECALCIFEROL 25 MCG (1000 IU) TABLET PO SCH (09:04)
[2020-08-17] MEDS: GABAPENTIN 100 MG CAP PO SCH (09:04)
[2020-08-17] MEDS: PANTOPRAZOLE 40 MG TABLET PO SCH (09:04)
[2020-08-17] MEDS: MULTIVITAMINS, THERA 1 EACH TAB PO SCH (09:05)
[2020-08-17] MEDS: FUROSEMIDE 40 MG TAB PO SCH (09:05)
[2020-08-17] MEDS: HEPARIN SODIUM,PORCINE/PF 5,000 UNIT/0.5 ML SYRINGE SQ SCH ×2 (09:05→20:33)
[2020-08-17] MEDS: VIT A,C & E-LUTEIN-MINERALS 1 EACH TAB PO SCH ×2 (09:05→20:34)
--- NOTE | 2020-08-17 10:43 | P.PN ---
Subjective Progress Note Date: 08/17/20 HISTORY OF PRESENT ILLNESS: This is a 65-year-old male with a past medical history significant for CHF, COPD, and former nicotine dependence. Patient states he does not follow with a information security manager on an outpatient basis. He was evaluated by Dr. Mera during a hospitalization in 2019 but he states he has not followed up since he was discharged. We have been asked to see the patient in consultation for CHF. Patient examined at the bedside. Patient states he has been short of breath for the past month. He states his shortness of breath has worsened the past few days. He reports using his nebulizer at home more than normal. Patient denies having any chest pain or pressure. He denies dizziness or lightheadedness. EKG reveals sinus mechanism with a heart rate of 84 Chest xray chronic changes with patchy left basilar acute atelectasis and/or infiltrate Laboratory data: WBC 14.89. Hemoglobin 11.9. Platelet count 331. Sodium 133. Potassium 3.7. BUN 20. Creatinine 0.71. BNP 320. Lactic acid 2.1. Repeat 1.1. Troponin negative 1. Current home cardiac medications include Lasix 40 mg daily and Aldactone 25 mg daily Most recent echocardiogram obtained in August 2019 revealed ejection fraction 40- 45%, mild mitral regurgitation, mild tricuspid regurgitation 08/16/2020 Patient examined this morning at the bedside. Patient reports feeling SOB overnight. He remains on IV steroids. He reports continued lower extremity edema. He remains on IV Lasix. BUN 23. Creatinine 0.9. 08/17/2020 Patient examined this morning at the bedside. Patient continues to report mild soreness of breath. He remains on IV steroids. Lower extremity edema is stable. He is on IV Lasix. BUN increased yesterday to 23. BUN on admission 8. Echocardiogram completed revealed ejection fraction 55-60% with mild tricuspid regurgitation PHYSICAL EXAM: VITAL SIGNS: Reviewed. GENERAL: Well-developed in no acute distress. HEENT: Head is normocephalic. Pupils are equal, round. Sclerae anicteric. Mucous membranes of the mouth are moist. Neck supple. No JVD or thyromegaly LUNGS: Respirations even and unlabored. Lungs diminished with scattered rhonchi and expiratory wheezing HEART: Regular rate and rhythm. S1 and S2 heard. ABDOMEN: Soft. Nondistended. Nontender. EXTREMITIES: Normal range of motion. No clubbing or cyanosis. Peripheral pulses intact. Trace bilateral lower extremity edema NEUROLOGIC: Awake and alert. Oriented x 3. ASSESSMENT: Shortness of breath Acute exacerbation of COPD Chronic systolic heart failure, ejection fraction 40% Former nicotine dependence PLAN: Continue current cardiac medications Discontinue IV Lasix. Resume home dose of oral Lasix Knee high KARIN hose Elevate extremities when in the chair or bed We will sign off. Please reconsult if needed Nurse practitioner note has been reviewed by physician. Signing provider agrees with the documented findings, assessment, and plan of care. Objective - Vital Signs Vital signs: Vital Signs Temp 98.5 F 08/17/20 07:00 Pulse 75 08/17/20 08:19 Resp 14 08/17/20 07:00 BP 131/69 08/17/20 07:00 Pulse Ox 94 L 08/17/20 07:00 Intake & Output 08/16/20 08/17/20 08/17/20 18:59 06:59 18:59 Intake Total 240 118 Balance 240 118 Weight 98 kg Intake: Oral 240 118 Other: Voiding Method Toilet - Labs CBC & Chem 7: 08/17/20 05:45 08/16/20 04:57 Labs: Abnormal Lab Results - Last 24 Hours (Table) 08/16/20 08/16/20 08/16/20 Range/Units 12:12 17:22 19:53 RBC (4.30-5.90) m/uL Hgb (13.0-17.5) gm/dL Hct (39.0-53.0) % Neutrophils # (1.3-7.7) k/uL POC Glucose (mg/dL) 145 H 174 H 206 H (75-99) mg/dL 08/17/20 08/17/20 Range/Units 05:45 07:22 RBC 3.90 L (4.30-5.90) m/uL Hgb 12.9 L (13.0-17.5) gm/dL Hct 38.5 L (39.0-53.0) % Neutrophils # 8.2 H (1.3-7.7) k/uL POC Glucose (mg/dL) 139 H (75-99) mg/dL Microbiology - Last 24 Hours (Table) 08/15/20 18:10 Gram Stain - Final Sputum Sputum Culture - Final
--- NOTE | 2020-08-17 11:50 | P.PN ---
Subjective Progress Note Date: 08/17/20 Principal diagnosis: Shortness of breath 65-year-old male patient presented to [facility] department with multiple complaints. The patient's main complaint was abdominal pain that started in his left lower quadrant at around 8:00 in the admission.. No vomiting. No emesis. No diar dariusz. He was also having some increased dyspnea, increased cough and chest tightness and wheezing which is typical for his underlying COPD exacerbation. For that, the patient came into the emergency department and was hospitalized. The patient otherwise was afebrile hemodynamically stable. His EKG showed a normal sinus rhythm. His vitals were stable. His CMP and CBC were unremarkable. His lactic acid level was at 2.2. Amylase and lipase were nonspecific. CAT scan of the abdomen and pelvis was done and it showed no acute abnormalities. He was hospitalized for an acute COPD exacerbation. He was given breathing treatments. He was given 2 DuoNeb treatments in the emergency department and he was started also on IV Solu-Medrol. His chest x-ray showed some pulmonary vascular congestion. His proBNP level was 320. On 08/16/2020 patient seen in follow-up on medical surgical floor. He is sitting up in the bed, he states he is feeling better, he is on room air, his pulse ox is 94-97%. He is mild swelling in his lower extremities, but overall reports improvement with his breathing. No fever or chills, he is still however very wheezy. Remains on IV Solu-Medrol 40 mg every 8 hours, Levaquin, and breathing treatments. On 08/17/2020 patient seen in follow-up on medical surgical floor. He states he didn't feel much improvement in terms of his wheezing and shortness of breath. He sitting up on the edge of the bed, appears to be in no acute distress, room air pulse ox is 94%, he is afebrile, hemodynamically stable, reports no chest discomfort, no fever or chills. On physical exam patient's lung sounds are positive for scattered wheezes. In patient is still very much bronchospastic. He remains on IV Solu-Medrol he is on Levaquin, and breathing treatments. Objective - Vital Signs Vital signs: Vital Signs Temp 98.5 F 08/17/20 07:00 Pulse 75 08/17/20 08:19 Resp 14 08/17/20 07:00 BP 131/69 08/17/20 07:00 Pulse Ox 94 L 08/17/20 07:00 Intake & Output 08/16/20 08/17/20 08/17/20 18:59 06:59 18:59 Intake Total 240 118 Balance 240 118 Weight 98 kg Intake: Oral 240 118 Other: Voiding Method Toilet - Exam GENERAL EXAM: Alert, very pleasant, 65-year-old white male, sitting up in bed, on room air, with pulse ox of 94-97% comfortable in no apparent distress. HEAD: Normocephalic/atraumatic. EYES: Normal reaction of pupils, equal size. Conjunctiva pink, sclera white. NOSE: Clear with pink turbinates. THROAT: No erythema or exudates. NECK: No masses, no JVD, no thyroid enlargement, no adenopathy. CHEST: No chest wall deformity. Symmetrical expansion. LUNGS: Equal air entry with diffuse wheezes CVS: Regular rate and rhythm, normal S1 and S2, no gallops, no murmurs, no rubs ABDOMEN: Soft, nontender. No hepatosplenomegaly, normal bowel sounds, no guarding or rigidity. EXTREMITIES: No clubbing, mild nonpitting edema no cyanosis, 2+ pulses and upper and lower extremities. MUSCULOSKELETAL: Muscle strength and tone normal. SPINE: No scoliosis or deformity SKIN: No rashes CENTRAL NERVOUS SYSTEM: Alert and oriented -3. No focal deficits, tone is normal in all 4 extremities. PSYCHIATRIC: Alert and oriented -3. Appropriate affect. Intact judgment and insight. - Labs CBC & Chem 7: 08/17/20 05:45 08/16/20 04:57 Labs: Abnormal Lab Results - Last 24 Hours (Table) 08/16/20 08/16/20 08/16/20 Range/Units 12:12 17:22 19:53 RBC (4.30-5.90) m/uL Hgb (13.0-17.5) gm/dL Hct (39.0-53.0) % Neutrophils # (1.3-7.7) k/uL POC Glucose (mg/dL) 145 H 174 H 206 H (75-99) mg/dL 08/17/20 08/17/20 Range/Units 05:45 07:22 RBC 3.90 L (4.30-5.90) m/uL Hgb 12.9 L (13.0-17.5) gm/dL Hct 38.5 L (39.0-53.0) % Neutrophils # 8.2 H (1.3-7.7) k/uL POC Glucose (mg/dL) 139 H (75-99) mg/dL Microbiology - Last 24 Hours (Table) 08/15/20 18:10 Gram Stain - Final Sputum Sputum Culture - Final Assessment and Plan Plan: Assessment: 1. Acute COPD exacerbation with secondary shortness of breath. On examination, the patient is extensively bronchospastic and wheezy. No clear indication of any congestion heart failure. Rule out tracheal bronchitis.note that the patient also tested negative for COVID-19. Has not received vaccinations. 2. history of atrial fibrillation currently in a normal sinus rhythm. 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 ProBNP level is not elevated. This is based on echocardiogram that was done in 2019. He does have 4. previous hospitalization for acute exacerbation of chronic obstructive pulmonary disease, status post bronchoscopies with BAL 2, and bronchial lavage performed on 09/01/2019 showed evidence of pseudomonas aeruginosa, and Klebsiella oxytoca, and Jamila albicans, patient was discharged home on 09/04/2019 on oral course of Levaquin 5. Glaucoma 6. Herring's esophagus 7. Previous history of tobacco use Plan: Still quite bronchospastic on today's exam Continue current medical treatment Continue IV steroids Continue antibiotics Continue breathing treatments Follow-up chest x-ray today I performed a history & physical examination of the patient and discussed their management with my nurse practitioner, Luana Arcos. I reviewed the nurse practitioner's note and agree with the documented findings and plan of care. Lung sounds are positive for diffuse wheezes throughout the lung malagon. The findings and the impression was discussed with the patient. I attest to the documentation by the nurse practitioner. Time with Patient: Less than 30
--- NOTE | 2020-08-17 12:04 | XR ---
EXAMINATION TYPE: XR chest 1V DATE OF EXAM: 08/17/2020 COMPARISON: Chest x-ray 08/15/[address] 11/09/2014 HISTORY: Shortness of breath TECHNIQUE: Single frontal view of the chest is obtained. FINDINGS: Patient is rotated. Apical pleural thickening is noted. Aorta is dense. There is eventratio n of the hemidiaphragms. Interstitium is mildly increased. There is no focal air space opacity, pleur al effusion, or pneumothorax seen. The cardiac silhouette size is within normal limits. The osseou s structures are intact, there is arthropathy in the shoulders. IMPRESSION: No acute process. There is underlying emphysema.
[2020-08-17 12:05] LABS: Glucose,Whole Blood 148 mg/dL (75-99)
--- NOTE | 2020-08-17 14:13 | P.PN ---
Subjective Progress Note Date: 08/17/20 This is a 65-year-old male who was recently admitted with shortness of breath and possible COPD exacerbation along with acute purulent tracheobronchitis as well as congestive heart failure acute exacerbation and is being closely monitored. Patient continues on IV Lasix with cardiology following as well as breathing inhalational treatments and IV steroids. Pulmonary is also following closely. Patient continues to be dyspneic with exertion and is currently sitting up at the site of the bed on room air. Patient underwent CT abdomen and pelvis which was resulting in no abnormalities and lab work shows odium is 135 with a potassium of 3.8 and creatinine is within normal limits at 0.9. Blood sugars variable and will continue with current regimen. 08/17/2020 Patient is seen and evaluated this morning and follow-up continues to be on Levaquin along with breathing inhalational treatments and IV steroids and will continue at this time. Pulmonary and cardiology following and patient has been resumed on home dose of oral Lasix and will continue. Recommend compression stockings and elevating lower extremities while at rest. Patient does sit at the side of the bed with legs being dependent and did discuss about elevating extremities. Patient continues to have audible expiratory wheezing noted with a cough and will continue current medication regimen. Sputum culture shows normal respiratory nalini with no aureus or aeruginosa recovered. Patient still having dyspnea on exertion. Review of systems: Constitutional: No reports of fatigue, fever, or chills Cardiovascular: No reports of chest pain or palpitations Respiratory: Reports continued shortness of breath and minimal cough with no phlegm production GI: No reports of nausea, vomiting, or diarrhea, no reports of abdominal pain today : No reports of dysuria or retention Neurovascular: No reports of weakness or numbness All medications have been reviewed Objective - Vital Signs Vital signs: Vital Signs Temp 98.5 F 08/17/20 07:00 Pulse 80 08/17/20 12:00 Resp 14 08/17/20 08:00 BP 131/69 08/17/20 07:00 Pulse Ox 94 L 08/17/20 07:00 Intake & Output 08/16/20 08/17/20 08/17/20 18:59 06:59 18:59 Intake Total 240 118 Balance 240 118 Weight 98 kg Intake: Oral 240 118 Other: Voiding Method Toilet Toilet - Exam Gen: This is a 65-year-old male sitting at the side of the bed awake, alert and oriented 3, well-developed, well-nourished. Temp is 98.5F, pulse is 70, respirations are 14, blood pressure is 131/69, oxygen saturation is 94% on room air. HEENT: Head is atraumatic, normocephalic. Pupils equal, round. Sclerae is anicteric. NECK: Supple. No JVD. No lymphadenopathy. No thyromegaly. LUNGS: Diminished breath sounds bilaterally with scattered expiratory wheezing noted throughout. No intercostal retractions. HEART: S1, S2 are muffled ABDOMEN: Soft. Obese. Bowel sounds are present. No masses. No tenderness. EXTREMITIES: No pedal edema. No calf tenderness. NEUROLOGICAL: Patient is awake, alert and oriented x3. Cranial nerves 2 through 12 are grossly intact. - Labs CBC & Chem 7: 08/17/20 05:45 08/16/20 04:57 Labs: Abnormal Lab Results - Last 24 Hours (Table) 08/16/20 08/16/20 08/17/20 Range/Units 17:22 19:53 05:45 RBC 3.90 L (4.30-5.90) m/uL Hgb 12.9 L (13.0-17.5) gm/dL Hct 38.5 L (39.0-53.0) % Neutrophils # 8.2 H (1.3-7.7) k/uL POC Glucose (mg/dL) 174 H 206 H (75-99) mg/dL 08/17/20 08/17/20 Range/Units 07:22 12:03 RBC (4.30-5.90) m/uL Hgb (13.0-17.5) gm/dL Hct (39.0-53.0) % Neutrophils # (1.3-7.7) k/uL POC Glucose (mg/dL) 139 H 148 H (75-99) mg/dL Microbiology - Last 24 Hours (Table) 08/15/20 18:10 Gram Stain - Final Sputum Sputum Culture - Final Assessment and Plan Assessment: Shortness of breath, multifactorial with COPD exacerbation with acute purulent tracheobronchitis as well as congestive heart failure acute exacerbation with acute on chronic systolic dysfunction ejection fraction 40-45% History of paroxysmal atrial fibrillation history of COPD history of glaucoma history of degenerative joint disease elevated amylase without any evidence of pancreatitis on the computed tomography scan history of Herring's esophagus hyponatremia, chronic Anemia, normocytic anemia of chronic disease Elevated plasma lactic acid COVID-19 negative Full code Plan: Recommend to continue with current medications and symptomatic treatment. Patient will continue on bronchodilators along with IV steroids with pulmonary following. Cardiology also following and patient and patient transitioned oral Lasix. Recommend compression stockings to lower extremities or Timur wraps from the toes up to the knees and instructed the patient to elevate lower extremities while at rest. Patient to continue on antibiotics. Sputum culture showing normal nalini. Encourage the patient to increase activity as tolerated. Patient underwent 2-D echo showing moderate concentric left ventricular hypertrophy with overall LV systolic function is normal with an EF of 55-60% with some mild tricuspid regurgitation present. Due to multiple complex medical issues, prognosis is guarded. Possible discharge in 24 hours.
[2020-08-17 14:15] LABS: African American GFR (CKD) 102.1 (60.0-200.0); Anion Gap 12.6 mmol/L (4.00-12.00); BUN/Creat Ratio 22.22 Ratio (12.00-20.00); Calcium 8.7 mg/dL (8.7-10.3); Carbon Dioxide 33.4 mmol/L (21.6-31.8); Non-African American GFR(CKD) 88.1 (60.0-200.0); Potassium 3.6 mmol/L (3.5-5.5)
[2020-08-17 17:19] LABS: Glucose,Whole Blood 135 mg/dL (75-99)
[2020-08-17 20:26] LABS: Glucose,Whole Blood 207 mg/dL (75-99)
[2020-08-17] MEDS: LATANOPROST 0.005% OPHTH DROPS 2.5 ML BTL LEFT EYE SCH (20:33)
[2020-08-18] MEDS: methylPREDNISolone SOD SUCCI 40 MG/ML 1 ML VIAL IV SCH ×2 (00:27→07:49)
[2020-08-18] MEDS: Acetaminophen-Codeine 300-30mg TAB PO PRN ×2 (00:39→19:37)
[2020-08-18 07:25] LABS: Glucose,Whole Blood 145 mg/dL (75-99)
[2020-08-18] MEDS: SPIRONOLACTONE 25 MG TAB PO SCH (07:47)
[2020-08-18] MEDS: MULTIVITAMINS, THERA 1 EACH TAB PO SCH (07:47)
[2020-08-18] MEDS: HEPARIN SODIUM,PORCINE/PF 5,000 UNIT/0.5 ML SYRINGE SQ SCH ×2 (07:47→19:37)
[2020-08-18] MEDS: INSULIN ASPART (NovoLOG) 100 UNIT/ML VIAL SQ SCH ×4 (07:48→21:13)
[2020-08-18] MEDS: PANTOPRAZOLE 40 MG TABLET PO SCH (07:48)
[2020-08-18] MEDS: CHOLECALCIFEROL 25 MCG (1000 IU) TABLET PO SCH (07:48)
[2020-08-18] MEDS: LEVOFLOXACIN 750 MG TAB PO SCH (07:49)
[2020-08-18] MEDS: GABAPENTIN 100 MG CAP PO SCH (07:49)
[2020-08-18] MEDS: FUROSEMIDE 40 MG TAB PO SCH (07:49)
[2020-08-18] MEDS: VIT A,C & E-LUTEIN-MINERALS 1 EACH TAB PO SCH ×2 (07:50→19:37)
[2020-08-18] MEDS: FORMOTEROL FUMARATE 20 MCG/2 ML NEBU INHALATION SCH ×3 (08:12→21:47)
[2020-08-18] MEDS: BUDESONIDE 1 MG/2 ML NEBU INHALATION SCH ×2 (08:12→20:41)
[2020-08-18] MEDS: IPRATROPIUM-ALBUTEROL 3 ML NEB INHALATION SCH ×4 (08:13→20:41)
--- NOTE | 2020-08-18 11:22 | P.PN ---
Subjective Progress Note Date: 08/18/20 Principal diagnosis: Shortness of breath 65-year-old male patient presented to [facility] department with multiple complaints. The patient's main complaint was abdominal pain that started in his left lower quadrant at around 8:00 in the admission.. No vomiting. No emesis. No diar dariusz. He was also having some increased dyspnea, increased cough and chest tightness and wheezing which is typical for his underlying COPD exacerbation. For that, the patient came into the emergency department and was hospitalized. The patient otherwise was afebrile hemodynamically stable. His EKG showed a normal sinus rhythm. His vitals were stable. His CMP and CBC were unremarkable. His lactic acid level was at 2.2. Amylase and lipase were nonspecific. CAT scan of the abdomen and pelvis was done and it showed no acute abnormalities. He was hospitalized for an acute COPD exacerbation. He was given breathing treatments. He was given 2 DuoNeb treatments in the emergency department and he was started also on IV Solu-Medrol. His chest x-ray showed some pulmonary vascular congestion. His proBNP level was 320. On 08/16/2020 patient seen in follow-up on medical surgical floor. He is sitting up in the bed, he states he is feeling better, he is on room air, his pulse ox is 94-97%. He is mild swelling in his lower extremities, but overall reports improvement with his breathing. No fever or chills, he is still however very wheezy. Remains on IV Solu-Medrol 40 mg every 8 hours, Levaquin, and breathing treatments. On 08/17/2020 patient seen in follow-up on medical surgical floor. He states he didn't feel much improvement in terms of his wheezing and shortness of breath. He sitting up on the edge of the bed, appears to be in no acute distress, room air pulse ox is 94%, he is afebrile, hemodynamically stable, reports no chest discomfort, no fever or chills. On physical exam patient's lung sounds are positive for scattered wheezes. In patient is still very much bronchospastic. He remains on IV Solu-Medrol he is on Levaquin, and breathing treatments. On 08/18/2020 patient seen in follow-up on medical surgical floor, still coughing, still quite wheezy, and patient has been slow to improve. He remains on IV Solu-Medrol, currently 40 mg every 8 hours, Levaquin, nebulized bronchodilators, and daily dose of Lasix was added yesterday. His chest x-ray yesterday showed no acute process, and underlying emphysema. His echocardiogram from this admission showed improved LV function, with EF of 55-60% which is improved from was previous echocardiogram in August 2019 that showed EF of 40-45%. Patient is on room air, pulse ox is 90%, hemodynamically stable, no fever or chills. Sputum culture has shown no growth Objective - Vital Signs Vital signs: Vital Signs Temp 98.5 F 08/18/20 07:00 Pulse 88 08/18/20 08:35 Resp 18 08/18/20 08:35 BP 117/67 08/18/20 07:00 Pulse Ox 98 08/18/20 07:00 Intake & Output 08/17/20 08/18/20 08/18/20 18:59 06:59 18:59 Intake Total 838 220 Balance 838 220 Weight 97.3 kg Intake: Oral 838 220 Other: Voiding Method Toilet Toilet Toilet - Exam GENERAL EXAM: Alert, very pleasant, 65-year-old white male, sitting up in bed, on room air, with pulse ox of 97% comfortable in no apparent distress. HEAD: Normocephalic/atraumatic. EYES: Normal reaction of pupils, equal size. Conjunctiva pink, sclera white. NOSE: Clear with pink turbinates. THROAT: No erythema or exudates. NECK: No masses, no JVD, no thyroid enlargement, no adenopathy. CHEST: No chest wall deformity. Symmetrical expansion. LUNGS: Equal air entry with diffuse wheezes CVS: Regular rate and rhythm, normal S1 and S2, no gallops, no murmurs, no rubs ABDOMEN: Soft, nontender. No hepatosplenomegaly, normal bowel sounds, no guarding or rigidity. EXTREMITIES: No clubbing, mild nonpitting edema no cyanosis, 2+ pulses and upper and lower extremities. MUSCULOSKELETAL: Muscle strength and tone normal. SPINE: No scoliosis or deformity SKIN: No rashes CENTRAL NERVOUS SYSTEM: Alert and oriented -3. No focal deficits, tone is normal in all 4 extremities. PSYCHIATRIC: Alert and oriented -3. Appropriate affect. Intact judgment and insight. - Labs CBC & Chem 7: 08/17/20 05:45 08/17/20 05:56 Labs: Abnormal Lab Results - Last 24 Hours (Table) 08/17/20 08/17/20 08/17/20 Range/Units 05:56 12:03 17:14 Chloride 91 L (96-109) mmol/L Carbon Dioxide 33.4 H (21.6-31.8) mmol/L Anion Gap 12.60 H (4.00-12.00) mmol/L BUN/Creatinine Ratio 22.22 H (12.00-20.00) Ratio Glucose 142 H (70-110) mg/dL POC Glucose (mg/dL) 148 H 135 H (75-99) mg/dL 08/17/20 08/18/20 Range/Units 20:25 07:24 Chloride (96-109) mmol/L Carbon Dioxide (21.6-31.8) mmol/L Anion Gap (4.00-12.00) mmol/L BUN/Creatinine Ratio (12.00-20.00) Ratio Glucose (70-110) mg/dL POC Glucose (mg/dL) 207 H 145 H (75-99) mg/dL Microbiology - Last 24 Hours (Table) 08/15/20 18:10 Gram Stain - Final Sputum Sputum Culture - Final Assessment and Plan Plan: Assessment: 1. Acute COPD exacerbation with secondary shortness of breath. On examination, the patient is extensively bronchospastic and wheezy. No clear indication of any congestion heart failure. Rule out tracheal bronchitis.note that the pa tient also tested negative for COVID-19. Has not received vaccinations. 2. history of atrial fibrillation currently in a normal sinus rhythm. 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 ProBNP level is not elevated. This is based on echocardiogram that was done in 2019. He does have 4. previous hospitalization for acute exacerbation of chronic obstructive pulmonary disease, status post bronchoscopies with BAL 2, and bronchial lavage performed on 09/01/2019 showed evidence of pseudomonas aeruginosa, and Kle bsiella oxytoca, and Jamila albicans, patient was discharged home on 09/04/2019 on oral course of Levaquin 5. Glaucoma 6. Herring's esophagus 7. Previous history of tobacco use Plan: Patient has been slow to improve Still coughing and bronchospastic Continue current medical treatment Continue IV steroids, increase IV steroids to 60 mg every 6 hours Continue antibiotics Continue breathing treatments Yesterday's chest x-ray has been reviewed showing no acute process Patient may require bronchoscopy with BAL on Sunday if shows no further improvement in next 24 hours I performed a history & physical examination of the patient and discussed their management with my nurse practitioner, Luana Arcos. I reviewed the nurse practitioner's note and agree with the documented findings and plan of care. Lung sounds are positive for diffuse wheezes throughout the lung malagon. The findings and the impression was discussed with the patient. I attest to the documentation by the nurse practitioner. Time with Patient: Less than 30
[2020-08-18 11:54] LABS: Glucose,Whole Blood 120 mg/dL (75-99)
--- NOTE | 2020-08-18 15:20 | P.PN ---
Subjective Progress Note Date: 08/18/20 This is a 65-year-old male who was recently admitted with shortness of breath and possible COPD exacerbation along with acute purulent tracheobronchitis as well as congestive heart failure acute exacerbation and is being closely monitored. Patient continues on IV Lasix with cardiology following as well as breathing inhalational treatments and IV steroids. Pulmonary is also following closely. Patient continues to be dyspneic with exertion and is currently sitting up at the site of the bed on room air. Patient underwent CT abdomen and pelvis which was resulting in no abnormalities and lab work shows odium is 135 with a potassium of 3.8 and creatinine is within normal limits at 0.9. Blood sugars variable and will continue with current regimen. 08/17/2020 Patient is seen and evaluated this morning and follow-up continues to be on Levaquin along with breathing inhalational treatments and IV steroids and will continue at this time. Pulmonary and cardiology following and patient has been resumed on home dose of oral Lasix and will continue. Recommend compression stockings and elevating lower extremities while at rest. Patient does sit at the side of the bed with legs being dependent and did discuss about elevating extremities. Patient continues to have audible expiratory wheezing noted with a cough and will continue current medication regimen. Sputum culture shows normal respiratory nalini with no aureus or aeruginosa recovered. Patient still having dyspnea on exertion. 08/18/2020 Patient is seen in follow-up this morning continues to be extremely bronchospastic with audible wheezing noted on exam. Patient does having multiple coughing spells and increasing dyspnea with exertion. Pulmonary following closely and have increased IV steroids to every 6 and will continue with breathing treatments. Will continue to monitor for another 24 hours and if no improvement will have bronchoscopy on Sunday. Will repeat a.m. labs and monitor closely. Review of systems: Constitutional: No reports of fatigue, fever, or chills Cardiovascular: No reports of chest pain or palpitations Respiratory: Reports continued shortness of breath and minimal cough with no phlegm production, reports coughing spells as well GI: No reports of nausea, vomiting, or diarrhea, no reports of abdominal pain today : No reports of dysuria or retention Neurovascular: No reports of weakness or numbness All medications have been reviewed Objective - Vital Signs Vital signs: Vital Signs Temp 98.6 F 08/18/20 14:40 Pulse 89 08/18/20 14:40 Resp 18 08/18/20 14:40 BP 114/68 08/18/20 14:40 Pulse Ox 98 08/18/20 14:40 Intake & Output 08/17/20 08/18/20 08/18/20 18:59 06:59 18:59 Intake Total 838 220 Balance 838 220 Weight 97.3 kg Intake: Oral 838 220 Other: Voiding Method Toilet Toilet Toilet - Exam Gen: This is a 65-year-old male sitting at the side of the bed awake, alert and oriented 3, well-developed, well-nourished. HEENT: Head is atraumatic, normocephalic. Pupils equal, round. Sclerae is anicteric. NECK: Supple. No JVD. No lymphadenopathy. No thyromegaly. LUNGS: Diminished breath sounds bilaterally with scattered rhonchi and expiratory wheezing noted throughout. No intercostal retractions. HEART: S1, S2 are muffled ABDOMEN: Soft. Obese. Bowel sounds are present. No masses. No tenderness. EXTREMITIES: No pedal edema. No calf tenderness. NEUROLOGICAL: Patient is awake, alert and oriented x3. Cranial nerves 2 through 12 are grossly intact. - Labs CBC & Chem 7: 08/17/20 05:45 08/17/20 05:56 Labs: Abnormal Lab Results - Last 24 Hours (Table) 08/17/20 08/17/20 08/18/20 Range/Units 17:14 20:25 07:24 POC Glucose (mg/dL) 135 H 207 H 145 H (75-99) mg/dL 08/18/20 Range/Units 11:53 POC Glucose (mg/dL) 120 H (75-99) mg/dL Assessment and Plan Assessment: Shortness of breath, multifactorial with COPD exacerbation with acute purulent tracheobronchitis as well as congestive heart failure acute exacerbation with acute on chronic systolic dysfunction ejection fraction 40-45% History of paroxysmal atrial fibrillation history of COPD history of glaucoma history of degenerative joint disease elevated amylase without any evidence of pancreatitis on the computed tomography scan history of Herring's esophagus hyponatremia, chronic Anemia, normocytic anemia of chronic disease Elevated plasma lactic acid COVID-19 negative Full code Plan: Recommend to continue with current medications and symptomatic treatment. Patient will continue on bronchodilators along with IV steroids with pulmonary following. IV steroids being increased as patient continues to be wheezy and bronchospastic on exam. Recommend compression stockings to lower extremities or Timur wraps from the toes up to the knees and instructed the patient to elevate lower extremities while at rest. Patient to continue on antibiotics. Sputum culture showing normal nalini. Encourage the patient to increase activity as tolerated. Patient underwent 2-D echo showing moderate concentric left ventri cular hypertrophy with overall LV systolic function is normal with an EF of 55- 60% with some mild tricuspid regurgitation present. Will continue to monitor for an additional 24 hours and if no improvement in respiratory status, pulmonary plans on performing bronchoscopy on Sunday.
[2020-08-18] MEDS: methylPREDNISolone SOD SUCCI 125 MG/2 ML VIAL IV SCH ×2 (15:54→19:36)
[2020-08-18 17:41] LABS: Glucose,Whole Blood 148 mg/dL (75-99)
[2020-08-18] MEDS: LATANOPROST 0.005% OPHTH DROPS 2.5 ML BTL LEFT EYE SCH (19:38)
[2020-08-18 20:25] LABS: Glucose,Whole Blood 214 mg/dL (75-99)
[2020-08-19] MEDS: methylPREDNISolone SOD SUCCI 125 MG/2 ML VIAL IV SCH ×4 (01:32→20:12)
[2020-08-19 07:07] LABS: Glucose,Whole Blood 148 mg/dL (75-99)
[2020-08-19] MEDS: BUDESONIDE 1 MG/2 ML NEBU INHALATION SCH ×2 (07:21→20:03)
[2020-08-19] MEDS: IPRATROPIUM-ALBUTEROL 3 ML NEB INHALATION SCH ×4 (07:21→20:03)
[2020-08-19] MEDS: FORMOTEROL FUMARATE 20 MCG/2 ML NEBU INHALATION SCH ×2 (07:21→20:03)
[2020-08-19] MEDS: INSULIN ASPART (NovoLOG) 100 UNIT/ML VIAL SQ SCH ×4 (08:34→20:36)
[2020-08-19] MEDS: CHOLECALCIFEROL 25 MCG (1000 IU) TABLET PO SCH (08:35)
[2020-08-19] MEDS: HEPARIN SODIUM,PORCINE/PF 5,000 UNIT/0.5 ML SYRINGE SQ SCH ×2 (08:35→20:13)
[2020-08-19] MEDS: PANTOPRAZOLE 40 MG TABLET PO SCH (08:36)
[2020-08-19] MEDS: SPIRONOLACTONE 25 MG TAB PO SCH (08:36)
[2020-08-19] MEDS: GABAPENTIN 100 MG CAP PO SCH (08:36)
[2020-08-19] MEDS: FUROSEMIDE 40 MG TAB PO SCH (08:36)
[2020-08-19] MEDS: MULTIVITAMINS, THERA 1 EACH TAB PO SCH (08:36)
[2020-08-19] MEDS: LEVOFLOXACIN 750 MG TAB PO SCH (08:37)
[2020-08-19] MEDS: VIT A,C & E-LUTEIN-MINERALS 1 EACH TAB PO SCH ×2 (08:38→20:13)
[2020-08-19 09:22] LABS: African American GFR (CKD) >90 (>60 ml/min/1.73 sqM); Anion Gap 7 mmol/L; Blood Urea Nitrogen 19 mg/dL (9-20); Calcium 8.8 mg/dL (8.4-10.2); Carbon Dioxide 34 mmol/L (22-30); Chloride 93 mmol/L (98-107); Glucose 205 mg/dL (74-99); Non-African American GFR(CKD) >90 (>60 ml/min/1.73 sqM); Sodium 134 mmol/L (137-145)
[2020-08-19 09:30] LABS: Basophils % (A) 0 %; Eosinophils # (A) 0.1 k/uL (0-0.7); Eosinophils % (A) 1 %; HCT 41.1 % (39.0-53.0); HGB 13.3 gm/dL (13.0-17.5); Lymphocytes % (A) 9 %; MCHC 32.4 g/dL (31.0-37.0); MCV 98.9 fL (80.0-100.0); Mean Platelet Volume 6.7; Monocytes # (A) 0.5 k/uL (0-1.0); Monocytes % (A) 4 %; Neutrophils # (A) 10.1 k/uL (1.3-7.7); Neutrophils % (A) 86 %; Platelet Count 367 k/uL (150-450); RBC 4.15 m/uL (4.30-5.90); RDW 12.9 % (11.5-15.5); WBC 11.7 k/uL (3.8-10.6)
[2020-08-19 09:32] LABS: Potassium 3.8 mmol/L (3.5-5.1)
--- NOTE | 2020-08-19 11:58 | P.PN ---
Subjective Progress Note Date: 08/19/20 Principal diagnosis: Shortness of breath 65-year-old male patient presented to [facility] department with multiple complaints. The patient's main complaint was abdominal pain that started in his left lower quadrant at around 8:00 in the admission.. No vomiting. No emesis. No diar dariusz. He was also having some increased dyspnea, increased cough and chest tightness and wheezing which is typical for his underlying COPD exacerbation. For that, the patient came into the emergency department and was hospitalized. The patient otherwise was afebrile hemodynamically stable. His EKG showed a normal sinus rhythm. His vitals were stable. His CMP and CBC were unremarkable. His lactic acid level was at 2.2. Amylase and lipase were nonspecific. CAT scan of the abdomen and pelvis was done and it showed no acute abnormalities. He was hospitalized for an acute COPD exacerbation. He was given breathing treatments. He was given 2 DuoNeb treatments in the emergency department and he was started also on IV Solu-Medrol. His chest x-ray showed some pulmonary vascular congestion. His proBNP level was 320. On 08/16/2020 patient seen in follow-up on medical surgical floor. He is sitting up in the bed, he states he is feeling better, he is on room air, his pulse ox is 94-97%. He is mild swelling in his lower extremities, but overall reports improvement with his breathing. No fever or chills, he is still however very wheezy. Remains on IV Solu-Medrol 40 mg every 8 hours, Levaquin, and breathing treatments. On 08/17/2020 patient seen in follow-up on medical surgical floor. He states he didn't feel much improvement in terms of his wheezing and shortness of breath. He sitting up on the edge of the bed, appears to be in no acute distress, room air pulse ox is 94%, he is afebrile, hemodynamically stable, reports no chest discomfort, no fever or chills. On physical exam patient's lung sounds are positive for scattered wheezes. In patient is still very much bronchospastic. He remains on IV Solu-Medrol he is on Levaquin, and breathing treatments. On 08/18/2020 patient seen in follow-up on medical surgical floor, still coughing, still quite wheezy, and patient has been slow to improve. He remains on IV Solu-Medrol, currently 40 mg every 8 hours, Levaquin, nebulized bronchodilators, and daily dose of Lasix was added yesterday. His chest x-ray yesterday showed no acute process, and underlying emphysema. His echocardiogram from this admission showed improved LV function, with EF of 55-60% which is improved from was previous echocardiogram in August 2019 that showed EF of 40-45%. Patient is on room air, pulse ox is 90%, hemodynamically stable, no fever or chills. Sputum culture has shown no growth On 08/19/2020 patient seen in follow-up on medical surgical floor. He has been very slow to improve, still coughing, still wheezing, despite maximizing his medical treatment, his been afebrile. Vital signs have been stable, he is on room air, today's labs have been reviewed, white blood cell count is 11.7, hemoglobin is 13.3, sodium is 134, chloride is 93, CO2 34, and renal profile was within normal limits. Remains on Levaquin, IV steroids, and nebulized bronchodilators. His follow-up chest x-ray showed no acute process. We discus sed possibility of bronchoscopy with BAL with him yesterday to which he was agreeable and we'll place the patient on the schedule for tomorrow. Objective - Vital Signs Vital signs: Vital Signs Temp 97.7 F 08/19/20 07:00 Pulse 88 08/19/20 11:21 Resp 18 08/19/20 11:21 BP 118/65 08/19/20 07:00 Pulse Ox 94 L 08/19/20 07:00 Intake & Output 08/18/20 08/19/20 08/19/20 18:59 06:59 18:59 Intake Total 220 200 Balance 220 200 Weight 97.7 kg Intake: Oral 220 200 Other: Voiding Method Toilet Toilet Toilet - Exam GENERAL EXAM: Alert, very pleasant, 65-year-old white male, sitting up in bed, on room air, with pulse ox of 97% comfortable in no apparent distress. HEAD: Normocephalic/atraumatic. EYES: Normal reaction of pupils, equal size. Conjunctiva pink, sclera white. NOSE: Clear with pink turbinates. THROAT: No erythema or exudates. NECK: No masses, no JVD, no thyroid enlargement, no adenopathy. CHEST: No chest wall deformity. Symmetrical expansion. LUNGS: Equal air entry with diffuse wheezes CVS: Regular rate and rhythm, normal S1 and S2, no gallops, no murmurs, no rubs ABDOMEN: Soft, nontender. No hepatosplenomegaly, normal bowel sounds, no guarding or rigidity. EXTREMITIES: No clubbing, mild nonpitting edema no cyanosis, 2+ pulses and upper and lower extremities. MUSCULOSKELETAL: Muscle strength and tone normal. SPINE: No scoliosis or deformity SKIN: No rashes CENTRAL NERVOUS SYSTEM: Alert and oriented -3. No focal deficits, tone is normal in all 4 extremities. PSYCHIATRIC: Alert and oriented -3. Appropriate affect. Intact judgment and insight. - Labs CBC & Chem 7: 08/19/20 08:58 08/19/20 08:58 Labs: Abnormal Lab Results - Last 24 Hours (Table) 08/18/20 08/18/20 08/18/20 Range/Units 11:53 17:39 20:24 WBC (3.8-10.6) k/uL RBC (4.30-5.90) m/uL Neutrophils # (1.3-7.7) k/uL Sodium (137-145) mmol/L Chloride (98-107) mmol/L Carbon Dioxide (22-30) mmol/L Glucose (74-99) mg/dL POC Glucose (mg/dL) 120 H 148 H 214 H (75-99) mg/dL 08/19/20 08/19/20 08/19/20 Range/Units 07:06 08:58 08:58 WBC 11.7 H (3.8-10.6) k/uL RBC 4.15 L (4.30-5.90) m/uL Neutrophils # 10.1 H (1.3-7.7) k/uL Sodium 134 L (137-145) mmol/L Chloride 93 L (98-107) mmol/L Carbon Dioxide 34 H (22-30) mmol/L Glucose 205 H (74-99) mg/dL POC Glucose (mg/dL) 148 H (75-99) mg/dL Assessment and Plan Plan: Assessment: 1. Acute COPD exacerbation with secondary shortness of breath. On examination, the patient is extensively bronchospastic and wheezy. No clear indication of any congestion heart failure. Rule out tracheal bronchitis.note that the patient also tested negative for COVID-19. Has not received vaccinations. 2. history of atrial fibrillation currently in a normal sinus rhythm. 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 ProBNP level is not elevated. This is based on echocardiogram that was done in 2019. He does have 4. previous hospitalization for acute exacerbation of chronic obstructive pulmonary disease, status post bronchoscopies with BAL 2, and bronchial lavage performed on 09/01/2019 showed evidence of pseudomonas aeruginosa, and Klebsiella oxytoca, and Jamila albicans, patient was discharged home on 09/04/2019 on oral course of Levaquin 5. Glaucoma 6. Herring's esophagus 7. Previous history of tobacco use Plan: Patient has been slow to improve Still coughing and bronchospastic Continue current medical treatment We will place the patient on the schedule for tomorrow for bronchoscopy with BAL with Dr. Woods This was discussed with the patient was agreeable to proceed I performed a history & physical examination of the patient and discussed their management with my nurse practitioner, Luana Arcos. I reviewed the nurse practitioner's note and agree with the documented findings and plan of care. Lung sounds are positive for diffuse wheezes throughout the lung malagon. The findings and the impression was discussed with the patient. I attest to the documentation by the nurse practitioner. Time with Patient: Less than 30
[2020-08-19 12:05] LABS: Glucose,Whole Blood 119 mg/dL (75-99)
[2020-08-19] MEDS ORDERED: LIDOCAINE 1% (10MG/ML) FOR IV START INTRADERMA PRN (14:09)
--- NOTE | 2020-08-19 15:46 | P.PN ---
Subjective Progress Note Date: 08/19/20 This is a 65-year-old male who was recently admitted with shortness of breath and possible COPD exacerbation along with acute purulent tracheobronchitis as well as congestive heart failure acute exacerbation and is being closely monitored. Patient continues on IV Lasix with cardiology following as well as breathing inhalational treatments and IV steroids. Pulmonary is also following closely. Patient continues to be dyspneic with exertion and is currently sitting up at the site of the bed on room air. Patient underwent CT abdomen and pelvis which was resulting in no abnormalities and lab work shows odium is 135 with a potassium of 3.8 and creatinine is within normal limits at 0.9. Blood sugars variable and will continue with current regimen. 08/17/2020 Patient is seen and evaluated this morning and follow-up continues to be on Levaquin along with breathing inhalational treatments and IV steroids and will continue at this time. Pulmonary and cardiology following and patient has been resumed on home dose of oral Lasix and will continue. Recommend compression stockings and elevating lower extremities while at rest. Patient does sit at the side of the bed with legs being dependent and did discuss about elevating extremities. Patient continues to have audible expiratory wheezing noted with a cough and will continue current medication regimen. Sputum culture shows normal respiratory nalini with no aureus or aeruginosa recovered. Patient still having dyspnea on exertion. 08/18/2020 Patient is seen in follow-up this morning continues to be extremely bronchospastic with audible wheezing noted on exam. Patient does having multiple coughing spells and increasing dyspnea with exertion. Pulmonary following closely and have increased IV steroids to every 6 and will continue with breathing treatments. Will continue to monitor for another 24 hours and if no improvement will have bronchoscopy on Sunday. Will repeat a.m. labs and monitor closely. 08/19/2020 Patient is seen this morning with expiratory audible wheezes on exam although slightly improved but continues on IV steroids every 6 hours with pulmonary following closely. She also continues with breathing inhalational treatments and oral antibiotics in the form of Levaquin. Patient is very slow to improve and plans are for bronchoscopy with BAL in the morning. Will await report. Patient underwent chest CT which is pending at this time. Review of systems: Constitutional: No reports of fatigue, fever, or chills Cardiovascular: No reports of chest pain or palpitations Respiratory: Reports continued shortness of breath and minimal cough with no phlegm production, reports coughing spells as well GI: No reports of nausea, vomiting, or diarrhea, reports mild left lower quadrant abdominal pain today : No reports of dysuria or retention Neurovascular: No reports of weakness or numbness All medications have been reviewed Objective - Vital Signs Vital signs: Vital Signs Temp 97.7 F 08/19/20 07:00 Pulse 80 08/19/20 07:46 Resp 16 08/19/20 07:46 BP 118/65 08/19/20 07:00 Pulse Ox 94 L 08/19/20 07:00 Intake & Output 08/18/20 08/19/20 08/19/20 18:59 06:59 18:59 Intake Total 220 Balance 220 Weight 97.7 kg Intake: Oral 220 Other: Voiding Method Toilet Toilet - Exam Gen: This is a 65-year-old male sitting at the side of the bed awake, alert and oriented 3, well-developed, well-nourished. HEENT: Head is atraumatic, normocephalic. Pupils equal, round. Sclerae is anicteric. NECK: Supple. No JVD. No lymphadenopathy. No thyromegaly. LUNGS: Diminished breath sounds bilaterally with scattered rhonchi and expiratory wheezing noted throughout. Coughing throughout exam and bronchospastic. No intercostal retractions. HEART: S1, S2 are muffled ABDOMEN: Soft. Obese. Bowel sounds are present. No masses. No tenderness. Left Lower quadrant discomfort EXTREMITIES: No pedal edema. No calf tenderness. NEUROLOGICAL: Patient is awake, alert and oriented x3. Cranial nerves 2 through 12 are grossly intact. - Labs CBC & Chem 7: 08/19/20 08:58 08/19/20 08:58 Labs: Abnormal Lab Results - Last 24 Hours (Table) 08/18/20 08/18/20 08/18/20 Range/Units 11:53 17:39 20:24 POC Glucose (mg/dL) 120 H 148 H 214 H (75-99) mg/dL 08/19/20 Range/Units 07:06 POC Glucose (mg/dL) 148 H (75-99) mg/dL Assessment and Plan Assessment: Shortness of breath, multifactorial with COPD exacerbation with acute purulent tracheobronchitis as well as congestive heart failure acute exacerbation with acute on chronic systolic dysfunction ejection fraction 40-45% History of paroxysmal atrial fibrillation history of COPD history of glaucoma history of degenerative joint disease elevated amylase without any evidence of pancreatitis on the computed tomography scan history of Herring's esophagus hyponatremia, chronic Anemia, normocytic anemia of chronic disease Elevated plasma lactic acid COVID-19 negative Full code Plan: Recommend to continue with current medications and symptomatic treatment. Patient will continue on bronchodilators along with IV steroids with pulmonary following. IV steroids and continued every 6 hours as patient continues to be wheezy and bronchospastic on exam. Recommend compression stockings to lower extremities or Timur wraps from the toes up to the knees and instructed the patient to elevate lower extremities while at rest. Patient to continue on antibiotics. Sputum culture showing normal nalini. Encourage the patient to increase activity as tolerated. Patient underwent 2-D echo showing moderate concentric left ventricular hypertrophy with overall LV systolic function is normal with an EF of 55-60% with some mild tricuspid regurgitation present. This is an improvement in EF from previous 2-D echo. Patient is scheduled to undergo bronchoscopy with BAL with pulmonary in the morning. Will await report.
--- NOTE | 2020-08-19 15:47 | CT ---
EXAMINATION TYPE: High-resolution CT chest DATE OF EXAM: 08/19/2020 COMPARISON: Radiographs 08/17/2020, CT 11/09/2014 HISTORY: 65-year-old male SOB, COPD TECHNIQUE: Contiguous high-resolution scanning of the chest without IV contrast utilizing 1 mm slice thickness and 1 cm gap per HRCT protocol. Prone and supine imaging is performed. CT DLP: 195 mGycm Automated exposure control for dose reduction was used. FINDINGS: Heart normal size without pericardial effusion. LAD and RCA coronary artery calcifications are presen t. Stable mild aneurysm aortic root at 4.2 cm. Mild ectasia ascending aorta 3.9 cm. Conventional arch ve ssel branching anatomy and scattered mild arthroscopic calcifications throughout the aorta. No thoracic lymphadenopathy by CT size criteria. Prominent biapical pleural parenchymal scarring is redemonstrated. Moderate diffuse bronchial wall th ickening appears increased from 2014. Strandy adherent mucoid debris left lateral wall of the lower t rachea and within the left mainstem bronchus. Some minimal scattered endobronchial plugging in the lower lobes. Mild to moderate upper lung centril obular emphysema. No bronchiectasis, honeycombing, dominant groundglass densities, centrilobular nodularity, tree-in-bu d opacities, consolidation, or pleural effusion. No thickening of the bronchovascular bundles. HRCT technique limited for assessment of small pulmonary nodules. Visualized upper abdomen shows no gross abnormality. Bones: No osseous destructive process. IMPRESSION: 1. NO SPECIFIC HRCT FINDINGS OF INTERSTITIAL LUNG DISEASE. NO EVIDENCE FOR BRONCHIECTASIS. 2. COPD WITH MILD TO MODERATE UPPER LUNG EMPHYSEMA AND PROMINENT BIAPICAL PLEURAL-PARENCHYMAL SCARRIN G REDEMONSTRATED. 3. MILD TO MODERATE DIFFUSE BRONCHIAL WALL THICKENING, INCREASED FROM 2014. THIS COULD REPRESENT A NV OMINENT COMPONENT OF CHRONIC BRONCHITIS OR SUPERIMPOSED ACUTE BRONCHITIS. 4. STABLE MILD ANEURYSM AORTIC ROOT AT 4.2 CM.
[2020-08-19 17:54] LABS: Glucose,Whole Blood 184 mg/dL (75-99)
[2020-08-19] MEDS: LACTATED RINGERS 1,000 ML IV SCH (20:04)
[2020-08-19] MEDS: LATANOPROST 0.005% OPHTH DROPS 2.5 ML BTL LEFT EYE SCH (20:20)
[2020-08-19 20:33] LABS: Glucose,Whole Blood 171 mg/dL (75-99)
[2020-08-20] MEDS: methylPREDNISolone SOD SUCCI 125 MG/2 ML VIAL IV SCH ×4 (01:36→20:23)
[2020-08-20 07:05] LABS: Glucose,Whole Blood 167 mg/dL (75-99)
[2020-08-20] MEDS: IPRATROPIUM-ALBUTEROL 3 ML NEB INHALATION SCH ×4 (07:36→21:54)
[2020-08-20] MEDS: BUDESONIDE 1 MG/2 ML NEBU INHALATION SCH ×2 (07:36→21:54)
[2020-08-20] MEDS: FORMOTEROL FUMARATE 20 MCG/2 ML NEBU INHALATION SCH ×2 (07:36→21:54)
[2020-08-20] MEDS: INSULIN ASPART (NovoLOG) 100 UNIT/ML VIAL SQ SCH ×4 (08:59→20:29)
[2020-08-20] MEDS: VIT A,C & E-LUTEIN-MINERALS 1 EACH TAB PO SCH ×2 (08:59→20:22)
[2020-08-20] MEDS: LEVOFLOXACIN 750 MG TAB PO SCH (09:00)
[2020-08-20] MEDS: CHOLECALCIFEROL 25 MCG (1000 IU) TABLET PO SCH (09:00)
[2020-08-20] MEDS: GABAPENTIN 100 MG CAP PO SCH (09:01)
[2020-08-20] MEDS: SPIRONOLACTONE 25 MG TAB PO SCH (09:01)
[2020-08-20] MEDS: MULTIVITAMINS, THERA 1 EACH TAB PO SCH (09:02)
[2020-08-20] MEDS: FUROSEMIDE 40 MG TAB PO SCH (09:02)
[2020-08-20] MEDS: PANTOPRAZOLE 40 MG TABLET PO SCH (09:02)
[2020-08-20] MEDS: HEPARIN SODIUM,PORCINE/PF 5,000 UNIT/0.5 ML SYRINGE SQ SCH ×2 (09:02→20:23)
--- NOTE | 2020-08-20 11:01 | P.PN ---
Subjective Progress Note Date: 08/20/20 Principal diagnosis: Shortness of breath 65-year-old male patient presented to [facility] department with multiple complaints. The patient's main complaint was abdominal pain that started in his left lower quadrant at around 8:00 in the admission.. No vomiting. No emesis. No diar dariusz. He was also having some increased dyspnea, increased cough and chest tightness and wheezing which is typical for his underlying COPD exacerbation. For that, the patient came into the emergency department and was hospitalized. The patient otherwise was afebrile hemodynamically stable. His EKG showed a normal sinus rhythm. His vitals were stable. His CMP and CBC were unremarkable. His lactic acid level was at 2.2. Amylase and lipase were nonspecific. CAT scan of the abdomen and pelvis was done and it showed no acute abnormalities. He was hospitalized for an acute COPD exacerbation. He was given breathing treatments. He was given 2 DuoNeb treatments in the emergency department and he was started also on IV Solu-Medrol. His chest x-ray showed some pulmonary vascular congestion. His proBNP level was 320. On 08/16/2020 patient seen in follow-up on medical surgical floor. He is sitting up in the bed, he states he is feeling better, he is on room air, his pulse ox is 94-97%. He is mild swelling in his lower extremities, but overall reports improvement with his breathing. No fever or chills, he is still however very wheezy. Remains on IV Solu-Medrol 40 mg every 8 hours, Levaquin, and breathing treatments. On 08/17/2020 patient seen in follow-up on medical surgical floor. He states he didn't feel much improvement in terms of his wheezing and shortness of breath. He sitting up on the edge of the bed, appears to be in no acute distress, room air pulse ox is 94%, he is afebrile, hemodynamically stable, reports no chest discomfort, no fever or chills. On physical exam patient's lung sounds are positive for scattered wheezes. In patient is still very much bronchospastic. He remains on IV Solu-Medrol he is on Levaquin, and breathing treatments. On 08/18/2020 patient seen in follow-up on medical surgical floor, still coughing, still quite wheezy, and patient has been slow to improve. He remains on IV Solu-Medrol, currently 40 mg every 8 hours, Levaquin, nebulized bronchodilators, and daily dose of Lasix was added yesterday. His chest x-ray yesterday showed no acute process, and underlying emphysema. His echocardiogram from this admission showed improved LV function, with EF of 55-60% which is improved from was previous echocardiogram in August 2019 that showed EF of 40-45%. Patient is on room air, pulse ox is 90%, hemodynamically stable, no fever or chills. Sputum culture has shown no growth On 08/19/2020 patient seen in follow-up on medical surgical floor. He has been very slow to improve, still coughing, still wheezing, despite maximizing his medical treatment, his been afebrile. Vital signs have been stable, he is on room air, today's labs have been reviewed, white blood cell count is 11.7, hemoglobin is 13.3, sodium is 134, chloride is 93, CO2 34, and renal profile was within normal limits. Remains on Levaquin, IV steroids, and nebulized bronchodilators. His follow-up chest x-ray showed no acute process. We discus sed possibility of bronchoscopy with BAL with him yesterday to which he was agreeable and we'll place the patient on the schedule for tomorrow. On 08/20/2020 patient is seen in follow-up on medical surgical floor. We place the patient on the schedule for bronchoscopy with BAL however we were told that they would be no spot available for the procedure in the endoscopy suite until later in the afternoon, likely after 3 PM. We canceled the procedure, we fed the patient. He is sitting up comfortably, breathing comfortably, he is on room air, pulse ox is 94%, still has a congested cough, he did produce some sputum for culture, which showed no growth, he had a high resolution CT of the chest y esterday, which showed no specific findings of interstitial lung disease, and no evidence for bronchiectasis. He did not COPD with mild to moderate upper lobe emphysema and prominent biapical scarring. Mild to moderate diffuse bronchial wall thickening which has increased from his most previous computed tomography scan from 2014 that could represent chronic bronchitis or superimposed acute bronchitis, and stable mild aortic root aneurysm at 4.2 cm. Patient remains on antibiotics 60 g every 6 hours, antibiotics, and bronchodilators. Objective - Vital Signs Vital signs: Vital Signs Temp 98.4 F 08/20/20 07:00 Pulse 65 08/20/20 08:04 Resp 18 08/20/20 07:00 BP 125/65 08/20/20 07:00 Pulse Ox 94 L 08/20/20 07:00 Intake & Output 08/19/20 08/20/20 08/20/20 18:59 06:59 18:59 Intake Total 500 160 Balance 500 160 Weight 97.7 kg 97 kg Intake: IV 160 Lactated Ringers 1,000 ml 160 @ 20 mls/hr IV .Q24H [facility] Rx#:[id number] Oral 500 Other: Voiding Method Toilet Toilet # Voids 4 - Exam GENERAL EXAM: Alert, very pleasant, 65-year-old white male, sitting up in bed, on room air, with pulse ox of 94% comfortable in no apparent distress. HEAD: Normocephalic/atraumatic. EYES: Normal reaction of pupils, equal size. Conjunctiva pink, sclera white. NOSE: Clear with pink turbinates. THROAT: No erythema or exudates. NECK: No masses, no JVD, no thyroid enlargement, no adenopathy. CHEST: No chest wall deformity. Symmetrical expansion. LUNGS: Equal air entry with diffuse wheezes CVS: Regular rate and rhythm, normal S1 and S2, no gallops, no murmurs, no rubs ABDOMEN: Soft, nontender. No hepatosplenomegaly, normal bowel sounds, no guarding or rigidity. EXTREMITIES: No clubbing, mild nonpitting edema no cyanosis, 2+ pulses and upper and lower extremities. MUSCULOSKELETAL: Muscle strength and tone normal. SPINE: No scoliosis or deformity SKIN: No rashes CENTRAL NERVOUS SYSTEM: Alert and oriented -3. No focal deficits, tone is normal in all 4 extremities. PSYCHIATRIC: Alert and oriented -3. Appropriate affect. Intact judgment and insight. - Labs CBC & Chem 7: 08/19/20 08:58 08/19/20 08:58 Labs: Abnormal Lab Results - Last 24 Hours (Table) 08/19/20 08/19/20 08/19/20 Range/Units 12:03 17:53 20:32 POC Glucose (mg/dL) 119 H 184 H 171 H (75-99) mg/dL 08/20/20 Range/Units 07:03 POC Glucose (mg/dL) 167 H (75-99) mg/dL Assessment and Plan Plan: Assessment: 1. Acute COPD exacerbation with secondary shortness of breath. On examination, the patient is extensively bronchospastic and wheezy. No clear indication of any congestion heart failure. Rule out tracheal bronchitis.note that the patient also tested negative for COVID-19. Has not received vaccinations. 2. history of atrial fibrillation currently in a normal sinus rhythm. 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 ProBNP level is not elevated. This is based on echocardiogram that was done in 2019. He does have 4. previous hospitalization for acute exacerbation of chronic obstructive pulmonary disease, status post bronchoscopies with BAL 2, and bronchial lavage performed on 09/01/2019 showed evidence of pseudomonas aeruginosa, and Klebsiella oxytoca, and Jamila albicans, patient was discharged home on 09/04/2019 on oral course of Levaquin 5. Glaucoma 6. Herring's esophagus 7. Previous history of tobacco use Plan: Had to cancel a bronchoscopy with BAL today as there was no opening in the endoscopy until late this afternoon Continue medical treatment Sputum culture has shown no growth Vital signs are stable Continue antibiotics bronchodilators and steroids We'll continue to follow I performed a history & physical examination of the patient and discussed their management with my nurse practitioner, Luana Arcos. I reviewed the nurse practitioner's note and agree with the documented findings and plan of care. Lung sounds are positive for diffuse wheezes throughout the lung malagon. The findings and the impression was discussed with the patient. I attest to the documentation by the nurse practitioner. Time with Patient: Less than 30
[2020-08-20 11:24] LABS: Glucose,Whole Blood 161 mg/dL (75-99)
--- NOTE | 2020-08-20 12:18 | P.PN ---
Subjective Progress Note Date: 08/20/20 This is a 65-year-old male who was recently admitted with shortness of breath and possible COPD exacerbation along with acute purulent tracheobronchitis as well as congestive heart failure acute exacerbation and is being closely monitored. Patient continues on IV Lasix with cardiology following as well as breathing inhalational treatments and IV steroids. Pulmonary is also following closely. Patient continues to be dyspneic with exertion and is currently sitting up at the site of the bed on room air. Patient underwent CT abdomen and pelvis which was resulting in no abnormalities and lab work shows odium is 135 with a potassium of 3.8 and creatinine is within normal limits at 0.9. Blood sugars variable and will continue with current regimen. 08/17/2020 Patient is seen and evaluated this morning and follow-up continues to be on Levaquin along with breathing inhalational treatments and IV steroids and will continue at this time. Pulmonary and cardiology following and patient has been resumed on home dose of oral Lasix and will continue. Recommend compression stockings and elevating lower extremities while at rest. Patient does sit at the side of the bed with legs being dependent and did discuss about elevating extremities. Patient continues to have audible expiratory wheezing noted with a cough and will continue current medication regimen. Sputum culture shows normal respiratory nalini with no aureus or aeruginosa recovered. Patient still having dyspnea on exertion. 08/18/2020 Patient is seen in follow-up this morning continues to be extremely bronchospastic with audible wheezing noted on exam. Patient does having multiple coughing spells and increasing dyspnea with exertion. Pulmonary following closely and have increased IV steroids to every 6 and will continue with breathing treatments. Will continue to monitor for another 24 hours and if no improvement will have bronchoscopy on Sunday. Will repeat a.m. labs and monitor closely. 08/19/2020 Patient is seen this morning with expiratory audible wheezes on exam although slightly improved but continues on IV steroids every 6 hours with pulmonary following closely. Paient also continues with breathing inhalational treatments and oral antibiotics in the form of Levaquin. Patient is very slow to improve and plans are for bronchoscopy with BAL in the morning. Will await report. Patient underwent chest CT which is pending at this time. 08/20/2020 Patient is seen this morning with no acute overnight issues. Patient was tentatively scheduled for bronchoscopy with BAL with pulmonary today although no available space in the OR for procedure and will likely be performed on Sunday. Patient continues on oral antibiotics along with breathing inhalational treatments and continued IV steroids. Patient continues to be bronchospastic and audible wheezing continue to be noted on exam. Patient does have a cough and continues with frequent coughing spells and instructed the patient to expectorate phlegm if production occurs. Patient is on room air and states he does feel slightly more dyspneic when getting up and walking around. Patient denies chest pain or palpitations. Tolerating diet with no reports of nausea or vomiting noted. Denies abdominal discomfort. Review of systems: Constitutional: No reports of fatigue, fever, or chills Cardiovascular: No reports of chest pain or palpitations Respiratory: Reports continued shortness of breath and minimal cough with no phlegm production, reports coughing spells as well GI: No reports of nausea, vomiting, or diarrhea : No reports of dysuria or retention Neurovascular: No reports of weakness or numbness All medications have been reviewed Objective - Vital Signs Vital signs: Vital Signs Temp 98.4 F 08/20/20 07:00 Pulse 65 08/20/20 08:04 Resp 18 08/20/20 07:00 BP 125/65 08/20/20 07:00 Pulse Ox 94 L 08/20/20 07:00 Intake & Output 08/19/20 08/20/20 08/20/20 18:59 06:59 18:59 Intake Total 500 160 Balance 500 160 Weight 97.7 kg 97 kg Intake: IV 160 Lactated Ringers 1,000 ml 160 @ 20 mls/hr IV .Q24H [facility] Rx#:[id number] Oral 500 Other: Voiding Method Toilet Toilet # Voids 4 - Exam Gen: This is a 65-year-old male sitting at the side of the bed awake, alert and oriented 3, well-developed, well-nourished. HEENT: Head is atraumatic, normocephalic. Pupils equal, round. Sclerae is anicteric. NECK: Supple. No JVD. No lymphadenopathy. No thyromegaly. LUNGS: Diminished breath sounds bilaterally with scattered rhonchi and expiratory wheezing noted throughout. Coughing throughout exam and bronchospastic. No intercostal retractions. HEART: S1, S2 are muffled ABDOMEN: Soft. Obese. Bowel sounds are present. No masses. No tenderness. EXTREMITIES: No pedal edema. No calf tenderness. NEUROLOGICAL: Patient is awake, alert and oriented x3. Cranial nerves 2 through 12 are grossly intact. - Labs CBC & Chem 7: 08/19/20 08:58 08/19/20 08:58 Labs: Abnormal Lab Results - Last 24 Hours (Table) 08/19/20 08/19/20 08/19/20 Range/Units 12:03 17:53 20:32 POC Glucose (mg/dL) 119 H 184 H 171 H (75-99) mg/dL 08/20/20 Range/Units 07:03 POC Glucose (mg/dL) 167 H (75-99) mg/dL Assessment and Plan Assessment: Shortness of breath, multifactorial with COPD exacerbation with acute purulent tracheobronchitis as well as congestive heart failure acute exacerbation with acute on chronic systolic dysfunction ejection fraction 40-45% History of paroxysmal atrial fibrillation history of COPD history of glaucoma history of degenerative joint disease elevated amylase without any evidence of pancreatitis on the computed tomography scan history of Herring's esophagus hyponatremia, chronic Anemia, normocytic anemia of chronic disease Elevated plasma lactic acid COVID-19 negative Full code Plan: Recommend to continue with current medications and symptomatic treatment. Patient will continue on bronchodilators along with IV steroids with pulmonary following. IV steroids and continued every 6 hours as patient continues to be wheezy and bronchospastic on exam. Recommend compression stockings to lower extremities or Timur wraps from the toes up to the knees and instructed the patient to elevate lower extremities while at rest. Patient to continue on antibiotics. Sputum culture showing normal nalini. Encourage the patient to increase activity as tolerated. Patient underwent 2-D echo showing moderate concentric left ventricular hypertrophy with overall LV systolic function is normal with an EF of 55-60% with some mild tricuspid regurgitation present. This is an improvement in EF from previous 2-D echo. Patient was tentatively scheduled for bronchoscopy with BAL with pulmonary this morning although there are no available spaces in the OR and will likely be done on Sunday.
[2020-08-20] MEDS: LACTATED RINGERS 1,000 ML IV SCH (15:13)
[2020-08-20 17:06] LABS: Glucose,Whole Blood 206 mg/dL (75-99)
[2020-08-20 20:17] LABS: Glucose,Whole Blood 145 mg/dL (75-99)
[2020-08-20] MEDS: LATANOPROST 0.005% OPHTH DROPS 2.5 ML BTL LEFT EYE SCH (20:22)
[2020-08-20] MEDS: Acetaminophen-Codeine 300-30mg TAB PO PRN (20:22)
[2020-08-21] MEDS: methylPREDNISolone SOD SUCCI 125 MG/2 ML VIAL IV SCH ×4 (02:07→19:18)
[2020-08-21 07:27] LABS: Glucose,Whole Blood 125 mg/dL (75-99)
[2020-08-21] MEDS: BUDESONIDE 1 MG/2 ML NEBU INHALATION SCH ×2 (07:43→20:51)
[2020-08-21] MEDS: IPRATROPIUM-ALBUTEROL 3 ML NEB INHALATION SCH ×4 (07:43→20:51)
[2020-08-21] MEDS: FORMOTEROL FUMARATE 20 MCG/2 ML NEBU INHALATION SCH ×2 (07:43→20:51)
[2020-08-21] MEDS: INSULIN ASPART (NovoLOG) 100 UNIT/ML VIAL SQ SCH ×4 (08:27→20:44)
[2020-08-21] MEDS: PANTOPRAZOLE 40 MG TABLET PO SCH (08:39)
[2020-08-21] MEDS: CHOLECALCIFEROL 25 MCG (1000 IU) TABLET PO SCH (08:39)
[2020-08-21] MEDS: GABAPENTIN 100 MG CAP PO SCH (08:39)
[2020-08-21] MEDS: SPIRONOLACTONE 25 MG TAB PO SCH (08:39)
[2020-08-21] MEDS: FUROSEMIDE 40 MG TAB PO SCH (08:39)
[2020-08-21] MEDS: MULTIVITAMINS, THERA 1 EACH TAB PO SCH (08:39)
[2020-08-21] MEDS: VIT A,C & E-LUTEIN-MINERALS 1 EACH TAB PO SCH ×2 (08:40→20:44)
[2020-08-21] MEDS: LEVOFLOXACIN 750 MG TAB PO SCH (08:40)
[2020-08-21] MEDS: HEPARIN SODIUM,PORCINE/PF 5,000 UNIT/0.5 ML SYRINGE SQ SCH ×2 (08:40→19:17)
--- NOTE | 2020-08-21 11:33 | P.PN ---
Subjective Progress Note Date: 08/21/20 65-year-old male patient presented to [facility] department with multiple complaints. The patient's main complaint was abdominal pain that started in his left lower quadrant at around 8:00 in the admission.. No vomiting. No emesis. No diarrhea. He was also having some increased dyspnea, increased cough and chest tightness and wheezing which is typical for his underlying COPD exacerbation. For that, the patient came into the emergency department and was hospitalized. The patient otherwise was afebrile hemodynamically stable. His EKG showed a normal sinus rhythm. His vitals were stable. His CMP and CBC were unremarkable. His lactic acid level was at 2.2. Amylase and lipase were nonspecific. CAT scan of the abdomen and pelvis was done and it showed no acute abnormalities. He was hospitalized for an acute COPD exacerbation. He was given breathing treatments. He was given 2 DuoNeb treatments in the emergency department and he was started also on IV Solu-Medrol. His chest x-ray showed some pulmonary vascular congestion. His proBNP level was 320. On 08/16/2020 patient seen in follow-up on medical surgical floor. He is sitting up in the bed, he states he is feeling better, he is on room air, his pulse ox is 94-97%. He is mild swelling in his lower extremities, but overall reports improvement with his breathing. No fever or chills, he is still however very wheezy. Remains on IV Solu-Medrol 40 mg every 8 hours, Levaquin, and breathing treatments. On 08/17/2020 patient seen in follow-up on medical surgical floor. He states he didn't feel much improvement in terms of his wheezing and shortness of breath. He sitting up on the edge of the bed, appears to be in no acute distress, room air pulse ox is 94%, he is afebrile, hemodynamically stable, reports no chest discomfort, no fever or chills. On physical exam patient's lung sounds are positive for scattered wheezes. In patient is still very much bronchospastic. He remains on IV Solu-Medrol he is on Levaquin, and breathing treatments. On 08/18/2020 patient seen in follow-up on medical surgical floor, still coughing, still quite wheezy, and patient has been slow to improve. He remains on IV Solu-Medrol, currently 40 mg every 8 hours, Levaquin, nebulized bronchodilators, and daily dose of Lasix was added yesterday. His chest x-ray yesterday showed no acute process, and underlying emphysema. His echocardiogram from this admission showed improved LV function, with EF of 55-60% which is improved from was previous echocardiogram in August 2019 that showed EF of 40-45%. Patient is on room air, pulse ox is 90%, hemodynamically stable, no fever or chills. Sputum culture has shown no growth On 08/19/2020 patient seen in follow-up on medical surgical floor. He has been very slow to improve, still coughing, still wheezing, despite maximizing his medical treatment, his been afebrile. Vital signs have been stable, he is on room air, today's labs have been reviewed, white blood cell count is 11.7, hemoglobin is 13.3, sodium is 134, chloride is 93, CO2 34, and renal profile was within normal limits. Remains on Levaquin, IV steroids, and nebulized bronchodilators. His follow-up chest x-ray showed no acute process. We discussed possibility of bronchoscopy with BAL with him yesterday to which he was agreeable and we'll place the patient on the schedule for tomorrow. On 08/20/2020 patient is seen in follow-up on medical surgical floor. We place the patient on the schedule for bronchoscopy with BAL however we were told that they would be no spot available for the procedure in the endoscopy suite until later in the afternoon, likely after 3 PM. We canceled the procedure, we fed the patient. He is sitting up comfortably, breathing comfortably, he is on room air, pulse ox is 94%, still has a congested cough, he did produce some sputum for culture, which showed no growth, he had a high resolution CT of the chest yesterday, which showed no specific findings of interstitial lung disease, and no evidence for bronchiectasis. He did not COPD with mild to moderate upper lobe emphysema and prominent biapical scarring. Mild to moderate diffuse bronchial wall thickening which has increased from his most previous computed tomography scan from 2014 that could represent chronic bronchitis or superimposed acute bronchitis, and stable mild aortic root aneurysm at 4.2 cm. Patient remains on antibiotics 60 g every 6 hours, antibiotics, and bronchodilators. The patient is seen today 08/21/2020 follow-up on the regular medical floor. He is currently sitting up in bed. Awake and alert in no acute distress. Still with a cough but is quite dry at the moment. Denies any worsening shortness of breath. Still some dyspnea on exertion. Still some wheezing. He is maintaining good O2 saturations in the mid 90s on room air. He is afebrile. Hemodynamically stable. Sputum culture reveals no growth. Blood glucose 125. He remains on DuoNeb inhalations, Pulmicort and Perforomist inhalations, IV Solu-Medrol. Empiric antibiotics in the form of Levaquin. Objective - Vital Signs Vital signs: Vital Signs Temp 98.0 F 08/21/20 07:25 Pulse 90 08/21/20 11:26 Resp 16 08/21/20 08:00 BP 124/66 08/21/20 07:25 Pulse Ox 96 08/21/20 07:25 Intake & Output 08/20/20 08/21/20 08/21/20 18:59 06:59 18:59 Weight 97.4 kg Other: Voiding Method Toilet Toilet Toilet # Voids 1 - Exam GENERAL EXAM: Alert, active, 65-year-old gentleman, on room air, comfortable in no apparent distress. HEAD: Normocephalic. EYES: Normal reaction of pupils, equal size. NOSE: Clear with pink turbinates. THROAT: No erythema or exudates. NECK: No masses, no JVD. CHEST: No chest wall deformity. LUNGS: Equal air entry with end expiratory wheeze, diminished CVS: S1 and S2 normal with no audible murmur, regular rhythm. ABDOMEN: No hepatosplenomegaly, normal bowel sounds, no guarding or rigidity. SPINE: No scoliosis or deformity SKIN: No rashes CENTRAL NERVOUS SYSTEM: No focal deficits, tone is normal in all 4 extremities. EXTREMITIES: There is no peripheral edema. No clubbing, no cyanosis. Peripheral pulses are intact. - Labs CBC & Chem 7: 08/19/20 08:58 08/19/20 08:58 Labs: Abnormal Lab Results - Last 24 Hours (Table) 08/20/20 08/20/20 08/21/20 Range/Units 17:04 20:16 07:25 POC Glucose (mg/dL) 206 H 145 H 125 H (75-99) mg/dL Assessment and Plan Assessment: 1 Acute COPD exacerbation with secondary shortness of breath. On examination, the patient is extensively bronchospastic and wheezy. No clear indication of any congestion heart failure. Rule out tracheal bronchitis.note that the patient also tested negative for COVID-19. Has not received vaccinations. 2 History of atrial fibrillation currently in a normal sinus rhythm. 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 ProBNP level is not elevated. This is based on echocardiogram that was done in 2019. He does have 4 Previous hospitalization for acute exacerbation of chronic obstructive pulmonary disease, status post bronchoscopies with BAL 2, and bronchial lavage performed on 09/01/2019 showed evidence of pseudomonas aeruginosa, and Klebsiella oxytoca, and Jamila albicans, patient was discharged home on 09/04/2019 on oral course of Levaquin 5 Glaucoma 6 Herring's esophagus 7 Previous history of tobacco use Plan: The patient was seen by Dr. Watkins Improved but not quite back to baseline Continue the current treatment plan We'll continue to follow I, the cosigning physician, performed a history & physical examination of the patient. Lungs sounds bilateral end expiratory wheeze. Maintaining good O2 saturations in the 90s on room air. I discussed the assessment and plan of care with my nurse practitioner, Brooke Apodaca. I attest to the above note as dictated by her.
[2020-08-21 11:55] LABS: Glucose,Whole Blood 148 mg/dL (75-99)
[2020-08-21 17:24] LABS: Glucose,Whole Blood 153 mg/dL (75-99)
[2020-08-21] MEDS: LACTATED RINGERS 1,000 ML IV SCH (17:53)
[2020-08-21] MEDS: Acetaminophen-Codeine 300-30mg TAB PO PRN (19:19)
[2020-08-21 20:26] LABS: Glucose,Whole Blood 166 mg/dL (75-99)
[2020-08-21] MEDS: LATANOPROST 0.005% OPHTH DROPS 2.5 ML BTL LEFT EYE SCH (20:44)
[2020-08-22] MEDS: methylPREDNISolone SOD SUCCI 125 MG/2 ML VIAL IV SCH ×4 (02:10→19:57)
[2020-08-22] MEDS: IPRATROPIUM-ALBUTEROL 3 ML NEB INHALATION SCH ×4 (07:22→21:38)
[2020-08-22] MEDS: FORMOTEROL FUMARATE 20 MCG/2 ML NEBU INHALATION SCH ×2 (07:22→21:48)
[2020-08-22] MEDS: BUDESONIDE 1 MG/2 ML NEBU INHALATION SCH ×2 (07:22→21:38)
[2020-08-22 07:38] LABS: Glucose,Whole Blood 137 mg/dL (75-99)
[2020-08-22] MEDS: PANTOPRAZOLE 40 MG TABLET PO SCH (08:27)
[2020-08-22] MEDS: FUROSEMIDE 40 MG TAB PO SCH (08:27)
[2020-08-22] MEDS: INSULIN ASPART (NovoLOG) 100 UNIT/ML VIAL SQ SCH ×3 (08:27→18:05)
[2020-08-22] MEDS: CHOLECALCIFEROL 25 MCG (1000 IU) TABLET PO SCH (08:28)
[2020-08-22] MEDS: GABAPENTIN 100 MG CAP PO SCH (08:28)
[2020-08-22] MEDS: HEPARIN SODIUM,PORCINE/PF 5,000 UNIT/0.5 ML SYRINGE SQ SCH ×2 (08:28→19:57)
[2020-08-22] MEDS: MULTIVITAMINS, THERA 1 EACH TAB PO SCH (08:28)
[2020-08-22] MEDS: SPIRONOLACTONE 25 MG TAB PO SCH (08:28)
[2020-08-22] MEDS: VIT A,C & E-LUTEIN-MINERALS 1 EACH TAB PO SCH ×2 (09:20→19:58)
[2020-08-22] MEDS: LEVOFLOXACIN 750 MG TAB PO SCH (09:21)
[2020-08-22 12:01] LABS: Glucose,Whole Blood 175 mg/dL (75-99)
--- NOTE | 2020-08-22 12:03 | P.PN ---
Subjective Progress Note Date: 08/22/20 65-year-old male patient presented to [facility] department with multiple complaints. The patient's main complaint was abdominal pain that started in his left lower quadrant at around 8:00 in the admission.. No vomiting. No emesis. No diarrhea. He was also having some increased dyspnea, increased cough and chest tightness and wheezing which is typical for his underlying COPD exacerbation. For that, the patient came into the emergency department and was hospitalized. The patient otherwise was afebrile hemodynamically stable. His EKG showed a normal sinus rhythm. His vitals were stable. His CMP and CBC were unremarkable. His lactic acid level was at 2.2. Amylase and lipase were nonspecific. CAT scan of the abdomen and pelvis was done and it showed no acute abnormalities. He was hospitalized for an acute COPD exacerbation. He was given breathing treatments. He was given 2 DuoNeb treatments in the emergency department and he was started also on IV Solu-Medrol. His chest x-ray showed some pulmonary vascular congestion. His proBNP level was 320. On 08/16/2020 patient seen in follow-up on medical surgical floor. He is sitting up in the bed, he states he is feeling better, he is on room air, his pulse ox is 94-97%. He is mild swelling in his lower extremities, but overall reports improvement with his breathing. No fever or chills, he is still however very wheezy. Remains on IV Solu-Medrol 40 mg every 8 hours, Levaquin, and breathing treatments. On 08/17/2020 patient seen in follow-up on medical surgical floor. He states he didn't feel much improvement in terms of his wheezing and shortness of breath. He sitting up on the edge of the bed, appears to be in no acute distress, room air pulse ox is 94%, he is afebrile, hemodynamically stable, reports no chest discomfort, no fever or chills. On physical exam patient's lung sounds are positive for scattered wheezes. In patient is still very much bronchospastic. He remains on IV Solu-Medrol he is on Levaquin, and breathing treatments. On 08/18/2020 patient seen in follow-up on medical surgical floor, still coughing, still quite wheezy, and patient has been slow to improve. He remains on IV Solu-Medrol, currently 40 mg every 8 hours, Levaquin, nebulized bronchodilators, and daily dose of Lasix was added yesterday. His chest x-ray yesterday showed no acute process, and underlying emphysema. His echocardiogram from this admission showed improved LV function, with EF of 55-60% which is improved from was previous echocardiogram in August 2019 that showed EF of 40-45%. Patient is on room air, pulse ox is 90%, hemodynamically stable, no fever or chills. Sputum culture has shown no growth On 08/19/2020 patient seen in follow-up on medical surgical floor. He has been very slow to improve, still coughing, still wheezing, despite maximizing his medical treatment, his been afebrile. Vital signs have been stable, he is on room air, today's labs have been reviewed, white blood cell count is 11.7, hemoglobin is 13.3, sodium is 134, chloride is 93, CO2 34, and renal profile was within normal limits. Remains on Levaquin, IV steroids, and nebulized bronchodilators. His follow-up chest x-ray showed no acute process. We discussed possibility of bronchoscopy with BAL with him yesterday to which he was agreeable and we'll place the patient on the schedule for tomorrow. On 08/20/2020 patient is seen in follow-up on medical surgical floor. We place the patient on the schedule for bronchoscopy with BAL however we were told that they would be no spot available for the procedure in the endoscopy suite until later in the afternoon, likely after 3 PM. We canceled the procedure, we fed the patient. He is sitting up comfortably, breathing comfortably, he is on room air, pulse ox is 94%, still has a congested cough, he did produce some sputum for culture, which showed no growth, he had a high resolution CT of the chest yesterday, which showed no specific findings of interstitial lung disease, and no evidence for bronchiectasis. He did not COPD with mild to moderate upper lobe emphysema and prominent biapical scarring. Mild to moderate diffuse bronchial wall thickening which has increased from his most previous computed tomography scan from 2014 that could represent chronic bronchitis or superimposed acute bronchitis, and stable mild aortic root aneurysm at 4.2 cm. Patient remains on antibiotics 60 g every 6 hours, antibiotics, and bronchodilators. The patient is seen today 08/21/2020 follow-up on the regular medical floor. He is currently sitting up in bed. Awake and alert in no acute distress. Still with a cough but is quite dry at the moment. Denies any worsening shortness of breath. Still some dyspnea on exertion. Still some wheezing. He is maintaining good O2 saturations in the mid 90s on room air. He is afebrile. Hemodynamically stable. Sputum culture reveals no growth. Blood glucose 125. He remains on DuoNeb inhalations, Pulmicort and Perforomist inhalations, IV Solu-Medrol. Empiric antibiotics in the form of Levaquin. The patient is seen today 08/22/2020 in follow-up on the regular medical floor. He is awake and alert in no acute distress. Continues with a loose nonproductive cough. Improved but not quite back to his baseline. Maintaining O2 saturations in the mid 90s on room air. He's been afebrile. Hemodynamically stable. Sputum culture revealed no growth. Blood glucose 137. He remains on DuoNeb inhalations, Pulmicort and Perforomist inhalations, IV Solu-Medrol. Antibiotics in the form of Levaquin Objective - Vital Signs Vital signs: Vital Signs Temp 98.0 F 08/22/20 07:25 Pulse 80 08/22/20 11:08 Resp 16 08/22/20 08:00 BP 131/51 08/22/20 07:25 Pulse Ox 95 08/22/20 07:25 Intake & Output 08/21/20 08/22/20 08/22/20 18:59 06:59 18:59 Weight 96.9 kg Other: Voiding Method Toilet Toilet Toilet # Voids 1 - Exam GENERAL EXAM: Alert, active, 65-year-old gentleman, on room air, comfortable in no apparent distress. HEAD: Normocephalic. EYES: Normal reaction of pupils, equal size. NOSE: Clear with pink turbinates. THROAT: No erythema or exudates. NECK: No masses, no JVD. CHEST: No chest wall deformity. LUNGS: Equal air entry with end expiratory wheeze, diminished CVS: S1 and S2 normal with no audible murmur, regular rhythm. ABDOMEN: No hepatosplenomegaly, normal bowel sounds, no guarding or rigidity. SPINE: No scoliosis or deformity SKIN: No rashes CENTRAL NERVOUS SYSTEM: No focal deficits, tone is normal in all 4 extremities. EXTREMITIES: There is no peripheral edema. No clubbing, no cyanosis. Peripheral pulses are intact. - Labs CBC & Chem 7: 08/19/20 08:58 08/19/20 08:58 Labs: Abnormal Lab Results - Last 24 Hours (Table) 08/21/20 08/21/20 08/21/20 Range/Units 11:53 17:23 20:24 POC Glucose (mg/dL) 148 H 153 H 166 H (75-99) mg/dL 08/22/20 Range/Units 07:26 POC Glucose (mg/dL) 137 H (75-99) mg/dL Assessment and Plan Assessment: 1 Acute COPD exacerbation with secondary shortness of breath. On examination, the patient is extensively bronchospastic and wheezy. No clear indication of any congestion heart failure. Rule out tracheal bronchitis.note that the patient also tested negative for COVID-19. Has not received vaccinations. 2 History of atrial fibrillation currently in a normal sinus rhythm. 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 ProBNP level is not elevated. This is based on echocardiogram that was done in 2019. 4 Previous hospitalization for acute exacerbation of chronic obstructive pulmonary disease, status post bronchoscopies with BAL 2, and bronchial lavage performed on 09/01/2019 showed evidence of pseudomonas aeruginosa, and Klebsiella oxytoca, and Jamila albicans, patient was discharged home on 09/04/2019 on oral course of Levaquin 5 Glaucoma 6 Herring's esophagus 7 Previous history of tobacco use Plan: The patient was seen by Dr. Watkins Continue the current treatment plan We'll make him NPO for possible bronchoscopy in the a.m. If improved and not needed he will be discharged home I, the cosigning physician, performed a history & physical examination of the patient. Lungs sounds bilateral end expiratory wheeze. Maintaining good O2 saturations in the 90s on room air. I discussed the assessment and plan of care with my nurse practitioner, Brooke Apodaca. I attest to the above note as dictated by her.
--- NOTE | 2020-08-22 16:10 | P.PN ---
Subjective Progress Note Date: 08/21/20 Principal diagnosis: Acute dyspnea Acute exacerbation COPD/ acute purulent tracheobronchitis Acute exacerbation systolic CHF 65-year-old male who was recently admitted with shortness of breath and possible COPD exacerbation along with acute purulent tracheobronchitis as well as congestive heart failure acute exacerbation and is being closely monitored. Patient continues on IV Lasix with cardiology following as well as breathing inhalational treatments and IV steroids. Pulmonary is also following closely. Patient continues to be dyspneic with exertion and is currently sitting up at the site of the bed on room air. Patient underwent CT abdomen and pelvis which was resulting in no abnormalities and lab work shows odium is 135 with a potassium of 3.8 and creatinine is within normal limits at 0.9. Blood sugars variable and will continue with current regimen. 08/21/2020 Patient is seen and evaluated in follow-up on the regular medical floor. He is currently sitting up in bed. Awake and alert in no acute distress. Still with a cough but is quite dry at the moment. Denies any worsening shortness of breath. Still some dyspnea on exertion. Still some wheezing. He is maintaining good O2 saturations in the mid 90s on room air. He is afebrile. Hemodynamically stable. Sputum culture reveals no growth. Blood glucose 125. He remains on DuoNeb inhalations, Pulmicort and Perforomist inhalations, IV Solu -Medrol. Empiric antibiotics in the form of Levaquin. Objective - Vital Signs Vital signs: Vital Signs Temp 98.0 F 08/21/20 07:25 Pulse 90 08/21/20 11:26 Resp 16 08/21/20 08:00 BP 124/66 08/21/20 07:25 Pulse Ox 96 08/21/20 07:25 Intake & Output 08/20/20 08/21/20 08/21/20 18:59 06:59 18:59 Weight 97.4 kg Other: Voiding Method Toilet Toilet Toilet # Voids 1 - Exam Gen: This is a 65-year-old male sitting at the side of the bed awake, alert and oriented 3, well-developed, well-nourished. HEENT: Head is atraumatic, normocephalic. Pupils equal, round. Sclerae is anicteric. NECK: Supple. No JVD. No lymphadenopathy. No thyromegaly. LUNGS: Diminished breath sounds bilaterally with scattered rhonchi and expiratory wheezing noted throughout. Coughing throughout exam and bronchospastic. No intercostal retractions. HEART: S1, S2 are muffled ABDOMEN: Soft. Obese. Bowel sounds are present. No masses. No tenderness. EXTREMITIES: No pedal edema. No calf tenderness. NEUROLOGICAL: Patient is awake, alert and oriented x3. Cranial nerves 2 through 12 are grossly intact. - Labs CBC & Chem 7: 08/19/20 08:58 08/19/20 08:58 Labs: Abnormal Lab Results - Last 24 Hours (Table) 08/20/20 08/20/20 08/21/20 Range/Units 17:04 20:16 07:25 POC Glucose (mg/dL) 206 H 145 H 125 H (75-99) mg/dL 08/21/20 Range/Units 11:53 POC Glucose (mg/dL) 148 H (75-99) mg/dL Assessment and Plan Assessment: Shortness of breath, multifactorial with COPD exacerbation with acute purulent tracheobronchitis as well as congestive heart failure acute exacerbation with acute on chronic systolic dysfunction ejection fraction 40-45% History of paroxysmal atrial fibrillation history of COPD history of glaucoma history of degenerative joint disease elevated amylase without any evidence of pancreatitis on the computed tomography scan history of Herring's esophagus hyponatremia, chronic Anemia, normocytic anemia of chronic disease Elevated plasma lactic acid COVID-19 negative Full code Plan: Recommend to continue with current medications and symptomatic treatment. Patient will continue on bronchodilators along with IV steroids with pulmonary following. IV steroids and continued every 6 hours as patient continues to be wheezy and bronchospastic on exam. Recommend compression stockings to lower extremities or Timur wraps from the toes up to the knees and instructed the patient to elevate lower extremities while at rest. Patient to continue on antibiotics. Sputum culture showing normal nalini. Encourage the patient to increase activity as tolerated. Patient underwent 2-D echo showing moderate concentric left ventricular hypertrophy with overall LV systolic function is normal with an EF of 55-60% with some mild tricuspid regurgitation present. This is an improvement in EF from previous 2-D echo. Patient was tentatively scheduled for bronchoscopy with BAL with pulmonary this morning although there are no available spaces in the OR and will likely be done on Sunday.
--- NOTE | 2020-08-22 16:22 | P.PN ---
Subjective Progress Note Date: 08/22/20 Principal diagnosis: Acute dyspnea Acute exacerbation COPD/ acute purulent tracheobronchitis Acute exacerbation systolic CHF 65-year-old male who was recently admitted with shortness of breath and possible COPD exacerbation along with acute purulent tracheobronchitis as well as congestive heart failure acute exacerbation and is being closely monitored. Patient continues on IV Lasix with cardiology following as well as breathing inhalational treatments and IV steroids. Pulmonary is also following closely. Patient continues to be dyspneic with exertion and is currently sitting up at the site of the bed on room air. Patient underwent CT abdomen and pelvis which was resulting in no abnormalities and lab work shows odium is 135 with a potassium of 3.8 and creatinine is within normal limits at 0.9. Blood sugars variable and will continue with current regimen. 08/21/2020 Patient is seen and evaluated in follow-up on the regular medical floor. He is currently sitting up in bed. Awake and alert in no acute distress. Still with a cough but is quite dry at the moment. Denies any worsening shortness of breath. Still some dyspnea on exertion. Still some wheezing. He is maintaining good O2 saturations in the mid 90s on room air. He is afebrile. Hemodynamically stable. Sputum culture reveals no growth. Blood glucose 125. He remains on DuoNeb inhalations, Pulmicort and Perforomist inhalations, IV Solu -Medrol. Empiric antibiotics in the form of Levaquin. 08/22/2020 Patient seen and evaluated at bedside in follow-up on the regular medical floor. He is awake and alert in no acute distress. Continues with a loose nonproductive cough. Improved but not quite back to his baseline. Maintaining O2 saturations in the mid 90s on room air. He's been afebrile. Hemodynamically stable. Sputum culture revealed no growth. Blood glucose 137. He remains on DuoNeb inhalations, Pulmicort and Perforomist inhalations, IV Solu-Medrol. Antibiotics in the form of Levaquin Pulmonary recommending to make patient nothing by mouth tonight for possible bronchoscopy tomorrow morning Objective - Vital Signs Vital signs: Vital Signs Temp 97.9 F 08/22/20 13:40 Pulse 90 08/22/20 15:32 Resp 16 08/22/20 13:40 BP 134/68 08/22/20 13:40 Pulse Ox 92 L 08/22/20 13:40 Intake & Output 08/21/20 08/22/20 08/22/20 18:59 06:59 18:59 Weight 96.9 kg Other: Voiding Method Toilet Toilet Toilet # Voids 1 - Exam Gen: This is a 65-year-old male sitting at the side of the bed awake, alert and oriented 3, well-developed, well-nourished. HEENT: Head is atraumatic, normocephalic. Pupils equal, round. Sclerae is anicteric. NECK: Supple. No JVD. No lymphadenopathy. No thyromegaly. LUNGS: Diminished breath sounds bilaterally with scattered rhonchi and expiratory wheezing noted throughout. Coughing throughout exam and bronchospastic. No intercostal retractions. HEART: S1, S2 are muffled ABDOMEN: Soft. Obese. Bowel sounds are present. No masses. No tenderness. EXTREMITIES: No pedal edema. No calf tenderness. NEUROLOGICAL: Patient is awake, alert and oriented x3. Cranial nerves 2 through 12 are grossly intact. - Labs CBC & Chem 7: 08/19/20 08:58 08/19/20 08:58 Labs: Abnormal Lab Results - Last 24 Hours (Table) 08/21/20 08/21/20 08/22/20 Range/Units 17:23 20:24 07:26 POC Glucose (mg/dL) 153 H 166 H 137 H (75-99) mg/dL 08/22/20 Range/Units 11:59 POC Glucose (mg/dL) 175 H (75-99) mg/dL Assessment and Plan Assessment: Shortness of breath, multifactorial with COPD exacerbation with acute purulent tracheobronchitis as well as congestive heart failure acute exacerbation with acute on chronic systolic dysfunction ejection fraction 40-45% History of paroxysmal atrial fibrillation history of COPD history of glaucoma history of degenerative joint disease elevated amylase without any evidence of pancreatitis on the computed tomography scan history of Herring's esophagus hyponatremia, chronic Anemia, normocytic anemia of chronic disease Elevated plasma lactic acid COVID-19 negative Full code Plan: Recommend to continue with current medications and symptomatic treatment. P atient will continue on bronchodilators along with IV steroids with pulmonary following. IV steroids and continued every 6 hours as patient continues to be wheezy and bronchospastic on exam. Recommend compression stockings to lower extremities or Timur wraps from the toes up to the knees and instructed the patient to elevate lower extremities while at rest. Patient to continue on antibiotics. Sputum culture showing normal nalini. Encourage the patient to increase activity as tolerated. Patient underwent 2-D echo showing moderate concentric left ventricular hypertrophy with overall LV systolic function is normal with an EF of 55-60% with some mild tricuspid regurgitation present. This is an improvement in EF from previous 2-D echo. Patient was tentatively scheduled for bronchoscopy with BAL with pulmonary this morning although there are no available spaces in the OR and will likely be done on Sunday.
[2020-08-22 17:16] LABS: Glucose,Whole Blood 133 mg/dL (75-99)
[2020-08-22] MEDS: LACTATED RINGERS 1,000 ML IV SCH (18:05)
[2020-08-22] MEDS: Acetaminophen-Codeine 300-30mg TAB PO PRN (19:58)
[2020-08-22] MEDS: LATANOPROST 0.005% OPHTH DROPS 2.5 ML BTL LEFT EYE SCH (19:58)
[2020-08-22 20:42] LABS: Glucose,Whole Blood 184 mg/dL (75-99)
[2020-08-23] MEDS: INSULIN ASPART (NovoLOG) 100 UNIT/ML VIAL SQ SCH ×5 (00:02→22:22)
[2020-08-23] MEDS: methylPREDNISolone SOD SUCCI 125 MG/2 ML VIAL IV SCH ×4 (02:57→21:42)
[2020-08-23 07:34] LABS: Glucose,Whole Blood 140 mg/dL (75-99)
[2020-08-23] MEDS: IPRATROPIUM-ALBUTEROL 3 ML NEB INHALATION SCH ×4 (08:05→20:59)
[2020-08-23] MEDS: FORMOTEROL FUMARATE 20 MCG/2 ML NEBU INHALATION SCH ×2 (08:05→20:59)
[2020-08-23] MEDS: BUDESONIDE 1 MG/2 ML NEBU INHALATION SCH ×2 (08:05→20:59)
[2020-08-23] MEDS: PANTOPRAZOLE 40 MG TABLET PO SCH (08:33)
[2020-08-23] MEDS: HEPARIN SODIUM,PORCINE/PF 5,000 UNIT/0.5 ML SYRINGE SQ SCH ×2 (08:33→21:43)
[2020-08-23] MEDS: CHOLECALCIFEROL 25 MCG (1000 IU) TABLET PO SCH (08:33)
[2020-08-23] MEDS: GABAPENTIN 100 MG CAP PO SCH (08:34)
[2020-08-23] MEDS: MULTIVITAMINS, THERA 1 EACH TAB PO SCH (08:34)
[2020-08-23] MEDS: VIT A,C & E-LUTEIN-MINERALS 1 EACH TAB PO SCH ×2 (08:34→21:43)
[2020-08-23] MEDS: SPIRONOLACTONE 25 MG TAB PO SCH (08:34)
[2020-08-23] MEDS: FUROSEMIDE 40 MG TAB PO SCH (08:34)
[2020-08-23 08:47] LABS: HCT 37.4 % (39.6-50.0); HGB 12.1 g/dL (13.0-17.0); MCHC 32.4 g/dL (32.0-37.0); MCV 98.9 fL (80.0-97.0); Mean Platelet Volume 9.6 fL (9.5-12.2); Platelet Count 313 X 10*3/uL (140-440); RBC 3.78 X 10*6/uL (4.40-5.60); RDW 13.1 % (11.5-14.5); WBC 14.02 X 10*3/uL (4.50-10.00)
[2020-08-23 09:46] LABS: African American GFR (CKD) 107.1 (60.0-200.0); Anion Gap 8.9 mmol/L (4.00-12.00); BUN/Creat Ratio 27.5 Ratio (12.00-20.00); Carbon Dioxide 27.1 mmol/L (21.6-31.8); Non-African American GFR(CKD) 92.4 (60.0-200.0); Potassium 3.8 mmol/L (3.5-5.5)
[2020-08-23 10:57] LABS: Basophils # (M) 0 X 10*3/uL (0.00-0.10); Eosinophils # (M) 0 X 10*3/uL (0.04-0.35); Monocytes # (M) 0.42 X 10*3/uL (0.20-1.00); Neutrophils % (M) 87 %
[2020-08-23 11:40] LABS: Glucose,Whole Blood 124 mg/dL (75-99)
[2020-08-23] MEDS ORDERED: KETAMINE 10 MG/ML 20 ML VIAL ONE (12:07)
[2020-08-23] MEDS ORDERED: LIDOCAINE 1% INJ 10MG/ML (20 ML MDV) ONE (12:07)
[2020-08-23] MEDS ORDERED: PROPOFOL 10 MG/ML 20 ML VIAL IV ONE (12:07)
[2020-08-23] MEDS ORDERED: GLYCOPYRROLATE 0.2 MG/ML 2 ML VIAL ONE (12:07)
[2020-08-23] MEDS ORDERED: LACTATED RINGERS 1,000 ML IV ONE (12:10)
--- NOTE | 2020-08-23 13:18 | P.PN ---
Subjective Progress Note Date: 08/23/20 Principal diagnosis: Shortness of breath 65-year-old male patient presented to [facility] department with multiple complaints. The patient's main complaint was abdominal pain that started in his left lower quadrant at around 8:00 in the admission.. No vomiting. No emesis. No diar dariusz. He was also having some increased dyspnea, increased cough and chest tightness and wheezing which is typical for his underlying COPD exacerbation. For that, the patient came into the emergency department and was hospitalized. The patient otherwise was afebrile hemodynamically stable. His EKG showed a normal sinus rhythm. His vitals were stable. His CMP and CBC were unremarkable. His lactic acid level was at 2.2. Amylase and lipase were nonspecific. CAT scan of the abdomen and pelvis was done and it showed no acute abnormalities. He was hospitalized for an acute COPD exacerbation. He was given breathing treatments. He was given 2 DuoNeb treatments in the emergency department and he was started also on IV Solu-Medrol. His chest x-ray showed some pulmonary vascular congestion. His proBNP level was 320. On 08/16/2020 patient seen in follow-up on medical surgical floor. He is sitting up in the bed, he states he is feeling better, he is on room air, his pulse ox is 94-97%. He is mild swelling in his lower extremities, but overall reports improvement with his breathing. No fever or chills, he is still however very wheezy. Remains on IV Solu-Medrol 40 mg every 8 hours, Levaquin, and breathing treatments. On 08/17/2020 patient seen in follow-up on medical surgical floor. He states he didn't feel much improvement in terms of his wheezing and shortness of breath. He sitting up on the edge of the bed, appears to be in no acute distress, room air pulse ox is 94%, he is afebrile, hemodynamically stable, reports no chest discomfort, no fever or chills. On physical exam patient's lung sounds are positive for scattered wheezes. In patient is still very much bronchospastic. He remains on IV Solu-Medrol he is on Levaquin, and breathing treatments. On 08/18/2020 patient seen in follow-up on medical surgical floor, still coughing, still quite wheezy, and patient has been slow to improve. He remains on IV Solu-Medrol, currently 40 mg every 8 hours, Levaquin, nebulized bronchodilators, and daily dose of Lasix was added yesterday. His chest x-ray yesterday showed no acute process, and underlying emphysema. His echocardiogram from this admission showed improved LV function, with EF of 55-60% which is improved from was previous echocardiogram in August 2019 that showed EF of 40-45%. Patient is on room air, pulse ox is 90%, hemodynamically stable, no fever or chills. Sputum culture has shown no growth On 08/19/2020 patient seen in follow-up on medical surgical floor. He has been very slow to improve, still coughing, still wheezing, despite maximizing his medical treatment, his been afebrile. Vital signs have been stable, he is on room air, today's labs have been reviewed, white blood cell count is 11.7, hemoglobin is 13.3, sodium is 134, chloride is 93, CO2 34, and renal profile was within normal limits. Remains on Levaquin, IV steroids, and nebulized bronchodilators. His follow-up chest x-ray showed no acute process. We discus sed possibility of bronchoscopy with BAL with him yesterday to which he was agreeable and we'll place the patient on the schedule for tomorrow. On 08/20/2020 patient is seen in follow-up on medical surgical floor. We place the patient on the schedule for bronchoscopy with BAL however we were told that they would be no spot available for the procedure in the endoscopy suite until later in the afternoon, likely after 3 PM. We canceled the procedure, we fed the patient. He is sitting up comfortably, breathing comfortably, he is on room air, pulse ox is 94%, still has a congested cough, he did produce some sputum for culture, which showed no growth, he had a high resolution CT of the chest y esterday, which showed no specific findings of interstitial lung disease, and no evidence for bronchiectasis. He did not COPD with mild to moderate upper lobe emphysema and prominent biapical scarring. Mild to moderate diffuse bronchial wall thickening which has increased from his most previous computed tomography scan from 2014 that could represent chronic bronchitis or superimposed acute bronchitis, and stable mild aortic root aneurysm at 4.2 cm. Patient remains on antibiotics 60 g every 6 hours, antibiotics, and bronchodilators. On 08/23/2020 patient seen in follow-up on medical surgical floor. He is awake and alert, in no acute distress, he continued to sound very congested, broncho spastic, and very slow to improve, we kept the patient nothing by mouth for bronchoscopy with BAL. Patient has been maximized on medical treatment, he continues on Solu-Medrol 60 mg every 6 hours, continues on nebulized bronchodilators, Pulmicort, Perforomist, DuoNeb. Patient was taken to the [facility] choscopy suite and underwent bronchoscopy with BAL and conscious sedation. He tolerated procedure very well, large amount of mucous plugs, and thick tenacious secretions were removed from his bronchial airways. Samples were sent for cultures. Objective - Vital Signs Vital signs: Vital Signs Temp 97.9 F 08/23/20 12:54 Pulse 110 H 08/23/20 12:54 Resp 18 08/23/20 12:54 BP 128/70 08/23/20 12:54 Pulse Ox 93 L 08/23/20 12:54 Intake & Output 08/22/20 08/23/20 08/23/20 18:59 06:59 18:59 Intake Total 300 Balance 300 Weight 95.7 kg Intake: IV 300 Other: Voiding Method Toilet Toilet - Exam GENERAL EXAM: Alert, very pleasant, 65-year-old white male, sitting up in bed, on room air, with pulse ox of 94% comfortable in no apparent distress. HEAD: Normocephalic/atraumatic. EYES: Normal reaction of pupils, equal size. Conjunctiva pink, sclera white. NOSE: Clear with pink turbinates. THROAT: No erythema or exudates. NECK: No masses, no JVD, no thyroid enlargement, no adenopathy. CHEST: No chest wall deformity. Symmetrical expansion. LUNGS: Equal air entry with diffuse wheezes CVS: Regular rate and rhythm, normal S1 and S2, no gallops, no murmurs, no rubs ABDOMEN: Soft, nontender. No hepatosplenomegaly, normal bowel sounds, no guarding or rigidity. EXTREMITIES: No clubbing, mild nonpitting edema no cyanosis, 2+ pulses and upper and lower extremities. MUSCULOSKELETAL: Muscle strength and tone normal. SPINE: No scoliosis or deformity SKIN: No rashes CENTRAL NERVOUS SYSTEM: Alert and oriented -3. No focal deficits, tone is normal in all 4 extremities. PSYCHIATRIC: Alert and oriented -3. Appropriate affect. Intact judgment and insight. - Labs CBC & Chem 7: 08/23/20 06:00 08/23/20 06:00 Labs: Abnormal Lab Results - Last 24 Hours (Table) 08/22/20 08/22/20 08/23/20 Range/Units 17:15 20:40 06:00 WBC 14.02 H (4.50-10.00) X 10*3/uL RBC 3.78 L (4.40-5.60) X 10*6/uL Hgb 12.1 L (13.0-17.0) g/dL Hct 37.4 L (39.6-50.0) % MCV 98.9 H (80.0-97.0) fL Neutrophils # (Manual) 12.20 H (2.00-8.90) X 10*3/uL Eosinophils # (Manual) 0 L (0.04-0.35) X 10*3/uL Sodium (135-145) mmol/L BUN/Creatinine Ratio (12.00-20.00) Ratio Glucose (70-110) mg/dL POC Glucose (mg/dL) 133 H 184 H (75-99) mg/dL Calcium (8.7-10.3) mg/dL 08/23/20 08/23/20 08/23/20 Range/Units 06:00 07:32 11:36 WBC (4.50-10.00) X 10*3/uL RBC (4.40-5.60) X 10*6/uL Hgb (13.0-17.0) g/dL Hct (39.6-50.0) % MCV (80.0-97.0) fL Neutrophils # (Manual) (2.00-8.90) X 10*3/uL Eosinophils # (Manual) (0.04-0.35) X 10*3/uL Sodium 133 L (135-145) mmol/L BUN/Creatinine Ratio 27.50 H (12.00-20.00) Ratio Glucose 134 H (70-110) mg/dL POC Glucose (mg/dL) 140 H 124 H (75-99) mg/dL Calcium 8.0 L (8.7-10.3) mg/dL Assessment and Plan Plan: Assessment: 1. Acute COPD exacerbation with secondary shortness of breath. On examination, the patient is extensively bronchospastic and wheezy. No clear indication of any congestion heart failure. Rule out tracheal bronchitis.note that the patient also tested negative for COVID-19. Has not received vaccinations. 2. history of atrial fibrillation currently in a normal sinus rhythm. 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 ProBNP level is not elevated. This is based on echocardiogram that was done in 2019. He does have 4. previous hospitalization for acute exacerbation of chronic obstructive pulmonary disease, status post bronchoscopies with BAL 2, and bronchial lavage performed on 09/01/2019 showed evidence of pseudomonas aeruginosa, and Klebsiella oxytoca, and Jamila albicans, patient was discharged home on 09/04/2019 on oral course of Levaquin 5. Glaucoma 6. Herring's esophagus 7. Previous history of tobacco use Plan: Patient tolerated bronchoscopy very well Samples were sent for cultures Continue IV steroids, nebulized bronchodilators Anticipate improvement in patient's symptoms of dyspnea and wheezing We'll continue to follow If there is significant improvement noted on tomorrow's exam may consider for discharge home I performed a history & physical examination of the patient and discussed their management with my nurse practitioner, Luana Arcos. I reviewed the nurse practitioner's note and agree with the documented findings and plan of care. Lung sounds are positive for diffuse wheezes throughout the lung malagon. The findings and the impression was discussed with the patient. I attest to the do cumentation by the nurse practitioner. Time with Patient: Less than 30
[2020-08-23] MEDS: LACTATED RINGERS 1,000 ML IV SCH (14:11)
[2020-08-23 16:45] LABS: Glucose,Whole Blood 216 mg/dL (75-99)
[2020-08-23 20:33] LABS: Glucose,Whole Blood 164 mg/dL (75-99)
--- NOTE | 2020-08-23 21:17 | OP ---
OPERATIVE REPORT PROCEDURE: Bronchoscopy, airway examination, therapeutic lavage, BAL, right middle lobe. OPERATORS: Dr. Cr, Dr. Arcos. DESCRIPTION: There was informed consent, there was universal timeout. The patient's procedure took place in room #30 in the endoscopy. The reason for the procedure was bronchiectasis and retained secretions. After the patient was adequately sedated and being monitored by Anesthesia, the bronchoscope was inserted through the right nostril. It passed through the right nasopharynx into the oropharynx. The hypopharynx was identified and topicalized. Anterior commissure, true cords, false cords, arytenoids, piriform sinuses, right and left valleculae and epiglottis all appeared normal. The glottic opening was topicalized. The bronchoscope was pushed through the glottic opening into the trachea. There were thick secretions noted throughout the trachea and they were saddling the tracheal glenna. Thick secretions were noted in the right and left mainstem. They were suctioned with some difficulty. In fact, I had to come out of the airway a couple of times to remove large mucus plugs. They were quite viscid and inspissated. Next, after topicalization of the right mainstem and left mainstem, the right upper lobe and its 3 segments, right middle lobe and its 2 segments, right lower lobe and its 5 segments, left upper lobe proper and its 2 segments, lingula and its 2 segments and left lower lobe and its 4 segments were evaluated. There was mild to moderate bronchitis. There were thick mucus plugs noted throughout. There was no dominant mass or tumor. There was minimal bleeding. There was some vascular prominence. The bronchoscope was then wedged into the right middle lobe. BAL took place, 30 mL was recovered. The fluid will be sent for analysis. Additional secretions were suctioned and after all secretions removed, the bronchoscope was withdrawn. The patient will be recovered. There was no immediate complication. The fluid analysis will be sent to the laboratory. MMODL / IJN: [id number] /
[2020-08-23] MEDS: LATANOPROST 0.005% OPHTH DROPS 2.5 ML BTL LEFT EYE SCH (21:40)
[2020-08-24] MEDS: methylPREDNISolone SOD SUCCI 125 MG/2 ML VIAL IV SCH ×2 (02:55→07:16)
[2020-08-24] MEDS: FUROSEMIDE 40 MG TAB PO SCH (07:16)
[2020-08-24] MEDS: HEPARIN SODIUM,PORCINE/PF 5,000 UNIT/0.5 ML SYRINGE SQ SCH (07:16)
[2020-08-24] MEDS: GABAPENTIN 100 MG CAP PO SCH (07:16)
[2020-08-24] MEDS: MULTIVITAMINS, THERA 1 EACH TAB PO SCH (07:16)
[2020-08-24] MEDS: PANTOPRAZOLE 40 MG TABLET PO SCH (07:17)
[2020-08-24] MEDS: SPIRONOLACTONE 25 MG TAB PO SCH (07:17)
[2020-08-24] MEDS: CHOLECALCIFEROL 25 MCG (1000 IU) TABLET PO SCH (07:17)
[2020-08-24] MEDS: VIT A,C & E-LUTEIN-MINERALS 1 EACH TAB PO SCH (07:17)
[2020-08-24 07:29] LABS: Glucose,Whole Blood 140 mg/dL (75-99)
[2020-08-24] MEDS: INSULIN ASPART (NovoLOG) 100 UNIT/ML VIAL SQ SCH (07:45)
[2020-08-24] MEDS: BUDESONIDE 1 MG/2 ML NEBU INHALATION SCH (08:00)
[2020-08-24] MEDS: IPRATROPIUM-ALBUTEROL 3 ML NEB INHALATION SCH ×2 (08:00→11:37)
[2020-08-24] MEDS: FORMOTEROL FUMARATE 20 MCG/2 ML NEBU INHALATION SCH (08:00)
[2020-08-24 08:04] VITALS: RESP 18
[2020-08-24 08:33] VITALS: BP 129/72; PULSE 71; TEMP 98.4
[2020-08-24 09:26] LABS: HCT 39.6 % (39.6-50.0); HGB 13.2 g/dL (13.0-17.0); MCH 32.7 pg (27.0-32.0); MCHC 33.3 g/dL (32.0-37.0); Mean Platelet Volume 9.6 fL (9.5-12.2); Platelet Count 337 X 10*3/uL (140-440); RBC 4.04 X 10*6/uL (4.40-5.60); RDW 13.3 % (11.5-14.5); WBC 19.23 X 10*3/uL (4.50-10.00)
--- NOTE | 2020-08-24 10:25 | P.PN ---
Subjective Progress Note Date: 08/24/20 Principal diagnosis: Shortness of breath 65-year-old male patient presented to [facility] department with multiple complaints. The patient's main complaint was abdominal pain that started in his left lower quadrant at around 8:00 in the admission.. No vomiting. No emesis. No diar dariusz. He was also having some increased dyspnea, increased cough and chest tightness and wheezing which is typical for his underlying COPD exacerbation. For that, the patient came into the emergency department and was hospitalized. The patient otherwise was afebrile hemodynamically stable. His EKG showed a normal sinus rhythm. His vitals were stable. His CMP and CBC were unremarkable. His lactic acid level was at 2.2. Amylase and lipase were nonspecific. CAT scan of the abdomen and pelvis was done and it showed no acute abnormalities. He was hospitalized for an acute COPD exacerbation. He was given breathing treatments. He was given 2 DuoNeb treatments in the emergency department and he was started also on IV Solu-Medrol. His chest x-ray showed some pulmonary vascular congestion. His proBNP level was 320. On 08/16/2020 patient seen in follow-up on medical surgical floor. He is sitting up in the bed, he states he is feeling better, he is on room air, his pulse ox is 94-97%. He is mild swelling in his lower extremities, but overall reports improvement with his breathing. No fever or chills, he is still however very wheezy. Remains on IV Solu-Medrol 40 mg every 8 hours, Levaquin, and breathing treatments. On 08/17/2020 patient seen in follow-up on medical surgical floor. He states he didn't feel much improvement in terms of his wheezing and shortness of breath. He sitting up on the edge of the bed, appears to be in no acute distress, room air pulse ox is 94%, he is afebrile, hemodynamically stable, reports no chest discomfort, no fever or chills. On physical exam patient's lung sounds are positive for scattered wheezes. In patient is still very much bronchospastic. He remains on IV Solu-Medrol he is on Levaquin, and breathing treatments. On 08/18/2020 patient seen in follow-up on medical surgical floor, still coughing, still quite wheezy, and patient has been slow to improve. He remains on IV Solu-Medrol, currently 40 mg every 8 hours, Levaquin, nebulized bronchodilators, and daily dose of Lasix was added yesterday. His chest x-ray yesterday showed no acute process, and underlying emphysema. His echocardiogram from this admission showed improved LV function, with EF of 55-60% which is improved from was previous echocardiogram in August 2019 that showed EF of 40-45%. Patient is on room air, pulse ox is 90%, hemodynamically stable, no fever or chills. Sputum culture has shown no growth On 08/19/2020 patient seen in follow-up on medical surgical floor. He has been very slow to improve, still coughing, still wheezing, despite maximizing his medical treatment, his been afebrile. Vital signs have been stable, he is on room air, today's labs have been reviewed, white blood cell count is 11.7, hemoglobin is 13.3, sodium is 134, chloride is 93, CO2 34, and renal profile was within normal limits. Remains on Levaquin, IV steroids, and nebulized bronchodilators. His follow-up chest x-ray showed no acute process. We discus sed possibility of bronchoscopy with BAL with him yesterday to which he was agreeable and we'll place the patient on the schedule for tomorrow. On 08/20/2020 patient is seen in follow-up on medical surgical floor. We place the patient on the schedule for bronchoscopy with BAL however we were told that they would be no spot available for the procedure in the endoscopy suite until later in the afternoon, likely after 3 PM. We canceled the procedure, we fed the patient. He is sitting up comfortably, breathing comfortably, he is on room air, pulse ox is 94%, still has a congested cough, he did produce some sputum for culture, which showed no growth, he had a high resolution CT of the chest y esterday, which showed no specific findings of interstitial lung disease, and no evidence for bronchiectasis. He did not COPD with mild to moderate upper lobe emphysema and prominent biapical scarring. Mild to moderate diffuse bronchial wall thickening which has increased from his most previous computed tomography scan from 2014 that could represent chronic bronchitis or superimposed acute bronchitis, and stable mild aortic root aneurysm at 4.2 cm. Patient remains on antibiotics 60 g every 6 hours, antibiotics, and bronchodilators. On 08/23/2020 patient seen in follow-up on medical surgical floor. He is awake and alert, in no acute distress, he continued to sound very congested, broncho spastic, and very slow to improve, we kept the patient nothing by mouth for bronchoscopy with BAL. Patient has been maximized on medical treatment, he continues on Solu-Medrol 60 mg every 6 hours, continues on nebulized bronchodilators, Pulmicort, Perforomist, DuoNeb. Patient was [facility] to the [facility] ch[facility] suite and underwent bronchoscopy with BAL and conscious sedation. He tolerated procedure very well, large amount of mucous plugs, and thick tenacious secretions were removed from his bronchial airways. Samples were sent for cultures. On 08/24/2020 patient seen in follow-up on medical surgical floor. He is awake, oriented 3, he is doing much better, breathing much easier, much less c ongestive bronchospastic on today's exam. Lung sounds reveal some minimal wheezes and a few rhonchi. No complaints of chest pain, no fever or chills, patient is status post bronchoscopy with BAL on 08/23/[address] MAURO, with removal of multiple mucous plugs and thick tenacious secretions. BAL cultures are still pending. Vital signs are stable, patient is on room air, with a pulse ox of 98%. Today's labs have been reviewed, his white blood cell count is up some her to yesterday's labs, and currently is at 19.23, this may be related to steroids. But if signs have been stable, overall patient is feeling and breathing easier. He continues on antibiotics, bronchodilators and steroids. He feels like he could go home today Objective - Vital Signs Vital signs: Vital Signs Temp 98.4 F 08/24/20 07:00 Pulse 77 08/24/20 08:26 Resp 18 08/24/20 08:26 BP 129/72 08/24/20 07:00 Pulse Ox 98 08/24/20 07:00 Intake & Output 08/23/20 08/24/20 08/24/20 18:59 06:59 18:59 Intake Total 418 Balance 418 Weight 97 kg Intake: IV 300 Oral 118 Other: Voiding Method Toilet - Exam GENERAL EXAM: Alert, very pleasant, 65-year-old white male, sitting up in bed, on room air, with pulse ox of 94% comfortable in no apparent distress. HEAD: Normocephalic/atraumatic. EYES: Normal reaction of pupils, equal size. Conjunctiva pink, sclera white. NOSE: Clear with pink turbinates. THROAT: No erythema or exudates. NECK: No masses, no JVD, no thyroid enlargement, no adenopathy. CHEST: No chest wall deformity. Symmetrical expansion. LUNGS: Equal air entry with minimal wheezes, and a few rhonchi CVS: Regular rate and rhythm, normal S1 and S2, no gallops, no murmurs, no rubs ABDOMEN: Soft, nontender. No hepatosplenomegaly, normal bowel sounds, no guarding or rigidity. EXTREMITIES: No clubbing, mild nonpitting edema no cyanosis, 2+ pulses and upper and lower extremities. MUSCULOSKELETAL: Muscle strength and tone normal. SPINE: No scoliosis or deformity SKIN: No rashes CENTRAL NERVOUS SYSTEM: Alert and oriented -3. No focal deficits, tone is normal in all 4 extremities. PSYCHIATRIC: Alert and oriented -3. Appropriate affect. Intact judgment and insight. - Labs CBC & Chem 7: 08/24/20 06:15 08/23/20 06:00 Labs: Abnormal Lab Results - Last 24 Hours (Table) 08/23/20 08/23/20 08/23/20 Range/Units 06:00 11:36 16:42 WBC (4.50-10.00) X 10*3/uL RBC (4.40-5.60) X 10*6/uL MCV (80.0-97.0) fL MCH (27.0-32.0) pg Neutrophils # (Manual) 12.20 H (2.00-8.90) X 10*3/uL Eosinophils # (Manual) 0 L (0.04-0.35) X 10*3/uL POC Glucose (mg/dL) 124 H 216 H (75-99) mg/dL 08/23/20 08/24/20 08/24/20 Range/Units 20:31 06:15 07:27 WBC 19.23 H (4.50-10.00) X 10*3/uL RBC 4.04 L (4.40-5.60) X 10*6/uL MCV 98.0 H (80.0-97.0) fL MCH 32.7 H (27.0-32.0) pg Neutrophils # (Manual) (2.00-8.90) X 10*3/uL Eosinophils # (Manual) (0.04-0.35) X 10*3/uL POC Glucose (mg/dL) 164 H 140 H (75-99) mg/dL Assessment and Plan Plan: Assessment: #1. Acute COPD exacerbation, and purulent tracheobronchitis, patient was slow to improve on medical therapy, and on 08/23/2020 patient underwent bronchoscopy with BAL would removal of large quantity of mucous plugs and thick tenacious secretions #2. history of atrial fibrillation currently in a normal sinus rhythm. #3 history of mild congestion heart failure with an ejection fraction of 40% and the patient currently is well compensated. ProBNP level is not elevated. This is based on echocardiogram that was done in 2019. He does have #4. previous hospitalization for acute exacerbation of chronic obstructive pulmonary disease, status post bronchoscopies with BAL 2, and bronchial lavage performed on 09/01/2019 showed evidence of pseudomonas aeruginosa, and Klebs iella oxytoca, and Jamila albicans, patient was discharged home on 09/04/2019 on oral course of Levaquin #5. Glaucoma #6. Herring's esophagus #7. Previous history of tobacco use #8. Moderately severe COPD, with baseline FEV1 of 1.89 L or 53% of predicted, and patient's usually on Incruse Ellipta 62.5 mcg 1 puff daily, DuoNeb 4 times daily, and Symbicort 160 mics4.52 puffs twice daily Plan: Clinically improving Minimal wheezing and congestion BAL cultures have been sent and pending No acute events overnight Increase activity as tolerated Consider discharge home today if cleared by medicine on a prednisone taper, he completed a course of Levaquin, no need for additional antibiotics he can resume his usual nebulized bronchodilator at home, patient is usually on Incruse Ellipta 62.5 mcg 1 puff daily, DuoNeb 4 times daily, and Symbicort 160 mics4.52 puffs twice daily Patient will need outpatient follow-up with Dr. Mitchell in the office in 7-10 days I performed a history & physical examination of the patient and discussed their management with my nurse practitioner, Luana Arcos. I reviewed the nurse practitioner's note and agree with the documented findings and plan of care. Lung sounds are positive for diffuse wheezes throughout the lung malagon. The findings and the impression was discussed with the patient. I attest to the documentation by the nurse practitioner. Time with Patient: Less than 30
--- NOTE | 2020-08-24 10:42 | P.PN ---
Subjective Progress Note Date: 08/23/20 This is a 65-year-old male who was recently admitted with shortness of breath and possible COPD exacerbation along with acute purulent tracheobronchitis as well as congestive heart failure acute exacerbation and is being closely monitored. Patient continues on IV Lasix with cardiology following as well as breathing inhalational treatments and IV steroids. Pulmonary is also following closely. Patient continues to be dyspneic with exertion and is currently sitting up at the site of the bed on room air. Patient underwent CT abdomen and pelvis which was resulting in no abnormalities and lab work shows odium is 135 with a potassium of 3.8 and creatinine is within normal limits at 0.9. Blood sugars variable and will continue with current regimen. 08/17/2020 Patient is seen and evaluated this morning and follow-up continues to be on Levaquin along with breathing inhalational treatments and IV steroids and will continue at this time. Pulmonary and cardiology following and patient has been resumed on home dose of oral Lasix and will continue. Recommend compression stockings and elevating lower extremities while at rest. Patient does sit at the side of the bed with legs being dependent and did discuss about elevating extremities. Patient continues to have audible expiratory wheezing noted with a cough and will continue current medication regimen. Sputum culture shows normal respiratory nalini with no aureus or aeruginosa recovered. Patient still having dyspnea on exertion. 08/18/2020 Patient is seen in follow-up this morning continues to be extremely bronchospastic with audible wheezing noted on exam. Patient does having multiple coughing spells and increasing dyspnea with exertion. Pulmonary following closely and have increased IV steroids to every 6 and will continue with breathing treatments. Will continue to monitor for another 24 hours and if no improvement will have bronchoscopy on Sunday. Will repeat a.m. labs and monitor closely. 08/19/2020 Patient is seen this morning with expiratory audible wheezes on exam although slightly improved but continues on IV steroids every 6 hours with pulmonary following closely. Paient also continues with breathing inhalational treatments and oral antibiotics in the form of Levaquin. Patient is very slow to improve and plans are for bronchoscopy with BAL in the morning. Will await report. Patient underwent chest CT which is pending at this time. 08/20/2020 Patient is seen this morning with no acute overnight issues. Patient was tentatively scheduled for bronchoscopy with BAL with pulmonary today although no available space in the OR for procedure and will likely be performed on Sunday. Patient continues on oral antibiotics along with breathing inhalational treatments and continued IV steroids. Patient continues to be bronchospastic and audible wheezing continue to be noted on exam. Patient does have a cough and continues with frequent coughing spells and instructed the patient to expectorate phlegm if production occurs. Patient is on room air and states he does feel slightly more dyspneic when getting up and walking around. Patient denies chest pain or palpitations. Tolerating diet with no reports of nausea or vomiting noted. Denies abdominal discomfort. 08/21/2020 Patient is seen and evaluated in follow-up on the regular medical floor. He is currently sitting up in bed. Awake and alert in no acute distress. Still with a cough but is quite dry at the moment. Denies any worsening shortness of breath. Still some dyspnea on exertion. Still some wheezing. He is maintaining good O2 saturations in the mid 90s on room air. He is afebrile. Hemodynamically stable. Sputum culture reveals no growth. Blood glucose 125. He remains on DuoNeb inhalations, Pulmicort and Perforomist inhalations, IV Solu-Medrol. Empiric antibiotics in the form of Levaquin. 08/22/2020 Patient seen and evaluated at bedside in follow-up on the regular medical floor. He is awake and alert in no acute distress. Continues with a loose nonproductive cough. Improved but not quite back to his baseline. Maintaining O2 saturations in the mid 90s on room air. He's been afebrile. Hemodynamically stable. Sputum culture revealed no growth. Blood glucose 137. He remains on DuoNeb inhalations, Pulmicort and Perforomist inhalations, IV Solu-Medrol. Antibiotics in the form of Levaquin Pulmonary recommending to make patient nothing by mouth tonight for possible bronchoscopy tomorrow morning 08/23/2020 Patient is seen in follow-up with no acute overnight issues. Patient continues to be improving slowly not quite back to baseline and scheduled to undergo bronchoscopy with BAL today. Continues with a cough with minimal phlegm production noted. Patient continues on IV steroids along with DuoNeb treatments and will continue. Await bronchoscopy report and discuss with pulmonary regarding disposition. Review of systems: Constitutional: No reports of fatigue, fever, or chills Cardiovascular: No reports of chest pain or palpitations Respiratory: Reports continued shortness of breath and minimal cough with no phlegm production, reports coughing spells as well GI: No reports of nausea, vomiting, or diarrhea : No reports of dysuria or retention Neurovascular: No reports of weakness or numbness All medications have been reviewed Objective - Vital Signs Vital signs: Vital Signs Temp 97.9 F 08/23/20 12:54 Pulse 110 H 08/23/20 12:54 Resp 18 08/23/20 12:54 BP 128/70 08/23/20 12:54 Pulse Ox 93 L 08/23/20 12:54 Intake & Output 08/22/20 08/23/20 08/23/20 18:59 06:59 18:59 Intake Total 300 Balance 300 Weight 95.7 kg Intake: IV 300 Other: Voiding Method Toilet Toilet - Exam Gen: This is a 65-year-old male sitting at the side of the bed awake, alert and oriented 3, well-developed, well-nourished. HEENT: Head is atraumatic, normocephalic. Pupils equal, round. Sclerae is anicteric. NECK: Supple. No JVD. No lymphadenopathy. No thyromegaly. LUNGS: Diminished breath sounds bilaterally with scattered rhonchi and expiratory wheezing noted throughout. Coughing throughout exam and bronchospastic. No intercostal retractions. HEART: S1, S2 are muffled ABDOMEN: Soft. Obese. Bowel sounds are present. No masses. No tenderness. EXTREMITIES: No pedal edema. No calf tenderness. NEUROLOGICAL: Patient is awake, alert and oriented x3. Cranial nerves 2 through 12 are grossly intact. - Labs CBC & Chem 7: 08/24/20 06:15 08/23/20 06:00 Labs: Abnormal Lab Results - Last 24 Hours (Table) 08/22/20 08/22/20 08/23/20 Range/Units 17:15 20:40 06:00 WBC 14.02 H (4.50-10.00) X 10*3/uL RBC 3.78 L (4.40-5.60) X 10*6/uL Hgb 12.1 L (13.0-17.0) g/dL Hct 37.4 L (39.6-50.0) % MCV 98.9 H (80.0-97.0) fL Neutrophils # (Manual) 12.20 H (2.00-8.90) X 10*3/uL Eosinophils # (Manual) 0 L (0.04-0.35) X 10*3/uL Sodium (135-145) mmol/L BUN/Creatinine Ratio (12.00-20.00) Ratio Glucose (70-110) mg/dL POC Glucose (mg/dL) 133 H 184 H (75-99) mg/dL Calcium (8.7-10.3) mg/dL 08/23/20 08/23/20 08/23/20 Range/Units 06:00 07:32 11:36 WBC (4.50-10.00) X 10*3/uL RBC (4.40-5.60) X 10*6/uL Hgb (13.0-17.0) g/dL Hct (39.6-50.0) % MCV (80.0-97.0) fL Neutrophils # (Manual) (2.00-8.90) X 10*3/uL Eosinophils # (Manual) (0.04-0.35) X 10*3/uL Sodium 133 L (135-145) mmol/L BUN/Creatinine Ratio 27.50 H (12.00-20.00) Ratio Glucose 134 H (70-110) mg/dL POC Glucose (mg/dL) 140 H 124 H (75-99) mg/dL Calcium 8.0 L (8.7-10.3) mg/dL Assessment and Plan Assessment: Shortness of breath, multifactorial with COPD exacerbation with acute purulent tracheobronchitis as well as congestive heart failure acute exacerbation with acute on chronic systolic dysfunction ejection fraction 40-45% Status post bronchoscopy with BAL History of paroxysmal atrial fibrillation history of COPD history of glaucoma history of degenerative joint disease elevated amylase without any evidence of pancreatitis on the computed tomography scan history of Herring's esophagus hyponatremia, chronic Anemia, normocytic anemia of chronic disease Elevated plasma lactic acid COVID-19 negative Full code Plan: Recommend to continue with current medications and symptomatic treatment. Patient will continue on bronchodilators along with IV steroids with pulmonary following. IV steroids and continued every 6 hours as patient continues to be wheezy and bronchospastic on exam. Patient scheduled for bronchoscopy today and will await report. Encourage the patient to increase activity as tolerated. Possible discharge in 24 hours.
[2020-08-24 11:40] LABS: Basophils # (M) 0 X 10*3/uL (0.00-0.10); Eosinophils # (M) 0 X 10*3/uL (0.04-0.35); Lymphocytes # (M) 1.15 X 10*3/uL (0.90-5.00); Metamyelocytes % 1 % (0-0); Monocytes # (M) 0.77 X 10*3/uL (0.20-1.00); Myelocytes % 1 % (0-0); Neutrophils # (M) 16.92 X 10*3/uL (2.00-8.90); Neutrophils % (M) 88 %
[2020-08-24 15:12] LABS: African American GFR (CKD) 107.1 (60.0-200.0); Anion Gap 8.3 mmol/L (4.00-12.00); Calcium 8.1 mg/dL (8.7-10.3); Carbon Dioxide 31.7 mmol/L (21.6-31.8); Non-African American GFR(CKD) 92.4 (60.0-200.0); Potassium 3.8 mmol/L (3.5-5.5)
--- NOTE | 2020-08-25 14:06 | CDI ---
Documentation Clarification Form Date: 08/25/20 From: Conchita Luke Admit Date: 08/14/2020 11:52:00 PM Patient Name: Eric Curran Visit Number: [id number] Discharge Date: 08/24/2020 11:38:00 AM ATTENTION: The Clinical Documentation Specialists (CDI) and [facility] Coding Staff appreciate your assistance in clarifying documentation. Please respond to the clarification below the line at the bottom and electronically sign. The CDI & [facility] Coding staff will review the response and follow-up if needed. Please note: Queries are made part of the Legal Health Record. If you have any questions, please contact the author of this message via ITS. Dr. Josep Tovar, Conflicting documentation has been found in the medical record. As attending physician, please provide clarification. Per Dr Cooley's 08/15 PN and subsequent it is stated "congestive heart failure acute exacerbation with acute on chronic systolic dysfunction ejection fraction 40-45%." Per Cardiology consult "chronic systolic heart failure, ejection fraction 40%". 08/[address] Veliz "May continue IV Lasix secondary to bilateral lower extremity edema". History/Risk Factors: COPD, hyponatremia, CHF, PAF Clinical Indicators: BNP-320, T-98.2, P-100, R-20, BP-133/70, O2-98 08/13 CXR: There is elevation of the left hemidiaphragm. Biapical opacities appear similar to the prior examination. Bilateral perihilar prominence appears slightly worsened prior examination, possibly pulmonary edema. Treatment: IV Lasix 40 mg then switched to Lasix po 40 mg Please clarify which diagnosis is most appropriate: [ ] Acute on chronic systolic CHF [ ] Chronic systolic CHF [ ] Other (please specify) [ ] Unable to determine MTDD
--- NOTE | 2020-08-25 14:11 | P.DS ---
Providers Date of admission: 08/14/20 23:52 Expected date of discharge: 08/24/20 Attending physician: Josep Tovar Consults: 08/14/20 15:05 Consult Physician Routine Consulting Provider: Jacques Mitchell Consult Reason/Comments: COPD Do you want consulting provider notified?: Yes Primary care physician: Bia Anderson [facility] Course: Final diagnosis Shortness of breath, multifactorial with COPD exacerbation with acute purulent tracheobronchitis as well as congestive heart failure acute exacerbation with acute on chronic systolic dysfunction ejection fraction 40-45% Status post bronchoscopy with BAL History of paroxysmal atrial fibrillation history of COPD history of glaucoma history of degenerative joint disease elevated amylase without any evidence of pancreatitis on the computed tomography scan history of Herring's esophagus hyponatremia, chronic Anemia, normocytic anemia of chronic disease Elevated plasma lactic acid COVID-19 negative Full code Discharge disposition Patient is being discharged in a stable condition with guarded prognosis to home. Patient will follow-up with Dr. Anderson in the outpatient setting upon discharge. Patient is to also follow-up cardiology, pulmonary, and GI outpatient and will continue with [facility]. Total time taken is greater than 35 minutes. Hospital course This is a 65-year-old male who was recently admitted with shortness of breath with possible COPD acute exacerbation with acute purulent tracheobronchitis as well as CHF acute exacerbation and being closely monitored. Patient was very slow to respond and improve and ultimately underwent bronchoscopy with BAL and will be following up with pulmonary patient bronchodilators on discharge. Patient also instructed to follow-up with cardiology outpatient and will continue with home care in the outpatient setting. Patient to follow-up with GI Dr. Sanchez as well. Currently no reports of chest pain, worsening shortness of breath, or palpitations. Patient is afebrile. No reports of nausea or vomiting and patient is tolerating diet. Patient will be discharged home today. On exam vital signs are stable. Cardio S1, S2 are muffled. Respiratory system shows diminished breath sounds at the bases with mild expiratory wheezing and scattered rhonchi noted. Abdomen is soft and obese, and nontender. Nervous system shows no focal deficits. Please refer to medication reconciliation sheet for a list of medications. Patient Condition at Discharge: Stable Plan - Discharge Summary Discharge Rx Participant: No New Discharge Prescriptions: New Ipratropium-Albuterol Nebulize [Duoneb 0.5 mg-3 mg/3 ml Soln] 3 ml INHALATION RT-QID PRN ml PRN Reason: Shortness Of Breath Or Wheezing Ipratropium-Albuterol Nebulize [Duoneb 0.5 mg-3 mg/3 ml Soln] 3 ml INHALATION QID 30 Days #5 box Umeclidinium Wilson [Incruse Ellipta] 1 puff INHALATION DAILY 30 Days #1 device predniSONE 1 mg PO DIRECTED 16 Days #40 tab Budesonide-Formot 160-4.5 Mcg [Symbicort 160-4.5 Mcg Inhaler] 2 puff INHALATION BID 30 Days #1 inhaler Continue Latanoprost [Xalatan 0.005%] 1 drop LEFT EYE HS Vit C/E/Zn/Coppr/Lutein/Zeaxan [Preservision Areds 2 Softgel] 1 tab PO BID Albuterol Inhaler [Ventolin Hfa Inhaler] 1 puff INHALATION RT-Q6H PRN PRN Reason: Shortness Of Breath Spironolactone [Aldactone] 25 mg PO DAILY 30 Days #30 tab Furosemide [Lasix] 40 mg PO DAILY 30 Days #30 tab Multivitamins, Thera [Multivitamin (formulary)] 1 tab PO DAILY Acetaminophen-Codeine 300-30mg [Tylenol w/codeine #3] 2 tab PO Q4H PRN PRN Reason: Pain Gabapentin [Neurontin] 100 mg PO DAILY Albuterol Nebulized [Ventolin Nebulized] 2.5 mg INHALATION RT-QID PRN PRN Reason: Shortness Of Breath Cholecalciferol (Vitamin D3) [Vitamin D3 (5000 Iu)] 250 mcg PO DAILY Ibuprofen [Motrin] 800 mg PO Q8H PRN PRN Reason: Pain Discharge Medication List Latanoprost [Xalatan 0.005%] 1 drop LEFT EYE HS 10/31/17 [History] Albuterol Inhaler [Ventolin Hfa Inhaler] 1 puff INHALATION RT-Q6H PRN 08/22/19 [History] Vit C/E/Zn/Coppr/Lutein/Zeaxan [Preservision Areds 2 Softgel] 1 tab PO BID 08/22/19 [History] Furosemide [Lasix] 40 mg PO DAILY 30 Days #30 tab 07/17/20 [Rx] Spironolactone [Aldactone] 25 mg PO DAILY 30 Days #30 tab 09/12/19 [Rx] Acetaminophen-Codeine 300-30mg [Tylenol w/codeine #3] 2 tab PO Q4H PRN 08/13/20 [History] Albuterol Nebulized [Ventolin Nebulized] 2.5 mg INHALATION RT-QID PRN 08/13/20 [History] Cholecalciferol (Vitamin D3) [Vitamin D3 (5000 Iu)] 250 mcg PO DAILY 08/13/20 [History] Gabapentin [Neurontin] 100 mg PO DAILY 08/13/20 [History] Ibuprofen [Motrin] 800 mg PO Q8H PRN 08/13/20 [History] Multivitamins, Thera [Multivitamin (formulary)] 1 tab PO DAILY 08/13/20 [History] Budesonide-Formot 160-4.5 Mcg [Symbicort 160-4.5 Mcg Inhaler] 2 puff INHALATION BID 30 Days #1 inhaler 08/24/20 [Rx] Ipratropium-Albuterol Nebulize [Duoneb 0.5 mg-3 mg/3 ml Soln] 3 ml INHALATION QID 30 Days #5 box 08/24/20 [Rx] Ipratropium-Albuterol Nebulize [Duoneb 0.5 mg-3 mg/3 ml Soln] 3 ml INHALATION RT-QID PRN ml 08/24/20 [Rx] Umeclidinium Wilson [Incruse Ellipta] 1 puff INHALATION DAILY 30 Days #1 device 08/24/20 [Rx] predniSONE 1 mg PO DIRECTED 16 Days #40 tab 08/24/20 [Rx] Follow up Appointment(s)/Referral(s): Clementine Sanchez MD [STAFF PHYSICIAN] - 09/15/20 12:00 pm (high amylase) [facility], [NON-STAFF] - 1-2 Days Bia Anderson MD [Primary Care Provider] - 1-2 days Roberto Sanchez MD [STAFF PHYSICIAN] - 1 Week (office will call patient with appointment ) Jacques Mitchell MD [STAFF PHYSICIAN] - 09/16/20 2:30 pm (Appointment made for 09/16/20 @ 2:30 . Appointment patient had on September 06 is cancelled . ) Patient Instructions/Handouts: Pulmonary Edema (DC), COPD (Chronic Obstructive Pulmonary Disease) (GEN) Activity/Diet/Wound Care/Special Instructions: Activity limited until follow-up Continue with medications as prescribed follow up with pulmonary outpatient as discussed and scheduled Primary care provider upon discharge Continue heart healthy diet Discharge Disposition: HOME WITH HOME HEALTH SERVICES
== END 2020-08-24 11:38 | disposition home health service (06) | DRG 164 ==
LOC: EC 12:56 → 6NMEDSUR 17:37 → OBSVTOIN 08-14 23:52
PROVIDERS: ADMIT Internal Medicine; ATTEND Internal Medicine
PROC: 0BC78ZZ Extirpation of Matter from Left Main Bronchus, Via Natural or Artificial Opening Endoscopic (ICD-10-PCS; principal; 2020-08-23 08:25)
PROC: 0BCD8ZZ Extirpation of Matter from Right Middle Lung Lobe, Via Natural or Artificial Opening Endoscopic (ICD-10-PCS; principal; 2020-08-23 08:25)
PROC: 0BCF8ZZ Extirpation of Matter from Right Lower Lung Lobe, Via Natural or Artificial Opening Endoscopic (ICD-10-PCS; principal; 2020-08-23 08:25)
PROC: 0BC48ZZ Extirpation of Matter from Right Upper Lobe Bronchus, Via Natural or Artificial Opening Endoscopic (ICD-10-PCS; principal; 2020-08-23 08:25)
PROC: 0B9D8ZX Drainage of Right Middle Lung Lobe, Via Natural or Artificial Opening Endoscopic, Diagnostic (ICD-10-PCS; principal; 2020-08-23 08:25)
PROC: 0BC38ZZ Extirpation of Matter from Right Main Bronchus, Via Natural or Artificial Opening Endoscopic (ICD-10-PCS; principal; 2020-08-23 08:25)
PROC: 0BCB8ZZ Extirpation of Matter from Left Lower Lobe Bronchus, Via Natural or Artificial Opening Endoscopic (ICD-10-PCS; principal; 2020-08-23 08:25)
DX: J44.0 Chronic obstructive pulmonary disease with (acute) lower respiratory infection (principal); E87.1 Hypo-osmolality and hyponatremia; I50.22 Chronic systolic (congestive) heart failure; J44.1 Chronic obstructive pulmonary disease with (acute) exacerbation; J98.09 Other diseases of bronchus, not elsewhere classified; D63.8 Anemia in other chronic diseases classified elsewhere; I48.0 Paroxysmal atrial fibrillation; E86.0 Dehydration; Z20.822 Contact with and (suspected) exposure to COVID-19; J20.9 Acute bronchitis, unspecified; Z96.612 Presence of left artificial shoulder joint; I07.1 Rheumatic tricuspid insufficiency; H40.9 Unspecified glaucoma; K22.70 Barrett's esophagus without dysplasia; M25.569 Pain in unspecified knee; M19.90 Unspecified osteoarthritis, unspecified site; Z79.899 Other long term (current) drug therapy; Z87.891 Personal history of nicotine dependence; Z88.6 Allergy status to analgesic agent
CPT/HCPCS: 31624; 36415; 71045; 71046; 71250; 74176; 74177; 80048; 80053; 81003; 82150; 83605; 83690; 83735; 83880; 84145; 84484; 85025; 87070; 87205; 87635; 88104; 88305; 93005; 93306; 94640; 96374; 96375; 99285

== ENCOUNTER 2020-08-25 21:09 | Emergency (ER) | payer MEDICARE, OTHER ==
[2020-08-25 21:29] VITALS: RESP 18
--- NOTE | 2020-08-25 21:44 | ED ---
General Adult HPI - General Chief complaint: Chest Pain Stated complaint: rapid heart rate Time Seen by Provider: 08/25/20 21:11 Source: EMS Mode of arrival: EMS Limitations: no limitations - History of Present Illness Initial comments: This patient is a 65-year-old man who presents to have evaluation for rapid heartbeat and some chest pain that developed this evening. The patient states that it was probably an hour before his arrival here he had been sitting with his family and he was drinking coffee. He noticed that his heart started racing and he was having some pressure on his chest. They called EMS who brought him here. The time I see the patient, his chest symptoms have resolved. Patient denies dyspnea. He states that his breathing feels pretty good since his lungs were "washed out." Onset/Timin -: hour(s) Location: chest Radiation: non-radiation Quality: dull Consistency: now resolved Improves with: none Worsens with: none Associated Symptoms: other (Outpatient) - Related Data Home Medications Medication Instructions Recorded Confirmed Latanoprost [Xalatan 0.005%] 1 drop LEFT EYE HS 10/31/17 08/25/20 Albuterol Inhaler [Ventolin Hfa 1 puff INHALATION RT-Q6H PRN 08/22/19 08/25/20 Inhaler] Vit C/E/Zn/Coppr/Lutein/Zeaxan 1 tab PO BID 08/22/19 08/25/20 [Preservision Areds 2 Softgel] Acetaminophen-Codeine 300-30mg 2 tab PO Q4H PRN 08/13/20 08/25/20 [Tylenol w/codeine #3] Albuterol Nebulized [Ventolin 2.5 mg INHALATION RT-QID PRN 08/13/20 08/25/20 Nebulized] Cholecalciferol (Vitamin D3) 250 mcg PO DAILY 08/13/20 08/25/20 [Vitamin D3 (5000 Iu)] Gabapentin [Neurontin] 100 mg PO DAILY 08/13/20 08/25/20 Ibuprofen [Motrin] 800 mg PO Q8H PRN 08/13/20 08/25/20 Multivitamins, Thera [Multivitamin 1 tab PO DAILY 08/13/20 08/25/20 (formulary)] Ipratropium-Albuterol Nebulize 3 ml INHALATION RT-QID 08/25/20 08/25/20 [Duoneb 0.5 mg-3 mg/3 ml Soln] Umeclidinium [place] [Incruse 1 puff INHALATION RT-DAILY 08/25/20 08/25/20 Ellipta] predniSONE See Taper PO DAILY 08/25/20 08/25/20 Previous Rx's Medication Instructions Recorded Furosemide [Lasix] 40 mg PO DAILY 30 Days #30 tab 09/12/19 Spironolactone [Aldactone] 25 mg PO DAILY 30 Days #30 tab 09/12/19 Budesonide-Formot 160-4.5 Mcg 2 puff INHALATION BID 30 Days #1 08/24/20 [Symbicort 160-4.5 Mcg Inhaler] inhaler Ipratropium-Albuterol Nebulize 3 ml INHALATION RT-QID PRN ml 08/24/20 [Duoneb 0.5 mg-3 mg/3 ml Soln] Allergies Allergy/AdvReac Type Severity Reaction Status Date / Time aspirin Allergy Rash/Hives Verified 08/25/20 21:49 Review of Systems ROS Statement: Those systems with pertinent positive or pertinent negative responses have been documented in the HPI. ROS Other: All systems not noted in ROS Statement are negative. Constitutional: Denies: fever, chills Respiratory: Denies: cough, dyspnea Cardiovascular: Reports: as per HPI, chest pain, palpitations. Denies: orthopnea, edema, syncope Gastrointestinal: Denies: abdominal pain, nausea, vomiting, diarrhea, melena, hematochezia Genitourinary: Denies: dysuria, hematuria Musculoskeletal: Denies: back pain Skin: Denies: rash Neurological: Denies: headache, weakness, numbness Past Medical History Past Medical History: Heart Failure, COPD Additional Past Medical History / Comment(s): Past medical history is positive for rectus sheath hematoma, history of atrial fibrillation and was noted during an earlier hospitalization and it has recovered, COPD, glucoma, Herring's eso phagus,CHF with mild systolic heart failure and ejection fraction of 40- 45%Associated with moderate global hypokinesis. The patient also has an aortic root of 4.0 cm. History of Any Multi-Drug Resistant Organisms: None Reported Past Surgical History: Joint Replacement Additional Past Surgical History / Comment(s): LT SHOULDER sx in 2009 Past Anesthesia/Blood Transfusion Reactions: No Reported Reaction Past Psychological History: No Psychological Hx Reported Smoking Status: Former smoker Past Alcohol Use History: None Reported Past Drug Use History: None Reported - Past Family History Daughter(s) Family Medical History: No Reported History General Exam Limitations: no limitations General appearance: alert, in no apparent distress Head exam: Present: atraumatic, normocephalic Eye exam: Present: normal appearance. Absent: scleral icterus, conjunctival injection Neck exam: Present: normal inspection Respiratory exam: Present: rhonchi. Absent: respiratory distress, wheezes, rales, stridor, accessory muscle use Cardiovascular Exam: Present: regular rate (With extra beat), normal rhythm, systolic murmur. Absent: diastolic murmur, rubs, gallop GI/Abdominal exam: Present: soft. Absent: distended, tenderness, guarding, rebound, rigid, pulsatile mass Extremities exam: Present: normal inspection, normal capillary refill. Absent: pedal edema, calf tenderness Back exam: Present: normal inspection. Absent: CVA tenderness (R), CVA tenderness (L) Neurological exam: Present: alert Skin exam: Present: warm, dry, intact, normal color. Absent: rash Course Vital Signs 08/25/20 08/25/20 08/25/20 21:26 22:05 22:32 Temperature 98.7 F Pulse Rate 113 H 117 H 92 Respiratory 18 18 18 Rate Blood Pressure 158/104 114/75 117/68 O2 Sat by Pulse 97 99 98 Oximetry 08/26/20 00:45 Temperature 98.1 F Pulse Rate 75 Respiratory 18 Rate Blood Pressure 132/80 O2 Sat by Pulse 97 Oximetry EKG Findings - EKG Comments: EKG Findings:: Rhythm is indeterminate. There are P waves, though there may be some variability. - EKG Results: EKG: interpreted by ERMD, sinus rhythm, normal axis, normal QRS - Blocks, Mccarley, Hypertrophy, ST Abn: Repolarization changes or abnormalities: nonspecific abnormality, ST segment, and/or T wave Medical Decision Making - Medical Decision Making With the patient's heart rate slowed, the ECG is reviewed. It is sinus rhythm. There was a pause in the ECG which did not show any underlying flutter waves. Patient is 65-year-old man who presented with palpitations and hypertension. He was having chest pain. His symptoms had resolved here. I discussed admission, and patient states she had just been in the hospital his preference is to go home. Discussed that there is possibility that this was cardiac in nature and he states he would definitely return if any symptoms recurred but he would like to go home. He states that he has an established follow-up appointment with cardiology that was from his previous admission and he was will keep that appointment - Lab Data Result diagrams: 08/25/20 22:04 08/25/20 22:04 Lab Results 08/25/20 08/25/20 08/25/20 Range/Units 22:04 22:04 22:04 WBC 16.2 H (3.8-10.6) k/uL RBC 4.51 (4.30-5.90) m/uL Hgb 14.9 (13.0-17.5) gm/dL Hct 43.7 (39.0-53.0) % MCV 96.8 (80.0-100.0) fL MCH 33.0 (25.0-35.0) pg MCHC 34.1 (31.0-37.0) g/dL RDW 13.0 (11.5-15.5) % Plt Count 279 (150-450) k/uL MPV 8.1 Neutrophils % 78 % Lymphocytes % 12 % Monocytes % 6 % Eosinophils % 3 % Basophils % 1 % Neutrophils # 12.6 H (1.3-7.7) k/uL Lymphocytes # 2.0 (1.0-4.8) k/uL Monocytes # 1.0 (0-1.0) k/uL Eosinophils # 0.4 (0-0.7) k/uL Basophils # 0.1 (0-0.2) k/uL PT 9.5 (9.0-12.0) sec INR 0.9 (<1.2) APTT 22.4 (22.0-30.0) sec Sodium 131 L (137-145) mmol/L Potassium 3.3 L (3.5-5.1) mmol/L Chloride 93 L (98-107) mmol/L Carbon Dioxide 30 (22-30) mmol/L Anion Gap 8 mmol/L BUN 20 (9-20) mg/dL Creatinine 0.76 (0.66-1.25) mg/dL Est GFR (CKD-EPI)AfAm >90 (>60 ml/min/1.73 sqM) Est GFR (CKD-EPI)NonAf >90 (>60 ml/min/1.73 sqM) Glucose 83 (74-99) mg/dL Calcium 8.2 L (8.4-10.2) mg/dL Magnesium 2.5 H (1.6-2.3) mg/dL Total Bilirubin 0.4 (0.2-1.3) mg/dL AST 35 (17-59) U/L ALT 34 (4-49) U/L Alkaline Phosphatase 80 (38-126) U/L Troponin I (0.000-0.034) ng/mL NT-Pro-B Natriuret Pep pg/mL Total Protein 5.9 L (6.3-8.2) g/dL Albumin 3.4 L (3.5-5.0) g/dL 08/25/20 08/25/20 Range/Units 22:04 22:04 WBC (3.8-10.6) k/uL RBC (4.30-5.90) m/uL Hgb (13.0-17.5) gm/dL Hct (39.0-53.0) % MCV (80.0-100.0) fL MCH (25.0-35.0) pg MCHC (31.0-37.0) g/dL RDW (11.5-15.5) % Plt Count (150-450) k/uL MPV Neutrophils % % Lymphocytes % % Monocytes % % Eosinophils % % Basophils % % Neutrophils # (1.3-7.7) k/uL Lymphocytes # (1.0-4.8) k/uL Monocytes # (0-1.0) k/uL Eosinophils # (0-0.7) k/uL Basophils # (0-0.2) k/uL PT (9.0-12.0) sec INR (<1.2) APTT (22.0-30.0) sec Sodium (137-145) mmol/L Potassium (3.5-5.1) mmol/L Chloride (98-107) mmol/L Carbon Dioxide (22-30) mmol/L Anion Gap mmol/L BUN (9-20) mg/dL Creatinine (0.66-1.25) mg/dL Est GFR (CKD-EPI)AfAm (>60 ml/min/1.73 sqM) Est GFR (CKD-EPI)NonAf (>60 ml/min/1.73 sqM) Glucose (74-99) mg/dL Calcium (8.4-10.2) mg/dL Magnesium (1.6-2.3) mg/dL Total Bilirubin (0.2-1.3) mg/dL AST (17-59) U/L ALT (4-49) U/L Alkaline Phosphatase (38-126) U/L Troponin I <0.012 (0.000-0.034) ng/mL NT-Pro-B Natriuret Pep 323 pg/mL Total Protein (6.3-8.2) g/dL Albumin (3.5-5.0) g/dL Disposition Clinical Impression: Chest pain, Palpitations, Hypertension Disposition: HOME SELF-CARE Condition: Good Instructions (If sedation given, give patient instructions): Chest Pain (ED), Heart Palpitations (ED) Is patient prescribed a controlled substance at d/c from ED?: No Referrals: Bia Anderson MD [Primary Care Provider] - 1-2 days Abdirizak Veliz DO [STAFF PHYSICIAN] - 1-2 days
--- NOTE | 2020-08-25 22:00 | XR ---
EXAMINATION TYPE: XR chest 2V DATE OF EXAM: 08/25/2020 COMPARISON: 08/17/2020. HISTORY: Chest pain. TECHNIQUE: Frontal and lateral views of the chest are obtained. FINDINGS: There is mild perihilar hazy opacity, compatible with atelectasis. No focal air space opac ity, pleural effusion, or pneumothorax seen. The cardiac silhouette size is within normal limits. The osseous structures are intact. IMPRESSION: No acute cardiopulmonary process. Mild atelectasis.
[2020-08-25] MEDS ORDERED: MORPHINE SULFATE 4 MG/ML SYRINGE IV STA (22:02)
[2020-08-25] MEDS ORDERED: DILTIAZEM ORAL 60 MG TAB PO STA (22:02)
[2020-08-25] MEDS ORDERED: NITROGLYCERIN OINT 1 INCH/GM PACKET TOPICAL STA (22:02)
[2020-08-25 22:51] LABS: ALT 34 U/L (4-49); AST 35 U/L (17-59); African American GFR (CKD) >90 (>60 ml/min/1.73 sqM); Albumin 3.4 g/dL (3.5-5.0); Alkaline Phosphatase 80 U/L (38-126); Anion Gap 8 mmol/L; Blood Urea Nitrogen 20 mg/dL (9-20); Calcium 8.2 mg/dL (8.4-10.2); Carbon Dioxide 30 mmol/L (22-30); Chloride 93 mmol/L (98-107); Glucose 83 mg/dL (74-99); Magnesium 2.5 mg/dL (1.6-2.3); Non-African American GFR(CKD) >90 (>60 ml/min/1.73 sqM); Sodium 131 mmol/L (137-145); Total Bilirubin 0.4 mg/dL (0.2-1.3); Total Protein 5.9 g/dL (6.3-8.2)
[2020-08-25 22:55] LABS: Potassium 3.3 mmol/L (3.5-5.1)
[2020-08-25 23:00] LABS: Basophils # (A) 0.1 k/uL (0-0.2); Basophils % (A) 1 %; Eosinophils # (A) 0.4 k/uL (0-0.7); Eosinophils % (A) 3 %; HCT 43.7 % (39.0-53.0); HGB 14.9 gm/dL (13.0-17.5); Lymphocytes % (A) 12 %; MCHC 34.1 g/dL (31.0-37.0); MCV 96.8 fL (80.0-100.0); Mean Platelet Volume 8.1; Monocytes % (A) 6 %; Neutrophils # (A) 12.6 k/uL (1.3-7.7); Neutrophils % (A) 78 %; Platelet Count 279 k/uL (150-450); RBC 4.51 m/uL (4.30-5.90); WBC 16.2 k/uL (3.8-10.6)
[2020-08-25 23:09] LABS: INR 0.9 (<1.2); Partial Thromboplastin Time 22.4 sec (22.0-30.0); Prothrombin Time 9.5 sec (9.0-12.0)
[2020-08-25] MEDS ORDERED: POTASSIUM CHLORIDE ER 20 MEQ TAB.ER PO STA (23:39)
[2020-08-26 00:52] VITALS: BP 132/80; PULSE 75; TEMP 98.1
== END 2020-08-26 00:45 | disposition home or self-care (01) ==
LOC: EC 21:09
DX: I11.0 Hypertensive heart disease with heart failure (principal); I50.20 Unspecified systolic (congestive) heart failure; J44.9 Chronic obstructive pulmonary disease, unspecified; I48.91 Unspecified atrial fibrillation; Z87.19 Personal history of other diseases of the digestive system; Z87.891 Personal history of nicotine dependence; Z79.1 Long term (current) use of non-steroidal anti-inflammatories (NSAID); Z79.51 Long term (current) use of inhaled steroids; Z79.52 Long term (current) use of systemic steroids; Z79.899 Other long term (current) drug therapy
CPT/HCPCS: 36415; 93005; 83880; 80053; 83735; 84484; 85025; 85610; 85730; 71046; 99285; 96374; J2270

== ENCOUNTER → 2020-09-30 | Outpatient (CLI) | payer MEDICARE, OTHER ==
[2020-09-30 22:35] LABS: Hemoglobin A1C 5.8 % (4.0-6.0)
== END | disposition home or self-care (01) ==
LOC: LABWHC1 09:51
PROVIDERS: ATTEND Psychiatry & Neurology Neurology
DX: M47.22 Other spondylosis with radiculopathy, cervical region (principal); M47.26 Other spondylosis with radiculopathy, lumbar region; Z79.899 Other long term (current) drug therapy
CPT/HCPCS: 36415; 82306; 83036

== ENCOUNTER 2021-05-07 18:31 | Inpatient (IN) | payer MEDICARE, OTHER ==
[2021-05-07] MEDS ORDERED: MORPHINE SULFATE 4 MG/ML SYRINGE IVP STA (19:11)
--- NOTE | 2021-05-07 19:25 | XR ---
EXAMINATION TYPE: XR chest 2V DATE OF EXAM: 05/07/2021 COMPARISON: 04/14/2021 HISTORY: Difficulty breathing TECHNIQUE: 3 views FINDINGS: There is no heart failure nor confluent pneumonic infiltrate. Costophrenic angles are clear . There are chest leads. Bony thorax is intact. IMPRESSION: No active cardiopulmonary disease. Normal heart. No change.
[2021-05-07 19:34] LABS: Basophils # (A) 0.1 k/uL (0-0.2); Basophils % (A) 1 %; Eosinophils # (A) 0.3 k/uL (0-0.7); Eosinophils % (A) 3 %; HCT 37.5 % (39.0-53.0); HGB 12.2 gm/dL (13.0-17.5); Lymphocytes # (A) 1.6 k/uL (1.0-4.8); Lymphocytes % (A) 17 %; MCH 34.3 pg (25.0-35.0); MCHC 32.6 g/dL (31.0-37.0); MCV 105.2 fL (80.0-100.0); Macrocytosis Slight; Mean Platelet Volume 6.8; Monocytes # (A) 0.6 k/uL (0-1.0); Monocytes % (A) 6 %; Neutrophils # (A) 6.9 k/uL (1.3-7.7); Neutrophils % (A) 70 %; Platelet Count 369 k/uL (150-450); RBC 3.56 m/uL (4.30-5.90); RDW 13.2 % (11.5-15.5); WBC 9.8 k/uL (3.8-10.6)
[2021-05-07 19:35] LABS: Appearance,Urine Clear (Clear); Bilirubin,Urine Negative (Negative); Blood,Urine Negative (Negative); Color,Urine Light Yellow; Glucose,Urine (UA) Negative (Negative); Ketones,Urine Negative (Negative); Leukocyte Esterase,Urine Negative (Negative); Nitrite,Urine Negative (Negative); PH, Urine 5.5 (5.0-8.0); Protein,Urine Negative (Negative); Specific Gravity,Urine 1.004 (1.001-1.035); Urobilinogen,Urine <2.0 mg/dL (<2.0)
[2021-05-07 19:43] LABS: INR 0.9 (<1.2); Partial Thromboplastin Time 25.4 sec (22.0-30.0); Prothrombin Time 9.7 sec (9.0-12.0)
[2021-05-07 19:54] LABS: ALT 12 U/L (4-49); AST 29 U/L (17-59); African American GFR (CKD) >90 (>60 ml/min/1.73 sqM); Albumin 3.7 g/dL (3.5-5.0); Alkaline Phosphatase 83 U/L (38-126); Anion Gap 10 mmol/L; Blood Urea Nitrogen 10 mg/dL (9-20); Calcium 8.3 mg/dL (8.4-10.2); Carbon Dioxide 25 mmol/L (22-30); Chloride 88 mmol/L (98-107); Glucose 89 mg/dL (74-99); Magnesium 2.1 mg/dL (1.6-2.3); Non-African American GFR(CKD) >90 (>60 ml/min/1.73 sqM); Potassium 3.8 mmol/L (3.5-5.1); Sodium 123 mmol/L (137-145); Total Bilirubin 0.5 mg/dL (0.2-1.3); Total Protein 6.6 g/dL (6.3-8.2)
--- NOTE | 2021-05-07 20:11 | ED ---
SOB HPI - General Chief Complaint: Shortness of Breath Stated Complaint: SOB, weakness Source: EMS Mode of arrival: EMS Limitations: no limitations - History of Present Illness Initial Comments: 66-year-old male with past medical history of A. fib not on anticoagulation, congestive heart failure and peripheral edema on Lasix, COPD presents emergency room with reported shortness of breath. States that for the past 3 days he has had increased weakness and shortness of breath especially with ambulation. He has been using his breathing treatments as directed without improvement in his symptoms. Does have audible wheezing. Was on the steroids during his hospitalization in February. Denies fevers or productive sputum. He has had worsening lower extremity edema and weight gain. Has been using his diuretics as directed without any missed doses. He denies any chest pain. No history of DVT or PE. No other alleviating, tube cutter modifying factors - Related Data Home Medications Medication Instructions Recorded Confirmed Latanoprost [Xalatan 0.005%] 1 drop LEFT EYE HS 10/31/17 05/07/21 Vit C/E/Zn/Coppr/Lutein/Zeaxan 1 tab PO BID 08/22/19 05/07/21 [Preservision Areds 2 Softgel] Albuterol Nebulized [Ventolin 2.5 mg INHALATION RT-QID PRN 08/13/20 05/07/21 Nebulized] Acetaminophen [Tylenol] 500 mg PO QID PRN 02/09/21 05/07/21 Metoprolol Succinate (ER) [Toprol 25 mg PO DAILY 02/09/21 05/07/21 XL] Multivit-Min/Folic/Vit K/Lycop 1 tab PO DAILY 02/09/21 05/07/21 [Men's Multivitamin Tablet] Albuterol Sulfate [Proventil Hfa] 2 puff INHALATION RT-QID PRN 03/06/21 05/07/21 Budesonide/Formoterol Fumarate 2 puff INHALATION RT-BID 03/06/21 05/07/21 [Symbicort 80-4.5 Mcg Inhaler] Ibuprofen [Motrin] 800 mg PO TID PRN 03/06/21 05/07/21 Rosuvastatin Calcium [Crestor] 10 mg PO HS 03/06/21 05/07/21 DULoxetine HCL [Cymbalta] 30 mg PO DAILY 05/07/21 05/07/21 Previous Rx's Medication Instructions Recorded Furosemide [Lasix] 40 mg PO DAILY 30 Days #30 tab 09/12/19 Spironolactone [Aldactone] 25 mg PO DAILY 30 Days #30 tab 09/12/19 Allergies Allergy/AdvReac Type Severity Reaction Status Date / Time aspirin Allergy Rash/Hives Verified 05/07/21 19:07 Review of Systems ROS Statement: Those systems with pertinent positive or pertinent negative responses have been documented in the HPI. ROS Other: All systems not noted in ROS Statement are negative. Past Medical History Past Medical History: Atrial Fibrillation, Heart Failure, COPD, Eye Disorder, Hyperlipidemia, Osteoarthritis (OA), Pneumonia Additional Past Medical History / Comment(s): Paroxysmal Afib, chronic systolic chf, bronchitectoasis/bronchitis, Herring's esophagus, hiatal hernia, anemia, rectus sheath hematoma, L eye glaucoma, chronic low back and L knee pain, does not tolerate statins. History of Any Multi-Drug Resistant Organisms: None Reported Past Surgical History: Orthopedic Surgery Additional Past Surgical History / Comment(s): LT SHOULDER sx in 2009 with hardware., bronchoscopy Past Anesthesia/Blood Transfusion Reactions: No Reported Reaction Past Psychological History: No Psychological Hx Reported Smoking Status: Former smoker Past Alcohol Use History: Occasional Past Drug Use History: None Reported - Past Family History Daughter(s) Family Medical History: No Reported History Father Family Medical History: No Reported History Additional Family Medical History / Comment(s): Father was healthy Mother Family Medical History: No Reported History Additional Family Medical History / Comment(s): Mother was healthy. General Exam Limitations: no limitations Course Vital Signs 05/07/21 18:35 Temperature 97.9 F Pulse Rate 70 Respiratory 20 Rate Blood Pressure 128/64 O2 Sat by Pulse 98 Oximetry Medical Decision Making - Medical Decision Making On arrival patient was placed in room 3. A thorough history and physical exam was performed. IV was established. Patient given 125 of Solu-Medrol and a DuoNeb breathing treatment. Patient complaining of lower extremity pain and therefore 4 mg of morphine is ordered. Patient saturates 98% on room air. Laboratory studies are reviewed demonstrate a sodium of 123. X-ray demonstrates no acute process. Urine studies are sent for evaluation. He is given a dose of Lasix for suspected hypervolemic hyponatremia. Patient will be admitted to Dr. sheet who accepts admission. Steroids and diuretics ordered for the floor. Patient agreed to this plan and was awaiting a bed in stable condition - Lab Data Result diagrams: 05/07/21 19:11 05/07/21 19:11 Lab Results 05/07/21 05/07/21 05/07/21 Range/Units 19:11 19:11 19:11 WBC 9.8 (3.8-10.6) k/uL RBC 3.56 L (4.30-5.90) m/uL Hgb 12.2 L (13.0-17.5) gm/dL Hct 37.5 L (39.0-53.0) % MCV 105.2 H (80.0-100.0) fL MCH 34.3 (25.0-35.0) pg MCHC 32.6 (31.0-37.0) g/dL RDW 13.2 (11.5-15.5) % Plt Count 369 (150-450) k/uL MPV 6.8 Neutrophils % 70 % Lymphocytes % 17 % Monocytes % 6 % Eosinophils % 3 % Basophils % 1 % Neutrophils # 6.9 (1.3-7.7) k/uL Lymphocytes # 1.6 (1.0-4.8) k/uL Monocytes # 0.6 (0-1.0) k/uL Eosinophils # 0.3 (0-0.7) k/uL Basophils # 0.1 (0-0.2) k/uL Macrocytosis Slight PT 9.7 (9.0-12.0) sec INR 0.9 (<1.2) APTT 25.4 (22.0-30.0) sec Sodium (137-145) mmol/L Potassium (3.5-5.1) mmol/L Chloride (98-107) mmol/L Carbon Dioxide (22-30) mmol/L Anion Gap mmol/L BUN (9-20) mg/dL Creatinine (0.66-1.25) mg/dL Est GFR (CKD-EPI)AfAm (>60 ml/min/1.73 sqM) Est GFR (CKD-EPI)NonAf (>60 ml/min/1.73 sqM) Glucose (74-99) mg/dL Plasma Lactic Acid Hugo (0.7-2.0) mmol/L Calcium (8.4-10.2) mg/dL Magnesium (1.6-2.3) mg/dL Total Bilirubin (0.2-1.3) mg/dL AST (17-59) U/L ALT (4-49) U/L Alkaline Phosphatase (38-126) U/L Troponin I (0.000-0.034) ng/mL NT-Pro-B Natriuret Pep pg/mL Total Protein (6.3-8.2) g/dL Albumin (3.5-5.0) g/dL Urine Color Light Yellow Urine Appearance Clear (Clear) Urine pH 5.5 (5.0-8.0) Ur Specific [place] 1.004 (1.001-1.035) Urine Protein Negative (Negative) Urine Glucose (UA) Negative (Negative) Urine Ketones Negative (Negative) Urine Blood Negative (Negative) Urine Nitrite Negative (Negative) Urine Bilirubin Negative (Negative) Urine Urobilinogen <2.0 (<2.0) mg/dL Ur Leukocyte Esterase Negative (Negative) 05/07/21 05/07/21 05/07/21 Range/Units 19:11 19:11 19:11 WBC (3.8-10.6) k/uL RBC (4.30-5.90) m/uL Hgb (13.0-17.5) gm/dL Hct (39.0-53.0) % MCV (80.0-100.0) fL MCH (25.0-35.0) pg MCHC (31.0-37.0) g/dL RDW (11.5-15.5) % Plt Count (150-450) k/uL MPV Neutrophils % % Lymphocytes % % Monocytes % % Eosinophils % % Basophils % % Neutrophils # (1.3-7.7) k/uL Lymphocytes # (1.0-4.8) k/uL Monocytes # (0-1.0) k/uL Eosinophils # (0-0.7) k/uL Basophils # (0-0.2) k/uL Macrocytosis PT (9.0-12.0) sec INR (<1.2) APTT (22.0-30.0) sec Sodium 123 L (137-145) mmol/L Potassium 3.8 (3.5-5.1) mmol/L Chloride 88 L (98-107) mmol/L Carbon Dioxide 25 (22-30) mmol/L Anion Gap 10 mmol/L BUN 10 (9-20) mg/dL Creatinine 0.63 L (0.66-1.25) mg/dL Est GFR (CKD-EPI)AfAm >90 (>60 ml/min/1.73 sqM) Est GFR (CKD-EPI)NonAf >90 (>60 ml/min/1.73 sqM) Glucose 89 (74-99) mg/dL Plasma Lactic Acid Hugo 1.6 (0.7-2.0) mmol/L Calcium 8.3 L (8.4-10.2) mg/dL Magnesium 2.1 (1.6-2.3) mg/dL Total Bilirubin 0.5 (0.2-1.3) mg/dL AST 29 (17-59) U/L ALT 12 (4-49) U/L Alkaline Phosphatase 83 (38-126) U/L Troponin I <0.012 (0.000-0.034) ng/mL NT-Pro-B Natriuret Pep pg/mL Total Protein 6.6 (6.3-8.2) g/dL Albumin 3.7 (3.5-5.0) g/dL Urine Color Urine Appearance (Clear) Urine pH (5.0-8.0) Ur Specific [place] (1.001-1.035) Urine Protein (Negative) Urine Glucose (UA) (Negative) Urine Ketones (Negative) Urine Blood (Negative) Urine Nitrite (Negative) Urine Bilirubin (Negative) Urine Urobilinogen (<2.0) mg/dL Ur Leukocyte Esterase (Negative) 05/07/21 Range/Units 19:11 WBC (3.8-10.6) k/uL RBC (4.30-5.90) m/uL Hgb (13.0-17.5) gm/dL Hct (39.0-53.0) % MCV (80.0-100.0) fL MCH (25.0-35.0) pg MCHC (31.0-37.0) g/dL RDW (11.5-15.5) % Plt Count (150-450) k/uL MPV Neutrophils % % Lymphocytes % % Monocytes % % Eosinophils % % Basophils % % Neutrophils # (1.3-7.7) k/uL Lymphocytes # (1.0-4.8) k/uL Monocytes # (0-1.0) k/uL Eosinophils # (0-0.7) k/uL Basophils # (0-0.2) k/uL Macrocytosis PT (9.0-12.0) sec INR (<1.2) APTT (22.0-30.0) sec Sodium (137-145) mmol/L Potassium (3.5-5.1) mmol/L Chloride (98-107) mmol/L Carbon Dioxide (22-30) mmol/L Anion Gap mmol/L BUN (9-20) mg/dL Creatinine (0.66-1.25) mg/dL Est GFR (CKD-EPI)AfAm (>60 ml/min/1.73 sqM) Est GFR (CKD-EPI)NonAf (>60 ml/min/1.73 sqM) Glucose (74-99) mg/dL Plasma Lactic Acid Hugo (0.7-2.0) mmol/L Calcium (8.4-10.2) mg/dL Magnesium (1.6-2.3) mg/dL Total Bilirubin (0.2-1.3) mg/dL AST (17-59) U/L ALT (4-49) U/L Alkaline Phosphatase (38-126) U/L Troponin I (0.000-0.034) ng/mL NT-Pro-B Natriuret Pep 641 pg/mL Total Protein (6.3-8.2) g/dL Albumin (3.5-5.0) g/dL Urine Color Urine Appearance (Clear) Urine pH (5.0-8.0) Ur Specific [place] (1.001-1.035) Urine Protein (Negative) Urine Glucose (UA) (Negative) Urine Ketones (Negative) Urine Blood (Negative) Urine Nitrite (Negative) Urine Bilirubin (Negative) Urine Urobilinogen (<2.0) mg/dL Ur Leukocyte Esterase (Negative) EKG demonstrates sinus rhythm with PACs. Rate of 79. NC interval 156. QRS 90. QTC 430. Peak T waves v3 through V6. No acute ST segment elevation or depression. 05/07/21 20:08 Disposition Clinical Impression: Acute respiratory insufficiency, Acute exacerbation of chronic obstructive pulmonary disease, Congestive heart failure Disposition: ADMITTED IP TO THIS HOSP Condition: Stable Is patient prescribed a controlled substance at d/c from ED?: No Referrals: Bia Anderson MD [Primary Care Provider] - 1-2 days Decision to Admit Reason: Admit from EC Decision Date: 05/07/21 Decision Time: 21:13
[2021-05-07] MEDS ORDERED: IPRATROPIUM-ALBUTEROL 3 ML NEB INHALATION STA (20:13)
[2021-05-07] MEDS ORDERED: methylPREDNISolone SOD SUCCI 125 MG/2 ML VIAL IV STA (20:13)
[2021-05-07] MEDS ORDERED: IPRATROPIUM-ALBUTEROL 3 ML NEB INHALATION PRN (21:13)
[2021-05-07] MEDS ORDERED: NALOXONE 0.4 MG/ML 1 ML VIAL IV PRN (21:14)
[2021-05-07] MEDS ORDERED: IBUPROFEN 800 MG TAB PO PRN (21:16)
[2021-05-07] MEDS ORDERED: FUROSEMIDE 10 MG/ML 4 ML VIAL IV STA (21:17)
[2021-05-07] MEDS: ATORVASTATIN 20 MG TAB PO SCH (21:33)
[2021-05-07 22:00] LABS: Creatinine,Urine Random 17.2 mg/dL
[2021-05-07] MEDS: MORPHINE SULFATE 4 MG/ML SYRINGE IVP PRN (22:09)
[2021-05-07] MEDS: LATANOPROST 0.005% OPHTH DROPS 2.5 ML BTL LEFT EYE SCH (23:50)
[2021-05-08] MEDS ORDERED: methylPREDNISolone SOD SUCCI 40 MG/ML 1 ML VIAL IV SCH (05:00)
[2021-05-08] MEDS: MORPHINE SULFATE 4 MG/ML SYRINGE IVP PRN ×3 (05:10→20:55)
[2021-05-08 07:05] LABS: Basophils % (A) 0 %; Eosinophils % (A) 0 %; HCT 39.1 % (39.0-53.0); HGB 12.9 gm/dL (13.0-17.5); Lymphocytes # (A) 0.4 k/uL (1.0-4.8); Lymphocytes % (A) 5 %; MCH 34.5 pg (25.0-35.0); MCHC 33.1 g/dL (31.0-37.0); MCV 104.2 fL (80.0-100.0); Macrocytosis Slight; Mean Platelet Volume 6.9; Monocytes # (A) 0.1 k/uL (0-1.0); Monocytes % (A) 1 %; Neutrophils % (A) 94 %; Platelet Count 393 k/uL (150-450); RBC 3.76 m/uL (4.30-5.90); RDW 12.6 % (11.5-15.5); WBC 9.6 k/uL (3.8-10.6)
[2021-05-08 07:29] LABS: African American GFR (CKD) >90 (>60 ml/min/1.73 sqM); Anion Gap 11 mmol/L; Blood Urea Nitrogen 13 mg/dL (9-20); Calcium 8.9 mg/dL (8.4-10.2); Carbon Dioxide 26 mmol/L (22-30); Chloride 91 mmol/L (98-107); Glucose 167 mg/dL (74-99); Non-African American GFR(CKD) >90 (>60 ml/min/1.73 sqM); Potassium 4.1 mmol/L (3.5-5.1); Sodium 128 mmol/L (137-145)
[2021-05-08] MEDS: MULTIVITAMINS, THERA 1 EACH TAB PO SCH (07:32)
[2021-05-08] MEDS: VIT A,C & E-LUTEIN-MINERALS 1 EACH TAB PO SCH ×2 (07:32→20:53)
[2021-05-08] MEDS: DULoxetine HCL 30 MG CAPSULE.DR PO SCH (07:32)
[2021-05-08] MEDS: METOPROLOL SUCCINATE (ER) 25 MG TAB.ER.24H PO SCH (07:32)
[2021-05-08] MEDS: SPIRONOLACTONE 25 MG TAB PO SCH (07:32)
[2021-05-08] MEDS ORDERED: SYMBICORT 80-4.5 MCG INHALER INHALATION SCH (08:00)
--- NOTE | 2021-05-08 10:08 | XR ---
Left foot. HISTORY: Left foot pain COMPARISON: None. TECHNIQUE: 3 portable views left foot were obtained. Lines: The osseous structures are diffusely osteopenic. There is no fracture, dislocation or focal intraosse ous abnormality. There is no cortical destruction or periosteal reaction. There is no soft tissue calcification or gas . IMPRESSION: Diffuse osteopenia with no other significant abnormality seen.
--- NOTE | 2021-05-08 11:39 | P.HPIM ---
History of Present Illness This is a pleasant 66 years old male with past medical history of Atrial Fibrillation, Heart Failure, COPD, Hyperlipidemia, Osteoarthritis chronic systolic chf, bronchitectoasis/bronchitis, Herring's esophagus, hiatal hernia, anemia, rectus sheath hematoma, L eye glaucoma, chronic low back and L knee pain, does not tolerate statins. His mechanic's assistant is Dr. Sr for CHF Presents because shortness of breath for 3 days duration. Patient says that is been having dyspnea for the last 3-4 days and was getting worse and helped by his usual nebulizers and inhalers, associated with little occasional off with little phlegm which is crease mesh yellow in color. He has chest pain with coughing appointments/10. Metamucil once parents on both sides felt like sharp like a knife and the case by deep breathing. Also has been complaining from chronic bilateral leg pain and more on his knees. He denies any change in bowel habits, no urinary complaints, no headache, dizziness or numbness and weakness. He has chronic numbness in his both feet and he follow-up with the urologist Dr. Chilango Lara. He quit smoking 3 years ago, occasional alcohol, no illicit drugs. Vitals stable, blood pressure is 97% on room air and patient is afebrile. Labs showing normal WBC 9.6, hemoglobin 12.9, platelet level is normal. INR 0.9, sodium was low at 123, rest of BMP and liver enzymes are unremarkable except for hyponatremia . Troponin is negative. ProBNP is normal 641, urinalysis is negative, urine osmolality is low 153 and 235. EKG showed normal sinus rhythm at [address]-T changes Chest x-ray: No active cardiopulmonary process. Morphine and breathing treatment Review of Systems CONSTITUTIONAL: No fever, no malaise, no fatigue. HEENT: No recent visual problems or hearing problems. Denied any sore throat. CARDIOVASCULAR: No orthopnea, PND, no palpitations, no syncope. PULMONARY: No chest wall tenderness no hemoptysis. GASTROINTESTINAL: No diarrhea, no nausea, no vomiting, no abdominal pain. Normoactive bowel sounds. NEUROLOGICAL: No headaches, no weakness, no numbness. HEMATOLOGICAL: Denies any bleeding or petechiae. GENITOURINARY: Denies any burning micturition, frequency, or urgency. MUSCULOSKELETAL/RHEUMATOLOGICAL: Denies any joint pain, swelling, or any muscle pain. ENDOCRINE: Denies any polyuria or polydipsia. Past Medical History Past Medical History: Atrial Fibrillation, Heart Failure, COPD, Eye Disorder, Hyperlipidemia, Osteoarthritis (OA), Pneumonia Additional Past Medical History / Comment(s): Paroxysmal Afib, chronic systolic chf, bronchitectoasis/bronchitis, Herring's esophagus, hiatal hernia, anemia, rectus sheath hematoma, L eye glaucoma, chronic low back and L knee pain, does not tolerate statins. History of Any Multi-Drug Resistant Organisms: None Reported Past Surgical History: Orthopedic Surgery Additional Past Surgical History / Comment(s): LT SHOULDER sx in 2009 with hardware., bronchoscopy Past Anesthesia/Blood Transfusion Reactions: No Reported Reaction Past Psychological History: No Psychological Hx Reported Additional Psychological History / Comment(s): Pt resides with his daughter and son in law. He uses a walker to ambulate. He does not drive, he uses the bus to go places. Smoking Status: Former smoker Past Alcohol Use History: Occasional Additional Past Alcohol Use History / Comment(s): Pt started smoking i 1975 and quit in 2018 Past Drug Use History: None Reported - Past Family History Daughter(s) Family Medical History: No Reported History Father Family Medical History: No Reported History Additional Family Medical History / Comment(s): Father was healthy Mother Family Medical History: No Reported History Additional Family Medical History / Comment(s): Mother was healthy. Medications and Allergies Home Medications Medication Instructions Recorded Confirmed Type Latanoprost [Xalatan 0.005%] 1 drop LEFT EYE HS 10/31/17 05/07/21 History Vit C/E/Zn/Coppr/Lutein/Zeaxan 1 tab PO BID 08/22/19 05/07/21 History [Preservision Areds 2 Softgel] Furosemide [Lasix] 40 mg PO DAILY 30 Days #30 tab 09/12/19 05/07/21 Rx Spironolactone [Aldactone] 25 mg PO DAILY 30 Days #30 tab 09/12/19 05/07/21 Rx Albuterol Nebulized [Ventolin 2.5 mg INHALATION RT-QID PRN 08/13/20 05/07/21 History Nebulized] Acetaminophen [Tylenol] 500 mg PO QID PRN 02/09/21 05/07/21 History Metoprolol Succinate (ER) [Toprol 25 mg PO DAILY 02/09/21 05/07/21 History XL] Multivit-Min/Folic/Vit K/Lycop 1 tab PO DAILY 02/09/21 05/07/21 History [Men's Multivitamin Tablet] Albuterol Sulfate [Proventil Hfa] 2 puff INHALATION RT-QID PRN 03/06/21 05/07/21 History Budesonide/Formoterol Fumarate 2 puff INHALATION RT-BID 03/06/21 05/07/21 History [Symbicort 80-4.5 Mcg Inhaler] Ibuprofen [Motrin] 800 mg PO TID PRN 03/06/21 05/07/21 History Rosuvastatin Calcium [Crestor] 10 mg PO HS 03/06/21 05/07/21 History DULoxetine HCL [Cymbalta] 30 mg PO DAILY 05/07/21 05/07/21 History Allergies Allergy/AdvReac Type Severity Reaction Status Date / Time aspirin Allergy Rash/Hives Verified 05/07/21 19:07 Physical Exam Vitals: Vital Signs Temp Pulse Pulse Resp BP BP Pulse Ox 05/08/21 03:04 98.2 F 102 H 17 131/68 97 05/07/21 22:03 82 18 111/69 99 05/07/21 21:26 80 05/07/21 21:17 81 05/07/21 20:45 79 18 128/67 99 05/07/21 19:45 78 18 127/76 99 05/07/21 18:35 97.9 F 70 20 128/64 98 Intake and Output 05/07/21 05/08/21 05/08/21 21:59 06:59 14:59 Output Total Balance Output: Urine Other: # Voids # Bowel Movements Weight GENERAL: The patient is alert and oriented x3, not in any acute distress. Obese with BMI 31.4 HEENT: Pupils are round and equally reacting to light. EOMI. No scleral icterus. No conjunctival pallor. Normocephalic, atraumatic. No pharyngeal erythema. No thyromegaly. CARDIOVASCULAR: S1 and S2 present. No murmurs, rubs, or gallops. PULMONARY: Chest is clear to auscultation, no wheezing or crackles. ABDOMEN: Soft, nontender, nondistended, normoactive bowel sounds. No palpable organomegaly. MUSCULOSKELETAL: No joint swelling or deformity. -EXTREMITIES: No cyanosis, clubbing, bilateral patellar ligament edema 3+ NEUROLOGICAL: Gross neurological examination did not reveal any focal deficits. SKIN: No rashes. No petechiae Results CBC & Chem 7: 05/08/21 06:27 05/08/21 06:27 Labs: Abnormal Lab Results - Last 24 Hours (Table) 05/07/21 05/07/21 05/07/21 Range/Units 19:11 19:11 19:11 RBC 3.56 L (4.30-5.90) m/uL Hgb 12.2 L (13.0-17.5) gm/dL Hct 37.5 L (39.0-53.0) % MCV 105.2 H (80.0-100.0) fL Sodium 123 L (137-145) mmol/L Chloride 88 L (98-107) mmol/L Creatinine 0.63 L (0.66-1.25) mg/dL Osmolality 269 L (280-301) mosm/kg Calcium 8.3 L (8.4-10.2) mg/dL Thrombosis Risk Factor Assmnt - Choose All That Apply Each Factor Represents 1 point: Abnormal pulmonary function (COPD), Obesity (BMI >25) Each Risk Factor Represents 2 Points: Age 61-74 years Other congenital or acquired thrombophilia - If yes, enter type in comment: No Thrombosis Risk Factor Assessment Total Risk Factor Score: 4 Thrombosis Risk Factor Assessment Level: Moderate Risk Assessment and Plan Assessment: Acute COPD exacerbation hypovolemic hyponatremia, improving Acute on Chronic systolic heart failure, with bilateral feet and leg swelling. And no pulmonary congestion Paroxysmal atrial fibrillation, not on anticoagulation Peripheral neuropathy Hyperlipidemia History of osteoarthritis History of bronchiectasis and bronchitis History of Herring's esophagus Plan: This is a pleasant 66 years old male who presents with COPD and hyponatremia Continue with Solu-Medrol, pulmonary consult continue with IV Lasix Monitor sodium level and nephrology consult. Continue with fluid restriction 1200 mL per day. [facility] Labs and medication were reviewed.. Continue same treatment. Continue with symptomatic treatment. Resume home medication. Monitor lytes and vitals. DVT and GI prophylaxis. Further recommendations depends on the clinical course of the patient DVT prophylaxis: Subcutaneous heparin GI Prophylaxis: Pepcid PT/OT: Pending Prognosis is guarded
[2021-05-08] MEDS: IPRATROPIUM-ALBUTEROL 3 ML NEB INHALATION SCH ×3 (12:08→20:58)
[2021-05-08] MEDS: methylPREDNISolone SOD SUCCI 125 MG/2 ML VIAL IV SCH ×2 (12:24→17:32)
[2021-05-08] MEDS: FUROSEMIDE 10 MG/ML 4 ML VIAL IV SCH ×2 (12:24→20:54)
--- NOTE | 2021-05-08 12:28 | US ---
EXAMINATION TYPE: US venous doppler duplex LE DATE OF EXAM: 05/08/2021 12:13 PM COMPARISON: NONE CLINICAL HISTORY: leg swelling SIDE PERFORMED: Bilateral TECHNIQUE: The lower extremity deep venous system is examined utilizing real time linear array sonog colton with graded compression, doppler sonography and color-flow sonography. VESSELS IMAGED: Common Femoral Vein Deep Femoral Vein Greater Saphenous Vein * Femoral Vein Popliteal Vein Small Saphenous Vein * Proximal Calf Veins, patient unable to abduct legs/not seen (* superficial vessels) Right Leg: Negative for DVT Left Leg: Negative for DVT IMPRESSION: The deep venous systems are patent and compressible with augmentable flow throughout and there is no evidence of bilateral lower extremity DVT.
--- NOTE | 2021-05-08 12:35 | P.CNPUL ---
History of Present Illness Consult date: 05/08/21 Requesting physician: Luan Page Reason for consult: dyspnea, COPD Chief complaint: Shortness of breath, cough, congestion History of present illness: This is a pleasant 66-year-old male patient with a known history of atrial fibrillation, congestive heart failure, Herring's esophagus, chronic obstructive pulmonary disease in a former smoker of 45 years quit in 2018, COVID-19 infection received monoclonal antibodies, not vaccinated and was hospitalized back in February 2021. He presented here to the emergency room yesterday with complaints of breath, cough congestion greenish yellow sputum. He is admitted for COPD exacerbation. Chest x-ray revealed no acute pulmonary process. Normal heart size. White count 9.6. Hemoglobin 12.9. MCV 104. Sodium 128. Potassium 4.1. BUN 13. Creatinine 0.66. Urinalysis clear. He is seen today in consultation on the regular medical floor. He is currently resting comfortably in bed. Awake and alert in no acute distress. He is maintaining good O2 saturations in the 90s on room air. He's been afebrile. Hemodynamically stable. EKG reveals normal sinus rhythm with occasional PACs. X-ray of the left foot reveals diffuse osteopenia but no acute fracture. He's been initiated on DuoNeb inhalations, Pulmicort and Perforomist inhalations, IV Solu-Medrol. Heparin for DVT prophylaxis. Review of Systems REVIEW OF SYSTEMS: CONSTITUTIONAL: Denies any recent significant weight loss or weight gain. EYES: Denies change in vision. EARS, NOSE, MOUTH, THROAT: Denies headaches, denies sore throat. CARDIOVASCULAR: Denies chest pain, palpitations or syncopal episodes. RESPIRATORY: Positive for shortness of breath, cough, congestion no hemoptysis. GASTROINTESTINAL: Denies change in appetite, denies abdominal pain GENITOURINARY: Denies hematuria, denies infections. MUSKULOSKELETAL: Positive for left foot pain, swelling. INTEGUMENTARY: Denies rash, denies eczema. NEUROLOGICAL: Denies recent memory loss, no recent seizure activity. PSYCHIATRIC: Denies anxiety, denies depression. HEMATOLOGIC/LYMPHATIC: Denies anemia, denies enlarged lymph nodes. Past Medical History Past Medical History: Atrial Fibrillation, Heart Failure, COPD, Eye Disorder, Hyperlipidemia, Osteoarthritis (OA), Pneumonia Additional Past Medical History / Comment(s): Paroxysmal Afib, chronic systolic chf, bronchitectoasis/bronchitis, Herring's esophagus, hiatal hernia, anemia, rectus sheath hematoma, L eye glaucoma, chronic low back and L knee pain, does not tolerate statins. History of Any Multi-Drug Resistant Organisms: None Reported Past Surgical History: Orthopedic Surgery Additional Past Surgical History / Comment(s): LT SHOULDER sx in 2009 with hardware., bronchoscopy Past Anesthesia/Blood Transfusion Reactions: No Reported Reaction Past Psychological History: No Psychological Hx Reported Additional Psychological History / Comment(s): Pt resides with his daughter and son in law. He uses a walker to ambulate. He does not drive, he uses the bus to go places. Smoking Status: Former smoker Past Alcohol Use History: Occasional Additional Past Alcohol Use History / Comment(s): Pt started smoking i 1975 and quit in 2018 Past Drug Use History: None Reported - Past Family History Daughter(s) Family Medical History: No Reported History Father Family Medical History: No Reported History Additional Family Medical History / Comment(s): Father was healthy Mother Family Medical History: No Reported History Additional Family Medical History / Comment(s): Mother was healthy. Medications and Allergies Home Medications Medication Instructions Recorded Confirmed Type Latanoprost [Xalatan 0.005%] 1 drop LEFT EYE HS 10/31/17 05/07/21 History Vit C/E/Zn/Coppr/Lutein/Zeaxan 1 tab PO BID 08/22/19 05/07/21 History [Preservision Areds 2 Softgel] Furosemide [Lasix] 40 mg PO DAILY 30 Days #30 tab 09/12/19 05/07/21 Rx Spironolactone [Aldactone] 25 mg PO DAILY 30 Days #30 tab 09/12/19 05/07/21 Rx Albuterol Nebulized [Ventolin 2.5 mg INHALATION RT-QID PRN 08/13/20 05/07/21 History Nebulized] Acetaminophen [Tylenol] 500 mg PO QID PRN 02/09/21 05/07/21 History Metoprolol Succinate (ER) [Toprol 25 mg PO DAILY 02/09/21 05/07/21 History XL] Multivit-Min/Folic/Vit K/Lycop 1 tab PO DAILY 02/09/21 05/07/21 History [Men's Multivitamin Tablet] Albuterol Sulfate [Proventil Hfa] 2 puff INHALATION RT-QID PRN 03/06/21 05/07/21 History Budesonide/Formoterol Fumarate 2 puff INHALATION RT-BID 03/06/21 05/07/21 History [Symbicort 80-4.5 Mcg Inhaler] Ibuprofen [Motrin] 800 mg PO TID PRN 03/06/21 05/07/21 History Rosuvastatin Calcium [Crestor] 10 mg PO HS 03/06/21 05/07/21 History DULoxetine HCL [Cymbalta] 30 mg PO DAILY 05/07/21 05/07/21 History Allergies Allergy/AdvReac Type Severity Reaction Status Date / Time aspirin Allergy Rash/Hives Verified 05/07/21 19:07 Physical Exam Vitals: Vital Signs Temp Pulse Pulse Resp BP BP Pulse Ox 05/08/21 12:19 72 05/08/21 12:08 72 05/08/21 08:35 80 05/08/21 08:21 80 05/08/21 08:00 98.2 F 90 16 129/69 05/08/21 03:04 98.2 F 102 H 17 131/68 97 05/07/21 22:03 82 18 111/69 99 05/07/21 21:26 80 05/07/21 21:17 81 05/07/21 20:45 79 18 128/67 99 05/07/21 19:45 78 18 127/76 99 05/07/21 18:35 97.9 F 70 20 128/64 98 Intake and Output 05/07/21 05/08/21 05/08/21 21:59 06:59 14:59 Output Total Balance Output: Urine Other: Voiding Method # Voids # Bowel Movements 0 Weight GENERAL EXAM: Alert, very pleasant 66-year-old male, with room air pulse ox of 97% comfortable in no apparent distress. HEAD: Normocephalic/atraumatic. EYES: Normal reaction of pupils, equal size. Conjunctiva pink, sclera white. NOSE: Clear with pink turbinates. THROAT: No erythema or exudates. NECK: No masses, no JVD, no thyroid enlargement, no adenopathy. CHEST: No chest wall deformity. Symmetrical expansion. LUNGS: Equal air entry with end expiratory wheeze, few scattered rhonchi CVS: Irregular rate and rhythm, normal S1 and S2, no gallops, no murmurs, no rubs ABDOMEN: No hepatosplenomegaly, normal bowel sounds, no guarding or rigidity. EXTREMITIES: No clubbing, 1+ lower extremity, no cyanosis, 2+ pulses and upper and lower extremities. MUSCULOSKELETAL: Muscle strength and tone normal. SPINE: No scoliosis or deformity SKIN: No rashes CENTRAL NERVOUS SYSTEM: Alert and oriented -3. No focal deficits, tone is normal in all 4 extremities. PSYCHIATRIC: Alert and oriented -3. Appropriate affect. Intact judgment and insight. Results - Laboratory Findings CBC and BMP: 05/08/21 06:27 05/08/21 06:27 PT/INR, D-dimer PT 9.7 sec (9.0-12.0) 05/07/21 19:11 INR 0.9 (<1.2) 05/07/21 19:11 Abnormal lab findings: Abnormal Labs 05/07/21 05/07/21 05/07/21 19:11 19:11 19:11 RBC 3.56 L Hgb 12.2 L Hct 37.5 L MCV 105.2 H Neutrophils # Lymphocytes # Sodium 123 L Chloride 88 L Creatinine 0.63 L Glucose Osmolality 269 L Calcium 8.3 L Ur Random Sodium 05/07/21 05/08/21 05/08/21 19:11 06:27 06:27 RBC 3.76 L Hgb 12.9 L Hct MCV 104.2 H Neutrophils # 9.0 H Lymphocytes # 0.4 L Sodium 128 L Chloride 91 L Creatinine Glucose 167 H Osmolality Calcium Ur Random Sodium 25 L - Diagnostic Findings Chest x-ray: image reviewed Assessment and Plan Assessment: 1 Acute exacerbation of chronic obstructive pulmonary disease, no evidence of acute pneumonia 2 Forty five year history of chronic tobacco dependence however quit in 2019 3 Hyponatremia, current sodium 128 4 Left foot pain, x-ray reveals no fractures, Dopplers pending 5 History of atrial fibrillation, currently in normal sinus rhythm 6 History of congestive heart failure 7 History of Herring's esophagus 8 Glaucoma 9 Macular degeneration Plan: The patient was seen and evaluated Chest x-ray and labs reviewed Continue bronchodilators, IV Solu-Medrol Obtain a pro-calcitonin Increase his activity as tolerated We will continue to follow and make further recommendations based on his clinical status I have personally seen and examined the patient, performed the documentation and the assessment and plan as written. Number of minutes spent on the visit: 20.
--- NOTE | 2021-05-08 15:44 | P.NPCON ---
History of Present Illness - Reason for Consult hyponatremia - History of Present Illness Patient is a 66-year-old male with history of COPD CHF hypertension and osteoarthritis chronic A. fib and bronchiectasis. He is admitted to the hospital with complaints of shortness of breath ongoing for about 3 days prior to admission. Patient has had cough productive of yellowish phlegm. He denied any fevers or chills. He has underlying history of CHF. Patient has also had increased lower extremity swelling over the past few weeks. No significant diarrhea or vomiting noted. Serum sodium was 123 on admission. Patient received IV Lasix. This morning sodium is 128. Patient states that he had been increasing salt in his diet due to low sodium levels as outpatient. Review of Systems As per HPI, other systems negative Past Medical History Past Medical History: Atrial Fibrillation, Heart Failure, COPD, Eye Disorder, Hyperlipidemia, Osteoarthritis (OA), Pneumonia Additional Past Medical History / Comment(s): Paroxysmal Afib, chronic systolic chf, bronchitectoasis/bronchitis, Herring's esophagus, hiatal hernia, anemia, rectus sheath hematoma, L eye glaucoma, chronic low back and L knee pain, does not tolerate statins. History of Any Multi-Drug Resistant Organisms: None Reported Past Surgical History: Orthopedic Surgery Additional Past Surgical History / Comment(s): LT SHOULDER sx in 2009 with hardware., bronchoscopy Past Anesthesia/Blood Transfusion Reactions: No Reported Reaction Past Psychological History: No Psychological Hx Reported Additional Psychological History / Comment(s): Pt resides with his daughter and son in law. He uses a walker to ambulate. He does not drive, he uses the bus to go places. Smoking Status: Former smoker Past Alcohol Use History: Occasional Additional Past Alcohol Use History / Comment(s): Pt started smoking i 1975 and quit in 2018 Past Drug Use History: None Reported - Past Family History Daughter(s) Family Medical History: No Reported History Father Family Medical History: No Reported History Additional Family Medical History / Comment(s): Father was healthy Mother Family Medical History: No Reported History Additional Family Medical History / Comment(s): Mother was healthy. Medications and Allergies Home Medications Medication Instructions Recorded Confirmed Type Latanoprost [Xalatan 0.005%] 1 drop LEFT EYE HS 10/31/17 05/07/21 History Vit C/E/Zn/Coppr/Lutein/Zeaxan 1 tab PO BID 08/22/19 05/07/21 History [Preservision Areds 2 Softgel] Furosemide [Lasix] 40 mg PO DAILY 30 Days #30 tab 09/12/19 05/07/21 Rx Spironolactone [Aldactone] 25 mg PO DAILY 30 Days #30 tab 09/12/19 05/07/21 Rx Albuterol Nebulized [Ventolin 2.5 mg INHALATION RT-QID PRN 08/13/20 05/07/21 History Nebulized] Acetaminophen [Tylenol] 500 mg PO QID PRN 02/09/21 05/07/21 History Metoprolol Succinate (ER) [Toprol 25 mg PO DAILY 02/09/21 05/07/21 History XL] Multivit-Min/Folic/Vit K/Lycop 1 tab PO DAILY 02/09/21 05/07/21 History [Men's Multivitamin Tablet] Albuterol Sulfate [Proventil Hfa] 2 puff INHALATION RT-QID PRN 03/06/21 05/07/21 History Budesonide/Formoterol Fumarate 2 puff INHALATION RT-BID 03/06/21 05/07/21 History [Symbicort 80-4.5 Mcg Inhaler] Ibuprofen [Motrin] 800 mg PO TID PRN 03/06/21 05/07/21 History Rosuvastatin Calcium [Crestor] 10 mg PO HS 03/06/21 05/07/21 History DULoxetine HCL [Cymbalta] 30 mg PO DAILY 05/07/21 05/07/21 History Allergies Allergy/AdvReac Type Severity Reaction Status Date / Time aspirin Allergy Rash/Hives Verified 05/07/21 19:07 Physical Exam Vitals: Vital Signs Temp Pulse Pulse Resp BP BP Pulse Ox 05/08/21 12:19 72 05/08/21 12:08 72 05/08/21 08:35 80 05/08/21 08:21 80 05/08/21 08:00 98.2 F 90 16 129/69 05/08/21 03:04 98.2 F 102 H 17 131/68 97 05/07/21 22:03 82 18 111/69 99 05/07/21 21:26 80 05/07/21 21:17 81 05/07/21 20:45 79 18 128/67 99 05/07/21 19:45 78 18 127/76 99 05/07/21 18:35 97.9 F 70 20 128/64 98 Intake and Output 05/08/21 05/08/21 05/08/21 06:59 14:59 22:59 Output Total Balance Output: Urine Other: Voiding Method # Voids # Bowel Movements 0 Weight Patient is awake comfortable. He is not in any acute distress. Examination of the heart S1 and S2 Examination of the lungs bilateral breath sounds are heard Abdomen is soft nontender Examination of lower extremities shows chronic edema bilaterally 2+ with chronic skin changes. [employer] exam grossly intact Results - Lab Results Most recent lab results Calcium 8.9 mg/dL (8.4-10.2) 05/08/21 06:27 Magnesium 2.1 mg/dL (1.6-2.3) 05/07/21 19:11 05/08/21 06:27 05/08/21 06:27 Assessment and Plan Assessment: 1. Hyponatremia, hypovolemic, currently improved with IV Lasix 2. CHF exacerbation previous echo in July 2020 showed ejection fraction 55-60%. 3. Acute COPD exacerbation 4. History of Herring's esophagus 5. History of A. fib currently in normal sinus rhythm Plan: Continue to diurese patient Repeat labs in a.m. Patient is advised to avoid high salt intake
[2021-05-08 16:44] LABS: Glucose,Whole Blood 165 mg/dL (75-99)
[2021-05-08 20:39] LABS: Glucose,Whole Blood 217 mg/dL (75-99)
[2021-05-08] MEDS: ATORVASTATIN 20 MG TAB PO SCH (20:53)
[2021-05-08] MEDS: FAMOTIDINE 20 MG/2 ML VIAL IV SCH (20:54)
[2021-05-08] MEDS: LATANOPROST 0.005% OPHTH DROPS 2.5 ML BTL LEFT EYE SCH (20:54)
[2021-05-08] MEDS: INSULIN ASPART (NovoLOG) 100 UNIT/ML VIAL SQ SCH (20:54)
[2021-05-08] MEDS: HEPARIN SODIUM,PORCINE/PF 5,000 UNIT/0.5 ML SYRINGE SQ SCH (20:55)
[2021-05-08] MEDS: BUDESONIDE 1 MG/2 ML NEBU INHALATION SCH (20:58)
[2021-05-08] MEDS: FORMOTEROL FUMARATE 20 MCG/2 ML NEBU INHALATION SCH (20:58)
[2021-05-09] MEDS: methylPREDNISolone SOD SUCCI 125 MG/2 ML VIAL IV SCH ×5 (00:17→23:16)
[2021-05-09] MEDS: MORPHINE SULFATE 4 MG/ML SYRINGE IVP PRN (06:03)
[2021-05-09 06:48] LABS: Glucose,Whole Blood 148 mg/dL (75-99)
[2021-05-09] MEDS: FUROSEMIDE 10 MG/ML 4 ML VIAL IV SCH ×2 (07:48→20:29)
[2021-05-09] MEDS: FAMOTIDINE 20 MG/2 ML VIAL IV SCH ×2 (07:48→20:29)
[2021-05-09] MEDS: DULoxetine HCL 30 MG CAPSULE.DR PO SCH (07:49)
[2021-05-09] MEDS: METOPROLOL SUCCINATE (ER) 25 MG TAB.ER.24H PO SCH (07:49)
[2021-05-09] MEDS: SPIRONOLACTONE 25 MG TAB PO SCH (07:49)
[2021-05-09] MEDS: VIT A,C & E-LUTEIN-MINERALS 1 EACH TAB PO SCH ×2 (07:49→20:29)
[2021-05-09] MEDS: MULTIVITAMINS, THERA 1 EACH TAB PO SCH (07:49)
[2021-05-09] MEDS: HEPARIN SODIUM,PORCINE/PF 5,000 UNIT/0.5 ML SYRINGE SQ SCH ×2 (07:49→20:29)
[2021-05-09] MEDS: INSULIN ASPART (NovoLOG) 100 UNIT/ML VIAL SQ SCH ×4 (07:49→20:37)
[2021-05-09 07:50] LABS: African American GFR (CKD) >90 (>60 ml/min/1.73 sqM); Anion Gap 8 mmol/L; Blood Urea Nitrogen 14 mg/dL (9-20); Carbon Dioxide 29 mmol/L (22-30); Chloride 89 mmol/L (98-107); Glucose 138 mg/dL (74-99); Non-African American GFR(CKD) >90 (>60 ml/min/1.73 sqM); Potassium 3.8 mmol/L (3.5-5.1); Sodium 126 mmol/L (137-145)
[2021-05-09] MEDS: BUDESONIDE 1 MG/2 ML NEBU INHALATION SCH ×2 (08:39→19:11)
[2021-05-09] MEDS: IPRATROPIUM-ALBUTEROL 3 ML NEB INHALATION SCH ×4 (08:39→19:11)
[2021-05-09] MEDS: FORMOTEROL FUMARATE 20 MCG/2 ML NEBU INHALATION SCH ×2 (08:39→19:25)
[2021-05-09 11:38] LABS: Glucose,Whole Blood 181 mg/dL (75-99)
[2021-05-09] MEDS ORDERED: TOLVAPTAN 15 MG 1/2 TABLET PO ONE (12:48)
--- NOTE | 2021-05-09 12:49 | P.PN ---
Subjective Patient is seen in follow-up for hyponatremia. Sodium level 126 today. On IV Lasix. Oral intake fair. No vomiting or diarrhea. Vital signs are stable. General: Awake and alert. HEENT: Head exam is unremarkable. LUNGS:Breath sounds decreased. HEART: Rate and Rhythm are regular. ABDOMEN: Soft, no distention. EXTREMITITES: 1+ edema. Objective - Vital Signs Vital signs: Vital Signs Temp 97.9 F 05/09/21 07:20 Pulse 100 05/09/21 12:36 Resp 17 05/09/21 08:00 BP 168/84 05/09/21 07:20 Pulse Ox 98 05/09/21 07:20 Intake & Output 05/08/21 05/09/21 05/09/21 18:59 06:59 18:59 Output Total 1450 Balance -1450 Output: Urine 1450 Other: Voiding Method Urinal # Bowel Movements 0 0 - Labs CBC & Chem 7: 05/08/21 06:27 05/09/21 07:24 Labs: Abnormal Lab Results - Last 24 Hours (Table) 05/08/21 05/08/21 05/09/21 Range/Units 16:42 20:27 06:46 Sodium (137-145) mmol/L Chloride (98-107) mmol/L Creatinine (0.66-1.25) mg/dL Glucose (74-99) mg/dL POC Glucose (mg/dL) 165 H 217 H 148 H (75-99) mg/dL 05/09/21 05/09/21 Range/Units 07:24 11:36 Sodium 126 L (137-145) mmol/L Chloride 89 L (98-107) mmol/L Creatinine 0.57 L (0.66-1.25) mg/dL Glucose 138 H (74-99) mg/dL POC Glucose (mg/dL) 181 H (75-99) mg/dL Assessment and Plan Plan: Assessment: 1. Hypervolemic hyponatremia. Sodium level 126 today. Urine sodium 25 and urine osmolality 235. Also getting Motrin which can induce SIADH. 2. Lower extremity edema. 3. Acute on chronic diastolic CHF. 4. COPD exacerbation. Plan: 1500 mL fluid restriction. Encouraged oral intake. Maintain IV Lasix. Samsca 7.5 mg once today. Continue to monitor.
--- NOTE | 2021-05-09 13:16 | P.PN ---
Subjective Progress Note Date: 05/09/21 This is a pleasant 66-year-old male patient with a known history of atrial fibrillation, congestive heart failure, Herring's esophagus, chronic obstructive pulmonary disease in a former smoker of 45 years quit in 2019, COVID-19 infection received monoclonal antibodies, not vaccinated and was hospitalized back in February 2021. He presented here to the emergency room yesterday with complaints of breath, cough congestion greenish yellow sputum. He is admitted for COPD exacerbation. Chest x-ray revealed no acute pulmonary process. Normal heart size. White count 9.6. Hemoglobin 12.9. MCV 104. Sodium 128. Potassium 4.1. BUN 13. Creatinine 0.66. Urinalysis clear. He is seen today in consultation on the regular medical floor. He is currently resting comfortably in bed. Awake and alert in no acute distress. He is maintaining good O2 saturations in the 90s on room air. He's been afebrile. Hemodynamically stable. EKG reveals normal sinus rhythm with occasional PACs. X-ray of the left foot reveals diffuse osteopenia but no acute fracture. He's been initiated on DuoNeb inhalations, Pulmicort and Perforomist inhalations, IV Solu-Medrol. Heparin for DVT prophylaxis. On today's evaluation of 05/09/2021, the patient is feeling well and he seems to be slightly less short of breath compared to yesterday. He still bronchospastic and wheezy. His bringing up some minimal amount of mucus. He remains on a combination of DuoNeb nebulized treatments around the clock, and he is also on IV Solu Medrol 60 mg every 6 hours. At the same time, the patient was found to have hyponatremia. Sodium level was at 126. The patient was given a dose of Lasix today by nephrology and the patient was also given a dose of Semsca. Nephrology is on the case regarding the hyponatremia. Noted the initial sodium level was at 123. White cell count is at 9.6 with a hemoglobin of 12.6. The Doppler of the lower extremity of been negative and the patient has no acute cardio pulmonary abnormalities on the chest x-ray. Objective - Vital Signs Vital signs: Vital Signs Temp 97.9 F 05/09/21 07:20 Pulse 100 05/09/21 12:36 Resp 17 05/09/21 08:00 BP 168/84 05/09/21 07:20 Pulse Ox 98 05/09/21 07:20 Intake & Output 05/08/21 05/09/21 05/09/21 18:59 06:59 18:59 Output Total 1450 Balance -1450 Output: Urine 1450 Other: Voiding Method Urinal # Bowel Movements 0 0 - Exam GENERAL EXAM: Alert, very pleasant 66-year-old male, with room air pulse ox of 97% comfortable in no apparent distress. HEAD: Normocephalic/atraumatic. EYES: Normal reaction of pupils, equal size. Conjunctiva pink, sclera white. NOSE: Clear with pink turbinates. THROAT: No erythema or exudates. NECK: No masses, no JVD, no thyroid enlargement, no adenopathy. CHEST: No chest wall deformity. Symmetrical expansion. LUNGS: Equal air entry with end expiratory wheeze, few scattered rhonchi CVS: Irregular rate and rhythm, normal S1 and S2, no gallops, no murmurs, no rubs ABDOMEN: No hepatosplenomegaly, normal bowel sounds, no guarding or rigidity. EXTREMITIES: No clubbing, 1+ lower extremity, no cyanosis, 2+ pulses and upper and lower extremities. MUSCULOSKELETAL: Muscle strength and tone normal. SPINE: No scoliosis or deformity SKIN: No rashes CENTRAL NERVOUS SYSTEM: Alert and oriented -3. No focal deficits, tone is normal in all 4 extremities. PSYCHIATRIC: Alert and oriented -3. Appropriate affect. Intact judgment and insight. - Labs CBC & Chem 7: 05/08/21 06:27 05/09/21 07:24 Labs: Abnormal Lab Results - Last 24 Hours (Table) 05/08/21 05/08/21 05/09/21 Range/Units 16:42 20:27 06:46 Sodium (137-145) mmol/L Chloride (98-107) mmol/L Creatinine (0.66-1.25) mg/dL Glucose (74-99) mg/dL POC Glucose (mg/dL) 165 H 217 H 148 H (75-99) mg/dL 05/09/21 05/09/21 Range/Units 07:24 11:36 Sodium 126 L (137-145) mmol/L Chloride 89 L (98-107) mmol/L Creatinine 0.57 L (0.66-1.25) mg/dL Glucose 138 H (74-99) mg/dL POC Glucose (mg/dL) 181 H (75-99) mg/dL Assessment and Plan Plan: 1 Acute exacerbation of chronic obstructive pulmonary disease, no evidence of acute pneumonia 2 45 py year history of chronic tobacco dependence however quit in 2019 3 Hyponatremia, current sodium 128 4 Left foot pain, x-ray reveals no fractures, Dopplers pending 5 History of atrial fibrillation, currently in normal sinus rhythm 6 History of congestive heart failure 7 History of Herring's esophagus 8 Glaucoma 9 Macular degeneration Plan Continue bronchodilators Continue IV Solu-Medrol Fluid restriction and the findings on the case regarding hyponatremia. The patient was given a dose of Lasix 40 mg IV push in addition to Semsca Patient is an ex-smoker. Doppler of the lower extremities negative We'll continue to follow.
[2021-05-09 16:24] LABS: Glucose,Whole Blood 187 mg/dL (75-99)
[2021-05-09] MEDS: ATORVASTATIN 20 MG TAB PO SCH (20:29)
[2021-05-09] MEDS: LATANOPROST 0.005% OPHTH DROPS 2.5 ML BTL LEFT EYE SCH (20:29)
[2021-05-09 20:46] LABS: Glucose,Whole Blood 144 mg/dL (75-99)
[2021-05-10] MEDS: MORPHINE SULFATE 4 MG/ML SYRINGE IVP PRN ×2 (01:09→20:05)
[2021-05-10] MEDS: methylPREDNISolone SOD SUCCI 125 MG/2 ML VIAL IV SCH ×4 (05:18→20:07)
[2021-05-10 07:07] LABS: Glucose,Whole Blood 141 mg/dL (75-99)
[2021-05-10] MEDS: MULTIVITAMINS, THERA 1 EACH TAB PO SCH (08:52)
[2021-05-10] MEDS: METOPROLOL SUCCINATE (ER) 25 MG TAB.ER.24H PO SCH (08:52)
[2021-05-10] MEDS: DULoxetine HCL 30 MG CAPSULE.DR PO SCH (08:52)
[2021-05-10] MEDS: HEPARIN SODIUM,PORCINE/PF 5,000 UNIT/0.5 ML SYRINGE SQ SCH ×2 (08:52→20:07)
[2021-05-10] MEDS: SPIRONOLACTONE 25 MG TAB PO SCH (08:52)
[2021-05-10] MEDS: VIT A,C & E-LUTEIN-MINERALS 1 EACH TAB PO SCH ×2 (08:52→20:07)
[2021-05-10] MEDS: FUROSEMIDE 10 MG/ML 4 ML VIAL IV SCH (08:52)
[2021-05-10] MEDS: FAMOTIDINE 20 MG/2 ML VIAL IV SCH (08:52)
[2021-05-10] MEDS: INSULIN ASPART (NovoLOG) 100 UNIT/ML VIAL SQ SCH ×4 (08:56→22:29)
[2021-05-10 09:09] LABS: African American GFR (CKD) 112.4 (60.0-200.0); Anion Gap 14.9 mmol/L (10.00-18.00); BUN/Creat Ratio 26.14 Ratio (12.00-20.00); Blood Urea Nitrogen 18.3 mg/dL (9.0-27.0); Calcium 9.2 mg/dL (8.7-10.3); Carbon Dioxide 30.1 mmol/L (20.0-27.5); Magnesium 2.3 mg/dL (1.5-2.4); Potassium 4.6 mmol/L (3.5-5.5)
[2021-05-10] MEDS: FORMOTEROL FUMARATE 20 MCG/2 ML NEBU INHALATION SCH ×2 (09:22→19:27)
[2021-05-10] MEDS: BUDESONIDE 1 MG/2 ML NEBU INHALATION SCH ×2 (09:22→19:27)
[2021-05-10] MEDS: IPRATROPIUM-ALBUTEROL 3 ML NEB INHALATION SCH ×4 (09:22→19:27)
--- NOTE | 2021-05-10 10:10 | P.PN ---
Subjective Progress Note Date: 05/09/21 This is a pleasant 66 years old male with past medical history of Atrial Fibrillation, Heart Failure, COPD, Hyperlipidemia, Osteoarthritis chronic systolic chf, bronchitectoasis/bronchitis, Herring's esophagus, hiatal hernia, anemia, rectus sheath hematoma, L eye glaucoma, chronic low back and L knee pain , does not tolerate statins. 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 Patient says that is been having dyspnea for the last 3-4 days and was getting worse and helped by his usual nebulizers and inhalers, associated with little occasional off with little phlegm which is crease mesh yellow in color. He has chest pain with coughing appointments/10. Metamucil once parents on both sides felt like sharp like a knife and the case by deep breathing. Also has been complaining from chronic bilateral leg pain and more on his knees. He denies any change in bowel habits, no urinary complaints, no headache, dizziness or numbness and weakness. He has chronic numbness in his both feet and he follow-up with the urologist Dr. Chilango Lara. He quit smoking 3 years ago, occasional alcohol, no illicit drugs. Vitals stable, blood pressure is 97% on room air and patient is afebrile. Labs showing normal WBC 9.6, hemoglobin 12.9, platelet level is normal. INR 0.9, sodium was low at 123, rest of BMP and liver enzymes are unremarkable except for hyponatremia . Troponin is negative. ProBNP is normal 641, urinalysis is negative, urine osmolality is low 153 and 235. EKG showed normal sinus rhythm at [address]-T changes Chest x-ray: No active cardiopulmonary process. Morphine and breathing treatment 05/10/2019 Patient is currently sitting in the chair. Awake alert and oriented x3. On room air. Still having bilateral diffuse rhonchi and coarse breath sounds. Patient is being current on IV Solu-Medrol and duo nebs and Pulmicort. Pulmonary is on board. No complaints of chest pain. Patient does have congestive cough and unable to bring out any sputum. No fever no chills.. Laboratory data showed sodium 126 potassium 3.8 chloride 89 BUN 14 creatinine 0.57 Venous duplex scan of the lower extremities showed negative for DVT. Current medications reviewed. Objective - Vital Signs Vital signs: Vital Signs Temp 98.6 F 03/14/22 14:03 Pulse 72 05/09/21 14:03 Resp 18 05/09/21 14:37 BP 104/61 05/09/21 14:03 Pulse Ox 97 05/09/21 14:03 Intake & Output 05/08/21 05/09/21 05/09/21 18:59 06:59 18:59 Output Total 1450 Balance -1450 Output: Urine 1450 Other: Voiding Method Urinal # Bowel Movements 0 0 - Exam GENERAL: The patient is alert and oriented x3, not in any acute distress. Obese with BMI 31.4 HEENT: Pupils are round and equally reacting to light. EOMI. No scleral icterus. No conjunctival pallor. Normocephalic, atraumatic. No pharyngeal erythema. No thyromegaly. CARDIOVASCULAR: S1 and S2 present. No murmurs, rubs, or gallops. PULMONARY: Bilateral diffuse wheezing and coarse breath sounds and scattered rhonchi.. ABDOMEN: Soft, nontender, nondistended, normoactive bowel sounds. No palpable organomegaly. MUSCULOSKELETAL: No joint swelling or deformity. -EXTREMITIES: No cyanosis, clubbing, bilateral patellar ligament edema 3+ NEUROLOGICAL: Gross neurological examination did not reveal any focal deficits. SKIN: No rashes. No petechiae - Labs CBC & Chem 7: 05/08/21 06:27 05/10/21 05:10 Labs: Abnormal Lab Results - Last 24 Hours (Table) 05/08/21 05/08/21 05/09/21 Range/Units 16:42 20:27 06:46 Sodium (137-145) mmol/L Chloride (98-107) mmol/L Creatinine (0.66-1.25) mg/dL Glucose (74-99) mg/dL POC Glucose (mg/dL) 165 H 217 H 148 H (75-99) mg/dL 05/09/21 05/09/21 Range/Units 07:24 11:36 Sodium 126 L (137-145) mmol/L Chloride 89 L (98-107) mmol/L Creatinine 0.57 L (0.66-1.25) mg/dL Glucose 138 H (74-99) mg/dL POC Glucose (mg/dL) 181 H (75-99) mg/dL Assessment and Plan Assessment: Acute COPD exacerbation Hyponatremia. Sodium 128 likely due to decreased solute intake and hypervolemia Acute on Chronic systolic heart failure, with bilateral feet and leg swelling. And no pulmonary congestion Paroxysmal atrial fibrillation, not on anticoagulation Peripheral neuropathy Hyperlipidemia History of osteoarthritis History of bronchiectasis and bronchitis History of Herring's esophagus Plan: This is a pleasant 66 years old male who presents with COPD and hyponatremia Patient is being continued on sorbitol 60 mg every 6 hourly. continue with IV Lasix Monitor sodium level and nephrology consult. Continue with fluid restriction 1200 mL per day. No evidence of DVT of the bilateral lower extremities duplex scan. Labs and medication were reviewed.. Monitor lytes and vitals. DVT and GI prophylaxis. DVT prophylaxis: Subcutaneous heparin GI Prophylaxis: Pepcid PT/OT: Pending Prognosis is guarded Time with Patient: Greater than 30
--- NOTE | 2021-05-10 10:51 | P.PN ---
Subjective Patient is seen in follow-up for hyponatremia. Sodium level 135 today. On IV Lasix. Received 7.5 mg of Samsca 1 yesterday. Oral intake fair. No vomiting or diarrhea. Edema improved. Nonoliguric. Vital signs are stable. General: Awake and alert. HEENT: Head exam is unremarkable. LUNGS:Breath sounds decreased. HEART: Rate and Rhythm are regular. ABDOMEN: Soft, no distention. EXTREMITITES: Trace edema. Objective - Vital Signs Vital signs: Vital Signs Temp 98.0 F 05/10/21 08:00 Pulse 100 05/10/21 09:47 Resp 18 05/10/21 08:00 BP 132/67 05/10/21 08:00 Pulse Ox 97 05/10/21 08:00 Intake & Output 05/09/21 05/10/21 05/10/21 18:59 06:59 18:59 Intake Total 480 240 Output Total 1000 Balance 480 -760 Weight 95.339 kg Intake: Oral 480 240 Output: Urine 1000 Other: Voiding Method Urinal - Labs CBC & Chem 7: 05/08/21 06:27 05/10/21 05:10 Labs: Abnormal Lab Results - Last 24 Hours (Table) 05/09/21 05/09/21 05/09/21 Range/Units 11:36 16:22 20:23 Chloride (96-109) mmol/L Carbon Dioxide (20.0-27.5) mmol/L BUN/Creatinine Ratio (12.00-20.00) Ratio Glucose (70-110) mg/dL POC Glucose (mg/dL) 181 H 187 H 144 H (75-99) mg/dL 05/10/21 05/10/21 Range/Units 05:10 07:06 Chloride 90 L (96-109) mmol/L Carbon Dioxide 30.1 H (20.0-27.5) mmol/L BUN/Creatinine Ratio 26.14 H (12.00-20.00) Ratio Glucose 138 H (70-110) mg/dL POC Glucose (mg/dL) 141 H (75-99) mg/dL Assessment and Plan Plan: Assessment: 1. Hypervolemic hyponatremia. Sodium level 135 today. Urine sodium 25 and urine osmolality 235. Was also getting Motrin which can induce SIADH. Status post Samsca 05/09/2021. 2. Lower extremity edema. Improved with diuresis. 3. Acute on chronic diastolic CHF. 4. COPD exacerbation. Plan: 1500 mL fluid restriction. Encouraged oral intake. Stop IV Lasix. Start torsemide 20 mg daily. Continue to monitor.
[2021-05-10 11:17] LABS: Glucose,Whole Blood 158 mg/dL (75-99)
--- NOTE | 2021-05-10 15:43 | P.PN ---
<Luana Arcos M - Last Filed: 05/10/21 15:37> Subjective Progress Note Date: 05/10/21 Principal diagnosis: Shortness of breath and wheezing This is a pleasant 66-year-old male patient with a known history of atrial fibrillation, congestive heart failure, Herring's esophagus, chronic obstructive pulmonary disease in a former smoker of 45 years quit in 2019, COVID-19 infection received monoclonal antibodies, not vaccinated and was hospitalized back in February 2021. He presented here to the emergency room yesterday with complaints of breath, cough congestion greenish yellow sputum. He is admitted for COPD exacerbation. Chest x-ray revealed no acute pulmonary process. Normal heart size. White count 9.6. Hemoglobin 12.9. MCV 104. Sodium 128. Potassium 4.1. BUN 13. Creatinine 0.66. Urinalysis clear. He is seen today in consultation on the regular medical floor. He is currently resting comfortably in bed. Awake and alert in no acute distress. He is maintaining good O2 saturations in the 90s on room air. He's been afebrile. Hemodynamically stable. EKG reveals normal sinus rhythm with occasional PACs. X-ray of the left foot reveals diffuse osteopenia but no acute fracture. He's been initiated on DuoNeb inhalations, Pulmicort and Perforomist inhalations, IV Solu-Medrol. Heparin for DVT prophylaxis. On today's evaluation of 05/09/2021, the patient is feeling well and he seems to be slightly less short of breath compared to yesterday. He still bronchospastic and wheezy. His bringing up some minimal amount of mucus. He remains on a combination of DuoNeb nebulized treatments around the clock, and he is also on IV Solu Medrol 60 mg every 6 hours. At the same time, the patient was found to have hyponatremia. Sodium level was at 126. The patient was given a dose of Lasix today by nephrology and the patient was also given a dose of Semsca. Nephrology is on the case regarding the hyponatremia. Noted the initial sodium level was at 123. White cell count is at 9.6 with a hemoglobin of 12.6. The Doppler of the lower extremity of been negative and the patient has no acute cardio pulmonary abnormalities on the chest x-ray. On 05/10/2021 patient seen in follow-up on medical surgical floor. He is on room air, sitting up in the recliner, does not appear to be in any acute distress, he states he had one episode of hemoptysis and coughed up about 2 tablespoons of blood tinged phlegm. Still bronchospastic on physical exam. Vital signs are stable, room air pulse ox is 99%, his been afebrile, hemodynamically has been stable, denies any chest discomfort. He remains on IV steroids with Solu-Medrol 60 mg every 6 hours, he is on Pulmicort, Perforomist, he is on DuoNeb. He continues on his home dose Aldactone, he was started on Demadex, and he was given a dose of told wrapped in by nephrology. Serum sodium is currently improved and is up to 135 on today's labs, BUN is 18.3 and creatinine 0.7 Objective - Vital Signs Vital signs: Vital Signs Temp 98.5 F 05/10/21 14:00 Pulse 108 H 05/10/21 14:00 Resp 18 05/10/21 14:00 BP 111/55 05/10/21 14:00 Pulse Ox 99 05/10/21 14:00 Intake & Output 05/09/21 05/10/21 05/10/21 18:59 06:59 18:59 Intake Total 480 240 Output Total 1000 1000 Balance 480 -760 -1000 Weight 95.339 kg Intake: Oral 480 240 Output: Urine 1000 1000 Other: Voiding Method Urinal # Voids 300 - Exam GENERAL EXAM: Alert, very pleasant 66-year-old white male, sitting up in the recliner, on room air, with occasional cough, congestion, and wheezing comfortable in no apparent distress. HEAD: Normocephalic/atraumatic. EYES: Normal reaction of pupils, equal size. Conjunctiva pink, sclera white. NOSE: Clear with pink turbinates. THROAT: No erythema or exudates. NECK: No masses, no JVD, no thyroid enlargement, no adenopathy. CHEST: No chest wall deformity. Symmetrical expansion. LUNGS: Equal air entry with diffuse wheezes CVS: Regular rate and rhythm, normal S1 and S2, no gallops, no murmurs, no rubs ABDOMEN: Soft, nontender. No hepatosplenomegaly, normal bowel sounds, no guarding or rigidity. EXTREMITIES: No clubbing, no edema, no cyanosis, 2+ pulses and upper and lower extremities. MUSCULOSKELETAL: Muscle strength and tone normal. SPINE: No scoliosis or deformity SKIN: No rashes CENTRAL NERVOUS SYSTEM: Alert and oriented -3. No focal deficits, tone is normal in all 4 extremities. PSYCHIATRIC: Alert and oriented -3. Appropriate affect. Intact judgment and insight. - Labs CBC & Chem 7: 05/08/21 06:27 05/10/21 05:10 Labs: Abnormal Lab Results - Last 24 Hours (Table) 05/09/21 05/09/21 05/10/21 Range/Units 16:22 20:23 05:10 Chloride 90 L (96-109) mmol/L Carbon Dioxide 30.1 H (20.0-27.5) mmol/L BUN/Creatinine Ratio 26.14 H (12.00-20.00) Ratio Glucose 138 H (70-110) mg/dL POC Glucose (mg/dL) 187 H 144 H (75-99) mg/dL 05/10/21 05/10/21 Range/Units 07:06 11:16 Chloride (96-109) mmol/L Carbon Dioxide (20.0-27.5) mmol/L BUN/Creatinine Ratio (12.00-20.00) Ratio Glucose (70-110) mg/dL POC Glucose (mg/dL) 141 H 158 H (75-99) mg/dL Assessment and Plan Plan: Assessment: #1. Acute exacerbation of chronic obstructive pulmonary disease with no evidence of acute pneumonia #2. Extensive history of nicotine dependence, patient carries a 97-[id number] smoking history and quit in 2019 #3. Hyponatremia, improved, serum sodium is up to 135 on today's lab #4. Left foot pain, no evidence of fracture on the x-ray, Dopplers bilateral lower extremities were negative for DVT #5. History of atrial fibrillation, paroxysmal, currently in sinus mechanism #6. History of CHF with systolic dysfunction #7. History of Herring's esophagus #8. Glaucoma #9. Macular degeneration #10. Osteoarthritis Plan: Continue IV steroids, continue bronchodilators Patient had episode of hemoptysis, will continue monitoring for any worsening Vital signs are stable, patient is on room air Today's labs have been noted, serum sodium is significantly improved We'll continue to follow his clinical course Not quite ready for discharge I have personally seen and examined the patient, performed the documentation and the assessment and plan as written. Number of minutes spent on the visit: [10] Time with Patient: Less than 30 <Jacques Mitchell - Last Filed: 05/10/21 16:07> Objective - Vital Signs Vital signs: Vital Signs Temp 98.5 F 05/10/21 14:00 Pulse 98 05/10/21 15:59 Resp 18 05/10/21 14:00 BP 111/55 05/10/21 14:00 Pulse Ox 99 05/10/21 14:00 Intake & Output 05/09/21 05/10/21 05/10/21 18:59 06:59 18:59 Intake Total 480 240 Output Total 1000 1000 Balance 480 -760 -1000 Weight 95.339 kg Intake: Oral 480 240 Output: Urine 1000 1000 Other: Voiding Method Urinal # Voids 300 - Labs CBC & Chem 7: 05/08/21 06:27 05/10/21 05:10 Labs: Abnormal Lab Results - Last 24 Hours (Table) 05/09/21 05/09/21 05/10/21 Range/Units 16:22 20:23 05:10 Chloride 90 L (96-109) mmol/L Carbon Dioxide 30.1 H (20.0-27.5) mmol/L BUN/Creatinine Ratio 26.14 H (12.00-20.00) Ratio Glucose 138 H (70-110) mg/dL POC Glucose (mg/dL) 187 H 144 H (75-99) mg/dL 05/10/21 05/10/21 Range/Units 07:06 11:16 Chloride (96-109) mmol/L Carbon Dioxide (20.0-27.5) mmol/L BUN/Creatinine Ratio (12.00-20.00) Ratio Glucose (70-110) mg/dL POC Glucose (mg/dL) 141 H 158 H (75-99) mg/dL Assessment and Plan Plan: I have personally seen and examined the patient and reviewed the documentation. I performed a joint evaluation with the nurse practitioner in this evaluation was done more than 20 minutes. I fully agree with the documentation above and the plan of care.
[2021-05-10 16:51] LABS: Glucose,Whole Blood 124 mg/dL (75-99)
[2021-05-10] MEDS: ATORVASTATIN 20 MG TAB PO SCH (20:07)
[2021-05-10] MEDS: LATANOPROST 0.005% OPHTH DROPS 2.5 ML BTL LEFT EYE SCH (20:07)
[2021-05-10] MEDS: FAMOTIDINE 20 MG TAB PO SCH (20:07)
[2021-05-10] MEDS: ACETAMINOPHEN TAB 500 MG TAB PO PRN (20:09)
[2021-05-11] MEDS: MORPHINE SULFATE 4 MG/ML SYRINGE IVP PRN ×2 (03:51→08:30)
[2021-05-11] MEDS: methylPREDNISolone SOD SUCCI 125 MG/2 ML VIAL IV SCH ×4 (04:46→23:11)
[2021-05-11 06:48] LABS: Glucose,Whole Blood 118 mg/dL (75-99)
[2021-05-11] MEDS: INSULIN ASPART (NovoLOG) 100 UNIT/ML VIAL SQ SCH ×4 (06:53→21:12)
[2021-05-11] MEDS: IPRATROPIUM-ALBUTEROL 3 ML NEB INHALATION SCH ×4 (09:19→20:37)
[2021-05-11] MEDS: BUDESONIDE 1 MG/2 ML NEBU INHALATION SCH ×2 (09:19→20:37)
[2021-05-11] MEDS: FORMOTEROL FUMARATE 20 MCG/2 ML NEBU INHALATION SCH ×2 (09:20→20:37)
[2021-05-11 09:22] LABS: HCT 34.1 % (39.6-50.0); MCH 34.3 pg (27.0-32.0); MCHC 32.3 g/dL (32.0-37.0); MCV 106.2 fL (80.0-97.0); Mean Platelet Volume 9.2 fL (9.5-12.2); NRBC Per 100 WBC 0 /100 WBCS (0.0-0.0); Platelet Count 335 X 10*3/uL (140-440); RBC 3.21 X 10*6/uL (4.40-5.60); RDW 13.3 % (11.5-14.5); WBC 10.85 X 10*3/uL (4.50-10.00)
[2021-05-11] MEDS: METOPROLOL SUCCINATE (ER) 25 MG TAB.ER.24H PO SCH (09:26)
[2021-05-11] MEDS: MULTIVITAMINS, THERA 1 EACH TAB PO SCH (09:26)
[2021-05-11] MEDS: FAMOTIDINE 20 MG TAB PO SCH ×2 (09:27→21:11)
[2021-05-11] MEDS: HEPARIN SODIUM,PORCINE/PF 5,000 UNIT/0.5 ML SYRINGE SQ SCH ×2 (09:27→21:11)
[2021-05-11] MEDS: SPIRONOLACTONE 25 MG TAB PO SCH (09:27)
[2021-05-11] MEDS: VIT A,C & E-LUTEIN-MINERALS 1 EACH TAB PO SCH ×2 (09:27→21:11)
[2021-05-11] MEDS: DULoxetine HCL 30 MG CAPSULE.DR PO SCH (09:28)
[2021-05-11] MEDS: TORSEMIDE 20 MG TAB PO SCH (09:28)
[2021-05-11 09:43] LABS: African American GFR (CKD) 106.4 (60.0-200.0); Anion Gap 12.3 mmol/L (10.00-18.00); BUN/Creat Ratio 29.38 Ratio (12.00-20.00); Blood Urea Nitrogen 23.5 mg/dL (9.0-27.0); Calcium 8.9 mg/dL (8.7-10.3); Carbon Dioxide 27.7 mmol/L (20.0-27.5); Magnesium 2.3 mg/dL (1.5-2.4); Non-African American GFR(CKD) 91.8 (60.0-200.0)
--- NOTE | 2021-05-11 09:48 | P.PN ---
Subjective Patient is seen in follow-up for hyponatremia. Sodium level 128 today. On torsemide. Status post 1 dose of Samsca this admission. Oral intake fair. No vomiting or diarrhea. Edema improved. Nonoliguric. Vital signs are stable. General: Awake and alert. HEENT: Head exam is unremarkable. LUNGS:Breath sounds decreased. HEART: Rate and Rhythm are regular. ABDOMEN: Soft, no distention. EXTREMITITES: Trace edema. Objective - Vital Signs Vital signs: Vital Signs Temp 97.9 F 05/11/21 07:08 Pulse 92 05/11/21 09:39 Resp 20 05/11/21 07:08 BP 128/71 05/11/21 07:08 Pulse Ox 95 05/11/21 07:08 Intake & Output 05/10/21 05/11/21 05/11/21 18:59 06:59 18:59 Intake Total 900 Output Total 1650 Balance -1650 900 Weight 96.187 kg Intake: Oral 900 Output: Urine 1650 Other: Voiding Method Toilet # Voids 300 - Labs CBC & Chem 7: 05/11/21 03:38 05/11/21 03:38 Labs: Abnormal Lab Results - Last 24 Hours (Table) 05/10/21 05/10/21 05/11/21 Range/Units 11:16 16:48 03:38 WBC (4.50-10.00) X 10*3/uL RBC (4.40-5.60) X 10*6/uL Hgb (13.0-17.0) g/dL Hct (39.6-50.0) % MCV (80.0-97.0) fL MCH (27.0-32.0) pg MPV (9.5-12.2) fL Sodium 128 L (135-145) mmol/L Chloride 88 L (96-109) mmol/L Carbon Dioxide 27.7 H (20.0-27.5) mmol/L BUN/Creatinine Ratio 29.38 H (12.00-20.00) Ratio Glucose 131 H (70-110) mg/dL POC Glucose (mg/dL) 158 H 124 H (75-99) mg/dL 05/11/21 05/11/21 Range/Units 03:38 06:46 WBC 10.85 H (4.50-10.00) X 10*3/uL RBC 3.21 L (4.40-5.60) X 10*6/uL Hgb 11.0 L (13.0-17.0) g/dL Hct 34.1 L (39.6-50.0) % MCV 106.2 H (80.0-97.0) fL MCH 34.3 H (27.0-32.0) pg MPV 9.2 L (9.5-12.2) fL Sodium (135-145) mmol/L Chloride (96-109) mmol/L Carbon Dioxide (20.0-27.5) mmol/L BUN/Creatinine Ratio (12.00-20.00) Ratio Glucose (70-110) mg/dL POC Glucose (mg/dL) 118 H (75-99) mg/dL Assessment and Plan Plan: Assessment: 1. Hypervolemic hyponatremia. Sodium level 128 today. Urine sodium 25 and urine osmolality 235. Was also getting Motrin which can induce SIADH. Status post [facility] 05/09/2021. 2. Lower extremity edema. Improved with diuresis. 3. Acute on chronic diastolic CHF. 4. COPD exacerbation. Plan: 1500 mL fluid restriction. Encouraged oral intake. Taking torsemide 20 mg daily. Continue to monitor. If sodium level not higher tomorrow, [facility] Check TSH.
[2021-05-11] MEDS ORDERED: RX INFO: IV CONTRAST WAS GIVEN 1 EACH MISC MISCELLANE PRN (10:53)
--- NOTE | 2021-05-11 10:54 | P.PN ---
Subjective Progress Note Date: 05/11/21 This is a pleasant 66-year-old male patient with a known history of atrial fibrillation, congestive heart failure, Herring's esophagus, chronic obstructive pulmonary disease in a former smoker of 45 years quit in 2019, COVID-19 infection received monoclonal antibodies, not vaccinated and was hospitalized back in February 2021. He presented here to the emergency room yesterday with complaints of breath, cough congestion greenish yellow sputum. He is admitted for COPD exacerbation. Chest x-ray revealed no acute pulmonary process. Normal heart size. White count 9.6. Hemoglobin 12.9. MCV 104. Sodium 128. Potassium 4.1. BUN 13. Creatinine 0.66. Urinalysis clear. He is seen today in consultation on the regular medical floor. He is currently resting comfortably in bed. Awake and alert in no acute distress. He is maintaining good O2 saturations in the 90s on room air. He's been afebrile. Hemodynamically stable. EKG reveals normal sinus rhythm with occasional PACs. X-ray of the left foot reveals diffuse osteopenia but no acute fracture. He's been initiated on DuoNeb inhalations, Pulmicort and Perforomist inhalations, IV Solu-Medrol. Heparin for DVT prophylaxis. On today's evaluation of 05/09/2021, the patient is feeling well and he seems to be slightly less short of breath compared to yesterday. He still bronchospastic and wheezy. His bringing up some minimal amount of mucus. He remains on a combination of DuoNeb nebulized treatments around the clock, and he is also on IV Solu Medrol 60 mg every 6 hours. At the same time, the patient was found to have hyponatremia. Sodium level was at 126. The patient was given a dose of Lasix today by nephrology and the patient was also given a dose of Semsca. Nephrology is on the case regarding the hyponatremia. Noted the initial sodium level was at 123. White cell count is at 9.6 with a hemoglobin of 12.6. The Doppler of the lower extremity of been negative and the patient has no acute cardio pulmonary abnormalities on the chest x-ray. On 05/10/2021 patient seen in follow-up on medical surgical floor. He is on room air, sitting up in the recliner, does not appear to be in any acute distress, he states he had one episode of hemoptysis and coughed up about 2 tablespoons of blood tinged phlegm. Still bronchospastic on physical exam. Vital signs are stable, room air pulse ox is 99%, his been afebrile, he modynamically has been stable, denies any chest discomfort. He remains on IV steroids with Solu-Medrol 60 mg every 6 hours, he is on Pulmicort, Perforomist, he is on DuoNeb. He continues on his home dose Aldactone, he was started on Demadex, and he was given a dose of told wrapped in by nephrology. Serum sodium is currently improved and is up to 135 on today's labs, BUN is 18.3 and creatinine 0.7 05/11/2021, the patient remains short of breath congested and wheezy. The same time, his still having blood-tinged sputum and he coughed out another 3 blocks of mucus mixed with blood. This is quite concerning for him. His last CAT scan of the chest was done on 08/19/2020 which is approximately 9 months ago and the patient back then showed no evidence of any bronchiectasis. There was some mild the and background COPD with moderate emphysematous changes in the upper lobes and evidence of biapical pleural scarring. He also had a stable aneurysmal dilatation of the aortic root measuring 4.2 cm in size. Based on all this, and based on this ongoing new onset hemoptysis, I'm going to repeat the CAT scan of the chest. Meanwhile, his blood work is showing a white cell count of 10.8 and hemoglobin of 11. There is some limited drop in hemoglobin compared to 12.9 from 2 days ago. Sodium level dropped again to 128. This has been gradually improving. BUN and creatinine are within normal limits. In terms of treatment, the patient is on DuoNeb nebulized treatment [id number], still on IV Solu- Medrol. He has no antibiotic coverage for now. IV fluids are currently at KVO. Objective - Vital Signs Vital signs: Vital Signs Temp 97.9 F 05/11/21 07:08 Pulse 92 05/11/21 09:39 Resp 20 05/11/21 07:08 BP 128/71 05/11/21 07:08 Pulse Ox 95 05/11/21 07:08 Intake & Output 0305/11/21 05/11/21 18:59 06:59 18:59 Intake Total 900 Output Total 1650 300 Balance -1650 900 -300 Weight 96.187 kg Intake: Oral 900 Output: Urine 1650 300 Other: Voiding Method Toilet # Voids 300 - Exam GENERAL EXAM: Alert, very pleasant 66-year-old male, with room air pulse ox of 97% comfortable in no apparent distress. HEAD: Normocephalic/atraumatic. EYES: Normal reaction of pupils, equal size. Conjunctiva pink, sclera white. NOSE: Clear with pink turbinates. THROAT: No erythema or exudates. NECK: No masses, no JVD, no thyroid enlargement, no adenopathy. CHEST: No chest wall deformity. Symmetrical expansion. LUNGS: Equal air entry with end expiratory wheeze, few scattered rhonchi CVS: Irregular rate and rhythm, normal S1 and S2, no gallops, no murmurs, no rubs ABDOMEN: No hepatosplenomegaly, normal bowel sounds, no guarding or rigidity. EXTREMITIES: No clubbing, 1+ lower extremity, no cyanosis, 2+ pulses and upper and lower extremities. MUSCULOSKELETAL: Muscle strength and tone normal. SPINE: No scoliosis or deformity SKIN: No rashes CENTRAL NERVOUS SYSTEM: Alert and oriented -3. No focal deficits, tone is normal in all 4 extremities. PSYCHIATRIC: Alert and oriented -3. Appropriate affect. Intact judgment and insight. - Labs CBC & Chem 7: 05/11/21 03:38 05/11/21 03:38 Labs: Abnormal Lab Results - Last 24 Hours (Table) 05/10/21 05/10/21 05/11/21 Range/Units 11:16 16:48 03:38 WBC (4.50-10.00) X 10*3/uL RBC (4.40-5.60) X 10*6/uL Hgb (13.0-17.0) g/dL Hct (39.6-50.0) % MCV (80.0-97.0) fL MCH (27.0-32.0) pg MPV (9.5-12.2) fL Sodium 128 L (135-145) mmol/L Chloride 88 L (96-109) mmol/L Carbon Dioxide 27.7 H (20.0-27.5) mmol/L BUN/Creatinine Ratio 29.38 H (12.00-20.00) Ratio Glucose 131 H (70-110) mg/dL POC Glucose (mg/dL) 158 H 124 H (75-99) mg/dL 05/11/21 05/11/21 Range/Units 03:38 06:46 WBC 10.85 H (4.50-10.00) X 10*3/uL RBC 3.21 L (4.40-5.60) X 10*6/uL Hgb 11.0 L (13.0-17.0) g/dL Hct 34.1 L (39.6-50.0) % MCV 106.2 H (80.0-97.0) fL MCH 34.3 H (27.0-32.0) pg MPV 9.2 L (9.5-12.2) fL Sodium (135-145) mmol/L Chloride (96-109) mmol/L Carbon Dioxide (20.0-27.5) mmol/L BUN/Creatinine Ratio (12.00-20.00) Ratio Glucose (70-110) mg/dL POC Glucose (mg/dL) 118 H (75-99) mg/dL Assessment and Plan Plan: #1. Acute exacerbation of chronic obstructive pulmonary disease with no evidence of acute pneumonia #2. COPD with upper lobe predominance and biapical scarring. Note that the patient has extensive history of nicotine dependence, patient carries a 54-[id number]-[id number] smoking history and quit in 2019 #3. Hyponatremia, improved, 128 #4. Left foot pain, no evidence of fracture on the x-ray, Dopplers bilateral lower extremities were negative for DVT #5. History of atrial fibrillation, paroxysmal, currently in sinus mechanism #6. History of CHF with systolic dysfunction #7. History of Herring's esophagus #8. Glaucoma #9. Macular degeneration #10. Osteoarthritis Plan: Hemoptysis. We'll proceed with a CAT scan of the chest With contrast Fluid restriction monitor sodium level Continue IV steroids, continue bronchodilators We'll continue to follow his clinical course Not quite ready for discharge
[2021-05-11 11:15] LABS: Glucose,Whole Blood 107 mg/dL (75-99)
[2021-05-11 11:16] LABS: Basophils # (A) 0.01 X 10*3/uL (0.00-0.10); Basophils % (A) 0.1 %; Eosinophils # (A) 0 X 10*3/uL (0.04-0.35); Eosinophils % (A) 0 %; Lymphocytes % (A) 6.5 %; Monocytes # (A) 0.58 X 10*3/uL (0.20-1.00); Monocytes % (A) 5.3 %; Neutrophils # (A) 9.45 X 10*3/uL (1.80-7.70); Neutrophils % (A) 87.1 %
[2021-05-11 11:17] LABS: RBC Morphology NORMAL
--- NOTE | 2021-05-11 16:50 | CT ---
EXAMINATION TYPE: CT chest w con DATE OF EXAM: 05/11/2021 COMPARISON: 08/19/2020 HISTORY: Hemoptysis CT DLP: 379.6 mGycm Automated exposure control for dose reduction was used. CONTRAST: Performed with IV Contrast, patient injected with 100ml mL of Isovue 300. Images obtained from the thoracic inlet to the diaphragm with IV contrast. There is some reticular infiltrate and pleural thickening at the lung apices bilaterally. There is no mediastinal adenopathy. There are no hilar masses. Thoracic aorta is atheromatous. There is no aneur ysm or dissection. There no filling defects in the pulmonary arteries. Heart size is normal. There is no pericardial effusion. There is no pleural effusion or pneumothorax. The thoracic spine is intact sternum is intact. IMPRESSION: There is some pleural thickening and reticular infiltrate at the lung apices consistent with scarring . No change compared to old exam. Mild pulmonary emphysema. No increasing pulmonary density compared to old exam.
[2021-05-11 17:03] LABS: Glucose,Whole Blood 142 mg/dL (75-99)
[2021-05-11] MEDS ORDERED: methylPREDNISolone SOD SUCCI 125 MG/2 ML VIAL IV SCH (18:00)
[2021-05-11] MEDS: ACETAMINOPHEN TAB 500 MG TAB PO PRN (19:54)
[2021-05-11 20:43] LABS: Glucose,Whole Blood 167 mg/dL (75-99)
[2021-05-11] MEDS: ATORVASTATIN 20 MG TAB PO SCH (21:11)
[2021-05-11] MEDS: LATANOPROST 0.005% OPHTH DROPS 2.5 ML BTL LEFT EYE SCH (21:12)
[2021-05-12] MEDS: MORPHINE SULFATE 4 MG/ML SYRINGE IVP PRN ×3 (02:52→23:32)
[2021-05-12] MEDS: methylPREDNISolone SOD SUCCI 125 MG/2 ML VIAL IV SCH ×4 (05:23→23:30)
[2021-05-12] MEDS: ACETAMINOPHEN TAB 500 MG TAB PO PRN (05:25)
[2021-05-12 07:18] LABS: Glucose,Whole Blood 141 mg/dL (75-99)
[2021-05-12] MEDS: IPRATROPIUM-ALBUTEROL 3 ML NEB INHALATION SCH ×4 (08:09→20:17)
[2021-05-12] MEDS: FORMOTEROL FUMARATE 20 MCG/2 ML NEBU INHALATION SCH ×2 (08:10→20:16)
[2021-05-12] MEDS: BUDESONIDE 1 MG/2 ML NEBU INHALATION SCH ×2 (08:10→20:17)
[2021-05-12] MEDS: METOPROLOL SUCCINATE (ER) 25 MG TAB.ER.24H PO SCH (08:29)
[2021-05-12] MEDS: INSULIN ASPART (NovoLOG) 100 UNIT/ML VIAL SQ SCH ×4 (08:29→21:41)
[2021-05-12] MEDS: VIT A,C & E-LUTEIN-MINERALS 1 EACH TAB PO SCH ×2 (08:29→21:41)
[2021-05-12] MEDS: TORSEMIDE 20 MG TAB PO SCH (08:29)
[2021-05-12] MEDS: HEPARIN SODIUM,PORCINE/PF 5,000 UNIT/0.5 ML SYRINGE SQ SCH ×2 (08:29→21:41)
[2021-05-12] MEDS: MULTIVITAMINS, THERA 1 EACH TAB PO SCH (08:29)
[2021-05-12] MEDS: SPIRONOLACTONE 25 MG TAB PO SCH (08:30)
[2021-05-12] MEDS: DULoxetine HCL 30 MG CAPSULE.DR PO SCH (08:30)
[2021-05-12] MEDS: FAMOTIDINE 20 MG TAB PO SCH ×2 (08:30→21:41)
[2021-05-12 08:59] LABS: Basophils # (A) 0 X 10*3/uL (0.00-0.10); Basophils % (A) 0 %; Eosinophils # (A) 0 X 10*3/uL (0.04-0.35); Eosinophils % (A) 0 %; HGB 11.1 g/dL (13.0-17.0); Lymphocytes # (A) 0.71 X 10*3/uL (0.90-5.00); Lymphocytes % (A) 7.7 %; MCH 33.7 pg (27.0-32.0); MCHC 32.6 g/dL (32.0-37.0); MCV 103.3 fL (80.0-97.0); Mean Platelet Volume 9.1 fL (9.5-12.2); Monocytes # (A) 0.43 X 10*3/uL (0.20-1.00); Monocytes % (A) 4.6 %; NRBC Per 100 WBC 0 /100 WBCS (0.0-0.0); Neutrophils # (A) 8.05 X 10*3/uL (1.80-7.70); Neutrophils % (A) 86.7 %; Platelet Count 359 X 10*3/uL (140-440); RBC 3.29 X 10*6/uL (4.40-5.60); RDW 13.3 % (11.5-14.5); WBC 9.28 X 10*3/uL (4.50-10.00)
--- NOTE | 2021-05-12 09:48 | P.PN ---
Subjective Patient is seen in follow-up for hyponatremia. Sodium level 128 yesterday. On torsemide. Status post 1 dose of Samsca this admission. Oral intake good. No vomiting or diarrhea. Edema improved. Nonoliguric. No active complaints. Vital signs are stable. General: Awake and alert. HEENT: Head exam is unremarkable. LUNGS:Breath sounds decreased. HEART: Rate and Rhythm are regular. ABDOMEN: Soft, no distention. EXTREMITITES: Trace edema. Objective - Vital Signs Vital signs: Vital Signs Temp 97.6 F 05/12/21 02:00 Pulse 90 05/12/21 08:37 Resp 20 05/12/21 08:37 BP 156/73 05/12/21 02:00 Pulse Ox 98 05/12/21 08:13 Intake & Output 05/11/21 05/12/21 05/12/21 18:59 06:59 18:59 Intake Total 1500 Output Total 300 450 Balance -300 1050 Intake: Oral 1500 Output: Urine 300 450 Other: Voiding Method Toilet Toilet Urinal # Voids 2 - Labs CBC & Chem 7: 05/12/21 04:54 05/11/21 03:38 Labs: Abnormal Lab Results - Last 24 Hours (Table) 05/11/21 05/11/21 05/11/21 Range/Units 03:38 11:12 17:02 RBC (4.40-5.60) X 10*6/uL Hgb (13.0-17.0) g/dL Hct (39.6-50.0) % MCV (80.0-97.0) fL MCH (27.0-32.0) pg MPV (9.5-12.2) fL Immature Gran # 0.11 H (0.00-0.04) X 10*3/uL Neutrophils # 9.45 H (1.80-7.70) X 10*3/uL Lymphocytes # 0.70 L (0.90-5.00) X 10*3/uL Eosinophils # 0 L (0.04-0.35) X 10*3/uL POC Glucose (mg/dL) 107 H 142 H (75-99) mg/dL 05/11/21 05/12/21 05/12/21 Range/Units 20:41 04:54 07:17 RBC 3.29 L (4.40-5.60) X 10*6/uL Hgb 11.1 L (13.0-17.0) g/dL Hct 34.0 L (39.6-50.0) % MCV 103.3 H (80.0-97.0) fL MCH 33.7 H (27.0-32.0) pg MPV 9.1 L (9.5-12.2) fL Immature Gran # 0.09 H (0.00-0.04) X 10*3/uL Neutrophils # 8.05 H (1.80-7.70) X 10*3/uL Lymphocytes # 0.71 L (0.90-5.00) X 10*3/uL Eosinophils # 0 L (0.04-0.35) X 10*3/uL POC Glucose (mg/dL) 167 H 141 H (75-99) mg/dL Assessment and Plan Plan: Assessment: 1. Hypervolemic hyponatremia. Sodium level 128 yesterday. Urine sodium 25 and urine osmolality 235. Was also getting Motrin which can induce SIADH. Status post [facility] 05/09/2021. TSH normal. 2. Lower extremity edema. Improved with diuresis. 3. Acute on chronic diastolic CHF. 4. COPD exacerbation. Plan: 1500 mL fluid restriction. Encouraged oral intake. On torsemide 20 mg daily. Continue to monitor. If sodium level not higher today, will repeat Samsca.
[2021-05-12 11:41] LABS: African American GFR (CKD) 106.4 (60.0-200.0); Anion Gap 16.4 mmol/L (10.00-18.00); BUN/Creat Ratio 29.38 Ratio (12.00-20.00); Blood Urea Nitrogen 23.5 mg/dL (9.0-27.0); Calcium 8.6 mg/dL (8.7-10.3); Carbon Dioxide 23.6 mmol/L (20.0-27.5); Magnesium 2.2 mg/dL (1.5-2.4); Non-African American GFR(CKD) 91.8 (60.0-200.0); Potassium 4.5 mmol/L (3.5-5.5)
[2021-05-12 11:51] LABS: Glucose,Whole Blood 142 mg/dL (75-99)
[2021-05-12] MEDS: LEVOFLOXACIN 750 MG TAB PO SCH (12:33)
--- NOTE | 2021-05-12 13:33 | P.PN ---
Subjective Progress Note Date: 05/12/21 This is a pleasant 66-year-old male patient with a known history of atrial fibrillation, congestive heart failure, Herring's esophagus, chronic obstructive pulmonary disease in a former smoker of 45 years quit in 2019, COVID-19 infection received monoclonal antibodies, not vaccinated and was hospitalized back in February 2021. He presented here to the emergency room yesterday with complaints of breath, cough congestion greenish yellow sputum. He is admitted for COPD exacerbation. Chest x-ray revealed no acute pulmonary process. Normal heart size. White count 9.6. Hemoglobin 12.9. MCV 104. Sodium 128. Potassium 4.1. BUN 13. Creatinine 0.66. Urinalysis clear. He is seen today in consultation on the regular medical floor. He is currently resting comfortably in bed. Awake and alert in no acute distress. He is maintaining good O2 saturations in the 90s on room air. He's been afebrile. Hemodynamically stable. EKG reveals normal sinus rhythm with occasional PACs. X-ray of the left foot reveals diffuse osteopenia but no acute fracture. He's been initiated on DuoNeb inhalations, Pulmicort and Perforomist inhalations, IV Solu-Medrol. Heparin for DVT prophylaxis. On today's evaluation of 05/09/2021, the patient is feeling well and he seems to be slightly less short of breath compared to yesterday. He still bronchospastic and wheezy. His bringing up some minimal amount of mucus. He remains on a combination of DuoNeb nebulized treatments around the clock, and he is also on IV Solu Medrol 60 mg every 6 hours. At the same time, the patient was found to have hyponatremia. Sodium level was at 126. The patient was given a dose of Lasix today by nephrology and the patient was also given a dose of Semsca. Nephrology is on the case regarding the hyponatremia. Noted the initial sodium level was at 123. White cell count is at 9.6 with a hemoglobin of 12.6. The Doppler of the lower extremity of been negative and the patient has no acute cardio pulmonary abnormalities on the chest x-ray. On 05/10/2021 patient seen in follow-up on medical surgical floor. He is on room air, sitting up in the recliner, does not appear to be in any acute distress, he states he had one episode of hemoptysis and coughed up about 2 tablespoons of blood tinged phlegm. Still bronchospastic on physical exam. Vital signs are stable, room air pulse ox is 99%, his been afebrile, hem odynamically has been stable, denies any chest discomfort. He remains on IV steroids with Solu-Medrol 60 mg every 6 hours, he is on Pulmicort, Perforomist, he is on DuoNeb. He continues on his home dose Aldactone, he was started on Demadex, and he was given a dose of told wrapped in by nephrology. Serum sodium is currently improved and is up to 135 on today's labs, BUN is 18.3 and creatinine 0.7 05/11/2021, the patient remains short of breath congested and wheezy. The same time, his still having blood-tinged sputum and he coughed out another 3 blocks of mucus mixed with blood. This is quite concerning for him. His last CAT scan of the chest was done on 08/19/2020 which is approximately 9 months ago and the patient back then showed no evidence of any bronchiectasis. There was some mild the and background COPD with moderate emphysematous changes in the upper lobes and evidence of biapical pleural scarring. He also had a stable aneurysmal dilatation of the aortic root measuring 4.2 cm in size. Based on all this, and based on this ongoing new onset hemoptysis, I'm going to repeat the CAT scan of the chest. Meanwhile, his blood work is showing a white cell count of 10.8 and hemoglobin of 11. There is some limited drop in hemoglobin compared to 12.9 from 2 days ago. Sodium level dropped again to 128. This has been gradually improving. BUN and creatinine are within normal limits. In terms of treatment, the patient is on DuoNeb nebulized treatment [id number], still on IV Solu- Medrol. He has no antibiotic coverage for now. IV fluids are currently at KVO. The patient is seen today 05/12/2021 in follow-up on the regular medical floor. He is currently sitting up at the bedside. Awake and alert in no acute distress. His mucus today does not reveal any evidence of blood. Sputum culture pending. White count 9.2. Hemoglobin 11.1. Sodium 127. Potassium 4.5. Bicarb 24. BUN 24. Creatinine 0.8. Glucose 135. He is continued on DuoNeb inhalations, Pulmicort and Perforomist inhalations, IV Solu-Medrol. He remains on oral diuretics. Heparin for DVT prophylaxis. Objective - Vital Signs Vital signs: Vital Signs Temp 98.4 F 05/12/21 08:00 Pulse 90 05/12/21 11:37 Resp 18 05/12/21 11:37 BP 138/69 05/12/21 08:00 Pulse Ox 98 05/12/21 08:13 Intake & Output 05/11/21 05/12/21 05/12/21 18:59 06:59 18:59 Intake Total 1500 Output Total 300 450 300 Balance -300 1050 -300 Weight 94.9 kg Intake: Oral 1500 Output: Urine 300 450 300 Other: Voiding Method Toilet Toilet Urinal # Voids 2 - Exam GENERAL EXAM: Alert, very pleasant 66-year-old male, with room air pulse ox of 98% comfortable in no apparent distress. HEAD: Normocephalic/atraumatic. EYES: Normal reaction of pupils, equal size. Conjunctiva pink, sclera white. NOSE: Clear with pink turbinates. THROAT: No erythema or exudates. NECK: No masses, no JVD, no thyroid enlargement, no adenopathy. CHEST: No chest wall deformity. Symmetrical expansion. LUNGS: Equal air entry with end expiratory wheeze, few scattered rhonchi CVS: Irregular rate and rhythm, normal S1 and S2, no gallops, no murmurs, no rubs ABDOMEN: No hepatosplenomegaly, normal bowel sounds, no guarding or rigidity. EXTREMITIES: No clubbing, 1+ lower extremity, no cyanosis, 2+ pulses and upper and lower extremities. MUSCULOSKELETAL: Muscle strength and tone normal. SPINE: No scoliosis or deformity SKIN: No rashes CENTRAL NERVOUS SYSTEM: No focal deficits, tone is normal in all 4 extremities. PSYCHIATRIC: Alert and oriented -3. Appropriate affect. Intact judgment and insight. - Labs CBC & Chem 7: 05/12/21 04:54 05/12/21 04:54 Labs: Abnormal Lab Results - Last 24 Hours (Table) 05/11/21 05/11/21 05/12/21 Range/Units 17:02 20:41 04:54 RBC (4.40-5.60) X 10*6/uL Hgb (13.0-17.0) g/dL Hct (39.6-50.0) % MCV (80.0-97.0) fL MCH (27.0-32.0) pg MPV (9.5-12.2) fL Immature Gran # (0.00-0.04) X 10*3/uL Neutrophils # (1.80-7.70) X 10*3/uL Lymphocytes # (0.90-5.00) X 10*3/uL Eosinophils # (0.04-0.35) X 10*3/uL Sodium 127 L (135-145) mmol/L Chloride 87 L (96-109) mmol/L BUN/Creatinine Ratio 29.38 H (12.00-20.00) Ratio Glucose 135 H (70-110) mg/dL POC Glucose (mg/dL) 142 H 167 H (75-99) mg/dL Calcium 8.6 L (8.7-10.3) mg/dL 05/12/21 05/12/21 05/12/21 Range/Units 04:54 07:17 11:48 RBC 3.29 L (4.40-5.60) X 10*6/uL Hgb 11.1 L (13.0-17.0) g/dL Hct 34.0 L (39.6-50.0) % MCV 103.3 H (80.0-97.0) fL MCH 33.7 H (27.0-32.0) pg MPV 9.1 L (9.5-12.2) fL Immature Gran # 0.09 H (0.00-0.04) X 10*3/uL Neutrophils # 8.05 H (1.80-7.70) X 10*3/uL Lymphocytes # 0.71 L (0.90-5.00) X 10*3/uL Eosinophils # 0 L (0.04-0.35) X 10*3/uL Sodium (135-145) mmol/L Chloride (96-109) mmol/L BUN/Creatinine Ratio (12.00-20.00) Ratio Glucose (70-110) mg/dL POC Glucose (mg/dL) 141 H 142 H (75-99) mg/dL Calcium (8.7-10.3) mg/dL Assessment and Plan Assessment: 1 Acute exacerbation of chronic obstructive pulmonary disease, no evidence of acute pneumonia. Pro calcitonin 0.04 2 Forty five year history of chronic tobacco dependence however quit in 2019 3 Hyponatremia, current sodium 128 4 Left foot pain, x-ray reveals no fractures, Dopplers pending 5 History of atrial fibrillation, currently in normal sinus rhythm 6 History of congestive heart failure 7 History of Herring's esophagus 8 Glaucoma 9 Macular degeneration Plan: The patient was seen and evaluated CAT scan and labs reviewed Sputum culture pending, no hemoptysis Add Levaquin Continue bronchodilators, IV Solu-Medrol Increase his activity as tolerated We will continue to follow I have personally seen and examined the patient, performed the documentation and the assessment and plan as written. Number of minutes spent on the visit: 10. I have personally seen and examined the patient and reviewed the documentation. I performed a joint evaluation with the nurse practitioner in this evaluation was done more than 20 minutes. I fully agree with the documentation above and the plan of care.. The patient is clinically doing well. The patient has no new complaints otherwise for now. No further episodes of hemoptysis. CAT scan of the chest showed no acute abnormalities. We'll continue to follow. Continue bronchodilators. Continue steroids. Optimize COPD. Sodium level remains low at 127. Nephrology is on the case. No evidence of any thoracic malignancy.
[2021-05-12 13:37] VITALS: BMI 29.2
[2021-05-12] MEDS ORDERED: TOLVAPTAN 15 MG 1/2 TABLET PO ONE (14:00)
--- NOTE | 2021-05-12 14:12 | XR ---
Left knee HISTORY: Pain 3 views the left knee There is remodeling in the medial compartment with joint space loss, marginal spurring, subchondral s clerosis, loss of height. Difficult to exclude underlying osteonecrosis. There is been marked progres saniya of disease compared to previous exam one year prior, resulting there is deformity present. Spurr ing also present the patellofemoral joint. No evident joint effusion. IMPRESSION: Osteoarthritis, additional findings above.
[2021-05-12 17:02] LABS: Glucose,Whole Blood 130 mg/dL (75-99)
[2021-05-12 20:32] LABS: Glucose,Whole Blood 134 mg/dL (75-99)
[2021-05-12] MEDS: LATANOPROST 0.005% OPHTH DROPS 2.5 ML BTL LEFT EYE SCH (21:41)
[2021-05-12] MEDS: ATORVASTATIN 20 MG TAB PO SCH (21:41)
--- NOTE | 2021-05-13 00:09 | P.PN ---
Subjective Progress Note Date: 05/10/21 This is a pleasant 66 years old male with past medical history of Atrial Fibrillation, Heart Failure, COPD, Hyperlipidemia, Osteoarthritis chronic systolic chf, bronchitectoasis/bronchitis, Herring's esophagus, hiatal hernia, anemia, rectus sheath hematoma, L eye glaucoma, chronic low back and L knee pain , does not tolerate statins. His jive developer is Dr. Sr for CHF Presents because shortness of breath for 3 days duration. Patient says that is been having dyspnea for the last 3-4 days and was getting worse and helped by his usual nebulizers and inhalers, associated with little occasional off with little phlegm which is crease mesh yellow in color. He has chest pain with coughing appointments/10. Metamucil once parents on both sides felt like sharp like a knife and the case by deep breathing. Also has been complaining from chronic bilateral leg pain and more on his knees. He denies any change in bowel habits, no urinary complaints, no headache, dizziness or numbness and weakness. He has chronic numbness in his both feet and he follow-up with the urologist Dr. Chilango Lara. He quit smoking 3 years ago, occasional alcohol, no illicit drugs. Vitals stable, blood pressure is 97% on room air and patient is afebrile. Labs showing normal WBC 9.6, hemoglobin 12.9, platelet level is normal. INR 0.9, sodium was low at 123, rest of BMP and liver enzymes are unremarkable except for hyponatremia . Troponin is negative. ProBNP is normal 641, urinalysis is negative, urine osmolality is low 153 and 235. EKG showed normal sinus rhythm at [address]-T changes Chest x-ray: No active cardiopulmonary process. Morphine and breathing treatment 05/10/2019 Patient is currently sitting in the chair. Awake alert and oriented x3. On room air. Still having bilateral diffuse rhonchi and coarse breath sounds. Patient is being current on IV Solu-Medrol and duo nebs and Pulmicort. Pulmonary is on board. No complaints of chest pain. Patient does have congestive cough and unable to bring out any sputum. No fever no chills.. Laboratory data showed sodium 126 potassium 3.8 chloride 89 BUN 14 creatinine 0.57 Venous duplex scan of the lower extremities showed negative for DVT. 05/10/21 Patient is sitting in the recliner. Still complains of shortness of breath and exertional dyspnea. Patient had one episode of hemoptysis. Otherwise denies any complaints of chest pain. No worsening shortness of breath. No fever no chills. Patient is being continued IV Solu-Medrol 60 mg every 6 hourly and duo nebs and Pulmicort. Patient is being current Aldactone and was started on Demadex. Laboratory data showed sodium 126 potassium 3.8 and chloride 89 BUN 49 creatinine 0.57. Nephrology and pulmonary is on board. Current medications reviewed. Objective - Vital Signs Vital signs: Vital Signs Temp 98.5 F 05/10/21 14:00 Pulse 108 H 05/10/21 14:00 Resp 18 05/10/21 14:00 BP 111/55 05/10/21 14:00 Pulse Ox 99 05/10/21 14:00 Intake & Output 05/09/21 05/10/21 05/10/21 18:59 06:59 18:59 Intake Total 480 240 Output Total 1000 1000 Balance 480 -760 -1000 Weight 95.339 kg Intake: Oral 480 240 Output: Urine 1000 1000 Other: Voiding Method Urinal # Voids 300 - Exam GENERAL: The patient is alert and oriented x3, not in any acute distress. Obese with BMI 31.4 HEENT: Pupils are round and equally reacting to light. EOMI. No scleral icterus. No conjunctival pallor. Normocephalic, atraumatic. No pharyngeal erythema. No thyromegaly. CARDIOVASCULAR: S1 and S2 present. No murmurs, rubs, or gallops. PULMONARY: Bilateral diffuse wheezing and coarse breath sounds and scattered rhonchi.. ABDOMEN: Soft, nontender, nondistended, normoactive bowel sounds. No palpable organomegaly. MUSCULOSKELETAL: No joint swelling or deformity. -EXTREMITIES: No cyanosis, clubbing, bilateral leg edema 2+ NEUROLOGICAL: Gross neurological examination did not reveal any focal deficits. SKIN: No rashes. No petechiae - Labs CBC & Chem 7: 05/12/21 04:54 05/12/21 04:54 Labs: Abnormal Lab Results - Last 24 Hours (Table) 05/09/21 05/09/21 05/10/21 Range/Units 16:22 20:23 05:10 Chloride 90 L (96-109) mmol/L Carbon Dioxide 30.1 H (20.0-27.5) mmol/L BUN/Creatinine Ratio 26.14 H (12.00-20.00) Ratio Glucose 138 H (70-110) mg/dL POC Glucose (mg/dL) 187 H 144 H (75-99) mg/dL 05/10/21 05/10/21 Range/Units 07:06 11:16 Chloride (96-109) mmol/L Carbon Dioxide (20.0-27.5) mmol/L BUN/Creatinine Ratio (12.00-20.00) Ratio Glucose (70-110) mg/dL POC Glucose (mg/dL) 141 H 158 H (75-99) mg/dL Assessment and Plan Assessment: Acute COPD exacerbation Hyponatremia. Sodium 128 likely due to decreased solute intake and hypervolemia Acute on Chronic systolic heart failure, with bilateral feet and leg swelling. And no pulmonary congestion Paroxysmal atrial fibrillation, not on anticoagulation Peripheral neuropathy Hyperlipidemia History of osteoarthritis History of bronchiectasis and bronchitis History of Herring's esophagus Plan: This is a pleasant 66 years old male who presents with COPD and hyponatremia Patient is being continued on sorbitol 60 mg every 6 hourly.Continue with DuoNeb's and Pulmicort. Fevers started on spironolactone and Demadex was added. Lasix was discontinued.. Continue with fluid restriction 1200 mL per day. No evidence of DVT of the bilateral lower extremities duplex scan. Labs and medication were reviewed.. Monitor lytes and vitals. DVT and GI prophylaxis. DVT prophylaxis: Subcutaneous heparin GI Prophylaxis: Pepcid PT/OT: Pending Prognosis is guarded Time with Patient: Greater than 30
--- NOTE | 2021-05-13 00:12 | P.PN ---
Subjective Progress Note Date: 05/11/21 This is a pleasant 66 years old male with past medical history of Atrial Fibrillation, Heart Failure, COPD, Hyperlipidemia, Osteoarthritis chronic systolic chf, bronchitectoasis/bronchitis, Herring's esophagus, hiatal hernia, anemia, rectus sheath hematoma, L eye glaucoma, chronic low back and L knee pain , does not tolerate statins. His corsetier is Dr. Sr for CHF Presents because shortness of breath for 3 days duration. Patient says that is been having dyspnea for the last 3-4 days and was getting worse and helped by his usual nebulizers and inhalers, associated with little occasional off with little phlegm which is crease mesh yellow in color. He has chest pain with coughing appointments/10. Metamucil once parents on both sides felt like sharp like a knife and the case by deep breathing. Also has been complaining from chronic bilateral leg pain and more on his knees. He denies any change in bowel habits, no urinary complaints, no headache, dizziness or numbness and weakness. He has chronic numbness in his both feet and he follow-up with the urologist Dr. Chilango Lara. He quit smoking 3 years ago, occasional alcohol, no illicit drugs. Vitals stable, blood pressure is 97% on room air and patient is afebrile. Labs showing normal WBC 9.6, hemoglobin 12.9, platelet level is normal. INR 0.9, sodium was low at 123, rest of BMP and liver enzymes are unremarkable except for hyponatremia . Troponin is negative. ProBNP is normal 641, urinalysis is negative, urine osmolality is low 153 and 235. EKG showed normal sinus rhythm at [address]-T changes Chest x-ray: No active cardiopulmonary process. Morphine and breathing treatment 05/10/2019 Patient is currently sitting in the chair. Awake alert and oriented x3. On room air. Still having bilateral diffuse rhonchi and coarse breath sounds. Patient is being current on IV Solu-Medrol and duo nebs and Pulmicort. Pulmonary is on board. No complaints of chest pain. Patient does have congestive cough and unable to bring out any sputum. No fever no chills.. Laboratory data showed sodium 126 potassium 3.8 chloride 89 BUN 14 creatinine 0.57 Venous duplex scan of the lower extremities showed negative for DVT. 05/10/21 Patient is sitting in the recliner. Still complains of shortness of breath and exertional dyspnea. Patient had one episode of hemoptysis. Otherwise denies any complaints of chest pain. No worsening shortness of breath. No fever no chills. Patient is being continued IV Solu-Medrol 60 mg every 6 hourly and duo nebs and Pulmicort. Patient is being current Aldactone and was started on Demadex. Laboratory data showed sodium 126 potassium 3.8 and chloride 89 BUN 49 creatinine 0.57. Nephrology and pulmonary is on board. 05/11/2021 Patient is in the medical floor. Still having shortness of breath and exertional dyspnea and diffuse wheezing on examination. Still having cough with blood-tinged sputum. CT chest was ordered. Otherwise no complaints of chest pain. Patient is being continued IV Solu-Medrol 60 mg every 6 hourly and Pulmicort and Perforomist. Patient is also on Aldactone and torsemide. Laboratory data showed WBC 10.85 hemoglobin 11.0 and platelets 335 sodium 128 potassium 5.0 chloride 88 BUN 23.5 and creatinine 0.8 and calcium 8.9. Nephrology and pulmonary is on board. Current medications reviewed. Objective - Vital Signs Vital signs: Vital Signs Temp 98.7 F 05/11/21 20:00 Pulse 75 05/11/21 20:59 Resp 17 05/11/21 20:00 BP 130/61 05/11/21 20:00 Pulse Ox 98 05/11/21 20:39 Intake & Output 05/11/21 05/11/21 05/12/21 06:59 18:59 06:59 Intake Total 900 Output Total 300 Balance 900 -300 Weight 96.187 kg Intake: Oral 900 Output: Urine 300 Other: Voiding Method Toilet Toilet Urinal - Exam GENERAL: The patient is alert and oriented x3, not in any acute distress. Obese with BMI 31.4 HEENT: Pupils are round and equally reacting to light. EOMI. No scleral icterus. No conjunctival pallor. Normocephalic, atraumatic. No pharyngeal erythema. No thyromegaly. CARDIOVASCULAR: S1 and S2 present. No murmurs, rubs, or gallops. PULMONARY: Bilateral diffuse wheezing and coarse breath sounds and scattered rhonchi.. ABDOMEN: Soft, nontender, nondistended, normoactive bowel sounds. No palpable organomegaly. MUSCULOSKELETAL: No joint swelling or deformity. -EXTREMITIES: No cyanosis, clubbing, bilateral leg edema 2+ NEUROLOGICAL: Gross neurological examination did not reveal any focal deficits. SKIN: No rashes. No petechiae - Labs CBC & Chem 7: 05/12/21 04:54 05/12/21 04:54 Labs: Abnormal Lab Results - Last 24 Hours (Table) 05/11/21 05/11/21 05/11/21 Range/Units 03:38 03:38 06:46 WBC 10.85 H (4.50-10.00) X 10*3/uL RBC 3.21 L (4.40-5.60) X 10*6/uL Hgb 11.0 L (13.0-17.0) g/dL Hct 34.1 L (39.6-50.0) % MCV 106.2 H (80.0-97.0) fL MCH 34.3 H (27.0-32.0) pg MPV 9.2 L (9.5-12.2) fL Immature Gran # 0.11 H (0.00-0.04) X 10*3/uL Neutrophils # 9.45 H (1.80-7.70) X 10*3/uL Lymphocytes # 0.70 L (0.90-5.00) X 10*3/uL Eosinophils # 0 L (0.04-0.35) X 10*3/uL Sodium 128 L (135-145) mmol/L Chloride 88 L (96-109) mmol/L Carbon Dioxide 27.7 H (20.0-27.5) mmol/L BUN/Creatinine Ratio 29.38 H (12.00-20.00) Ratio Glucose 131 H (70-110) mg/dL POC Glucose (mg/dL) 118 H (75-99) mg/dL 05/11/21 05/11/21 05/11/21 Range/Units 11:12 17:02 20:41 WBC (4.50-10.00) X 10*3/uL RBC (4.40-5.60) X 10*6/uL Hgb (13.0-17.0) g/dL Hct (39.6-50.0) % MCV (80.0-97.0) fL MCH (27.0-32.0) pg MPV (9.5-12.2) fL Immature Gran # (0.00-0.04) X 10*3/uL Neutrophils # (1.80-7.70) X 10*3/uL Lymphocytes # (0.90-5.00) X 10*3/uL Eosinophils # (0.04-0.35) X 10*3/uL Sodium (135-145) mmol/L Chloride (96-109) mmol/L Carbon Dioxide (20.0-27.5) mmol/L BUN/Creatinine Ratio (12.00-20.00) Ratio Glucose (70-110) mg/dL POC Glucose (mg/dL) 107 H 142 H 167 H (75-99) mg/dL Assessment and Plan Assessment: Acute COPD exacerbation Hyponatremia. Sodium 128 likely due to decreased solute intake and hypervolemia Acute on Chronic systolic heart failure, with bilateral feet and leg swelling. And no pulmonary congestion Paroxysmal atrial fibrillation, not on anticoagulation Peripheral neuropathy Hyperlipidemia History of osteoarthritis History of bronchiectasis and bronchitis History of Herring's esophagus Plan: This is a pleasant 66 years old male who presents with COPD and hyponatremia Patient is being continued on sorbitol 60 mg every 6 hourly.Continue with DuoNeb's and Pulmicort. Fevers started on spironolactone and Demadex was added. Lasix was discontinued.. Continue with fluid restriction 1200 mL per day. No evidence of DVT of the bilateral lower extremities duplex scan. Labs and medication were reviewed.. Monitor lytes and vitals. DVT and GI prophylaxis. DVT prophylaxis: Subcutaneous heparin GI Prophylaxis: Pepcid PT/OT: Pending Prognosis is guarded Time with Patient: Greater than 30
--- NOTE | 2021-05-13 00:15 | P.PN ---
Subjective Progress Note Date: 05/12/21 This is a pleasant 66 years old male with past medical history of Atrial Fibrillation, Heart Failure, COPD, Hyperlipidemia, Osteoarthritis chronic systolic chf, bronchitectoasis/bronchitis, Herring's esophagus, hiatal hernia, anemia, rectus sheath hematoma, L eye glaucoma, chronic low back and L knee pain , does not tolerate statins. His bead preparer is Dr. Sr for CHF Presents because shortness of breath for 3 days duration. Patient says that is been having dyspnea for the last 3-4 days and was getting worse and helped by his usual nebulizers and inhalers, associated with little occasional off with little phlegm which is crease mesh yellow in color. He has chest pain with coughing appointments/10. Metamucil once parents on both sides felt like sharp like a knife and the case by deep breathing. Also has been complaining from chronic bilateral leg pain and more on his knees. He denies any change in bowel habits, no urinary complaints, no headache, dizziness or numbness and weakness. He has chronic numbness in his both feet and he follow-up with the urologist Dr. Chilango Lara. He quit smoking 3 years ago, occasional alcohol, no illicit drugs. Vitals stable, blood pressure is 97% on room air and patient is afebrile. Labs showing normal WBC 9.6, hemoglobin 12.9, platelet level is normal. INR 0.9, sodium was low at 123, rest of BMP and liver enzymes are unremarkable except for hyponatremia . Troponin is negative. ProBNP is normal 641, urinalysis is negative, urine osmolality is low 153 and 235. EKG showed normal sinus rhythm at [address]-T changes Chest x-ray: No active cardiopulmonary process. Morphine and breathing treatment 05/10/2019 Patient is currently sitting in the chair. Awake alert and oriented x3. On room air. Still having bilateral diffuse rhonchi and coarse breath sounds. Patient is being current on IV Solu-Medrol and duo nebs and Pulmicort. Pulmonary is on board. No complaints of chest pain. Patient does have congestive cough and unable to bring out any sputum. No fever no chills.. Laboratory data showed sodium 126 potassium 3.8 chloride 89 BUN 14 creatinine 0.57 Venous duplex scan of the lower extremities showed negative for DVT. 05/10/21 Patient is sitting in the recliner. Still complains of shortness of breath and exertional dyspnea. Patient had one episode of hemoptysis. Otherwise denies any complaints of chest pain. No worsening shortness of breath. No fever no chills. Patient is being continued IV Solu-Medrol 60 mg every 6 hourly and duo nebs and Pulmicort. Patient is being current Aldactone and was started on Demadex. Laboratory data showed sodium 126 potassium 3.8 and chloride 89 BUN 49 creatinine 0.57. Nephrology and pulmonary is on board. 05/11/2021 Patient is in the medical floor. Still having shortness of breath and exertional dyspnea and diffuse wheezing on examination. Still having cough with blood-tinged sputum. CT chest was ordered. Otherwise no complaints of chest pain. Patient is being continued IV Solu-Medrol 60 mg every 6 hourly and Pulmicort and Perforomist. Patient is also on Aldactone and torsemide. Laboratory data showed WBC 10.85 hemoglobin 11.0 and platelets 335 sodium 128 potassium 5.0 chloride 88 BUN 23.5 and creatinine 0.8 and calcium 8.9. Nephrology and pulmonary is on board. 05/12/2021 Patient is currently sitting on the side of the bed. Awake alert and oriented x3. Breathing status is better today compared to yesterday. No complaints of chest pain. Patient is being continued on IV Solu-Medrol 60 g every 6 hourly, Pulmicort and Perforomist and duo nebs. Also diuretics. CT of the chest done yesterday showed there is some pleural thickening and reticular infiltrate at the lung apices consistent with scarring. No change compared to old exam. Mild pulmonary emphysema. No increased pulmonary density compatible exam. Patient was started on antibiotics of Levaquin. Otherwise patient is also complaining of left knee swelling and pain. Laboratory showed WBC 9.28 hemoglobin 11.1 and platelets 359 sodium 137 potassium 4.5 chloride 87 BUN 23.5 and creatinine 0.8 Current medications reviewed. Objective - Vital Signs Vital signs: Vital Signs Temp 98.4 F 05/12/21 08:00 Pulse 90 05/12/21 11:37 Resp 18 05/12/21 11:37 BP 138/69 05/12/21 08:00 Pulse Ox 98 05/12/21 08:13 Intake & Output 05/11/21 05/12/21 05/12/21 18:59 06:59 18:59 Intake Total 1500 Output Total 300 450 300 Balance -300 1050 -300 Weight 94.9 kg Intake: Oral 1500 Output: Urine 300 450 300 Other: Voiding Method Toilet Toilet Urinal # Voids 2 - Exam GENERAL: The patient is alert and oriented x3, not in any acute distress. Obese with BMI 31.4 HEENT: Pupils are round and equally reacting to light. EOMI. No scleral icterus. No conjunctival pallor. Normocephalic, atraumatic. No pharyngeal erythema. No thyromegaly. CARDIOVASCULAR: S1 and S2 present. No murmurs, rubs, or gallops. PULMONARY: Bilateral diffuse wheezing and coarse breath sounds and scattered rhonchi.. ABDOMEN: Soft, nontender, nondistended, normoactive bowel sounds. No palpable organomegaly. MUSCULOSKELETAL: No joint swelling or deformity. -EXTREMITIES: No cyanosis, clubbing, bilateral leg edema 2+. Left knee joint effusion NEUROLOGICAL: Gross neurological examination did not reveal any focal deficits. SKIN: No rashes. No petechiae - Labs CBC & Chem 7: 05/12/21 04:54 05/12/21 04:54 Labs: Abnormal Lab Results - Last 24 Hours (Table) 05/11/21 05/11/21 05/12/21 Range/Units 17:02 20:41 04:54 RBC (4.40-5.60) X 10*6/uL Hgb (13.0-17.0) g/dL Hct (39.6-50.0) % MCV (80.0-97.0) fL MCH (27.0-32.0) pg MPV (9.5-12.2) fL Immature Gran # (0.00-0.04) X 10*3/uL Neutrophils # (1.80-7.70) X 10*3/uL Lymphocytes # (0.90-5.00) X 10*3/uL Eosinophils # (0.04-0.35) X 10*3/uL Sodium 127 L (135-145) mmol/L Chloride 87 L (96-109) mmol/L BUN/Creatinine Ratio 29.38 H (12.00-20.00) Ratio Glucose 135 H (70-110) mg/dL POC Glucose (mg/dL) 142 H 167 H (75-99) mg/dL Calcium 8.6 L (8.7-10.3) mg/dL 05/12/21 05/12/21 05/12/21 Range/Units 04:54 07:17 11:48 RBC 3.29 L (4.40-5.60) X 10*6/uL Hgb 11.1 L (13.0-17.0) g/dL Hct 34.0 L (39.6-50.0) % MCV 103.3 H (80.0-97.0) fL MCH 33.7 H (27.0-32.0) pg MPV 9.1 L (9.5-12.2) fL Immature Gran # 0.09 H (0.00-0.04) X 10*3/uL Neutrophils # 8.05 H (1.80-7.70) X 10*3/uL Lymphocytes # 0.71 L (0.90-5.00) X 10*3/uL Eosinophils # 0 L (0.04-0.35) X 10*3/uL Sodium (135-145) mmol/L Chloride (96-109) mmol/L BUN/Creatinine Ratio (12.00-20.00) Ratio Glucose (70-110) mg/dL POC Glucose (mg/dL) 141 H 142 H (75-99) mg/dL Calcium (8.7-10.3) mg/dL Assessment and Plan Assessment: Acute COPD exacerbation Hyponatremia. Sodium 128 likely due to decreased solute intake and hypervolemia Left knee joint effusion likely due to osteoarthritis. Acute on Chronic systolic heart failure, with bilateral feet and leg swelling. no pulmonary congestion Paroxysmal atrial fibrillation, not on anticoagulation Peripheral neuropathy Hyperlipidemia History of osteoarthritis History of bronchiectasis and bronchitis History of Herring's esophagus Plan: This is a pleasant 66 years old male who presents with COPD and hyponatremia Patient is being continued on sorbitol 60 mg every 6 hourly.Continue with DuoNeb's and Pulmicort. Fevers started on spironolactone and Demadex was added. Lasix was discontinued.. Continue with fluid restriction 1200 mL per day. No evidence of DVT of the bilateral lower extremities duplex scan. Labs and medication were reviewed.. Monitor lytes and vitals. DVT and GI prophylaxis. Orthopedic surgery was consulted for possible left knee aspiration. DVT prophylaxis: Subcutaneous heparin GI Prophylaxis: Pepcid PT/OT: Pending Prognosis is guarded Time with Patient: Greater than 30
[2021-05-13] MEDS: methylPREDNISolone SOD SUCCI 125 MG/2 ML VIAL IV SCH ×3 (05:04→18:03)
[2021-05-13] MEDS: ACETAMINOPHEN TAB 500 MG TAB PO PRN ×2 (05:04→12:43)
[2021-05-13 07:28] LABS: Glucose,Whole Blood 128 mg/dL (75-99)
[2021-05-13] MEDS: INSULIN ASPART (NovoLOG) 100 UNIT/ML VIAL SQ SCH ×4 (08:32→22:05)
[2021-05-13] MEDS: BUDESONIDE 1 MG/2 ML NEBU INHALATION SCH ×2 (08:55→20:29)
[2021-05-13] MEDS: FORMOTEROL FUMARATE 20 MCG/2 ML NEBU INHALATION SCH ×2 (08:55→20:30)
[2021-05-13] MEDS: IPRATROPIUM-ALBUTEROL 3 ML NEB INHALATION SCH ×4 (08:55→20:30)
[2021-05-13] MEDS: HEPARIN SODIUM,PORCINE/PF 5,000 UNIT/0.5 ML SYRINGE SQ SCH ×2 (09:02→22:05)
[2021-05-13] MEDS: DULoxetine HCL 30 MG CAPSULE.DR PO SCH (09:03)
[2021-05-13] MEDS: VIT A,C & E-LUTEIN-MINERALS 1 EACH TAB PO SCH ×2 (09:03→22:06)
[2021-05-13] MEDS: LEVOFLOXACIN 750 MG TAB PO SCH (09:03)
[2021-05-13] MEDS: FAMOTIDINE 20 MG TAB PO SCH ×2 (09:03→22:06)
[2021-05-13] MEDS: METOPROLOL SUCCINATE (ER) 25 MG TAB.ER.24H PO SCH (09:03)
[2021-05-13] MEDS: MULTIVITAMINS, THERA 1 EACH TAB PO SCH (09:03)
[2021-05-13] MEDS: SPIRONOLACTONE 25 MG TAB PO SCH (09:03)
[2021-05-13] MEDS: TORSEMIDE 20 MG TAB PO SCH (09:03)
--- NOTE | 2021-05-13 09:08 | P.CNOR ---
History of Present Illness - [facility] Consult date: 05/13/21 Consult reason: joint pain (Left knee pain.) History of present illness: This is a pleasant 66 years old male with past medical history of Atrial Fibrillation, Heart Failure, COPD, Hyperlipidemia, Osteoarthritis chronic systolic chf, bronchitectoasis/bronchitis, Herring's esophagus, hiatal hernia, anemia, rectus sheath hematoma, L eye glaucoma, chronic low back and Left knee pain. The patient is known to our office with end-stage degenerative arthritis to his left knee. He had previously been scheduled for knee replacement within the past several months. He has not been cleared medically secondary to his multiple medical issues. The patient is admitted with exacerbation of his COPD. We're consulted for orthopedic evaluation of his left knee. The patient is requesting total left knee arthroplasty while he is in the hospital. Past Medical History Past Medical History: Atrial Fibrillation, Heart Failure, COPD, Eye Disorder, Hyperlipidemia, Osteoarthritis (OA), Pneumonia Additional Past Medical History / Comment(s): Paroxysmal Afib, chronic systolic chf, bronchitectoasis/bronchitis, Herring's esophagus, hiatal hernia, anemia, rectus sheath hematoma, L eye glaucoma, chronic low back and L knee pain, does not tolerate statins. History of Any Multi-Drug Resistant Organisms: None Reported Past Surgical History: Orthopedic Surgery Additional Past Surgical History / Comment(s): LT SHOULDER sx in 2009 with hardware., bronchoscopy Past Anesthesia/Blood Transfusion Reactions: No Reported Reaction Past Psychological History: No Psychological Hx Reported Additional Psychological History / Comment(s): Pt resides with his daughter and son in law. He uses a walker to ambulate. He does not drive, he uses the bus to go places. Smoking Status: Former smoker Past Alcohol Use History: Occasional Additional Past Alcohol Use History / Comment(s): Pt started smoking i 1975 and quit in 2018 Past Drug Use History: None Reported - Past Family History Daughter(s) Family Medical History: No Reported History Father Family Medical History: No Reported History Additional Family Medical History / Comment(s): Father was healthy Mother Family Medical History: No Reported History Additional Family Medical History / Comment(s): Mother was healthy. Medications and Allergies Home Medications Medication Instructions Recorded Confirmed Type Latanoprost [Xalatan 0.005%] 1 drop LEFT EYE HS 10/31/17 05/07/21 History Vit C/E/Zn/Coppr/Lutein/Zeaxan 1 tab PO BID 08/22/19 05/07/21 History [Preservision Areds 2 Softgel] Furosemide [Lasix] 40 mg PO DAILY 30 Days #30 tab 09/12/19 05/07/21 Rx Spironolactone [Aldactone] 25 mg PO DAILY 30 Days #30 tab 09/12/19 05/07/21 Rx Albuterol Nebulized [Ventolin 2.5 mg INHALATION RT-QID PRN 08/13/20 05/07/21 History Nebulized] Acetaminophen [Tylenol] 500 mg PO QID PRN 02/09/21 05/07/21 History Metoprolol Succinate (ER) [Toprol 25 mg PO DAILY 02/09/21 05/07/21 History XL] Multivit-Min/Folic/Vit K/Lycop 1 tab PO DAILY 02/09/21 05/07/21 History [Men's Multivitamin Tablet] Albuterol Sulfate [Proventil Hfa] 2 puff INHALATION RT-QID PRN 03/06/21 05/07/21 History Budesonide/Formoterol Fumarate 2 puff INHALATION RT-BID 03/06/21 05/07/21 History [Symbicort 80-4.5 Mcg Inhaler] Ibuprofen [Motrin] 800 mg PO TID PRN 03/06/21 05/07/21 History Rosuvastatin Calcium [Crestor] 10 mg PO HS 03/06/21 05/07/21 History DULoxetine HCL [Cymbalta] 30 mg PO DAILY 05/07/21 05/07/21 History Allergies Allergy/AdvReac Type Severity Reaction Status Date / Time aspirin Allergy Rash/Hives Verified 05/07/21 19:07 Physical Examination This is a pleasant 66-year-old male in no acute distress. He is alert and oriented 3. Exam of the lower extremities reveals +1 effusion to the left knee. He is lacking approximately 15 of full extension of the knee. He has flexion to 95. No erythema or ecchymosis. Minimal pain with palpation to the medial and lateral joint line. No calf pain with palpation. Neurovascular status to the lower extremity is intact. Results X-rays of the left knee reveal [id number] arthritis, end-stage degenerative arthritis to the left knee.There is erosion of the medial tibial plateau secondary to degenerative changes. No acute fracture identified. - Labs Labs: Abnormal Lab Results - Last 24 Hours (Table) 05/12/21 05/12/21 05/12/21 Range/Units 04:54 11:48 17:00 Sodium 127 L (135-145) mmol/L Chloride 87 L (96-109) mmol/L BUN/Creatinine Ratio 29.38 H (12.00-20.00) Ratio Glucose 135 H (70-110) mg/dL POC Glucose (mg/dL) 142 H 130 H (75-99) mg/dL Calcium 8.6 L (8.7-10.3) mg/dL 05/12/21 05/13/21 Range/Units 20:30 07:26 Sodium (135-145) mmol/L Chloride (96-109) mmol/L BUN/Creatinine Ratio (12.00-20.00) Ratio Glucose (70-110) mg/dL POC Glucose (mg/dL) 134 H 128 H (75-99) mg/dL Calcium (8.7-10.3) mg/dL Microbiology - Last 24 Hours (Table) 05/12/21 11:38 Gram Stain - Preliminary Sputum Sputum Culture - Preliminary H & H 05/07/21 05/08/21 05/11/21 Range/Units 19:11 06:27 03:38 Hgb 12.2 L 12.9 L 11.0 L (13.0-17.5) gm/dL Hct 37.5 L 39.1 34.1 L (39.0-53.0) % 05/12/21 Range/Units 04:54 Hgb 11.1 L (13.0-17.5) gm/dL Hct 34.0 L (39.0-53.0) % Coagulation 05/07/21 Range/Units 19:11 INR 0.9 (<1.2) Result Diagrams: 05/12/21 04:54 05/12/21 04:54 Assessment and Plan (1) Degenerative arthritis of left knee Current Visit: Yes Status: Acute Code(s): M17.12 - UNILATERAL PRIMARY OSTEOARTHRITIS, LEFT KNEE SNOMED Code(s): 976405020161023 (2) Acute exacerbation of chronic obstructive pulmonary disease Current Visit: Yes Status: Acute Code(s): J44.1 - CHRONIC OBSTRUCTIVE PULMONARY DISEASE W (ACUTE) EXACERBATION SNOMED Code(s): 144336461 (3) Congestive heart failure Current Visit: Yes Status: Acute Code(s): I50.9 - HEART FAILURE, UNSPECIFIED SNOMED Code(s): 06344587 (4) Shortness of breath Current Visit: No Status: Acute Code(s): R06.02 - SHORTNESS OF BREATH SNOMED Code(s): 315030794 Plan: The clinical and x-ray findings are discussed the patient. We had a long discussion regarding elective knee surgery with his multiple medical issues. He is not a surgical candidate at this time. I do not believe that a cortisone injection in the knee would be of any benefit to him. I recommended evaluation by pain management if okay with internal medicine. He may follow-up in our office as needed after discharge from the hospital.
[2021-05-13] MEDS: MORPHINE SULFATE 4 MG/ML SYRINGE IVP PRN ×2 (09:18→13:37)
[2021-05-13 09:22] LABS: African American GFR (CKD) 101.9 (60.0-200.0); Anion Gap 13.1 mmol/L (10.00-18.00); BUN/Creat Ratio 29.39 Ratio (12.00-20.00); Blood Urea Nitrogen 26.1 mg/dL (9.0-27.0); Calcium 9.2 mg/dL (8.7-10.3); Carbon Dioxide 29.9 mmol/L (20.0-27.5); Magnesium 2.5 mg/dL (1.5-2.4); Non-African American GFR(CKD) 87.9 (60.0-200.0); Potassium 4.6 mmol/L (3.5-5.5)
--- NOTE | 2021-05-13 10:06 | P.PN ---
Subjective Patient is seen in follow-up for hyponatremia. Sodium level 129. On torsemide. Has received Samsca this admission. Oral intake good. No vomiting or diarrhea. Edema improved. Nonoliguric. Vital signs are stable. General: Awake and alert. HEENT: Head exam is unremarkable. LUNGS:Breath sounds decreased. HEART: Rate and Rhythm are regular. ABDOMEN: Soft, no distention. EXTREMITITES: Trace edema. Objective - Vital Signs Vital signs: Vital Signs Temp 97.9 F 05/13/21 08:00 Pulse 88 05/13/21 09:18 Resp 18 05/13/21 09:18 BP 128/66 05/13/21 08:00 Pulse Ox 95 05/13/21 08:56 Intake & Output 05/12/21 05/13/21 05/13/21 18:59 06:59 18:59 Intake Total 1200 Output Total 300 1675 Balance -300 -475 Weight 94.9 kg Intake: Oral 1200 Output: Urine 300 1675 Other: Voiding Method Toilet Urinal # Voids 2 - Labs CBC & Chem 7: 05/12/21 04:54 05/13/21 06:16 Labs: Abnormal Lab Results - Last 24 Hours (Table) 05/12/21 05/12/21 05/12/21 Range/Units 04:54 11:48 17:00 Sodium 127 L (135-145) mmol/L Chloride 87 L (96-109) mmol/L Carbon Dioxide (20.0-27.5) mmol/L BUN/Creatinine Ratio 29.38 H (12.00-20.00) Ratio Glucose 135 H (70-110) mg/dL POC Glucose (mg/dL) 142 H 130 H (75-99) mg/dL Calcium 8.6 L (8.7-10.3) mg/dL Magnesium (1.5-2.4) mg/dL 05/12/21 05/13/21 05/13/21 Range/Units 20:30 06:16 07:26 Sodium 129 L (135-145) mmol/L Chloride 86 L (96-109) mmol/L Carbon Dioxide 29.9 H (20.0-27.5) mmol/L BUN/Creatinine Ratio 29.39 H (12.00-20.00) Ratio Glucose 119 H (70-110) mg/dL POC Glucose (mg/dL) 134 H 128 H (75-99) mg/dL Calcium (8.7-10.3) mg/dL Magnesium 2.5 H (1.5-2.4) mg/dL Microbiology - Last 24 Hours (Table) 05/12/21 11:38 Gram Stain - Preliminary Sputum Sputum Culture - Preliminary Assessment and Plan Plan: Assessment: 1. Hypervolemic hyponatremia. Sodium level 129 today. Urine sodium 25 and urine osmolality 235. Was also getting Motrin which can induce SIADH. Status post Samsca this admission. TSH normal. 2. Lower extremity edema. Improved with diuresis. 3. Acute on chronic diastolic CHF. 4. COPD exacerbation. Plan: 1500 mL fluid restriction. Encouraged oral intake. On torsemide 20 mg daily. Continue to monitor. Repeat Samsca today. Check PTH-related peptide as well.
[2021-05-13] MEDS ORDERED: TOLVAPTAN 15 MG 1/2 TABLET PO ONE (10:30)
[2021-05-13 12:11] LABS: Glucose,Whole Blood 112 mg/dL (75-99)
--- NOTE | 2021-05-13 13:55 | P.PAINCN ---
History of Present Illness - Reason for Consult Consult date: 05/13/21 - History of Present Illness This is 66 years old male is admitted to [facility] secondary to COPD exacerbation, and patient having chronic pain syndrome secondary to left knee pain secondary to osteoarthritis of the left knee, show was scheduled to have left total knee replacement as an outpatient but he was admitted to [facility] because of the COPD exacerbation, orthopedic surgery was consulted, but currently patient is not a surgical candidate because of his medical condition, pain management consulted to manage his pain, and she reported that he had generalized pain but most of his pain in his left knee and he had severe pain on the right knee also, the pain is constant and increased with any activity interfere with the quality of life and interfering with activity of daily livings Past Medical History Past Medical History: Atrial Fibrillation, Heart Failure, COPD, Eye Disorder, Hyperlipidemia, Osteoarthritis (OA), Pneumonia Additional Past Medical History / Comment(s): Paroxysmal Afib, chronic systolic chf, bronchitectoasis/bronchitis, Herring's esophagus, hiatal hernia, anemia, rectus sheath hematoma, L eye glaucoma, chronic low back and L knee pain, does not tolerate statins. History of Any Multi-Drug Resistant Organisms: None Reported Past Surgical History: Orthopedic Surgery Additional Past Surgical History / Comment(s): LT SHOULDER sx in 2009 with hardware., bronchoscopy Past Anesthesia/Blood Transfusion Reactions: No Reported Reaction Past Psychological History: No Psychological Hx Reported Additional Psychological History / Comment(s): Pt resides with his daughter and son in law. He uses a walker to ambulate. He does not drive, he uses the bus to go places. Smoking Status: Former smoker Past Alcohol Use History: Occasional Additional Past Alcohol Use History / Comment(s): Pt started smoking i 1975 and quit in 2018 Past Drug Use History: None Reported - Past Family History Daughter(s) Family Medical History: No Reported History Father Family Medical History: No Reported History Additional Family Medical History / Comment(s): Father was healthy Mother Family Medical History: No Reported History Additional Family Medical History / Comment(s): Mother was healthy. Medications and Allergies Home Medications Medication Instructions Recorded Confirmed Type Latanoprost [Xalatan 0.005%] 1 drop LEFT EYE HS 10/31/17 05/07/21 History Vit C/E/Zn/Coppr/Lutein/Zeaxan 1 tab PO BID 08/22/19 05/07/21 History [Preservision Areds 2 Softgel] Furosemide [Lasix] 40 mg PO DAILY 30 Days #30 tab 09/12/19 05/07/21 Rx Spironolactone [Aldactone] 25 mg PO DAILY 30 Days #30 tab 09/12/19 05/07/21 Rx Albuterol Nebulized [Ventolin 2.5 mg INHALATION RT-QID PRN 08/13/20 05/07/21 History Nebulized] Acetaminophen [Tylenol] 500 mg PO QID PRN 02/09/21 05/07/21 History Metoprolol Succinate (ER) [Toprol 25 mg PO DAILY 02/09/21 05/07/21 History XL] Multivit-Min/Folic/Vit K/Lycop 1 tab PO DAILY 02/09/21 05/07/21 History [Men's Multivitamin Tablet] Albuterol Sulfate [Proventil Hfa] 2 puff INHALATION RT-QID PRN 03/06/21 05/07/21 History Budesonide/Formoterol Fumarate 2 puff INHALATION RT-BID 03/06/21 05/07/21 History [Symbicort 80-4.5 Mcg Inhaler] Ibuprofen [Motrin] 800 mg PO TID PRN 03/06/21 05/07/21 History Rosuvastatin Calcium [Crestor] 10 mg PO HS 03/06/21 05/07/21 History DULoxetine HCL [Cymbalta] 30 mg PO DAILY 05/07/21 05/07/21 History Allergies Allergy/AdvReac Type Severity Reaction Status Date / Time aspirin Allergy Rash/Hives Verified 05/07/21 19:07 Physical Exam Vitals: Vital Signs Temp Pulse Pulse Resp BP Pulse Ox 05/13/21 12:12 84 18 05/13/21 12:03 88 18 05/13/21 09:18 88 18 05/13/21 09:10 90 18 05/13/21 08:56 85 18 95 05/13/21 08:00 97.9 F 95 18 128/66 98 05/13/21 02:00 98.4 F 80 16 130/79 95 05/12/21 20:37 104 H 05/12/21 20:22 104 H 05/12/21 20:21 100 05/12/21 20:18 100 03/17/22 18:00 98.0 F 105 H 18 128/70 96 05/12/21 16:30 84 05/12/21 16:17 83 05/12/21 14:00 97.5 F L 90 18 149/76 95 Intake and Output 05/12/21 05/13/21 05/13/21 22:59 06:59 14:59 Intake Total 1200 Output Total 1400 275 Balance -1400 925 Intake: Oral 1200 Output: Urine 1400 275 Other: Voiding Method Toilet Toilet Urinal Urinal # Voids 2 Physical Examinations : -Constitutiona : Cooperative , not in acute distress . -HEENT : nech : supple , no Lymphadenopathy , normal thyroid size . : eyes : no ptosis , no icterus, no photophobia . - neurologic : Cranial nerve II to XII intact , no focal neurological deffecit . -psychatric : alert , oriented X 3 , appropriate affect , intact judgment and insight . -Lymphatic : no Lymphadenopathy . - musculoskeltal : Cervical Spine motor stregnth in the deltoid and biceps, normal right side , normal Left side motor stregnth biceps and the wrist extensors normal right side ,normal left side . motor stregnth in the triceps muscle . normal Right side , normal Left side Lumber spine moter stegnth lower extremities ,thigh and legs 5/5 Right side , 5/5 Left side knee= flexion and extension of the both knee associated with severe pain, minimal effusion, no erythema Results CBC & Chem 7: 05/12/21 04:54 05/13/21 06:16 Labs: Abnormal Lab Results - Last 24 Hours (Table) 05/12/21 05/12/21 05/13/21 Range/Units 17:00 20:30 06:16 Sodium 129 L (135-145) mmol/L Chloride 86 L (96-109) mmol/L Carbon Dioxide 29.9 H (20.0-27.5) mmol/L BUN/Creatinine Ratio 29.39 H (12.00-20.00) Ratio Glucose 119 H (70-110) mg/dL POC Glucose (mg/dL) 130 H 134 H (75-99) mg/dL Magnesium 2.5 H (1.5-2.4) mg/dL 03/18/22 03/18/22 Range/Units 07:26 12:10 Sodium (135-145) mmol/L Chloride (96-109) mmol/L Carbon Dioxide (20.0-27.5) mmol/L BUN/Creatinine Ratio (12.00-20.00) Ratio Glucose (70-110) mg/dL POC Glucose (mg/dL) 128 H 112 H (75-99) mg/dL Magnesium (1.5-2.4) mg/dL Microbiology - Last 24 Hours (Table) 05/12/21 11:38 Gram Stain - Preliminary Sputum Sputum Culture - Preliminary Comments: Assessment and plan=1-osteoarthritis of knee joint bilaterally, more prominent on the left side Patient is not a surgical candidate at this point, recommend medication management because patient currently had COPD exacerbation Patient to be evaluated by orthopedic surgery as an outpatient for possible total knee replacement , after his medical condition improved Plan start patient on Percocet 5/325 every 6 hours when necessary PQRS Measure Charge Sheet - Pain Location Left Leg Non-Pharmacological Interventions: Darkened Room, Distraction Pharmacological Interventions: PRN Medication None Pharmacological Interventions: PRN Medication Bilateral Thigh Non-Pharmacological Interventions: Darkened Room, Relaxation Technique Pharmacological Interventions: Discuss Pain Med Options PQRS Narrative: Smoking Status Former smoker Do You Want the Pneumonia Vaccine Up to Date Vaccine AT THIS TIME? Blood Pressure [Left Arm] 128/66 Blood Pressure 111/69 Pain Intensity [Bilateral 7 Thigh] Pain Intensity [None] 0 Pain Intensity [Left Leg] 0 Pain Intensity 9 Pain Scale Used Numeric (1 - 10) Scale Used Numeric (1 - 10) Home Medications: Ambulatory Orders Latanoprost [Xalatan 0.005%] 1 drop LEFT EYE HS 10/31/17 Vit C/E/Zn/Coppr/Lutein/Zeaxan [Preservision Areds 2 Softgel] 1 tab PO BID 08/22/19 Furosemide [Lasix] 40 mg PO DAILY 30 Days #30 tab 09/12/19 Spironolactone [Aldactone] 25 mg PO DAILY 30 Days #30 tab 09/12/19 Albuterol Nebulized [Ventolin Nebulized] 2.5 mg INHALATION RT-QID PRN 08/13/20 Acetaminophen [Tylenol] 500 mg PO QID PRN 02/09/21 Metoprolol Succinate (ER) [Toprol XL] 25 mg PO DAILY 02/09/21 Multivit-Min/Folic/Vit K/Lycop [Men's Multivitamin Tablet] 1 tab PO DAILY 02/09/21 Albuterol Sulfate [Proventil Hfa] 2 puff INHALATION RT-QID PRN 03/06/21 Budesonide/Formoterol Fumarate [Symbicort 80-4.5 Mcg Inhaler] 2 puff INHALATION RT-BID 03/06/21 Ibuprofen [Motrin] 800 mg PO TID PRN 03/06/21 Rosuvastatin Calcium [Crestor] 10 mg PO HS 03/06/21 DULoxetine HCL [Cymbalta] 30 mg PO DAILY 05/07/21
--- NOTE | 2021-05-13 14:24 | P.PN ---
Subjective Progress Note Date: 05/13/21 This is a pleasant 66-year-old male patient with a known history of atrial fibrillation, congestive heart failure, Herring's esophagus, chronic obstructive pulmonary disease in a former smoker of 45 years quit in 2019, COVID-19 infection received monoclonal antibodies, not vaccinated and was hospitalized back in February 2021. He presented here to the emergency room yesterday with complaints of breath, cough congestion greenish yellow sputum. He is admitted for COPD exacerbation. Chest x-ray revealed no acute pulmonary process. Normal heart size. White count 9.6. Hemoglobin 12.9. MCV 104. Sodium 128. Potassium 4.1. BUN 13. Creatinine 0.66. Urinalysis clear. He is seen today in consultation on the regular medical floor. He is currently resting comfortably in bed. Awake and alert in no acute distress. He is maintaining good O2 saturations in the 90s on room air. He's been afebrile. Hemodynamically stable. EKG reveals normal sinus rhythm with occasional PACs. X-ray of the left foot reveals diffuse osteopenia but no acute fracture. He's been initiated on DuoNeb inhalations, Pulmicort and Perforomist inhalations, IV Solu-Medrol. Heparin for DVT prophylaxis. On today's evaluation of 05/09/2021, the patient is feeling well and he seems to be slightly less short of breath compared to yesterday. He still bronchospastic and wheezy. His bringing up some minimal amount of mucus. He remains on a combination of DuoNeb nebulized treatments around the clock, and he is also on IV Solu Medrol 60 mg every 6 hours. At the same time, the patient was found to have hyponatremia. Sodium level was at 126. The patient was given a dose of Lasix today by nephrology and the patient was also given a dose of Semsca. Nephrology is on the case regarding the hyponatremia. Noted the initial sodium level was at 123. White cell count is at 9.6 with a hemoglobin of 12.6. The Doppler of the lower extremity of been negative and the patient has no acute cardio pulmonary abnormalities on the chest x-ray. On 05/10/2021 patient seen in follow-up on medical surgical floor. He is on room air, sitting up in the recliner, does not appear to be in any acute distress, he states he had one episode of hemoptysis and coughed up about 2 tablespoons of blood tinged phlegm. Still bronchospastic on physical exam. Vital signs are stable, room air pulse ox is 99%, his been afebrile, hem odynamically has been stable, denies any chest discomfort. He remains on IV steroids with Solu-Medrol 60 mg every 6 hours, he is on Pulmicort, Perforomist, he is on DuoNeb. He continues on his home dose Aldactone, he was started on Demadex, and he was given a dose of told wrapped in by nephrology. Serum sodium is currently improved and is up to 135 on today's labs, BUN is 18.3 and creatinine 0.7 05/11/2021, the patient remains short of breath congested and wheezy. The same time, his still having blood-tinged sputum and he coughed out another 3 blocks of mucus mixed with blood. This is quite concerning for him. His last CAT scan of the chest was done on 08/19/2020 which is approximately 9 months ago and the patient back then showed no evidence of any bronchiectasis. There was some mild the and background COPD with moderate emphysematous changes in the upper lobes and evidence of biapical pleural scarring. He also had a stable aneurysmal dilatation of the aortic root measuring 4.2 cm in size. Based on all this, and based on this ongoing new onset hemoptysis, I'm going to repeat the CAT scan of the chest. Meanwhile, his blood work is showing a white cell count of 10.8 and hemoglobin of 11. There is some limited drop in hemoglobin compared to 12.9 from 2 days ago. Sodium level dropped again to 128. This has been gradually improving. BUN and creatinine are within normal limits. In terms of treatment, the patient is on DuoNeb nebulized treatment [id number], still on IV Solu- Medrol. He has no antibiotic coverage for now. IV fluids are currently at KVO. The patient is seen today 05/12/2021 in follow-up on the regular medical floor. He is currently sitting up at the bedside. Awake and alert in no acute distress. His mucus today does not reveal any evidence of blood. Sputum culture pending. White count 9.2. Hemoglobin 11.1. Sodium 127. Potassium 4.5. Bicarb 24. BUN 24. Creatinine 0.8. Glucose 135. He is continued on DuoNeb inhalations, Pulmicort and Perforomist inhalations, IV Solu-Medrol. He remains on oral diuretics. Heparin for DVT prophylaxis. The patient is seen today 05/13/2020 follow-up on the regular medical floor. He is awake and alert in no acute distress. Currently sitting up at the bedside. He is maintaining O2 saturations in the mid 90s on room air. No new labs today. Continued on DuoNeb inhalations, Pulmicort and Perforomist inhalations, IV Solu-Medrol. Objective - Vital Signs Vital signs: Vital Signs Temp 97.9 F 05/13/21 08:00 Pulse 84 05/13/21 12:12 Resp 18 05/13/21 12:12 BP 128/66 05/13/21 08:00 Pulse Ox 95 05/13/21 08:56 Intake & Output 05/12/21 05/13/21 05/13/21 18:59 06:59 18:59 Intake Total 1200 Output Total 300 1675 Balance -300 -475 Weight 94.9 kg Intake: Oral 1200 Output: Urine 300 1675 Other: Voiding Method Toilet Toilet Urinal Urinal # Voids 2 - Exam GENERAL EXAM: Alert, very pleasant 66-year-old male, on room air, comfortable in no apparent distress. HEAD: Normocephalic/atraumatic. EYES: Normal reaction of pupils, equal size. Conjunctiva pink, sclera white. NOSE: Clear with pink turbinates. THROAT: No erythema or exudates. NECK: No masses, no JVD, no thyroid enlargement, no adenopathy. CHEST: No chest wall deformity. Symmetrical expansion. LUNGS: Equal air entry with end expiratory wheeze, few scattered rhonchi CVS: Irregular rate and rhythm, normal S1 and S2, no gallops, no murmurs, no rubs ABDOMEN: No hepatosplenomegaly, normal bowel sounds, no guarding or rigidity. EXTREMITIES: No clubbing, 1+ lower extremity, no cyanosis, 2+ pulses and upper and lower extremities. MUSCULOSKELETAL: Muscle strength and tone normal. SPINE: No scoliosis or deformity SKIN: No rashes CENTRAL NERVOUS SYSTEM: No focal deficits, tone is normal in all 4 extremities. PSYCHIATRIC: Alert and oriented -3. Appropriate affect. Intact judgment and insight. - Labs CBC & Chem 7: 05/12/21 04:54 05/13/21 06:16 Labs: Abnormal Lab Results - Last 24 Hours (Table) 05/12/21 05/12/21 05/13/21 Range/Units 17:00 20:30 06:16 Sodium 129 L (135-145) mmol/L Chloride 86 L (96-109) mmol/L Carbon Dioxide 29.9 H (20.0-27.5) mmol/L BUN/Creatinine Ratio 29.39 H (12.00-20.00) Ratio Glucose 119 H (70-110) mg/dL POC Glucose (mg/dL) 130 H 134 H (75-99) mg/dL Magnesium 2.5 H (1.5-2.4) mg/dL 05/13/21 05/13/21 Range/Units 07:26 12:10 Sodium (135-145) mmol/L Chloride (96-109) mmol/L Carbon Dioxide (20.0-27.5) mmol/L BUN/Creatinine Ratio (12.00-20.00) Ratio Glucose (70-110) mg/dL POC Glucose (mg/dL) 128 H 112 H (75-99) mg/dL Magnesium (1.5-2.4) mg/dL Microbiology - Last 24 Hours (Table) 05/12/21 11:38 Gram Stain - Preliminary Sputum Sputum Culture - Preliminary Assessment and Plan Assessment: 1 Acute exacerbation of chronic obstructive pulmonary disease, no evidence of acute pneumonia. Pro calcitonin 0.04 2 Forty five year history of chronic tobacco dependence however quit in 2019 3 Hyponatremia, current sodium 128 4 Left foot pain, x-ray reveals no fractures, Dopplers pending 5 History of atrial fibrillation, currently in normal sinus rhythm 6 History of congestive heart failure 7 History of Herring's esophagus 8 Glaucoma 9 Macular degeneration Plan: The patient was seen and evaluated Stable for discharge from the pulmonary standpoint Continue Levaquin, bronchodilators Complete a prednisone taper starting at 40 mg daily for 4 days I have personally seen and examined the patient and reviewed the documentation. I performed a joint evaluation with the nurse practitioner in this evaluation was done more than 15 minutes. I fully agree with the documentation above and the plan of care.
[2021-05-13 16:53] LABS: Glucose,Whole Blood 151 mg/dL (75-99)
[2021-05-13] MEDS: oxyCODONE-APAP 5-325MG 1 EACH TAB PO PRN (18:02)
[2021-05-13 21:19] LABS: Glucose,Whole Blood 240 mg/dL (75-99)
[2021-05-13] MEDS: LATANOPROST 0.005% OPHTH DROPS 2.5 ML BTL LEFT EYE SCH (22:06)
[2021-05-13] MEDS: ATORVASTATIN 20 MG TAB PO SCH (22:06)
[2021-05-14] MEDS: methylPREDNISolone SOD SUCCI 125 MG/2 ML VIAL IV SCH ×4 (00:44→17:08)
[2021-05-14] MEDS: oxyCODONE-APAP 5-325MG 1 EACH TAB PO PRN ×4 (00:45→21:56)
[2021-05-14 06:56] LABS: Glucose,Whole Blood 99 mg/dL (75-99)
[2021-05-14] MEDS: INSULIN ASPART (NovoLOG) 100 UNIT/ML VIAL SQ SCH ×4 (07:13→21:51)
[2021-05-14] MEDS: IPRATROPIUM-ALBUTEROL 3 ML NEB INHALATION SCH ×4 (07:36→20:54)
[2021-05-14] MEDS: BUDESONIDE 1 MG/2 ML NEBU INHALATION SCH ×2 (07:36→20:54)
[2021-05-14] MEDS: FORMOTEROL FUMARATE 20 MCG/2 ML NEBU INHALATION SCH ×2 (07:36→20:54)
[2021-05-14] MEDS: MULTIVITAMINS, THERA 1 EACH TAB PO SCH (09:13)
[2021-05-14] MEDS: METOPROLOL SUCCINATE (ER) 25 MG TAB.ER.24H PO SCH (09:13)
[2021-05-14] MEDS: TORSEMIDE 20 MG TAB PO SCH (09:13)
[2021-05-14] MEDS: VIT A,C & E-LUTEIN-MINERALS 1 EACH TAB PO SCH ×2 (09:13→21:51)
[2021-05-14] MEDS: SPIRONOLACTONE 25 MG TAB PO SCH (09:13)
[2021-05-14] MEDS: FAMOTIDINE 20 MG TAB PO SCH ×2 (09:14→21:51)
[2021-05-14] MEDS: LEVOFLOXACIN 750 MG TAB PO SCH (09:14)
[2021-05-14] MEDS: HEPARIN SODIUM,PORCINE/PF 5,000 UNIT/0.5 ML SYRINGE SQ SCH ×2 (09:14→21:51)
[2021-05-14] MEDS: DULoxetine HCL 30 MG CAPSULE.DR PO SCH (09:14)
[2021-05-14 11:46] LABS: Glucose,Whole Blood 88 mg/dL (75-99)
[2021-05-14 11:51] LABS: African American GFR (CKD) 101.4 (60.0-200.0); BUN/Creat Ratio 33.44 Ratio (12.00-20.00); Blood Urea Nitrogen 30.1 mg/dL (9.0-27.0); Calcium 9.1 mg/dL (8.7-10.3); Magnesium 2.6 mg/dL (1.5-2.4); Non-African American GFR(CKD) 87.5 (60.0-200.0); Potassium 4.7 mmol/L (3.5-5.5)
--- NOTE | 2021-05-14 14:07 | P.PN ---
Subjective Progress Note Date: 05/14/21 This is a pleasant 66-year-old male patient with a known history of atrial fibrillation, congestive heart failure, Herring's esophagus, chronic obstructive pulmonary disease in a former smoker of 45 years quit in 2019, COVID-19 infection received monoclonal antibodies, not vaccinated and was hospitalized back in February 2021. He presented here to the emergency room yesterday with complaints of breath, cough congestion greenish yellow sputum. He is admitted for COPD exacerbation. Chest x-ray revealed no acute pulmonary process. Normal heart size. White count 9.6. Hemoglobin 12.9. MCV 104. Sodium 128. Potassium 4.1. BUN 13. Creatinine 0.66. Urinalysis clear. He is seen today in consultation on the regular medical floor. He is currently resting comfortably in bed. Awake and alert in no acute distress. He is maintaining good O2 saturations in the 90s on room air. He's been afebrile. Hemodynamically stable. EKG reveals normal sinus rhythm with occasional PACs. X-ray of the left foot reveals diffuse osteopenia but no acute fracture. He's been initiated on DuoNeb inhalations, Pulmicort and Perforomist inhalations, IV Solu-Medrol. Heparin for DVT prophylaxis. On today's evaluation of 05/09/2021, the patient is feeling well and he seems to be slightly less short of breath compared to yesterday. He still bronchospastic and wheezy. His bringing up some minimal amount of mucus. He remains on a combination of DuoNeb nebulized treatments around the clock, and he is also on IV Solu Medrol 60 mg every 6 hours. At the same time, the patient was found to have hyponatremia. Sodium level was at 126. The patient was given a dose of Lasix today by nephrology and the patient was also given a dose of Semsca. Nephrology is on the case regarding the hyponatremia. Noted the initial sodium level was at 123. White cell count is at 9.6 with a hemoglobin of 12.6. The Doppler of the lower extremity of been negative and the patient has no acute cardio pulmonary abnormalities on the chest x-ray. On 05/10/2021 patient seen in follow-up on medical surgical floor. He is on room air, sitting up in the recliner, does not appear to be in any acute distress, he states he had one episode of hemoptysis and coughed up about 2 tablespoons of blood tinged phlegm. Still bronchospastic on physical exam. Vital signs are stable, room air pulse ox is 99%, his been afebrile, hem odynamically has been stable, denies any chest discomfort. He remains on IV steroids with Solu-Medrol 60 mg every 6 hours, he is on Pulmicort, Perforomist, he is on DuoNeb. He continues on his home dose Aldactone, he was started on Demadex, and he was given a dose of told wrapped in by nephrology. Serum sodium is currently improved and is up to 135 on today's labs, BUN is 18.3 and creatinine 0.7 05/11/2021, the patient remains short of breath congested and wheezy. The same time, his still having blood-tinged sputum and he coughed out another 3 blocks of mucus mixed with blood. This is quite concerning for him. His last CAT scan of the chest was done on 08/19/2020 which is approximately 9 months ago and the patient back then showed no evidence of any bronchiectasis. There was some mild the and background COPD with moderate emphysematous changes in the upper lobes and evidence of biapical pleural scarring. He also had a stable aneurysmal dilatation of the aortic root measuring 4.2 cm in size. Based on all this, and based on this ongoing new onset hemoptysis, I'm going to repeat the CAT scan of the chest. Meanwhile, his blood work is showing a white cell count of 10.8 and hemoglobin of 11. There is some limited drop in hemoglobin compared to 12.9 from 2 days ago. Sodium level dropped again to 128. This has been gradually improving. BUN and creatinine are within normal limits. In terms of treatment, the patient is on DuoNeb nebulized treatment [id number], still on IV Solu- Medrol. He has no antibiotic coverage for now. IV fluids are currently at KVO. The patient is seen today 05/12/2021 in follow-up on the regular medical floor. He is currently sitting up at the bedside. Awake and alert in no acute distress. His mucus today does not reveal any evidence of blood. Sputum culture pending. White count 9.2. Hemoglobin 11.1. Sodium 127. Potassium 4.5. Bicarb 24. BUN 24. Creatinine 0.8. Glucose 135. He is continued on DuoNeb inhalations, Pulmicort and Perforomist inhalations, IV Solu-Medrol. He remains on oral diuretics. Heparin for DVT prophylaxis. The patient is seen today 05/13/2020 follow-up on the regular medical floor. He is awake and alert in no acute distress. Currently sitting up at the bedside. He is maintaining O2 saturations in the mid 90s on room air. No new labs today. Continued on DuoNeb inhalations, Pulmicort and Perforomist inhalations, IV Solu-Medrol. 05/14/2020, no new complaints less bronchospastic and evaluation. No significant chest pain. Remains on IV Solu-Medrol. No hemoptysis for now. Sodium level is up to 130. Renal function is stable with a creatinine of 0.9. Objective - Vital Signs Vital signs: Vital Signs Temp 98.6 F 05/14/21 07:24 Pulse 92 05/14/21 11:29 Resp 24 05/14/21 07:24 BP 150/80 05/14/21 07:24 Pulse Ox 98 05/14/21 07:48 Intake & Output 05/13/21 05/14/21 05/14/21 18:59 06:59 18:59 Intake Total 460 180 Output Total 600 300 Balance -140 -120 Weight 95 kg Intake: Oral 460 180 Output: Urine 600 300 Other: Voiding Method Toilet Toilet Urinal Urinal # Bowel Movements 0 - Exam GENERAL EXAM: Alert, very pleasant 66-year-old male, on room air, comfortable in no apparent distress. HEAD: Normocephalic/atraumatic. EYES: Normal reaction of pupils, equal size. Conjunctiva pink, sclera white. NOSE: Clear with pink turbinates. THROAT: No erythema or exudates. NECK: No masses, no JVD, no thyroid enlargement, no adenopathy. CHEST: No chest wall deformity. Symmetrical expansion. LUNGS: Equal air entry with end expiratory wheeze, few scattered rhonchi CVS: Irregular rate and rhythm, normal S1 and S2, no gallops, no murmurs, no rubs ABDOMEN: No hepatosplenomegaly, normal bowel sounds, no guarding or rigidity. EXTREMITIES: No clubbing, 1+ lower extremity, no cyanosis, 2+ pulses and upper and lower extremities. MUSCULOSKELETAL: Muscle strength and tone normal. SPINE: No scoliosis or deformity SKIN: No rashes CENTRAL NERVOUS SYSTEM: No focal deficits, tone is normal in all 4 extremities. PSYCHIATRIC: Alert and oriented -3. Appropriate affect. Intact judgment and insight. - Labs CBC & Chem 7: 05/12/21 04:54 05/14/21 07:02 Labs: Abnormal Lab Results - Last 24 Hours (Table) 05/13/21 05/13/21 05/14/21 Range/Units 16:51 21:17 07:02 Sodium 130 L (135-145) mmol/L Chloride 87 L (96-109) mmol/L Carbon Dioxide 30.0 H (20.0-27.5) mmol/L BUN 30.1 H (9.0-27.0) mg/dL BUN/Creatinine Ratio 33.44 H (12.00-20.00) Ratio Glucose 116 H (70-110) mg/dL POC Glucose (mg/dL) 151 H 240 H (75-99) mg/dL Magnesium 2.6 H (1.5-2.4) mg/dL Microbiology - Last 24 Hours (Table) 05/12/21 11:38 Gram Stain - Preliminary Sputum Sputum Culture - Final Moraxella(branhamella) catarra Assessment and Plan Plan: #1. Acute exacerbation of chronic obstructive pulmonary disease with no corbin dence of acute pneumonia #2. COPD with upper lobe predominance and biapical scarring. Note that the patient has extensive history of nicotine dependence, patient carries a [id number] smoking history and quit in 2019 #3. Hyponatremia, improved, 128 #4. Left foot pain, no evidence of fracture on the x-ray, Dopplers bilateral lower extremities were negative for DVT #5. History of atrial fibrillation, paroxysmal, currently in sinus mechanism #6. History of CHF with systolic dysfunction #7. History of Herring's esophagus #8. Glaucoma #9. Macular degeneration #10. Osteoarthritis Plan: Continue bronchodilators with DuoNeb Pulmicort Respules and Perforomist CAT scan of the chest was negative for any acute abnormalities and COPD No further bouts of hemoptysis Fluid restriction monitor sodium level, sodium level is up to 130 Continue IV steroids, continue bronchodilators We'll continue to follow his clinical course Switch this patient PREDNISONE as of tomorrow
[2021-05-14 16:30] LABS: Glucose,Whole Blood 137 mg/dL (75-99)
[2021-05-14 20:46] LABS: Glucose,Whole Blood 138 mg/dL (75-99)
[2021-05-14] MEDS: LATANOPROST 0.005% OPHTH DROPS 2.5 ML BTL LEFT EYE SCH (21:51)
[2021-05-14] MEDS: ATORVASTATIN 20 MG TAB PO SCH (21:51)
[2021-05-15] MEDS: methylPREDNISolone SOD SUCCI 125 MG/2 ML VIAL IV SCH ×3 (01:02→11:34)
[2021-05-15] MEDS: oxyCODONE-APAP 5-325MG 1 EACH TAB PO PRN ×2 (04:35→22:10)
[2021-05-15 06:53] LABS: Glucose,Whole Blood 111 mg/dL (75-99)
[2021-05-15] MEDS: INSULIN ASPART (NovoLOG) 100 UNIT/ML VIAL SQ SCH ×4 (06:57→22:01)
[2021-05-15] MEDS: VIT A,C & E-LUTEIN-MINERALS 1 EACH TAB PO SCH ×2 (07:49→22:10)
[2021-05-15] MEDS: LEVOFLOXACIN 750 MG TAB PO SCH (07:49)
[2021-05-15] MEDS: HEPARIN SODIUM,PORCINE/PF 5,000 UNIT/0.5 ML SYRINGE SQ SCH ×2 (07:49→22:09)
[2021-05-15] MEDS: DULoxetine HCL 30 MG CAPSULE.DR PO SCH (07:49)
[2021-05-15] MEDS: MULTIVITAMINS, THERA 1 EACH TAB PO SCH (07:49)
[2021-05-15] MEDS: TORSEMIDE 20 MG TAB PO SCH ×2 (07:50→22:09)
[2021-05-15] MEDS: SPIRONOLACTONE 25 MG TAB PO SCH (07:50)
[2021-05-15] MEDS: FAMOTIDINE 20 MG TAB PO SCH ×2 (07:50→22:09)
[2021-05-15] MEDS: METOPROLOL SUCCINATE (ER) 25 MG TAB.ER.24H PO SCH (07:50)
[2021-05-15] MEDS: IPRATROPIUM-ALBUTEROL 3 ML NEB INHALATION SCH ×4 (08:12→20:59)
[2021-05-15] MEDS: FORMOTEROL FUMARATE 20 MCG/2 ML NEBU INHALATION SCH ×2 (08:12→20:59)
[2021-05-15] MEDS: BUDESONIDE 1 MG/2 ML NEBU INHALATION SCH ×2 (08:12→20:59)
--- NOTE | 2021-05-15 10:08 | P.PN ---
Subjective Patient is seen for follow-up for hypervolemic hyponatremia. He is maintained on torsemide. Serum sodium level has been improving. He did receive a dose of Samsca. Sodium was 1:30 yesterday. Objective - Vital Signs Vital signs: Vital Signs Temp 98.3 F 05/15/21 08:00 Pulse 80 05/15/21 08:37 Resp 18 05/15/21 08:00 BP 133/66 05/15/21 08:00 Pulse Ox 98 05/15/21 08:00 Intake & Output 05/14/21 05/15/21 05/15/21 18:59 06:59 18:59 Intake Total 180 360 Output Total 301 1600 Balance -121 -1240 Weight 93.6 kg Intake: Oral 180 360 Output: Urine 301 1600 Other: Voiding Method Toilet Urinal - Exam Patient is awake comfortable. Not in any acute distress. Examination of the heart S1 and S2 Examination lungs bilateral breath sounds are heard Abdomen is soft nontender obese Examination lower extremity shows edema 2+ bilaterally SOLE LEVELER exam grossly intact - Labs CBC & Chem 7: 05/12/21 04:54 05/14/21 07:02 Labs: Abnormal Lab Results - Last 24 Hours (Table) 05/14/21 05/14/21 05/14/21 Range/Units 07:02 16:28 20:45 Sodium 130 L (135-145) mmol/L Chloride 87 L (96-109) mmol/L Carbon Dioxide 30.0 H (20.0-27.5) mmol/L BUN 30.1 H (9.0-27.0) mg/dL BUN/Creatinine Ratio 33.44 H (12.00-20.00) Ratio Glucose 116 H (70-110) mg/dL POC Glucose (mg/dL) 137 H 138 H (75-99) mg/dL Magnesium 2.6 H (1.5-2.4) mg/dL 05/15/21 Range/Units 06:52 Sodium (135-145) mmol/L Chloride (96-109) mmol/L Carbon Dioxide (20.0-27.5) mmol/L BUN (9.0-27.0) mg/dL BUN/Creatinine Ratio (12.00-20.00) Ratio Glucose (70-110) mg/dL POC Glucose (mg/dL) 111 H (75-99) mg/dL Magnesium (1.5-2.4) mg/dL Microbiology - Last 24 Hours (Table) 05/12/21 11:38 Gram Stain - Preliminary Sputum Sputum Culture - Final Moraxella(branhamella) catarra Assessment and Plan Assessment: 1. Hyponatremia, hypERvolemic, currently improved with IV Lasix 2. CHF exacerbation previous echo in July 2020 showed ejection fraction 55-60%. 3. Acute COPD exacerbation 4. History of Herring's esophagus 5. History of A. fib currently in normal sinus rhythm Plan: Continue to diurese patient Repeat labs in a.m. Patient is advised to avoid high salt intake Increase Demadex to twice a day
[2021-05-15 11:34] LABS: Glucose,Whole Blood 110 mg/dL (75-99)
[2021-05-15 12:37] LABS: Basophils # (A) 0.02 X 10*3/uL (0.00-0.10); Basophils % (A) 0.2 %; Eosinophils # (A) 0 X 10*3/uL (0.04-0.35); Eosinophils % (A) 0 %; HCT 39.7 % (39.6-50.0); HGB 12.5 g/dL (13.0-17.0); Immature Grans, Automated 2.5 %; Lymphocytes % (A) 9.1 %; MCHC 31.5 g/dL (32.0-37.0); MCV 104.7 fL (80.0-97.0); Mean Platelet Volume 9.1 fL (9.5-12.2); Monocytes # (A) 0.92 X 10*3/uL (0.20-1.00); NRBC Per 100 WBC 0 /100 WBCS (0.0-0.0); Neutrophils # (A) 10.69 X 10*3/uL (1.80-7.70); Neutrophils % (A) 81.2 %; Platelet Count 409 X 10*3/uL (140-440); RBC 3.79 X 10*6/uL (4.40-5.60); RDW 13.3 % (11.5-14.5); WBC 13.16 X 10*3/uL (4.50-10.00)
[2021-05-15 12:47] LABS: African American GFR (CKD) 90.3 (60.0-200.0); Anion Gap 14.2 mmol/L (10.00-18.00); BUN/Creat Ratio 28.59 Ratio (12.00-20.00); Blood Urea Nitrogen 28.3 mg/dL (9.0-27.0); Calcium 9.1 mg/dL (8.7-10.3); Carbon Dioxide 27.6 mmol/L (20.0-27.5); Non-African American GFR(CKD) 77.9 (60.0-200.0); Potassium 5.1 mmol/L (3.5-5.5)
[2021-05-15] MEDS: predniSONE 20 MG TAB PO SCH (13:08)
--- NOTE | 2021-05-15 16:20 | P.PN ---
Subjective Progress Note Date: 05/15/21 This is a pleasant 66-year-old male patient with a known history of atrial fibrillation, congestive heart failure, Herring's esophagus, chronic obstructive pulmonary disease in a former smoker of 45 years quit in 2019, COVID-19 infection received monoclonal antibodies, not vaccinated and was hospitalized back in February 2021. He presented here to the emergency room yesterday with complaints of breath, cough congestion greenish yellow sputum. He is admitted for COPD exacerbation. Chest x-ray revealed no acute pulmonary process. Normal heart size. White count 9.6. Hemoglobin 12.9. MCV 104. Sodium 128. Potassium 4.1. BUN 13. Creatinine 0.66. Urinalysis clear. He is seen today in consultation on the regular medical floor. He is currently resting comfortably in bed. Awake and alert in no acute distress. He is maintaining good O2 saturations in the 90s on room air. He's been afebrile. Hemodynamically stable. EKG reveals normal sinus rhythm with occasional PACs. X-ray of the left foot reveals diffuse osteopenia but no acute fracture. He's been initiated on DuoNeb inhalations, Pulmicort and Perforomist inhalations, IV Solu-Medrol. Heparin for DVT prophylaxis. On today's evaluation of 05/09/2021, the patient is feeling well and he seems to be slightly less short of breath compared to yesterday. He still bronchospastic and wheezy. His bringing up some minimal amount of mucus. He remains on a combination of DuoNeb nebulized treatments around the clock, and he is also on IV Solu Medrol 60 mg every 6 hours. At the same time, the patient was found to have hyponatremia. Sodium level was at 126. The patient was given a dose of Lasix today by nephrology and the patient was also given a dose of Semsca. Nephrology is on the case regarding the hyponatremia. Noted the initial sodium level was at 123. White cell count is at 9.6 with a hemoglobin of 12.6. The Doppler of the lower extremity of been negative and the patient has no acute cardio pulmonary abnormalities on the chest x-ray. On 05/10/2021 patient seen in follow-up on medical surgical floor. He is on room air, sitting up in the recliner, does not appear to be in any acute distress, he states he had one episode of hemoptysis and coughed up about 2 tablespoons of blood tinged phlegm. Still bronchospastic on physical exam. Vital signs are stable, room air pulse ox is 99%, his been afebrile, hem odynamically has been stable, denies any chest discomfort. He remains on IV steroids with Solu-Medrol 60 mg every 6 hours, he is on Pulmicort, Perforomist, he is on DuoNeb. He continues on his home dose Aldactone, he was started on Demadex, and he was given a dose of told wrapped in by nephrology. Serum sodium is currently improved and is up to 135 on today's labs, BUN is 18.3 and creatinine 0.7 05/11/2021, the patient remains short of breath congested and wheezy. The same time, his still having blood-tinged sputum and he coughed out another 3 blocks of mucus mixed with blood. This is quite concerning for him. His last CAT scan of the chest was done on 08/19/2020 which is approximately 9 months ago and the patient back then showed no evidence of any bronchiectasis. There was some mild the and background COPD with moderate emphysematous changes in the upper lobes and evidence of biapical pleural scarring. He also had a stable aneurysmal dilatation of the aortic root measuring 4.2 cm in size. Based on all this, and based on this ongoing new onset hemoptysis, I'm going to repeat the CAT scan of the chest. Meanwhile, his blood work is showing a white cell count of 10.8 and hemoglobin of 11. There is some limited drop in hemoglobin compared to 12.9 from 2 days ago. Sodium level dropped again to 128. This has been gradually improving. BUN and creatinine are within normal limits. In terms of treatment, the patient is on DuoNeb nebulized treatment [id number], still on IV Solu- Medrol. He has no antibiotic coverage for now. IV fluids are currently at KVO. The patient is seen today 05/12/2021 in follow-up on the regular medical floor. He is currently sitting up at the bedside. Awake and alert in no acute distress. His mucus today does not reveal any evidence of blood. Sputum culture pending. White count 9.2. Hemoglobin 11.1. Sodium 127. Potassium 4.5. Bicarb 24. BUN 24. Creatinine 0.8. Glucose 135. He is continued on DuoNeb inhalations, Pulmicort and Perforomist inhalations, IV Solu-Medrol. He remains on oral diuretics. Heparin for DVT prophylaxis. The patient is seen today 05/13/2020 follow-up on the regular medical floor. He is awake and alert in no acute distress. Currently sitting up at the bedside. He is maintaining O2 saturations in the mid 90s on room air. No new labs today. Continued on DuoNeb inhalations, Pulmicort and Perforomist inhalations, IV Solu-Medrol. 05/14/2020, no new complaints less bronchospastic and evaluation. No significant chest pain. Remains on IV Solu-Medrol. No hemoptysis for now. Sodium level is up to 130. Renal function is stable with a creatinine of 0.9. 05/15/2021, the patient continues to improve. No new complaints. No hemoptysis. Less short of breath. Will be taken off the IV Solu Medrol and be started on prednisone burst taper today. He remains on DuoNeb neb treatments around the clock. Remains on Levaquin orally 750 mg by mouth on a daily basis to complete a total of seven-day course. Heparin subcu for DVT prophylaxis. Outpatient medications of been ordered resume. The patient is going to be ending up at [facility] on the [place] probably by tomorrow. The patient continues to have fluctuation in the sodium level which is up to 1:30 at one point and currently down to 127. The patient on Demadex 20 mg twice a day in addition to Aldactone 25 mg by mouth daily. The findings on the case. Suggest backing off on the diuretics. Objective - Vital Signs Vital signs: Vital Signs Temp 98.6 F 05/15/21 14:00 Pulse 76 05/15/21 15:55 Resp 24 05/15/21 14:00 BP 125/70 05/15/21 14:00 Pulse Ox 90 L 05/15/21 14:00 Intake & Output 05/14/21 05/15/21 05/15/21 18:59 06:59 18:59 Intake Total 180 360 Output Total 301 1600 1700 Balance -121 -1240 -1700 Weight 93.6 kg Intake: Oral 180 360 Output: Urine 301 1600 1700 Other: Voiding Method Toilet Urinal - Exam GENERAL EXAM: Alert, very pleasant 66-year-old male, on room air, comfortable in no apparent distress. HEAD: Normocephalic/atraumatic. EYES: Normal reaction of pupils, equal size. Conjunctiva pink, sclera white. NOSE: Clear with pink turbinates. THROAT: No erythema or exudates. NECK: No masses, no JVD, no thyroid enlargement, no adenopathy. CHEST: No chest wall deformity. Symmetrical expansion. LUNGS: Equal air entry with end expiratory wheeze, few scattered rhonchi CVS: Irregular rate and rhythm, normal S1 and S2, no gallops, no murmurs, no rubs ABDOMEN: No hepatosplenomegaly, normal bowel sounds, no guarding or rigidity. EXTREMITIES: No clubbing, 1+ lower extremity, no cyanosis, 2+ pulses and upper and lower extremities. MUSCULOSKELETAL: Muscle strength and tone normal. SPINE: No scoliosis or deformity SKIN: No rashes CENTRAL NERVOUS SYSTEM: No focal deficits, tone is normal in all 4 extremities. PSYCHIATRIC: Alert and oriented -3. Appropriate affect. Intact judgment and insight. - Labs CBC & Chem 7: 05/15/21 04:33 05/15/21 04:33 Labs: Abnormal Lab Results - Last 24 Hours (Table) 05/14/21 05/14/21 05/15/21 Range/Units 16:28 20:45 04:33 WBC 13.16 H (4.50-10.00) X 10*3/uL RBC 3.79 L (4.40-5.60) X 10*6/uL Hgb 12.5 L (13.0-17.0) g/dL MCV 104.7 H (80.0-97.0) fL MCH 33.0 H (27.0-32.0) pg MCHC 31.5 L (32.0-37.0) g/dL MPV 9.1 L (9.5-12.2) fL Immature Gran # 0.33 H (0.00-0.04) X 10*3/uL Neutrophils # 10.69 H (1.80-7.70) X 10*3/uL Eosinophils # 0 L (0.04-0.35) X 10*3/uL Sodium (135-145) mmol/L Chloride (96-109) mmol/L Carbon Dioxide (20.0-27.5) mmol/L BUN (9.0-27.0) mg/dL BUN/Creatinine Ratio (12.00-20.00) Ratio Glucose (70-110) mg/dL POC Glucose (mg/dL) 137 H 138 H (75-99) mg/dL 05/15/21 05/15/21 05/15/21 Range/Units 04:33 06:52 11:33 WBC (4.50-10.00) X 10*3/uL RBC (4.40-5.60) X 10*6/uL Hgb (13.0-17.0) g/dL MCV (80.0-97.0) fL MCH (27.0-32.0) pg MCHC (32.0-37.0) g/dL MPV (9.5-12.2) fL Immature Gran # (0.00-0.04) X 10*3/uL Neutrophils # (1.80-7.70) X 10*3/uL Eosinophils # (0.04-0.35) X 10*3/uL Sodium 127 L (135-145) mmol/L Chloride 85 L (96-109) mmol/L Carbon Dioxide 27.6 H (20.0-27.5) mmol/L BUN 28.3 H (9.0-27.0) mg/dL BUN/Creatinine Ratio 28.59 H (12.00-20.00) Ratio Glucose 120 H (70-110) mg/dL POC Glucose (mg/dL) 111 H 110 H (75-99) mg/dL Microbiology - Last 24 Hours (Table) 05/12/21 11:38 Gram Stain - Preliminary Sputum Sputum Culture - Preliminary Moraxella(branhamella) catarra Streptococcus pneumoniae Assessment and Plan Plan: #1. Acute exacerbation of chronic obstructive pulmonary disease with no evidence of acute pneumonia #2. COPD with upper lobe predominance and biapical scarring. Note that the patient has extensive history of nicotine dependence, patient carries a [id number] smoking history and quit in 2019 #3. Hyponatremia, improved, 127 #4. Left foot pain, no evidence of fracture on the x-ray, Dopplers bilateral lower extremities were negative for DVT #5. History of atrial fibrillation, paroxysmal, currently in sinus mechanism #6. History of CHF with systolic dysfunction #7. History of Herring's esophagus #8. Glaucoma #9. Macular degeneration #10. Osteoarthritis Plan: Continue bronchodilators with DuoNeb Pulmicort Respules and Perforomist CAT scan of the chest was negative for any acute abnormalities and COPD No further bouts of hemoptysis Discontinued IV Solu Medrol start the patient a prednisone burst taper Sodium level is at 127 still fluctuating and nephrology is on the case Possible discharge tomorrow to [facility] on the [place]
[2021-05-15 17:08] LABS: Glucose,Whole Blood 139 mg/dL (75-99)
[2021-05-15 20:28] LABS: Glucose,Whole Blood 102 mg/dL (75-99)
[2021-05-15] MEDS: ATORVASTATIN 20 MG TAB PO SCH (22:09)
[2021-05-15] MEDS: LATANOPROST 0.005% OPHTH DROPS 2.5 ML BTL LEFT EYE SCH (22:10)
--- NOTE | 2021-05-16 01:05 | P.PN ---
Subjective Progress Note Date: 05/13/21 This is a pleasant 66 years old male with past medical history of Atrial Fibrillation, Heart Failure, COPD, Hyperlipidemia, Osteoarthritis chronic systolic chf, bronchitectoasis/bronchitis, Herring's esophagus, hiatal hernia, anemia, rectus sheath hematoma, L eye glaucoma, chronic low back and L knee pain , does not tolerate statins. His rehabilitator is Dr. rS for CHF Presents because shortness of breath for 3 days duration. Patient says that is been having dyspnea for the last 3-4 days and was getting worse and helped by his usual nebulizers and inhalers, associated with little occasional off with little phlegm which is crease mesh yellow in color. He has chest pain with coughing appointments/10. Metamucil once parents on both sides felt like sharp like a knife and the case by deep breathing. Also has been complaining from chronic bilateral leg pain and more on his knees. He denies any change in bowel habits, no urinary complaints, no headache, dizziness or numbness and weakness. He has chronic numbness in his both feet and he follow-up with the urologist Dr. Chilango Lara. He quit smoking 3 years ago, occasional alcohol, no illicit drugs. Vitals stable, blood pressure is 97% on room air and patient is afebrile. Labs showing normal WBC 9.6, hemoglobin 12.9, platelet level is normal. INR 0.9, sodium was low at 123, rest of BMP and liver enzymes are unremarkable except for hyponatremia . Troponin is negative. ProBNP is normal 641, urinalysis is negative, urine osmolality is low 153 and 235. EKG showed normal sinus rhythm at [address]-T changes Chest x-ray: No active cardiopulmonary process. Morphine and breathing treatment 05/10/2019 Patient is currently sitting in the chair. Awake alert and oriented x3. On room air. Still having bilateral diffuse rhonchi and coarse breath sounds. Patient is being current on IV Solu-Medrol and duo nebs and Pulmicort. Pulmonary is on board. No complaints of chest pain. Patient does have congestive cough and unable to bring out any sputum. No fever no chills.. Laboratory data showed sodium 126 potassium 3.8 chloride 89 BUN 14 creatinine 0.57 Venous duplex scan of the lower extremities showed negative for DVT. 05/10/21 Patient is sitting in the recliner. Still complains of shortness of breath and exertional dyspnea. Patient had one episode of hemoptysis. Otherwise denies any complaints of chest pain. No worsening shortness of breath. No fever no chills. Patient is being continued IV Solu-Medrol 60 mg every 6 hourly and duo nebs and Pulmicort. Patient is being current Aldactone and was started on Demadex. Laboratory data showed sodium 126 potassium 3.8 and chloride 89 BUN 49 creatinine 0.57. Nephrology and pulmonary is on board. 05/11/2021 Patient is in the medical floor. Still having shortness of breath and exertional dyspnea and diffuse wheezing on examination. Still having cough with blood-tinged sputum. CT chest was ordered. Otherwise no complaints of chest pain. Patient is being continued IV Solu-Medrol 60 mg every 6 hourly and Pulmicort and Perforomist. Patient is also on Aldactone and torsemide. Laboratory data showed WBC 10.85 hemoglobin 11.0 and platelets 335 sodium 128 potassium 5.0 chloride 88 BUN 23.5 and creatinine 0.8 and calcium 8.9. Nephrology and pulmonary is on board. 05/12/2021 Patient is currently sitting on the side of the bed. Awake alert and oriented x3. Breathing status is better today compared to yesterday. No complaints of chest pain. Patient is being continued on IV Solu-Medrol 60 g every 6 hourly, Pulmicort and Perforomist and duo nebs. Also diuretics. CT of the chest done yesterday showed there is some pleural thickening and reticular infiltrate at the lung apices consistent with scarring. No change compared to old exam. Mild pulmonary emphysema. No increased pulmonary density compatible exam. Patient was started on antibiotics of Levaquin. Otherwise patient is also complaining of left knee swelling and pain. Laboratory showed WBC 9.28 hemoglobin 11.1 and platelets 359 sodium 137 potassium 4.5 chloride 87 BUN 23.5 and creatinine 0.8 05/13/2021 Patient is currently sitting on the side of the bed. No complaints of chest pain. Still having shortness of breath and exertional dyspnea. Patient is being continued on IV Solu-Medrol, duo nebs, Pulmicort and Perforomist. Awake alert and oriented x3. Currently on room air. Orthopedic surgery has seen the patient due to bilateral knee pain. Recommends pain management consultation patient is not a surgical candidate at this time. Patient has been afebrile. Does have cough without any sputum production. No chest pain. No headache or dizziness or lightheadedness. PT OT is on board and possible discharge to rehab. . Current medications reviewed. Objective - Vital Signs Vital signs: Vital Signs Temp 98.4 F 05/13/21 19:57 Pulse 92 05/13/21 20:54 Resp 17 05/13/21 19:57 BP 126/55 05/13/21 19:57 Pulse Ox 98 05/13/21 19:57 Intake & Output 05/13/21 05/13/21 05/14/21 06:59 18:59 06:59 Intake Total 1200 Output Total 1675 Balance -475 Intake: Oral 1200 Output: Urine 1675 Other: Voiding Method Toilet Toilet Urinal Urinal # Voids 2 - Exam GENERAL: The patient is alert and oriented x3, not in any acute distress. Obese with BMI 31.4 HEENT: Pupils are round and equally reacting to light. EOMI. No scleral icterus. No conjunctival pallor. Normocephalic, atraumatic. No pharyngeal erythema. No thyromegaly. CARDIOVASCULAR: S1 and S2 present. No murmurs, rubs, or gallops. PULMONARY: Bilateral diffuse wheezing and coarse breath sounds and scattered rhonchi.. ABDOMEN: Soft, nontender, nondistended, normoactive bowel sounds. No palpable organomegaly. MUSCULOSKELETAL: No joint swelling or deformity. -EXTREMITIES: No cyanosis, clubbing, bilateral leg edema 2+. Left knee joint effusion NEUROLOGICAL: Gross neurological examination did not reveal any focal deficits. SKIN: No rashes. No petechiae - Labs CBC & Chem 7: 05/15/21 04:33 05/15/21 04:33 Labs: Abnormal Lab Results - Last 24 Hours (Table) 05/13/21 05/13/21 05/13/21 Range/Units 06:16 07:26 12:10 Sodium 129 L (135-145) mmol/L Chloride 86 L (96-109) mmol/L Carbon Dioxide 29.9 H (20.0-27.5) mmol/L BUN/Creatinine Ratio 29.39 H (12.00-20.00) Ratio Glucose 119 H (70-110) mg/dL POC Glucose (mg/dL) 128 H 112 H (75-99) mg/dL Magnesium 2.5 H (1.5-2.4) mg/dL 05/13/21 05/13/21 Range/Units 16:51 21:17 Sodium (135-145) mmol/L Chloride (96-109) mmol/L Carbon Dioxide (20.0-27.5) mmol/L BUN/Creatinine Ratio (12.00-20.00) Ratio Glucose (70-110) mg/dL POC Glucose (mg/dL) 151 H 240 H (75-99) mg/dL Magnesium (1.5-2.4) mg/dL Microbiology - Last 24 Hours (Table) 05/12/21 11:38 Gram Stain - Preliminary Sputum Sputum Culture - Preliminary Assessment and Plan Assessment: Acute COPD exacerbation Hyponatremia. Sodium 128 likely due to decreased solute intake and hypervolemia Left knee joint effusion likely due to osteoarthritis.Seen by orthopedic surgery. No surgical intervention at this time. Pain management service was consulted. Acute on Chronic systolic heart failure, with bilateral feet and leg swelling. no pulmonary congestion Paroxysmal atrial fibrillation, not on anticoagulation Peripheral neuropathy Hyperlipidemia History of osteoarthritis History of bronchiectasis and bronchitis History of Herring's esophagus Plan: This is a pleasant 66 years old male who presents with COPD and hyponatremia Patient is being continued on solumedrol 60 mg every 6 hourly.Continue with DuoNeb's and Pulmicort. started on spironolactone and Demadex was added. Lasix was discontinued.. Continue with fluid restriction 1200 mL per day. No evidence of DVT of the bilateral lower extremities duplex scan. Labs and medication were reviewed.. Monitor lytes and vitals. DVT and GI prophylaxis DVT prophylaxis: Subcutaneous heparin GI Prophylaxis: Pepcid PT/OT: Pending Prognosis is guarded Time with Patient: Greater than 30
--- NOTE | 2021-05-16 01:09 | P.PN ---
Subjective Progress Note Date: 05/14/21 This is a pleasant 66 years old male with past medical history of Atrial Fibrillation, Heart Failure, COPD, Hyperlipidemia, Osteoarthritis chronic systolic chf, bronchitectoasis/bronchitis, Herring's esophagus, hiatal hernia, anemia, rectus sheath hematoma, L eye glaucoma, chronic low back and L knee pain , does not tolerate statins. 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 Sr for CHF Presents because shortness of breath for 3 days duration. Patient says that is been having dyspnea for the last 3-4 days and was getting worse and helped by his usual nebulizers and inhalers, associated with little occasional off with little phlegm which is crease mesh yellow in color. He has chest pain with coughing appointments/10. Metamucil once parents on both sides felt like sharp like a knife and the case by deep breathing. Also has been complaining from chronic bilateral leg pain and more on his knees. He denies any change in bowel habits, no urinary complaints, no headache, dizziness or numbness and weakness. He has chronic numbness in his both feet and he follow-up with the urologist Dr. Chilango Lara. He quit smoking 3 years ago, occasional alcohol, no illicit drugs. Vitals stable, blood pressure is 97% on room air and patient is afebrile. Labs showing normal WBC 9.6, hemoglobin 12.9, platelet level is normal. INR 0.9, sodium was low at 123, rest of BMP and liver enzymes are unremarkable except for hyponatremia . Troponin is negative. ProBNP is normal 641, urinalysis is negative, urine osmolality is low 153 and 235. EKG showed normal sinus rhythm at [address]-T changes Chest x-ray: No active cardiopulmonary process. Morphine and breathing treatment 05/10/2019 Patient is currently sitting in the chair. Awake alert and oriented x3. On room air. Still having bilateral diffuse rhonchi and coarse breath sounds. Patient is being current on IV Solu-Medrol and duo nebs and Pulmicort. Pulmonary is on board. No complaints of chest pain. Patient does have congestive cough and unable to bring out any sputum. No fever no chills.. Laboratory data showed sodium 126 potassium 3.8 chloride 89 BUN 14 creatinine 0.57 Venous duplex scan of the lower extremities showed negative for DVT. 05/10/21 Patient is sitting in the recliner. Still complains of shortness of breath and exertional dyspnea. Patient had one episode of hemoptysis. Otherwise denies any complaints of chest pain. No worsening shortness of breath. No fever no chills. Patient is being continued IV Solu-Medrol 60 mg every 6 hourly and duo nebs and Pulmicort. Patient is being current Aldactone and was started on Demadex. Laboratory data showed sodium 126 potassium 3.8 and chloride 89 BUN 49 creatinine 0.57. Nephrology and pulmonary is on board. 05/11/2021 Patient is in the medical floor. Still having shortness of breath and exertional dyspnea and diffuse wheezing on examination. Still having cough with blood-tinged sputum. CT chest was ordered. Otherwise no complaints of chest pain. Patient is being continued IV Solu-Medrol 60 mg every 6 hourly and Pulmicort and Perforomist. Patient is also on Aldactone and torsemide. Laboratory data showed WBC 10.85 hemoglobin 11.0 and platelets 335 sodium 128 potassium 5.0 chloride 88 BUN 23.5 and creatinine 0.8 and calcium 8.9. Nephrology and pulmonary is on board. 05/12/2021 Patient is currently sitting on the side of the bed. Awake alert and oriented x3. Breathing status is better today compared to yesterday. No complaints of chest pain. Patient is being continued on IV Solu-Medrol 60 g every 6 hourly, Pulmicort and Perforomist and duo nebs. Also diuretics. CT of the chest done yesterday showed there is some pleural thickening and reticular infiltrate at the lung apices consistent with scarring. No change compared to old exam. Mild pulmonary emphysema. No increased pulmonary density compatible exam. Patient was started on antibiotics of Levaquin. Otherwise patient is also complaining of left knee swelling and pain. Laboratory showed WBC 9.28 hemoglobin 11.1 and platelets 359 sodium 137 potassium 4.5 chloride 87 BUN 23.5 and creatinine 0.8 05/13/2021 Patient is currently sitting on the side of the bed. No complaints of chest pain. Still having shortness of breath and exertional dyspnea. Patient is being continued on IV Solu-Medrol, duo nebs, Pulmicort and Perforomist. Awake alert and oriented x3. Currently on room air. Orthopedic surgery has seen the patient due to bilateral knee pain. Recommends pain management consultation patient is not a surgical candidate at this time. Patient has been afebrile. Does have cough without any sputum production. No chest pain. No headache or dizziness or lightheadedness. PT OT is on board and possible discharge to rehab. 05/14/2021 Patient is currently resting in bed. Awake alert and oriented x3. No complaints of chest pain or worsening shortness breath. Patient is being continued on IV Solu-Medrol, duo nebs, Pulmicort and Perforomist. Otherwise laboratory data showed sodium 130 potassium 4.7 chloride 87 bicarb is 30 BUN 30.1 and creatinine 0.9 and magnesium 2.6 Patient has been afebrile. No headache or dizziness or lightheadedness. No fever no chills. No nausea vomiting abdominal pain or diarrhea tolerating oral diet sputum cultures grew Moraxella and strep pneumonia. Currently on antibiotics -Levaquin. Current medications reviewed. Objective - Vital Signs Vital signs: Vital Signs Temp 98.4 F 05/14/21 19:37 Pulse 82 05/14/21 21:23 Resp 17 05/14/21 19:37 BP 117/67 05/14/21 19:37 Pulse Ox 97 05/14/21 19:37 Intake & Output 05/14/21 05/14/21 05/15/21 06:59 18:59 06:59 Intake Total 460 180 Output Total 600 301 Balance -140 -121 Weight 95 kg Intake: Oral 460 180 Output: Urine 600 301 Other: Voiding Method Toilet Urinal # Bowel Movements 0 - Exam GENERAL: The patient is alert and oriented x3, not in any acute distress. Obese with BMI 31.4 HEENT: Pupils are round and equally reacting to light. EOMI. No scleral icterus. No conjunctival pallor. Normocephalic, atraumatic. No pharyngeal erythema. No thyromegaly. CARDIOVASCULAR: S1 and S2 present. No murmurs, rubs, or gallops. PULMONARY: Bilateral diffuse wheezing and scattered rhonchi.. ABDOMEN: Soft, nontender, nondistended, normoactive bowel sounds. No palpable organomegaly. MUSCULOSKELETAL: No joint swelling or deformity. -EXTREMITIES: No cyanosis, clubbing, bilateral leg edema 2+. Left knee joint effusion NEUROLOGICAL: Gross neurological examination did not reveal any focal deficits. SKIN: No rashes. No petechiae - Labs CBC & Chem 7: 05/15/21 04:33 05/15/21 04:33 Labs: Abnormal Lab Results - Last 24 Hours (Table) 05/14/21 05/14/21 05/14/21 Range/Units 07:02 16:28 20:45 Sodium 130 L (135-145) mmol/L Chloride 87 L (96-109) mmol/L Carbon Dioxide 30.0 H (20.0-27.5) mmol/L BUN 30.1 H (9.0-27.0) mg/dL BUN/Creatinine Ratio 33.44 H (12.00-20.00) Ratio Glucose 116 H (70-110) mg/dL POC Glucose (mg/dL) 137 H 138 H (75-99) mg/dL Magnesium 2.6 H (1.5-2.4) mg/dL Microbiology - Last 24 Hours (Table) 05/12/21 11:38 Gram Stain - Preliminary Sputum Sputum Culture - Final Moraxella(branhamella) catarra Assessment and Plan Assessment: Acute COPD exacerbation Hyponatremia. Sodium 128 likely due to decreased solute intake and hypervolemia Left knee joint effusion likely due to osteoarthritis.Seen by orthopedic surgery. No surgical intervention at this time. Pain management service was consulted. Acute on Chronic systolic heart failure, with bilateral feet and leg swelling. no pulmonary congestion Paroxysmal atrial fibrillation, not on anticoagulation Peripheral neuropathy Hyperlipidemia History of osteoarthritis History of bronchiectasis and bronchitis History of Herring's esophagus Plan: This is a pleasant 66 years old male who presents with COPD and hyponatremia Patient is being continued on solumedrol 60 mg every 6 hourly.Continue with DuoNeb's and Pulmicort. started on spironolactone and Demadex was added. Lasix was discontinued.. Continue with fluid restriction 1200 mL per day. No evidence of DVT of the bilateral lower extremities duplex scan. Labs and medication were reviewed.. Monitor lytes and vitals. DVT and GI prophylaxis DVT prophylaxis: Subcutaneous heparin GI Prophylaxis: Pepcid PT/OT: Pending Prognosis is guarded
--- NOTE | 2021-05-16 01:12 | P.PN ---
Subjective Progress Note Date: 05/15/21 This is a pleasant 66 years old male with past medical history of Atrial Fibrillation, Heart Failure, COPD, Hyperlipidemia, Osteoarthritis chronic systolic chf, bronchitectoasis/bronchitis, Herring's esophagus, hiatal hernia, anemia, rectus sheath hematoma, L eye glaucoma, chronic low back and L knee pain , does not tolerate statins. His pantry attendant is Dr. Sr for CHF Presents because shortness of breath for 3 days duration. Patient says that is been having dyspnea for the last 3-4 days and was getting worse and helped by his usual nebulizers and inhalers, associated with little occasional off with little phlegm which is crease mesh yellow in color. He has chest pain with coughing appointments/10. Metamucil once parents on both sides felt like sharp like a knife and the case by deep breathing. Also has been complaining from chronic bilateral leg pain and more on his knees. He denies any change in bowel habits, no urinary complaints, no headache, dizziness or numbness and weakness. He has chronic numbness in his both feet and he follow-up with the urologist Dr. Chilango Lara. He quit smoking 3 years ago, occasional alcohol, no illicit drugs. Vitals stable, blood pressure is 97% on room air and patient is afebrile. Labs showing normal WBC 9.6, hemoglobin 12.9, platelet level is normal. INR 0.9, sodium was low at 123, rest of BMP and liver enzymes are unremarkable except for hyponatremia . Troponin is negative. ProBNP is normal 641, urinalysis is negative, urine osmolality is low 153 and 235. EKG showed normal sinus rhythm at [address]-T changes Chest x-ray: No active cardiopulmonary process. Morphine and breathing treatment 05/10/2019 Patient is currently sitting in the chair. Awake alert and oriented x3. On room air. Still having bilateral diffuse rhonchi and coarse breath sounds. Patient is being current on IV Solu-Medrol and duo nebs and Pulmicort. Pulmonary is on board. No complaints of chest pain. Patient does have congestive cough and unable to bring out any sputum. No fever no chills.. Laboratory data showed sodium 126 potassium 3.8 chloride 89 BUN 14 creatinine 0.57 Venous duplex scan of the lower extremities showed negative for DVT. 05/10/21 Patient is sitting in the recliner. Still complains of shortness of breath and exertional dyspnea. Patient had one episode of hemoptysis. Otherwise denies any complaints of chest pain. No worsening shortness of breath. No fever no chills. Patient is being continued IV Solu-Medrol 60 mg every 6 hourly and duo nebs and Pulmicort. Patient is being current Aldactone and was started on Demadex. Laboratory data showed sodium 126 potassium 3.8 and chloride 89 BUN 49 creatinine 0.57. Nephrology and pulmonary is on board. 05/11/2021 Patient is in the medical floor. Still having shortness of breath and exertional dyspnea and diffuse wheezing on examination. Still having cough with blood-tinged sputum. CT chest was ordered. Otherwise no complaints of chest pain. Patient is being continued IV Solu-Medrol 60 mg every 6 hourly and Pulmicort and Perforomist. Patient is also on Aldactone and torsemide. Laboratory data showed WBC 10.85 hemoglobin 11.0 and platelets 335 sodium 128 potassium 5.0 chloride 88 BUN 23.5 and creatinine 0.8 and calcium 8.9. Nephrology and pulmonary is on board. 05/12/2021 Patient is currently sitting on the side of the bed. Awake alert and oriented x3. Breathing status is better today compared to yesterday. No complaints of chest pain. Patient is being continued on IV Solu-Medrol 60 g every 6 hourly, Pulmicort and Perforomist and duo nebs. Also diuretics. CT of the chest done yesterday showed there is some pleural thickening and reticular infiltrate at the lung apices consistent with scarring. No change compared to old exam. Mild pulmonary emphysema. No increased pulmonary density compatible exam. Patient was started on antibiotics of Levaquin. Otherwise patient is also complaining of left knee swelling and pain. Laboratory showed WBC 9.28 hemoglobin 11.1 and platelets 359 sodium 137 potassium 4.5 chloride 87 BUN 23.5 and creatinine 0.8 05/13/2021 Patient is currently sitting on the side of the bed. No complaints of chest pain. Still having shortness of breath and exertional dyspnea. Patient is being continued on IV Solu-Medrol, duo nebs, Pulmicort and Perforomist. Awake alert and oriented x3. Currently on room air. Orthopedic surgery has seen the patient due to bilateral knee pain. Recommends pain management consultation patient is not a surgical candidate at this time. Patient has been afebrile. Does have cough without any sputum production. No chest pain. No headache or dizziness or lightheadedness. PT OT is on board and possible discharge to rehab. 05/14/2021 Patient is currently resting in bed. Awake alert and oriented x3. No complaints of chest pain or worsening shortness breath. Patient is being continued on IV Solu-Medrol, duo nebs, Pulmicort and Perforomist. Otherwise laboratory data showed sodium 130 potassium 4.7 chloride 87 bicarb is 30 BUN 30.1 and creatinine 0.9 and magnesium 2.6 Patient has been afebrile. No headache or dizziness or lightheadedness. No fever no chills. No nausea vomiting abdominal pain or diarrhea tolerating oral diet sputum cultures grew Moraxella and strep pneumonia. Currently on antibiotics -Levaquin. 05/15/2021 Patient is currently sitting on the side of the bed. No complaints of chest pain. Breathing status is much improved. No cough or sputum production. IV Solu-Medrol changed to prednisone 40 mg daily. Continued on duo nebs and Pulm icort and Perforomist. Also on antibiotics in the form of Levaquin. Patient has been afebrile. No nausea vomiting abdominal pain or diarrhea. PT OT and possible discharge to rehab on Sunday. Laboratory data showed sodium 127 potassium 5.1 chloride 85 bicarb is 27.6 BUN 28.8 and creatinine 1.0. WBC 13.1 hemoglobin 12.5 and platelets 409. Current medications reviewed. Objective - Vital Signs Vital signs: Vital Signs Temp 98.6 F 05/15/21 14:00 Pulse 76 05/15/21 15:55 Resp 24 05/15/21 14:00 BP 125/70 05/15/21 14:00 Pulse Ox 90 L 05/15/21 14:00 Intake & Output 05/14/21 05/15/21 05/15/21 18:59 06:59 18:59 Intake Total 180 360 Output Total 301 1600 1700 Balance -121 -1240 -1700 Weight 93.6 kg Intake: Oral 180 360 Output: Urine 301 1600 1700 Other: Voiding Method Toilet Urinal - Exam GENERAL: The patient is alert and oriented x3, not in any acute distress. Obese with BMI 31.4 HEENT: Pupils are round and equally reacting to light. EOMI. No scleral icterus. No conjunctival pallor. Normocephalic, atraumatic. No pharyngeal erythema. No thyromegaly. CARDIOVASCULAR: S1 and S2 present. No murmurs, rubs, or gallops. PULMONARY: exp wheezing and scattered rhonchi.. ABDOMEN: Soft, nontender, nondistended, normoactive bowel sounds. No palpable organomegaly. MUSCULOSKELETAL: No joint swelling or deformity. -EXTREMITIES: No cyanosis, clubbing, bilateral leg edema 1+. Left knee joint effusion NEUROLOGICAL: Gross neurological examination did not reveal any focal deficits. SKIN: No rashes. No petechiae - Labs CBC & Chem 7: 05/15/21 04:33 05/15/21 04:33 Labs: Abnormal Lab Results - Last 24 Hours (Table) 05/14/21 05/15/21 05/15/21 Range/Units 20:45 04:33 04:33 WBC 13.16 H (4.50-10.00) X 10*3/uL RBC 3.79 L (4.40-5.60) X 10*6/uL Hgb 12.5 L (13.0-17.0) g/dL MCV 104.7 H (80.0-97.0) fL MCH 33.0 H (27.0-32.0) pg MCHC 31.5 L (32.0-37.0) g/dL MPV 9.1 L (9.5-12.2) fL Immature Gran # 0.33 H (0.00-0.04) X 10*3/uL Neutrophils # 10.69 H (1.80-7.70) X 10*3/uL Eosinophils # 0 L (0.04-0.35) X 10*3/uL Sodium 127 L (135-145) mmol/L Chloride 85 L (96-109) mmol/L Carbon Dioxide 27.6 H (20.0-27.5) mmol/L BUN 28.3 H (9.0-27.0) mg/dL BUN/Creatinine Ratio 28.59 H (12.00-20.00) Ratio Glucose 120 H (70-110) mg/dL POC Glucose (mg/dL) 138 H (75-99) mg/dL 05/15/21 05/15/21 05/15/21 Range/Units 06:52 11:33 17:06 WBC (4.50-10.00) X 10*3/uL RBC (4.40-5.60) X 10*6/uL Hgb (13.0-17.0) g/dL MCV (80.0-97.0) fL MCH (27.0-32.0) pg MCHC (32.0-37.0) g/dL MPV (9.5-12.2) fL Immature Gran # (0.00-0.04) X 10*3/uL Neutrophils # (1.80-7.70) X 10*3/uL Eosinophils # (0.04-0.35) X 10*3/uL Sodium (135-145) mmol/L Chloride (96-109) mmol/L Carbon Dioxide (20.0-27.5) mmol/L BUN (9.0-27.0) mg/dL BUN/Creatinine Ratio (12.00-20.00) Ratio Glucose (70-110) mg/dL POC Glucose (mg/dL) 111 H 110 H 139 H (75-99) mg/dL Microbiology - Last 24 Hours (Table) 05/12/21 11:38 Gram Stain - Preliminary Sputum Sputum Culture - Preliminary Moraxella(branhamella) catarra Streptococcus pneumoniae Assessment and Plan Assessment: Acute COPD exacerbation Hyponatremia. Sodium 127. likely due to decreased solute intake and hypervolemia vs siadh Left knee joint effusion likely due to osteoarthritis.Seen by orthopedic surgery. No surgical intervention at this time. Pain management service was consulted. Acute on Chronic systolic heart failure, with bilateral feet and leg swelling. no pulmonary congestion Paroxysmal atrial fibrillation, not on anticoagulation Peripheral neuropathy Hyperlipidemia History of osteoarthritis History of bronchiectasis and bronchitis History of Herring's esophagus Plan: This is a pleasant 66 years old male who presents with COPD and hyponatremia Patient is being continued on solumedrol 60 mg every 6 hourly--->prednisone .Continue with DuoNeb's and Pulmicort. started on spironolactone and Demadex was added. Lasix was discontinued.. Continue with fluid restriction 1200 mL per day. No evidence of DVT of the bilateral lower extremities duplex scan. Labs and medication were reviewed.. Monitor lytes and vitals. DVT and GI prophylaxis DVT prophylaxis: Subcutaneous heparin GI Prophylaxis: Pepcid PT/OT: Pending Prognosis is guarded Time with Patient: Greater than 30
[2021-05-16] MEDS: oxyCODONE-APAP 5-325MG 1 EACH TAB PO PRN (05:51)
[2021-05-16 07:02] LABS: Glucose,Whole Blood 106 mg/dL (75-99)
[2021-05-16] MEDS: IPRATROPIUM-ALBUTEROL 3 ML NEB INHALATION SCH ×4 (08:58→21:56)
[2021-05-16] MEDS: BUDESONIDE 1 MG/2 ML NEBU INHALATION SCH ×2 (08:58→21:56)
[2021-05-16] MEDS: FORMOTEROL FUMARATE 20 MCG/2 ML NEBU INHALATION SCH ×2 (08:58→21:56)
[2021-05-16 09:04] LABS: HCT 41.1 % (39.6-50.0); HGB 13.4 g/dL (13.0-17.0); MCH 33.8 pg (27.0-32.0); MCHC 32.6 g/dL (32.0-37.0); MCV 103.5 fL (80.0-97.0); Mean Platelet Volume 9.1 fL (9.5-12.2); NRBC Per 100 WBC 0 /100 WBCS (0.0-0.0); Platelet Count 435 X 10*3/uL (140-440); RBC 3.97 X 10*6/uL (4.40-5.60); RDW 13.2 % (11.5-14.5); WBC 16.39 X 10*3/uL (4.50-10.00)
[2021-05-16] MEDS: INSULIN ASPART (NovoLOG) 100 UNIT/ML VIAL SQ SCH ×4 (09:12→21:02)
[2021-05-16 09:22] LABS: Anion Gap 12.9 mmol/L (10.00-18.00); BUN/Creat Ratio 31.77 Ratio (12.00-20.00); Blood Urea Nitrogen 41.3 mg/dL (9.0-27.0); Calcium 8.8 mg/dL (8.7-10.3); Carbon Dioxide 31.1 mmol/L (20.0-27.5); Non-African American GFR(CKD) 56.1 (60.0-200.0); Potassium 4.3 mmol/L (3.5-5.5)
[2021-05-16 09:37] LABS: Basophils # (A) 0.05 X 10*3/uL (0.00-0.10); Basophils % (A) 0.3 %; Eosinophils % (A) 0.6 %; Immature Grans, Automated 3.8 %; Lymphocytes # (A) 3.32 X 10*3/uL (0.90-5.00); Lymphocytes % (A) 20.3 %; Monocytes % (A) 12.8 %; Neutrophils # (A) 10.19 X 10*3/uL (1.80-7.70); Neutrophils % (A) 62.2 %
[2021-05-16] MEDS: METOPROLOL SUCCINATE (ER) 25 MG TAB.ER.24H PO SCH (09:59)
[2021-05-16] MEDS: SPIRONOLACTONE 25 MG TAB PO SCH (09:59)
[2021-05-16] MEDS: VIT A,C & E-LUTEIN-MINERALS 1 EACH TAB PO SCH ×2 (09:59→21:02)
[2021-05-16] MEDS: DULoxetine HCL 30 MG CAPSULE.DR PO SCH (09:59)
[2021-05-16] MEDS: predniSONE 20 MG TAB PO SCH (10:00)
[2021-05-16] MEDS: TORSEMIDE 20 MG TAB PO SCH ×2 (10:00→21:02)
[2021-05-16] MEDS: FAMOTIDINE 20 MG TAB PO SCH ×2 (10:00→21:02)
[2021-05-16] MEDS: HEPARIN SODIUM,PORCINE/PF 5,000 UNIT/0.5 ML SYRINGE SQ SCH ×2 (10:00→21:02)
[2021-05-16] MEDS: MULTIVITAMINS, THERA 1 EACH TAB PO SCH (10:00)
[2021-05-16] MEDS: LEVOFLOXACIN 750 MG TAB PO SCH (10:01)
[2021-05-16 11:22] LABS: Glucose,Whole Blood 91 mg/dL (75-99)
--- NOTE | 2021-05-16 11:33 | P.PN ---
Subjective Patient is seen for follow-up for hypervolemic hyponatremia. He is maintained on torsemide. Serum sodium level has been improving. He did receive a dose of Samsca. Sodium was 128 today Objective - Vital Signs Vital signs: Vital Signs Temp 98.6 F 05/16/21 08:00 Pulse 78 05/16/21 09:09 Resp 17 05/16/21 08:00 BP 98/59 05/16/21 08:00 Pulse Ox 99 05/16/21 08:00 Intake & Output 05/15/21 05/16/21 05/16/21 18:59 06:59 18:59 Output Total 1700 1500 Balance -1700 -1500 Weight 93.8 kg Output: Urine 1700 1500 Other: Voiding Method Toilet Toilet Urinal Urinal # Bowel Movements 0 - Exam Patient is awake comfortable. Not in any acute distress. Examination of the heart S1 and S2 Examination lungs bilateral breath sounds are heard Abdomen is soft nontender obese Examination lower extremity shows edema 2+ bilaterally PAPER FOLDER exam grossly intact - Labs CBC & Chem 7: 05/16/21 05:34 05/16/21 05:34 Labs: Abnormal Lab Results - Last 24 Hours (Table) 05/15/21 05/15/21 05/15/21 Range/Units 04:33 04:33 11:33 WBC 13.16 H (4.50-10.00) X 10*3/uL RBC 3.79 L (4.40-5.60) X 10*6/uL Hgb 12.5 L (13.0-17.0) g/dL MCV 104.7 H (80.0-97.0) fL MCH 33.0 H (27.0-32.0) pg MCHC 31.5 L (32.0-37.0) g/dL MPV 9.1 L (9.5-12.2) fL Immature Gran # 0.33 H (0.00-0.04) X 10*3/uL Neutrophils # 10.69 H (1.80-7.70) X 10*3/uL Monocytes # (0.20-1.00) X 10*3/uL Eosinophils # 0 L (0.04-0.35) X 10*3/uL Sodium 127 L (135-145) mmol/L Chloride 85 L (96-109) mmol/L Carbon Dioxide 27.6 H (20.0-27.5) mmol/L BUN 28.3 H (9.0-27.0) mg/dL Est GFR (CKD-EPI)NonAf (60.0-200.0) BUN/Creatinine Ratio 28.59 H (12.00-20.00) Ratio Glucose 120 H (70-110) mg/dL POC Glucose (mg/dL) 110 H (75-99) mg/dL 05/15/21 05/15/21 05/16/21 Range/Units 17:06 20:20 05:34 WBC 16.39 H (4.50-10.00) X 10*3/uL RBC 3.97 L (4.40-5.60) X 10*6/uL Hgb (13.0-17.0) g/dL MCV 103.5 H (80.0-97.0) fL MCH 33.8 H (27.0-32.0) pg MCHC (32.0-37.0) g/dL MPV 9.1 L (9.5-12.2) fL Immature Gran # 0.63 H (0.00-0.04) X 10*3/uL Neutrophils # 10.19 H (1.80-7.70) X 10*3/uL Monocytes # 2.10 H (0.20-1.00) X 10*3/uL Eosinophils # (0.04-0.35) X 10*3/uL Sodium (135-145) mmol/L Chloride (96-109) mmol/L Carbon Dioxide (20.0-27.5) mmol/L BUN (9.0-27.0) mg/dL Est GFR (CKD-EPI)NonAf (60.0-200.0) BUN/Creatinine Ratio (12.00-20.00) Ratio Glucose (70-110) mg/dL POC Glucose (mg/dL) 139 H 102 H (75-99) mg/dL 05/16/21 05/16/21 Range/Units 05:34 07:00 WBC (4.50-10.00) X 10*3/uL RBC (4.40-5.60) X 10*6/uL Hgb (13.0-17.0) g/dL MCV (80.0-97.0) fL MCH (27.0-32.0) pg MCHC (32.0-37.0) g/dL MPV (9.5-12.2) fL Immature Gran # (0.00-0.04) X 10*3/uL Neutrophils # (1.80-7.70) X 10*3/uL Monocytes # (0.20-1.00) X 10*3/uL Eosinophils # (0.04-0.35) X 10*3/uL Sodium 128 L (135-145) mmol/L Chloride 84 L (96-109) mmol/L Carbon Dioxide 31.1 H (20.0-27.5) mmol/L BUN 41.3 H (9.0-27.0) mg/dL Est GFR (CKD-EPI)NonAf 56.1 L (60.0-200.0) BUN/Creatinine Ratio 31.77 H (12.00-20.00) Ratio Glucose (70-110) mg/dL POC Glucose (mg/dL) 106 H (75-99) mg/dL Microbiology - Last 24 Hours (Table) 05/12/21 11:38 Gram Stain - Preliminary Sputum Sputum Culture - Preliminary Moraxella(branhamella) catarra Streptococcus pneumoniae Assessment and Plan Assessment: 1. Hyponatremia, hypERvolemic, status post diuresis and one dose of Samsca 2. CHF exacerbation previous echo in July 2020 showed ejection fraction 55-60%. 3. Acute COPD exacerbation 4. History of Herring's esophagus 5. History of A. fib currently in normal sinus rhythm Plan: Okay to discharge with increased dose of Demadex 1 dose of Samsca prior to discharge Repeat labs in 1-2 days post discharge Continue with fluid restriction
[2021-05-16] MEDS ORDERED: TOLVAPTAN 15 MG 1/2 TABLET PO ONE (12:00)
--- NOTE | 2021-05-16 14:09 | P.DS ---
Providers Date of admission: 05/07/21 21:14 Attending physician: Luan Page MD Consults: 05/07/21 21:15 Consult Physician Urgent Consulting Provider: Edmond Cr Consult Reason/Comments: copd exacerbation Do you want consulting provider notified?: Yes Consult Physician Urgent Consulting Provider: Kaylyn Ogden Consult Reason/Comments: hyponatremia Do you want consulting provider notified?: Yes Primary care physician: Bia Anderson Hospital Course: Final Diagnosis Acute COPD exacerbation Hyponatremia, sodium level 128, this could be due to decreased solute intake and hypervolemia vs. Siadh Left knee joint effusion likely due to osteoarthritis, not a surgical candidate at this time, pain management.orthopedics evaluation this admission, follow up with orthopedics outpatient. Acute on chronic systolic heart failure with bilateral peripheral edema, no pulmonary congestion Paroxysmal atrial fibrillation not on anticoagulation Peripheral neuropathy Hypokalemia History of breast arthritis History of bronchiectasis and bronchitis History of Herring's esophagus Discharge disposition Patient is stable for discharge to rehab today. Follow up with nephrology, pulmonary, primary care. Also follow up with orthopedics as well as pain management. He was started on percocet 5 Q6h for pain from pain management services. BMP/CBC in 2 days. Hospital Course This is a pleasant 66-year-old male who follows with Dr. Anderson in the primary care setting. Chronic medical conditions include paroxysmal atrial fibrillation, chronic systolic heart failure, COPD, hyperlipidemia, osteoarthrit is, bronchiectasis, bronchitis, Herring's esophagus, had a hernia, anemia, rectus sheath hematoma, left eye glaucoma, chronic low back pain left knee pain. Patient is also a former smoker who quit in 2019. Patient does follow Dr. Holly for cardiology. He does not tolerate statins. Patient admitted to the hospital with complaints of shortness of breath for 3-4 day duration which was getting worse and was not helped by his usual nebulizers and inhalers. Patient did have cough with phlegm which is yellowish in color. Patient also complained of chest pain with coughing. Patient is also complaining of chronic bilateral leg pain as well as left knee pain which he states he needs a total knee replacement. Patient does see Dr. Chilango Lara with neurology for chronic numbness in his feet. Patient was given morphine and breathing treatment in the . patient was seen in consult by nephrology, pulmonary, orthopedic services as well as pain management. On admission labs showed a white count 9.6, hemoglobin 12.9, platelet count normal, INR 0.9, sodium low at 123 with the rest of mobile palpable liver enzymes unremarkable. Troponin negative, proBNP 641 which is normal limits for age, urinalysis is negative, urine osmolality is low 153 and 235. EKG on admission shows normal sinus rhythm at [address] or T-wave changes. Chest x-ray shows no active cardiopulmonary process. Additional diagnostics this admission include: Venous Doppler negative for DVT bilateral Left foot x-ray shows diffuse osteopenia with no other significant abnormality. Left knee x-ray shows osteoarthritis with markedly progression from exam one year prior. Additional findings and report. Chest CT shows some pleural thickening and reticular infiltrate at the lung apices consistent with scarring. Mild pulmonary emphysema. Patient was given IV solumedrol for an acute COPD exacerbation this admission and was changed to a prednisone burst and taper for discharge. Also was started on oral levofloxacin for a total of 7 days of treatment. He will currently need 2 more days after discharge of levofloxacin and then can discontinue. Patient was switched from oral Lasix to Demadex and Aldactone. Patient was evaluated by orthopedics who felt he was not a surgical candidate at this time for left total knee replacement and he was than seen in consult by pain management who started patient on precocet 5 mg every 6 hrs as needed and will follow up in the office after discharge with both orthopedics and pain management. Patient will discharge on duonebs, perforomist, and symbicort. Continue on all other home medications. Patient also received a one time dose of samsca prior to discharge for low sodium and will follow up with nephrology in the office with repeat sodium level in 2 days. 05/16/2021 Patient evaluated today sitting up in his wheelchair. States he is waiting to be discharged today to rehab. States breathing is improved today , he was transitioned yesterday off of IV steroids and started on a steroid burst and taper. Nephrology is cleared patient for discharge today after receiving a dose of Samsca and will follow up with labs in 2 days as mentioned above. His main complaint is left knee pain, he continues on percocet as needed and states he is getting pain relief with medication. Patient can also take colace daily to avoid constipation from narcotic use. White blood cell count was normal on admission however patient was started on IV solumedrol to 60 mg every 6 hours white count is 16.3 today which is increased slightly from admission, this could be steroid effect and will repeat in 2 days. Otherwise, hemoglobin is stable, platelet count stable, sodium 128 today, chloride 84, CO2 31, BUN 41, creatinine 1.3 glucose in the 100's. Vitals today; patient is afebrile, heart rate 74, blood pressure 150/54, 98% on room air. S1 and S2 auscultated, lungs have adequate aeration, patients does sound coarse with congested cough, however, there are no crackles noted or wheezing. Patient has remained in a negative fluid balance of 1.5 L in the last 24 hours. He denies chest pain, nausea, vomiting, or diarrhea. Peripheral edema has improved. Plan for discharge to rehab today. Please see medication reconciliation for a list of current medication. Thank you for allowing us to participate in the care of this patient. Patient Condition at Discharge: Stable Plan - Discharge Summary Discharge Rx Participant: No New Discharge Prescriptions: New Levofloxacin [Levaquin] 750 mg PO DAILY 2 Days #2 tab Famotidine [Pepcid] 20 mg PO BID tab predniSONE 0 mg PO DIRECTED #22 tab Budesonide [Pulmicort] 1 mg INHALATION RT-BID ml Torsemide [Demadex] 20 mg PO BID tab Ipratropium-Albuterol Nebulize [Duoneb 0.5 mg-3 mg/3 ml Soln] 3 ml INHALATION RT-QID ml INSULIN ASPART (NovoLOG) [NovoLOG (formulary)] 0 unit SQ ACHS ml oxyCODONE-APAP 5-325MG [Percocet 5-325 mg] 1 each PO Q6HR PRN #4 tab PRN Reason: Pain Formoterol Fumarate [Perforomist] 20 mcg INHALATION RT-BID ml Continue Latanoprost [Xalatan 0.005%] 1 drop LEFT EYE HS Vit C/E/Zn/Coppr/Lutein/Zeaxan [Preservision Areds 2 Softgel] 1 tab PO BID Spironolactone [Aldactone] 25 mg PO DAILY 30 Days #30 tab Albuterol Nebulized [Ventolin Nebulized] 2.5 mg INHALATION RT-QID PRN PRN Reason: Shortness Of Breath Metoprolol Succinate (ER) [Toprol XL] 25 mg PO DAILY Acetaminophen [Tylenol] 500 mg PO QID PRN PRN Reason: Pain Multivit-Min/Folic/Vit K/Lycop [Men's Multivitamin Tablet] 1 tab PO DAILY Albuterol Sulfate [Proventil Hfa] 2 puff INHALATION RT-QID PRN PRN Reason: Shortness Of Breath Budesonide/Formoterol Fumarate [Symbicort 80-4.5 Mcg Inhaler] 2 puff INHALATION RT-BID Ibuprofen [Motrin] 800 mg PO TID PRN PRN Reason: Pain Rosuvastatin Calcium [Crestor] 10 mg PO HS DULoxetine HCL [Cymbalta] 30 mg PO DAILY Discontinued Furosemide [Lasix] 40 mg PO DAILY 30 Days #30 tab Discharge Medication List Latanoprost [Xalatan 0.005%] 1 drop LEFT EYE HS 10/31/17 [History] Vit C/E/Zn/Coppr/Lutein/Zeaxan [Preservision Areds 2 Softgel] 1 tab PO BID 08/22/19 [History] Spironolactone [Aldactone] 25 mg PO DAILY 30 Days #30 tab 09/12/19 [Rx] Albuterol Nebulized [Ventolin Nebulized] 2.5 mg INHALATION RT-QID PRN 08/13/20 [History] Acetaminophen [Tylenol] 500 mg PO QID PRN 02/09/21 [History] Metoprolol Succinate (ER) [Toprol XL] 25 mg PO DAILY 02/09/21 [History] Multivit-Min/Folic/Vit K/Lycop [Men's Multivitamin Tablet] 1 tab PO DAILY 02/09/21 [History] Albuterol Sulfate [Proventil Hfa] 2 puff INHALATION RT-QID PRN 03/06/21 [History] Budesonide/Formoterol Fumarate [Symbicort 80-4.5 Mcg Inhaler] 2 puff INHALATION RT-BID 03/06/21 [History] Ibuprofen [Motrin] 800 mg PO TID PRN 03/06/21 [History] Rosuvastatin Calcium [Crestor] 10 mg PO HS 03/06/21 [History] DULoxetine HCL [Cymbalta] 30 mg PO DAILY 05/07/21 [History] Budesonide [Pulmicort] 1 mg INHALATION RT-BID ml 05/16/21 [Rx] Famotidine [Pepcid] 20 mg PO BID tab 05/16/21 [Rx] Formoterol Fumarate [Perforomist] 20 mcg INHALATION RT-BID ml 05/16/21 [Rx] INSULIN ASPART (NovoLOG) [NovoLOG (formulary)] 0 unit SQ ACHS ml 05/16/21 [Rx] Ipratropium-Albuterol Nebulize [Duoneb 0.5 mg-3 mg/3 ml Soln] 3 ml INHALATION RT-QID ml 05/16/21 [Rx] Levofloxacin [Levaquin] 750 mg PO DAILY 2 Days #2 tab 05/16/21 [Rx] Torsemide [Demadex] 20 mg PO BID tab 05/16/21 [Rx] oxyCODONE-APAP 5-325MG [Percocet 5-325 mg] 1 each PO Q6HR PRN #4 tab 05/16/21 [Rx] predniSONE 0 mg PO DIRECTED #22 tab 05/16/21 [Rx] Follow up Appointment(s)/Referral(s): Kaylyn Ogden MD [STAFF PHYSICIAN] - 1 Week Bia Anderson MD [Primary Care Provider] - 1-2 days [facility] [place], [NON-STAFF] - As Needed Jacques Mitchell MD [STAFF PHYSICIAN] - 1 Week Dania Page MD [STAFF PHYSICIAN] - 2 Weeks Viky Clemons PAC [PHYSICIAN TAX DIRECTOR] - 1 Week (Follow up regarding left knee ) Ambulatory/Diagnostic Orders: Basic Metabolic Panel [LAB.AMB] Time Frame: 2 Days, Location: None Selected Complete Blood Count w/diff [LAB.AMB] Time Frame: 2 Days, Location: None Selected Discharge Disposition: TRANSFER TO SNF/ECF
--- NOTE | 2021-05-16 15:41 | P.PN ---
Subjective Progress Note Date: 05/16/21 Principal diagnosis: Shortness of breath and wheezing This is a pleasant 66-year-old male patient with a known history of atrial fibrillation, congestive heart failure, Herring's esophagus, chronic obstructive pulmonary disease in a former smoker of 45 years quit in 2019, COVID-19 infection received monoclonal antibodies, not vaccinated and was hospitalized back in February 2021. He presented here to the emergency room yesterday with complaints of breath, cough congestion greenish yellow sputum. He is admitted for COPD exacerbation. Chest x-ray revealed no acute pulmonary process. Normal heart size. White count 9.6. Hemoglobin 12.9. MCV 104. Sodium 128. Potassium 4.1. BUN 13. Creatinine 0.66. Urinalysis clear. He is seen today in consultation on the regular medical floor. He is currently resting comfortably in bed. Awake and alert in no acute distress. He is maintaining good O2 saturations in the 90s on room air. He's been afebrile. Hemodynamically stable. EKG reveals normal sinus rhythm with occasional PACs. X-ray of the left foot reveals diffuse osteopenia but no acute fracture. He's been initiated on DuoNeb inhalations, Pulmicort and Perforomist inhalations, IV Solu-Medrol. Heparin for DVT prophylaxis. On today's evaluation of 05/09/2021, the patient is feeling well and he seems to be slightly less short of breath compared to yesterday. He still bronchospastic and wheezy. His bringing up some minimal amount of mucus. He remains on a combination of DuoNeb nebulized treatments around the clock, and he is also on IV Solu Medrol 60 mg every 6 hours. At the same time, the patient was found to have hyponatremia. Sodium level was at 126. The patient was given a dose of Lasix today by nephrology and the patient was also given a dose of Semsca. Nephrology is on the case regarding the hyponatremia. Noted the initial sodium level was at 123. White cell count is at 9.6 with a hemoglobin of 12.6. The Doppler of the lower extremity of been negative and the patient has no acute cardio pulmonary abnormalities on the chest x-ray. On 05/10/2021 patient seen in follow-up on medical surgical floor. He is on room air, sitting up in the recliner, does not appear to be in any acute distress, he states he had one episode of hemoptysis and coughed up about 2 tablespoons of blood tinged phlegm. Still bronchospastic on physical exam. Vital signs are stable, room air pulse ox is 99%, his been afebrile, hemodynamically has been stable, denies any chest discomfort. He remains on IV steroids with Solu-Medrol 60 mg every 6 hours, he is on Pulmicort, Perforomist, he is on DuoNeb. He continues on his home dose Aldactone, he was started on Demadex, and he was given a dose of told wrapped in by nephrology. Serum sodium is currently improved and is up to 135 on today's labs, BUN is 18.3 and creatinine 0.7 On 05/16/2021 patient seen in follow-up on medical surgical floor. He is breathing comfortably, has had no acute events overnight, vital signs are stable, room air pulse ox is 99%. Lung sounds are clear, no acute events overnight. His steroids have been transitioned to oral prednisone, he remains on nebulized bronchodilators, he is on empiric antibiotics in the form of Levaquin. Sputum culture showed Moraxella catarrhalis, and Streptococcus pneumonia. His white blood cell count today 16.3, hemoglobin is 13.4, sodium is 128, potassium is 4.3, chloride is 84, BUN is 41, creatinine is 1.3. Objective - Vital Signs Vital signs: Vital Signs Temp 98.5 F 05/16/21 13:58 Pulse 74 05/16/21 13:58 Resp 17 05/16/21 13:58 BP 150/54 05/16/21 13:58 Pulse Ox 98 05/16/21 13:58 Intake & Output 05/15/21 05/16/21 05/16/21 18:59 06:59 18:59 Output Total 1700 1500 Balance -1700 -1500 Weight 93.8 kg Output: Urine 1700 1500 Other: Voiding Method Toilet Toilet Urinal Urinal # Bowel Movements 0 - Exam GENERAL EXAM: Alert, very pleasant 66-year-old white male, sitting up in the recliner, on room air, with occasional cough, congestion, and wheezing c omfortable in no apparent distress. HEAD: Normocephalic/atraumatic. EYES: Normal reaction of pupils, equal size. Conjunctiva pink, sclera white. NOSE: Clear with pink turbinates. THROAT: No erythema or exudates. NECK: No masses, no JVD, no thyroid enlargement, no adenopathy. CHEST: No chest wall deformity. Symmetrical expansion. LUNGS: Equal air entry with diffuse wheezes CVS: Regular rate and rhythm, normal S1 and S2, no gallops, no murmurs, no rubs ABDOMEN: Soft, nontender. No hepatosplenomegaly, normal bowel sounds, no guarding or rigidity. EXTREMITIES: No clubbing, no edema, no cyanosis, 2+ pulses and upper and lower extremities. MUSCULOSKELETAL: Muscle strength and tone normal. SPINE: No scoliosis or deformity SKIN: No rashes CENTRAL NERVOUS SYSTEM: Alert and oriented -3. No focal deficits, tone is normal in all 4 extremities. PSYCHIATRIC: Alert and oriented -3. Appropriate affect. Intact judgment and insight. - Labs CBC & Chem 7: 05/16/21 05:34 05/16/21 05:34 Labs: Abnormal Lab Results - Last 24 Hours (Table) 05/15/21 05/15/21 05/16/21 Range/Units 17:06 20:20 05:34 WBC 16.39 H (4.50-10.00) X 10*3/uL RBC 3.97 L (4.40-5.60) X 10*6/uL MCV 103.5 H (80.0-97.0) fL MCH 33.8 H (27.0-32.0) pg MPV 9.1 L (9.5-12.2) fL Immature Gran # 0.63 H (0.00-0.04) X 10*3/uL Neutrophils # 10.19 H (1.80-7.70) X 10*3/uL Monocytes # 2.10 H (0.20-1.00) X 10*3/uL Sodium (135-145) mmol/L Chloride (96-109) mmol/L Carbon Dioxide (20.0-27.5) mmol/L BUN (9.0-27.0) mg/dL Est GFR (CKD-EPI)NonAf (60.0-200.0) BUN/Creatinine Ratio (12.00-20.00) Ratio POC Glucose (mg/dL) 139 H 102 H (75-99) mg/dL 05/16/21 05/16/21 Range/Units 05:34 07:00 WBC (4.50-10.00) X 10*3/uL RBC (4.40-5.60) X 10*6/uL MCV (80.0-97.0) fL MCH (27.0-32.0) pg MPV (9.5-12.2) fL Immature Gran # (0.00-0.04) X 10*3/uL Neutrophils # (1.80-7.70) X 10*3/uL Monocytes # (0.20-1.00) X 10*3/uL Sodium 128 L (135-145) mmol/L Chloride 84 L (96-109) mmol/L Carbon Dioxide 31.1 H (20.0-27.5) mmol/L BUN 41.3 H (9.0-27.0) mg/dL Est GFR (CKD-EPI)NonAf 56.1 L (60.0-200.0) BUN/Creatinine Ratio 31.77 H (12.00-20.00) Ratio POC Glucose (mg/dL) 106 H (75-99) mg/dL Microbiology - Last 24 Hours (Table) 05/12/21 11:38 Gram Stain - Final Sputum Sputum Culture - Final Moraxella(branhamella) catarra Streptococcus pneumoniae Assessment and Plan Plan: Assessment: #1. Acute exacerbation of chronic obstructive pulmonary disease with no evidence of acute pneumonia #2. COPD with upper lobe predominance and biapical scarring #3. Extensive history of nicotine dependence, patient carries a [id number] smoking history and quit in 2019 #4. Hyponatremia, improved, serum sodium is up to 135 on today's lab #5. Left foot pain, no evidence of fracture on the x-ray, Dopplers bilateral lower extremities were negative for DVT #6. History of atrial fibrillation, paroxysmal, currently in sinus mechanism #7. History of CHF with systolic dysfunction #8. History of Herring's esophagus #9. Glaucoma #10. Macular degeneration #11. Osteoarthritis Plan: Continue IV steroids, continue bronchodilators Patient had episode of hemoptysis, will continue monitoring for any worsening Vital signs are stable, patient is on room air Today's labs have been noted, serum sodium is significantly improved We'll continue to follow his clinical course Not quite ready for discharge I have personally seen and examined the patient, performed the documentation and the assessment and plan as written. Number of minutes spent on the visit: [10] Time with Patient: Less than 30
[2021-05-16 16:42] LABS: Glucose,Whole Blood 132 mg/dL (75-99)
[2021-05-16 20:30] LABS: Glucose,Whole Blood 130 mg/dL (75-99)
[2021-05-16] MEDS: LATANOPROST 0.005% OPHTH DROPS 2.5 ML BTL LEFT EYE SCH (21:02)
[2021-05-16] MEDS: ATORVASTATIN 20 MG TAB PO SCH (21:02)
[2021-05-17] MEDS: oxyCODONE-APAP 5-325MG 1 EACH TAB PO PRN (00:23)
[2021-05-17 06:47] LABS: Glucose,Whole Blood 104 mg/dL (75-99)
[2021-05-17] MEDS: INSULIN ASPART (NovoLOG) 100 UNIT/ML VIAL SQ SCH (06:54)
[2021-05-17] MEDS: BUDESONIDE 1 MG/2 ML NEBU INHALATION SCH (07:55)
[2021-05-17] MEDS: IPRATROPIUM-ALBUTEROL 3 ML NEB INHALATION SCH ×2 (07:55→12:43)
[2021-05-17] MEDS: FORMOTEROL FUMARATE 20 MCG/2 ML NEBU INHALATION SCH (07:56)
[2021-05-17 07:58] VITALS: BP 122/61; TEMP 98.1
[2021-05-17 08:05] VITALS: RESP 18
[2021-05-17 08:16] VITALS: PULSE 74
[2021-05-17] MEDS: predniSONE 20 MG TAB PO SCH (08:44)
[2021-05-17] MEDS: TORSEMIDE 20 MG TAB PO SCH (08:44)
[2021-05-17] MEDS: LEVOFLOXACIN 750 MG TAB PO SCH (08:45)
[2021-05-17] MEDS: SPIRONOLACTONE 25 MG TAB PO SCH (08:45)
[2021-05-17] MEDS: MULTIVITAMINS, THERA 1 EACH TAB PO SCH (08:45)
[2021-05-17] MEDS: VIT A,C & E-LUTEIN-MINERALS 1 EACH TAB PO SCH (08:45)
[2021-05-17] MEDS: DULoxetine HCL 30 MG CAPSULE.DR PO SCH (08:45)
[2021-05-17] MEDS: FAMOTIDINE 20 MG TAB PO SCH (08:45)
[2021-05-17] MEDS: HEPARIN SODIUM,PORCINE/PF 5,000 UNIT/0.5 ML SYRINGE SQ SCH (08:45)
[2021-05-17] MEDS: METOPROLOL SUCCINATE (ER) 25 MG TAB.ER.24H PO SCH (08:45)
[2021-05-17 10:42] LABS: HCT 43.1 % (39.0-53.0); HGB 14.1 gm/dL (13.0-17.5); MCH 34.2 pg (25.0-35.0); MCHC 32.7 g/dL (31.0-37.0); MCV 104.6 fL (80.0-100.0); Macrocytosis Slight; Mean Platelet Volume 6.9; Platelet Count 463 k/uL (150-450); RBC 4.12 m/uL (4.30-5.90); RDW 13.2 % (11.5-15.5); WBC 13.6 k/uL (3.8-10.6)
[2021-05-17 11:05] LABS: African American GFR (CKD) 63 (>60 ml/min/1.73 sqM); Anion Gap 8 mmol/L; Blood Urea Nitrogen 40 mg/dL (9-20); Calcium 8.7 mg/dL (8.4-10.2); Carbon Dioxide 38 mmol/L (22-30); Chloride 81 mmol/L (98-107); Glucose 106 mg/dL (74-99); Non-African American GFR(CKD) 54 (>60 ml/min/1.73 sqM); Potassium 4.2 mmol/L (3.5-5.1); Sodium 127 mmol/L (137-145)
[2021-05-17 11:10] LABS: Glucose,Whole Blood 112 mg/dL (75-99)
--- NOTE | 2021-05-17 11:39 | P.PN ---
Subjective Patient is seen for follow-up for hypervolemic hyponatremia. He is maintained on torsemide. Serum sodium level has been improving. He did receive a dose of Samsca. Sodium was 128 yesterday and received a dose of Samsca Patient is maintained on Demadex 20 mg twice a day Sodium today is 127. Patient is scheduled for discharge. Objective - Vital Signs Vital signs: Vital Signs Temp 98.1 F 05/17/21 07:58 Pulse 74 05/17/21 08:16 Resp 18 05/17/21 08:16 BP 122/61 05/17/21 07:58 Pulse Ox 100 05/17/21 07:58 Intake & Output 05/16/21 05/17/21 05/17/21 18:59 06:59 18:59 Intake Total 450 Output Total 800 1300 150 Balance -800 -850 -150 Intake: Oral 450 Output: Urine 800 1300 150 Other: Voiding Method Toilet Toilet Urinal Urinal # Voids 4 # Bowel Movements 0 - Exam Patient is awake comfortable. Not in any acute distress. Examination of the heart S1 and S2 Examination lungs bilateral breath sounds are heard Abdomen is soft nontender obese Examination lower extremity shows edema 2+ bilaterally HOTEL ASSISTANT GENERAL MANAGER exam grossly intact - Labs CBC & Chem 7: 05/17/21 10:28 05/17/21 10:28 Labs: Abnormal Lab Results - Last 24 Hours (Table) 05/16/21 05/16/21 05/17/21 Range/Units 16:37 20:28 06:45 WBC (3.8-10.6) k/uL RBC (4.30-5.90) m/uL MCV (80.0-100.0) fL Plt Count (150-450) k/uL Sodium (137-145) mmol/L Chloride (98-107) mmol/L Carbon Dioxide (22-30) mmol/L BUN (9-20) mg/dL Creatinine (0.66-1.25) mg/dL Glucose (74-99) mg/dL POC Glucose (mg/dL) 132 H 130 H 104 H (75-99) mg/dL 05/17/21 05/17/21 05/17/21 Range/Units 10:28 10:28 11:08 WBC 13.6 H (3.8-10.6) k/uL RBC 4.12 L (4.30-5.90) m/uL MCV 104.6 H (80.0-100.0) fL Plt Count 463 H (150-450) k/uL Sodium 127 L (137-145) mmol/L Chloride 81 L (98-107) mmol/L Carbon Dioxide 38 H (22-30) mmol/L BUN 40 H (9-20) mg/dL Creatinine 1.34 H (0.66-1.25) mg/dL Glucose 106 H (74-99) mg/dL POC Glucose (mg/dL) 112 H (75-99) mg/dL Microbiology - Last 24 Hours (Table) 05/12/21 11:38 Gram Stain - Final Sputum Sputum Culture - Final Moraxella(branhamella) catarra Streptococcus pneumoniae Assessment and Plan Assessment: 1. Hyponatremia, hypERvolemic, status post diuresis and Samsca. Sodium staying 127-128. Dose of Demadex increased to 20 mg twice a day 2. CHF exacerbation previous echo in July 2020 showed ejection fraction 55-60%. 3. Acute COPD exacerbation 4. History of Herring's esophagus 5. History of A. fib currently in normal sinus rhythm Plan: Repeat Samsca 15 mg by mouth today Continue with current dose of Demadex Repeat labs in 1-2 days post discharge. Follow-up as outpatient in 1-2 weeks for hyponatremia.
[2021-05-17] MEDS ORDERED: TOLVAPTAN 15 MG 1/2 TABLET PO ONE (12:00)
--- NOTE | 2021-05-17 14:49 | P.DS ---
Providers Date of admission: 05/07/21 21:14 Attending physician: Luan Page MD Consults: 05/07/21 21:15 Consult Physician Urgent Consulting Provider: Edmond Cr Consult Reason/Comments: copd exacerbation Do you want consulting provider notified?: Yes Consult Physician Urgent Consulting Provider: Kaylyn Ogden Consult Reason/Comments: hyponatremia Do you want consulting provider notified?: Yes Primary care physician: Bia Anderson Hospital Course: Final Diagnosis Acute COPD exacerbation Hyponatremia, sodium level 128, this could be due to decreased solute intake and hypervolemia vs. Siadh Left knee joint effusion likely due to osteoarthritis, not a surgical candidate at this time, pain management.orthopedics evaluation this admission, follow up with orthopedics outpatient. Acute on chronic systolic heart failure with bilateral peripheral edema, no pulmonary congestion Paroxysmal atrial fibrillation not on anticoagulation Peripheral neuropathy Hypokalemia History of breast arthritis History of bronchiectasis and bronchitis History of Herring's esophagus Discharge disposition Patient is stable for discharge to rehab today. Follow up with nephrology, pulmonary, primary care. Also follow up with orthopedics as well as pain management. He was started on percocet 5 Q6h for pain from pain management services. BMP/CBC in 2 days. Hospital Course This is a pleasant 66-year-old male who follows with Dr. Anderson in the primary care setting. Chronic medical conditions include paroxysmal atrial fibrillation, chronic systolic heart failure, COPD, hyperlipidemia, osteoarthrit is, bronchiectasis, bronchitis, Herring's esophagus, had a hernia, anemia, rectus sheath hematoma, left eye glaucoma, chronic low back pain left knee pain. Patient is also a former smoker who quit in 2019. Patient does follow Dr. Holly for cardiology. He does not tolerate statins. Patient admitted to the hospital with complaints of shortness of breath for 3-4 day duration which was getting worse and was not helped by his usual nebulizers and inhalers. Patient did have cough with phlegm which is yellowish in color. Patient also complained of chest pain with coughing. Patient is also complaining of chronic bilateral leg pain as well as left knee pain which he states he needs a total knee replacement. Patient does see Dr. Chilango Lara with neurology for chronic numbness in his feet. Patient was given morphine and breathing treatment in the . patient was seen in consult by nephrology, pulmonary, orthopedic services as well as pain management. On admission labs showed a white count 9.6, hemoglobin 12.9, platelet count normal, INR 0.9, sodium low at 123 with the rest of mobile palpable liver enzymes unremarkable. Troponin negative, proBNP 641 which is normal limits for age, urinalysis is negative, urine osmolality is low 153 and 235. EKG on admission shows normal sinus rhythm at [address] or T-wave changes. Chest x-ray shows no active cardiopulmonary process. Additional diagnostics this admission include: Venous Doppler negative for DVT bilateral Left foot x-ray shows diffuse osteopenia with no other significant abnormality. Left knee x-ray shows osteoarthritis with markedly progression from exam one year prior. Additional findings and report. Chest CT shows some pleural thickening and reticular infiltrate at the lung apices consistent with scarring. Mild pulmonary emphysema. Patient was given IV solumedrol for an acute COPD exacerbation this admission and was changed to a prednisone burst and taper for discharge. Also was started on oral levofloxacin for a total of 7 days of treatment. He will currently need 2 more days after discharge of levofloxacin and then can discontinue. Patient was switched from oral Lasix to Demadex and Aldactone. Patient was evaluated by orthopedics who felt he was not a surgical candidate at this time for left total knee replacement and he was than seen in consult by pain management who started patient on precocet 5 mg every 6 hrs as needed and will follow up in the office after discharge with both orthopedics and pain management. Patient will discharge on duonebs, perforomist, and symbicort. Continue on all other home medications. Patient also received a one time dose of samsca prior to discharge for low sodium and will follow up with nephrology in the office with repeat sodium level in 2 days. 05/16/2021 Patient evaluated today sitting up in his wheelchair. States he is waiting to be discharged today to rehab. States breathing is improved today , he was transitioned yesterday off of IV steroids and started on a steroid burst and taper. Nephrology is cleared patient for discharge today after receiving a dose of Samsca and will follow up with labs in 2 days as mentioned above. His main complaint is left knee pain, he continues on percocet as needed and states he is getting pain relief with medication. Patient can also take colace daily to avoid constipation from narcotic use. White blood cell count was normal on admission however patient was started on IV solumedrol to 60 mg every 6 hours white count is 16.3 today which is increased slightly from admission, this could be steroid effect and will repeat in 2 days. Otherwise, hemoglobin is stable, platelet count stable, sodium 128 today, chloride 84, CO2 31, BUN 41, creatinine 1.3 glucose in the 100's. Vitals today; patient is afebrile, heart rate 74, blood pressure 150/54, 98% on room air. S1 and S2 auscultated, lungs have adequate aeration, patients does sound coarse with congested cough, however, there are no crackles noted or wheezing. Patient has remained in a negative fluid balance of 1.5 L in the last 24 hours. He denies chest pain, nausea, vomiting, or diarrhea. Peripheral edema has improved. Plan for discharge to rehab today. 05/17/2021 Patient evaluated today sitting up. Complains of left knee pain rated 9 out of 10, currently due for pain medication. Anticipating discharge to rehab today. Continues on Percocet with pain control will follow-up with Dr Tiwari for pain management outpatient. White blood cell count today continues to improve and is now 13.6, sodium level 127. Patient received another dose of Samsca today. 4 follow-up with nephrology outpatient 1-2 weeks. We'll repeat BMP in 1-2 days. CO2 today 38, chloride 81, BUN 40, creatinine 1.34, blood glucose 112. Vital signs the patient is afebrile, heart rate 74, blood pressure 122/61, 100% on room air. Patient continues with congested cough with coarse lung sounds however he does have improved aeration since yesterday. Will order an incentive spirometer. He denies shortness of breath at rest, denies chest pain, chest pressure, palpitations. Continue with 1500 mL fluid restriction. Please see medication reconciliation for a list of current medication. Thank you for allowing us to participate in the care of this patient. Patient Condition at Discharge: Fair Plan - Discharge Summary Discharge Rx Participant: No New Discharge Prescriptions: New Levofloxacin [Levaquin] 750 mg PO DAILY 2 Days #2 tab Famotidine [Pepcid] 20 mg PO BID tab predniSONE 0 mg PO DIRECTED #22 tab Budesonide [Pulmicort] 1 mg INHALATION RT-BID ml Torsemide [Demadex] 20 mg PO BID tab Ipratropium-Albuterol Nebulize [Duoneb 0.5 mg-3 mg/3 ml Soln] 3 ml INHALATION RT-QID ml INSULIN ASPART (NovoLOG) [NovoLOG (formulary)] 0 unit SQ ACHS ml oxyCODONE-APAP 5-325MG [Percocet 5-325 mg] 1 each PO Q6HR PRN #4 tab PRN Reason: Pain Formoterol Fumarate [Perforomist] 20 mcg INHALATION RT-BID ml Docusate [Colace] 100 mg PO DAILY #2 capsule Continue Latanoprost [Xalatan 0.005%] 1 drop LEFT EYE HS Vit C/E/Zn/Coppr/Lutein/Zeaxan [Preservision Areds 2 Softgel] 1 tab PO BID Spironolactone [Aldactone] 25 mg PO DAILY 30 Days #30 tab Albuterol Nebulized [Ventolin Nebulized] 2.5 mg INHALATION RT-QID PRN PRN Reason: Shortness Of Breath Metoprolol Succinate (ER) [Toprol XL] 25 mg PO DAILY Acetaminophen [Tylenol] 500 mg PO QID PRN PRN Reason: Pain Multivit-Min/Folic/Vit K/Lycop [Men's Multivitamin Tablet] 1 tab PO DAILY Albuterol Sulfate [Proventil Hfa] 2 puff INHALATION RT-QID PRN PRN Reason: Shortness Of Breath Budesonide/Formoterol Fumarate [Symbicort 80-4.5 Mcg Inhaler] 2 puff INHALATION RT-BID Ibuprofen [Motrin] 800 mg PO TID PRN PRN Reason: Pain Rosuvastatin Calcium [Crestor] 10 mg PO HS DULoxetine HCL [Cymbalta] 30 mg PO DAILY Discontinued Furosemide [Lasix] 40 mg PO DAILY 30 Days #30 tab Discharge Medication List Latanoprost [Xalatan 0.005%] 1 drop LEFT EYE HS 10/31/17 [History] Vit C/E/Zn/Coppr/Lutein/Zeaxan [Preservision Areds 2 Softgel] 1 tab PO BID 08/22/19 [History] Spironolactone [Aldactone] 25 mg PO DAILY 30 Days #30 tab 09/12/19 [Rx] Albuterol Nebulized [Ventolin Nebulized] 2.5 mg INHALATION RT-QID PRN 08/13/20 [History] Acetaminophen [Tylenol] 500 mg PO QID PRN 02/09/21 [History] Metoprolol Succinate (ER) [Toprol XL] 25 mg PO DAILY 02/09/21 [History] Multivit-Min/Folic/Vit K/Lycop [Men's Multivitamin Tablet] 1 tab PO DAILY 02/09/21 [History] Albuterol Sulfate [Proventil Hfa] 2 puff INHALATION RT-QID PRN 03/06/21 [History] Budesonide/Formoterol Fumarate [Symbicort 80-4.5 Mcg Inhaler] 2 puff INHALATION RT-BID 03/06/21 [History] Ibuprofen [Motrin] 800 mg PO TID PRN 03/06/21 [History] Rosuvastatin Calcium [Crestor] 10 mg PO HS 03/06/21 [History] DULoxetine HCL [Cymbalta] 30 mg PO DAILY 05/07/21 [History] Budesonide [Pulmicort] 1 mg INHALATION RT-BID ml 05/16/21 [Rx] Docusate [Colace] 100 mg PO DAILY #2 capsule 05/16/21 [Rx] Famotidine [Pepcid] 20 mg PO BID tab 05/16/21 [Rx] Formoterol Fumarate [Perforomist] 20 mcg INHALATION RT-BID ml 05/16/21 [Rx] INSULIN ASPART (NovoLOG) [NovoLOG (formulary)] 0 unit SQ ACHS ml 05/16/21 [Rx] Ipratropium-Albuterol Nebulize [Duoneb 0.5 mg-3 mg/3 ml Soln] 3 ml INHALATION RT-QID ml 05/16/21 [Rx] Levofloxacin [Levaquin] 750 mg PO DAILY 2 Days #2 tab 05/16/21 [Rx] Torsemide [Demadex] 20 mg PO BID tab 05/16/21 [Rx] oxyCODONE-APAP 5-325MG [Percocet 5-325 mg] 1 each PO Q6HR PRN #4 tab 05/16/21 [Rx] predniSONE 0 mg PO DIRECTED #22 tab 05/16/21 [Rx] Follow up Appointment(s)/Referral(s): Viky Clemons, PAC [PHYSICIAN LATENT PRINT EXAMINER] - 1 Week (Follow up regarding left knee ) Kaylyn Ogden MD [STAFF PHYSICIAN] - 1 Week Dania Page MD [STAFF PHYSICIAN] - 2 Weeks Bia Anderson MD [Primary Care Provider] - 1-2 days [facility], [NON-STAFF] - As Needed Jacques Mitchell MD [STAFF PHYSICIAN] - 1 Week Ambulatory/Diagnostic Orders: Basic Metabolic Panel [LAB.AMB] Time Frame: 2 Days, Location: None Selected Complete Blood Count w/diff [LAB.AMB] Time Frame: 2 Days, Location: None Selected Discharge Disposition: TRANSFER TO SNF/ECF
== END 2021-05-17 14:06 | DRG 190 ==
LOC: EC 18:31 → 4SSUR 21:14
PROVIDERS: ADMIT Internal Medicine; ATTEND Internal Medicine
DX: J43.9 Emphysema, unspecified (principal); I50.23 Acute on chronic systolic (congestive) heart failure; E87.1 Hypo-osmolality and hyponatremia; R04.2 Hemoptysis; I11.0 Hypertensive heart disease with heart failure; I48.0 Paroxysmal atrial fibrillation; E86.1 Hypovolemia; I77.810 Thoracic aortic ectasia; B95.3 Streptococcus pneumoniae as the cause of diseases classified elsewhere; B96.89 Other specified bacterial agents as the cause of diseases classified elsewhere; E78.5 Hyperlipidemia, unspecified; M85.872 Other specified disorders of bone density and structure, left ankle and foot; M17.12 Unilateral primary osteoarthritis, left knee; K44.9 Diaphragmatic hernia without obstruction or gangrene; K22.70 Barrett's esophagus without dysplasia; H35.30 Unspecified macular degeneration; G89.4 Chronic pain syndrome; M54.50 Low back pain, unspecified; G62.9 Polyneuropathy, unspecified; D64.9 Anemia, unspecified; E66.9 Obesity, unspecified; Z68.31 Body mass index [BMI] 31.0-31.9, adult; H40.9 Unspecified glaucoma; Z79.51 Long term (current) use of inhaled steroids; Z79.899 Other long term (current) drug therapy; Z87.891 Personal history of nicotine dependence; Z86.16 Personal history of COVID-19; Z87.01 Personal history of pneumonia (recurrent); Z87.39 Personal history of other diseases of the musculoskeletal system and connective tissue; Z98.890 Other specified postprocedural states; Z71.3 Dietary counseling and surveillance; Z88.6 Allergy status to analgesic agent
CPT/HCPCS: 36415; 71046; 71260; 80048; 80053; 81003; 82570; 83605; 83735; 83880; 83930; 83935; 84145; 84300; 84443; 84484; 85025; 85027; 85610; 85730; 87070; 87077; 87186; 87205; 93005; 93970; 94640; 94760; 96374; 96375; 99285

== ENCOUNTER 2021-06-07 19:10 | Inpatient (IN) | payer MEDICARE, OTHER ==
[2021-06-07] MEDS ORDERED: NITROGLYCERIN OINT 1 INCH/GM PACKET TOPICAL STA (19:19)
[2021-06-07] MEDS ORDERED: IPRATROPIUM-ALBUTEROL 3 ML NEB INHALATION STA ×2 (19:20→21:46)
[2021-06-07] MEDS ORDERED: FUROSEMIDE 10 MG/ML 10 ML VIAL IV STA (19:21)
--- NOTE | 2021-06-07 19:26 | ED ---
Chest Pain HPI - General Stated Complaint: Chest Pain Time Seen by Provider: 06/07/21 19:12 Source: RN notes reviewed - History of Present Illness Initial Comments: This is a pleasant 66-year-old male who arrives via EMS for intermittent chest pains which became constant about 5 PM today. He states he is having a sharp pain in the anterior chest which is exacerbated by deep breathing. States it's been intermittent for the past 2 days. Does not appear to be any alleviating factors. Patient has had a cough which is occasionally productive. No hemoptysis. Patient also having some difficulty breathing and peripheral edema. Patient has a history of congestive heart failure as well as COPD. Patient took a breathing treatment prior to leaving home but states it didn't help. He also states he has increased swelling in both legs. No headache, no fever or chills, no changes in vision or hearing, no sore throat or difficulty with speech, no neck pain, no abdominal pain, no nausea or vomiting, no changes in urination or bowel movements, no numbness or tingling, no extremity pain, no skin rashes or lesions. MD Complaint: chest pain - Related Data Home Medications Medication Instructions Recorded Confirmed Latanoprost [Xalatan 0.005%] 1 drop LEFT EYE HS 10/31/17 06/01/21 Vit C/E/Zn/Coppr/Lutein/Zeaxan 1 tab PO BID 08/22/19 06/01/21 [Preservision Areds 2 Softgel] Albuterol Nebulized [Ventolin 2.5 mg INHALATION RT-QID PRN 08/13/20 06/01/21 Nebulized] Acetaminophen [Tylenol] 500 mg PO QID PRN 02/09/21 06/01/21 Metoprolol Succinate (ER) [Toprol 25 mg PO DAILY 02/09/21 06/01/21 XL] Multivit-Min/Folic/Vit K/Lycop 1 tab PO DAILY 02/09/21 06/01/21 [Men's Multivitamin Tablet] Albuterol Sulfate [Proventil Hfa] 2 puff INHALATION RT-QID PRN 03/06/21 06/01/21 Budesonide/Formoterol Fumarate 2 puff INHALATION RT-BID 03/06/21 06/01/21 [Symbicort 80-4.5 Mcg Inhaler] Ibuprofen [Motrin] 800 mg PO TID PRN 03/06/21 06/01/21 Rosuvastatin Calcium [Crestor] 10 mg PO HS 03/06/21 06/01/21 DULoxetine HCL [Cymbalta] 30 mg PO DAILY 05/07/21 06/01/21 Previous Rx's Medication Instructions Recorded Spironolactone [Aldactone] 25 mg PO DAILY 30 Days #30 tab 09/12/19 Budesonide [Pulmicort] 1 mg INHALATION RT-BID ml 05/16/21 Docusate [Colace] 100 mg PO DAILY #2 capsule 05/16/21 Famotidine [Pepcid] 20 mg PO BID tab 05/16/21 Formoterol Fumarate [Perforomist] 20 mcg INHALATION RT-BID ml 05/16/21 INSULIN ASPART (NovoLOG) [NovoLOG 0 unit SQ ACHS ml 05/16/21 (formulary)] Ipratropium-Albuterol Nebulize 3 ml INHALATION RT-QID ml 05/16/21 [Duoneb 0.5 mg-3 mg/3 ml Soln] Levofloxacin [Levaquin] 750 mg PO DAILY 2 Days #2 tab 05/16/21 Torsemide [Demadex] 20 mg PO BID tab 05/16/21 oxyCODONE-APAP 5-325MG [Percocet 1 each PO Q6HR PRN #4 tab 05/16/21 5-325 mg] predniSONE 0 mg PO DIRECTED #22 tab 05/16/21 traMADol HCL [Ultram] 50 mg PO Q8HR PRN 30 Days #90 tab 06/01/21 Allergies Allergy/AdvReac Type Severity Reaction Status Date / Time aspirin Allergy Rash/Hives Verified 06/07/21 21:53 Review of Systems ROS Statement: Those systems with pertinent positive or pertinent negative responses have been documented in the HPI. ROS Other: All systems not noted in ROS Statement are negative. EKG Findings - EKG Comments: EKG Findings:: EKG done at 1914. ED attending physician reveals sinus rhythm with occasional PACs. Rate is 79, normal intervals, normal axis, for computerized interpretation there is 0.[address] depression this appears to be possibly due to V4. No evidence of ST elevation. Normal QRS morphology. When compared to the previous study from 05/07/2021 there is no significant change Past Medical History Past Medical History: Atrial Fibrillation, Heart Failure, COPD, Eye Disorder, Hyperlipidemia, Osteoarthritis (OA), Pneumonia Additional Past Medical History / Comment(s): Paroxysmal Afib, chronic systolic chf, bronchitectoasis/bronchitis, Herring's esophagus, hiatal hernia, anemia, rectus sheath hematoma, L eye glaucoma, chronic low back and L knee pain, does not tolerate statins. History of Any Multi-Drug Resistant Organisms: None Reported Past Surgical History: Orthopedic Surgery Additional Past Surgical History / Comment(s): LT SHOULDER sx in 2009 with hardware., bronchoscopy Past Anesthesia/Blood Transfusion Reactions: No Reported Reaction Smoking Status: Former smoker - Past Family History Daughter(s) Family Medical History: No Reported History Father Family Medical History: No Reported History Additional Family Medical History / Comment(s): Father was healthy Mother Family Medical History: No Reported History Additional Family Medical History / Comment(s): Mother was healthy. General Exam - General Exam Comments Initial Comments: 66-year-old male in mild distress secondary to chest pain with mild increased work of breathing. Vital signs reviewed. Patient does not appear to be toxic. Cranial nerves II through XII grossly intact. Capillary refill less than 2 seconds. Limitations: no limitations General appearance: in distress Head exam: Present: atraumatic, normocephalic, normal inspection Eye exam: Present: normal appearance, PERRL, EOMI. Absent: scleral icterus, conjunctival injection, periorbital swelling ENT exam: Present: normal exam, normal oropharynx, mucous membranes dry, mucous membranes moist, normal external ear exam Neck exam: Present: normal inspection, full ROM. Absent: tenderness, meningismus, lymphadenopathy Respiratory exam: Present: respiratory distress, wheezes, rales, chest wall tenderness, accessory muscle use, other (Scattered wheezes, inspiratory and expiratory, mild bibasilar rales). Absent: rhonchi, stridor Cardiovascular Exam: Present: regular rate, normal rhythm, normal heart sounds. Absent: systolic murmur, diastolic murmur, rubs, gallop, clicks GI/Abdominal exam: Present: soft, normal bowel sounds. Absent: distended, tenderness, guarding, rebound, rigid Extremities exam: Present: normal inspection, full ROM, normal capillary refill, pedal edema. Absent: tenderness, joint swelling, calf tenderness Back exam: Present: normal inspection Neurological exam: Present: alert, oriented X3, CN II-XII intact Psychiatric exam: Present: normal affect, normal mood Skin exam: Present: warm, dry, intact, normal color. Absent: rash Course Vital Signs 06/07/21 06/07/21 06/07/21 19:10 20:01 20:08 Temperature 98.2 F Pulse Rate 81 89 88 Respiratory 18 Rate Blood Pressure 124/70 O2 Sat by Pulse 98 Oximetry - Reevaluation(s) Reevaluation #1: 06/07/21 20:22 Medical record is reviewed Symptoms are somewhat improved here in the emergency department Patient is informed of results and questions answered Patient in no distress Decrease work of breathing, capillary refill less than 2 seconds Reevaluation #2: 06/07/21 20:23 CT angiogram chest ordered to rule out pulmonary embolism Reevaluation #3: 06/07/21 21:56 Medical record is reviewed Symptoms are improved --patient still has some wheezing and increased work of breathing. Repeat breathing treatment ordered. Solu-Medrol ordered. Sliding scale place. Patient is informed of results and questions answered Patient in no distress - Consultations Consultation #1: Discussed the case with the [facility] chief PCP. Betasept admission the patient. Patient will be treated for COPD exacerbation. Consultation from pulmonary. Treatment for hyponatremia and hypokalemia Chest Pain MDM - MDM She presents with a mixed picture with symptoms consistent of a CHF exacerbation as well as COPD. Also has pleuritic type anterior chest pain. Pulmonary embolism is possible. Less likely ischemic heart pain. The case was discussed in detail with ED attending physician. Presentation, findings, treatment plan discussed in detail. 2022, patient noted to have hypokalemia at 3.3. Hyponatremia 127. Mildly worsening chronic anemia. Chest x-ray was clear. Likely COPD exacerbation. However we'll order a CTA chest to rule out pulmonary embolism. Disposition Clinical Impression: Pleuritic chest pain, COPD exacerbation, Hypokalemia, Hyponatremia Disposition: ADMITTED IP TO THIS HOSP Condition: Stable
[2021-06-07 20:08] LABS: HCT 30.1 % (39.0-53.0); MCH 34.3 pg (25.0-35.0); MCHC 34.4 g/dL (31.0-37.0); MCV 99.7 fL (80.0-100.0); Mean Platelet Volume 6.7; Platelet Count 478 k/uL (150-450); RBC 3.01 m/uL (4.30-5.90); WBC 7.5 k/uL (3.8-10.6)
[2021-06-07 20:09] LABS: ALT 20 U/L (4-49); AST 25 U/L (17-59); African American GFR (CKD) >90 (>60 ml/min/1.73 sqM); Alkaline Phosphatase 83 U/L (38-126); Anion Gap 9 mmol/L; Blood Urea Nitrogen 5 mg/dL (9-20); Calcium 8.3 mg/dL (8.4-10.2); Carbon Dioxide 29 mmol/L (22-30); Chloride 89 mmol/L (98-107); Glucose 99 mg/dL (74-99); Magnesium 1.7 mg/dL (1.6-2.3); Non-African American GFR(CKD) >90 (>60 ml/min/1.73 sqM); Potassium 3.3 mmol/L (3.5-5.1); Sodium 127 mmol/L (137-145); Total Bilirubin 0.6 mg/dL (0.2-1.3); Total Protein 5.7 g/dL (6.3-8.2)
[2021-06-07 20:17] LABS: INR 0.9 (<1.2); Prothrombin Time 10.3 sec (9.0-12.0)
[2021-06-07] MEDS: ACETAMINOPHEN TAB 500 MG TAB PO STA (20:17)
[2021-06-07 20:19] LABS: HGB 10.3 gm/dL (13.0-17.5)
--- NOTE | 2021-06-07 20:20 | XR ---
EXAMINATION TYPE: XR chest 1V portable DATE OF EXAM: 06/07/2021 COMPARISON: 05/07/2021 HISTORY: Chest pain TECHNIQUE: FINDINGS: Heart is normal. Lungs are clear of consolidation. There are no hilar masses. Costophrenic angles are clear. The bony thorax is intact. IMPRESSION: No active cardiopulmonary disease. Normal heart. No change.
[2021-06-07] MEDS ORDERED: POTASSIUM CHLORIDE ER 20 MEQ TAB.ER PO STA (20:23)
[2021-06-07 20:26] LABS: Partial Thromboplastin Time 22.5 sec (22.0-30.0)
[2021-06-07] MEDS ORDERED: oxyCODONE-APAP 5-325MG 1 EACH TAB PO STA (20:31)
[2021-06-07 20:36] LABS: RBC Morphology Norm
[2021-06-07 20:40] LABS: Eosinophils # (M) 0.23 k/uL (0-0.7); Neutrophils # (M) 5.48 k/uL (1.3-7.7); Neutrophils % (M) 73 %; Nucleated Red Blood Cells 0 /100 WBC (0-0); Total Cells Counted 100
--- NOTE | 2021-06-07 21:20 | CT ---
EXAMINATION TYPE: CT angio chest DATE OF EXAM: 06/07/2021 COMPARISON: 05/11/2021 08/19/2020 HISTORY: chest pain CT DLP: 487.4 mGycm Automated exposure control for dose reduction was used. CONTRAST: Performed with IV Contrast, patient injected with 80 mL of Isovue 370. There are Three-D postprocessed images. There are some reticular interstitial and nodular infiltrates at the lung apices. There is no mediast inal adenopathy. There are no hilar masses. Thoracic aorta is intact. No aneurysm. Ascending aorta me asures 3.5 cm. No dissection. There is no evidence of filling defect in the pulmonary arteries. There is no pleural effusion. No pericardial effusion. Heart size is normal. The thoracic spine is in tact. IMPRESSION: No evidence of pulmonary embolism. No evidence of aortic aneurysm or dissection. Reticular nodular in filtrates at the lung apices not significantly different than exam of 08/19/2020.
[2021-06-07] MEDS ORDERED: methylPREDNISolone SOD SUCCI 125 MG/2 ML VIAL IV STA (21:46)
[2021-06-07] MEDS ORDERED: NALOXONE 0.4 MG/ML 1 ML VIAL IV PRN (21:47)
[2021-06-07] MEDS ORDERED: ONDANSETRON 4 MG/2 ML VIAL IVP PRN (21:47)
[2021-06-07] MEDS ORDERED: ACETAMINOPHEN TAB 325 MG TAB PO PRN (21:47)
[2021-06-07] MEDS ORDERED: ALBUTEROL NEBULIZED 2.5 MG/3 ML INHALATION PRN ×2 (21:58→23:19)
[2021-06-08] MEDS: methylPREDNISolone SOD SUCCI 125 MG/2 ML VIAL IV SCH ×3 (02:07→20:44)
[2021-06-08] MEDS: SODIUM CHLORIDE 0.9% 1,000 ML IV SCH ×3 (02:08→20:44)
[2021-06-08] MEDS: AZITHROMYCIN 500 MG TAB PO SCH ×2 (02:09→08:58)
[2021-06-08] MEDS: traMADol 50 MG TAB PO PRN (02:12)
[2021-06-08 02:24] LABS: Glucose,Whole Blood 121 mg/dL (75-99)
[2021-06-08 03:27] LABS: African American GFR (CKD) >90 (>60 ml/min/1.73 sqM); Anion Gap 5 mmol/L; Blood Urea Nitrogen 9 mg/dL (9-20); Carbon Dioxide 31 mmol/L (22-30); Chloride 93 mmol/L (98-107); Glucose 108 mg/dL (74-99); Magnesium 1.8 mg/dL (1.6-2.3); Non-African American GFR(CKD) >90 (>60 ml/min/1.73 sqM); Potassium 3.7 mmol/L (3.5-5.1); Sodium 129 mmol/L (137-145)
[2021-06-08] MEDS: oxyCODONE-APAP 5-325MG 1 EACH TAB PO PRN ×3 (04:03→21:29)
[2021-06-08 04:18] LABS: HCT 30.8 % (39.0-53.0); HGB 10.4 gm/dL (13.0-17.5); MCHC 33.8 g/dL (31.0-37.0); MCV 100.6 fL (80.0-100.0); Mean Platelet Volume 6.9; Platelet Count 414 k/uL (150-450); RBC 3.07 m/uL (4.30-5.90); RDW 12.2 % (11.5-15.5); WBC 6.2 k/uL (3.8-10.6)
[2021-06-08 05:50] LABS: Band Neutrophils % 2 %; Eosinophils # (M) 0.43 k/uL (0-0.7); Lymphocytes # (M) 1.98 k/uL (1.0-4.8); Metamyelocytes # (M) 0.06 k/uL (0); Metamyelocytes % 1 %; Neutrophils % (M) 52 %; Nucleated Red Blood Cells 0 /100 WBC (0-0); Total Cells Counted 200
[2021-06-08 05:51] LABS: Anisocytosis (M) Present
[2021-06-08 05:52] LABS: Polychromasia Present
[2021-06-08 07:48] LABS: Glucose,Whole Blood 219 mg/dL (75-99)
[2021-06-08] MEDS: SYMBICORT 80-4.5 MCG INHALER INHALATION SCH ×2 (08:08→20:22)
[2021-06-08] MEDS: IPRATROPIUM-ALBUTEROL 3 ML NEB INHALATION SCH ×4 (08:08→20:22)
[2021-06-08] MEDS: ALBUTEROL NEBULIZED 2.5 MG/3 ML INHALATION SCH ×4 (08:08→20:22)
[2021-06-08] MEDS: INSULIN ASPART (NovoLOG) 100 UNIT/ML VIAL SQ SCH ×4 (08:57→21:25)
[2021-06-08] MEDS: SPIRONOLACTONE 25 MG TAB PO SCH (08:58)
[2021-06-08] MEDS: METOPROLOL SUCCINATE (ER) 25 MG TAB.ER.24H PO SCH (08:58)
[2021-06-08] MEDS: MULTIVITAMINS, THERA 1 EACH TAB PO SCH (08:58)
[2021-06-08] MEDS: DULoxetine HCL 30 MG CAPSULE.DR PO SCH (08:58)
[2021-06-08] MEDS: VIT A,C & E-LUTEIN-MINERALS 1 EACH TAB PO SCH ×2 (08:59→21:25)
[2021-06-08] MEDS ORDERED: bisacodyL 5 MG TABLET.DR PO PRN (09:00)
[2021-06-08] MEDS ORDERED: FUROSEMIDE 40 MG TAB PO SCH (09:00)
--- NOTE | 2021-06-08 12:07 | P.CNPUL ---
History of Present Illness Consult date: 06/08/21 Requesting physician: Kirill Cooley Reason for consult: dyspnea, chest pain Chief complaint: Chest pain, shortness of breath History of present illness: This is 66-year-old male patient with a known history of chronic obstructive pulmonary disease with biapical scarring, Former smoker of 45 years however quit in 2019, hypertension, hyperlipidemia, depression, atrial fibrillation, systolic congestive heart failure, Herring's esophagus, macular degeneration, osteoarthritis. He was here April 2021 with Moraxella, Vanessa and Streptococcus pneumoniae in his sputum. He presented to the emergency room yesterday with a 2 day history of sharp stabbing pain in the middle of his chest. He stated it was worse with deep breathing. More constant and intermittent. He did do a breathing treatment at home without much improvement. He was having some palpitations. He also states he has had some increased swelling in his lower extremities. Chest x-ray reveals no active cardiopulmonary disease. EKG reveals sinus rhythm with nonspecific ST and T wave abnormalities. CT angiogram of the chest revealed no evidence of pulmonary embolism. No evidence of aortic dissection or aneurysm. Reticular nodular infiltrates in the lung apices are unchanged. White count 6.2. Hemoglobin 10.4. MCV 100.6. Sodium 129. Potassium 3.7. Bicarb 31. BUN 9. Creatinine 0.71. Troponins negative 3. Clarke virus by PCR not detected. He is seen today in consultation in the emergency department. Currently sitting up in the stretcher. Awake and alert in no acute distress. Maintaining O2 saturations in the mid 90s on room air. He's been afebrile. Hemodynamically stable. Review of Systems REVIEW OF SYSTEMS: CONSTITUTIONAL: Denies any recent significant weight loss or weight gain. EYES: Denies change in vision. EARS, NOSE, MOUTH, THROAT: Denies headaches, denies sore throat. CARDIOVASCULAR: Positive for chest pain, palpitations no syncopal episodes. RESPIRATORY: Positive shortness of breath, no cough, congestion or hemoptysis. GASTROINTESTINAL: Denies change in appetite, denies abdominal pain GENITOURINARY: Denies hematuria, denies infections. MUSKULOSKELETAL: Positive for increased swelling of the lower extremities. INTEGUMENTARY: Denies rash, denies eczema. NEUROLOGICAL: Denies recent memory loss, no recent seizure activity. PSYCHIATRIC: Denies anxiety, denies depression. HEMATOLOGIC/LYMPHATIC: Denies anemia, denies enlarged lymph nodes. Past Medical History Past Medical History: Atrial Fibrillation, Heart Failure, COPD, Eye Disorder, Hyperlipidemia, Osteoarthritis (OA), Pneumonia Additional Past Medical History / Comment(s): Paroxysmal Afib, chronic systolic chf, bronchitectoasis/bronchitis, Herring's esophagus, hiatal hernia, anemia, rectus sheath hematoma, L eye glaucoma, chronic low back and L knee pain, does not tolerate statins. History of Any Multi-Drug Resistant Organisms: None Reported Past Surgical History: Orthopedic Surgery Additional Past Surgical History / Comment(s): LT SHOULDER sx in 2009 with hardware., bronchoscopy Past Anesthesia/Blood Transfusion Reactions: No Reported Reaction Smoking Status: Former smoker - Past Family History Daughter(s) Family Medical History: No Reported History Father Family Medical History: No Reported History Additional Family Medical History / Comment(s): Father was healthy Mother Family Medical History: No Reported History Additional Family Medical History / Comment(s): Mother was healthy. Medications and Allergies Home Medications Medication Instructions Recorded Confirmed Type Latanoprost [Xalatan 0.005%] 1 drop LEFT EYE HS 10/31/17 06/07/21 History Vit C/E/Zn/Coppr/Lutein/Zeaxan 1 tab PO BID 08/22/19 06/07/21 History [Preservision Areds 2 Softgel] Spironolactone [Aldactone] 25 mg PO DAILY 30 Days #30 tab 09/12/19 06/07/21 Rx Albuterol Nebulized [Ventolin 2.5 mg INHALATION RT-QID PRN 08/13/20 06/07/21 History Nebulized] Metoprolol Succinate (ER) [Toprol 25 mg PO DAILY 02/09/21 06/07/21 History XL] Multivit-Min/Folic/Vit K/Lycop 1 tab PO DAILY 02/09/21 06/07/21 History [Men's Multivitamin Tablet] Albuterol Sulfate [Proventil Hfa] 2 puff INHALATION RT-QID PRN 03/06/21 06/07/21 History Budesonide/Formoterol Fumarate 2 puff INHALATION RT-BID 03/06/21 06/07/21 History [Symbicort 80-4.5 Mcg Inhaler] Rosuvastatin Calcium [Crestor] 10 mg PO HS 03/06/21 06/07/21 History DULoxetine HCL [Cymbalta] 30 mg PO DAILY 05/07/21 06/07/21 History traMADol HCL [Ultram] 50 mg PO Q8HR PRN 30 Days #90 tab 06/01/21 06/07/21 Rx Furosemide [Lasix] 40 mg PO DAILY 06/07/21 06/07/21 History Allergies Allergy/AdvReac Type Severity Reaction Status Date / Time aspirin Allergy Rash/Hives Verified 06/07/21 21:53 Physical Exam Vitals: Vital Signs Temp Pulse Resp BP Pulse Ox 06/08/21 11:37 86 06/08/21 09:06 98.0 F 98 20 112/52 95 06/08/21 08:17 99 06/08/21 08:08 98 06/08/21 06:47 86 20 117/61 94 L 06/08/21 04:06 87 18 106/61 96 06/07/21 20:08 88 06/07/21 20:01 89 06/07/21 19:10 98.2 F 81 18 124/70 98 Intake and Output 06/07/21 06/08/21 06/08/21 22:59 06:59 14:59 Other: Weight 102.058 kg GENERAL EXAM: Alert, pleasant 66-year-old male patient, on room air, fairly comfortable in no apparent distress. HEAD: Normocephalic. EYES: Normal reaction of pupils, equal size. NOSE: Clear with pink turbinates. THROAT: No erythema or exudates. NECK: No masses, no JVD. CHEST: No chest wall deformity. LUNGS: Equal air entry with no crackles, wheeze, rhonchi or dullness. Diminished. CVS: S1 and S2 normal with no audible murmur, regular rhythm. ABDOMEN: No hepatosplenomegaly, normal bowel sounds, no guarding or rigidity. SPINE: No scoliosis or deformity SKIN: No rashes CENTRAL NERVOUS SYSTEM: No focal deficits, tone is normal in all 4 extremities. EXTREMITIES: There is 1-2+ peripheral edema. No clubbing, no cyanosis. Peripheral pulses are intact. Results - Laboratory Findings CBC and BMP: 06/08/21 02:57 06/08/21 02:57 PT/INR, D-dimer PT 10.3 sec (9.0-12.0) 06/07/21 19:53 INR 0.9 (<1.2) 06/07/21 19:53 Abnormal lab findings: Abnormal Labs 06/07/21 06/07/21 06/08/21 19:53 19:53 02:20 RBC 3.01 L Hgb 10.3 L D Hct 30.1 L MCV Plt Count 478 H Metamyelocytes # (Man) Sodium 127 L Potassium 3.3 L Chloride 89 L Carbon Dioxide BUN 5 L Creatinine 0.59 L Glucose POC Glucose (mg/dL) 121 H Calcium 8.3 L Total Protein 5.7 L Albumin 3.0 L 06/08/21 06/08/21 06/08/21 02:57 02:57 07:46 RBC 3.07 L Hgb 10.4 L Hct 30.8 L MCV 100.6 H Plt Count Metamyelocytes # (Man) 0.06 H Sodium 129 L Potassium Chloride 93 L Carbon Dioxide 31 H BUN Creatinine Glucose 108 H POC Glucose (mg/dL) 219 H Calcium 8.0 L Total Protein Albumin - Diagnostic Findings Chest x-ray: image reviewed CT scan - chest: image reviewed Assessment and Plan Assessment: 1 Atypical sharp chest pain of unclear etiology. Pulmonary embolism ruled out. Thoracic aneurysm and dissection ruled out. Troponins negative 3. 2 Lower extremity edema and weakness. Normally ambulates with a walker. 3 History of systolic congestive heart failure 4 History of chronic obstructive pulmonary disease, currently inactive and stable, known apical scarring 5 45 year smoking history however quit in 2018 6 History of COVID-19 infection status post monoclonal antibiotics. Not vaccinated. Hospitalized in February 2021 7 History of atrial fibrillation, currently in sinus rhythm 8 History of Herring's esophagus 9 History of macular degeneration 10 Previous history of Streptococcus pneumoniae positive sputum 11 Anemia, hemoglobin 10.4 Plan: The patient was seen and evaluated Chest x-ray, CAT scans and labs reviewed Stable from the pulmonary standpoint, on room air Continue Symbicort, DuoNeb inhalations Discontinue IV Solu-Medrol Home once cleared by medicine I have personally seen and examined the patient, performed the documentation and the assessment and plan as written. Number of minutes spent on the visit: 20.
[2021-06-08 12:24] LABS: Glucose,Whole Blood 223 mg/dL (75-99)
[2021-06-08] MEDS: HEPARIN SODIUM,PORCINE/PF 5,000 UNIT/0.5 ML SYRINGE SQ SCH ×2 (14:10→21:29)
[2021-06-08] MEDS: HYDROmorphone 0.5 MG/0.5 ML SYRINGE IVP PRN ×2 (14:11→22:51)
--- NOTE | 2021-06-08 15:57 | HP ---
HISTORY AND PHYSICAL DATE OF SERVICE: 06/08/2021 CHIEF COMPLAINTS: Shortness of breath and chest pain. HISTORY OF PRESENT ILLNESS: This 66-year-old gentleman with a past medical history of atrial fibrillation, CHF, COPD, being followed by Dr. Bia Anderson in the outpatient setting, was complaining of chest pain which was felt in the anterior part of the chest; rather sharp pain. The patient also had shortness of breath. The patient came to [facility] and was admitted for further evaluation and treatment. There is no history of fever, rigor or chills at this time. The patient was also complaining of cramps. PAST MEDICAL HISTORY: History of atrial fibrillation, CHF, COPD. reviewed. HOME MEDICATIONS: Reviewed. They include Ultram, Lasix. The doses are reviewed. ALLERGIES: ASPIRIN. FAMILY HISTORY: No history of heart disease or strokes in the family. SOCIAL HISTORY: Previous history of smoking. REVIEW OF SYSTEMS: Fourteen-point review of systems negative except as mentioned earlier. PHYSICAL EXAMINATION: Pulse is 90, blood pressure 112/58, respiration 20. HEENT: Conjunctivae normal. NECK: No jugular venous distention. CARDIOVASCULAR: S1, S2 muffled. RESPIRATION: Breath sounds diminished at the bases. Bilateral scattered rhonchi and expiratory wheezing. ABDOMEN: Soft, obese, non-tender. LEGS: Minimal edema. NERVOUS SYSTEM: Diffusely weak. LABS: WBC 6. hemoglobin 10.4. X-rays reviewed personally which showed increased bronchovascular markings. CT angio of the chest which was reviewed personally showed some reticular nodular infiltrate in apex, unchanged. ASSESSMENT: 1. Chronic obstructive pulmonary disease, acute exacerbation. 2. Chest pain; possible unstable angina. 3. History of congestive heart failure. 4. History of degenerative joint disease. RECOMMENDATIONS AND DISCUSSION: In this 66-year-old gentleman who presented with multiple complex medical issues, at this time I recommend to continue the current medications, continue symptomatic treatment. Bronchodilators. Cardiology consultation. Intravenous Lasix. Repeat labs. See orders for further details. Resume the home medications. Prognosis guarded. Further recommendations to follow. Discussed with the patient, who understands and agrees. MMODL / IJN: [id number] / MTDD
[2021-06-08 17:05] LABS: Glucose,Whole Blood 158 mg/dL (75-99)
[2021-06-08] MEDS: ACETAMINOPHEN TAB 500 MG TAB PO STA (20:44)
[2021-06-08 21:09] LABS: Glucose,Whole Blood 154 mg/dL (75-99)
[2021-06-08] MEDS: LATANOPROST 0.005% OPHTH DROPS 2.5 ML BTL LEFT EYE SCH (21:24)
[2021-06-08] MEDS: ATORVASTATIN 20 MG TAB PO SCH (21:25)
[2021-06-09] MEDS: SODIUM CHLORIDE 0.9% 1,000 ML IV SCH ×2 (01:46→23:43)
[2021-06-09] MEDS: oxyCODONE-APAP 5-325MG 1 EACH TAB PO PRN ×2 (02:37→17:29)
[2021-06-09 02:44] LABS: Glucose,Whole Blood 133 mg/dL (75-99)
[2021-06-09] MEDS: HYDROmorphone 0.5 MG/0.5 ML SYRINGE IVP PRN ×3 (03:23→21:53)
[2021-06-09] MEDS: ALBUTEROL NEBULIZED 2.5 MG/3 ML INHALATION SCH ×4 (07:53→21:04)
[2021-06-09] MEDS: IPRATROPIUM-ALBUTEROL 3 ML NEB INHALATION SCH ×4 (08:10→21:04)
[2021-06-09] MEDS: SYMBICORT 80-4.5 MCG INHALER INHALATION SCH ×2 (08:10→21:04)
[2021-06-09 09:14] LABS: Glucose,Whole Blood 113 mg/dL (75-99)
[2021-06-09] MEDS: INSULIN ASPART (NovoLOG) 100 UNIT/ML VIAL SQ SCH ×4 (09:49→21:55)
--- NOTE | 2021-06-09 09:58 | P.CRDCN ---
History of Present Illness History of present illness: HISTORY OF PRESENTING ILLNESS This is a pleasant 66-year-old with past medical history significant for COPD, emphysema, Paroxysmal atrial fibrillation, osteoarthritis, per lipidemia, congestive heart failure. Patient normally follows with Dr. Holly in the office. He presents with 2 days of chest pain as well as shortness breath. He felt like it was sharp and not necessarily associated with any movement however did appear worse when he was doing things. He is not very active secondary to knee pain and walks with a walker however states when he was walking around and would become somewhat worse. Denies any associated shortness of breath with the chest pain however has been having worsened shortness breath as well as lower extremity edema or last few days as well. He does have chronic orthopnea which she attributes to actually COPD. Denies any recent fevers, chills, cough. He also states he was feeling his heart racing however on presentation was noted be in sinus rhythm. He believes he had a recent stress test aproximally 6 months ago which was normal and no history of any heart catheterization. He had a chest CTA which showed no PE, no dissection and reticular nodular infiltrates at the lung apices similar to July 2020. Blood work showed hemoglobin 10.3, platelets 478, Troponin normal 3. ProBNP 650. REVIEW OF SYSTEMS At the time of my exam: CONSTITUTIONAL: Denies fever or chills. CARDIOVASCULAR: +chest pain, +chronic shortness of breath, +orthopnea, no PND, + palpitations. RESPIRATORY: Denies cough. GASTROINTESTINAL: Denies abdominal pain, diarrhea, constipation, nausea or vomiting. MUSCULOSKELETAL: Denies myalgias. NEUROLOGIC: Denies numbness, tingling or weakness. ENDOCRINE: Denies fatigue, weight change, polydipsia or polyurina. GENITOURINARY: Denies burning, hematuria or urgency with micturation. HEMATOLOGIC: Denies history of anemia or bleeding. PHYSICAL EXAMINATION Vital signs reviewed. CONSTITUTIONAL: No apparent distress. HEENT: Head is normocephalic. Pupils are equal, round. Sclerae anicteric. Mucous membranes of the mouth are moist. No JVD. No carotid bruit. CHEST EXAMINATION: Lungs are clear to auscultation. No chest wall tenderness is noted on palpation or with deep breathing. HEART EXAMINATION: Regular rate and rhythm. S1, S2 heard. No murmurs, gallops or rub. ABDOMEN: Soft, nontender. Positive bowel sounds. EXTREMITIES: 2+ peripheral pulses, 1+ lower extremity edema and no calf tenderness. NEUROLOGIC EXAMINATION: Patient is awake, alert and oriented x3. ASSESSMENT 1. Atypical chest pain however some times associated with exertion he will over last 2 days 2. Acute on chronic diastolic heart failure 3. Acute on chronic respiratory failure chronic COPD however appears volume overloaded and some component of heart failure 4. Palpitations 5. Documentation of paroxysmal atrial fibrillation however has been in sinus rhythm. Check office records to verify PLAN Patient's chest pain overall is somewhat atypical however it is also occurring with exertion and has a number of risk factors. We will check a Lexiscan stress test however he is R EKG this morning. Check stress test 06/10. Increase diur etics given he appears somewhat volume overloaded. Further recommendations to follow. Check 2-D echo. Past Medical History Past Medical History: Atrial Fibrillation, Heart Failure, COPD, Eye Disorder, Hyperlipidemia, Osteoarthritis (OA), Pneumonia Additional Past Medical History / Comment(s): Pt recently admtiited to [facility] on 05/07/21 with acute exacerbation COPD/hyponatremia/L knee effusion. Other hx: Paroxysmal Afib, chronic systolic chf, bronchitectasis/bronchitis, Herring's esophagus, hiatal hernia, anemia, rectus sheath hematoma, L eye glaucoma, chronic low back and L knee pain, does not tolerate statins. History of Any Multi-Drug Resistant Organisms: None Reported Past Surgical History: Orthopedic Surgery Additional Past Surgical History / Comment(s): LT SHOULDER sx in 2009 with hardware., bronchoscopy, EGDs Past Anesthesia/Blood Transfusion Reactions: No Reported Reaction Smoking Status: Former smoker - Past Family History Daughter(s) Family Medical History: No Reported History Father Family Medical History: No Reported History Additional Family Medical History / Comment(s): Father was healthy Mother Family Medical History: No Reported History Additional Family Medical History / Comment(s): Mother was healthy. Medications and Allergies Home Medications Medication Instructions Recorded Confirmed Type Latanoprost [Xalatan 0.005%] 1 drop LEFT EYE HS 10/31/17 06/07/21 History Vit C/E/Zn/Coppr/Lutein/Zeaxan 1 tab PO BID 08/22/19 06/07/21 History [Preservision Areds 2 Softgel] Spironolactone [Aldactone] 25 mg PO DAILY 30 Days #30 tab 09/12/19 06/07/21 Rx Albuterol Nebulized [Ventolin 2.5 mg INHALATION RT-QID PRN 08/13/20 06/07/21 History Nebulized] Metoprolol Succinate (ER) [Toprol 25 mg PO DAILY 02/09/21 06/07/21 History XL] Multivit-Min/Folic/Vit K/Lycop 1 tab PO DAILY 02/09/21 06/07/21 History [Men's Multivitamin Tablet] Albuterol Sulfate [Proventil Hfa] 2 puff INHALATION RT-QID PRN 03/06/21 06/07/21 History Budesonide/Formoterol Fumarate 2 puff INHALATION RT-BID 03/06/21 06/07/21 History [Symbicort 80-4.5 Mcg Inhaler] Rosuvastatin Calcium [Crestor] 10 mg PO HS 03/06/21 06/07/21 History DULoxetine HCL [Cymbalta] 30 mg PO DAILY 05/07/21 06/07/21 History traMADol HCL [Ultram] 50 mg PO Q8HR PRN 30 Days #90 tab 06/01/21 06/07/21 Rx Furosemide [Lasix] 40 mg PO DAILY 06/07/21 06/07/21 History Allergies Allergy/AdvReac Type Severity Reaction Status Date / Time aspirin Allergy Rash/Hives Verified 06/07/21 21:53 Physical Exam Vitals: Vital Signs Temp Pulse Pulse Resp BP BP Pulse Ox 06/09/21 08:00 98.3 F 87 19 99/50 97 06/09/21 02:00 97.8 F 80 16 130/70 95 06/08/21 20:33 98 06/08/21 20:24 98 06/08/21 19:56 97.5 F L 98 18 113/51 98 06/08/21 18:39 98.2 F 101 H 20 113/51 95 06/08/21 15:58 90 06/08/21 15:46 90 06/08/21 14:17 93 20 106/53 95 06/08/21 11:49 88 06/08/21 11:37 86 Intake and Output 06/08/21 06/09/21 06/09/21 22:59 06:59 14:59 Intake Total 160 Output Total 650 Balance 160 -650 Intake: Intake, IV Titration 160 Amount Sodium Chloride 0.9% 1, 160 000 ml @ 20 mls/hr IV . Q24H [facility] Rx#:[id number] Output: Urine 650 Other: Weight 102.058 kg Results 06/08/21 02:57 06/08/21 02:57 Current Medications Generic Name Dose Route Start Last Admin Trade Name Freq PRN Reason Stop Dose Admin Acetaminophen 650 mg 06/07/21 21:47 Acetaminophen Tab 325 Mg Tab PO Q6HR PRN Mild Pain or Fever > 100.5 Albuterol Sulfate 2.5 mg 06/08/21 08:00 06/09/21 07:53 Albuterol Nebulized 2.5 Mg/3 Ml INHALATION Not Given RT-QID TREVOR Albuterol Sulfate 2.5 mg 06/07/21 21:58 Albuterol Nebulized 2.5 Mg/3 Ml INHALATION Q2H PRN Wheezing Albuterol/Ipratropium 3 ml 06/08/21 08:00 06/09/21 08:10 Ipratropium-Albuterol 3 Ml Neb INHALATION Not Given RT-QID TREVOR Atorvastatin Calcium 20 mg 06/08/21 21:00 06/08/21 21:25 Atorvastatin 20 Mg Tab PO 20 mg HS TREVOR Administration Bisacodyl 5 mg 06/08/21 09:00 Bisacodyl 5 Mg Tablet. PO DAILY PRN Constipation Budesonide/Formoterol Fumarate 2 puff 06/08/21 08:00 06/09/21 08:10 Symbicort 80-4.5 Mcg Inhaler INHALATION Not Given RT-BID TREVOR Duloxetine HCl 30 mg 06/08/21 09:00 06/08/21 08:58 Duloxetine Hcl 30 Mg Capsule. PO 30 mg DAILY TREVOR Administration Heparin Sodium (Porcine) 5,000 unit 06/08/21 13:30 06/08/21 21:29 Heparin Sodium,Porcine/Pf 5,000 Unit/0.5 Ml Syringe SQ 5,000 unit Q12HR TREVOR Administration Hydromorphone HCl 0.5 mg 06/08/21 12:27 06/09/21 03:23 Hydromorphone 0.5 Mg/0.5 Ml Syringe IVP 0.5 mg Q4HR PRN Administration Pain Sodium Chloride 1,000 mls @ 20 mls/hr 06/07/21 22:00 06/09/21 01:46 Saline 0.9% IV 20 mls/hr .Q24H TREVOR Administration Insulin Aspart 0 unit 06/08/21 07:30 06/09/21 09:49 Insulin Aspart (Novolog) 100 Unit/Ml Vial SQ Not Given ACHS [facility] Protocol Latanoprost 1 drops 06/08/21 21:00 06/08/21 21:24 Latanoprost 0.005% Ophth Drops 2.5 Ml Btl LEFT EYE 1 drops HS TREVOR Administration Metoprolol Succinate 25 mg 06/08/21 09:00 06/08/21 08:58 Metoprolol Succinate (Er) 25 Mg Tab.Er.24h PO 25 mg DAILY TREVOR Administration Multivitamins 1 each 06/08/21 09:00 06/08/21 08:58 Multivitamins, Thera 1 Each Tab PO 1 each DAILY TREVOR Administration Multivitamins/Minerals 1 each 06/08/21 09:00 06/08/21 21:25 Vit A,C & F-Xwcgvm-Pfwxfqys 1 Each Tab PO 1 each BID TREVOR Administration Naloxone HCl 0.2 mg 06/07/21 21:47 Naloxone 0.4 Mg/Ml 1 Ml Vial IV Q2M PRN Opioid Reversal Ondansetron HCl 4 mg 06/07/21 21:47 Ondansetron 4 Mg/2 Ml Vial IVP Q8HR PRN Nausea And Vomiting Oxycodone/Acetaminophen 1 each 06/07/21 21:47 06/09/21 02:37 Oxycodone-Apap 5-325mg 1 Each Tab PO 1 each Q4HR PRN Administration Severe Pain Spironolactone 25 mg 06/08/21 09:00 06/08/21 08:58 Spironolactone 25 Mg Tab PO 25 mg DAILY TREVOR Administration Tramadol HCl 50 mg 06/07/21 23:19 06/08/21 02:12 Tramadol 50 Mg Tab PO 50 mg Q8HR PRN Administration Pain Intake and Output 06/08/21 06/09/21 06/09/21 22:59 06:59 14:59 Intake Total 160 Output Total 650 Balance 160 -650 Intake: Intake, IV Titration 160 Amount Sodium Chloride 0.9% 1, 160 000 ml @ 20 mls/hr IV . Q24H [facility] Rx#:[id number] Output: Urine 650 Other: Weight 102.058 kg 06/08/21 02:57 06/08/21 02:57
[2021-06-09] MEDS ORDERED: CAFFEINE CITRATE 60 MG/3 ML VIAL IV PRN (09:59)
[2021-06-09] MEDS ORDERED: AMINOPHYLLINE 500 MG/20 ML VIAL IV PRN (09:59)
[2021-06-09] MEDS: HEPARIN SODIUM,PORCINE/PF 5,000 UNIT/0.5 ML SYRINGE SQ SCH ×2 (10:07→21:54)
[2021-06-09] MEDS: METOPROLOL SUCCINATE (ER) 25 MG TAB.ER.24H PO SCH (10:08)
[2021-06-09] MEDS: MULTIVITAMINS, THERA 1 EACH TAB PO SCH (10:08)
[2021-06-09] MEDS: SPIRONOLACTONE 25 MG TAB PO SCH (10:08)
[2021-06-09] MEDS: VIT A,C & E-LUTEIN-MINERALS 1 EACH TAB PO SCH ×2 (10:09→21:54)
[2021-06-09] MEDS: AZITHROMYCIN 500 MG TAB PO SCH (10:09)
[2021-06-09 11:15] LABS: Glucose,Whole Blood 117 mg/dL (75-99)
[2021-06-09] MEDS: FUROSEMIDE 10 MG/ML 4 ML VIAL IV SCH ×2 (11:25→21:54)
[2021-06-09] MEDS: DULoxetine HCL 30 MG CAPSULE.DR PO SCH (11:30)
--- NOTE | 2021-06-09 12:32 | ECHOF ---
Referral Reason:re: LV function MEASUREMENTS -------- HEIGHT: 180.3 cm WEIGHT: 102.1 kg BP: RVIDd: 2.5 cm (< 3.3) IVSd: 1.1 cm (0.6 - 1.1) LVIDd: 5.0 cm (3.9 - 5.3) LVPWd: 1.2 cm (0.6 - 1.1) IVSs: 1.5 cm LVIDs: 3.2 cm LVPWs: 1.7 cm Ao Diam: 3.6 cm (2.0 - 3.7) AV Cusp: 2.6 cm (1.5 - 2.6) LA Diam: 3.4 cm (2.7 - 3.8) MV EXCURSION: 15.965 mm (> 18.000) MV EF SLOPE: 113 mm/s (70 - 150) EPSS: 0.8 cm MV E Kailash: 0.96 m/s MV DecT: 296 ms MV A Kailash: 0.79 m/s MV E/A Ratio: 1.22 RAP: 5.00 mmHg RVSP: 14.41 mmHg FINDINGS -------- Undetermined rhythm. This was a technically difficult study with suboptimal views. The left ventricular size is normal. Left ventricular wall thickness is normal. Overall left vent ricular systolic function is low-normal with, an EF between 50 - 55 %. The RV was not well visualized. The left atrial size is normal. The right atrium was not well visualized. Lumason used The aortic valve was not well visualized. The mitral valve was not well visualized. There is trace mitral regurgitation. The tricuspid valve appears structurally normal. Trace tricuspid regurgitation present. Right melissa tricular systolic pressure is normal at < 35 mmHg. There is no pulmonic regurgitation present. The aortic root size is normal. IVC Not well visulized. There is no pericardial effusion. CONCLUSIONS -------- 1. The left ventricular size is normal. 2. Left ventricular wall thickness is normal. 3. Overall left ventricular systolic function is low-normal with, an EF between 50 - 55 %. 4. There is trace mitral regurgitation. 5. Trace tricuspid regurgitation present. 6. There is no pericardial effusion. HEAD IRRIGATOR: Viky Rojo RDCS
--- NOTE | 2021-06-09 13:13 | PN ---
PROGRESS NOTE DATE OF SERVICE: 06/09/2021 This 66-year-old gentleman who was admitted with significant shortness of breath and chest pain is being closely monitored at this time. Multiple consultants and cardiology following the patient closely. A chest CT did not show any active pulmonary embolism. PHYSICAL EXAMINATION: Pulse 86, blood pressure 109/61, respirations 16. Chest: Bilateral scattered rhonchi and crackles. Lungs: Breathing efforts increased. Cardiovascular system. Abdomen: Soft. Legs: No edema. No swelling. LABS: Reviewed. ASSESSMENT: 1. Chronic obstructive pulmonary disease acute exacerbation. 2. Chest pain, possible unstable angina, possibly musculoskeletal. 3. History of congestive heart failure. 4. History of degenerative joint disease. RECOMMENDATIONS AND DISCUSSION: I recommend to continue current medications, bronchodilators, steroids. Closely follow with Cardiology and Pulmonology. Prognosis guarded. Discussed with patient. Continue symptomatic treatment. Further recommendations to follow. MMODL / IJN: [id number] /
--- NOTE | 2021-06-09 13:34 | P.PN ---
Subjective Progress Note Date: 06/09/21 Principal diagnosis: Shortness of breath This is 66-year-old male patient with a known history of chronic obstructive pulmonary disease with biapical scarring, Former smoker of 45 years however quit in 2019, hypertension, hyperlipidemia, depression, atrial fibrillation, systolic congestive heart failure, Herring's esophagus, macular degeneration, osteoarthritis. He was here April 2021 with Moraxella, Vanessa and Streptococcus pneumoniae in his sputum. He presented to the emergency room yesterday with a 2 day history of sharp stabbing pain in the middle of his chest. He stated it was worse with deep breathing. More constant and intermittent. He did do a breathing treatment at home without much improvement. He was having some palpitations. He also states he has had some increased swelling in his lower extremities. Chest x-ray reveals no active cardiopulmonary disease. EKG reveals sinus rhythm with nonspecific ST and T wave abnormalities. CT angiogram of the chest revealed no evidence of pulmonary embolism. No evidence of aortic dissection or aneurysm. Reticular nodular infiltrates in the lung apices are unchanged. White count 6.2. Hemoglobin 10.4. MCV 100.6. Sodium 129. Potassium 3.7. Bicarb 31. BUN 9. Creatinine 0.71. Troponins negative 3. C jeet virus by PCR not detected. He is seen today in consultation in the emergency department. Currently sitting up in the stretcher. Awake and alert in no acute distress. Maintaining O2 saturations in the mid 90s on room air. He's been afebrile. Hemodynamically stable. On 06/09/2021 patient is seen in follow-up. He is awake and alert, oriented 3, he is on room air with a pulse ox of 94%, lung sounds are diminished, with some mild expiratory wheezing on forced exhale maneuver, otherwise he states his breathing is comfortable, no increased dyspnea or cough. Vital signs have been stable overnight. He states he had a hard time sleeping last night related to increased pain in his bilateral knees. He had previously been seen by orthopedic surgery and was cleared by pulmonary service according to the patient for surgery. His troponins were negative 3, proBNP was 650. His labs show sodium of 129, potassium 3.7, CO2 is 31, BUN of 9 creatinine 0.71. White blood cell count 6.2, hemoglobin is 10.4. He currently remains on DuoNeb, Symbicort, he is on diuretics per cardiology recommendations with Lasix 40 mg every 12 hours, he is on Aldactone. Still has intermittent sharp chest discomfort. Echocardiogram showed preserved LV function with EF of 50-55%, trace mitral regurg, trace tricuspid regurg, no pericardial effusion. Objective - Vital Signs Vital signs: Vital Signs Temp 98.3 F 06/09/21 08:00 Pulse 73 06/09/21 11:52 Resp 16 06/09/21 11:24 BP 109/61 06/09/21 11:36 Pulse Ox 94 L 06/09/21 11:24 Intake & Output 06/08/21 06/09/21 06/09/21 18:59 06:59 18:59 Intake Total 160 Output Total 1050 Balance 160 -1050 Weight 102.058 kg Intake: Intake, IV Titration 160 Amount Sodium Chloride 0.9% 1, 160 000 ml @ 20 mls/hr IV . Q24H [facility] Rx#:[id number] Output: Urine 1050 - Exam GENERAL EXAM: Alert, very pleasant, 66-year-old white male on room air with pulse ox of 94% comfortable in no apparent distress. HEAD: Normocephalic/atraumatic. EYES: Normal reaction of pupils, equal size. Conjunctiva pink, sclera white. NOSE: Clear with pink turbinates. THROAT: No erythema or exudates. NECK: No masses, no JVD, no thyroid enlargement, no adenopathy. CHEST: No chest wall deformity. Symmetrical expansion. LUNGS: Equal air entry with expiratory wheezes with forced exhale maneuver CVS: Regular rate and rhythm, normal S1 and S2, no gallops, no murmurs, no rubs ABDOMEN: Soft, nontender. No hepatosplenomegaly, normal bowel sounds, no guarding or rigidity. EXTREMITIES: No clubbing, no edema, no cyanosis, 2+ pulses and upper and lower extremities. MUSCULOSKELETAL: Muscle strength and tone normal. SPINE: No scoliosis or deformity SKIN: No rashes CENTRAL NERVOUS SYSTEM: Alert and oriented -3. No focal deficits, tone is normal in all 4 extremities. PSYCHIATRIC: Alert and oriented -3. Appropriate affect. Intact judgment and insight. - Labs CBC & Chem 7: 06/08/21 02:57 06/08/21 02:57 Labs: Abnormal Lab Results - Last 24 Hours (Table) 06/08/21 06/08/21 06/09/21 Range/Units 16:47 20:59 02:41 POC Glucose (mg/dL) 158 H 154 H 133 H (75-99) mg/dL 06/09/21 06/09/21 Range/Units 09:12 11:15 POC Glucose (mg/dL) 113 H 117 H (75-99) mg/dL Assessment and Plan Plan: Assessment: #1. Atypical sharp chest pain, pulmonary embolism was ruled out, thoracic aneurysm dissection was ruled out, troponins were negative 3 #2. Lower extremity edema and weakness #3. Osteoarthritis in bilateral knees #4. History of systolic CHF, currently most recent echocardiogram shows improved EF #5. History of COPD currently inactive and stable, with known history of apical scarring #6. 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 History of COVID-19 infection status post monoclonal antibody transfusion, not vaccinated, required hospitalization in February 2021 #8. History of A. fib currently in sinus rhythm #9. History of Herring's esophagus #10. History of macular degeneration #11. Previous history of streptococcal pneumonia #12. Chronic anemia Plan: Continue Symbicort and DuoNeb treatments COPD seems to be stable Cardiology recommendations Stable for discharge home when cleared by medicine and cardiology I have personally seen and examined the patient, performed the documentation and the assessment and plan as written. Number of minutes spent on the visit: [10] Time with Patient: Less than 30
[2021-06-09 16:04] LABS: Glucose,Whole Blood 111 mg/dL (75-99)
[2021-06-09 20:29] LABS: Glucose,Whole Blood 128 mg/dL (75-99)
[2021-06-09] MEDS: ATORVASTATIN 20 MG TAB PO SCH (21:54)
[2021-06-09] MEDS: LATANOPROST 0.005% OPHTH DROPS 2.5 ML BTL LEFT EYE SCH (21:55)
[2021-06-10] MEDS: oxyCODONE-APAP 5-325MG 1 EACH TAB PO PRN ×3 (02:59→17:16)
[2021-06-10] MEDS: HYDROmorphone 0.5 MG/0.5 ML SYRINGE IVP PRN ×3 (05:36→21:16)
[2021-06-10 06:53] LABS: Glucose,Whole Blood 110 mg/dL (75-99)
[2021-06-10] MEDS: INSULIN ASPART (NovoLOG) 100 UNIT/ML VIAL SQ SCH ×4 (07:00→20:58)
[2021-06-10] MEDS: HEPARIN SODIUM,PORCINE/PF 5,000 UNIT/0.5 ML SYRINGE SQ SCH (07:32)
[2021-06-10] MEDS: DULoxetine HCL 30 MG CAPSULE.DR PO SCH (07:32)
[2021-06-10] MEDS: MULTIVITAMINS, THERA 1 EACH TAB PO SCH (07:32)
[2021-06-10] MEDS: METOPROLOL SUCCINATE (ER) 25 MG TAB.ER.24H PO SCH (07:32)
[2021-06-10] MEDS: SPIRONOLACTONE 25 MG TAB PO SCH (07:32)
[2021-06-10] MEDS: VIT A,C & E-LUTEIN-MINERALS 1 EACH TAB PO SCH ×2 (07:32→21:15)
[2021-06-10] MEDS ORDERED: REGADENOSON 0.4 MG/5 ML SYRINGE IV PRN (08:00)
[2021-06-10] MEDS ORDERED: methylPREDNISolone ACETATE 40 MG/ML 1 ML VIAL INTRAARTIC STA (08:05)
[2021-06-10] MEDS ORDERED: LIDOCAINE 2% INJ 20 MG/ML (20 ML MDV) SQ STA (08:05)
[2021-06-10] MEDS: ALBUTEROL NEBULIZED 2.5 MG/3 ML INHALATION SCH ×5 (08:26→19:27)
[2021-06-10] MEDS: IPRATROPIUM-ALBUTEROL 3 ML NEB INHALATION SCH ×4 (08:29→19:27)
[2021-06-10] MEDS: SYMBICORT 80-4.5 MCG INHALER INHALATION SCH ×3 (08:29→19:29)
[2021-06-10] MEDS: FUROSEMIDE 10 MG/ML 4 ML VIAL IV SCH ×2 (08:49→21:15)
[2021-06-10] MEDS ORDERED: AMINOPHYLLINE 500 MG/20 ML VIAL IV PRN (09:00)
[2021-06-10] MEDS ORDERED: CAFFEINE CITRATE 60 MG/3 ML VIAL IV PRN (09:00)
[2021-06-10] MEDS ORDERED: REGADENOSON 0.4 MG/5 ML SYRINGE IV ONE (11:30)
--- NOTE | 2021-06-10 12:16 | P.PN ---
Subjective Progress Note Date: 06/10/21 This is a pleasant 66-year-old with past medical history significant for COPD, emphysema, Paroxysmal atrial fibrillation, osteoarthritis, hyperlipidemia, and congestive heart failure. He follows with Dr. Holly in the office. He presented with 2 days of chest pain as well as shortness breath. He felt like it was sharp and not necessarily associated with any movement however did appear worse when he was doing things. He is not very active secondary to knee pain and walks with a walker however states when he was walking around and would become somewhat worse. Denies any associated shortness of breath with the chest pain however has been having worsened shortness breath as well as lower extremity e shahla or last few days as well. He does have chronic orthopnea which he attributes to COPD. He also states he was feeling his heart racing however on presentation was noted be in sinus rhythm. He believes he had a recent stress test aproximally 6 months ago which was normal and no history of any heart catheterization. Cardiogram with Doppler study done this admission to the low- normal LV systolic function with an ejection fraction between 50-55% with no evidence of segmental wall motion abnormalities and no significant valvular abnormalities. This morning patient is feeling well. He is scheduled to undergo Lexiscan MPI. He had an episode of rapid heartbeat through the night with some chest discomfort but this has since resolved. After reviewing the rhythm strips it appears there is evidence of brief PAF. Objective - Vital Signs Vital signs: Vital Signs Temp 97.8 F 06/10/21 07:09 Pulse 90 06/10/21 08:37 Resp 17 06/10/21 07:09 BP 109/52 06/10/21 07:09 Pulse Ox 95 06/10/21 07:09 Intake & Output 06/09/21 06/10/21 06/10/21 18:59 06:59 18:59 Intake Total 1080 Output Total 1885 1500 800 Balance -805 1500 -800 Intake: Oral 1080 Output: Urine 188 1500 800 - Exam PHYSICAL EXAMINATION: HEENT: Head is atraumatic, normocephalic. Pupils equal, round. Neck is supple. There is no elevated jugular venous pressure. HEART EXAMINATION: Heart sounds regular, S1 and S2 normal. No murmur or gallop heard. CHEST EXAMINATION: Lungs reveal diminished air entry bilaterally with expiratory wheezing throughout. No chest wall tenderness is noted on palpation or with deep breathing. ABDOMEN: Soft, nontender. Bowel sounds are heard. No organomegaly noted. EXTREMITIES: 2+ peripheral pulses with evidence of trace peripheral edema and no calf tenderness noted. NEUROLOGIC patient is awake, alert and oriented x3. . - Labs CBC & Chem 7: 06/08/21 02:57 06/08/21 02:57 Labs: Abnormal Lab Results - Last 24 Hours (Table) 06/09/21 06/09/21 06/09/21 Range/Units 11:15 16:03 20:27 POC Glucose (mg/dL) 117 H 111 H 128 H (75-99) mg/dL 06/10/21 Range/Units 06:50 POC Glucose (mg/dL) 110 H (75-99) mg/dL Assessment and Plan Assessment: 1. Atypical chest pain however some times associated with exertion he will over last 2 days 2. Acute on chronic diastolic heart failure 3. Acute on chronic respiratory failure chronic COPD however appears volume overloaded and some component of heart failure 4. Palpitations 5. History of paroxysmal atrial fibrillation, brief, recurrent, not anticoagulated Plan: From cardiology's perspective we will add Eliquis. Continue to monitor heart rates and increase Metoprolol to 50 mg daily if necessary. Further recom mendations depending on the results of the Lexiscan MPI. LEAD MASSAGE THERAPIST note has been reviewed, I agree with a documented findings and plan of care. Patient was seen and examined.
--- NOTE | 2021-06-10 13:08 | NM ---
EXAMINATION TYPE: NM stress lexiscan cardiolite DATE OF EXAM: 06/10/2021 COMPARISON: CTA chest 3 days ago. HISTORY: Chest pain and difficulty breathing. History of hypercholesterolemia and COPD. TECHNIQUE: After the intravenous administration of 10.1 mCi Tc 99m Sestamibi - Cardiolite resting SP ECT images acquired 95 minutes post injection. The patient received 0.4mg Lexiscan, 25.6 mCi Tc 99m Sestamibi - Stress images obtained [address] injection FINDINGS: Review of stress and rest SPECT images demonstrates poor uptake in the inferior left ventricular wall slightly more prominent on rest images versus stress images towards the apex. Acute ischemia at this level cannot be excluded. This is typical location of attenuation artifact from diaphragm however. G ated analysis shows satisfactory wall motion with estimated left ventricular ejection fraction of 66% . IMPRESSION: As above. Acute ischemia inferior wall towards the apex can't be excluded on this study. The need to further investigated with direct catheter angiogram should be based on clinical and EKG c orrelation.
--- NOTE | 2021-06-10 13:26 | EST ---
EXERCISE STRESS AGE: @@ SEX: @@ HT: @@ WT: @@ PROTOCOL: @@ STAGE: @@ DURATION OF EXERCISE: @@ HEART RATE REST: @@ BLOOD PRESSURE REST: @@ MAXIMUM HEART RATE ACHIEVED: @@ MAXIMUM BLOOD PRESSURE: @@ 85% MPHR: @@ 100% MPHR: @@ METS: @@ INDICATIONS: @@ CLINICAL INFORMATION: Baseline rhythm is sinus mechanism, rate of 95, normal axis and intervals. Baseline blood pressure 110/64 mmHg. Patient received an injection of Lexiscan. Electrocardiographic monitoring revealed occasional PVCs. There was no evidence of diagnostic ischemic ST deviation. Cardiolite was injected per protocol. CONCLUSION: 1. Nondiagnostic electrocardiograph stress testing. 2. Nuclear images will be reported separately. MMODL / IJN: [id number] /
--- NOTE | 2021-06-10 13:36 | P.CNOR ---
History of Present Illness - [facility] Consult date: 06/10/21 Consult reason: joint pain (left knee pain) History of present illness: this is a 66-year-old male who is well-known to us with history of severe bilateral knee osteoarthritis. He has been scheduled for total knee replacement in the past which has been canceled secondary to multiple medicalissues. The patient has had several admissions recently for pulmonary and cardiac problems. He is readmitted with cardiac complaints. He continues to have knee pain and difficulty ambulating. His main complaint today is left knee pain and swelling. We're consulted for orthopedic evaluation. Past Medical History Past Medical History: Atrial Fibrillation, Heart Failure, COPD, Eye Disorder, Hyperlipidemia, Osteoarthritis (OA), Pneumonia Additional Past Medical History / Comment(s): Pt recently admtiited to [facility] on 05/07/21 with acute exacerbation COPD/hyponatremia/L knee effusion. Other hx: Paroxysmal Afib, chronic systolic chf, bronchitectasis/bronchitis, Herring's esophagus, hiatal hernia, anemia, rectus sheath hematoma, L eye glaucoma, chr onic low back and L knee pain, does not tolerate statins. History of Any Multi-Drug Resistant Organisms: None Reported Past Surgical History: Orthopedic Surgery Additional Past Surgical History / Comment(s): LT SHOULDER sx in 2009 with hardware., bronchoscopy, EGDs Past Anesthesia/Blood Transfusion Reactions: No Reported Reaction Smoking Status: Former smoker - Past Family History Daughter(s) Family Medical History: No Reported History Father Family Medical History: No Reported History Additional Family Medical History / Comment(s): Father was healthy Mother Family Medical History: No Reported History Additional Family Medical History / Comment(s): Mother was healthy. Medications and Allergies Home Medications Medication Instructions Recorded Confirmed Type Latanoprost [Xalatan 0.005%] 1 drop LEFT EYE HS 10/31/17 06/07/21 History Vit C/E/Zn/Coppr/Lutein/Zeaxan 1 tab PO BID 08/22/19 06/07/21 History [Preservision Areds 2 Softgel] Spironolactone [Aldactone] 25 mg PO DAILY 30 Days #30 tab 09/12/19 06/07/21 Rx Albuterol Nebulized [Ventolin 2.5 mg INHALATION RT-QID PRN 08/13/20 06/07/21 History Nebulized] Metoprolol Succinate (ER) [Toprol 25 mg PO DAILY 02/09/21 06/07/21 History XL] Multivit-Min/Folic/Vit K/Lycop 1 tab PO DAILY 02/09/21 06/07/21 History [Men's Multivitamin Tablet] Albuterol Sulfate [Proventil Hfa] 2 puff INHALATION RT-QID PRN 03/06/21 06/07/21 History Budesonide/Formoterol Fumarate 2 puff INHALATION RT-BID 03/06/21 06/07/21 History [Symbicort 80-4.5 Mcg Inhaler] Rosuvastatin Calcium [Crestor] 10 mg PO HS 03/06/21 06/07/21 History DULoxetine HCL [Cymbalta] 30 mg PO DAILY 05/07/21 06/07/21 History traMADol HCL [Ultram] 50 mg PO Q8HR PRN 30 Days #90 tab 06/01/21 06/07/21 Rx Furosemide [Lasix] 40 mg PO DAILY 06/07/21 06/07/21 History Allergies Allergy/AdvReac Type Severity Reaction Status Date / Time aspirin Allergy Rash/Hives Verified 06/07/21 21:53 Physical Examination this is a pleasant 58-year-old male in no acute distress. He is alert and oriented 3. Exam of the left knee reveals a 1-2+ effusion. There is no erythema. He has a flexion contracture of about 10-15. There is pain with palpation about the medial and lateral joint line. He has no calf pain or tenderness with palpation. He has full foot and ankle motion without difficulty or pain. Neurovascular status to the lower extremity is intact. Results - Labs Labs: Abnormal Lab Results - Last 24 Hours (Table) 06/09/21 06/09/21 06/09/21 Range/Units 09:12 11:15 16:03 POC Glucose (mg/dL) 113 H 117 H 111 H (75-99) mg/dL 06/09/21 06/10/21 Range/Units 20:27 06:50 POC Glucose (mg/dL) 128 H 110 H (75-99) mg/dL H & H 06/07/21 06/08/21 Range/Units 19:53 02:57 Hgb 10.3 L D 10.4 L (13.0-17.5) gm/dL Hct 30.1 L 30.8 L (39.0-53.0) % Coagulation 06/07/21 Range/Units 19:53 INR 0.9 (<1.2) Result Diagrams: 06/08/21 02:57 06/08/21 02:57 Assessment and Plan (1) Chest pain Current Visit: No Status: Acute Code(s): R07.9 - CHEST PAIN, UNSPECIFIED SNOMED Code(s): 37813307 (2) Degenerative arthritis of left knee Current Visit: No Status: Acute Code(s): M17.12 - UNILATERAL PRIMARY OSTEO ARTHRITIS, LEFT KNEE SNOMED Code(s): 375771044008621 (3) Shortness of breath Current Visit: No Status: Acute Code(s): R06.02 - SHORTNESS OF BREATH SNOMED Code(s): 208147546 Plan: the clinical findings of been discussed with the patient. He has elected to proceed with the aspiration and injection with cortisone today. Using sterile technique the left knee is aspirated. I obtained approximately 20 cc of clear joint fluid. The knee was injected with 40 mg of Depo-Medrol mixed with 2% lidocaine. The patient tolerated the aspiration and injection well. He is to follow up as needed with Dr. Crews.
[2021-06-10 14:01] LABS: Glucose,Whole Blood 160 mg/dL (75-99)
[2021-06-10 16:55] LABS: Glucose,Whole Blood 146 mg/dL (75-99)
[2021-06-10 20:48] LABS: Glucose,Whole Blood 120 mg/dL (75-99)
[2021-06-10] MEDS: ATORVASTATIN 20 MG TAB PO SCH (21:15)
[2021-06-10] MEDS: APIXABAN 5 MG TAB PO SCH (21:15)
[2021-06-10] MEDS: LATANOPROST 0.005% OPHTH DROPS 2.5 ML BTL LEFT EYE SCH (21:16)
[2021-06-10] MEDS: SODIUM CHLORIDE 0.9% 1,000 ML IV SCH (21:16)
[2021-06-11] MEDS: oxyCODONE-APAP 5-325MG 1 EACH TAB PO PRN ×2 (00:50→09:45)
[2021-06-11 02:48] LABS: Glucose,Whole Blood 140 mg/dL (75-99)
[2021-06-11] MEDS: HYDROmorphone 0.5 MG/0.5 ML SYRINGE IVP PRN ×2 (04:00→21:10)
[2021-06-11 07:11] LABS: Glucose,Whole Blood 108 mg/dL (75-99)
[2021-06-11] MEDS: SYMBICORT 80-4.5 MCG INHALER INHALATION SCH ×2 (07:40→20:12)
[2021-06-11] MEDS: IPRATROPIUM-ALBUTEROL 3 ML NEB INHALATION SCH ×4 (07:40→20:12)
[2021-06-11] MEDS: INSULIN ASPART (NovoLOG) 100 UNIT/ML VIAL SQ SCH ×4 (09:38→20:41)
[2021-06-11] MEDS: SPIRONOLACTONE 25 MG TAB PO SCH (09:44)
[2021-06-11] MEDS: METOPROLOL SUCCINATE (ER) 50 MG TAB.ER.24H PO SCH (09:44)
[2021-06-11] MEDS: VIT A,C & E-LUTEIN-MINERALS 1 EACH TAB PO SCH ×2 (09:44→21:09)
[2021-06-11] MEDS: APIXABAN 5 MG TAB PO SCH ×2 (09:44→21:09)
[2021-06-11] MEDS: DULoxetine HCL 30 MG CAPSULE.DR PO SCH (09:44)
[2021-06-11] MEDS: FUROSEMIDE 40 MG TAB PO SCH (09:44)
[2021-06-11] MEDS: MULTIVITAMINS, THERA 1 EACH TAB PO SCH (09:44)
[2021-06-11] MEDS: FUROSEMIDE 10 MG/ML 4 ML VIAL IV SCH (10:05)
[2021-06-11] MEDS: METOPROLOL SUCCINATE (ER) 25 MG TAB.ER.24H PO SCH (10:05)
[2021-06-11 11:19] LABS: African American GFR (CKD) >90 (>60 ml/min/1.73 sqM); Anion Gap 4 mmol/L; Blood Urea Nitrogen 14 mg/dL (9-20); Calcium 8.7 mg/dL (8.4-10.2); Carbon Dioxide 33 mmol/L (22-30); Chloride 94 mmol/L (98-107); Glucose 98 mg/dL (74-99); Non-African American GFR(CKD) >90 (>60 ml/min/1.73 sqM); Potassium 4.3 mmol/L (3.5-5.1); Sodium 131 mmol/L (137-145)
--- NOTE | 2021-06-11 11:34 | P.PN ---
Subjective This is a pleasant 66-year-old with past medical history significant for COPD, emphysema, paroxysmal atrial fibrillation not on anti-coagulation, os teoarthritis, hyperlipidemia, and congestive heart failure. He follows with Dr. Holly in the office. He presented with 2 days of chest pain as well as shortness breath. He felt like it was sharp and not necessarily associated with any movement however did appear worse when he was doing things. He is not very active secondary to knee pain and walks with a walker however states when he was walking around and would become somewhat worse. Denies any associated shortness of breath with the chest pain however has been having worsened shortness breath as well as lower extremity edema or last few days as well. He does have chronic orthopnea which he attributes to COPD. He also states he was feeling his heart racing however on presentation was noted be in sinus rhythm. He believes he had a recent stress test approximately 6 months ago which was normal and no history of any heart catheterization. Echoardiogram revealed low-normal LV systolic function with an ejection fraction between 50-55% with no evidence of segmental wall motion abnormalities and no significant valvular abnormalities. This morning patient is feeling well. He is scheduled to undergo Lexiscan MPI. He had an episode of rapid heartbeat through the night with some chest discomfort but this has since resolved. After reviewing the rhythm strips it appears there is evidence of brief PAF. 06/11/2021 Pt seen and examined sitting up in bed in no acute distress. He is currently in SR with rates in the 90s. He is frustrated with his ongoing knee pain. He has not had chest pain or shortness of breath. He was started on eliquis and has had no issues bleeding. Heart rates have been stable on telemetry. Lexiscan stress test revealed EF 66% with ischemia noted along the inferior wall towards the apex. Yesterday he underwent aspiration of the left knee. 20 cc was aspirated. He will follow up with Dr. Crews as an outpatient. GENERAL: Well-appearing, well-nourished and in no acute distress. NECK: Supple without JVD or thyromegaly. LUNGS: Expiratory wheezes noted, no rhonchi or rales. Auscultated anteriorly only as he would not sit forward HEART: Regular rate and rhythm without murmurs, rubs or gallops. S1 and S2 heard. EXTREMITIES: Normal range of motion, no edema. No clubbing or cyanosis. Peripheral pulses intact. ASSESSMENT Chest pain Acute on chronic diastolic heart failure, improving Acute on chronic respiratory failure secondary to COPD Paroxysmal atrial fibrillation, currently maintaining sinus rhythm initiated on a liquid PLAN Increase toprol to 50 mg daily for optimal heart rate control. Change lasix to PO at home dose of 40 mg daily. Stress test abnormality reviewed and discussed in detail with the patient. He is chest pain free and normal troponins. He can be discharged to [facility] for rehabilitation and follow up with Dr. Holly for further treatment. Nurse Practitioner note has been reviewed, I agree with a documented findings and plan of care. Patient was seen and examined. Objective - Vital Signs Vital signs: Vital Signs Temp 98.6 F 06/11/21 02:00 Pulse 92 06/11/21 07:52 Resp 17 06/11/21 02:00 BP 116/68 06/11/21 02:00 Pulse Ox 94 L 06/11/21 02:00 Intake & Output 06/10/21 06/11/21 06/11/21 18:59 06:59 18:59 Output Total 3400 2920 Balance -3400 -2920 Weight 102.06 kg Output: Urine 3400 2920 - Labs CBC & Chem 7: 06/08/21 02:57 06/11/21 10:25 Labs: Abnormal Lab Results - Last 24 Hours (Table) 06/10/21 06/10/21 06/10/21 Range/Units 13:59 16:53 20:47 POC Glucose (mg/dL) 160 H 146 H 120 H (75-99) mg/dL 06/11/21 06/11/21 Range/Units 02:47 07:09 POC Glucose (mg/dL) 140 H 108 H (75-99) mg/dL
[2021-06-11 11:37] LABS: Glucose,Whole Blood 107 mg/dL (75-99)
[2021-06-11 16:40] LABS: Glucose,Whole Blood 104 mg/dL (75-99)
[2021-06-11 20:35] LABS: Glucose,Whole Blood 127 mg/dL (75-99)
--- NOTE | 2021-06-11 20:43 | P.PN ---
Subjective Progress Note Date: 06/10/21 Principal diagnosis: Acute exacerbation COPD Paroxysmal atrial fibrillation Chest pain; ACS ruled out 66-year-old male patient with a known history of chronic obstructive pulmonary disease with biapical scarring, Former smoker of 45 years however quit in 2019, hypertension, hyperlipidemia, depression, atrial fibrillation, systolic congestive heart failure, Herring's esophagus, macular degeneration, osteoarthritis. He was here April 2021 with Moraxella, Vanessa and Streptococcus pneumoniae in his sputum. He presented to the emergency room yesterday with a 2 day history of sharp stabbing pain in the middle of his chest. He stated it was worse with deep breathing. More constant and intermittent. He did do a breathing treatment at home without much improvement. He was having some palpitations. He also states he has had some increased swelling in his lower extremities. Chest x-ray reveals no active cardiopulmonary disease. EKG reveals sinus rhythm with nonspecific ST and T wave abnormalities. CT angiogram of the chest revealed no evidence of pulmonary embolism. No evidence of aortic dissection or aneurysm. Reticular nodular infiltrates in the lung apices are unchanged. White count 6.2. Hemoglobin 10.4. MCV 100.6. Sodium 129. P otassium 3.7. Bicarb 31. BUN 9. Creatinine 0.71. Troponins negative 3. Clarke virus by PCR not detected. Objective - Vital Signs Vital signs: Vital Signs Temp 97.8 F 06/10/21 07:09 Pulse 90 06/10/21 08:37 Resp 17 06/10/21 07:09 BP 109/52 06/10/21 07:09 Pulse Ox 95 06/10/21 07:09 Intake & Output 06/09/21 06/10/21 06/10/21 18:59 06:59 18:59 Intake Total 1080 Output Total 1885 1500 800 Balance -805 1500 -800 Weight 102.06 kg Intake: Oral 1080 Output: Urine 1885 1500 800 - Exam - Constitutional General appearance: Present: average body habitus, cooperative, no acute distress - EENT Eyes: Present: anicteric sclerae, EOMI, PERRLA, normal appearance ENT: Present: hearing grossly normal, normal oropharynx Ears: bilateral: normal - Neck Neck: Present: normal ROM. Absent: lymphadenopathy, rigidity, thyromegaly Carotids: negative: bruit present Thyroid: bilateral: normal size, negative: enlarged, nodule - Respiratory Respiratory: bilateral: CTA, negative: rales, rhonchi, wheezing - Cardiovascular Rhythm: regular Heart sounds: normal: S1, S2 Abnormal Heart Sounds: Absent: systolic murmur, diastolic murmur - Gastrointestinal General gastrointestinal: Present: normal bowel sounds, soft. Absent: distended, organomegaly, tenderness - Genitourinary Genitourinary Comment(s): deferred - Integumentary Integumentary: Present: normal turgor. Absent: jaundiced, rash, ulcer - Neurologic Neurologic: Present: CNII-XII intact. Absent: focal deficits - Musculoskeletal Musculoskeletal: Present: gait normal, strength equal bilaterally - Psychiatric Psychiatric: Present: A&O x's 3, appropriate affect, intact judgment & insight - Labs CBC & Chem 7: 06/08/21 02:57 06/11/21 10:25 Labs: Abnormal Lab Results - Last 24 Hours (Table) 06/09/21 06/09/21 06/10/21 Range/Units 16:03 20:27 06:50 POC Glucose (mg/dL) 111 H 128 H 110 H (75-99) mg/dL Assessment and Plan Assessment: 1. Chest pain; acute coronary syndrome ruled out - PE and thoracic aneurysm dissection is ruled out - Fleming has been evaluated by cardiology and recommended nuclear stress testing which is pending 2. Acute exacerbation COPD; continue with DuoNeb nebulizer treatments and home inhaler therapy in form of Symbicort 3. Paroxysmal atrial fibrillation; remains rate controlled on metoprolol; anticoagulation is added 4. Acute on chronic diastolic CHF; continue with current diuretic therapy; clinically improving 5. Weakness/debility; patient has been evaluated by PT/OT and is recommended skilled rehab DVT prophylaxis; SCDs/systemic anticoagulation CODE STATUS; full code
--- NOTE | 2021-06-11 20:45 | P.PN ---
Subjective Progress Note Date: 06/11/21 Principal diagnosis: Acute exacerbation COPD Paroxysmal atrial fibrillation Chest pain; ACS ruled out 66-year-old male patient with a known history of chronic obstructive pulmonary disease with biapical scarring, Former smoker of 45 years however quit in 2019, hypertension, hyperlipidemia, depression, atrial fibrillation, systolic congestive heart failure, Herring's esophagus, macular degeneration, osteoarthritis. He was here April 2021 with Moraxella, Vanessa and Streptococcus pneumoniae in his sputum. He presented to the emergency room yesterday with a 2 day history of sharp stabbing pain in the middle of his chest. He stated it was worse with deep breathing. More constant and intermittent. He did do a breathing treatment at home without much improvement. He was having some palpitations. He also states he has had some increased swelling in his lower extremities. Chest x-ray reveals no active cardiopulmonary disease. EKG reveals sinus rhythm with nonspecific ST and T wave abnormalities. CT angiogram of the chest revealed no evidence of pulmonary embolism. No evidence of aortic dissection or aneurysm. Reticular nodular infiltrates in the lung apices are unchanged. White count 6.2. Hemoglobin 10.4. MCV 100.6. Sodium 129. P otassium 3.7. Bicarb 31. BUN 9. Creatinine 0.71. Troponins negative 3. Clarke virus by PCR not detected. 06/11/2021 Patient is seen and evaluated in room at bedside; denies any chest pain; continues to complain of knee pain; patient is status post aspiration of left knee yesterday with 20 mL of fluid aspirated; orthopedic is recommending follow- up as an outpatient Vital signs are reviewed and stable with temperature 98.6, pulse 82, respirations 17 and blood pressure 116/68 Stress test is reviewed by cardiology and no further inpatient testing is recommended; Lasix has been switched to oral daily dose of 40 mg daily; Toprol increased to 50 mg daily for improved heart rate control Patient to be discharged to skilled rehab once arrangements are made Objective - Vital Signs Vital signs: Vital Signs Temp 98.4 F 06/11/21 19:11 Pulse 90 06/11/21 20:22 Resp 16 06/11/21 19:11 BP 137/81 06/11/21 19:11 Pulse Ox 96 06/11/21 19:11 Intake & Output 06/11/21 06/11/21 06/12/21 06:59 18:59 06:59 Intake Total 1430 Output Total 2920 1000 200 Balance -2920 430 -200 Intake: Intake, IV Titration 160 Amount Sodium Chloride 0.9% 1, 160 000 ml @ 20 mls/hr IV . Q24H [facility] Rx#:[id number] Oral 1270 Output: Urine 2920 1000 200 Other: # Bowel Movements 2 - Exam - Constitutional General appearance: Present: average body habitus, cooperative, no acute distress - EENT Eyes: Present: anicteric sclerae, EOMI, PERRLA, normal appearance ENT: Present: hearing grossly normal, normal oropharynx Ears: bilateral: normal - Neck Neck: Present: normal ROM. Absent: lymphadenopathy, rigidity, thyromegaly Carotids: negative: bruit present Thyroid: bilateral: normal size, negative: enlarged, nodule - Respiratory Respiratory: bilateral: CTA, negative: rales, rhonchi, wheezing - Cardiovascular Rhythm: regular Heart sounds: normal: S1, S2 Abnormal Heart Sounds: Absent: systolic murmur, diastolic murmur - Gastrointestinal General gastrointestinal: Present: normal bowel sounds, soft. Absent: distended, organomegaly, tenderness - Genitourinary Genitourinary Comment(s): deferred - Integumentary Integumentary: Present: normal turgor. Absent: jaundiced, rash, ulcer - Neurologic Neurologic: Present: CNII-XII intact. Absent: focal deficits - Musculoskeletal Musculoskeletal: Present: gait normal, strength equal bilaterally - Psychiatric Psychiatric: Present: A&O x's 3, appropriate affect, intact judgment & insight - Labs CBC & Chem 7: 06/08/21 02:57 06/11/21 10:25 Labs: Abnormal Lab Results - Last 24 Hours (Table) 06/10/21 06/11/21 06/11/21 Range/Units 20:47 02:47 07:09 Sodium (137-145) mmol/L Chloride (98-107) mmol/L Carbon Dioxide (22-30) mmol/L POC Glucose (mg/dL) 120 H 140 H 108 H (75-99) mg/dL 06/11/21 06/11/21 06/11/21 Range/Units 10:25 11:36 16:38 Sodium 131 L (137-145) mmol/L Chloride 94 L (98-107) mmol/L Carbon Dioxide 33 H (22-30) mmol/L POC Glucose (mg/dL) 107 H 104 H (75-99) mg/dL 06/11/21 Range/Units 20:34 Sodium (137-145) mmol/L Chloride (98-107) mmol/L Carbon Dioxide (22-30) mmol/L POC Glucose (mg/dL) 127 H (75-99) mg/dL Assessment and Plan Assessment: 1. Chest pain; acute coronary syndrome ruled out - PE and thoracic aneurysm dissection is ruled out - Fleming has been evaluated by cardiology and recommended nuclear stress testing which is pending 2. Acute exacerbation COPD; continue with DuoNeb nebulizer treatments and home inhaler therapy in form of Symbicort 3. Paroxysmal atrial fibrillation; remains rate controlled on metoprolol; anticoagulation is added 4. Acute on chronic diastolic CHF; continue with current diuretic therapy; clinically improving 5. Weakness/debility; patient has been evaluated by PT/OT and is recommended skilled rehab DVT prophylaxis; SCDs/systemic anticoagulation CODE STATUS; full code
[2021-06-11] MEDS: ATORVASTATIN 20 MG TAB PO SCH (21:09)
[2021-06-11] MEDS: LATANOPROST 0.005% OPHTH DROPS 2.5 ML BTL LEFT EYE SCH (21:09)
[2021-06-11] MEDS: SODIUM CHLORIDE 0.9% 1,000 ML IV SCH (21:10)
[2021-06-12] MEDS: oxyCODONE-APAP 5-325MG 1 EACH TAB PO PRN ×3 (00:34→15:18)
[2021-06-12] MEDS ORDERED: KETOROLAC 15 MG/ML 1 ML VIAL IVP STA (01:07)
[2021-06-12 02:16] LABS: Glucose,Whole Blood 111 mg/dL (75-99)
[2021-06-12] MEDS: HYDROmorphone 0.5 MG/0.5 ML SYRINGE IVP PRN ×2 (06:06→20:28)
[2021-06-12 06:59] LABS: Glucose,Whole Blood 103 mg/dL (75-99)
[2021-06-12] MEDS: INSULIN ASPART (NovoLOG) 100 UNIT/ML VIAL SQ SCH ×4 (07:04→20:28)
[2021-06-12] MEDS: METOPROLOL SUCCINATE (ER) 50 MG TAB.ER.24H PO SCH (08:06)
[2021-06-12] MEDS: MULTIVITAMINS, THERA 1 EACH TAB PO SCH (08:06)
[2021-06-12] MEDS: FUROSEMIDE 40 MG TAB PO SCH (08:06)
[2021-06-12] MEDS: DULoxetine HCL 30 MG CAPSULE.DR PO SCH (08:06)
[2021-06-12] MEDS: SPIRONOLACTONE 25 MG TAB PO SCH (08:06)
[2021-06-12] MEDS: APIXABAN 5 MG TAB PO SCH ×2 (08:06→20:16)
[2021-06-12] MEDS: VIT A,C & E-LUTEIN-MINERALS 1 EACH TAB PO SCH ×2 (08:06→20:16)
[2021-06-12] MEDS: SYMBICORT 80-4.5 MCG INHALER INHALATION SCH ×2 (08:12→20:25)
[2021-06-12] MEDS: IPRATROPIUM-ALBUTEROL 3 ML NEB INHALATION SCH ×4 (08:12→20:23)
--- NOTE | 2021-06-12 10:34 | P.PN ---
Subjective This is a pleasant 66-year-old with past medical history significant for COPD, emphysema, paroxysmal atrial fibrillation not on anti-coagulation, os teoarthritis, hyperlipidemia, and congestive heart failure. He follows with Dr. Holly in the office. He presented with 2 days of chest pain as well as shortness breath. He felt like it was sharp and not necessarily associated with any movement however did appear worse when he was doing things. He is not very active secondary to knee pain and walks with a walker however states when he was walking around and would become somewhat worse. Denies any associated shortness of breath with the chest pain however has been having worsened shortness breath as well as lower extremity edema or last few days as well. He does have chronic orthopnea which he attributes to COPD. He also states he was feeling his heart racing however on presentation was noted be in sinus rhythm. He believes he had a recent stress test approximately 6 months ago which was normal and no history of any heart catheterization. Echoardiogram revealed low-normal LV systolic function with an ejection fraction between 50-55% with no evidence of segmental wall motion abnormalities and no significant valvular abnormalities. This morning patient is feeling well. He is scheduled to undergo Lexiscan MPI. He had an episode of rapid heartbeat through the night with some chest discomfort but this has since resolved. After reviewing the rhythm strips it appears there is evidence of brief PAF. 06/12/2021 Patient seen and examined sitting up in bed in no acute distress. He described an episode of chest discomfort last night that woke him from sleep. He said it was a sharp pain in the midsternal region that was exacerbated by deep inspiration. He was given Toradol and his pain subsided. EKG reviewed, no acute ST or T wave abnormalities noted and he is in sinus rhythm. Blood pressure 119/64 heart rate 88 afebrile and maintaining oxygen saturation on room air. GENERAL: Well-appearing, well-nourished and in no acute distress. NECK: Supple without JVD or thyromegaly. LUNGS: Expiratory wheezes noted, no rhonchi or rales. Auscultated anteriorly only as he would not sit forward HEART: Regular rate and rhythm without murmurs, rubs or gallops. S1 and S2 heard. EXTREMITIES: Normal range of motion, no edema. No clubbing or cyanosis. Peripheral pulses intact. ASSESSMENT Chest pain Acute on chronic diastolic heart failure, improving Acute on chronic respiratory failure secondary to COPD Paroxysmal atrial fibrillation, currently maintaining sinus rhythm initiated on a liquid PLAN Continue current medical regimen. Chest pain is atypical and musculoskeletal in nature. No EKG changes. Stable for transfer to [facility] and follow-up with Dr. Holly as an outpatient. Nurse Practitioner note has been reviewed, I agree with a documented findings and plan of care. Patient was seen and examined. Objective - Vital Signs Vital signs: Vital Signs Temp 97.7 F 06/12/21 08:00 Pulse 88 06/12/21 08:25 Resp 18 06/12/21 08:00 BP 119/64 06/12/21 08:00 Pulse Ox 97 06/12/21 08:00 Intake & Output 06/11/21 06/12/21 06/12/21 18:59 06:59 18:59 Intake Total 1430 Output Total 1000 1200 Balance 430 -1200 Intake: Intake, IV Titration 160 Amount Sodium Chloride 0.9% 1, 160 000 ml @ 20 mls/hr IV . Q24H [facility] Rx#:[id number] Oral 1270 Output: Urine 1000 1200 Other: # Bowel Movements 2 - Labs CBC & Chem 7: 06/08/21 02:57 06/11/21 10:25 Labs: Abnormal Lab Results - Last 24 Hours (Table) 06/11/21 06/11/21 06/11/21 Range/Units 10:25 11:36 16:38 Sodium 131 L (137-145) mmol/L Chloride 94 L (98-107) mmol/L Carbon Dioxide 33 H (22-30) mmol/L POC Glucose (mg/dL) 107 H 104 H (75-99) mg/dL 06/11/21 06/12/21 06/12/21 Range/Units 20:34 02:13 06:58 Sodium (137-145) mmol/L Chloride (98-107) mmol/L Carbon Dioxide (22-30) mmol/L POC Glucose (mg/dL) 127 H 111 H 103 H (75-99) mg/dL
[2021-06-12 10:59] LABS: Glucose,Whole Blood 96 mg/dL (75-99)
[2021-06-12] MEDS ORDERED: MAG HYDROX/AL HYDROX/SIMETH 30 ML CUP PO PRN (15:31)
[2021-06-12 16:16] LABS: Glucose,Whole Blood 120 mg/dL (75-99)
[2021-06-12] MEDS: LATANOPROST 0.005% OPHTH DROPS 2.5 ML BTL LEFT EYE SCH (20:16)
[2021-06-12] MEDS: ATORVASTATIN 20 MG TAB PO SCH (20:16)
[2021-06-12 20:26] LABS: Glucose,Whole Blood 142 mg/dL (75-99)
[2021-06-12] MEDS: SODIUM CHLORIDE 0.9% 1,000 ML IV SCH (20:27)
[2021-06-13] MEDS: oxyCODONE-APAP 5-325MG 1 EACH TAB PO PRN ×3 (00:27→18:31)
[2021-06-13] MEDS: HYDROmorphone 0.5 MG/0.5 ML SYRINGE IVP PRN (05:30)
[2021-06-13 07:10] LABS: Glucose,Whole Blood 99 mg/dL (75-99)
[2021-06-13] MEDS: IPRATROPIUM-ALBUTEROL 3 ML NEB INHALATION SCH ×4 (07:23→21:01)
[2021-06-13] MEDS: SYMBICORT 80-4.5 MCG INHALER INHALATION SCH ×2 (07:23→21:02)
[2021-06-13] MEDS: MULTIVITAMINS, THERA 1 EACH TAB PO SCH (09:54)
[2021-06-13] MEDS: VIT A,C & E-LUTEIN-MINERALS 1 EACH TAB PO SCH ×2 (09:54→20:44)
[2021-06-13] MEDS: DULoxetine HCL 30 MG CAPSULE.DR PO SCH (09:54)
[2021-06-13] MEDS: SPIRONOLACTONE 25 MG TAB PO SCH (09:55)
[2021-06-13] MEDS: METOPROLOL SUCCINATE (ER) 50 MG TAB.ER.24H PO SCH (09:55)
[2021-06-13] MEDS: APIXABAN 5 MG TAB PO SCH ×2 (09:55→20:43)
[2021-06-13] MEDS: FUROSEMIDE 40 MG TAB PO SCH (09:55)
[2021-06-13 11:55] LABS: Glucose,Whole Blood 113 mg/dL (75-99)
[2021-06-13 16:59] LABS: Glucose,Whole Blood 125 mg/dL (75-99)
[2021-06-13 20:10] LABS: Glucose,Whole Blood 130 mg/dL (75-99)
[2021-06-13] MEDS: LATANOPROST 0.005% OPHTH DROPS 2.5 ML BTL LEFT EYE SCH (20:44)
[2021-06-13] MEDS: traMADol 50 MG TAB PO PRN (20:44)
[2021-06-13] MEDS: ATORVASTATIN 20 MG TAB PO SCH (20:44)
[2021-06-13] MEDS: SODIUM CHLORIDE 0.9% 1,000 ML IV SCH (23:27)
--- NOTE | 2021-06-14 02:02 | P.PN ---
Subjective Progress Note Date: 06/13/21 Acute exacerbation COPD Paroxysmal atrial fibrillation Chest pain; ACS ruled out 66-year-old male patient with a known history of chronic obstructive pulmonary disease with biapical scarring, Former smoker of 45 years however quit in 2019, hypertension, hyperlipidemia, depression, atrial fibrillation, systolic congestive heart failure, Herring's esophagus, macular degeneration, osteoarthritis. He was here April 2021 with Moraxella, Vanessa and Streptococcus pneumoniae in his sputum. He presented to the emergency room yesterday with a 2 day history of sharp stabbing pain in the middle of his chest. He stated it was worse with deep breathing. More constant and intermittent. He did do a breathing treatment at home without much improvement. He was having some palpitations. He also states he has had some increased swelling in his lower extremities. Chest x-ray reveals no active cardiopulmonary disease. EKG reveals sinus rhythm with nonspecific ST and T wave abnormalities. CT angiogram of the chest revealed no evidence of pulmonary embolism. No evidence of aortic dissection or aneurysm. Reticular nodular infiltrates in the lung apices are unchanged. White count 6.2. Hemoglobin 10.4. MCV 100.6. Sodium 129. Potassium 3.7. Bicarb 31. BUN 9. Creatinine 0.71. Troponins negative 3. Clarke virus by PCR not detected. 06/12/2021 Patient is seen and evaluated in room at bedside; denies any chest pain; continues to complain of knee pain; patient is status post aspiration of left knee yesterday with 20 mL of fluid aspirated; orthopedic is recommending follow- up as an outpatient Vital signs are reviewed and stable with temperature 98.6, pulse 82, respirations 17 and blood pressure 116/68 Stress test is reviewed by cardiology and no further inpatient testing is recommended; Lasix has been switched to oral daily dose of 40 mg daily; Toprol increased to 50 mg daily for improved heart rate control Patient to be discharged to skilled rehab once arrangements are made 06/13/2021 Patient is seen and evaluated and follow-up this morning with multiple medical consultations following. Patient continues to have generalized pain and weakness and medical debility and plans are for ECF once insurance authorization is obtained. Patient is being followed by cardiology along with orthopedics. Patient is status post aspiration and cortisone injection of the left knee and continues to report pain and weakness. Patient reports intermittent chest pain, but denies any pain in the chest currently. Per nursing staff patient has been requesting IV pain medication. Will adjust medications and monitor closely. Review of systems: Constitutional: No reports of fatigue, fever, or chills Cardiovascular: No reports of chest pain or palpitations Respiratory: No reports of shortness of breath, reports cough GI: No reports of nausea, vomiting, or diarrhea : No reports of dysuria or retention Neurovascular: reports of weakness and generalized pain All medications have been reviewed Active Medications Acetaminophen (Acetaminophen Tab 325 Mg Tab) 650 mg PO Q6HR PRN PRN Reason: Mild Pain or Fever > 100.5 Al Hydroxide/Mg Hydroxide (Mag Hydrox/Al Hydrox/Simeth 30 Ml Cup) 30 ml PO Q4HR PRN PRN Reason: GI Upset Last Admin: 06/12/21 15:44 Dose: 30 ml Documented by: Albuterol Sulfate (Albuterol Nebulized 2.5 Mg/3 Ml) 2.5 mg INHALATION Q2H PRN PRN Reason: Wheezing Last Admin: 06/13/21 07:23 Dose: 2.5 mg Documented by: Albuterol/Ipratropium (Ipratropium-Albuterol 3 Ml Neb) 3 ml INHALATION RT-QID [facility] Last Admin: 06/13/21 14:57 Dose: 3 ml Documented by: Apixaban (Apixaban 5 Mg Tab) 5 mg PO BID [facility]; Protocol Last Admin: 06/13/21 09:55 Dose: 5 mg Documented by: Atorvastatin Calcium (Atorvastatin 20 Mg Tab) 20 mg [address] [facility] Last Admin: 06/12/21 20:16 Dose: 20 mg Documented by: Bisacodyl (Bisacodyl 5 Mg Tablet.) 5 mg PO DAILY PRN PRN Reason: Constipation Last Admin: 06/09/21 10:08 Dose: 5 mg Documented by: Budesonide/Formoterol Fumarate (Symbicort 80-4.5 Mcg Inhaler) 2 puff INHALATION RT-BID [facility] Last Admin: 06/13/21 07:23 Dose: 2 puff Documented by: Duloxetine HCl (Duloxetine Hcl 30 Mg Capsule.) 30 mg PO DAILY [facility] Last Admin: 06/13/21 09:54 Dose: 30 mg Documented by: Furosemide (Furosemide 40 Mg Tab) 40 mg PO DAILY [facility] Last Admin: 06/13/21 09:55 Dose: 40 mg Documented by: Sodium Chloride (Saline 0.9%) 1,000 mls @ 20 mls/hr IV .Q24H [facility] Last Admin: 06/12/21 20:27 Dose: Not Given Documented by: Latanoprost (Latanoprost 0.005% Ophth Drops 2.5 Ml Btl) 1 drops LEFT EYE HS [facility] Last Admin: 06/12/21 20:16 Dose: 1 drops Documented by: Metoprolol Succinate (Metoprolol Succinate (Er) 50 Mg Tab.Er.24h) 50 mg PO DAILY [facility] Last Admin: 06/13/21 09:55 Dose: 50 mg Documented by: Multivitamins (Multivitamins, Thera 1 Each Tab) 1 each PO DAILY [facility] Last Admin: 06/13/21 09:54 Dose: 1 each Documented by: Multivitamins/Minerals (Vit A,C & L-Irtjwm-Pxeecujc 1 Each Tab) 1 each PO BID [facility] Last Admin: 06/13/21 09:54 Dose: 1 each Documented by: Naloxone HCl (Naloxone 0.4 Mg/Ml 1 Ml Vial) 0.2 mg IV Q2M PRN PRN Reason: Opioid Reversal Ondansetron HCl (Ondansetron 4 Mg/2 Ml Vial) 4 mg IVP Q8HR PRN PRN Reason: Nausea And Vomiting Oxycodone/Acetaminophen (Oxycodone-Apap 5-325mg 1 Each Tab) 1 each PO Q4HR PRN PRN Reason: Severe Pain Last Admin: 06/13/21 11:11 Dose: 1 each Documented by: Spironolactone (Spironolactone 25 Mg Tab) 25 mg PO DAILY [facility] Last Admin: 06/13/21 09:55 Dose: 25 mg Documented by: Tramadol HCl (Tramadol 50 Mg Tab) 50 mg PO Q8HR PRN PRN Reason: Pain Last Admin: 06/08/21 02:12 Dose: 50 mg Documented by: Physical exam: Gen: This is a 66-year-old male awake, alert and oriented 3, well-developed, well-nourished. HEENT: Head is atraumatic, normocephalic. Pupils equal, round. Sclerae is anicteric. NECK: Supple. No JVD. No lymphadenopathy. No thyromegaly. LUNGS: diminished breath sounds bilaterally with scattered rhonchi. No intercostal retractions. HEART: S1, S2 muffled. No murmur. ABDOMEN: Soft. Bowel sounds are present. No masses. No tenderness. EXTREMITIES: No pedal edema. No calf tenderness. left knee pain and swelling NEUROLOGICAL: Patient is awake, alert and oriented x3. Cranial nerves 2 through 12 are grossly intact. diffuse weakness Assessment: - Chest pain; acute coronary syndrome ruled out - PE and thoracic aneurysm dissection is ruled out - Acute exacerbation COPD; continue with DuoNeb nebulizer treatments and home inhaler therapy in form of Symbicort - Paroxysmal atrial fibrillation - Acute on chronic diastolic CHF - Weakness/debility - left knee effusion, status post aspiration and cortisone injection - DVT prophylaxis - GI prophylaxis - full code Plan: Recommend to continue with current medications and management. PT/OT following and recommending [facility] and awaiting authorization from insurance. Patient continues to report a loss in functional ADL's and clinical decline and unable to care for himself. Social work following and will discuss with case management as well. Pulmonary and cardiology and orthopedics following and will need close outpatient follow up. Patient is status post left knee aspiration and analysis pending. Continue to encourage increased activity as tolerated. Will continue to montior closely with possible discharge to ECF in 24 hours. Due to multiple complex medical issues, prognosis is guarded. The impression and plan of care has been dictated by Poonam Raya, Nurse Practitioner as directed. Dr. Yasir MD I have performed a history and examination and MDM of this patient, discussed the same with the dictator, and agree with the dictator's assessment and plan as written ,documented as a scribe. Based on total visit time, I have performed more than 50% of the visit. Objective - Vital Signs Vital signs: Vital Signs Temp 98.5 F 06/13/21 08:00 Pulse 77 06/13/21 15:08 Resp 18 06/13/21 08:00 BP 123/68 06/13/21 08:00 Pulse Ox 96 06/13/21 10:00 Intake & Output 06/12/21 06/13/21 06/13/21 18:59 06:59 18:59 Intake Total 1430 Output Total 450 1900 Balance 980 -1900 Intake: Intake, IV Titration 160 Amount Sodium Chloride 0.9% 1, 160 000 ml @ 20 mls/hr IV . Q24H [facility] Rx#:[id number] Oral 1270 Output: Urine 450 1900 Other: Voiding Method Urinal Urinal # Voids 1 # Bowel Movements 1 - Labs CBC & Chem 7: 06/08/21 02:57 06/11/21 10:25 Labs: Abnormal Lab Results - Last 24 Hours (Table) 06/12/21 06/12/21 06/13/21 Range/Units 16:15 20:25 11:54 POC Glucose (mg/dL) 120 H 142 H 113 H (75-99) mg/dL
[2021-06-14] MEDS: oxyCODONE-APAP 5-325MG 1 EACH TAB PO PRN ×2 (03:14→09:07)
[2021-06-14 07:13] LABS: Glucose,Whole Blood 113 mg/dL (75-99)
[2021-06-14 07:14] VITALS: BP 130/73; RESP 18; TEMP 98
[2021-06-14] MEDS: IPRATROPIUM-ALBUTEROL 3 ML NEB INHALATION SCH ×2 (08:11→11:48)
[2021-06-14] MEDS: SYMBICORT 80-4.5 MCG INHALER INHALATION SCH (08:12)
[2021-06-14 08:23] VITALS: PULSE 84
[2021-06-14] MEDS: VIT A,C & E-LUTEIN-MINERALS 1 EACH TAB PO SCH (09:06)
[2021-06-14] MEDS: FUROSEMIDE 40 MG TAB PO SCH (09:07)
[2021-06-14] MEDS: METOPROLOL SUCCINATE (ER) 50 MG TAB.ER.24H PO SCH (09:07)
[2021-06-14] MEDS: APIXABAN 5 MG TAB PO SCH (09:07)
[2021-06-14] MEDS: DULoxetine HCL 30 MG CAPSULE.DR PO SCH (09:07)
[2021-06-14] MEDS: MULTIVITAMINS, THERA 1 EACH TAB PO SCH (09:07)
[2021-06-14] MEDS: SPIRONOLACTONE 25 MG TAB PO SCH (09:07)
--- NOTE | 2021-06-14 09:38 | P.DS ---
Providers Date of admission: 06/07/21 20:39 Expected date of discharge: 06/14/21 Attending physician: Kirill Cooley Consults: 06/07/21 21:54 Consult Physician Urgent Consulting Provider: Jacques Mitchell Consult Reason/Comments: COPD exacerbation Do you want consulting provider notified?: Yes, Notify in am 06/08/21 12:28 Consult Physician Routine Consulting Provider: Zhen Holly Consult Reason/Comments: chest pain Do you want consulting provider notified?: Yes 06/09/21 12:55 Consult Physician Urgent Consulting Provider: Real Crews Consult Reason/Comments: left knee swelling and pain Do you want consulting provider notified?: Yes [facility] Course: Final diagnosis - Chest pain; acute coronary syndrome ruled out - PE and thoracic aneurysm dissection is ruled out - Acute exacerbation COPD - Paroxysmal atrial fibrillation - Acute on chronic diastolic CHF - Weakness/debility - left knee effusion, status post aspiration and cortisone injection - DVT prophylaxis - GI prophylaxis - full code Discharge disposition Patient is being discharged in a stable condition with guarded prognosis to [facility] for continued PT/OT therapy. Patient will follow-up with Dr. Se Cooley in the outpatient setting upon discharge. Patient is to also follow-up with cardiology Dr. Holly in one week and Dr. Crews orthopedics as needed in the outpatient setting. Total time taken is greater than 35 minutes. Hospital course This is a 66-year-old male who was recently admitted with COPD acute exacerbation along with atrial fibrillation and chest pain and was being closely monitored. Patient was evaluated by pulmonary and cardiology and underwent Lexiscan stress test which showed that an acute ischemia inferior wall towards the apex can't be excluded and needs to be further investigated with direct catheter angiogram and patient will follow-up with Dr. Holly in the outpatient setting. Patient has been medically cleared by cardiology to go to [facility]. Patient with continued weakness and inability to care for himself and having difficulties at home and has been evaluated by physical therapy recommending subacute rehab and patient will be going to [facility]. Patient was also seen and evaluated for left knee pain and swelling by orthopedics and underwent knee aspiration and cortisone injection and will follow-up with Dr. Crews in the outpatient setting as needed. Patient will continue with current medications as mentioned below and has been started on anticoagulant by cardiology. Even repeat labs of CBC and BMP in the outpatient setting in the next 2-3 days as patient was a bit hyponatremic. Encourage oral intake and increased activity as tolerated. Currently no reports of chest pain, shortness of breath, or palpitations. Patient is afebrile. No reports of nausea or vomiting and patient is tolerating diet. Patient will be going to [facility] today. Guarded prognosis. On exam vital signs are stable. Cardio S1, S2 are muffled. Respiratory system shows diminished breath sounds at the bases with no wheezing or rhonchi noted. Abdomen is soft and nontender. Nervous system shows diffuse weakness. Please refer to medication reconciliation sheet for a list of medications. The impression and plan of care has been dictated by Poonam Raya, Nurse Practitioner as directed. Dr. Yasir MD I have performed a history and examination and MDM of this patient, discussed the same with the dictator, and agree with the dictator's assessment and plan as written ,documented as a scribe. Based on total visit time, I have performed more than 50% of the visit. Patient Condition at Discharge: Stable Plan - Discharge Summary Discharge Rx Participant: No New Discharge Prescriptions: New bisacodyL [Dulcolax] 5 mg PO DAILY PRN tab PRN Reason: Constipation Mag Hydrox/Al Hydrox/Simeth [Maalox] 30 ml PO Q4HR PRN ml PRN Reason: Gi Upset oxyCODONE-APAP 5-325MG [Percocet 5-325 mg] 1 each PO Q4HR PRN #4 tab PRN Reason: Severe Pain Ipratropium-Albuterol Nebulize [Duoneb 0.5 mg-3 mg/3 ml Soln] 3 ml INHALATION RT-QID ml Apixaban [Eliquis] 5 mg PO BID tab Metoprolol Succinate (ER) [Toprol XL] 50 mg PO DAILY Acetaminophen Tab [Tylenol] 650 mg PO Q6HR PRN tab PRN Reason: Mild Pain Or Fever > 100.5 Continue Latanoprost [Xalatan 0.005%] 1 drop LEFT EYE HS Vit C/E/Zn/Coppr/Lutein/Zeaxan [Preservision Areds 2 Softgel] 1 tab PO BID Spironolactone [Aldactone] 25 mg PO DAILY 30 Days #30 tab Albuterol Nebulized [Ventolin Nebulized] 2.5 mg INHALATION RT-QID PRN PRN Reason: Shortness Of Breath Multivit-Min/Folic/Vit K/Lycop [Men's Multivitamin Tablet] 1 tab PO DAILY Albuterol Sulfate [Proventil Hfa] 2 puff INHALATION RT-QID PRN PRN Reason: Shortness Of Breath Budesonide/Formoterol Fumarate [Symbicort 80-4.5 Mcg Inhaler] 2 puff INHALATION RT-BID Furosemide [Lasix] 40 mg PO DAILY traMADol HCL [Ultram] 50 mg PO Q8HR PRN #6 tab PRN Reason: Pain Rosuvastatin Calcium [Crestor] 10 mg PO HS DULoxetine HCL [Cymbalta] 30 mg PO DAILY Discontinued Metoprolol Succinate (ER) [Toprol XL] 25 mg PO DAILY Discharge Medication List Latanoprost [Xalatan 0.005%] 1 drop LEFT EYE HS 10/31/17 [History] Vit C/E/Zn/Coppr/Lutein/Zeaxan [Preservision Areds 2 Softgel] 1 tab PO BID 08/22/19 [History] Spironolactone [Aldactone] 25 mg PO DAILY 30 Days #30 tab 09/12/19 [Rx] Albuterol Nebulized [Ventolin Nebulized] 2.5 mg INHALATION RT-QID PRN 08/13/20 [History] Multivit-Min/Folic/Vit K/Lycop [Men's Multivitamin Tablet] 1 tab PO DAILY 02/09/21 [History] Albuterol Sulfate [Proventil Hfa] 2 puff INHALATION RT-QID PRN 03/06/21 [History] Budesonide/Formoterol Fumarate [Symbicort 80-4.5 Mcg Inhaler] 2 puff INHALATION RT-BID 03/06/21 [History] Rosuvastatin Calcium [Crestor] 10 mg PO HS 03/06/21 [History] DULoxetine HCL [Cymbalta] 30 mg PO DAILY 05/07/21 [History] Furosemide [Lasix] 40 mg PO DAILY 06/07/21 [History] Acetaminophen Tab [Tylenol] 650 mg PO Q6HR PRN tab 06/14/21 [Rx] Apixaban [Eliquis] 5 mg PO BID tab 06/14/21 [Rx] Ipratropium-Albuterol Nebulize [Duoneb 0.5 mg-3 mg/3 ml Soln] 3 ml INHALATION RT-QID ml 06/14/21 [Rx] Mag Hydrox/Al Hydrox/Simeth [Maalox] 30 ml PO Q4HR PRN ml 06/14/21 [Rx] Metoprolol Succinate (ER) [Toprol XL] 50 mg PO DAILY 06/14/21 [Rx] bisacodyL [Dulcolax] 5 mg PO DAILY PRN tab 06/14/21 [Rx] oxyCODONE-APAP 5-325MG [Percocet 5-325 mg] 1 each PO Q4HR PRN #4 tab 06/14/21 [Rx] traMADol HCL [Ultram] 50 mg PO Q8HR PRN #6 tab 06/14/21 [Rx] Follow up Appointment(s)/Referral(s): Zhen Holly MD [STAFF PHYSICIAN] - 1 Week Bia Anderson MD [Primary Care Provider] - 1-2 days Real Crews MD [STAFF PHYSICIAN] - As Needed Ambulatory/Diagnostic Orders: Complete Blood Count w/diff [LAB.AMB] Time Frame: 2 Days, Location: None Selected Activity/Diet/Wound Care/Special Instructions: Activity as tolerated Patient will be going to [facility] Patient is to follow-up with cardiology Dr. Holly in 1-2 weeks Patient follow-up with primary care provider Patient follow-up with orthopedics outpatient Recommend repeat labs in 2-3 days of CBC and BMP Continue heart healthy diet Discharge Disposition: TRANSFER TO SNF/ECF
[2021-06-14 10:17] VITALS: BMI 31.4
[2021-06-14 11:51] LABS: Glucose,Whole Blood 117 mg/dL (75-99)
--- NOTE | 2021-06-16 09:13 | CDI ---
Documentation Clarification Form Date: 06/16/2021 09:02:00 AM From: Bernie Flores Admit Date: 06/07/2021 08:39:00 PM Patient Name: Eric Curran Visit Number: [id number] Discharge Date: 06/14/2021 02:56:00 PM ATTENTION: The Clinical Documentation Specialists (CDI) and [facility] Coding Staff appreciate your assistance in clarifying documentation. Please respond to the clarification below the line at the bottom and electronically sign. The CDI & [facility] Coding staff will review the response and follow-up if needed. Please note: Queries are made part of the Legal Health Record. If you have any questions, please contact the author of this message via ITS. Dr. Kirill Cooley Conflicting documentation has been found in the DCS. Final diagnosis documents acute coronary syndrome ruled out. Per hospital course in [facility]: "Patient was evaluated by pulmonary and cardiology and underwent Lexiscan stress test, which showed that an acute ischemia inferior wall towards the apex can't be excluded and needs further investigation with direct catheter angiogram and follow-up with Dr. Holly in outpatient setting." As attending physician, please provide clarification. Final diagnosis "acute coronary syndrome ruled out" [facility]CS Hospital course "an acute ischemia can't be excluded and needs to be further investigated" [facility] History/Risk Factors: CHF, HTN, HLD, Afib Clinical Indicators: Lexiscan stress test showed an acute ischemia inferior wall Treatment: Monitoring and further workup outpatient with cardilogist Please clarify which diagnosis is most appropriate: [ ] Acute ischemia inferior wall [ ] ACS ruled out [ ] Other (please specify) [ ] Unable to determine possible myocardial ischemia, abnormal stress test, cleared by cardio MTDD
== END 2021-06-14 14:56 | DRG 291 ==
LOC: EC 19:10 → 1SOBS 20:39 → 4SSUR 22:17
PROVIDERS: ADMIT Hospitalist; ATTEND Hospitalist
PROC: 3E0U33Z Introduction of Anti-inflammatory into Joints, Percutaneous Approach (ICD-10-PCS; principal; 2021-06-10)
PROC: 0S9D3ZX Drainage of Left Knee Joint, Percutaneous Approach, Diagnostic (ICD-10-PCS; principal; 2021-06-10)
PROC: 3E0U3BZ Introduction of Anesthetic Agent into Joints, Percutaneous Approach (ICD-10-PCS; principal; 2021-06-10)
DX: I11.0 Hypertensive heart disease with heart failure (principal); I50.43 Acute on chronic combined systolic (congestive) and diastolic (congestive) heart failure; J96.20 Acute and chronic respiratory failure, unspecified whether with hypoxia or hypercapnia; J18.9 Pneumonia, unspecified organism; E87.1 Hypo-osmolality and hyponatremia; D64.9 Anemia, unspecified; E78.5 Hyperlipidemia, unspecified; J43.9 Emphysema, unspecified; G89.29 Other chronic pain; I25.9 Chronic ischemic heart disease, unspecified; E87.6 Hypokalemia; I48.0 Paroxysmal atrial fibrillation; M54.9 Dorsalgia, unspecified; K44.9 Diaphragmatic hernia without obstruction or gangrene; K22.70 Barrett's esophagus without dysplasia; M17.0 Bilateral primary osteoarthritis of knee; Z79.51 Long term (current) use of inhaled steroids; Z79.899 Other long term (current) drug therapy; Z86.16 Personal history of COVID-19; Z87.891 Personal history of nicotine dependence; Z96.659 Presence of unspecified artificial knee joint; Z53.09 Procedure and treatment not carried out because of other contraindication; Z28.310 Unvaccinated for COVID-19; H35.30 Unspecified macular degeneration; H40.9 Unspecified glaucoma; Z98.890 Other specified postprocedural states; Z88.6 Allergy status to analgesic agent
CPT/HCPCS: 36415; 71045; 71275; 78452; 80048; 80053; 83735; 83880; 84484; 85025; 85610; 85730; 87635; 93005; 93017; 93306; 94640; 96374; 96375; 99285

== ENCOUNTER 2021-08-16 07:30 | Day surgery (SDC) | payer MEDICARE, OTHER ==
[2021-08-15 09:54] VITALS: BMI 28.1
[~2021-08-16 07:30] MED LIST: ALPRAZolam 0.25 MG TAB PO PRN; ALPRAZolam 0.5 MG TAB PO PRN; NITROGLYCERIN SL TABS 0.4 MG TAB SUBLINGUAL PRN; SODIUM CHLORIDE 0.9% 1,000 ML in EMPTY BAG 1 BAG IV SCH
[2021-08-16 07:50] VITALS: RESP 18; TEMP 97.9
[2021-08-16] MEDS ORDERED: HYDROmorphone 1 MG/ML 1 ML SYRINGE IVP PRN (08:41)
[2021-08-16] MEDS ORDERED: HYDROmorphone 1 MG/ML 1 ML SYRINGE ONE (08:42)
[2021-08-16] MEDS ORDERED: VERAPAMIL 2.5 MG/ML 2 ML AMP ONE (09:53)
[2021-08-16] MEDS ORDERED: HEPARIN SODIUM 1,000 UN/ML (10ML VL) ONE (09:53)
[2021-08-16] MEDS ORDERED: MIDAZOLAM 2 MG/2 ML VIAL IVP ONE (10:10)
[2021-08-16] MEDS ORDERED: LIDOCAINE 1% INJ 10MG/ML (5 ML VIAL-PF) SQ ONE (10:11)
[2021-08-16] MEDS: VERAPAMIL SYRINGE (5 MG/10 ML) INTRAARTER ONE ×2 (10:12→10:26)
[2021-08-16] MEDS ORDERED: HEPARIN SODIUM 1,000 UN/ML (10ML VL) IV ONE (10:13)
[2021-08-16] MEDS ORDERED: POTASSIUM CHLORIDE ER 20 MEQ TAB.ER PO STA (10:20)
[2021-08-16] MEDS ORDERED: IOPAMIDOL-370 125ML BTL INJ ONE (10:25)
[2021-08-16] MEDS ORDERED: RX INFO: IV CONTRAST WAS GIVEN 1 EACH MISC MISCELLANE PRN (10:31)
--- NOTE | 2021-08-16 10:36 | P.PCN ---
Date of Procedure: 08/16/21 Operative Findings: CARDIAC CATHETERIZATION PERFORMING PHYSICIAN: Zhen Holly MD, RPVI PROCEDURE PERFORMED: 1. Selective right and left coronary angiogram 2. Left heart catheterization INDICATION: Chest discomfort in this 66-year-old gentleman who underwent myocardial perfusion imaging stress test showed reversible defect inferior COMPLICATION: None APPROACH: Right radial artery LEVEL OF SEDATION: Moderate with a sedation length of 17 minutes PROCEDURE DESCRIPTION: After obtaining an informed consent, the patient was brought to cardiac laboratory helper. Local anesthesia was performed using lidocaine subcutaneously. The right radial artery was cannulated using Seldinger technique, the guidewire passed easily, following that we advanced a 5-Tanzanian sheath dilator assembly, the wire and dilator were removed and sheath was flushed. Following that, 2 mg of verapamil along with 5000 unit heparin were given. Selective right and left coronary angiogram using a 6-Tanzanian JR4 and JL 4 catheters. Following that we did left heart catheterization using 6-Tanzanian pigtail catheter. The procedure was completed there was no complication. SELECTIVE CORONARY ANGIOGRAM: The right coronary artery: Is a large caliber vessel and a dominant vessel. The RCA is calcified was mild disease only. Distally bifurcates into PDA and PLV branches both appeared to be angiographically normal Left main: The ostial left main has a plaque appears to be in the range of 30-40%. The left circumflex: It is a large caliber vessel and nondominant vessel. The LCx appeared to be angiographically normal. Gives rises into the first OM branch which work as a ramus intermedius and second and third obtuse marginal branch. All appears to be angiographically normal. The left anterior descending artery: It is a large caliber vessel. The LAD is angiographically normal. The LAD gives rises into a large diagonal branch which appeared to be angiographically normal HEMODYNAMICS: And the LVEDP was about 12 mmHg with no significant gradient across aortic valve CONCLUSION: 1. 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 Low left-sided filling pressure POSTPROCEDURE MANAGEMENT: Medical treatment and follow-up with the patient
[2021-08-16] MEDS ORDERED: SODIUM CHLORIDE 0.9% 1,000 ML IV SCH (10:45)
[2021-08-16 15:26] VITALS: BP 94/50; PULSE 92
== END 2021-08-16 15:10 ==
LOC: CATHCVL 07:30
PROVIDERS: ATTEND Internal Medicine Interventional Cardiology
DX: R07.89 Other chest pain (principal); Z20.822 Contact with and (suspected) exposure to COVID-19
CPT/HCPCS: 93458; 87635; C1894; J2250; J2001; J1644; J1170; Q9967

== ENCOUNTER → 2021-09-15 | Outpatient (CLI) | payer MEDICARE, OTHER ==
--- NOTE | 2021-09-15 10:56 | P.PAINPG ---
PQRS Measure Charge Sheet Comment: A 66 yr old male with a history of severe and chronic L knee pain secondary to arthropathy presents today for evaluation. Pt underwent a L knee arthrocentesis with cortisone injection approx [address] Crews and is referred for "genicular artery embolism vs other pain relieving procedures for L knee." Pain level is currently at 9/10 in intensity, constant, dull/ achy and localized in the L knee. Pain is provoked by weight bearing activity. Pain is alleviated with occasions (Percocet 5/325mg), physical therapy which he is currently in, home stretching regimen, repositioning and rest. Interventional pain procedures completed include L knee arthrocentesis with intra-articular injection Patient is currently on Percocet 5/325 mg Patient denies any side effects of the medication(s), denies excessive drowsiness or sleepiness, denies suicidal ideation and reports that the current pain medication is helping to control the pain and improve activities of daily living. Patient denies any motor or sensory deficits. Patient denies any fever or night sweats, denies any change in the bowel movements or urination. Physical Examination: -Constitutional: Cooperative. Not in acute distress . - Neurologic: Cranial nerve II to XII intact. No focal neurological deficits. - Psychatric: Alert & oriented x 3. Matching mood & appropriate affect. Judgment and insight intact. - Musculoskeletal: +L diffuse TTP Cervical spine: Muscle bulk/ tone/ strength in the bilateral upper extremities normal Vertebral body tenderness to palpation over Spurling test positive Distraction test positive Facet loading test positive Thoracic spine Muscle bulk / tone/ strength in the bilateral paraspinal muscles normal Vertebral body tender to palpation over Facet loading test positive Lumbar spine: Motor bulk/ tone/ strength lower extremities , thigh and legs : 5/5 Deep tendon reflexes : Normal Knee Jerk. Normal Ankle Jerk . 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 May need a series of injections, up until RFA, for optimal pain relief. Risks, benefits of procedure discussed and pt verbalized understanding. Denies anticoagulant use or medical history of diabetes. All patient questions answered MAPS reviewed and it was appropriate. I have spent less than 30 minutes on patient care today. Dr Page was available by phone for the evaluation of this patient. The time was used to review the medical records including relevant urine studies and Prescription history (MAPs), review of the available imaging, evaluation and examination of the patient, coordination of care with the medical staff and if applicable referring physicians, as well as creation of the medical record PQRS Narrative: Smoking Status Former smoker Narcotic Agreement Date Signed 06/01/21 Hx Alcohol Use (MH) No Home Medications: Ambulatory Orders Latanoprost [Xalatan 0.005%] 1 drop LEFT EYE HS 10/31/17 Vit C/E/Zn/Coppr/Lutein/Zeaxan [Preservision Areds 2 Softgel] 1 tab PO BID 08/22/19 Spironolactone [Aldactone] 25 mg PO DAILY 30 Days #30 tab 09/12/19 Albuterol Nebulized [Ventolin Nebulized] 2.5 mg INHALATION RT-QID PRN 08/13/20 Multivit-Min/Folic/Vit K/Lycop [Men's Multivitamin Tablet] 1 tab PO DAILY 02/09/21 Albuterol Sulfate [Proventil Hfa] 2 puff INHALATION RT-QID PRN 03/06/21 Budesonide/Formoterol Fumarate [Symbicort 80-4.5 Mcg Inhaler] 2 puff INHALATION RT-BID 03/06/21 Rosuvastatin Calcium [Crestor] 10 mg PO HS 03/06/21 DULoxetine HCL [Cymbalta] 30 mg PO DAILY 05/07/21 Acetaminophen Tab [Tylenol] 650 mg PO Q6HR PRN tab 06/14/21 Apixaban [Eliquis] 5 mg PO BID tab 06/14/21 Mag Hydrox/Al Hydrox/Simeth [Maalox] 30 ml PO Q4HR PRN ml 06/14/21 Metoprolol Succinate (ER) [Toprol XL] 50 mg PO DAILY 06/14/21 bisacodyL [Dulcolax] 5 mg PO DAILY PRN tab 06/14/21 oxyCODONE-APAP 5-325MG [Percocet 5-325 mg] 1 each PO Q4HR PRN #4 tab 06/14/21 traMADol HCL [Ultram] 50 mg PO Q8HR PRN #6 tab 06/14/21 Baclofen 10 mg PO BID 08/15/21 Fluticasone/Vilanterol [Breo Ellipta 100-25 Mcg Inhaler] 1 inhalation PO Q24HR 08/15/21 Furosemide [Lasix] 80 mg PO BID 08/15/21 Ipratropium-Albuterol Nebulize [Duoneb 0.5 mg-3 mg/3 ml Soln] 3 ml INHALATION Q6HR PRN 08/15/21 metOLazone [Zaroxolyn] 2.5 mg PO MOFR 08/15/21 oxyCODONE HCL/ACETAMINOPHEN [oxyCODONE HCL/ACETAMINOPHEN 5-325] 1 tab PO Q8H 08/15/21 Controlled Substance Measures - Controlled Substance Measures Is patient prescribed a controlled substance at discharge?: No
[2021-09-15 10:57] VITALS: BP 96/52; PULSE 91; RESP 18; TEMP 97.8
== END ==
LOC: PNWHC3 09:50
PROVIDERS: ATTEND Specialist
DX: G58.9 Mononeuropathy, unspecified (principal); G89.29 Other chronic pain; Z87.891 Personal history of nicotine dependence; Z88.6 Allergy status to analgesic agent; Z91.030 Bee allergy status; Z88.8 Allergy status to other drugs, medicaments and biological substances
CPT/HCPCS: 99211

== ENCOUNTER 2022-01-31 09:30 | Day surgery (SDC) | payer MEDICARE, OTHER ==
[2021-11-22 08:55] VITALS: BMI 28.0
[~2022-01-31 09:30] MED LIST changes: -ALPRAZolam 0.25 MG TAB PO PRN; -ALPRAZolam 0.5 MG TAB PO PRN; +LACTATED RINGERS 1,000 ML IV SCH; -NITROGLYCERIN SL TABS 0.4 MG TAB SUBLINGUAL PRN; -SODIUM CHLORIDE 0.9% 1,000 ML in EMPTY BAG 1 BAG IV SCH
[2022-01-31] MEDS ORDERED: ROPIVACAINE 5 MG/ML 20 ML AMPULE ONE (10:07)
[2022-01-31] MEDS ORDERED: methylPREDNISolone ACETATE 40 MG/ML 1 ML VIAL ONE (10:07)
[2022-01-31 10:24] VITALS: TEMP 96.8
--- NOTE | 2022-01-31 10:24 | P.PCN ---
Date of Procedure: 01/31/22 Description of Procedure: Procedure: Genicular nerve block under ultrasound guidance. Preoperative diagnoses: 1. Knee Osteoarthritis Postoperative diagnoses: 1. Knee Osteoarthritis Condition: Stable. Anesthesia: None Description of the procedure: Risk and benefit from the procedure discussed with the patient and he agreed with the preceding including but not limited to risk of infection and bleeding not complete pain relief and ALLERGIC reaction to the medication patient has significant debility, ultrasound guidance was used after monitors were placed. Anterior Posterior view of the knee was ascertained. Then under ultrasound guidance 25-gauge Quincke-type spinal needle first needle advanced and placed at the superior medial epicondyle of the femur and the needle tip was in direct contact with the periosteum. A solution consisting of 9 ML's 0.5% ropivacaine with 40 mg of Depo-Medrol was drawn up. 3 ml of solution injected after negative aspiration, there was no paresthesia during the injection, then another 25 gauge spinal needle advanced at the superior lateral epicondyle of the femur and needle was in direct contact with the periosteum of the lateral epicondyle then after negative aspiration for heme and there was no paresthesia during the injection total of 3 ML of solution was injected after negative aspiration, and then another needle advanced and placed at the distal medial epicondyle of the tibia and the needle tip was placed at the direct contact on the periosteum of the medial epicondyle of the tibia and then after negative aspiration for heme and there was no paresthesia during the injection 3 ml of solution was injected after negative aspiration patient tolerated the procedure well without any complication. The procedure was performed under ultrasound guidance due to significant debility and difficulty moving the patient onto the x-ray table. If he needs to have a radiofrequency ablation of the genicular nerves he will need to have it done under fluoroscopy. Disposition: Patient was given a pain diary. Hopefully that the patient and the long-term can determine if the patient's knee pain was significantly improved with the injections which would allow us to perform a genicular nerve radiofrequency ablation of the left knee in the near future.
[2022-01-31 10:28] VITALS: RESP 18
[2022-01-31 10:37] LABS: Glucose,Whole Blood 99 mg/dL (70-110)
[2022-01-31 10:42] VITALS: BP 118/61; PULSE 77
== END 2022-01-31 10:48 | disposition home or self-care (01) ==
LOC: ORPAIN 09:30
PROVIDERS: ATTEND Hospitalist
DX: M17.12 Unilateral primary osteoarthritis, left knee (principal)
CPT/HCPCS: 64454; J1030; J2795

== ENCOUNTER 2022-02-03 02:30 | Inpatient (IN) | payer MEDICARE, OTHER ==
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
--- NOTE | 2022-02-03 03:55 | XR ---
EXAMINATION TYPE: XR chest 2V DATE OF EXAM: 02/03/2022 COMPARISON: NONE HISTORY: Chest pain TECHNIQUE: 2 views FINDINGS: Heart size is normal. Lungs are clear of consolidation. There are no hilar masses. There ar e chest leads. Costophrenic angles are fairly clear. There is previous left shoulder surgery. No evid ence of a pulmonary mass. IMPRESSION: No active cardiopulmonary disease. No change.
[2022-02-03 03:59] LABS: Basophils # (A) 0.1 k/uL (0-0.2); Basophils % (A) 0 %; Eosinophils # (A) 0.1 k/uL (0-0.7); Eosinophils % (A) 1 %; HCT 38.9 % (39.0-53.0); HGB 13.2 gm/dL (13.0-17.5); Lymphocytes # (A) 0.8 k/uL (1.0-4.8); Lymphocytes % (A) 4 %; MCH 31.9 pg (25.0-35.0); MCHC 33.8 g/dL (31.0-37.0); MCV 94.1 fL (80.0-100.0); Mean Platelet Volume 8.3; Monocytes # (A) 0.8 k/uL (0-1.0); Monocytes % (A) 4 %; Neutrophils # (A) 16.9 k/uL (1.3-7.7); Neutrophils % (A) 90 %; Platelet Count 304 k/uL (150-450); RBC 4.13 m/uL (4.30-5.90); RDW 13.4 % (11.5-15.5); WBC 18.9 k/uL (3.8-10.6)
[2022-02-03 04:04] LABS: Albumin 4.2 g/dL (3.5-5.0); Calcium 8.3 mg/dL (8.4-10.2); Magnesium 1.7 mg/dL (1.6-2.3); Potassium 3.3 mmol/L (3.5-5.1); Total Bilirubin 1.1 mg/dL (0.2-1.3); Total Protein 7.7 g/dL (6.3-8.2)
[2022-02-03 05:25] LABS: Partial Thromboplastin Time 26.9 sec (22.0-30.0); Prothrombin Time 10.2 sec (9.0-12.0)
[2022-02-03] MEDS ORDERED: MENTHOL-ZINC OXIDE OINT 113 GM TUBE TOPICAL PRN (06:00)
[2022-02-03] MEDS ORDERED: PNEUMONIA PROTOCOL UTILIZED 1 EACH MISC PO PRN (06:25)
[2022-02-03] MEDS ORDERED: IPRATROPIUM-ALBUTEROL 3 ML NEB INHALATION PRN ×2 (06:38→13:55)
[2022-02-03] MEDS ORDERED: AZITHROMYCIN 500 MG in SODIUM CHLORIDE 0.9% 250 ML IVPB STA (06:38)
[2022-02-03] MEDS ORDERED: NALOXONE 0.4 MG/ML 1 ML VIAL IV PRN (07:01)
[2022-02-03] MEDS ORDERED: APIXABAN 5 MG TAB PO STA (07:34)
--- NOTE | 2022-02-03 08:09 | CT ---
EXAMINATION TYPE: CT chest angio for PE CT DLP: 661 mGycm, Automated exposure control for dose reduction was used. DATE OF EXAM: 02/03/2022 7:58 AM COMPARISON: Chest radiograph from same day. CTA chest 06/07/2021. CLINICAL INDICATION:Male, 67 years old with history of elevated d-dimer; Chest pain TECHNIQUE/CONTRAST: CTA scan of the thorax is performed with IV Contrast, patient injected with 83 mL of Isovue 370, pulm onary embolism protocol. MIP images are created and reviewed. FINDINGS: Pulmonary Artery: There is no evidence for a central filling defect within the pulmonary vasculature to suggest acute pulmonary embolism. Limited evaluation of the segmental and subsegmental branches se condary to bolus timing. The pulmonary artery is of normal size. Lungs/Pleura: Biapical pleural-parenchymal scarring. Mild centrilobular and paraseptal emphysematous changes. No pneumothorax or pleural effusion. Interval development of patchy right lower lobe groundg lass opacities and consolidation. Airway: Large airways are patent. Heart: Heart is within normal limits for size.. No pericardial effusion. Mild coronary calcifications . Vasculature: No evidence of aortic aneurysm. Atherosclerotic calcification of the aorta and its branc hes. Mediastinum: Enlarged right superior mediastinal paratracheal lymph node measuring up to 1.4 cm. Mild ly prominent right hilar lymph node measuring 0.9 cm short axis. Musculoskeletal: No acute osseous abnormalities. Bilateral shoulder arthropathy. Mild multilevel dege nerative disc disease. Soft Tissues: Bilateral gynecomastia. Lower neck: No significant findings. Upper Abdomen: No significant findings. IMPRESSION: 1. No evidence of central pulmonary embolism. Limited evaluation of the segmental and subsegmental br anches. 2. Right lower lobe patchy groundglass opacities and consolidation consistent with pneumonia. Continu ed follow-up is recommended. 3. Mediastinal and right hilar adenopathy, likely reactive to #2. 4. COPD changes.
[2022-02-03] MEDS ORDERED: PANTOPRAZOLE 40 MG/10 ML VIAL IVP SCH (09:00)
[2022-02-03 09:18] LABS: Basophils # (A) 0.1 k/uL (0-0.2); Basophils % (A) 0 %; Eosinophils # (A) 0.2 k/uL (0-0.7); Eosinophils % (A) 1 %; HGB 12.3 gm/dL (13.0-17.5); Lymphocytes # (A) 0.9 k/uL (1.0-4.8); Lymphocytes % (A) 4 %; MCH 31.9 pg (25.0-35.0); MCHC 34.2 g/dL (31.0-37.0); MCV 93.2 fL (80.0-100.0); Mean Platelet Volume 7.9; Monocytes # (A) 1.1 k/uL (0-1.0); Monocytes % (A) 5 %; Neutrophils # (A) 19.9 k/uL (1.3-7.7); Neutrophils % (A) 88 %; Platelet Count 268 k/uL (150-450); RBC 3.86 m/uL (4.30-5.90); RDW 13.4 % (11.5-15.5); WBC 22.5 k/uL (3.8-10.6)
[2022-02-03] MEDS ORDERED: FUROSEMIDE 10 MG/ML 4 ML VIAL IV SCH (09:45)
[2022-02-03] MEDS: SODIUM CHLORIDE 0.9% 1,000 ML IV SCH (10:07)
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
[2022-02-03] MEDS: POTASSIUM CHLORIDE ER 20 MEQ TAB.ER PO SCH ×2 (15:54→21:31)
[2022-02-03] MEDS: METOPROLOL SUCCINATE (ER) 50 MG TAB.ER.24H PO SCH (16:39)
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
[2022-02-03] MEDS: ATORVASTATIN 80 MG TAB PO SCH (21:17)
[2022-02-03] MEDS: traMADol 50 MG TAB PO PRN (21:17)
[2022-02-03] MEDS: FUROSEMIDE 10 MG/ML 2 ML VIAL IV SCH (21:17)
[2022-02-03] MEDS: BACLOFEN 10 MG TAB PO SCH (21:18)
[2022-02-03] MEDS: APIXABAN 5 MG TAB PO SCH (21:18)
[2022-02-03] MEDS: LATANOPROST 0.005% OPHTH DROPS 2.5 ML BTL LEFT EYE SCH (21:18)
[2022-02-03] MEDS: LOPERAMIDE 2 MG CAP PO PRN (21:31)
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
[2022-02-04] MEDS: PIPERACILLIN-TAZOBACTAM 3.375 GM in SODIUM CHLORIDE 0.9% 100 ML IVPB SCH ×4 (00:13→23:46)
[2022-02-04] MEDS: ACETAMINOPHEN TAB 325 MG TAB PO PRN ×2 (00:14→18:46)
[2022-02-04] MEDS: SODIUM CHLORIDE 0.9% 1,000 ML IV SCH (00:18)
--- NOTE | 2022-02-04 06:05 | P.PN ---
Subjective Progress Note Date: 02/04/22 Principal diagnosis: Shortness of breath The patient is a pleasant 67-year-old gentleman with a past medical history significant for mild nonobstructive coronary artery disease as well as heart failure with preserved ejection fraction and also hypertension and dyslipidemia who presented to the emergency department with increasing shortness of breath associated with increasing lower exam and his edema and he was diagnosed with heart failure. Last echo showed preserved left ventricular systolic function February 042021 The patient was seen and evaluated this morning. He stated that the shortness of breath has improved. On examination he still have bilateral expiratory wheezing and severe bilateral lower except his edema and severe chronic skin changes. He has been diuresing well on the current dose of Lasix which is 20 mg IV twice a day. Was still waiting the results of the blood work from the morning including kidney function and electrolytes. The pressure continues to be soft. The last echo showed preserved left ventricular systolic function without suggest at this point continue the current medical regimen and continue monitor the kidney function and electrolytes. Objective - Vital Signs Vital signs: Vital Signs Temp 98.2 F 02/04/22 04:00 Pulse 87 02/04/22 04:00 Resp 18 02/04/22 04:00 BP 92/44 02/04/22 04:00 Pulse Ox 94 L 02/04/22 04:00 FiO2 Intake & Output 02/03/22 02/03/22 02/04/22 06:59 18:59 06:59 Intake Total 625 640 Output Total 1400 600 Balance -775 40 Weight 92.986 kg 92.986 kg Intake: IV 625 Azithromycin 500 mg In 250 Sodium Chloride 0.9% 250 ml @ 250 mls/hr IVPB ONCE [facility] Rx#:[id number] Sodium Chloride 0.9% 1, 375 000 ml @ 75 mls/hr IV . [id number] [facility] Rx#:[id number] Intake, IV Titration 100 Amount Piperacillin-Tazobactam 3 100 .375 gm In Sodium Chloride 0.9% 100 ml @ 25 mls/hr IVPB Q8HR [facility] Rx# :[id number] Oral 540 Output: Urine 1400 600 Other: Voiding Method External Catheter External Catheter # Bowel Movements 2 - Constitutional General appearance: Present: no acute distress - Respiratory Respiratory: bilateral: diminished, wheezing - Cardiovascular Rhythm: regular Heart sounds: normal: S1, S2 Abnormal Heart Sounds: Present: systolic murmur - Labs CBC & Chem 7: 02/03/22 08:58 02/03/22 02:52 Labs: Abnormal Lab Results - Last 24 Hours (Table) 02/03/22 02/03/22 02/03/22 Range/Units 06:44 08:58 08:58 WBC 22.5 H (3.8-10.6) k/uL RBC 3.86 L (4.30-5.90) m/uL Hgb 12.3 L (13.0-17.5) gm/dL Hct 36.0 L (39.0-53.0) % Neutrophils # 19.9 H (1.3-7.7) k/uL Lymphocytes # 0.9 L (1.0-4.8) k/uL Monocytes # 1.1 H (0-1.0) k/uL Plasma Lactic Acid Hugo 2.4 H* (0.7-2.0) mmol/L Procalcitonin 2.90 H (0.02-0.09) ng/mL Assessment and Plan Assessment: Assessment #1 shortness of breath which is likely to be multifocal #2 heart failure exacerbation secondary to heart failure was preserved ejection fraction was evidence of biventricular failure #3 mild nonobstructive coronary artery disease #4 multiple comorbid conditions Plan #1 continue IV Lasix for additional 24 hours #2 continue monitor the kidney function and electrolytes #3 follow-up with the patient
[2022-02-04] MEDS: oxyCODONE-APAP 5-325MG 1 EACH TAB PO PRN ×2 (06:19→23:45)
[2022-02-04] MEDS: PANTOPRAZOLE 40 MG TABLET PO SCH (06:20)
--- NOTE | 2022-02-04 06:57 | XR ---
EXAMINATION TYPE: XR chest 2V DATE OF EXAM: 02/04/2022 COMPARISON: 02/03/2022 HISTORY: Shortness of breath TECHNIQUE: Frontal and lateral views of the chest are obtained. FINDINGS: Scattered senescent parenchymal changes noted. Hyperinflation compatible with COPD. No evidence for infiltrate. No evidence for atelectasis. Heart size is stable. Mediastinal structures are stable and grossly unremarkable. No evidence for hilar prominence. Degenerative changes dorsal spine. IMPRESSION: 1. No evidence for acute pulmonary disease.
[2022-02-04] MEDS ORDERED: SPIRONOLACTONE 25 MG TAB PO SCH (09:00)
[2022-02-04] MEDS: BACLOFEN 10 MG TAB PO SCH ×2 (09:03→19:58)
[2022-02-04] MEDS: POTASSIUM CHLORIDE ER 20 MEQ TAB.ER PO SCH ×2 (09:03→19:57)
[2022-02-04] MEDS: METOPROLOL SUCCINATE (ER) 50 MG TAB.ER.24H PO SCH (09:03)
[2022-02-04] MEDS: APIXABAN 5 MG TAB PO SCH ×2 (09:03→19:57)
[2022-02-04] MEDS: FUROSEMIDE 10 MG/ML 2 ML VIAL IV SCH ×2 (09:04→19:58)
[2022-02-04 10:04] LABS: Basophils % (A) 0 %; Eosinophils # (A) 0.2 k/uL (0-0.7); Eosinophils % (A) 1 %; HCT 30.1 % (39.0-53.0); Lymphocytes # (A) 0.7 k/uL (1.0-4.8); Lymphocytes % (A) 5 %; MCH 31.4 pg (25.0-35.0); MCHC 33.4 g/dL (31.0-37.0); MCV 94.2 fL (80.0-100.0); Mean Platelet Volume 8.5; Monocytes # (A) 0.6 k/uL (0-1.0); Monocytes % (A) 4 %; Neutrophils # (A) 12.9 k/uL (1.3-7.7); Neutrophils % (A) 88 %; Platelet Count 216 k/uL (150-450); RBC 3.19 m/uL (4.30-5.90); RDW 13.7 % (11.5-15.5); WBC 14.6 k/uL (3.8-10.6)
[2022-02-04] MEDS: DAPAGLIFLOZIN PROPANEDIOL 5 MG TABLET PO SCH (10:13)
[2022-02-04 10:27] LABS: African American GFR (CKD) >90 (>60 ml/min/1.73 sqM); Anion Gap 4 mmol/L; Blood Urea Nitrogen 19 mg/dL (9-20); Calcium 7.4 mg/dL (8.4-10.2); Carbon Dioxide 31 mmol/L (22-30); Chloride 99 mmol/L (98-107); Glucose 139 mg/dL (74-99); Non-African American GFR(CKD) 88 (>60 ml/min/1.73 sqM); Potassium 2.8 mmol/L (3.5-5.1); Sodium 134 mmol/L (137-145)
[2022-02-04] MEDS ORDERED: POTASSIUM CHLORIDE 20 MEQ in WATER FOR INJECTION 1 100ML.BAG IVPB STA (12:20)
[2022-02-04] MEDS: ATORVASTATIN 80 MG TAB PO SCH (19:57)
[2022-02-04] MEDS: LATANOPROST 0.005% OPHTH DROPS 2.5 ML BTL LEFT EYE SCH (19:58)
[2022-02-04] MEDS: traMADol 50 MG TAB PO PRN (22:47)
[2022-02-05] MEDS: ACETAMINOPHEN TAB 325 MG TAB PO PRN ×2 (04:06→18:03)
[2022-02-05 05:59] LABS: Chloride 103 mmol/L (98-107)
[2022-02-05 06:00] LABS: African American GFR (CKD) >90 (>60 ml/min/1.73 sqM); Anion Gap 3 mmol/L; Blood Urea Nitrogen 12 mg/dL (9-20); Calcium 7.4 mg/dL (8.4-10.2); Carbon Dioxide 28 mmol/L (22-30); Glucose 143 mg/dL (74-99); Non-African American GFR(CKD) 88 (>60 ml/min/1.73 sqM); Potassium 3.1 mmol/L (3.5-5.1); Sodium 134 mmol/L (137-145)
[2022-02-05] MEDS: PANTOPRAZOLE 40 MG TABLET PO SCH (06:10)
[2022-02-05] MEDS: oxyCODONE-APAP 5-325MG 1 EACH TAB PO PRN ×2 (06:12→21:49)
--- NOTE | 2022-02-05 06:20 | P.PN ---
Subjective Progress Note Date: 02/05/22 Principal diagnosis: Shortness of breath The patient is a pleasant 67-year-old gentleman with a past medical history significant for mild nonobstructive coronary artery disease as well as heart failure with preserved ejection fraction and also hypertension and dyslipidemia who presented to the emergency department with increasing shortness of breath associated with increasing lower exam and his edema and he was diagnosed with heart failure. Last echo showed preserved left ventricular systolic function February 042021 The patient was seen and evaluated this morning. He stated that the shortness of breath has improved. On examination he still have bilateral expiratory wheezing and severe bilateral lower except his edema and severe chronic skin changes. He has been diuresing well on the current dose of Lasix which is 20 mg IV twice a day. Was still waiting the results of the blood work from the morning including kidney function and electrolytes. The pressure continues to be soft. The last echo showed preserved left ventricular systolic function without suggest at this point continue the current medical regimen and continue monitor the kidney function and electrolytes. February 052021 The patient was seen and evaluated this morning. He is overall feeling slightly better. The lower extremity edema is better. The shortness of breath has improved. No symptoms of chest pain or chest discomfort. On examination he does have clear breathing sounds bilaterally with bilateral lower extremities edema which has definitely improved compared to before. The echo reviewed and showed preserved biventricular systolic function was no significant valvular abnormalities. He has been there is a very well on the current dose of Lasix. Creatinine continues to be stable. Pressure is soft but above 90 mmHg systolic. Objective - Vital Signs Vital signs: Vital Signs Temp 99 F 02/05/22 04:00 Pulse 89 02/05/22 04:00 Resp 16 02/05/22 04:00 BP 98/60 02/05/22 04:00 Pulse Ox 95 02/05/22 04:00 FiO2 Intake & Output 02/04/22 02/04/22 02/05/22 06:59 18:59 06:59 Intake Total 640 236 Output Total 600 1750 1650 Balance 40 1514 1650 Intake: Intake, IV Titration 100 Amount Piperacillin-Tazobactam 3 100 .375 gm In Sodium Chloride 0.9% 100 ml @ 25 mls/hr IVPB Q8HR [facility] Rx# :[id number] Oral 540 236 Output: Urine 600 1750 1650 Other: Voiding Method External Catheter External Catheter External Catheter # Bowel Movements 2 1 - Constitutional General appearance: Present: no acute distress - Respiratory Respiratory: bilateral: CTA - Cardiovascular Rhythm: regular - Labs CBC & Chem 7: 02/04/22 09:13 02/05/22 04:16 Labs: Abnormal Lab Results - Last 24 Hours (Table) 02/04/22 02/04/22 Range/Units 09:13 09:13 WBC 14.6 H (3.8-10.6) k/uL RBC 3.19 L (4.30-5.90) m/uL Hgb 10.0 L D (13.0-17.5) gm/dL Hct 30.1 L (39.0-53.0) % Neutrophils # 12.9 H (1.3-7.7) k/uL Lymphocytes # 0.7 L (1.0-4.8) k/uL Sodium 134 L (137-145) mmol/L Potassium 2.8 L (3.5-5.1) mmol/L Carbon Dioxide 31 H (22-30) mmol/L Glucose 139 H (74-99) mg/dL Calcium 7.4 L (8.4-10.2) mg/dL Microbiology - Last 24 Hours (Table) 02/03/22 06:30 Blood Culture Gram Stain - Preliminary Blood 02/03/22 06:30 Blood Culture - Final Blood Assessment and Plan Assessment: Assessment #1 shortness of breath which is likely to be multifocal #2 heart failure exacerbation secondary to heart failure with preserved ejection fraction with evidence of biventricular failure, right more than left #3 mild nonobstructive coronary artery disease #4 multiple comorbid conditions Plan #1 continue IV Lasix for additional 24 hours #2 continue monitor the kidney function and electrolytes #3 follow-up with the patient
[2022-02-05] MEDS: APIXABAN 5 MG TAB PO SCH ×2 (09:20→21:51)
[2022-02-05] MEDS: METOPROLOL SUCCINATE (ER) 50 MG TAB.ER.24H PO SCH (09:21)
[2022-02-05] MEDS: PIPERACILLIN-TAZOBACTAM 3.375 GM in SODIUM CHLORIDE 0.9% 100 ML IVPB SCH ×2 (09:21→16:42)
[2022-02-05] MEDS: BACLOFEN 10 MG TAB PO SCH ×2 (09:21→21:50)
[2022-02-05] MEDS: POTASSIUM CHLORIDE ER 20 MEQ TAB.ER PO SCH ×2 (09:21→21:50)
[2022-02-05] MEDS: FUROSEMIDE 10 MG/ML 2 ML VIAL IV SCH ×2 (09:21→21:50)
[2022-02-05] MEDS: DAPAGLIFLOZIN PROPANEDIOL 5 MG TABLET PO SCH (09:22)
--- NOTE | 2022-02-05 13:10 | P.PN ---
Subjective Progress Note Date: 02/04/22 67-year-old male presents emergency Department with chest pain. He does arrive from an ECF. Has a history of congestive heart failure, COPD, A. fib. He was reporting to staff that he was short of breath and having chest pain. They did give him 60 mg of IM Lasix and called an ambulance to bring him into the hospital. He states that he has left-sided chest pain which makes him feel short of breath. Admits to increased lower extremity edema. Admits to a productive cough. Patient does arrive with a low-grade fever. Denies sick contacts with similar symptoms. Patient does not wear oxygen. No current steroid use. No other alleviating, precipitating or modifying factors EKG reveals sinus tachycardia, heart rate 120, nonspecific STabnormalities in anterior leads. Echocardiogram 05/2021 revealed EF 5055 percent, trace mitral and trace tricuspid regurgitation Cardiac catheterization 07/2021 revealed intermediate disease involving the ostial left main appeared to be in the range of 3040 percent CTA chest reported no evidence of pulmonary embolism, right lower lobe patchy groundglass of PACs and consolidation consistent with pneumonia Laboratory reviewed, initial troponin 0.18, repeat negative, WBC 22.5, hemoglobin 12.3, platelets 268 sodium 137, potassium 2.3, BUN 24, serum creatin ine 1.07, magnesium 1.7, proBNP 559 Objective - Vital Signs Vital signs: Vital Signs Temp 98.8 F 02/04/22 08:57 Pulse 80 02/04/22 08:57 Resp 18 02/04/22 08:57 BP 99/48 02/04/22 08:57 Pulse Ox 92 L 02/04/22 08:57 FiO2 Intake & Output 02/03/22 02/04/22 02/04/22 18:59 06:59 18:59 Intake Total 625 640 118 Output Total 1400 600 750 Balance -775 40 -632 Weight 92.986 kg Intake: IV 625 Azithromycin 500 mg In 250 Sodium Chloride 0.9% 250 ml @ 250 mls/hr IVPB ONCE [facility] Rx#:[id number] Sodium Chloride 0.9% 1, 375 000 ml @ 75 mls/hr IV . [id number] [facility] Rx#:[id number] Intake, IV Titration 100 Amount Piperacillin-Tazobactam 3 100 .375 gm In Sodium Chloride 0.9% 100 ml @ 25 mls/hr IVPB Q8HR [facility] Rx# :[id number] Oral 540 118 Output: Urine 1400 600 750 Other: Voiding Method External Catheter External Catheter # Bowel Movements 2 - Exam - Constitutional General appearance: Present: average body habitus, cooperative, no acute distress Eyes: Present: anicteric sclerae, EOMI, PERRLA, normal appearance Neck: Present: normal ROM. Absent: lymphadenopathy, rigidity, thyromegaly Carotids: negative: bruit present Thyroid: bilateral: normal size, negative: enlarged, nodule Respiratory: bilateral: CTA, negative: rales, rhonchi, wheezing Cardiovascular: regular; normal: S1, S2 Gastrointestinal: Present: normal bowel sounds, soft. Absent: distended, organomegaly, tenderness Integumentary: Present: normal turgor. Absent: jaundiced, rash, ulcer Neurologic: Present: CNII-XII intact. Absent: focal deficits Musculoskeletal: Present: gait normal, strength equal bilaterally - Labs CBC & Chem 7: 02/04/22 09:13 02/05/22 04:16 Labs: Abnormal Lab Results - Last 24 Hours (Table) 02/03/22 02/04/22 02/04/22 Range/Units 08:58 09:13 09:13 WBC 14.6 H (3.8-10.6) k/uL RBC 3.19 L (4.30-5.90) m/uL Hgb 10.0 L D (13.0-17.5) gm/dL Hct 30.1 L (39.0-53.0) % Neutrophils # 12.9 H (1.3-7.7) k/uL Lymphocytes # 0.7 L (1.0-4.8) k/uL Sodium 134 L (137-145) mmol/L Potassium 2.8 L (3.5-5.1) mmol/L Carbon Dioxide 31 H (22-30) mmol/L Glucose 139 H (74-99) mg/dL Calcium 7.4 L (8.4-10.2) mg/dL Procalcitonin 2.90 H (0.02-0.09) ng/mL Microbiology - Last 24 Hours (Table) 02/03/22 06:30 Blood Culture - Final Blood
--- NOTE | 2022-02-05 15:59 | P.PN ---
Subjective Progress Note Date: 02/04/22 Principal diagnosis: Pneumonia Patient is a 67-year-old male with a past medical history pertinent for congestive heart failure COPD presenting to the ER for evaluation of chest pain and shortness of breath, also complaining of a cough patient did have elevated white count CT angiogram of the chest did shows right lower lobe opacity concerning for pneumonia. On today's evaluation that is 02/04/2022, the patient did have a low-grade fever of 99.9 around midnight however the patient is afebrile since then, the patient is breathing comfortably on room air. Denies having chest pain continued to have a cough or bring up any sputum no abdominal pain no diarrhea Objective - Vital Signs Vital signs: Vital Signs Temp 98.8 F 02/04/22 08:57 Pulse 97 02/04/22 15:40 Resp 18 02/04/22 15:15 BP 104/55 02/04/22 15:40 Pulse Ox 95 02/04/22 15:40 FiO2 Intake & Output 02/03/22 02/04/22 02/04/22 18:59 06:59 18:59 Intake Total 625 640 118 Output Total 1400 600 750 Balance -775 40 -632 Weight 92.986 kg Intake: IV 625 Azithromycin 500 mg In 250 Sodium Chloride 0.9% 250 ml @ 250 mls/hr IVPB ONCE [facility] Rx#:[id number] Sodium Chloride 0.9% 1, 375 000 ml @ 75 mls/hr IV . [id number] [facility] Rx#:[id number] Intake, IV Titration 100 Amount Piperacillin-Tazobactam 3 100 .375 gm In Sodium Chloride 0.9% 100 ml @ 25 mls/hr IVPB Q8HR [facility] Rx# :[id number] Oral 540 118 Output: Urine 1400 600 750 Other: Voiding Method External Catheter External Catheter External Catheter # Bowel Movements 2 - Exam GENERAL DESCRIPTION: An elderly male lying in bed in no distress RESPIRATORY SYSTEM: Unlabored breathing , decreased breath sounds at bases HEART: S1 S2 regular rate and rhythm , ABDOMEN: Soft , no tenderness EXTREMITIES: No edema feet - Labs CBC & Chem 7: 02/04/22 09:13 02/05/22 04:16 Labs: Abnormal Lab Results - Last 24 Hours (Table) 02/04/22 02/04/22 Range/Units 09:13 09:13 WBC 14.6 H (3.8-10.6) k/uL RBC 3.19 L (4.30-5.90) m/uL Hgb 10.0 L D (13.0-17.5) gm/dL Hct 30.1 L (39.0-53.0) % Neutrophils # 12.9 H (1.3-7.7) k/uL Lymphocytes # 0.7 L (1.0-4.8) k/uL Sodium 134 L (137-145) mmol/L Potassium 2.8 L (3.5-5.1) mmol/L Carbon Dioxide 31 H (22-30) mmol/L Glucose 139 H (74-99) mg/dL Calcium 7.4 L (8.4-10.2) mg/dL Microbiology - Last 24 Hours (Table) 02/03/22 06:30 Blood Culture - Final Blood Assessment and Plan (1) HCAP (healthcare-associated pneumonia) Current Visit: Yes Status: Acute Code(s): J18.9 - PNEUMONIA, UNSPECIFIED ORGANISM SNOMED Code(s): 815499753 Plan: 1patient presented to hospital with increasing shortness of breath chest pain in this patient did have evidence of right-sided pneumonia patient did have elevated white count has always elevated lactic acid meeting criteria for SIRS/sepsis in a group home resident will need to cover for the resistant gram-negative be the likely pathogen. 2blood cultures has been obtained those will be followed , sputum has been requested but not collected. 3patient to continue with Zosyn 3.375 g every 8 hours. Time with Patient: Less than 30
--- NOTE | 2022-02-05 16:00 | P.PN ---
Subjective Progress Note Date: 02/05/22 Principal diagnosis: Pneumonia Patient is a 67-year-old male with a past medical history pertinent for congestive heart failure COPD presenting to the ER for evaluation of chest pain and shortness of breath, also complaining of a cough patient did have elevated white count CT angiogram of the chest did shows right lower lobe opacity concerning for pneumonia. On today's evaluation that is 02/05/2022, the patient is afebrile today, the patient is breathing comfortably on room air. The patient denies having chest pain , the patient continued to have a cough but not bring up any sputum no abdominal pain no diarrhea Objective - Vital Signs Vital signs: Vital Signs Temp 98.7 F 02/05/22 09:20 Pulse 79 02/05/22 15:48 Resp 18 02/05/22 15:48 BP 99/56 02/05/22 12:00 Pulse Ox 95 02/05/22 12:00 FiO2 Intake & Output 02/04/22 02/05/22 02/05/22 18:59 06:59 18:59 Intake Total 236 480 Output Total 1750 1650 Balance -1514 -1650 480 Intake: Oral 236 480 Output: Urine 1750 1650 Other: Voiding Method External Catheter External Catheter External Catheter # Bowel Movements 1 - Exam GENERAL DESCRIPTION: An elderly male lying in bed in no distress RESPIRATORY SYSTEM: Unlabored breathing , decreased breath sounds at bases HEART: S1 S2 regular rate and rhythm , ABDOMEN: Soft , no tenderness EXTREMITIES: No edema feet - Labs CBC & Chem 7: 02/04/22 09:13 02/05/22 04:16 Labs: Abnormal Lab Results - Last 24 Hours (Table) 02/05/22 Range/Units 04:16 Sodium 134 L (137-145) mmol/L Potassium 3.1 L (3.5-5.1) mmol/L Glucose 143 H (74-99) mg/dL Calcium 7.4 L (8.4-10.2) mg/dL Microbiology - Last 24 Hours (Table) 02/03/22 06:30 Blood Culture Gram Stain - Preliminary Blood Blood Culture - Preliminary Coagulase Negative Staph Assessment and Plan (1) HCAP (healthcare-associated pneumonia) Current Visit: Yes Status: Acute Code(s): J18.9 - PNEUMONIA, UNSPECIFIED ORGANISM SNOMED Code(s): 317628895 Plan: 1patient presented to hospital with increasing shortness of breath chest pain in this patient did have evidence of right-sided pneumonia patient did have elevated white count has always elevated lactic acid meeting criteria for SIRS/sepsis in a alf resident will need to cover for the resistant gram-negative be the likely pathogen. 2blood cultures has been negative so far , sputum has been requested but not collected. Patient did have elevated pro-calcitonin 2.90 3patient seemed to have shown some clinical improvement and will continue with Zosyn 3.375 g every 8 hours. Time with Patient: Less than 30
--- NOTE | 2022-02-05 18:11 | P.PN ---
Subjective Progress Note Date: 02/05/22 Principal diagnosis: Tachycardia; questionable A. fib with RVR versus sinus tachycardia Pneumonia/sepsis Acute on chronic exacerbation CHF 67-year-old male presents emergency Department with chest pain. He does arrive from an ECF. Has a history of congestive heart failure, COPD, A. fib. He was reporting to staff that he was short of breath and having chest pain. They did give him 60 mg of IM Lasix and called an ambulance to bring him into the [facility]. He states that he has left-sided chest pain which makes him feel short of breath. Admits to increased lower extremity edema. Admits to a productive cough. Patient does arrive with a low-grade fever. Denies sick contacts with similar symptoms. Patient does not wear oxygen. No current steroid use. No other alleviating, precipitating or modifying factors EKG reveals sinus tachycardia, heart rate 120, nonspecific STabnormalities in anterior leads. Echocardiogram 05/2021 revealed EF 5055 percent, trace mitral and trace tricuspid regurgitation Cardiac catheterization 07/2021 revealed intermediate disease involving the ostial left main appeared to be in the range of 3040 percent CTA chest reported no evidence of pulmonary embolism, right lower lobe patchy groundglass of PACs and consolidation consistent with pneumonia Laboratory reviewed, initial troponin 0.18, repeat negative, WBC 22.5, hemoglobin 12.3, platelets 268 sodium 137, potassium 2.3, BUN 24, serum creatinine 1.07, magnesium 1.7, proBNP 559 02/05/2022 Patient is seen and evaluated in room at bedside; denies having chest pain , the patient continued to have a cough but not bring up any sputum no abdominal pain no diarrhea patient presented to hospital with increasing shortness of breath chest pain in this patient did have evidence of right-sided pneumonia patient did have elevated white count has always elevated lactic acid meeting criteria for SIRS/sepsis in a residential resident will need to cover for the resistant gram-negative be the likely pathogen. blood cultures has been negative so far , sputum has been requested but not collected. Patient did have elevated pro-calcitonin 2.90 patient seemed to have shown some clinical improvement and will continue with Zosyn 3.375 g every 8 hours. The echo reviewed and showed preserved biventricular systolic function was no significant valvular abnormalities. He has been there is a very well on the current dose of Lasix. Creatinine continues to be stable. Pressure is soft but above 90 mmHg systolic. -- continue IV Lasix for additional 24 hours Objective - Vital Signs Vital signs: Vital Signs Temp 98.7 F 02/05/22 09:20 Pulse 79 02/05/22 10:32 Resp 18 02/05/22 10:32 BP 107/71 02/05/22 09:18 Pulse Ox 95 02/05/22 09:18 FiO2 Intake & Output 02/04/22 02/05/22 02/05/22 18:59 06:59 18:59 Intake Total 236 480 Output Total 1750 1650 Balance -1514 -1650 480 Intake: Oral 236 480 Output: Urine 1750 1650 Other: Voiding Method External Catheter External Catheter External Catheter # Bowel Movements 1 - Exam - Constitutional General appearance: Present: average body habitus, cooperative, no acute distress Eyes: Present: anicteric sclerae, EOMI, PERRLA, normal appearance Neck: Present: normal ROM. Absent: lymphadenopathy, rigidity, thyromegaly Carotids: negative: bruit present Thyroid: bilateral: normal size, negative: enlarged, nodule Respiratory: bilateral: CTA, negative: rales, rhonchi, wheezing Cardiovascular: regular; normal: S1, S2 Gastrointestinal: Present: normal bowel sounds, soft. Absent: distended, organomegaly, tenderness Integumentary: Present: normal turgor. Absent: jaundiced, rash, ulcer Neurologic: Present: CNII-XII intact. Absent: focal deficits Musculoskeletal: Present: gait normal, strength equal bilaterally - Labs CBC & Chem 7: 02/04/22 09:13 02/05/22 04:16 Labs: Abnormal Lab Results - Last 24 Hours (Table) 02/05/22 Range/Units 04:16 Sodium 134 L (137-145) mmol/L Potassium 3.1 L (3.5-5.1) mmol/L Glucose 143 H (74-99) mg/dL Calcium 7.4 L (8.4-10.2) mg/dL Microbiology - Last 24 Hours (Table) 02/03/22 06:30 Blood Culture Gram Stain - Preliminary Blood Blood Culture - Preliminary Coagulase Negative Staph 02/03/22 06:30 Blood Culture - Final Blood Assessment and Plan Assessment: 1. Tachycardia/questionable A. fib with RVR; monitor EKG and trend troponin; cardiology to evaluate and make recommendations 2. Pneumonia/sepsis; currently on ceftriaxone 2 g IV daily along with azithromycin 500 mg IV daily; we will monitor CBC, CRP and pro-calcitonin; IDs consulted for further recommendations 3. Acute on chronic CHF with preserved EF; echocardiogram completed on 06/17, revealed an EF of 50-55% - Patient has been placed on IV Lasix, 20 mg IV every 12 hours; we will monitor strict ARIS's, daily weights, renal function and electrolytes; losartan fluid restricted diet; continue with home dose of Farxiga 4. History of hypertension; currently hypotensive; we will plan to hold antihypertensive therapy due to soft blood pressure 5. Hyperlipidemia; Lipitor 80 mg by mouth daily at bedtime 6. History of paroxysmal atrial fibrillation; patient is rate controlled on metoprolol and remains on anticoagulation with Eliquis 7. Coronary artery disease; last heart catheterization completed in July 2021 w [facility] revealed intermediate disease involving ostial left main in the range of 30-40%
[2022-02-05] MEDS: ATORVASTATIN 80 MG TAB PO SCH (21:50)
[2022-02-05] MEDS: LATANOPROST 0.005% OPHTH DROPS 2.5 ML BTL LEFT EYE SCH (21:51)
[2022-02-06] MEDS: PIPERACILLIN-TAZOBACTAM 3.375 GM in SODIUM CHLORIDE 0.9% 100 ML IVPB SCH ×4 (01:37→23:15)
[2022-02-06] MEDS: oxyCODONE-APAP 5-325MG 1 EACH TAB PO PRN (02:26)
[2022-02-06] MEDS: PANTOPRAZOLE 40 MG TABLET PO SCH (06:18)
[2022-02-06 08:03] LABS: Basophils % (A) 0 %; Eosinophils # (A) 0.2 k/uL (0-0.7); Eosinophils % (A) 2 %; HCT 31.7 % (39.0-53.0); HGB 10.3 gm/dL (13.0-17.5); Lymphocytes # (A) 1.1 k/uL (1.0-4.8); Lymphocytes % (A) 10 %; MCH 30.8 pg (25.0-35.0); MCHC 32.4 g/dL (31.0-37.0); MCV 95.1 fL (80.0-100.0); Mean Platelet Volume 8.7; Monocytes # (A) 0.5 k/uL (0-1.0); Monocytes % (A) 5 %; Neutrophils # (A) 9.1 k/uL (1.3-7.7); Neutrophils % (A) 81 %; Platelet Count 265 k/uL (150-450); RBC 3.33 m/uL (4.30-5.90); RDW 13.5 % (11.5-15.5); WBC 11.3 k/uL (3.8-10.6)
[2022-02-06 08:25] LABS: African American GFR (CKD) >90 (>60 ml/min/1.73 sqM); Anion Gap 2 mmol/L; Blood Urea Nitrogen 8 mg/dL (9-20); Calcium 7.4 mg/dL (8.4-10.2); Carbon Dioxide 27 mmol/L (22-30); Chloride 105 mmol/L (98-107); Glucose 107 mg/dL (74-99); Non-African American GFR(CKD) >90 (>60 ml/min/1.73 sqM); Potassium 3.8 mmol/L (3.5-5.1); Sodium 134 mmol/L (137-145)
[2022-02-06] MEDS: METOPROLOL SUCCINATE (ER) 50 MG TAB.ER.24H PO SCH (08:45)
[2022-02-06] MEDS: FUROSEMIDE 10 MG/ML 2 ML VIAL IV SCH (08:46)
[2022-02-06] MEDS: BACLOFEN 10 MG TAB PO SCH ×2 (08:46→21:11)
[2022-02-06] MEDS: POTASSIUM CHLORIDE ER 20 MEQ TAB.ER PO SCH ×2 (08:46→21:11)
[2022-02-06] MEDS: DAPAGLIFLOZIN PROPANEDIOL 5 MG TABLET PO SCH (08:46)
[2022-02-06] MEDS: APIXABAN 5 MG TAB PO SCH ×2 (08:50→21:11)
[2022-02-06 11:43] LABS: Glucose,Whole Blood 132 mg/dL (70-110)
--- NOTE | 2022-02-06 13:04 | P.PN ---
Subjective Progress Note Date: 02/06/22 This is a pleasant 67-year-old gentleman with past medical history significant for mild obstructive coronary artery disease, heart failure with preserved ejection fraction, hypertension, hyperlipidemia. Presented to the emergency department with increasing shortness of breath associated with increasing low lower extremity edema. He was initiated on IV Lasix 20 mg every 12 hours. His recent echocardiogram was reviewed and showed a normal LV systolic function. Labs this morning showed stable renal function. On examination he sitting up in a chair. His overall feeling significantly better. He is anxious to go home. Objective - Vital Signs Vital signs: Vital Signs Temp 99.9 F H 02/06/22 08:44 Pulse 98 02/06/22 08:44 Resp 16 02/06/22 08:44 BP 111/63 02/06/22 08:44 Pulse Ox 97 02/06/22 08:44 FiO2 Intake & Output 02/05/22 02/06/22 02/06/22 18:59 06:59 18:59 Intake Total 480 Output Total 800 800 Balance 480 -800 -800 Intake: Oral 480 Output: Urine 800 800 Other: Voiding Method External Catheter External Catheter External Catheter - Exam PHYSICAL EXAMINATION: HEENT: Head is atraumatic, normocephalic. Pupils equal, round. Neck is supple. There is no elevated jugular venous pressure. HEART EXAMINATION: Heart sounds regular, S1 and S2 normal. No murmur or gallop heard. CHEST EXAMINATION: Lungs are clear to auscultation. No chest wall tenderness is noted on palpation or with deep breathing. ABDOMEN: Soft, nontender. Bowel sounds are heard. No organomegaly noted. EXTREMITIES: 2+ peripheral pulses with no evidence of peripheral edema and no calf tenderness noted. NEUROLOGIC patient is awake, alert and oriented x3. . - Labs CBC & Chem 7: 02/06/22 07:13 02/06/22 07:13 Labs: Abnormal Lab Results - Last 24 Hours (Table) 02/06/22 02/06/22 02/06/22 Range/Units 07:13 07:13 11:41 WBC 11.3 H (3.8-10.6) k/uL RBC 3.33 L (4.30-5.90) m/uL Hgb 10.3 L (13.0-17.5) gm/dL Hct 31.7 L (39.0-53.0) % Neutrophils # 9.1 H (1.3-7.7) k/uL Sodium 134 L (137-145) mmol/L BUN 8 L (9-20) mg/dL Glucose 107 H (74-99) mg/dL POC Glucose (mg/dL) 132 H (70-110) mg/dL Calcium 7.4 L (8.4-10.2) mg/dL Microbiology - Last 24 Hours (Table) 02/03/22 06:30 Blood Culture Gram Stain - Preliminary Blood Blood Culture - Preliminary Coagulase Negative Staph Assessment and Plan Assessment: #1 shortness of breath which is likely to be multifocal #2 heart failure exacerbation secondary to heart failure with preserved ejection fraction #3 mild nonobstructive coronary artery disease #4 multiple comorbid conditions Plan: From cardiology's perspective we will transition the patient to oral Lasix. From our standpoint the patient may be discharged home he will follow-up in the office with Dr. Holly. PATIENT FINANCIAL SERVICES COORDINATOR note has been reviewed, I agree with a documented findings and plan of care. Patient was seen and examined.
--- NOTE | 2022-02-06 15:29 | P.DS ---
Providers Date of admission: 02/03/22 06:39 Attending physician: Luan Page MD Consults: 02/03/22 07:49 Consult Physician Stat Consulting Provider: Zhen Holly Consult Reason/Comments: chest pain Do you want consulting provider notified?: Yes 02/03/22 07:50 Consult Physician Stat Consulting Provider: Olga Cueva Consult Reason/Comments: pneumonia Do you want consulting provider notified?: Yes Primary care physician: Ankit May Hospital Course: Final Diagnosis Right lower lobe pneumonia with sepsis present on admission Acute on chronic CHF with preserved ejection fraction diuresed well with IV Lasix and has been transitioned back to oral Lasix History of hypertension currently with low blood pressures Hyperlipidemia History of paroxysmal atrial fibrillation with questionable rapid ventricular rate versus tachycardia on admission continue the metoprolol and is anticoagulated with eliquis Coronary artery disease with known intermediate disease involving ostial left main in the range of 30-40% found on cardiac catheterization in July 2021 History COPD not in acute exacerbation Full Code Discharge Disposition Patient is stable for discharge back to ECF. He is currently on room air and improving with antibiotics. He has been transitioned back to oral lasix and cleared by cardiology for discharge. Recommend to follow up with cardiology on DC in 1 to 2 weeks. Repeat BMP in 2 to 3 days. Hospital Course This is a 67-year-old male with past medical history significant for congestive heart failure, COPD, hyperlipidemia, hypertension, paroxysmal atrial fibrillation. Patient presents to the hospital with concern for shortness of breath as well as chest pain and cough. Labs on admission are showing a white count of 22.5, hemoglobin 12.3, lactic acid 3.2. Patient was started on empiric antibiotic coverage with IV rocephin and infectious disease was consulted. Chest CT showing evidence for right lower lobe pneumonia and progressive terminal found to be 2.90. Patient met sepsis protocol. Transitioned to IV Zosyn, lactic acid normalized and white count is down to 11.3. He was also found to be in a mild acute CHF and was treated with IV Lasix, he diuresed well. Recently had a echo stress test back in May 2021 which showed a preserved ejection fraction. Cardiology evaluated patient's admission as well and transitioned back to oral Lasix 60 mg by mouth daily and is recommended to follow-up on discharge. Overall patient has clinically improved and anticipating discharge back to ECF today. 02/06/2022 Patient is evaluated since the chair. Denies any chest pain, denies shortness of breath. His lungs are clear to auscultation today. He will like to be discharged back to the ECF. No acute complaints overnight. Cardiology has cleared for discharge disposition back to oral Lasix. White count today is 11.3, hemoglobin 10.3, sodium 134, potassium 3.8, blood glucose 132, calcium 7.4. We will order patient an incentive spirometer for discharge. He did have a low-grade temp today 99.7. Blood pressures while 105/66, heart rate 90s normal sinus rhythm, 98% on room air. Lower extremity edema has improved. Alert x 3 focal neurological exam is negative. Has some generalized weakness. Will be discharged with the above mentioned recommendations. Total time taken in discharge planning greater than 35 minutes. Please see medication reconciliation for list of current medication. Thank you for allowing us participate in the care of this patient. The impression and plan of care has been dictated by Nurse David Zhu ctcoleener as directed. Dr. Mariah MD I have performed a history and physical examination and medical decision making of this patient, discussed the same with the dictator, and agree with the dictat ors assessment and plan as written, documented as a scribe. Based on total visit time, I have performed more than 50% of this visit. Patient Condition at Discharge: Stable Plan - Discharge Summary Discharge Rx Participant: Yes New Discharge Prescriptions: New Menthol-Zinc Oxide Oint [Calmoseptine Ointment] 1 applic TOPICAL TID PRN each PRN Reason: Skin Irritation Furosemide [Lasix] 60 mg PO DAILY tab Pantoprazole [Protonix] 40 mg PO AC-BRKFST tab Continue Latanoprost [Xalatan 0.005%] 1 drop LEFT EYE HS Albuterol Nebulized [Ventolin Nebulized] 2.5 mg INHALATION RT-Q6H PRN PRN Reason: Shortness Of Breath Albuterol Sulfate [Proventil Hfa] 2 puff INHALATION RT-Q6H PRN PRN Reason: Shortness Of Breath bisacodyL [Dulcolax] 5 mg PO DAILY PRN tab PRN Reason: Constipation Mag Hydrox/Al Hydrox/Simeth [Maalox] 30 ml PO Q4HR PRN ml PRN Reason: Gi Upset Diclofenac Sodium Gel [Voltaren Gel] 4 gm TOPICAL Q8HR@0500,1300,2100 PRN PRN Reason: Pain Saccharomyces Boulardii [Saccharomycin Df] 250 mg PO BID oxyCODONE-APAP 5-325MG [Percocet 5-325 mg] 1 tab PO Q4H PRN #4 tab PRN Reason: Pain traMADol HCl [Ultram] 50 mg PO Q8HR PRN #3 tab PRN Reason: Pain Apixaban [Eliquis] 5 mg PO BID tab Metoprolol Succinate (ER) [Toprol XL] 50 mg PO DAILY Acetaminophen Tab [Tylenol] 650 mg PO Q6HR PRN tab PRN Reason: Mild Pain Or Fever > 100.5 Baclofen 10 mg PO BID Ipratropium-Albuterol Nebulize [Duoneb 0.5 mg-3 mg/3 ml Soln] 3 ml INHALATION Q6HR PRN PRN Reason: sob Potassium Chloride [Klor-Con M20] 40 meq PO BID Atorvastatin [Lipitor] 80 mg PO HS Empagliflozin [Jardiance] 10 mg PO DAILY Multivitamins, Thera [Multivitamin (formulary)] 1 tab PO BID Loperamide HCl [Loperamide] 2 mg PO DAILY PRN PRN Reason: Diarrhea Discontinued oxyCODONE-APAP 5-325MG [Percocet 5-325 mg] 1 tab PO Q8HR@0500,1300,2100 Spironolactone [Aldactone] 25 mg PO DAILY Furosemide [Lasix] 60 mg PO DAILY Furosemide 60 mg IM ONCE Discharge Medication List Latanoprost [Xalatan 0.005%] 1 drop LEFT EYE HS 10/31/17 [History] Albuterol Nebulized [Ventolin Nebulized] 2.5 mg INHALATION RT-Q6H PRN 08/13/20 [History] Albuterol Sulfate [Proventil Hfa] 2 puff INHALATION RT-Q6H PRN 03/06/21 [History] Acetaminophen Tab [Tylenol] 650 mg PO Q6HR PRN tab 06/14/21 [Rx] Apixaban [Eliquis] 5 mg PO BID tab 06/14/21 [Rx] Mag Hydrox/Al Hydrox/Simeth [Maalox] 30 ml PO Q4HR PRN ml 06/14/21 [Rx] Metoprolol Succinate (ER) [Toprol XL] 50 mg PO DAILY 06/14/21 [Rx] bisacodyL [Dulcolax] 5 mg PO DAILY PRN tab 06/14/21 [Rx] Baclofen 10 mg PO BID 08/15/21 [History] Ipratropium-Albuterol Nebulize [Duoneb 0.5 mg-3 mg/3 ml Soln] 3 ml INHALATION Q6HR PRN 08/15/21 [History] Atorvastatin [Lipitor] 80 mg PO HS 10/19/21 [History] Diclofenac Sodium Gel [Voltaren Gel] 4 gm TOPICAL Q8HR@0500,1300,2100 PRN 10/19/21 [History] Potassium Chloride [Klor-Con M20] 40 meq PO BID 10/19/21 [History] Empagliflozin [Jardiance] 10 mg PO DAILY 11/22/21 [History] Loperamide HCl [Loperamide] 2 mg PO DAILY PRN 01/06/22 [History] Multivitamins, Thera [Multivitamin (formulary)] 1 tab PO BID 01/06/22 [History] Saccharomyces Boulardii [Saccharomycin Df] 250 mg PO BID 02/03/22 [History] Furosemide [Lasix] 60 mg PO DAILY tab 02/06/22 [Rx] Menthol-Zinc Oxide Oint [Calmoseptine Ointment] 1 applic TOPICAL TID PRN each 02/06/22 [Rx] Pantoprazole [Protonix] 40 mg PO AC-BRKFST tab 02/06/22 [Rx] oxyCODONE-APAP 5-325MG [Percocet 5-325 mg] 1 tab PO Q4H PRN #4 tab 02/06/22 [Rx] traMADol HCl [Ultram] 50 mg PO Q8HR PRN #3 tab 02/06/22 [Rx] Follow up Appointment(s)/Referral(s): Zhen Holly MD [STAFF PHYSICIAN] - 1 Week Ankit May MD [Primary Care Provider] - 1-2 days Olga Cueva MD [STAFF PHYSICIAN] - 1 Week Ambulatory/Diagnostic Orders: Basic Metabolic Panel [LAB.AMB] Time Frame: 2 Days, Location: None Selected Activity/Diet/Wound Care/Special Instructions: Continue lasix as prescribed and follow up with cardiology Continue incentive spirometer Discharge Disposition: TRANSFER TO SNF/ECF
[2022-02-06] MEDS ORDERED: METOPROLOL TARTRATE 25 MG TAB PO STA (15:31)
[2022-02-06] MEDS: ACETAMINOPHEN TAB 325 MG TAB PO PRN (15:57)
[2022-02-06] MEDS: LATANOPROST 0.005% OPHTH DROPS 2.5 ML BTL LEFT EYE SCH (21:11)
[2022-02-06] MEDS: ATORVASTATIN 80 MG TAB PO SCH (21:11)
[2022-02-06] MEDS: traMADol 50 MG TAB PO PRN (22:31)
[2022-02-07] MEDS: PANTOPRAZOLE 40 MG TABLET PO SCH (06:48)
[2022-02-07] MEDS: PIPERACILLIN-TAZOBACTAM 3.375 GM in SODIUM CHLORIDE 0.9% 100 ML IVPB SCH ×3 (08:53→23:00)
[2022-02-07] MEDS: APIXABAN 5 MG TAB PO SCH ×2 (08:54→20:55)
[2022-02-07] MEDS: DAPAGLIFLOZIN PROPANEDIOL 10 MG TABLET PO SCH ×2 (08:54→09:00)
[2022-02-07] MEDS: BACLOFEN 10 MG TAB PO SCH ×2 (08:54→20:55)
[2022-02-07] MEDS: METOPROLOL SUCCINATE (ER) 50 MG TAB.ER.24H PO SCH (08:54)
[2022-02-07] MEDS: POTASSIUM CHLORIDE ER 20 MEQ TAB.ER PO SCH ×2 (08:55→20:55)
[2022-02-07] MEDS: FUROSEMIDE 20 MG TAB PO SCH (08:55)
[2022-02-07 10:09] LABS: Basophils # (A) 0.1 k/uL (0-0.2); Basophils % (A) 1 %; Eosinophils # (A) 0.4 k/uL (0-0.7); Eosinophils % (A) 3 %; HCT 31.2 % (39.0-53.0); HGB 10.6 gm/dL (13.0-17.5); Lymphocytes % (A) 9 %; MCH 32.1 pg (25.0-35.0); MCHC 33.9 g/dL (31.0-37.0); MCV 94.7 fL (80.0-100.0); Mean Platelet Volume 8.1; Monocytes # (A) 0.8 k/uL (0-1.0); Monocytes % (A) 7 %; Neutrophils # (A) 8.7 k/uL (1.3-7.7); Neutrophils % (A) 79 %; Platelet Count 291 k/uL (150-450); RDW 12.9 % (11.5-15.5); WBC 11.1 k/uL (3.8-10.6)
[2022-02-07 10:27] LABS: African American GFR (CKD) >90 (>60 ml/min/1.73 sqM); Anion Gap 4 mmol/L; Blood Urea Nitrogen 9 mg/dL (9-20); Carbon Dioxide 27 mmol/L (22-30); Chloride 103 mmol/L (98-107); Glucose 123 mg/dL (74-99); Non-African American GFR(CKD) >90 (>60 ml/min/1.73 sqM); Sodium 134 mmol/L (137-145)
--- NOTE | 2022-02-07 11:34 | XR ---
EXAMINATION TYPE: XR chest 1V portable DATE OF EXAM: 02/07/2022 COMPARISON: 02/04/2022 HISTORY: Cough TECHNIQUE: Single frontal view of the chest is obtained. FINDINGS: A right lower lobe infiltrate. Hyperinflation suggests COPD. Biapical pleural thickening. Arthropathy of the shoulders with postsurgical change in the left. Degenerative changes of the spine. Heart size normal. No overt failure. IMPRESSION: 1. Right lower lobe pneumonia. 2. COPD
--- NOTE | 2022-02-07 13:28 | P.PN ---
Subjective Progress Note Date: 02/07/22 Principal diagnosis: Tachycardia; questionable A. fib with RVR versus sinus tachycardia Pneumonia/sepsis Acute on chronic exacerbation CHF 67-year-old male presents emergency Department with chest pain. He does arrive from an ECF. Has a history of congestive heart failure, COPD, A. fib. He was reporting to staff that he was short of breath and having chest pain. They did give him 60 mg of IM Lasix and called an ambulance to bring him into the [facility]. He states that he has left-sided chest pain which makes him feel short of breath. Admits to increased lower extremity edema. Admits to a productive cough. Patient does arrive with a low-grade fever. Denies sick contacts with similar symptoms. Patient does not wear oxygen. No current steroid use. No other alleviating, precipitating or modifying factors EKG reveals sinus tachycardia, heart rate 120, nonspecific STabnormalities in anterior leads. Echocardiogram 05/2021 revealed EF 5055 percent, trace mitral and trace tricuspid regurgitation Cardiac catheterization 07/2021 revealed intermediate disease involving the ostial left main appeared to be in the range of 3040 percent CTA chest reported no evidence of pulmonary embolism, right lower lobe patchy groundglass of PACs and consolidation consistent with pneumonia Laboratory reviewed, initial troponin 0.18, repeat negative, WBC 22.5, hemoglobin 12.3, platelets 268 sodium 137, potassium 2.3, BUN 24, serum creatinine 1.07, magnesium 1.7, proBNP 559 02/05/2022 Patient is seen and evaluated in room at bedside; denies having chest pain , the patient continued to have a cough but not bring up any sputum no abdominal pain no diarrhea patient presented to hospital with increasing shortness of breath chest pain in this patient did have evidence of right-sided pneumonia patient did have elevated white count has always elevated lactic acid meeting criteria for SIRS/sepsis in a group home resident will need to cover for the resistant gram-negative be the likely pathogen. blood cultures has been negative so far , sputum has been requested but not collected. Patient did have elevated pro-calcitonin 2.90 patient seemed to have shown some clinical improvement and will continue with Zosyn 3.375 g every 8 hours. The echo reviewed and showed preserved biventricular systolic function was no significant valvular abnormalities. He has been there is a very well on the current dose of Lasix. Creatinine continues to be stable. Pressure is soft but above 90 mmHg systolic. -- continue IV Lasix for additional 24 hours 02/06/2022 Patient is evaluated since the chair. Denies any chest pain, denies shortness of breath. His lungs are clear to auscultation today. He will like to be discharged back to the ECF. No acute complaints overnight. Cardiology has cleared for discharge disposition back to oral Lasix. White count today is 11.3, hemoglobin 10.3, sodium 134, potassium 3.8, blood glucose 132, calcium 7.4. We will order patient an incentive spirometer for discharge. He did have a low-grade temp today 99.7. Blood pressures while 105/66, heart rate 90s normal sinus rhythm, 98% on room air. Lower extremity edema has improved. Alert x 3 focal neurological exam is negative. Has some generalized weakness. Will be discharged with the above mentioned recommendations. 02/07/2022 Patient developed fever yesterday afternoon 100.8 and 100.7 this morning. Repeat chest xray was done showing increasing right basilar infiltrate and atelectasis. Repeat blood culture ordered as well as sputum and urine culture. Patient has worsening lung sounds right base as well as cough which has developed overnight. Rule out aspiration as well. White count is 11.1, hgb 10.6. Sodium 134, blood glucose 123. Continues on IV zosyn, infectious disease following. Review of Systems Constitutional: Denied any fatigue Reports fever Cardio vascular: denied any chest pain, palpitations Gastrointestinal: denied any nausea, vomiting, diarrhea Pulmonary: Denied any shortness of breath Reports cough Neurologic denied any new focal deficits All inpatient medications were reviewed and appropriate changes in these medications as dictated in the interval history and assessment and plan. PHYSICAL EXAMINATION: GENERAL: The patient is alert and oriented x3, not in any acute distress. Well developed, well nourished. HEENT: Pupils are round and equally reacting to light. EOMI. No scleral icterus. No conjunctival pallor. Normocephalic, atraumatic. No pharyngeal erythema. No thyromegaly. CARDIOVASCULAR: S1 and S2 present. No murmurs, rubs, or gallops. PULMONARY: Course rhonchi right base, cough ABDOMEN: Soft, nontender, nondistended, normoactive bowel sounds. No palpable organomegaly. MUSCULOSKELETAL: No joint swelling or deformity. EXTREMITIES: No cyanosis, clubbing, or pedal edema. NEUROLOGICAL: Gross neurological examination did not reveal any focal deficits. SKIN: No rashes. Assessment and Plan Assessment Right lower lobe pneumonia with sepsis present on admission with worsening right infiltrate Acute on chronic CHF with preserved ejection fraction diuresed well with IV Lasix and has been transitioned back to oral Lasix History of hypertension currently normotensive blood pressure Hyperlipidemia History of paroxysmal atrial fibrillation with questionable rapid ventricular rate versus tachycardia on admission continue the metoprolol and is anticoagulated with eliquis Coronary artery disease with known intermediate disease involving ostial left main in the range of 30-40% found on cardiac catheterization in July 2021 History COPD not in acute exacerbation GI prophylaxis DVT prophylaxis Full Code Plan Continue oral lasix Continue antibiotics further adjustments made by ID Repeat cultures today Discharge on hold The impression and plan of care has been dictated by Kathryn Magallon, Nurse Practitioner as directed. Dr. Mariah MD I have performed a history and physical examination and medical decision making of this patient, discussed the same with the dictator, and agree with the dictators assessment and plan as written, documented as a scribe. Based on total visit time, I have performed more than 50% of this visit. Objective - Vital Signs Vital signs: Vital Signs Temp 99.6 F 02/07/22 12:00 Pulse 103 H 02/07/22 12:00 Resp 16 02/07/22 12:00 BP 115/67 02/07/22 12:00 Pulse Ox 99 02/07/22 12:00 FiO2 Intake & Output 02/06/22 02/07/22 02/07/22 18:59 06:59 18:59 Intake Total 180 100 Output Total 800 525 600 Balance -800 -345 -500 Intake: Intake, IV Titration 100 Amount Piperacillin-Tazobactam 3 100 .375 gm In Sodium Chloride 0.9% 100 ml @ 25 mls/hr IVPB Q8HR [facility] Rx# :[id number] Oral 180 Output: Urine 800 525 600 Other: Voiding Method External Catheter Bedside Commode Urinal # Voids 1 1 # Bowel Movements 1 - Labs CBC & Chem 7: 02/07/22 09:39 02/07/22 09:39 Labs: Abnormal Lab Results - Last 24 Hours (Table) 02/07/22 02/07/22 Range/Units 09:39 09:39 WBC 11.1 H (3.8-10.6) k/uL RBC 3.30 L (4.30-5.90) m/uL Hgb 10.6 L (13.0-17.5) gm/dL Hct 31.2 L (39.0-53.0) % Neutrophils # 8.7 H (1.3-7.7) k/uL Sodium 134 L (137-145) mmol/L Glucose 123 H (74-99) mg/dL Calcium 8.0 L (8.4-10.2) mg/dL Microbiology - Last 24 Hours (Table) 02/03/22 06:30 Blood Culture Gram Stain - Final Blood Blood Culture - Final Staphylococcus epidermidis Assessment and Plan Time with Patient: Less than 30
[2022-02-07] MEDS: LOPERAMIDE 2 MG CAP PO PRN (16:20)
[2022-02-07] MEDS: LATANOPROST 0.005% OPHTH DROPS 2.5 ML BTL LEFT EYE SCH (20:55)
[2022-02-07] MEDS: ATORVASTATIN 80 MG TAB PO SCH (20:55)
[2022-02-07] MEDS ORDERED: MELATONIN 5 MG TABLET PO SCH (21:00)
[2022-02-07] MEDS: oxyCODONE-APAP 5-325MG 1 EACH TAB PO PRN (21:03)
--- NOTE | 2022-02-07 22:29 | P.PN ---
Subjective Progress Note Date: 02/06/22 Principal diagnosis: Pneumonia Patient is a 67-year-old male with a past medical history pertinent for congestive heart failure COPD presenting to the ER for evaluation of chest pain and shortness of breath, also complaining of a cough patient did have elevated white count CT angiogram of the chest did shows right lower lobe opacity concerning for pneumonia. On today's evaluation that is 02/06/2022, the patient did have a low-grade fever 100.7 today, the patient is breathing comfortably on room air. The patient denies having chest pain , the patient continued to have a cough not able to bring up any sputum, the patient denies having any nausea no vomiting no ab dominal pain or diarrhea Objective - Vital Signs Vital signs: Vital Signs Temp 99.7 F H 02/06/22 11:59 Pulse 95 02/06/22 11:59 Resp 16 02/06/22 11:59 BP 105/66 02/06/22 11:59 Pulse Ox 98 02/06/22 11:59 FiO2 Intake & Output 02/05/22 02/06/22 02/06/22 18:59 06:59 18:59 Intake Total 480 Output Total 800 800 Balance 480 -800 -800 Intake: Oral 480 Output: Urine 800 800 Other: Voiding Method External Catheter External Catheter External Catheter # Bowel Movements 1 - Exam GENERAL DESCRIPTION: An elderly male lying in bed in no distress RESPIRATORY SYSTEM: Unlabored breathing , decreased breath sounds at bases HEART: S1 S2 regular rate and rhythm , ABDOMEN: Soft , no tenderness EXTREMITIES: No edema feet - Labs CBC & Chem 7: 02/07/22 09:39 02/07/22 09:39 Labs: Abnormal Lab Results - Last 24 Hours (Table) 02/06/22 02/06/22 02/06/22 Range/Units 07:13 07:13 11:41 WBC 11.3 H (3.8-10.6) k/uL RBC 3.33 L (4.30-5.90) m/uL Hgb 10.3 L (13.0-17.5) gm/dL Hct 31.7 L (39.0-53.0) % Neutrophils # 9.1 H (1.3-7.7) k/uL Sodium 134 L (137-145) mmol/L BUN 8 L (9-20) mg/dL Glucose 107 H (74-99) mg/dL POC Glucose (mg/dL) 132 H (70-110) mg/dL Calcium 7.4 L (8.4-10.2) mg/dL Microbiology - Last 24 Hours (Table) 02/03/22 06:30 Blood Culture Gram Stain - Preliminary Blood Blood Culture - Preliminary Coagulase Negative Staph Assessment and Plan (1) HCAP (healthcare-associated pneumonia) Current Visit: Yes Status: Acute Code(s): J18.9 - PNEUMONIA, UNSPECIFIED ORGANISM SNOMED Code(s): 411787954 Plan: 1patient presented to hospital with increasing shortness of breath chest pain in this patient did have evidence of right-sided pneumonia patient did have elevated white count has always elevated lactic acid meeting criteria for SIRS/sepsis in a [facility] resident will need to cover for the resistant gram-negative be the likely pathogen. 2blood cultures with staph epi likely skin contamination , sputum has been requested but not collected. Patient did have elevated pro-calcitonin 2.90 3patient seemed to have shown some clinical improvement and will continue with Zosyn 3.375 g every 8 hours however need to monitor his fever closely. Time with Patient: Less than 30
--- NOTE | 2022-02-07 22:31 | P.PN ---
Subjective Progress Note Date: 02/07/22 Principal diagnosis: Pneumonia Patient is a 67-year-old male with a past medical history pertinent for congestive heart failure COPD presenting to the ER for evaluation of chest pain and shortness of breath, also complaining of a cough patient did have elevated white count CT angiogram of the chest did shows right lower lobe opacity concerning for pneumonia. On today's evaluation that is 02/07/2022, the patient did have a fever yesterday however is today so for, the patient is breathing comfortably on room air. The patient denies having chest pain , the patient denies any worsening cough and no sputum production, the patient denies nausea no vomiting no choking on the food no abdominal pain or diarrhea Objective - Vital Signs Vital signs: Vital Signs Temp 99.6 F 02/07/22 12:00 Pulse 103 H 02/07/22 12:00 Resp 16 02/07/22 12:00 BP 115/67 02/07/22 12:00 Pulse Ox 99 02/07/22 12:00 FiO2 Intake & Output 02/06/22 02/07/22 02/07/22 18:59 06:59 18:59 Intake Total 180 100 Output Total 800 525 600 Balance -800 -345 -500 Intake: Intake, IV Titration 100 Amount Piperacillin-Tazobactam 3 100 .375 gm In Sodium Chloride 0.9% 100 ml @ 25 mls/hr IVPB Q8HR [facility] Rx# :[id number] Oral 180 Output: Urine 800 525 600 Other: Voiding Method External Catheter Bedside Commode Urinal # Voids 1 1 # Bowel Movements 1 - Exam GENERAL DESCRIPTION: An elderly male lying in bed in no distress RESPIRATORY SYSTEM: Unlabored breathing , decreased breath sounds at bases HEART: S1 S2 regular rate and rhythm , ABDOMEN: Soft , no tenderness EXTREMITIES: No edema feet - Labs CBC & Chem 7: 02/07/22 09:39 02/07/22 09:39 Labs: Abnormal Lab Results - Last 24 Hours (Table) 02/07/22 02/07/22 Range/Units 09:39 09:39 WBC 11.1 H (3.8-10.6) k/uL RBC 3.30 L (4.30-5.90) m/uL Hgb 10.6 L (13.0-17.5) gm/dL Hct 31.2 L (39.0-53.0) % Neutrophils # 8.7 H (1.3-7.7) k/uL Sodium 134 L (137-145) mmol/L Glucose 123 H (74-99) mg/dL Calcium 8.0 L (8.4-10.2) mg/dL Microbiology - Last 24 Hours (Table) 02/03/22 06:30 Blood Culture Gram Stain - Final Blood Blood Culture - Final Staphylococcus epidermidis Assessment and Plan (1) HCAP (healthcare-associated pneumonia) Current Visit: Yes Status: Acute Code(s): J18.9 - PNEUMONIA, UNSPECIFIED ORGANISM SNOMED Code(s): 576918253 Plan: 1patient presented to hospital with increasing shortness of breath chest pain in this patient did have evidence of right-sided pneumonia patient did have elevated white count has always elevated lactic acid meeting criteria for SIRS/sepsis in a [facility] resident will need to cover for the resistant gram-negative be the likely pathogen. 2blood cultures with staph epi likely skin contamination , sputum has been requested but not collected. Patient did have elevated pro-calcitonin 2.90 3patient did have a low-grade fever repeat x-ray continued right lower lobe pneumonia. The patient will benefit from swallow evaluation and aspiration precaution try to obtain sputum and continue with the Zosyn Time with Patient: Less than 30
[2022-02-08] MEDS: oxyCODONE-APAP 5-325MG 1 EACH TAB PO PRN (03:15)
[2022-02-08] MEDS: PANTOPRAZOLE 40 MG TABLET PO SCH (06:19)
[2022-02-08 07:55] LABS: Basophils # (A) 0.1 k/uL (0-0.2); Basophils % (A) 1 %; Eosinophils # (A) 0.6 k/uL (0-0.7); Eosinophils % (A) 6 %; HCT 33.3 % (39.0-53.0); HGB 10.9 gm/dL (13.0-17.5); Lymphocytes # (A) 1.5 k/uL (1.0-4.8); Lymphocytes % (A) 15 %; MCH 31.2 pg (25.0-35.0); MCHC 32.7 g/dL (31.0-37.0); MCV 95.3 fL (80.0-100.0); Mean Platelet Volume 8.3; Monocytes # (A) 0.6 k/uL (0-1.0); Monocytes % (A) 6 %; Neutrophils % (A) 69 %; Platelet Count 347 k/uL (150-450); RBC 3.49 m/uL (4.30-5.90); RDW 13.1 % (11.5-15.5); WBC 10.1 k/uL (3.8-10.6)
[2022-02-08 08:14] VITALS: RESP 18
[2022-02-08 08:57] LABS: African American GFR (CKD) >90 (>60 ml/min/1.73 sqM); Anion Gap 5 mmol/L; Blood Urea Nitrogen 12 mg/dL (9-20); Calcium 8.3 mg/dL (8.4-10.2); Carbon Dioxide 29 mmol/L (22-30); Chloride 102 mmol/L (98-107); Glucose 101 mg/dL (74-99); Non-African American GFR(CKD) 85 (>60 ml/min/1.73 sqM); Potassium 3.8 mmol/L (3.5-5.1); Sodium 136 mmol/L (137-145)
[2022-02-08] MEDS ORDERED: METOPROLOL TARTRATE 25 MG TAB PO SCH (09:45)
[2022-02-08 09:50] VITALS: BMI 28.5
[2022-02-08] MEDS: PIPERACILLIN-TAZOBACTAM 3.375 GM in SODIUM CHLORIDE 0.9% 100 ML IVPB SCH ×2 (10:14→15:49)
[2022-02-08] MEDS: FUROSEMIDE 20 MG TAB PO SCH (10:14)
[2022-02-08] MEDS: DAPAGLIFLOZIN PROPANEDIOL 10 MG TABLET PO SCH (10:15)
[2022-02-08] MEDS: BACLOFEN 10 MG TAB PO SCH (10:15)
[2022-02-08] MEDS: POTASSIUM CHLORIDE ER 20 MEQ TAB.ER PO SCH (10:15)
[2022-02-08] MEDS: APIXABAN 5 MG TAB PO SCH (10:15)
[2022-02-08 11:14] LABS: C Reactive Protein 14.1 mg/dL (<1.0)
[2022-02-08] MEDS: METOPROLOL SUCCINATE (ER) 50 MG TAB.ER.24H PO SCH (11:57)
--- NOTE | 2022-02-08 13:48 | P.DS ---
Providers Date of admission: 02/03/22 06:39 Attending physician: Luan Page MD Consults: 02/03/22 07:49 Consult Physician Stat Consulting Provider: Zhen Holly Consult Reason/Comments: chest pain Do you want consulting provider notified?: Yes 02/03/22 07:50 Consult Physician Stat Consulting Provider: Olga Cueva Consult Reason/Comments: pneumonia Do you want consulting provider notified?: Yes Primary care physician: Ankit May Hospital Course: Final Diagnosis Right lower lobe pneumonia with sepsis present on admission with worsening right infiltrate felt to be possible atelectasis and patient improved on antibiotics Acute on chronic CHF with preserved ejection fraction diuresed well with IV Lasix and has been transitioned back to oral Lasix History of hypertension currently normotensive blood pressure Hyperlipidemia History of paroxysmal atrial fibrillation with questionable rapid ventricular rate versus tachycardia on admission continue the metoprolol and is anticoagulated with eliquis Coronary artery disease with known intermediate disease involving ostial left main in the range of 30-40% found on cardiac catheterization in July 2021 History COPD not in acute exacerbation GI prophylaxis DVT prophylaxis Full Code Discharge Disposition Patient is stable for discharge back to ECF. He is currently on room air and improving with antibiotics. He has been transitioned back to oral lasix and cleared by cardiology for discharge. Recommend to follow up with cardiology on DC in 1 to 2 weeks. Repeat BMP in 2 to 3 days. Infectious disease has recommended patient to be discharged on oral avelox 400 mg daily for 7 days. Hospital Course This is a 67-year-old male with past medical history significant for congestive heart failure, COPD, hyperlipidemia, hypertension, paroxysmal atrial fibrillation. Patient presents to the hospital with concern for shortness of breath as well as chest pain and cough. Labs on admission are showing a white count of 22.5, hemoglobin 12.3, lactic acid 3.2. Patient was started on empiric antibiotic coverage with IV rocephin and infectious disease was consulted. Chest CT showing evidence for right lower lobe pneumonia and progressive terminal found to be 2.90. Patient met sepsis protocol. Transitioned to IV Zosyn, lactic acid normalized and white count is down to 11.3. He was also found to be in a mild acute CHF and was treated with IV Lasix, he diuresed well. Recently had a echo stress test back in May 2021 which showed a preserved ejection fraction. Cardiology evaluated patient this admission as well and transitioned back to oral Lasix 60 mg by mouth daily and is recommended to follow-up on discharge. Patient had spiked a temp and had cough for which repeat chest xray was taken showing persistent right infiltrate with atelectasis. He was given incentive spirometer and monitored. Fever had improved and also lung sounds improved. Continues on room air. Procalcitonin found to be 0.27. CRP 14.1. Sodium improved to 136. White count improved to 10.1. hemoglobin stable at 10.9. Overall patient has clinically improved and anticipating discharge back to ECF today. 02/08/2022 Patient is evaluated since the chair. Denies any chest pain, denies shortness of breath. His lungs are clear to auscultation today. He will like to be discharged back to the ECF. No acute complaints overnight. Cardiology has cleared for discharge disposition back to oral Lasix. Patient instructed to continue incentive spirometer for discharge. Temperature has improved. Blood pressures while 109/55, heart rate 90s normal sinus rhythm, 98% on room air. Lower extremity edema has improved. Alert x 3 focal neurological exam is negative. Has some generalized weakness. Will be discharged with the above mentioned recommendations. Total time taken in discharge planning greater than 35 minutes. Please see medication reconciliation for list of current medication. Thank you for allowing us participate in the care of this patient. The impression and plan of care has been dictated by Kathryn Magallon, Nurse Practitioner as directed. Dr. Mariah MD I have performed a history and physical examination and medical decision making of this patient, discussed the same with the dictator, and agree with the dictators assessment and plan as written, documented as a scribe. Based on total visit time, I have performed more than 50% of this visit. Patient Condition at Discharge: Stable Plan - Discharge Summary Discharge Rx Participant: Yes New Discharge Prescriptions: New Menthol-Zinc Oxide Oint [Calmoseptine Ointment] 1 applic TOPICAL TID PRN each PRN Reason: Skin Irritation Furosemide [Lasix] 60 mg PO DAILY tab Pantoprazole [Protonix] 40 mg PO AC-BRKFST tab Moxifloxacin HCl [Avelox] 400 mg PO DAILY #7 tab Continue Latanoprost [Xalatan 0.005%] 1 drop LEFT EYE HS Albuterol Nebulized [Ventolin Nebulized] 2.5 mg INHALATION RT-Q6H PRN PRN Reason: Shortness Of Breath Albuterol Sulfate [Proventil Hfa] 2 puff INHALATION RT-Q6H PRN PRN Reason: Shortness Of Breath bisacodyL [Dulcolax] 5 mg PO DAILY PRN tab PRN Reason: Constipation Mag Hydrox/Al Hydrox/Simeth [Maalox] 30 ml PO Q4HR PRN ml PRN Reason: Gi Upset Diclofenac Sodium Gel [Voltaren Gel] 4 gm TOPICAL Q8HR@0500,1300,2100 PRN PRN Reason: Pain Saccharomyces Boulardii [Saccharomycin Df] 250 mg PO BID oxyCODONE-APAP 5-325MG [Percocet 5-325 mg] 1 tab PO Q4H PRN #4 tab PRN Reason: Pain traMADol HCl [Ultram] 50 mg PO Q8HR PRN #3 tab PRN Reason: Pain Apixaban [Eliquis] 5 mg PO BID tab Metoprolol Succinate (ER) [Toprol XL] 50 mg PO DAILY Acetaminophen Tab [Tylenol] 650 mg PO Q6HR PRN tab PRN Reason: Mild Pain Or Fever > 100.5 Baclofen 10 mg PO BID Ipratropium-Albuterol Nebulize [Duoneb 0.5 mg-3 mg/3 ml Soln] 3 ml INHALATION Q6HR PRN PRN Reason: sob Potassium Chloride [Klor-Con M20] 40 meq PO BID Atorvastatin [Lipitor] 80 mg PO HS Empagliflozin [Jardiance] 10 mg PO DAILY Multivitamins, Thera [Multivitamin (formulary)] 1 tab PO BID Loperamide HCl [Loperamide] 2 mg PO DAILY PRN PRN Reason: Diarrhea Discontinued oxyCODONE-APAP 5-325MG [Percocet 5-325 mg] 1 tab PO Q8HR@0500,1300,2100 Spironolactone [Aldactone] 25 mg PO DAILY Furosemide [Lasix] 60 mg PO DAILY Furosemide 60 mg IM ONCE Discharge Medication List Latanoprost [Xalatan 0.005%] 1 drop LEFT EYE HS 10/31/17 [History] Albuterol Nebulized [Ventolin Nebulized] 2.5 mg INHALATION RT-Q6H PRN 08/13/20 [History] Albuterol Sulfate [Proventil Hfa] 2 puff INHALATION RT-Q6H PRN 03/06/21 [History] Acetaminophen Tab [Tylenol] 650 mg PO Q6HR PRN tab 06/14/21 [Rx] Apixaban [Eliquis] 5 mg PO BID tab 06/14/21 [Rx] Mag Hydrox/Al Hydrox/Simeth [Maalox] 30 ml PO Q4HR PRN ml 06/14/21 [Rx] Metoprolol Succinate (ER) [Toprol XL] 50 mg PO DAILY 06/14/21 [Rx] bisacodyL [Dulcolax] 5 mg PO DAILY PRN tab 06/14/21 [Rx] Baclofen 10 mg PO BID 08/15/21 [History] Ipratropium-Albuterol Nebulize [Duoneb 0.5 mg-3 mg/3 ml Soln] 3 ml INHALATION Q6HR PRN 08/15/21 [History] Atorvastatin [Lipitor] 80 mg PO HS 10/19/21 [History] Diclofenac Sodium Gel [Voltaren Gel] 4 gm TOPICAL Q8HR@0500,1300,2100 PRN 10/19/21 [History] Potassium Chloride [Klor-Con M20] 40 meq PO BID 10/19/21 [History] Empagliflozin [Jardiance] 10 mg PO DAILY 11/22/21 [History] Loperamide HCl [Loperamide] 2 mg PO DAILY PRN 01/06/22 [History] Multivitamins, Thera [Multivitamin (formulary)] 1 tab PO BID 01/06/22 [History] Saccharomyces Boulardii [Saccharomycin Df] 250 mg PO BID 02/03/22 [History] Furosemide [Lasix] 60 mg PO DAILY tab 02/06/22 [Rx] Menthol-Zinc Oxide Oint [Calmoseptine Ointment] 1 applic TOPICAL TID PRN each 02/06/22 [Rx] Pantoprazole [Protonix] 40 mg PO AC-BRKFST tab 02/06/22 [Rx] oxyCODONE-APAP 5-325MG [Percocet 5-325 mg] 1 tab PO Q4H PRN #4 tab 02/06/22 [Rx] traMADol HCl [Ultram] 50 mg PO Q8HR PRN #3 tab 02/06/22 [Rx] Moxifloxacin HCl [Avelox] 400 mg PO DAILY #7 tab 02/08/22 [Rx] Follow up Appointment(s)/Referral(s): Zhen Holly MD [STAFF PHYSICIAN] - 1 Week Ankit May MD [Primary Care Provider] - 1-2 days Olga Cueva MD [STAFF PHYSICIAN] - 1 Week Ambulatory/Diagnostic Orders: Basic Metabolic Panel [LAB.AMB] Time Frame: 2 Days, Location: None Selected Complete Blood Count w/diff [LAB.AMB] Time Frame: 3 Days, Location: None Select ed Activity/Diet/Wound Care/Special Instructions: Continue lasix as prescribed and follow up with cardiology Continue incentive spirometer Continue Avelox 400 mg daily for 7 days Discharge Disposition: TRANSFER TO SNF/ECF
[2022-02-08 14:46] VITALS: BP 116/57; PULSE 86; TEMP 98.6
--- NOTE | 2022-02-13 23:31 | P.PN ---
Subjective Progress Note Date: 02/08/22 Principal diagnosis: Pneumonia Patient is a 67-year-old male with a past medical history pertinent for congestive heart failure COPD presenting to the ER for evaluation of chest pain and shortness of breath, also complaining of a cough patient did have elevated white count CT angiogram of the chest did shows right lower lobe opacity concerning for pneumonia. On today's evaluation that is 02/08/2022, the patient remains to be afebrile, the patient is breathing comfortably on room air. The patient denies having chest pain , the patient did have occasional dry cough, the patient denies nausea no vomiting no choking on the food no abdominal pain or diarrhea Objective - Vital Signs Vital signs: Vital Signs Temp 98.2 F 02/08/22 08:00 Pulse 104 H 02/08/22 08:00 Resp 18 02/08/22 08:00 BP 109/55 02/08/22 08:00 Pulse Ox 98 02/08/22 08:56 FiO2 Intake & Output 02/07/22 02/08/22 02/08/22 18:59 06:59 18:59 Intake Total 580 480 420 Output Total 900 575 600 Balance -320 -95 -180 Weight 92.986 kg Intake: Intake, IV Titration 100 Amount Piperacillin-Tazobactam 3 100 .375 gm In Sodium Chloride 0.9% 100 ml @ 25 mls/hr IVPB Q8HR [facility] Rx# :[id number] Oral 480 480 420 Output: Urine 900 575 600 Other: Voiding Method Bedside Commode Bedside Commode Urinal Urinal # Voids 1 1 # Bowel Movements 1 - Exam GENERAL DESCRIPTION: An elderly male lying in bed in no distress RESPIRATORY SYSTEM: Unlabored breathing , decreased breath sounds at bases HEART: S1 S2 regular rate and rhythm , ABDOMEN: Soft , no tenderness EXTREMITIES: No edema feet - Labs CBC & Chem 7: 02/08/22 07:36 02/08/22 07:36 Labs: Abnormal Lab Results - Last 24 Hours (Table) 02/08/22 02/08/22 02/08/22 Range/Units 07:36 07:36 07:36 RBC 3.49 L (4.30-5.90) m/uL Hgb 10.9 L (13.0-17.5) gm/dL Hct 33.3 L (39.0-53.0) % Sodium 136 L (137-145) mmol/L Glucose 101 H (74-99) mg/dL Calcium 8.3 L (8.4-10.2) mg/dL C-Reactive Protein 14.1 H (<1.0) mg/dL Procalcitonin 0.27 H (0.02-0.09) ng/mL Assessment and Plan (1) HCAP (healthcare-associated pneumonia) Status: Acute Code(s): J18.9 - PNEUMONIA, UNSPECIFIED ORGANISM SNOMED Code(s): 747570001 Plan: 1patient presented to hospital with increasing shortness of breath chest pain in this patient did have evidence of right-sided pneumonia patient did have elevated white count has always elevated lactic acid meeting criteria for SIRS/sepsis in a fdc resident will need to cover for the resistant gram-negative be the likely pathogen. 2blood cultures with staph epi likely skin contamination , sputum has been requested but not collected. Patient did have elevated pro-calcitonin 2.90 3patient seemed to have shown overall clinical improvement and has been afebrile for more than 48 hours he will finish therapy with oral Avelox and close outpatient follow-up discuss with the [employer] for admitting team Time with Patient: Less than 30
== END 2022-02-08 16:57 | DRG 871 ==
LOC: EC 02:30 → 3SCARD 06:39
PROVIDERS: ADMIT Internal Medicine; ATTEND Internal Medicine
DX: A41.9 Sepsis, unspecified organism (principal); I50.33 Acute on chronic diastolic (congestive) heart failure; J18.9 Pneumonia, unspecified organism; J98.11 Atelectasis; E87.20 Acidosis, unspecified; E78.5 Hyperlipidemia, unspecified; E87.6 Hypokalemia; F32.A Depression, unspecified; I11.0 Hypertensive heart disease with heart failure; I25.10 Atherosclerotic heart disease of native coronary artery without angina pectoris; I48.0 Paroxysmal atrial fibrillation; I50.82 Biventricular heart failure; J43.9 Emphysema, unspecified; M54.9 Dorsalgia, unspecified; G89.29 Other chronic pain; G43.909 Migraine, unspecified, not intractable, without status migrainosus; K21.9 Gastro-esophageal reflux disease without esophagitis; K22.70 Barrett's esophagus without dysplasia; M19.90 Unspecified osteoarthritis, unspecified site; I49.1 Atrial premature depolarization; V29.99XS Rider (driver) (passenger) of other motorcycle injured in unspecified traffic accident, sequela; Z20.822 Contact with and (suspected) exposure to COVID-19; H40.9 Unspecified glaucoma; Y95 Nosocomial condition; I08.1 Rheumatic disorders of both mitral and tricuspid valves; Z79.01 Long term (current) use of anticoagulants; Z79.84 Long term (current) use of oral hypoglycemic drugs; Z79.899 Other long term (current) drug therapy; Z87.891 Personal history of nicotine dependence; Z28.311 Partially vaccinated for COVID-19; Z71.3 Dietary counseling and surveillance; Z88.8 Allergy status to other drugs, medicaments and biological substances; Z87.01 Personal history of pneumonia (recurrent); Z88.6 Allergy status to analgesic agent; Z91.030 Bee allergy status; Z79.891 Long term (current) use of opiate analgesic
CPT/HCPCS: 36415; 71045; 71046; 71275; 80048; 80053; 83605; 83690; 83735; 83880; 84145; 84484; 85025; 85379; 85610; 85730; 86140; 87040; 87077; 87186; 87324; 87502; 87635; 93005; 94760

== ENCOUNTER 2023-03-05 01:07 | Inpatient (IN) | payer MEDICARE, OTHER ==
[2023-03-05] MEDS ORDERED: SODIUM CHLORIDE 0.9% 1,000 ML IV STA (01:19)
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
[2023-03-05 01:42] LABS: Basophils # (A) 0.1 k/uL (0-0.2); Basophils % (A) 0 %; Eosinophils # (A) 0.1 k/uL (0-0.7); Eosinophils % (A) 0 %; HCT 36.9 % (39.0-53.0); HGB 12.3 gm/dL (13.0-17.5); Lymphocytes # (A) 0.5 k/uL (1.0-4.8); Lymphocytes % (A) 2 %; MCHC 33.3 g/dL (31.0-37.0); MCV 93.1 fL (80.0-100.0); Mean Platelet Volume 7.7; Monocytes % (A) 3 %; Neutrophils # (A) 29.7 k/uL (1.3-7.7); Neutrophils % (A) 94 %; Platelet Count 389 k/uL (150-450); RBC 3.96 m/uL (4.30-5.90); RDW 14.1 % (11.5-15.5); WBC 31.7 k/uL (3.8-10.6)
[2023-03-05 02:09] LABS: INR 2.4 (<1.2); Partial Thromboplastin Time 43.4 sec (22.0-30.0)
[2023-03-05] MEDS ORDERED: HYDROmorphone 0.5 MG/0.5 ML SYRINGE IVP STA (02:12)
[2023-03-05 03:16] LABS: Appearance,Urine Clear (Clear); Bacteria,Urine Rare /hpf; Bilirubin,Urine Negative (Negative); Blood,Urine Negative (Negative); Cellular Casts,Urine 1 /lpf (0); Color,Urine Yellow; Glucose,Urine (UA) Trace (Negative); Hyaline Casts,Urine 3 /lpf (0-2); Ketones,Urine Negative (Negative); Leukocyte Esterase,Urine Negative (Negative); Mucus,Urine Rare /hpf; Nitrite,Urine Negative (Negative); PH, Urine 5.5 (5.0-8.0); Protein,Urine 1+ (Negative); RBC,Urine 1 /hpf (0-5); Specific Gravity,Urine 1.014 (1.001-1.035); Squamous Epithelial Cell,Urine <1 /hpf (0-4); Urobilinogen,Urine <2.0 mg/dL (<2.0); WBC,Urine 2 /hpf (0-5)
--- NOTE | 2023-03-05 04:11 | XR ---
EXAM: XR Chest, 1 View CLINICAL HISTORY: ITS.REASON XR Reason: sob TECHNIQUE: Frontal view of the chest. COMPARISON: 09/22/2042 FINDINGS: Lungs: Large left upper lobe opacity. Pleural space: No acute findings Heart: No cardiomegaly. Bones/joints: No acute findings. IMPRESSION: Large left upper lobe opacity. Correlate with infection or neoplastic process. Recommend chest CT.
[2023-03-05 04:31] LABS: ALT 22 U/L (4-49); AST 45 U/L (17-59); African American GFR (CKD) 23 (>60 ml/min/1.73 sqM); Albumin 2.4 g/dL (3.5-5.0); Alkaline Phosphatase 170 U/L (38-126); Anion Gap 15 mmol/L; Blood Urea Nitrogen 48 mg/dL (9-20); Calcium 7.4 mg/dL (8.4-10.2); Carbon Dioxide 19 mmol/L (22-30); Chloride 91 mmol/L (98-107); Glucose 85 mg/dL (74-99); Non-African American GFR(CKD) 20 (>60 ml/min/1.73 sqM); Phosphorus 5.4 mg/dL (2.5-4.5); Potassium 3.1 mmol/L (3.5-5.1); Sodium 125 mmol/L (137-145); Total Bilirubin 0.5 mg/dL (0.2-1.3); Total Protein 6.2 g/dL (6.3-8.2)
[2023-03-05 04:38] LABS: NT-Pro-B-Type Natriuretic Pept 4710 pg/mL
[2023-03-05] MEDS ORDERED: PNEUMONIA PROTOCOL UTILIZED 1 EACH MISC PO PRN (04:42)
[2023-03-05] MEDS ORDERED: NALOXONE 0.4 MG/ML 1 ML VIAL IV PRN (04:42)
[2023-03-05] MEDS ORDERED: PIPERACILLIN-TAZOBACTAM 3.375 GM in SODIUM CHLORIDE 0.9% 100 ML IVPB STA (04:52)
[2023-03-05] MEDS ORDERED: AZITHROMYCIN 500 MG in SODIUM CHLORIDE 0.9% 250 ML IVPB STA (04:52)
[2023-03-05] MEDS: IPRATROPIUM-ALBUTEROL 3 ML NEB INHALATION PRN ×2 (05:52→09:12)
[2023-03-05] MEDS: SODIUM CHLORIDE 0.9% 1,000 ML IV SCH ×3 (05:55→14:11)
[2023-03-05] MEDS: HYDROmorphone 0.5 MG/0.5 ML SYRINGE IVP PRN ×2 (07:55→18:53)
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
[2023-03-05] MEDS: APIXABAN 5 MG TAB PO SCH ×2 (11:03→20:08)
[2023-03-05 11:49] LABS: Glucose,Whole Blood 79 mg/dL (70-110)
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
[2023-03-05 13:22] LABS: ALT 22 U/L (4-49); AST 57 U/L (17-59); African American GFR (CKD) 25 (>60 ml/min/1.73 sqM); Albumin 2.3 g/dL (3.5-5.0); Alkaline Phosphatase 173 U/L (38-126); Anion Gap 20 mmol/L; Blood Urea Nitrogen 47 mg/dL (9-20); Calcium 7.3 mg/dL (8.4-10.2); Carbon Dioxide 16 mmol/L (22-30); Chloride 92 mmol/L (98-107); Glucose 79 mg/dL (74-99); Non-African American GFR(CKD) 21 (>60 ml/min/1.73 sqM); Sodium 128 mmol/L (137-145); Total Bilirubin 0.5 mg/dL (0.2-1.3); Total Protein 5.8 g/dL (6.3-8.2)
[2023-03-05 13:29] LABS: Potassium 2.1 mmol/L (3.5-5.1)
[2023-03-05] MEDS ORDERED: Potassium Replacement Protocol 1 EACH MISC MISCELLANE PRN (13:37)
[2023-03-05] MEDS: ONDANSETRON 4 MG/2 ML VIAL IVP PRN ×2 (13:40→21:16)
[2023-03-05] MEDS: PIPERACILLIN-TAZOBACTAM 3.375 GM in SODIUM CHLORIDE 0.9% 100 ML IVPB SCH ×2 (14:11→20:12)
[2023-03-05] MEDS: POTASSIUM CHLORIDE 10 MEQ in WATER FOR INJECTION 1 100ML.BAG IVPB SCH ×5 (14:11→22:09)
--- NOTE | 2023-03-05 16:44 | US ---
EXAMINATION TYPE: US kidneys/renal and bladder DATE OF EXAM: 03/05/2023 COMPARISON: None CLINICAL INDICATION: Male, 68 years old with history of myah; Jailkeeper notes: Poor historian, external bladder Seals EXAM MEASUREMENTS: Right Kidney: 11.5 x 5.7 x 4.9 cm Left Kidney: 11.0 x 5.3 x 5.4 cm Right Kidney: No hydronephrosis or masses seen, some cortical echogenicity could reflect underlying c hronic medical renal disease. Left Kidney: No hydronephrosis or masses seen, limited visualization due to bowel gas shadowing Bladder: distended, anechoic Bilateral Jets not seen IMPRESSION: No hydronephrosis on either side. There may be some underlying chronic medical renal disease.
[2023-03-05 18:09] LABS: ABG Base Excess -7.1 mmol/L; ABG HCO3 19 mmol/L (21-25); ABG Oxygen Saturation 89.4 % (94-97); ABG PCO2 39 mmHg (35-45); ABG PH 7.31 (7.35-7.45); ABG PO2 60 mmHg (83-108); ABG TCO2 20 mmol/L (19-24); Allen Test Performed? Yes
--- NOTE | 2023-03-05 18:28 | CT ---
EXAMINATION TYPE: CT chest wo con CT DLP: 329.8 mGycm, Automated exposure control for dose reduction was used. DATE OF EXAM: 03/05/2023 11:21 AM COMPARISON: Portable chest x-ray same day 3:00 AM . CLINICAL INDICATION:Male, 68 years old with history of left upper lobe neoplasm vs infection; PHH, le ft upper lobe neoplasm vs infection TECHNIQUE: Multiple axial images were obtained through the chest. Sagittal and coronal reformats were created for review. Contrast used: mL of (None if empty) Oral contrast used: (None if empty) FINDINGS: Examination limited by lack of IV contrast, and patient motion. Central airways appear grossly patent. The upper middle and lower lobe bronchi appear narrowed and at least partially occluded in some places, with areas of bronchial wall thickening also suggested. Lef t upper and lower lobe bronchi appear patent. Superior branches of the left upper lobe bronchus exten d into the area of masslike consolidated lung. Base of the neck is grossly unremarkable. Moderate to heavy calcification of the aorta, moderate coronary artery calcification. The ascending aorta is 4 cm the descending aorta is 3 cm. Pulmonary trunk appears mildly enlarged at 3.2 cm. Further evaluation of the vessels is limited without contrast. There are nonenlarged mediastinal nodes demonstrated without evidence of bulky lymphadenopathy. Porti ons of the esophagus appear somewhat patulous and gas-filled. The heart is mildly enlarged. There is no pericardial effusion. Lungs show mild/moderate emphysematous changes and what is likely apical reticulonodular scarring on the right. Atelectatic changes in the right lower lobe, with somewhat greater opacity posteriorly whi ch could reflect atelectasis and/or evolving infiltrate. Posterior to the right hilum in the superior segment of the right lower lobe there is a somewhat rounded focal opacity with ill-defined margins m easuring 2.2 x 2.2 cm with small internal lucencies which might represent aerated bronchi versus cheko y necrosis. On the left, there is a large left upper lobe consolidative opacity with surrounding grou ndglass attenuation which appears greatest towards the lung apex, measuring as large as 7.2 x 7.1 cm axially and contains a central irregular hypoattenuating core consistent with a cavity which may be r esult of necrosis. There is a thickened irregular rind of soft tissue. There are some linear bands of tissue seen crossing within this cavitary area. The consolidation extends from this inferiorly and a long the oblique fissure to the level of the hilum. Several foci of low attenuation within the areas of consolidation could represent residual aerated bronchi and/or areas of developing necrosis. Left l ower lobe is relatively clear. Trace pleural effusions could be present. No evidence of pneumothorax. Generalized osteopenia. Mild/moderate degenerative changes of the spine and shoulders. No clearly acu te bony abnormality. Limited cuts through the upper abdomen show no acute abnormality. Moderate calcification of the abdom inal aorta and branches. IMPRESSION: 1. Limited unenhanced study. 2. Central airways appear grossly patent. The upper middle and lower lobe bronchi appear narrowed an d at least partially occluded in some places, with areas of bronchial wall thickening also suggested. Findings suggest bronchitis and mucous plugging, with aspiration not excluded. 3. Mild/moderate pulmonary emphysematous changes. 4. Large left upper lobe consolidative opacity with central cavity/necrosis. Likely possibilities in clude septic pulmonary embolism, infection/abscess, and malignancy/metastasis. Less likely autoimmune /granulomatous disease. 5. Focal 2.2 cm opacity in the superior segment of the right lower lobe, with possible early necrosi s. This likely reflects the same process as #4. 6. Opacities likely reflect apical reticulonodular scarring on the right; follow-up to document stab ility or resolution. 7. Atelectatic changes in the right lower lobe, with somewhat greater opacity posteriorly which coul d reflect atelectasis and/or evolving infiltrate. 8. Mildly enlarged pulmonary trunk, suggesting pulmonary hypertension. 9. Moderate to heavy calcification of the aorta, moderate coronary artery calcifications. Mild cardi omegaly.
--- NOTE | 2023-03-05 19:03 | XR ---
EXAMINATION TYPE: XR chest 1V portable DATE OF EXAM: 03/05/2023 COMPARISON: 03/05/2023 INDICATION: Increasing O2 demands TECHNIQUE: Single frontal view of the chest is obtained. FINDINGS: The heart size is normal. The pulmonary vasculature is normal. Cavitary lesion is at the left apex. There is thickening of the right apex. Some developing atelectas is at the right lung base is present. IMPRESSION: 1. Biapical areas of increased density. Cavitary lesion versus summation densities at the left apex. 2. Developing right basilar atelectasis.
[2023-03-05] MEDS ORDERED: DEXTROSE 50% SYRINGE 50 ML IVP PRN ×2 (19:49)
[2023-03-05] MEDS: ATORVASTATIN 80 MG TAB PO SCH ×2 (20:08→20:11)
[2023-03-05 20:33] LABS: Glucose,Whole Blood 88 mg/dL (70-110)
[2023-03-05] MEDS: LATANOPROST 0.005% OPHTH DROPS 2.5 ML BTL LEFT EYE SCH (22:06)
[2023-03-05] MEDS ORDERED: SODIUM CHLORIDE 0.9% 1,000 ML IV ONE (22:48)
[2023-03-06 00:07] LABS: Glucose,Whole Blood 83 mg/dL (70-110)
[2023-03-06] MEDS: POTASSIUM CHLORIDE 10 MEQ in WATER FOR INJECTION 1 100ML.BAG IVPB SCH ×8 (00:10→22:40)
[2023-03-06] MEDS: HYDROmorphone 0.5 MG/0.5 ML SYRINGE IVP PRN ×3 (01:14→22:40)
[2023-03-06 05:14] LABS: ALT 25 U/L (4-49); AST 74 U/L (17-59); African American GFR (CKD) 29 (>60 ml/min/1.73 sqM); Albumin 2.2 g/dL (3.5-5.0); Alkaline Phosphatase 137 U/L (38-126); Anion Gap 14 mmol/L; Blood Urea Nitrogen 46 mg/dL (9-20); Calcium 7.5 mg/dL (8.4-10.2); Carbon Dioxide 17 mmol/L (22-30); Chloride 98 mmol/L (98-107); Glucose 80 mg/dL (74-99); Non-African American GFR(CKD) 25 (>60 ml/min/1.73 sqM); Phosphorus 6.4 mg/dL (2.5-4.5); Potassium 3.3 mmol/L (3.5-5.1); Sodium 129 mmol/L (137-145); Total Bilirubin 0.5 mg/dL (0.2-1.3); Total Protein 5.8 g/dL (6.3-8.2)
[2023-03-06] MEDS: ONDANSETRON 4 MG/2 ML VIAL IVP PRN ×2 (05:21→15:54)
[2023-03-06] MEDS: PIPERACILLIN-TAZOBACTAM 3.375 GM in SODIUM CHLORIDE 0.9% 100 ML IVPB SCH ×3 (05:31→20:52)
[2023-03-06] MEDS: SODIUM CHLORIDE 0.9% 1,000 ML IV SCH (05:33)
[2023-03-06] MEDS ORDERED: Potassium Replacement Protocol 1 EACH MISC MISCELLANE PRN (05:43)
[2023-03-06 06:01] LABS: Basophils # (A) 0.1 k/uL (0-0.2); Basophils % (A) 0 %; Eosinophils # (A) 0.1 k/uL (0-0.7); Eosinophils % (A) 0 %; HCT 36.2 % (39.0-53.0); Hypochromasia Slight; Lymphocytes # (A) 0.5 k/uL (1.0-4.8); Lymphocytes % (A) 1 %; MCH 31.8 pg (25.0-35.0); MCHC 33.2 g/dL (31.0-37.0); MCV 95.7 fL (80.0-100.0); Mean Platelet Volume 8.7; Monocytes % (A) 6 %; Neutrophils % (A) 91 %; Platelet Count 339 k/uL (150-450); RBC 3.79 m/uL (4.30-5.90); RDW 14.3 % (11.5-15.5); WBC 33.8 k/uL (3.8-10.6)
[2023-03-06 06:09] LABS: Glucose,Whole Blood 86 mg/dL (70-110)
[2023-03-06 06:15] LABS: Neutrophils # (A) 30.7 k/uL (1.3-7.7)
--- NOTE | 2023-03-06 07:41 | P.PN ---
Subjective Progress Note Date: 03/06/23 Principal diagnosis: Paroxysmal atrial fibrillation The patient is a 68-year-old gentleman with a past medical history significant for heart failure and paroxysmal in nature patient as well as multiple comorbid conditions who was admitted to the hospital with sepsis related to pneumonia and also diarrhea. He was also diagnosed with electrolytes imbalance with hypokalemia likely secondary to diarrhea. Beside that he was hypotensive also likely secondary to diarrhea and sepsis. Beside that he was in renal failure 03/06/2022 The patient was seen and evaluated today. He seems to be stable was marginally low blood pressure but currently not on any vasopressors. His heart rate has a slightly improved because he was tachycardic yesterday. Currently he is on IV fluid. Urine output is marginal. Creatinine continues to be elevated. The creatinine remains elevated at this point and above the baseline. He is maintaining normal sinus mechanism. He has a swallowing evaluation and for that reason we are holding oral anticoagulation and if that the scenario he might benefit from IV anticoagulation using heparin IV and he cannot receive Lovenox because he is in renal failure. The examination is remarkable for bilateral rhonchi with irregular rhythm and distant heart sounds and bilateral lower extremity edema Assessment Pneumonia/sepsis Diarrhea Electrolytes imbalance Marginally low blood pressure Paroxysmal atrial fibrillation Swallowing evaluation Heart failure. The patient currently not in any heart failure Plan Decrease the dose of IV fluid If oral anticoagulation is going to be on hold with start the patient on heparin IV Continue monitor the kidney function and electrolytes Follow-up with the patient Objective - Vital Signs Vital signs: Vital Signs Temp 98.3 F 03/06/23 04:00 Pulse 128 H 03/06/23 07:00 Resp 17 03/06/23 07:00 BP 101/56 03/06/23 07:00 Pulse Ox 95 03/06/23 07:00 FiO2 Intake & Output 03/05/23 03/06/23 03/06/23 18:59 06:59 18:59 Intake Total 430 2800 130 Output Total 400 420 0 Balance 30 2380 130 Weight 73.028 kg 79.3 kg Intake: IV 430 2800 130 Piperacillin-Tazobactam 3 100 100 .375 gm In Sodium Chloride 0.9% 100 ml @ 25 mls/hr IVPB Q8H [facility] Rx#: [id number] Potassium Chloride 10 meq 200 400 In Water For Injection 1 100ml.bag @ 100 mls/hr IVPB Q1HR [facility] Rx#: [id number] Sodium Chloride 0.9% 1, 130 1300 130 000 ml @ 130 mls/hr IV . Q7H42M [facility] Rx#:[id number] Sodium Chloride 0.9% 1, 1000 000 ml @ 999 mls/hr IV . Q1H1M [facility] Rx#:[id number] Output: Urine 400 420 0 Other: Voiding Method External Catheter External Catheter # Voids 1 1 # Bowel Movements 1 - Labs CBC & Chem 7: 03/06/23 04:28 03/06/23 04:28 Labs: Abnormal Lab Results - Last 24 Hours (Table) 03/05/23 03/05/23 03/05/23 Range/Units 07:26 12:03 12:03 WBC (3.8-10.6) k/uL RBC (4.30-5.90) m/uL Hgb (13.0-17.5) gm/dL Hct (39.0-53.0) % Neutrophils # (1.3-7.7) k/uL Lymphocytes # (1.0-4.8) k/uL Monocytes # (0-1.0) k/uL ABG pH (7.35-7.45) ABG pO2 (83-108) mmHg ABG HCO3 (21-25) mmol/L ABG O2 Saturation (94-97) % Sodium 128 L (137-145) mmol/L Potassium 2.1 L* (3.5-5.1) mmol/L Chloride 92 L (98-107) mmol/L Carbon Dioxide 16 L (22-30) mmol/L BUN 47 H (9-20) mg/dL Creatinine 2.86 H (0.66-1.25) mg/dL Calcium 7.3 L (8.4-10.2) mg/dL Phosphorus (2.5-4.5) mg/dL AST (17-59) U/L Alkaline Phosphatase 173 H (38-126) U/L Troponin I 0.044 H* (0.000-0.034) ng/mL Total Protein 5.8 L (6.3-8.2) g/dL Albumin 2.3 L (3.5-5.0) g/dL Procalcitonin 1.06 H (0.02-0.09) ng/mL 03/05/23 03/06/23 03/06/23 Range/Units 18:07 04:28 04:28 WBC 33.8 H (3.8-10.6) k/uL RBC 3.79 L (4.30-5.90) m/uL Hgb 12.0 L (13.0-17.5) gm/dL Hct 36.2 L (39.0-53.0) % Neutrophils # 30.7 H (1.3-7.7) k/uL Lymphocytes # 0.5 L (1.0-4.8) k/uL Monocytes # 2.0 H (0-1.0) k/uL ABG pH 7.31 L (7.35-7.45) ABG pO2 60 L (83-108) mmHg ABG HCO3 19 L (21-25) mmol/L ABG O2 Saturation 89.4 L (94-97) % Sodium 129 L (137-145) mmol/L Potassium 3.3 L (3.5-5.1) mmol/L Chloride (98-107) mmol/L Carbon Dioxide 17 L (22-30) mmol/L BUN 46 H (9-20) mg/dL Creatinine 2.50 H (0.66-1.25) mg/dL Calcium 7.5 L (8.4-10.2) mg/dL Phosphorus 6.4 H (2.5-4.5) mg/dL AST 74 H (17-59) U/L Alkaline Phosphatase 137 H (38-126) U/L Troponin I (0.000-0.034) ng/mL Total Protein 5.8 L (6.3-8.2) g/dL Albumin 2.2 L (3.5-5.0) g/dL Procalcitonin (0.02-0.09) ng/mL
[2023-03-06] MEDS: IPRATROPIUM-ALBUTEROL 3 ML NEB INHALATION PRN (08:29)
--- NOTE | 2023-03-06 08:44 | XR ---
EXAMINATION TYPE: XR chest 1V DATE OF EXAM: 03/06/2023 6:39 AM CLINICAL INDICATION:Male, 68 years old with history of pneumonia; PHH COMPARISON: 03/05/2023 and before TECHNIQUE: XR chest 1V Portable AP radiograph of the chest.. FINDINGS: Evaluation lung apices is limited by the patient's chin position down. Lines/Tubes/Devices: EKG leads overlie the chest. No indwelling lines are seen. Heart/mediastinum: Heart size upper normal. Stable mediastinum. Pulmonary vascularity: Not increased, Lungs/Pleura: Costophrenic angles are sharp. Worsening opacity over the right mid to lower lung zone suggesting airspace disease. Similar appearance of left upper lobe infiltrate with consolidative opac ity at the left lung apex with central cavitation, however partially obscured. No visible pneumothora x. Musculoskeletal: No acute osseous abnormality demonstrated in the limits of the exam. Degenerative c hange of the spine and shoulders. Surgical anchor left humeral head. Other findings: None. IMPRESSION: * Slight interval worsening opacity over the right mid to lower lung zone suggesting airspace diseas e, likely pneumonia. * Similar appearance of left upper lobe infiltrate with consolidative opacity at the left lung apex with central cavitation.
[2023-03-06] MEDS ORDERED: AZITHROMYCIN 500 MG in SODIUM CHLORIDE 0.9% 250 ML IVPB SCH (09:00)
[2023-03-06] MEDS: MULTIVITAMINS, THERA 1 EACH TAB PO SCH (09:44)
--- NOTE | 2023-03-06 10:39 | P.PN ---
Subjective Progress Note Date: 03/06/23 68-year-old gentleman seen in the emergency department, room 27. He's not a particularly good historian, so much of the history is obtained from the primary service, and the ER afshan. The patient was in the emergency department, at 1:00 in the morning, on March 05. He came with complaints of altered mental status, diarrhea, and hypotension. He was apparently sent in from one of the local nursing homes. I could not get much history from the patient after this. But at the snf, he apparently was having a low blood pressure, and low oxygen saturation levels. He was also profoundly weak. He was confused. His condition apparently was getting worse ear, so he was sent into be evaluated. His chest x-ray apparently shows a infiltrate, or mass, in the left upper lobe. A CAT scan was recommended by radiology. The patient is on 5 L of oxygen. His saturations were anywhere from 91-96%. He was getting saline at 130 mL an hour. He was getting both Zosyn and azithromycin. His lower extremities were wrapped in OLAMIDE bandages. His blood pressure when I went to see him was 92/62. Lab oratory includes a white count of 31.7, hemoglobin 12.3, hematocrit 36.9, and a platelet count 389,000. PTT was 24, INR 2.4, and PTT was 43.4. Sodium 125, potassium 3.1, chlorides 91, CO2 19, anion gap 15, urine 48, creatinine 2.99. This electrolyte profile was consistent with an anion gap metabolic acidosis, probably from renal failure. The patient's N-terminal proBNP was 4710. Troponin was 0.044. The albumin was 2.4. Urine was negative. EKG showed sinus tachycardia with a rate of 105 bpm. Chest x-ray showed large left upper lobe opacity, consistent with either neoplasm or infiltrate/pneumonia. The computed tomography scan showed some scarring in the right upper lobe, but on the left side, a large cavitary lesion which could reflect cavitating pneumonia or cancer. His history is apparently positive for COPD, secondary to tobacco use, atrial fibrillation, congestive heart failure, gastroesophageal reflux disease, hyperlipidemia, hypertension, osteoarthritis, and Herring's esophagus. The patient is seen today 03/06/2023 and follow-up in the intensive care unit. He is currently sitting up in bed. Awake and alert. Requiring 7 L high flow nasal cannula to maintain O2 saturations in the mid 90s. He's been afebrile. Hemodynamically stable. He has normal saline at 100 ML's per hour. Propofol calcitonin level was 1.06. He remains on Zosyn. He is currently nothing by mouth. His swallow evaluation is pending. He is on a heparin drip in place of his Eliquis. CAT scan did reveal a left upper lobe cavitary lesion. X-ray continues to show opacity over the right mid to lower lung suggestive of airspace disease. Similar left upper lobe infiltrate with a consolidative opacity near the left apex with central cavitation. White count 33.8. Hemoglobin 12.0. Sodium 129. Potassium 3.3. Bicarb 17. BUN 46. Creatinine 2.50. Objective - Vital Signs Vital signs: Vital Signs Temp 98.3 F 03/06/23 04:00 Pulse 108 H 03/06/23 08:38 Resp 17 03/06/23 07:00 BP 101/56 03/06/23 07:00 Pulse Ox 97 03/06/23 08:29 FiO2 Intake & Output 03/05/23 03/06/23 03/06/23 18:59 06:59 18:59 Intake Total 430 2800 130 Output Total 400 420 0 Balance 30 2380 130 Weight 73.028 kg 79.3 kg Intake: IV 430 2800 130 Piperacillin-Tazobactam 3 100 100 .375 gm In Sodium Chloride 0.9% 100 ml @ 25 mls/hr IVPB Q8H [facility] Rx#: [id number] Potassium Chloride 10 meq 200 400 In Water For Injection 1 100ml.bag @ 100 mls/hr IVPB Q1HR [facility] Rx#: [id number] Sodium Chloride 0.9% 1, 130 1300 130 000 ml @ 130 mls/hr IV . Q7H42M [facility] Rx#:[id number] Sodium Chloride 0.9% 1, 1000 000 ml @ 999 mls/hr IV . Q1H1M [facility] Rx#:[id number] Output: Urine 400 420 0 Other: Voiding Method External Catheter External Catheter # Voids 1 1 # Bowel Movements 1 - Exam GENERAL EXAM: Alert, frail 68-year-old male patient on 7 L high flow nasal cannula, fairly comfortable in no apparent distress. HEAD: Normocephalic. EYES: Normal reaction of pupils, equal size. NOSE: Clear with pink turbinates. THROAT: No erythema or exudates. NECK: No masses, no JVD. CHEST: No chest wall deformity. LUNGS: Equal air entry with no crackles, wheeze, rhonchi or dullness. CVS: S1 and S2 normal with no audible murmur, regular rhythm. ABDOMEN: No hepatosplenomegaly, normal bowel sounds, no guarding or rigidity. SPINE: Severe kyphoscoliosis SKIN: No rashes CENTRAL NERVOUS SYSTEM: No focal deficits, tone is normal in all 4 extremities. EXTREMITIES: Changes of chronic venous stasis. Abnormal mobility. No clubbing, no cyanosis. Peripheral pulses are intact. - Labs CBC & Chem 7: 03/06/23 04:28 03/06/23 04:28 Labs: Abnormal Lab Results - Last 24 Hours (Table) 03/05/23 03/05/23 03/05/23 Range/Units 12:03 12:03 18:07 WBC (3.8-10.6) k/uL RBC (4.30-5.90) m/uL Hgb (13.0-17.5) gm/dL Hct (39.0-53.0) % Neutrophils # (1.3-7.7) k/uL Lymphocytes # (1.0-4.8) k/uL Monocytes # (0-1.0) k/uL ABG pH 7.31 L (7.35-7.45) ABG pO2 60 L (83-108) mmHg ABG HCO3 19 L (21-25) mmol/L ABG O2 Saturation 89.4 L (94-97) % Sodium 128 L (137-145) mmol/L Potassium 2.1 L* (3.5-5.1) mmol/L Chloride 92 L (98-107) mmol/L Carbon Dioxide 16 L (22-30) mmol/L BUN 47 H (9-20) mg/dL Creatinine 2.86 H (0.66-1.25) mg/dL Calcium 7.3 L (8.4-10.2) mg/dL Phosphorus (2.5-4.5) mg/dL AST (17-59) U/L Alkaline Phosphatase 173 H (38-126) U/L Total Protein 5.8 L (6.3-8.2) g/dL Albumin 2.3 L (3.5-5.0) g/dL Procalcitonin 1.06 H (0.02-0.09) ng/mL 03/06/23 03/06/23 Range/Units 04:28 04:28 WBC 33.8 H (3.8-10.6) k/uL RBC 3.79 L (4.30-5.90) m/uL Hgb 12.0 L (13.0-17.5) gm/dL Hct 36.2 L (39.0-53.0) % Neutrophils # 30.7 H (1.3-7.7) k/uL Lymphocytes # 0.5 L (1.0-4.8) k/uL Monocytes # 2.0 H (0-1.0) k/uL ABG pH (7.35-7.45) ABG pO2 (83-108) mmHg ABG HCO3 (21-25) mmol/L ABG O2 Saturation (94-97) % Sodium 129 L (137-145) mmol/L Potassium 3.3 L (3.5-5.1) mmol/L Chloride (98-107) mmol/L Carbon Dioxide 17 L (22-30) mmol/L BUN 46 H (9-20) mg/dL Creatinine 2.50 H (0.66-1.25) mg/dL Calcium 7.5 L (8.4-10.2) mg/dL Phosphorus 6.4 H (2.5-4.5) mg/dL AST 74 H (17-59) U/L Alkaline Phosphatase 137 H (38-126) U/L Total Protein 5.8 L (6.3-8.2) g/dL Albumin 2.2 L (3.5-5.0) g/dL Procalcitonin (0.02-0.09) ng/mL Assessment and Plan Assessment: Acute hypoxemic respiratory failure secondary to a cavitary pneumonia or cavitary neoplasm, left upper lobe Probable COPD from previous tobacco use Acute mental status changes, may reflect sepsis, or metabolic encephalopathy History of chronic atrial fibrillation History of congestive heart failure History of gastroesophageal reflux disease History of hypertension History of hyperlipidemia History of osteoarthritis History of Herring's esophagus Multiple other medical problems and comorbidities Plan: The patient was seen and evaluated Computed tomography scan of the chest, chest x-ray, labs and medications reviewed Continue Zosyn Heparin drip for anticoagulation while nothing by mouth Swallow evaluation Titrate the FiO2 as tolerated We will continue to follow I have personally seen and examined the patient, performed the documentation and the assessment and plan as written. Number of minutes spent on the visit: 10.
--- NOTE | 2023-03-06 11:07 | P.PN ---
Subjective Patient is seen for follow-up for acute kidney injury and hyponatremia. Currently maintained on IV fluids. Renal function is slightly improved. Serum creatinine at 2.5 from 2.9 on admission. About 300 mL of urine noted on bladder scan. Seals catheter will be placed. Objective - Vital Signs Vital signs: Vital Signs Temp 98.3 F 03/06/23 04:00 Pulse 108 H 03/06/23 08:38 Resp 17 03/06/23 07:00 BP 101/56 03/06/23 07:00 Pulse Ox 97 03/06/23 08:29 FiO2 Intake & Output 03/05/23 03/06/23 03/06/23 18:59 06:59 18:59 Intake Total 430 2800 130 Output Total 400 420 0 Balance 30 2380 130 Weight 73.028 kg 79.3 kg 79.3 kg Intake: IV 430 2800 130 Piperacillin-Tazobactam 3 100 100 .375 gm In Sodium Chloride 0.9% 100 ml @ 25 mls/hr IVPB Q8H [facility] Rx#: [id number] Potassium Chloride 10 meq 200 400 In Water For Injection 1 100ml.bag @ 100 mls/hr IVPB Q1HR [facility] Rx#: [id number] Sodium Chloride 0.9% 1, 130 1300 130 000 ml @ 130 mls/hr IV . Q7H42M [facility] Rx#:[id number] Sodium Chloride 0.9% 1, 1000 000 ml @ 999 mls/hr IV . Q1H1M [facility] Rx#:[id number] Output: Urine 400 420 0 Other: Voiding Method External Catheter External Catheter # Voids 1 1 # Bowel Movements 1 - Exam Patient is awake, no acute distress He does not communicate much. Examination of the heart S1 and S2 Examination of the lungs decreased breath sounds at the bases particularly left Examination of the abdomen reveals it to be soft nontender Examination lower extremity shows bilateral chronic skin changes no draining wounds noted. - Labs CBC & Chem 7: 03/06/23 04:28 03/06/23 04:28 Labs: Abnormal Lab Results - Last 24 Hours (Table) 03/05/23 03/05/23 03/05/23 Range/Units 12:03 12:03 18:07 WBC (3.8-10.6) k/uL RBC (4.30-5.90) m/uL Hgb (13.0-17.5) gm/dL Hct (39.0-53.0) % Neutrophils # (1.3-7.7) k/uL Lymphocytes # (1.0-4.8) k/uL Monocytes # (0-1.0) k/uL ABG pH 7.31 L (7.35-7.45) ABG pO2 60 L (83-108) mmHg ABG HCO3 19 L (21-25) mmol/L ABG O2 Saturation 89.4 L (94-97) % Sodium 128 L (137-145) mmol/L Potassium 2.1 L* (3.5-5.1) mmol/L Chloride 92 L (98-107) mmol/L Carbon Dioxide 16 L (22-30) mmol/L BUN 47 H (9-20) mg/dL Creatinine 2.86 H (0.66-1.25) mg/dL Calcium 7.3 L (8.4-10.2) mg/dL Phosphorus (2.5-4.5) mg/dL AST (17-59) U/L Alkaline Phosphatase 173 H (38-126) U/L Total Protein 5.8 L (6.3-8.2) g/dL Albumin 2.3 L (3.5-5.0) g/dL Procalcitonin 1.06 H (0.02-0.09) ng/mL 03/06/23 03/06/23 Range/Units 04:28 04:28 WBC 33.8 H (3.8-10.6) k/uL RBC 3.79 L (4.30-5.90) m/uL Hgb 12.0 L (13.0-17.5) gm/dL Hct 36.2 L (39.0-53.0) % Neutrophils # 30.7 H (1.3-7.7) k/uL Lymphocytes # 0.5 L (1.0-4.8) k/uL Monocytes # 2.0 H (0-1.0) k/uL ABG pH (7.35-7.45) ABG pO2 (83-108) mmHg ABG HCO3 (21-25) mmol/L ABG O2 Saturation (94-97) % Sodium 129 L (137-145) mmol/L Potassium 3.3 L (3.5-5.1) mmol/L Chloride (98-107) mmol/L Carbon Dioxide 17 L (22-30) mmol/L BUN 46 H (9-20) mg/dL Creatinine 2.50 H (0.66-1.25) mg/dL Calcium 7.5 L (8.4-10.2) mg/dL Phosphorus 6.4 H (2.5-4.5) mg/dL AST 74 H (17-59) U/L Alkaline Phosphatase 137 H (38-126) U/L Total Protein 5.8 L (6.3-8.2) g/dL Albumin 2.2 L (3.5-5.0) g/dL Procalcitonin (0.02-0.09) ng/mL Assessment and Plan Assessment: 1. Acute kidney injury, ATN associated with hypotension and underlying infection. Continue with IV fluids. UA shows 1+ protein and no blood or WBCs. No obstruction noted on ultrasound. Seals catheter will be placed as lettuce scan showed 300 mL of urine.. 2. Left lung pneumonia versus mass maintained on antibiotics 3. Mental status changes secondary to underlying infection 4. Chronic A. fib 5. Hypovolemic hyponatremia, improving with saline administration. 6. Hypokalemia associated with poor oral intake Plan: Switch IV fluids to sodium bicarb Replace potassium Repeat labs in a.m.
[2023-03-06 11:26] LABS: Appearance,Urine Cloudy (Clear); Bacteria,Urine Rare /hpf; Bilirubin,Urine Negative (Negative); Blood,Urine Moderate (Negative); Budding Yeast,Urine Moderate /hpf; Color,Urine Light Yellow; Glucose,Urine (UA) Trace (Negative); Granular Casts,Urine 10 /lpf (0); Hyaline Casts,Urine 32 /lpf (0-2); Ketones,Urine Negative (Negative); Leukocyte Esterase,Urine Negative (Negative); Mucus,Urine Rare /hpf; Nitrite,Urine Negative (Negative); Protein,Urine 1+ (Negative); RBC,Urine 1 /hpf (0-5); Specific Gravity,Urine 1.011 (1.001-1.035); Squamous Epithelial Cell,Urine 1 /hpf (0-4); Urobilinogen,Urine <2.0 mg/dL (<2.0); WBC,Urine 8 /hpf (0-5)
--- NOTE | 2023-03-06 11:31 | CA ---
Transthoracic Echo Report Name: Eric Curran Age: 68 Gender: M : 1955 Exam Date: 03/05/2023 16:18 Exam Location: [facility] Ht (in): 72 Wt (lb): 161 Ordering Physician: [place]psy [place] Attending/Referring Phys: [id number], Aleksandra Culvert Installer Laura Serna, SVETLANA Procedure CPT: Indications: LV function Cardiac Hx: Technical Quality: Technically difficult study Contrast 1: Definity Total Dose (mL): 3 Contrast 2: Total Dose (mL): MEASUREMENTS (Male / Female) Normal Values 2D ECHO LV Diastolic Diameter PLAX 4.1 cm 4.2 - 5.9 / 3.9 - 5.3 cm LV Systolic Diameter PLAX 3.2 cm IVS Diastolic Thickness 1.1 cm 0.6 - 1.0 / 0.6 - 0.9 cm LVPW Diastolic Thickness 1.1 cm 0.6 - 1.0 / 0.6 - 0.9 cm LV Relative Wall Thickness 0.5 M-MODE Aortic Root Diameter MM 2.4 cm DOPPLER TR Peak Velocity 292.6 cm/s TR Peak Gradient 34.2 mmHg Right Ventricular Systolic Press 38.6 mmHg FINDINGS Left Ventricle Left ventricular ejection fraction is estimated at 40-45 %. Left ventricular cavity size normal. Mildly increased septal wall thickness. Right Ventricle Right ventricle not well visualized. Mild pulmonary hypertension. Right Atrium Right atrium not well visualized. Left Atrium Left atrium not well visualized. Mitral Valve Structurally normal mitral valve. No mitral stenosis, regurgitation or prolapse. Aortic Valve Trileaflet aortic valve. Tricuspid Valve Structurally normal tricuspid valve. Mild tricuspid regurgitation. Pulmonic Valve Pulmonic valve not well visualized. Pericardium No pericardial effusion. Aorta Normal size aortic root and proximal ascending aorta. CONCLUSIONS Technically suboptimal study secondary to poor echo windows Mild LV systolic dysfunction Mild pulmonary hypertension Previewed by: Dr. Roberto Sanchez MD (Electronically Signed) Final Date: 06 March 2023 11:30
[2023-03-06 11:54] LABS: Glucose,Whole Blood 84 mg/dL (70-110)
[2023-03-06] MEDS ORDERED: AMIODARONE 360 MG in DEXTROSE 5% IN WATER 200 ML IV ONE ×2 (12:38)
[2023-03-06] MEDS ORDERED: DEXTROSE 5% IN WATER 100 ML with AMIODARONE 150 MG IV ONE (12:38)
[2023-03-06] MEDS: SODIUM CHLORIDE 0.45% 1,000 ML with SODIUM BICARB (1 MEQ/ML) 150 ML IV SCH ×2 (12:43)
[2023-03-06] MEDS: APIXABAN 5 MG TAB PO SCH ×2 (12:44→22:27)
[2023-03-06] MEDS: AMIODARONE 450 MG in DEXTROSE 5% IN WATER 250 ML IV SCH ×2 (18:44)
[2023-03-06 18:56] LABS: Glucose,Whole Blood 117 mg/dL (70-110)
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
[2023-03-06] MEDS ORDERED: DILTIAZEM DRIP BOLUS FROM BAG 1 MG SOLN IV ONE (20:49)
[2023-03-06] MEDS: DILTIAZEM 125 MG in SODIUM CHLORIDE 0.9% 100 ML IV SCH (21:46)
[2023-03-06] MEDS: ATORVASTATIN 80 MG TAB PO SCH (22:27)
[2023-03-06] MEDS: LATANOPROST 0.005% OPHTH DROPS 2.5 ML BTL LEFT EYE SCH (22:29)
[2023-03-07 01:06] LABS: Glucose,Whole Blood 122 mg/dL (70-110)
[2023-03-07] MEDS: POTASSIUM CHLORIDE 10 MEQ in WATER FOR INJECTION 1 100ML.BAG IVPB SCH ×3 (01:27→07:10)
[2023-03-07] MEDS: SODIUM CHLORIDE 0.45% 1,000 ML with SODIUM BICARB (1 MEQ/ML) 150 ML IV SCH ×4 (04:21→18:09)
[2023-03-07 04:58] LABS: ALT 23 U/L (4-49); AST 60 U/L (17-59); African American GFR (CKD) 26 (>60 ml/min/1.73 sqM); Alkaline Phosphatase 119 U/L (38-126); Anion Gap 13 mmol/L; Blood Urea Nitrogen 51 mg/dL (9-20); Calcium 7.6 mg/dL (8.4-10.2); Carbon Dioxide 18 mmol/L (22-30); Chloride 100 mmol/L (98-107); Glucose 97 mg/dL (74-99); Non-African American GFR(CKD) 22 (>60 ml/min/1.73 sqM); Potassium 3.8 mmol/L (3.5-5.1); Sodium 131 mmol/L (137-145); Total Bilirubin 0.5 mg/dL (0.2-1.3); Total Protein 5.3 g/dL (6.3-8.2)
[2023-03-07] MEDS ORDERED: Potassium Replacement Protocol 1 EACH MISC MISCELLANE PRN (05:03)
[2023-03-07 05:07] LABS: Basophils # (A) 0.1 k/uL (0-0.2); Basophils % (A) 0 %; Eosinophils # (A) 0.1 k/uL (0-0.7); Eosinophils % (A) 0 %; HGB 10.9 gm/dL (13.0-17.5); Lymphocytes # (A) 0.4 k/uL (1.0-4.8); Lymphocytes % (A) 2 %; MCH 31.7 pg (25.0-35.0); MCHC 34.1 g/dL (31.0-37.0); Mean Platelet Volume 8.1; Monocytes # (A) 1.4 k/uL (0-1.0); Monocytes % (A) 6 %; Neutrophils # (A) 21.1 k/uL (1.3-7.7); Neutrophils % (A) 90 %; Platelet Count 275 k/uL (150-450); RBC 3.45 m/uL (4.30-5.90); RDW 14.5 % (11.5-15.5); WBC 23.5 k/uL (3.8-10.6)
[2023-03-07] MEDS: HYDROmorphone 0.5 MG/0.5 ML SYRINGE IVP PRN ×3 (05:19→14:44)
[2023-03-07] MEDS: PIPERACILLIN-TAZOBACTAM 3.375 GM in SODIUM CHLORIDE 0.9% 100 ML IVPB SCH ×3 (05:21→20:30)
[2023-03-07] MEDS: ONDANSETRON 4 MG/2 ML VIAL IVP PRN ×2 (05:28→14:43)
[2023-03-07 05:37] LABS: Mycoplasma IgG Antibody (EIA) 3.02 INDEX (<=0.90); Mycoplasma IgM Antibody 0.14 INDEX (<=0.90)
--- NOTE | 2023-03-07 07:05 | P.PN ---
Subjective Progress Note Date: 03/07/23 Principal diagnosis: Paroxysmal atrial fibrillation The patient is a 68-year-old gentleman with a past medical history significant for heart failure and paroxysmal in nature patient as well as multiple comorbid conditions who was admitted to the hospital with sepsis related to pneumonia and also diarrhea. He was also diagnosed with electrolytes imbalance with hypokalemia likely secondary to diarrhea. Beside that he was hypotensive also likely secondary to diarrhea and sepsis. Beside that he was in renal failure 03/06/2022 The patient was seen and evaluated today. He seems to be stable was marginally low blood pressure but currently not on any vasopressors. His heart rate has a slightly improved because he was tachycardic yesterday. Currently he is on IV fluid. Urine output is marginal. Creatinine continues to be elevated. The creatinine remains elevated at this point and above the baseline. He is maintaining normal sinus mechanism. He has a swallowing evaluation and for that reason we are holding oral anticoagulation and if that the scenario he might benefit from IV anticoagulation using heparin IV and he cannot receive Lovenox because he is in renal failure. The examination is remarkable for bilateral rhonchi with irregular rhythm and distant heart sounds and bilateral lower extremity edema March [id number] The patient was seen and evaluated this morning. His diarrhea has improved significantly. He is back in sinus mechanism with heart rate in the 80s. His pressure is marginal including systolic pressure and mean pressure. For that reason I'm going to stop the Cardizem at this point and keep him on Darvon. He cannot swallow and for that reason we'll continue the amiodarone IV V is able to take his oral medication also I would consider stopping the oral anticoagulation and start him on heparin at this point until we have the swallow evaluation back. Kidney function remains elevated and nephrology is on the case. He continues to be on antibiotic. The examination is remarkable for lethargy was overall stable vital signs was marginally low blood pressure and diminished breathing sounds bilaterally regular rhythm. Assessment Pneumonia/sepsis Diarrhea which has improved Electrolytes imbalance Marginally low blood pressure Paroxysmal atrial fibrillation Difficulty swallowing Heart failure. The patient currently not in any heart failure Plan Continue amiodarone IV to we have the swallow evaluation DC Cardizem IV in the light of marginally low blood pressure Consider starting the patient on IV anticoagulation Follow-up with the patient Objective - Vital Signs Vital signs: Vital Signs Temp 97.9 F 03/07/23 04:00 Pulse 92 03/07/23 06:00 Resp 13 03/07/23 06:00 BP 100/71 03/07/23 06:00 Pulse Ox 99 03/07/23 06:00 FiO2 Intake & Output 03/06/23 03/07/23 03/07/23 18:59 06:59 18:59 Intake Total 1655 928.083 Output Total 430 360 Balance 1225 568.083 Weight 79.3 kg 82.1 kg Intake: IV 1280 Piperacillin-Tazobactam 3 100 .375 gm In Sodium Chloride 0.9% 100 ml @ 25 mls/hr IVPB Q8H [facility] Rx#: [id number] Potassium Chloride 10 meq 400 In Water For Injection 1 100ml.bag @ 100 mls/hr IVPB Q1HR [facility] Rx#: [id number] Sodium Chloride 0.9% 1, 780 000 ml @ 100 mls/hr IV . Q10H [facility] Rx#:[id number] Intake, IV Titration 375 928.083 Amount Dextrose 5% in Water 100 75 ml @ 618 mls/hr IV .Q10M ONE with Amiodarone 150 mg Rx#:[id number] Diltiazem 125 mg In 28.083 Sodium Chloride 0.9% 100 ml @ Per Protocol IV .Q0M [facility] Rx#:[id number] Sodium Chloride 0.45% 1, 300 900 000 ml @ 75 mls/hr IV . [id number] [facility] with Sodium Bicarb (1 Meq/ml) 150 ml Rx#:[id number] Output: Urine 430 360 Other: Voiding Method Indwelling Catheter Indwelling Catheter # Voids 1 - Labs CBC & Chem 7: 03/07/23 03:52 03/07/23 03:52 Labs: Abnormal Lab Results - Last 24 Hours (Table) 03/05/23 03/06/23 03/06/23 Range/Units 09:51 10:54 16:44 WBC (3.8-10.6) k/uL RBC (4.30-5.90) m/uL Hgb (13.0-17.5) gm/dL Hct (39.0-53.0) % Neutrophils # (1.3-7.7) k/uL Lymphocytes # (1.0-4.8) k/uL Monocytes # (0-1.0) k/uL Sodium (137-145) mmol/L Potassium 3.4 L (3.5-5.1) mmol/L Carbon Dioxide (22-30) mmol/L BUN (9-20) mg/dL Creatinine (0.66-1.25) mg/dL POC Glucose (mg/dL) (70-110) mg/dL Calcium (8.4-10.2) mg/dL AST (17-59) U/L Total Protein (6.3-8.2) g/dL Albumin (3.5-5.0) g/dL Urine Protein 1+ H (Negative) Urine Glucose (UA) Trace H (Negative) Urine Blood Moderate H (Negative) Urine WBC 8 H (0-5) /hpf Urine Bacteria Rare H (None) /hpf Hyaline Casts 32 H (0-2) /lpf Urine Mucus Rare H (None) /hpf Urine Yeast (Budding) Moderate H (None) /hpf Mycoplasma pneumon IgG 3.02 H (<=0.90) INDEX 03/06/23 03/07/23 03/07/23 Range/Units 18:54 00:44 03:52 WBC 23.5 H (3.8-10.6) k/uL RBC 3.45 L (4.30-5.90) m/uL Hgb 10.9 L (13.0-17.5) gm/dL Hct 32.0 L (39.0-53.0) % Neutrophils # 21.1 H (1.3-7.7) k/uL Lymphocytes # 0.4 L (1.0-4.8) k/uL Monocytes # 1.4 H (0-1.0) k/uL Sodium (137-145) mmol/L Potassium (3.5-5.1) mmol/L Carbon Dioxide (22-30) mmol/L BUN (9-20) mg/dL Creatinine (0.66-1.25) mg/dL POC Glucose (mg/dL) 117 H 122 H (70-110) mg/dL Calcium (8.4-10.2) mg/dL AST (17-59) U/L Total Protein (6.3-8.2) g/dL Albumin (3.5-5.0) g/dL Urine Protein (Negative) Urine Glucose (UA) (Negative) Urine Blood (Negative) Urine WBC (0-5) /hpf Urine Bacteria (None) /hpf Hyaline Casts (0-2) /lpf Urine Mucus (None) /hpf Urine Yeast (Budding) (None) /hpf Mycoplasma pneumon IgG (<=0.90) INDEX 03/07/23 Range/Units 03:52 WBC (3.8-10.6) k/uL RBC (4.30-5.90) m/uL Hgb (13.0-17.5) gm/dL Hct (39.0-53.0) % Neutrophils # (1.3-7.7) k/uL Lymphocytes # (1.0-4.8) k/uL Monocytes # (0-1.0) k/uL Sodium 131 L (137-145) mmol/L Potassium (3.5-5.1) mmol/L Carbon Dioxide 18 L (22-30) mmol/L BUN 51 H (9-20) mg/dL Creatinine 2.77 H (0.66-1.25) mg/dL POC Glucose (mg/dL) (70-110) mg/dL Calcium 7.6 L (8.4-10.2) mg/dL AST 60 H (17-59) U/L Total Protein 5.3 L (6.3-8.2) g/dL Albumin 2.0 L (3.5-5.0) g/dL Urine Protein (Negative) Urine Glucose (UA) (Negative) Urine Blood (Negative) Urine WBC (0-5) /hpf Urine Bacteria (None) /hpf Hyaline Casts (0-2) /lpf Urine Mucus (None) /hpf Urine Yeast (Budding) (None) /hpf Mycoplasma pneumon IgG (<=0.90) INDEX Microbiology - Last 24 Hours (Table) 03/05/23 06:00 Blood Culture - Preliminary Blood 03/05/23 05:45 Blood Culture - Preliminary Blood
[2023-03-07] MEDS ORDERED: FUROSEMIDE 10 MG/ML 10 ML VIAL IV STA (07:28)
[2023-03-07] MEDS: IPRATROPIUM-ALBUTEROL 3 ML NEB INHALATION PRN ×3 (08:22→16:13)
[2023-03-07] MEDS: MULTIVITAMINS, THERA 1 EACH TAB PO SCH (09:07)
[2023-03-07] MEDS: APIXABAN 5 MG TAB PO SCH ×3 (09:07→20:30)
[2023-03-07] MEDS: PANTOPRAZOLE 40 MG/10 ML VIAL IVP SCH (09:40)
[2023-03-07] MEDS: AMIODARONE 450 MG in DEXTROSE 5% IN WATER 250 ML IV SCH ×4 (09:45→17:16)
--- NOTE | 2023-03-07 10:25 | XR ---
EXAMINATION TYPE: XR chest 1V portable DATE OF EXAM: 03/07/2023 Comparison: 03/06/2023 Clinical History: 68-year-old male shortness of breath Findings: Heart borderline in size. Hyperinflation. Focal airspace opacity increasing left upper and midlung pe rsisting in the medial right base/right infrahilar region. No pleural effusion. Impression: COPD with multifocal airspace disease either persisting or worsening, particularly in the left upper lobe.
--- NOTE | 2023-03-07 11:10 | P.CON ---
Consult Note - . Consult date: 03/07/23 Assessment/Plan:: Wound care consultation: Reason for consultation: This is a 68-year-old gentleman admitted for exacerbation of numerous medical comorbidities. These are well delineated by his medical consultants and caregivers. Patient has been treated in the past for stasis ulcers of both lower extremities. At this time he has no open ulcerations but a large amount of swelling. Examination: This gentleman is unable to really answer questions. His lower extremities have 3-4+ edema. It has scaling and decreases consistent with severely chronic lymphedema. It encompasses the entire lower extremity below the knee including the toes and feet. Recommendation: Internal medicine has increased his diuretics. I would recommend placing foam or cotton balls between the toes and wrapping them from toes up to just below the knee, utilizing 44 inch Timur rolls. 1 must be cautious to pad the toes well to facilitate the use of compression without creating ulcerations. Elevation would also be of assistance in this endeavor. Thank you for the update to be of assistance in this gentleman scare.
--- NOTE | 2023-03-07 11:49 | P.PN ---
Subjective Progress Note Date: 03/07/23 68-year-old gentleman seen in the emergency department, room 27. He's not a particularly good historian, so much of the history is obtained from the primary service, and the ER afshan. The patient was in the emergency department, at 1:00 in the morning, on March 05. He came with complaints of altered mental status, diarrhea, and hypotension. He was apparently sent in from one of the local nursing homes. I could not get much history from the patient after this. But at the long-term, he apparently was having a low blood pressure, and low oxygen saturation levels. He was also profoundly weak. He was confused. His condition apparently was getting worse ear, so he was sent into be evaluated. His chest x-ray apparently shows a infiltrate, or mass, in the left upper lobe. A CAT scan was recommended by radiology. The patient is on 5 L of oxygen. His saturations were anywhere from 91-96%. He was getting saline at 130 mL an hour. He was getting both Zosyn and azithromycin. His lower extremities were wrapped in OLAMIDE bandages. His blood pressure when I went to see him was 92/62. Lab oratory includes a white count of 31.7, hemoglobin 12.3, hematocrit 36.9, and a platelet count 389,000. PTT was 24, INR 2.4, and PTT was 43.4. Sodium 125, potassium 3.1, chlorides 91, CO2 19, anion gap 15, urine 48, creatinine 2.99. This electrolyte profile was consistent with an anion gap metabolic acidosis, probably from renal failure. The patient's N-terminal proBNP was 4710. Troponin was 0.044. The albumin was 2.4. Urine was negative. EKG showed sinus tachycardia with a rate of 105 bpm. Chest x-ray showed large left upper lobe opacity, consistent with either neoplasm or infiltrate/pneumonia. The computed tomography scan showed some scarring in the right upper lobe, but on the left side, a large cavitary lesion which could reflect cavitating pneumonia or cancer. His history is apparently positive for COPD, secondary to tobacco use, atrial fibrillation, congestive heart failure, gastroesophageal reflux disease, hyperlipidemia, hypertension, osteoarthritis, and Herring's esophagus. The patient is seen today 03/06/2023 and follow-up in the intensive care unit. He is currently sitting up in bed. Awake and alert. Requiring 7 L high flow nasal cannula to maintain O2 saturations in the mid 90s. He's been afebrile. Hemodynamically stable. He has normal saline at 100 ML's per hour. Propofol calcitonin level was 1.06. He remains on Zosyn. He is currently nothing by mouth. His swallow evaluation is pending. He is on a heparin drip in place of his Eliquis. CAT scan did reveal a left upper lobe cavitary lesion. X-ray continues to show opacity over the right mid to lower lung suggestive of airspace disease. Similar left upper lobe infiltrate with a consolidative opacity near the left apex with central cavitation. White count 33.8. Hemoglobin 12.0. Sodium 129. Potassium 3.3. Bicarb 17. BUN 46. Creatinine 2.50. The patient is seen today 03/07/2023 in follow-up in the intensive care unit. He is currently resting in bed. Awake and alert in no acute distress. Maintaining O2 saturations in the 90s on 6 L high flow nasal cannula. He is afebrile. Chest x-ray reveals COPD with multifocal airspace disease persistent particularly in the left upper lobe. He is going for a barium swallow today. White count 23.5. Hemoglobin 10.9. Sodium 131 potassium 3.8. Bicarb 18. BUN 51. Creatinine 2.77. He remains on bronchodilators. Antibiotics in the form of Zosyn. Requiring amiodarone at 0.5 mg/m. He has remained nothing by mouth. The plan will be for a heparin drip per cardiology. He has 0.45% normal saline with 3 A of bicarb at 75 ML's per hour per nephrology. Objective - Vital Signs Vital signs: Vital Signs Temp 98.7 F 03/07/23 08:00 Pulse 91 03/07/23 11:00 Resp 18 03/07/23 11:00 BP 89/51 03/07/23 11:00 Pulse Ox 93 L 03/07/23 11:00 FiO2 Intake & Output 03/06/23 03/07/23 03/07/23 18:59 06:59 18:59 Intake Total 1655 928.083 756.333 Output Total 430 360 115 Balance 1225 568.083 641.333 Weight 79.3 kg 82.1 kg Intake: IV 1280 400 Piperacillin-Tazobactam 3 100 100 .375 gm In Sodium Chloride 0.9% 100 ml @ 25 mls/hr IVPB Q8H [facility] Rx#: [id number] Potassium Chloride 10 meq 400 In Water For Injection 1 100ml.bag @ 100 mls/hr IVPB Q1HR [facility] Rx#: [id number] Sodium Chloride 0.45% 1, 300 000 ml @ 75 mls/hr IV . [id number] [facility] with Sodium Bicarb (1 Meq/ml) 150 ml Rx#:[id number] Sodium Chloride 0.9% 1, 780 000 ml @ 100 mls/hr IV . Q10H [facility] Rx#:[id number] Intake, IV Titration 375 928.083 356.333 Amount Amiodarone 450 mg In 250 Dextrose 5% in Water 250 ml @ 0.5 MG/MIN 16.667 mls/hr IV .Q15H [facility] Rx#: [id number] Dextrose 5% in Water 100 75 ml @ 618 mls/hr IV .Q10M ONE with Amiodarone 150 mg Rx#:[id number] Diltiazem 125 mg In 28.083 31.333 Sodium Chloride 0.9% 100 ml @ Per Protocol IV .Q0M [facility] Rx#:[id number] Sodium Chloride 0.45% 1, 300 900 75 000 ml @ 75 mls/hr IV . [id number] [facility] with Sodium Bicarb (1 Meq/ml) 150 ml Rx#:[id number] Output: Urine 430 360 115 Other: Voiding Method Indwelling Catheter Indwelling Catheter Indwelling Catheter # Voids 1 - Exam GENERAL EXAM: Alert, frail 68-year-old male patient on 6 L high flow nasal cannula, comfortable in no apparent distress. HEAD: Normocephalic. EYES: Normal reaction of pupils, equal size. NOSE: Clear with pink turbinates. THROAT: No erythema or exudates. NECK: No masses, no JVD. CHEST: No chest wall deformity. LUNGS: Equal air entry with no crackles, wheeze, rhonchi or dullness. CVS: S1 and S2 normal with no audible murmur, regular rhythm. ABDOMEN: No hepatosplenomegaly, normal bowel sounds, no guarding or rigidity. SPINE: Severe kyphoscoliosis SKIN: No rashes CENTRAL NERVOUS SYSTEM: No focal deficits, tone is normal in all 4 extremities. EXTREMITIES: Changes of chronic venous stasis. Abnormal mobility. Ulcerations of the lower extremities. Peripheral pulses are intact. - Labs CBC & Chem 7: 03/07/23 03:52 03/07/23 03:52 Labs: Abnormal Lab Results - Last 24 Hours (Table) 03/05/23 03/06/23 03/06/23 Range/Units 09:51 16:44 18:54 WBC (3.8-10.6) k/uL RBC (4.30-5.90) m/uL Hgb (13.0-17.5) gm/dL Hct (39.0-53.0) % Neutrophils # (1.3-7.7) k/uL Lymphocytes # (1.0-4.8) k/uL Monocytes # (0-1.0) k/uL Sodium (137-145) mmol/L Potassium 3.4 L (3.5-5.1) mmol/L Carbon Dioxide (22-30) mmol/L BUN (9-20) mg/dL Creatinine (0.66-1.25) mg/dL POC Glucose (mg/dL) 117 H (70-110) mg/dL Calcium (8.4-10.2) mg/dL AST (17-59) U/L Total Protein (6.3-8.2) g/dL Albumin (3.5-5.0) g/dL Mycoplasma pneumon IgG 3.02 H (<=0.90) INDEX 03/07/23 03/07/23 03/07/23 Range/Units 00:44 03:52 03:52 WBC 23.5 H (3.8-10.6) k/uL RBC 3.45 L (4.30-5.90) m/uL Hgb 10.9 L (13.0-17.5) gm/dL Hct 32.0 L (39.0-53.0) % Neutrophils # 21.1 H (1.3-7.7) k/uL Lymphocytes # 0.4 L (1.0-4.8) k/uL Monocytes # 1.4 H (0-1.0) k/uL Sodium 131 L (137-145) mmol/L Potassium (3.5-5.1) mmol/L Carbon Dioxide 18 L (22-30) mmol/L BUN 51 H (9-20) mg/dL Creatinine 2.77 H (0.66-1.25) mg/dL POC Glucose (mg/dL) 122 H (70-110) mg/dL Calcium 7.6 L (8.4-10.2) mg/dL AST 60 H (17-59) U/L Total Protein 5.3 L (6.3-8.2) g/dL Albumin 2.0 L (3.5-5.0) g/dL Mycoplasma pneumon IgG (<=0.90) INDEX Microbiology - Last 24 Hours (Table) 03/05/23 06:00 Blood Culture - Preliminary Blood 03/05/23 05:45 Blood Culture - Preliminary Blood Assessment and Plan Assessment: Acute hypoxemic respiratory failure secondary to a cavitary pneumonia or cavitary neoplasm, left upper lobe Probable COPD from previous tobacco use Acute mental status changes, may reflect sepsis, or metabolic encephalopathy History of chronic atrial fibrillation History of congestive heart failure History of gastroesophageal reflux disease History of hypertension History of hyperlipidemia History of osteoarthritis History of Herring's esophagus Bilateral lower extremity ulcerations and chronic venous stasis Multiple other medical problems and comorbidities Plan: The patient was seen and evaluated Chest x-ray, labs and medications reviewed Continue Zosyn Heparin drip for anticoagulation while nothing by mouth Barium swallow scheduled for today Titrate the FiO2 as tolerated Wound care consult for lower extremities We will continue to follow I have personally seen and examined the patient, performed the documentation and the assessment and plan as written. Number of minutes spent on the visit: 10.
--- NOTE | 2023-03-07 12:03 | P.PN ---
Subjective Patient is seen for follow-up for acute kidney injury and hyponatremia. Currently maintained on IV fluids. Renal function had improved but creatinine worse again today. Urine output has dropped as well to only about 10-20 mL per hour. Patient is maintained on amiodarone for A. fib with RVR. Mentation has improved and patient is answering simple questions. CODE STATUS to be discussed today. S Objective - Vital Signs Vital signs: Vital Signs Temp 98.7 F 03/07/23 08:00 Pulse 91 03/07/23 11:00 Resp 18 03/07/23 11:00 BP 89/51 03/07/23 11:00 Pulse Ox 96 03/07/23 11:55 FiO2 Intake & Output 03/06/23 03/07/23 03/07/23 18:59 06:59 18:59 Intake Total 1655 928.083 756.333 Output Total 430 360 115 Balance 1225 568.083 641.333 Weight 79.3 kg 82.1 kg Intake: IV 1280 400 Piperacillin-Tazobactam 3 100 100 .375 gm In Sodium Chloride 0.9% 100 ml @ 25 mls/hr IVPB Q8H [facility] Rx#: [id number] Potassium Chloride 10 meq 400 In Water For Injection 1 100ml.bag @ 100 mls/hr IVPB Q1HR [facility] Rx#: [id number] Sodium Chloride 0.45% 1, 300 000 ml @ 75 mls/hr IV . [id number] [facility] with Sodium Bicarb (1 Meq/ml) 150 ml Rx#:[id number] Sodium Chloride 0.9% 1, 780 000 ml @ 100 mls/hr IV . Q10H [facility] Rx#:[id number] Intake, IV Titration 375 928.083 356.333 Amount Amiodarone 450 mg In 250 Dextrose 5% in Water 250 ml @ 0.5 MG/MIN 16.667 mls/hr IV .Q15H [facility] Rx#: [id number] Dextrose 5% in Water 100 75 ml @ 618 mls/hr IV .Q10M ONE with Amiodarone 150 mg Rx#:[id number] Diltiazem 125 mg In 28.083 31.333 Sodium Chloride 0.9% 100 ml @ Per Protocol IV .Q0M [facility] Rx#:[id number] Sodium Chloride 0.45% 1, 300 900 75 000 ml @ 75 mls/hr IV . [id number] [facility] with Sodium Bicarb (1 Meq/ml) 150 ml Rx#:[id number] Output: Urine 430 360 115 Other: Voiding Method Indwelling Catheter Indwelling Catheter Indwelling Catheter # Voids 1 - Exam Patient is awake, no acute distress On service simple questions appropriately Examination of the heart S1 and S2 Examination of the lungs decreased breath sounds at the bases particularly left Examination of the abdomen reveals it to be soft nontender Examination lower extremity shows bilateral chronic skin changes no draining wounds noted. - Labs CBC & Chem 7: 03/07/23 03:52 03/07/23 03:52 Labs: Abnormal Lab Results - Last 24 Hours (Table) 03/05/23 03/06/23 03/06/23 Range/Units 09:51 16:44 18:54 WBC (3.8-10.6) k/uL RBC (4.30-5.90) m/uL Hgb (13.0-17.5) gm/dL Hct (39.0-53.0) % Neutrophils # (1.3-7.7) k/uL Lymphocytes # (1.0-4.8) k/uL Monocytes # (0-1.0) k/uL Sodium (137-145) mmol/L Potassium 3.4 L (3.5-5.1) mmol/L Carbon Dioxide (22-30) mmol/L BUN (9-20) mg/dL Creatinine (0.66-1.25) mg/dL POC Glucose (mg/dL) 117 H (70-110) mg/dL Calcium (8.4-10.2) mg/dL AST (17-59) U/L Total Protein (6.3-8.2) g/dL Albumin (3.5-5.0) g/dL Mycoplasma pneumon IgG 3.02 H (<=0.90) INDEX 03/07/23 03/07/23 03/07/23 Range/Units 00:44 03:52 03:52 WBC 23.5 H (3.8-10.6) k/uL RBC 3.45 L (4.30-5.90) m/uL Hgb 10.9 L (13.0-17.5) gm/dL Hct 32.0 L (39.0-53.0) % Neutrophils # 21.1 H (1.3-7.7) k/uL Lymphocytes # 0.4 L (1.0-4.8) k/uL Monocytes # 1.4 H (0-1.0) k/uL Sodium 131 L (137-145) mmol/L Potassium (3.5-5.1) mmol/L Carbon Dioxide 18 L (22-30) mmol/L BUN 51 H (9-20) mg/dL Creatinine 2.77 H (0.66-1.25) mg/dL POC Glucose (mg/dL) 122 H (70-110) mg/dL Calcium 7.6 L (8.4-10.2) mg/dL AST 60 H (17-59) U/L Total Protein 5.3 L (6.3-8.2) g/dL Albumin 2.0 L (3.5-5.0) g/dL Mycoplasma pneumon IgG (<=0.90) INDEX Microbiology - Last 24 Hours (Table) 03/05/23 06:00 Blood Culture - Preliminary Blood 03/05/23 05:45 Blood Culture - Preliminary Blood Assessment and Plan Assessment: 1. Acute kidney injury, ATN associated with hypotension and underlying infection. Continue with IV fluids. UA shows 1+ protein and no blood or WBCs. No obstruction noted on ultrasound. 2. Left lung pneumonia versus mass maintained on antibiotics 3. Mental status changes secondary to underlying infection 4. Chronic A. fib 5. Hypovolemic hyponatremia, improving with saline administration. 6. Hypokalemia associated with poor oral intake 7. Metabolic acidosis currently maintained on IV bicarb 8. Cardiomyopathy with EF of 40-45% Plan: IV Lasix 1 Continue with IV bicarb Overall prognosis is guarded. If renal function continues to deteriorate patient is not an ideal candidate for renal replacement therapy
[2023-03-07 12:06] LABS: Glucose,Whole Blood 132 mg/dL (70-110)
--- NOTE | 2023-03-07 15:18 | FL ---
EXAMINATION TYPE: Aspiration with thin liquids. Was penetration with nectar thick liquids. DATE OF EXAM: 03/07/2023 COMPARISON: NONE HISTORY: Dysphagia TECHNIQUE: Fluoroscopy. FINDINGS: Fluoroscopic guidance was provided for the procedure performed in conjunction with the [facility] [place] pathology department. Please see complete report forthcoming from the Speech Pathology departmen t. Various consistencies from thin liquid to solids were administered. Fluoroscopy time 1 minute 18 seconds. Number of images: 0. DAP: 160.13 Transient penetration with nectar thick liquids evident. There was penetration with some mild aspirat ion with thin liquids. No significant pooling was observed in the vallecula. There was normal propulsion of the bolus. IMPRESSION: 1.
[2023-03-07] MEDS ORDERED: ZINC OXIDE PASTE (Z-GUARD) 1 APPLIC TOPICAL PRN (15:58)
[2023-03-07] MEDS: DILTIAZEM 125 MG in SODIUM CHLORIDE 0.9% 100 ML IV SCH (15:59)
[2023-03-07 18:58] LABS: Allen Test Performed? Yes
[2023-03-07 18:59] LABS: ABG Base Excess -1.3 mmol/L; ABG HCO3 25 mmol/L (21-25); ABG PCO2 52 mmHg (35-45); ABG PO2 60 mmHg (83-108); ABG TCO2 27 mmol/L (19-24)
[2023-03-07] MEDS: LATANOPROST 0.005% OPHTH DROPS 2.5 ML BTL LEFT EYE SCH (20:30)
[2023-03-07] MEDS: ATORVASTATIN 80 MG TAB PO SCH (20:30)
[2023-03-07 23:59] LABS: Glucose,Whole Blood 131 mg/dL (70-110)
[2023-03-08] MEDS: HYDROmorphone 0.5 MG/0.5 ML SYRINGE IVP PRN (03:07)
[2023-03-08] MEDS: PIPERACILLIN-TAZOBACTAM 3.375 GM in SODIUM CHLORIDE 0.9% 100 ML IVPB SCH ×3 (05:48→21:23)
[2023-03-08] MEDS: AMIODARONE 450 MG in DEXTROSE 5% IN WATER 250 ML IV SCH ×4 (05:49→15:59)
[2023-03-08 06:22] LABS: Glucose,Whole Blood 135 mg/dL (70-110)
[2023-03-08 06:41] LABS: Basophils # (A) 0.2 k/uL (0-0.2); Basophils % (A) 1 %; Eosinophils # (A) 0.3 k/uL (0-0.7); Eosinophils % (A) 1 %; HCT 33.8 % (39.0-53.0); Lymphocytes # (A) 0.5 k/uL (1.0-4.8); Lymphocytes % (A) 2 %; MCH 30.5 pg (25.0-35.0); MCHC 32.6 g/dL (31.0-37.0); MCV 93.7 fL (80.0-100.0); Mean Platelet Volume 8.2; Monocytes # (A) 0.8 k/uL (0-1.0); Monocytes % (A) 2 %; Neutrophils % (A) 93 %; Platelet Count 302 k/uL (150-450); RBC 3.61 m/uL (4.30-5.90); RDW 14.8 % (11.5-15.5); WBC 32.6 k/uL (3.8-10.6)
[2023-03-08 06:58] LABS: Neutrophils # (A) 30.4 k/uL (1.3-7.7)
[2023-03-08 06:59] LABS: African American GFR (CKD) 20 (>60 ml/min/1.73 sqM); Anion Gap 13 mmol/L; Blood Urea Nitrogen 57 mg/dL (9-20); Calcium 7.3 mg/dL (8.4-10.2); Carbon Dioxide 24 mmol/L (22-30); Chloride 99 mmol/L (98-107); Glucose 115 mg/dL (74-99); Non-African American GFR(CKD) 17 (>60 ml/min/1.73 sqM); Potassium 3.4 mmol/L (3.5-5.1); Sodium 136 mmol/L (137-145)
--- NOTE | 2023-03-08 07:07 | P.PN ---
Subjective Progress Note Date: 03/08/23 Principal diagnosis: Paroxysmal atrial fibrillation The patient is a 68-year-old gentleman with a past medical history significant for heart failure and paroxysmal in nature patient as well as multiple comorbid conditions who was admitted to the hospital with sepsis related to pneumonia and also diarrhea. He was also diagnosed with electrolytes imbalance with hypokalemia likely secondary to diarrhea. Beside that he was hypotensive also likely secondary to diarrhea and sepsis. Beside that he was in renal failure 03/06/2022 The patient was seen and evaluated today. He seems to be stable was marginally low blood pressure but currently not on any vasopressors. His heart rate has a slightly improved because he was tachycardic yesterday. Currently he is on IV fluid. Urine output is marginal. Creatinine continues to be elevated. The creatinine remains elevated at this point and above the baseline. He is maintaining normal sinus mechanism. He has a swallowing evaluation and for that reason we are holding oral anticoagulation and if that the scenario he might benefit from IV anticoagulation using heparin IV and he cannot receive Lovenox because he is in renal failure. The examination is remarkable for bilateral rhonchi with irregular rhythm and distant heart sounds and bilateral lower extremity edema March 072023 The patient was seen and evaluated this morning. His diarrhea has improved significantly. He is back in sinus mechanism with heart rate in the 80s. His pressure is marginal including systolic pressure and mean pressure. For that reason I'm going to stop the Cardizem at this point and keep him on Darvon. He cannot swallow and for that reason we'll continue the amiodarone IV V is able to take his oral medication also I would consider stopping the oral anticoagulation and start him on heparin at this point until we have the swallow evaluation back. Kidney function remains elevated and nephrology is on the case. He continues to be on antibiotic. The examination is remarkable for lethargy was overall stable vital signs was marginally low blood pressure and diminished breathing sounds bilaterally regular rhythm. March 082023 The patient was seen and evaluated this morning. He is somewhat lethargic. He is in normal sinus mechanism. He continues to be on amiodarone IV. I would consider switch him to amiodarone orally. He is on oral anticoagulation. The creatinine is worse. Nephrology is on the case. The blood pressure remains marginal as well. The physical examination is remarkable for lethargy along with stable vital signs was marginally low blood pressure and bilateral lower extremities edema. The heart rate is regular. He has diminished breathing sounds bilaterally. Assessment Pneumonia/sepsis Diarrhea which has improved Electrolytes imbalance Marginally low blood pressure Paroxysmal atrial fibrillation Difficulty swallowing Heart failure. The patient currently not in any heart failure Plan Continue amiodarone and switch the patient to oral amiodarone Continue oral anticoagulation Continue monitoring her kidney function and electrolytes Follow-up with the patient Objective - Vital Signs Vital signs: Vital Signs Temp 97.8 F 03/08/23 04:00 Pulse 103 H 03/08/23 06:00 Resp 17 03/08/23 06:00 BP 97/58 03/08/23 06:00 Pulse Ox 94 L 03/08/23 06:00 FiO2 Intake & Output 03/07/23 03/08/23 03/08/23 18:59 06:59 18:59 Intake Total 1337.749 975 Output Total 405 430 Balance 932.749 545 Weight 83.4 kg Intake: IV 925 975 Piperacillin-Tazobactam 3 100 .375 gm In Sodium Chloride 0.9% 100 ml @ 25 mls/hr IVPB Q8H [facility] Rx#: [id number] Sodium Chloride 0.45% 1, 825 975 000 ml @ 75 mls/hr IV . [id number] [facility] with Sodium Bicarb (1 Meq/ml) 150 ml Rx#:[id number] Intake, IV Titration 412.749 Amount Amiodarone 450 mg In 250 Dextrose 5% in Water 250 ml @ 0.5 MG/MIN 16.667 mls/hr IV .Q15H [facility] Rx#: [id number] Diltiazem 125 mg In 87.749 Sodium Chloride 0.9% 100 ml @ Per Protocol IV .Q0M [facility] Rx#:[id number] Sodium Chloride 0.45% 1, 75 000 ml @ 75 mls/hr IV . [id number] [facility] with Sodium Bicarb (1 Meq/ml) 150 ml Rx#:[id number] Output: Urine 405 430 Other: Voiding Method Indwelling Catheter Indwelling Catheter - Labs CBC & Chem 7: 03/08/23 05:38 03/08/23 05:38 Labs: Abnormal Lab Results - Last 24 Hours (Table) 03/07/23 03/07/23 03/07/23 Range/Units 12:04 18:49 23:58 WBC (3.8-10.6) k/uL RBC (4.30-5.90) m/uL Hgb (13.0-17.5) gm/dL Hct (39.0-53.0) % Neutrophils # (1.3-7.7) k/uL Lymphocytes # (1.0-4.8) k/uL ABG pH 7.30 L (7.35-7.45) ABG pCO2 52 H (35-45) mmHg ABG pO2 60 L (83-108) mmHg ABG Total CO2 27 H (19-24) mmol/L ABG O2 Saturation 91.0 L (94-97) % Sodium (137-145) mmol/L Potassium (3.5-5.1) mmol/L BUN (9-20) mg/dL Creatinine (0.66-1.25) mg/dL Glucose (74-99) mg/dL POC Glucose (mg/dL) 132 H 131 H (70-110) mg/dL Calcium (8.4-10.2) mg/dL 03/08/23 03/08/23 03/08/23 Range/Units 05:38 05:38 06:21 WBC 32.6 H (3.8-10.6) k/uL RBC 3.61 L (4.30-5.90) m/uL Hgb 11.0 L (13.0-17.5) gm/dL Hct 33.8 L (39.0-53.0) % Neutrophils # 30.4 H (1.3-7.7) k/uL Lymphocytes # 0.5 L (1.0-4.8) k/uL ABG pH (7.35-7.45) ABG pCO2 (35-45) mmHg ABG pO2 (83-108) mmHg ABG Total CO2 (19-24) mmol/L ABG O2 Saturation (94-97) % Sodium 136 L (137-145) mmol/L Potassium 3.4 L (3.5-5.1) mmol/L BUN 57 H (9-20) mg/dL Creatinine 3.38 H (0.66-1.25) mg/dL Glucose 115 H (74-99) mg/dL POC Glucose (mg/dL) 135 H (70-110) mg/dL Calcium 7.3 L (8.4-10.2) mg/dL Microbiology - Last 24 Hours (Table) 03/05/23 06:00 Blood Culture - Preliminary Blood 03/05/23 05:45 Blood Culture - Preliminary Blood
[2023-03-08] MEDS: MULTIVITAMINS, THERA 1 EACH TAB PO SCH (08:17)
[2023-03-08] MEDS: PANTOPRAZOLE 40 MG/10 ML VIAL IVP SCH (08:17)
[2023-03-08] MEDS: APIXABAN 5 MG TAB PO SCH ×2 (08:18→20:19)
[2023-03-08] MEDS: AMIODARONE 200 MG TAB PO SCH ×2 (08:18→20:19)
[2023-03-08] MEDS: POTASSIUM BICARBONATE/CIT AC 20 MEQ TABLET.EFF NG-TUBE SCH ×2 (08:28→10:23)
[2023-03-08] MEDS: LACTATED RINGERS 1,000 ML IV SCH ×2 (10:42→22:02)
[2023-03-08 11:16] VITALS: BMI 24.9
[2023-03-08 11:38] LABS: Glucose,Whole Blood 144 mg/dL (70-110)
--- NOTE | 2023-03-08 11:55 | P.PN ---
Subjective Patient is seen for follow-up for acute kidney injury and hyponatremia. Currently maintained on IV fluids. Renal function had improved but creatinine worse again today. Urine output has dropped as well to only about 10-20 mL per hour. Patient is maintained on amiodarone for A. fib with RVR. Mentation has improved and patient is answering simple questions. CODE STATUS changed to no code no intubation. Possible comfort care measures tomorrow. S Objective - Vital Signs Vital signs: Vital Signs Temp 98.2 F 03/08/23 08:00 Pulse 98 03/08/23 11:00 Resp 23 03/08/23 11:00 BP 103/57 03/08/23 11:00 Pulse Ox 99 03/08/23 11:00 FiO2 Intake & Output 03/07/23 03/08/23 03/08/23 18:59 06:59 18:59 Intake Total 1337.749 975 550.0 Output Total 405 430 92 Balance 932.749 545 458.0 Weight 83.4 kg 83.4 kg Intake: IV 925 975 400.0 Lactated Ringers 1,000 ml 112.5 @ 75 mls/hr IV .[id number] [facility] Rx#:[id number] Piperacillin-Tazobactam 3 100 100 .375 gm In Sodium Chloride 0.9% 100 ml @ 25 mls/hr IVPB Q8H [facility] Rx#: [id number] Sodium Chloride 0.45% 1, 825 975 187.5 000 ml @ 75 mls/hr IV . [id number] [facility] with Sodium Bicarb (1 Meq/ml) 150 ml Rx#:[id number] Intake, IV Titration 412.749 Amount Amiodarone 450 mg In 250 Dextrose 5% in Water 250 ml @ 0.5 MG/MIN 16.667 mls/hr IV .Q15H [facility] Rx#: [id number] Diltiazem 125 mg In 87.749 Sodium Chloride 0.9% 100 ml @ Per Protocol IV .Q0M [facility] Rx#:[id number] Sodium Chloride 0.45% 1, 75 000 ml @ 75 mls/hr IV . [id number] [facility] with Sodium Bicarb (1 Meq/ml) 150 ml Rx#:[id number] Oral 150 Output: Urine 405 430 92 Other: Voiding Method Indwelling Catheter Indwelling Catheter Indwelling Catheter - Exam Patient is awake, no acute distress Answers simple questions appropriately Examination of the heart S1 and S2 Examination of the lungs decreased breath sounds at the bases particularly left Examination of the abdomen reveals it to be soft nontender Examination lower extremity shows bilateral chronic skin changes no draining wounds noted. - Labs CBC & Chem 7: 03/08/23 05:38 03/08/23 05:38 Labs: Abnormal Lab Results - Last 24 Hours (Table) 03/07/23 03/07/23 03/07/23 Range/Units 12:04 18:49 23:58 WBC (3.8-10.6) k/uL RBC (4.30-5.90) m/uL Hgb (13.0-17.5) gm/dL Hct (39.0-53.0) % Neutrophils # (1.3-7.7) k/uL Lymphocytes # (1.0-4.8) k/uL ABG pH 7.30 L (7.35-7.45) ABG pCO2 52 H (35-45) mmHg ABG pO2 60 L (83-108) mmHg ABG Total CO2 27 H (19-24) mmol/L ABG O2 Saturation 91.0 L (94-97) % Sodium (137-145) mmol/L Potassium (3.5-5.1) mmol/L BUN (9-20) mg/dL Creatinine (0.66-1.25) mg/dL Glucose (74-99) mg/dL POC Glucose (mg/dL) 132 H 131 H (70-110) mg/dL Calcium (8.4-10.2) mg/dL 03/08/23 03/08/23 03/08/23 Range/Units 05:38 05:38 06:21 WBC 32.6 H (3.8-10.6) k/uL RBC 3.61 L (4.30-5.90) m/uL Hgb 11.0 L (13.0-17.5) gm/dL Hct 33.8 L (39.0-53.0) % Neutrophils # 30.4 H (1.3-7.7) k/uL Lymphocytes # 0.5 L (1.0-4.8) k/uL ABG pH (7.35-7.45) ABG pCO2 (35-45) mmHg ABG pO2 (83-108) mmHg ABG Total CO2 (19-24) mmol/L ABG O2 Saturation (94-97) % Sodium 136 L (137-145) mmol/L Potassium 3.4 L (3.5-5.1) mmol/L BUN 57 H (9-20) mg/dL Creatinine 3.38 H (0.66-1.25) mg/dL Glucose 115 H (74-99) mg/dL POC Glucose (mg/dL) 135 H (70-110) mg/dL Calcium 7.3 L (8.4-10.2) mg/dL 03/08/23 Range/Units 11:36 WBC (3.8-10.6) k/uL RBC (4.30-5.90) m/uL Hgb (13.0-17.5) gm/dL Hct (39.0-53.0) % Neutrophils # (1.3-7.7) k/uL Lymphocytes # (1.0-4.8) k/uL ABG pH (7.35-7.45) ABG pCO2 (35-45) mmHg ABG pO2 (83-108) mmHg ABG Total CO2 (19-24) mmol/L ABG O2 Saturation (94-97) % Sodium (137-145) mmol/L Potassium (3.5-5.1) mmol/L BUN (9-20) mg/dL Creatinine (0.66-1.25) mg/dL Glucose (74-99) mg/dL POC Glucose (mg/dL) 144 H (70-110) mg/dL Calcium (8.4-10.2) mg/dL Microbiology - Last 24 Hours (Table) 03/05/23 06:00 Blood Culture - Preliminary Blood 03/05/23 05:45 Blood Culture - Preliminary Blood Assessment and Plan Assessment: 1. Acute kidney injury, ATN associated with hypotension and underlying infection. Continue with IV fluids. UA shows 1+ protein and no blood or WBCs. No obstruction noted on ultrasound. 2. Left lung pneumonia versus mass maintained on antibiotics 3. Mental status changes secondary to underlying infection 4. Chronic A. fib 5. Hypovolemic hyponatremia, improving with saline administration. 6. Hypokalemia associated with poor oral intake 7. Metabolic acidosis currently maintained on IV bicarb 8. Cardiomyopathy with EF of 40-45% Plan: Continue IV fluids Replace potassium No plans for renal replacement therapy.
[2023-03-08] MEDS: SODIUM CHLORIDE 0.45% 1,000 ML with SODIUM BICARB (1 MEQ/ML) 150 ML IV SCH ×2 (11:57)
--- NOTE | 2023-03-08 12:06 | XR ---
EXAMINATION TYPE: XR chest 1V portable DATE OF EXAM: 03/08/2023 Comparison: 03/07/2023 Clinical History: 68-year-old male Cavitating pneumonia or neoplasm Findings: COPD. Borderline heart size. Ongoing prominent opacities left upper mid lung and worsening at the [facility]. Impression: COPD with ongoing opacities left upper and midlung. Worsening aeration and airspace disease [facility].
--- NOTE | 2023-03-08 12:34 | P.PN ---
Subjective Progress Note Date: 03/08/23 68-year-old gentleman seen in the emergency department, room 27. He's not a particularly good historian, so much of the history is obtained from the primary service, and the ER afshan. The patient was in the emergency department, at 1:00 in the morning, on March 05. He came with complaints of altered mental status, diarrhea, and hypotension. He was apparently sent in from one of the local nursing homes. I could not get much history from the patient after this. [facility], he apparently was having a low blood pressure, and low oxygen saturation levels. He was also profoundly weak. He was confused. His condition apparently was getting worse ear, so he was sent into be evaluated. His chest x-ray apparently shows a infiltrate, or mass, in the left upper lobe. A CAT scan was recommended by radiology. The patient is on 5 L of oxygen. His saturations were anywhere from 91-96%. He was getting saline at 130 mL an hour. He was getting both Zosyn and azithromycin. His lower extremities were wrapped in OLAMIDE bandages. His blood pressure when I went to see him was 92/62. Lab oratory includes a white count of 31.7, hemoglobin 12.3, hematocrit 36.9, and a platelet count 389,000. PTT was 24, INR 2.4, and PTT was 43.4. Sodium 125, potassium 3.1, chlorides 91, CO2 19, anion gap 15, urine 48, creatinine 2.99. This electrolyte profile was consistent with an anion gap metabolic acidosis, probably from renal failure. The patient's N-terminal proBNP was 4710. Troponin was 0.044. The albumin was 2.4. Urine was negative. EKG showed sinus tachycardia with a rate of 105 bpm. Chest x-ray showed large left upper lobe opacity, consistent with either neoplasm or infiltrate/pneumonia. The computed tomography scan showed some scarring in the right upper lobe, but on the left side, a large cavitary lesion which could reflect cavitating pneumonia or cancer. His history is apparently positive for COPD, secondary to tobacco use, atrial fibrillation, congestive heart failure, gastroesophageal reflux disease, hyperlipidemia, hypertension, osteoarthritis, and Herring's esophagus. The patient is seen today 03/06/2023 and follow-up in the intensive care unit. He is currently sitting up in bed. Awake and alert. Requiring 7 L high flow nasal cannula to maintain O2 saturations in the mid 90s. He's been afebrile. Hemodynamically stable. He has normal saline at 100 ML's per hour. Propofol calcitonin level was 1.06. He remains on Zosyn. He is currently nothing by mouth. His swallow evaluation is pending. He is on a heparin drip in place of his Eliquis. CAT scan did reveal a left upper lobe cavitary lesion. X-ray continues to show opacity over the right mid to lower lung suggestive of airspace disease. Similar left upper lobe infiltrate with a consolidative opacity near the left apex with central cavitation. White count 33.8. Hemoglobin 12.0. Sodium 129. Potassium 3.3. Bicarb 17. BUN 46. Creatinine 2.50. The patient is seen today 03/07/2023 in follow-up in the intensive care unit. He is currently resting in bed. Awake and alert in no acute distress. Maintaining O2 saturations in the 90s on 6 L high flow nasal cannula. He is afebrile. Chest x-ray reveals COPD with multifocal airspace disease persistent particularly in the left upper lobe. He is going for a barium swallow today. White count 23.5. Hemoglobin 10.9. Sodium 131 potassium 3.8. Bicarb 18. BUN 51. Creatinine 2.77. He remains on bronchodilators. Antibiotics in the form of Zosyn. Requiring amiodarone at 0.5 mg/m. He has remained nothing by mouth. The plan will be for a heparin drip per cardiology. He has 0.45% normal saline with 3 A of bicarb at 75 ML's per hour per nephrology. The patient is seen today 03/08/2023 in follow-up in the intensive care unit. He is quite obtunded this morning. Difficult to arouse. He is maintaining O2 saturations in the 90s on 6 L high flow nasal cannula. Arterial blood gases from last evening revealed a pO2 of 60, pCO2 of 52 and a pH of 7.30. He is currently on amiodarone at 0.5 pg/m. Normal saline at KVO. 0.45% normal saline with 3 A of bicarb at 75 ML's per hour. X-ray reveals COPD with ongoing opacities in the left upper and midlung. Worsening aeration and airspace disease at the right base. Cultures reveal no growth. White count 32.6. Hemoglobin 11.0. Sodium 136. Potassium 3.4. Bicarb 24. He 157. Creatinine 3.3. Glucose 115. He remains on antibiotics in the form of Zosyn. Eliquis for anticoagulation. Lactated Ringer's at 75 ML's per hour. Objective - Vital Signs Vital signs: Vital Signs Temp 98.4 F 03/08/23 12:00 Pulse 114 H 03/08/23 12:00 Resp 21 03/08/23 12:00 BP 106/57 03/08/23 12:00 Pulse Ox 95 03/08/23 12:00 FiO2 Intake & Output 03/07/23 03/08/23 03/08/23 18:59 06:59 18:59 Intake Total 1337.749 975 625.0 Output Total 405 430 105 Balance 932.749 545 520.0 Weight 83.4 kg 83.4 kg Intake: IV 925 975 475.0 Lactated Ringers 1,000 ml 112.5 @ 75 mls/hr IV .[id number] [facility] Rx#:[id number] Piperacillin-Tazobactam 3 100 100 .375 gm In Sodium Chloride 0.9% 100 ml @ 25 mls/hr IVPB Q8H [facility] Rx#: [id number] Sodium Chloride 0.45% 1, 825 975 262.5 000 ml @ 75 mls/hr IV . [id number] [facility] with Sodium Bicarb (1 Meq/ml) 150 ml Rx#:[id number] Intake, IV Titration 412.749 Amount Amiodarone 450 mg In 250 Dextrose 5% in Water 250 ml @ 0.5 MG/MIN 16.667 mls/hr IV .Q15H [facility] Rx#: [id number] Diltiazem 125 mg In 87.749 Sodium Chloride 0.9% 100 ml @ Per Protocol IV .Q0M [facility] Rx#:[id number] Sodium Chloride 0.45% 1, 75 000 ml @ 75 mls/hr IV . [id number] [facility] with Sodium Bicarb (1 Meq/ml) 150 ml Rx#:[id number] Oral 150 Output: Urine 405 430 105 Other: Voiding Method Indwelling Catheter Indwelling Catheter Indwelling Catheter - Exam GENERAL EXAM: Obtunded, frail 68-year-old male patient on 6 L high flow nasal cannula, in no apparent distress. HEAD: Normocephalic. EYES: Normal reaction of pupils, equal size. NOSE: Clear with pink turbinates. THROAT: No erythema or exudates. NECK: No masses, no JVD. CHEST: No chest wall deformity. LUNGS: Equal air entry with bilateral scattered rhonchi. CVS: S1 and S2 normal with no audible murmur, regular rhythm. ABDOMEN: No hepatosplenomegaly, normal bowel sounds, no guarding or rigidity. SPINE: Severe kyphoscoliosis SKIN: Stage II decubitus ulcers CENTRAL NERVOUS SYSTEM: No focal deficits, tone is normal in all 4 extremities. EXTREMITIES: Changes of chronic venous stasis. Abnormal mobility. Ulcerations of the lower extremities. Peripheral pulses are intact. - Labs CBC & Chem 7: 03/08/23 05:38 03/08/23 05:38 Labs: Abnormal Lab Results - Last 24 Hours (Table) 03/07/23 03/07/23 03/08/23 Range/Units 18:49 23:58 05:38 WBC 32.6 H (3.8-10.6) k/uL RBC 3.61 L (4.30-5.90) m/uL Hgb 11.0 L (13.0-17.5) gm/dL Hct 33.8 L (39.0-53.0) % Neutrophils # 30.4 H (1.3-7.7) k/uL Lymphocytes # 0.5 L (1.0-4.8) k/uL ABG pH 7.30 L (7.35-7.45) ABG pCO2 52 H (35-45) mmHg ABG pO2 60 L (83-108) mmHg ABG Total CO2 27 H (19-24) mmol/L ABG O2 Saturation 91.0 L (94-97) % Sodium (137-145) mmol/L Potassium (3.5-5.1) mmol/L BUN (9-20) mg/dL Creatinine (0.66-1.25) mg/dL Glucose (74-99) mg/dL POC Glucose (mg/dL) 131 H (70-110) mg/dL Calcium (8.4-10.2) mg/dL 03/08/23 03/08/23 03/08/23 Range/Units 05:38 06:21 11:36 WBC (3.8-10.6) k/uL RBC (4.30-5.90) m/uL Hgb (13.0-17.5) gm/dL Hct (39.0-53.0) % Neutrophils # (1.3-7.7) k/uL Lymphocytes # (1.0-4.8) k/uL ABG pH (7.35-7.45) ABG pCO2 (35-45) mmHg ABG pO2 (83-108) mmHg ABG Total CO2 (19-24) mmol/L ABG O2 Saturation (94-97) % Sodium 136 L (137-145) mmol/L Potassium 3.4 L (3.5-5.1) mmol/L BUN 57 H (9-20) mg/dL Creatinine 3.38 H (0.66-1.25) mg/dL Glucose 115 H (74-99) mg/dL POC Glucose (mg/dL) 135 H 144 H (70-110) mg/dL Calcium 7.3 L (8.4-10.2) mg/dL Microbiology - Last 24 Hours (Table) 03/05/23 06:00 Blood Culture - Preliminary Blood 03/05/23 05:45 Blood Culture - Preliminary Blood Assessment and Plan Assessment: Acute hypoxemic respiratory failure secondary to a cavitary pneumonia or cavitar y neoplasm, left upper lobe and bilateral patchy opacities Probable COPD from previous tobacco use Acute mental status changes, may reflect sepsis, or metabolic encephalopathy History of chronic atrial fibrillation History of congestive heart failure History of gastroesophageal reflux disease History of hypertension History of hyperlipidemia History of osteoarthritis History of Herring's esophagus Bilateral lower extremity ulcerations and chronic venous stasis Severe kyphoscoliosis Decubitus ulcers Multiple other medical problems and comorbidities with poor overall functional performance Plan: The patient was seen and evaluated Chest x-ray, ABGs, labs and medications reviewed The patient is quite obtunded today Prognosis remains quite poor Dr. Cr spoke to the patient's daughter on the phone in detail Patient will be a DO NOT RESUSCITATE/DO NOT INTUBATE CODE STATUS We'll continue the current treatment plan We will continue to follow I have personally seen and examined the patient, performed the documentation and the assessment and plan as written. Number of minutes spent on the visit: 10.
[2023-03-08] MEDS: ACETAMINOPHEN IV (For NPO) 1,000 MG in EMPTY BAG 1 BAG IVPB PRN ×2 (12:48→20:14)
[2023-03-08] MEDS: IPRATROPIUM-ALBUTEROL 3 ML NEB INHALATION PRN (20:11)
[2023-03-08] MEDS: ATORVASTATIN 80 MG TAB PO SCH (20:19)
[2023-03-08] MEDS: LATANOPROST 0.005% OPHTH DROPS 2.5 ML BTL LEFT EYE SCH (20:20)
[2023-03-09] MEDS: PIPERACILLIN-TAZOBACTAM 3.375 GM in SODIUM CHLORIDE 0.9% 100 ML IVPB SCH ×3 (06:34→21:46)
--- NOTE | 2023-03-09 07:32 | P.PN ---
Subjective Progress Note Date: 03/09/23 Principal diagnosis: Paroxysmal atrial fibrillation The patient is a 68-year-old gentleman with a past medical history significant for heart failure and paroxysmal in nature patient as well as multiple comorbid conditions who was admitted to the hospital with sepsis related to pneumonia and also diarrhea. He was also diagnosed with electrolytes imbalance with hypokalemia likely secondary to diarrhea. Beside that he was hypotensive also likely secondary to diarrhea and sepsis. Beside that he was in renal failure 03/06/2022 The patient was seen and evaluated today. He seems to be stable was marginally low blood pressure but currently not on any vasopressors. His heart rate has a slightly improved because he was tachycardic yesterday. Currently he is on IV fluid. Urine output is marginal. Creatinine continues to be elevated. The creatinine remains elevated at this point and above the baseline. He is maintaining normal sinus mechanism. He has a swallowing evaluation and for that reason we are holding oral anticoagulation and if that the scenario he might benefit from IV anticoagulation using heparin IV and he cannot receive Lovenox because he is in renal failure. The examination is remarkable for bilateral rhonchi with irregular rhythm and distant heart sounds and bilateral lower extremity edema March 072023 The patient was seen and evaluated this morning. His diarrhea has improved significantly. He is back in sinus mechanism with heart rate in the 80s. His pressure is marginal including systolic pressure and mean pressure. For that reason I'm going to stop the Cardizem at this point and keep him on Darvon. He cannot swallow and for that reason we'll continue the amiodarone IV V is able to take his oral medication also I would consider stopping the oral anticoagulation and start him on heparin at this point until we have the swallow evaluation back. Kidney function remains elevated and nephrology is on the case. He continues to be on antibiotic. The examination is remarkable for lethargy was overall stable vital signs was marginally low blood pressure and diminished breathing sounds bilaterally regular rhythm. March 082023 The patient was seen and evaluated this morning. He is somewhat lethargic. He is in normal sinus mechanism. He continues to be on amiodarone IV. I would consider switch him to amiodarone orally. He is on oral anticoagulation. The creatinine is worse. Nephrology is on the case. The blood pressure remains marginal as well. The physical examination is remarkable for lethargy along with stable vital signs was marginally low blood pressure and bilateral lower extremities edema. The heart rate is regular. He has diminished breathing sounds bilaterally. March 092023 Patient was seen this morning. Unfortunately overall is not doing well. He continues to be tachypneic and currently he is DO NOT RESUSCITATE. The chest x- ray to me looks worse. He is hemodynamically stable and has been maintaining normal sinus mechanism. The creatinine remains elevated. The urine output has been low as well. Overall the prognosis is extremely poor. He has been maintaining normal sinus mechanism and he is on amiodarone and he is also on oral anticoagulation. The examination is remarkable for tachypnea with bilateral rhonchi and distant heart sounds and bilateral lower extremities edema Assessment Pneumonia/sepsis Diarrhea which has improved Electrolytes imbalance Marginally low blood pressure Paroxysmal atrial fibrillation Difficulty swallowing Heart failure. The patient currently not in any heart failure Plan Continue amiodarone and switch the patient to oral amiodarone Continue oral anticoagulation Continue monitoring her kidney function and electrolytes Follow-up with the patient Overall poor prognosis Objective - Vital Signs Vital signs: Vital Signs Temp 97.8 F 03/09/23 04:00 Pulse 94 03/09/23 07:00 Resp 22 03/09/23 07:00 BP 106/65 03/09/23 07:00 Pulse Ox 93 L 03/09/23 07:00 FiO2 100 03/08/23 16:00 Intake & Output 03/08/23 03/09/23 03/09/23 18:59 06:59 18:59 Intake Total 1114.333 900 75 Output Total 133 65 5 Balance 981.333 835 70 Weight 83.4 kg 84 kg Intake: IV 925.0 900 75 Lactated Ringers 1,000 ml 112.5 675 75 @ 75 mls/hr IV .[id number] [facility] Rx#:[id number] Piperacillin-Tazobactam 3 100 .375 gm In Sodium Chloride 0.9% 100 ml @ 25 mls/hr IVPB Q8H [facility] Rx#: [id number] Sodium Chloride 0.45% 1, 712.5 225 000 ml @ 75 mls/hr IV . [id number] [facility] with Sodium Bicarb (1 Meq/ml) 150 ml Rx#:[id number] Intake, IV Titration 39.333 Amount Diltiazem 125 mg In 39.333 Sodium Chloride 0.9% 100 ml @ Per Protocol IV .Q0M [facility] Rx#:[id number] Oral 150 Output: Urine 133 65 5 Other: Voiding Method Indwelling Catheter Indwelling Catheter - Labs CBC & Chem 7: 03/08/23 05:38 03/08/23 05:38 Labs: Abnormal Lab Results - Last 24 Hours (Table) 03/08/23 Range/Units 11:36 POC Glucose (mg/dL) 144 H (70-110) mg/dL Microbiology - Last 24 Hours (Table) 03/05/23 06:00 Blood Culture - Preliminary Blood 03/05/23 05:45 Blood Culture - Preliminary Blood
[2023-03-09] MEDS: AMIODARONE 450 MG in DEXTROSE 5% IN WATER 250 ML IV SCH ×2 (07:52)
[2023-03-09 07:55] LABS: African American GFR (CKD) 17 (>60 ml/min/1.73 sqM); Anion Gap 11 mmol/L; Blood Urea Nitrogen 65 mg/dL (9-20); Calcium 7.4 mg/dL (8.4-10.2); Carbon Dioxide 26 mmol/L (22-30); Chloride 97 mmol/L (98-107); Glucose 108 mg/dL (74-99); Non-African American GFR(CKD) 15 (>60 ml/min/1.73 sqM); Potassium 3.6 mmol/L (3.5-5.1); Sodium 134 mmol/L (137-145)
[2023-03-09 08:05] LABS: HCT 34.7 % (39.0-53.0); HGB 11.1 gm/dL (13.0-17.5); Hypochromasia Slight; MCH 30.6 pg (25.0-35.0); MCV 95.4 fL (80.0-100.0); Mean Platelet Volume 8.9; Platelet Count 220 k/uL (150-450); RBC 3.64 m/uL (4.30-5.90); RDW 14.9 % (11.5-15.5)
[2023-03-09] MEDS: APIXABAN 5 MG TAB PO SCH ×2 (08:56→19:52)
[2023-03-09] MEDS: AMIODARONE 200 MG TAB PO SCH ×2 (08:56→19:52)
[2023-03-09] MEDS: PANTOPRAZOLE 40 MG/10 ML VIAL IVP SCH (08:56)
[2023-03-09] MEDS: MULTIVITAMINS, THERA 1 EACH TAB PO SCH (09:33)
[2023-03-09] MEDS: IPRATROPIUM-ALBUTEROL 3 ML NEB INHALATION PRN (09:35)
[2023-03-09 09:39] LABS: Band Neutrophils % 2 %; Metamyelocytes % 1 %; Myelocytes % 1 %; Neutrophils % (M) 89 %; Nucleated Red Blood Cells 0 /100 WBC (0-0); Total Cells Counted 200
[2023-03-09 09:40] LABS: Crenated RBC Present; Poikilocytosis (M) Present
--- NOTE | 2023-03-09 10:13 | P.PN ---
Subjective Progress Note Date: 03/09/23 68-year-old gentleman seen in the emergency department, room 27. He's not a particularly good historian, so much of the history is obtained from the primary service, and the ER afshan. The patient was in the emergency department, at 1:00 in the morning, on March 05. He came with complaints of altered mental status, diarrhea, and hypotension. He was apparently sent in from one of the local nursing homes. I could not get much history from the patient after this. [facility], he apparently was having a low blood pressure, and low oxygen saturation levels. He was also profoundly weak. He was confused. His condition apparently was getting worse ear, so he was sent into be evaluated. His chest x-ray apparently shows a infiltrate, or mass, in the left upper lobe. A CAT scan was recommended by radiology. The patient is on 5 L of oxygen. His saturations were anywhere from 91-96%. He was getting saline at 130 mL an hour. He was getting both Zosyn and azithromycin. His lower extremities were wrapped in OLAMIDE bandages. His blood pressure when I went to see him was 92/62. Lab oratory includes a white count of 31.7, hemoglobin 12.3, hematocrit 36.9, and a platelet count 389,000. PTT was 24, INR 2.4, and PTT was 43.4. Sodium 125, potassium 3.1, chlorides 91, CO2 19, anion gap 15, urine 48, creatinine 2.99. This electrolyte profile was consistent with an anion gap metabolic acidosis, probably from renal failure. The patient's N-terminal proBNP was 4710. Troponin was 0.044. The albumin was 2.4. Urine was negative. EKG showed sinus tachycardia with a rate of 105 bpm. Chest x-ray showed large left upper lobe opacity, consistent with either neoplasm or infiltrate/pneumonia. The computed tomography scan showed some scarring in the right upper lobe, but on the left side, a large cavitary lesion which could reflect cavitating pneumonia or cancer. His history is apparently positive for COPD, secondary to tobacco use, atrial fibrillation, congestive heart failure, gastroesophageal reflux disease, hyperlipidemia, hypertension, osteoarthritis, and Herring's esophagus. The patient is seen today 03/06/2023 and follow-up in the intensive care unit. He is currently sitting up in bed. Awake and alert. Requiring 7 L high flow nasal cannula to maintain O2 saturations in the mid 90s. He's been afebrile. Hemodynamically stable. He has normal saline at 100 ML's per hour. Propofol calcitonin level was 1.06. He remains on Zosyn. He is currently nothing by mouth. His swallow evaluation is pending. He is on a heparin drip in place of his Eliquis. CAT scan did reveal a left upper lobe cavitary lesion. X-ray continues to show opacity over the right mid to lower lung suggestive of airspace disease. Similar left upper lobe infiltrate with a consolidative opacity near the left apex with central cavitation. White count 33.8. Hemoglobin 12.0. Sodium 129. Potassium 3.3. Bicarb 17. BUN 46. Creatinine 2.50. The patient is seen today 03/07/2023 in follow-up in the intensive care unit. He is currently resting in bed. Awake and alert in no acute distress. Maintaining O2 saturations in the 90s on 6 L high flow nasal cannula. He is afebrile. Chest x-ray reveals COPD with multifocal airspace disease persistent particularly in the left upper lobe. He is going for a barium swallow today. White count 23.5. Hemoglobin 10.9. Sodium 131 potassium 3.8. Bicarb 18. BUN 51. Creatinine 2.77. He remains on bronchodilators. Antibiotics in the form of Zosyn. Requiring amiodarone at 0.5 mg/m. He has remained nothing by mouth. The plan will be for a heparin drip per cardiology. He has 0.45% normal saline with 3 A of bicarb at 75 ML's per hour per nephrology. The patient is seen today 03/08/2023 in follow-up in the intensive care unit. He is quite obtunded this morning. Difficult to arouse. He is maintaining O2 saturations in the 90s on 6 L high flow nasal cannula. Arterial blood gases from last evening revealed a pO2 of 60, pCO2 of 52 and a pH of 7.30. He is currently on amiodarone at 0.5 pg/m. Normal saline at KVO. 0.45% normal saline with 3 A of bicarb at 75 ML's per hour. X-ray reveals COPD with ongoing opacities in the left upper and midlung. Worsening aeration and airspace disease at the right base. Cultures reveal no growth. White count 32.6. Hemoglobin 11.0. Sodium 136. Potassium 3.4. Bicarb 24. He 157. Creatinine 3.3. Glucose 115. He remains on antibiotics in the form of Zosyn. Eliquis for anticoagulation. Lactated Ringer's at 75 ML's per hour. The patient is seen today 03/09/2019 for follow-up in the intensive care unit. He remains obtunded. Difficult to arouse. Currently on 15 L high flow cannula plus a nonrebreather mask to maintain O2 saturations in the 90s. Blood cultures reveal no growth. White count 30.0. Hemoglobin 11.1. Sodium 134. Potassium 3.6. Bicarb 26. BUN 65. Creatinine 3.85. Glucose 108. Currently on amiodarone at 0.5 mg/m. Lactated Ringer's at 75 ML's per hour. Remains on antibiotics in the form of Zosyn. Anticoagulated with Eliquis. Objective - Vital Signs Vital signs: Vital Signs Temp 97.8 F 03/09/23 04:00 Pulse 97 03/09/23 09:43 Resp 22 03/09/23 07:00 BP 106/65 03/09/23 07:00 Pulse Ox 95 03/09/23 09:33 FiO2 100 03/08/23 16:00 Intake & Output 03/08/23 03/09/23 03/09/23 18:59 06:59 18:59 Intake Total 7828.706 9083 75 Output Total 133 65 5 Balance 089.773 4978 70 Weight 83.4 kg 84 kg Intake: IV 925.0 900 75 Lactated Ringers 1,000 ml 112.5 675 75 @ 75 mls/hr IV .[id number] [facility] Rx#:[id number] Piperacillin-Tazobactam 3 100 .375 gm In Sodium Chloride 0.9% 100 ml @ 25 mls/hr IVPB Q8H [facility] Rx#: [id number] Sodium Chloride 0.45% 1, 712.5 225 000 ml @ 75 mls/hr IV . [id number] [facility] with Sodium Bicarb (1 Meq/ml) 150 ml Rx#:[id number] Intake, IV Titration 39.333 250 Amount Amiodarone 450 mg In 250 Dextrose 5% in Water 250 ml @ 0.5 MG/MIN 16.667 mls/hr IV .Q15H [facility] Rx#: [id number] Diltiazem 125 mg In 39.333 Sodium Chloride 0.9% 100 ml @ Per Protocol IV .Q0M [facility] Rx#:[id number] Oral 150 Output: Urine 133 65 5 Other: Voiding Method Indwelling Catheter Indwelling Catheter - Exam GENERAL EXAM: Obtunded, frail 68-year-old male patient on 15 L high flow nasal cannula as a nonrebreather mask. HEAD: Normocephalic. EYES: Normal reaction of pupils, equal size. NOSE: Clear with pink turbinates. THROAT: No erythema or exudates. NECK: No masses, no JVD. CHEST: No chest wall deformity. LUNGS: Equal air entry with bilateral scattered rhonchi. CVS: S1 and S2 normal with no audible murmur, regular rhythm. ABDOMEN: No hepatosplenomegaly, normal bowel sounds, no guarding or rigidity. SPINE: Severe kyphoscoliosis SKIN: Stage II decubitus ulcers CENTRAL NERVOUS SYSTEM: No focal deficits, tone is normal in all 4 extremities. EXTREMITIES: Changes of chronic venous stasis. Abnormal mobility. Ulcerations of the lower extremities. Peripheral pulses are intact. - Labs CBC & Chem 7: 03/09/23 07:06 03/09/23 07:06 Labs: Abnormal Lab Results - Last 24 Hours (Table) 03/08/23 03/09/23 03/09/23 Range/Units 11:36 07:06 07:06 WBC 30.0 H (3.8-10.6) k/uL RBC 3.64 L (4.30-5.90) m/uL Hgb 11.1 L (13.0-17.5) gm/dL Hct 34.7 L (39.0-53.0) % Neutrophils # (Manual) 27.30 H (1.3-7.7) k/uL Monocytes # (Manual) 1.20 H (0-1.0) k/uL Metamyelocytes # (Man) 0.30 H (0) k/uL Myelocytes # (Manual) 0.30 H (0) k/uL Sodium 134 L (137-145) mmol/L Chloride 97 L (98-107) mmol/L BUN 65 H (9-20) mg/dL Creatinine 3.85 H (0.66-1.25) mg/dL Glucose 108 H (74-99) mg/dL POC Glucose (mg/dL) 144 H (70-110) mg/dL Calcium 7.4 L (8.4-10.2) mg/dL Microbiology - Last 24 Hours (Table) 03/05/23 06:00 Blood Culture - Preliminary Blood 03/05/23 05:45 Blood Culture - Preliminary Blood Assessment and Plan Assessment: Acute hypoxemic respiratory failure secondary to a cavitary pneumonia or cavitary neoplasm, left upper lobe and bilateral patchy opacities Probable COPD from previous tobacco use Acute mental status changes, may reflect sepsis, or metabolic encephalopathy History of chronic atrial fibrillation History of congestive heart failure History of gastroesophageal reflux disease History of hypertension History of hyperlipidemia History of osteoarthritis History of Herring's esophagus Bilateral lower extremity ulcerations and chronic venous stasis Severe kyphoscoliosis Decubitus ulcers Multiple other medical problems and comorbidities with poor overall functional performance Plan: The patient was seen and evaluated Labs and medications reviewed The patient remains quite obtunded Prognosis remains quite poor DO NOT RESUSCITATE/DO NOT INTUBATE CODE STATUS Should consider hospice/comfort care I have personally seen and examined the patient, performed the documentation and the assessment and plan as written. Number of minutes spent on the visit: 10.
[2023-03-09] MEDS: ACETAMINOPHEN IV (For NPO) 1,000 MG in EMPTY BAG 1 BAG IVPB PRN ×2 (10:20→18:39)
[2023-03-09] MEDS ORDERED: FUROSEMIDE 10 MG/ML 10 ML VIAL IV STA (11:01)
[2023-03-09] MEDS: LACTATED RINGERS 1,000 ML IV SCH (11:19)
[2023-03-09 12:00] LABS: Glucose,Whole Blood 116 mg/dL (70-110)
--- NOTE | 2023-03-09 12:03 | P.PN ---
Subjective Patient is seen for follow-up for acute kidney injury and hyponatremia. Currently maintained on IV fluids. Renal function continues to worsen. Urine output at 0-10 mL an hour. Maintained on Cardizem drip and switch to oral amiodarone Mentation has improved. CODE STATUS changed to no code no intubation. Oxygen requirements have increased in currently maintained on 15 L. Objective - Vital Signs Vital signs: Vital Signs Temp 98.1 F 03/09/23 08:00 Pulse 101 H 03/09/23 11:00 Resp 23 03/09/23 11:00 BP 90/56 03/09/23 11:00 Pulse Ox 95 03/09/23 11:00 FiO2 100 03/08/23 16:00 Intake & Output 03/08/23 03/09/23 03/09/23 18:59 06:59 18:59 Intake Total 1468.396 8880 595 Output Total 133 65 75 Balance 777.485 4212 520 Weight 83.4 kg 84 kg Intake: IV 925.0 900 375 Lactated Ringers 1,000 ml 112.5 675 375 @ 75 mls/hr IV .[id number] [facility] Rx#:[id number] Piperacillin-Tazobactam 3 100 .375 gm In Sodium Chloride 0.9% 100 ml @ 25 mls/hr IVPB Q8H [facility] Rx#: [id number] Sodium Chloride 0.45% 1, 712.5 225 000 ml @ 75 mls/hr IV . [id number] [facility] with Sodium Bicarb (1 Meq/ml) 150 ml Rx#:[id number] Intake, IV Titration 39.333 250 100 Amount ACETAMINOPHEN IV (For NPO 100 ) 1,000 mg In Empty Bag 1 bag @ 400 mls/hr IVPB Q6HR [facility] Rx#:[id number] Amiodarone 450 mg In 250 Dextrose 5% in Water 250 ml @ 0.5 MG/MIN 16.667 mls/hr IV .Q15H [facility] Rx#: [id number] Diltiazem 125 mg In 39.333 Sodium Chloride 0.9% 100 ml @ Per Protocol IV .Q0M [facility] Rx#:[id number] Oral 150 120 Output: Urine 133 65 75 Other: Voiding Method Indwelling Catheter Indwelling Catheter - Exam Patient is awake, no acute distress Answers simple questions appropriately Examination of the heart S1 and S2 Examination of the lungs decreased breath sounds at the bases particularly left Examination of the abdomen reveals it to be soft nontender Examination lower extremity shows bilateral chronic skin changes no draining wounds noted. - Labs CBC & Chem 7: 03/09/23 07:06 03/09/23 07:06 Labs: Abnormal Lab Results - Last 24 Hours (Table) 03/09/23 03/09/23 Range/Units 07:06 07:06 WBC 30.0 H (3.8-10.6) k/uL RBC 3.64 L (4.30-5.90) m/uL Hgb 11.1 L (13.0-17.5) gm/dL Hct 34.7 L (39.0-53.0) % Neutrophils # (Manual) 27.30 H (1.3-7.7) k/uL Monocytes # (Manual) 1.20 H (0-1.0) k/uL Metamyelocytes # (Man) 0.30 H (0) k/uL Myelocytes # (Manual) 0.30 H (0) k/uL Sodium 134 L (137-145) mmol/L Chloride 97 L (98-107) mmol/L BUN 65 H (9-20) mg/dL Creatinine 3.85 H (0.66-1.25) mg/dL Glucose 108 H (74-99) mg/dL Calcium 7.4 L (8.4-10.2) mg/dL Microbiology - Last 24 Hours (Table) 03/05/23 06:00 Blood Culture - Preliminary Blood 03/05/23 05:45 Blood Culture - Preliminary Blood Assessment and Plan Assessment: 1. Acute kidney injury, ATN associated with hypotension and underlying infection. UA shows 1+ protein and no blood or WBCs. No obstruction noted on ultrasound. Renal function continues to worsen. Patient is not an ideal candidate for renal replacement therapy given his underlying comorbidities. 2. Left lung pneumonia versus mass maintained on antibiotics 3. Mental status changes secondary to underlying infection 4. Chronic A. fib 5. Hypovolemic hyponatremia, improving with saline administration. 6. Hypokalemia associated with poor oral intake 7. Metabolic acidosis currently maintained on IV bicarb 8. Cardiomyopathy with EF of 40-45% Plan: DC IV fluids IV Lasix 1 Overall prognosis is poor. Patient is not an ideal candidate for renal replacement therapy.
[2023-03-09] MEDS: MIDODRINE 5 MG TAB PO SCH ×2 (12:30→17:50)
[2023-03-09 17:50] LABS: Glucose,Whole Blood 128 mg/dL (70-110)
[2023-03-09] MEDS: ATORVASTATIN 80 MG TAB PO SCH (19:52)
[2023-03-09] MEDS: LATANOPROST 0.005% OPHTH DROPS 2.5 ML BTL LEFT EYE SCH (21:46)
[2023-03-10] MEDS ORDERED: MORPHINE SULFATE 2 MG/ML SYRINGE IVP PRN (04:16)
[2023-03-10] MEDS: HYDROmorphone 1 MG/ML 1 ML SYRINGE IVP PRN ×2 (05:18→10:06)
[2023-03-10 05:27] LABS: Basophils # (A) 0.2 k/uL (0-0.2); Basophils % (A) 1 %; Eosinophils # (A) 0.2 k/uL (0-0.7); Eosinophils % (A) 1 %; HCT 34.4 % (39.0-53.0); HGB 11.1 gm/dL (13.0-17.5); Hypochromasia Slight; Lymphocytes # (A) 0.7 k/uL (1.0-4.8); Lymphocytes % (A) 2 %; MCH 30.8 pg (25.0-35.0); MCHC 32.3 g/dL (31.0-37.0); MCV 95.5 fL (80.0-100.0); Mean Platelet Volume 8.5; Monocytes # (A) 0.7 k/uL (0-1.0); Monocytes % (A) 2 %; Neutrophils % (A) 94 %; Platelet Count 211 k/uL (150-450); RDW 14.8 % (11.5-15.5); WBC 34.5 k/uL (3.8-10.6)
[2023-03-10 05:38] LABS: Neutrophils # (A) 32.3 k/uL (1.3-7.7)
[2023-03-10 06:19] LABS: ALT 31 U/L (4-49); AST 65 U/L (17-59); African American GFR (CKD) 15 (>60 ml/min/1.73 sqM); Albumin 1.9 g/dL (3.5-5.0); Alkaline Phosphatase 286 U/L (38-126); Anion Gap 15 mmol/L; Blood Urea Nitrogen 69 mg/dL (9-20); Calcium 7.4 mg/dL (8.4-10.2); Carbon Dioxide 23 mmol/L (22-30); Chloride 97 mmol/L (98-107); Glucose 80 mg/dL (74-99); Non-African American GFR(CKD) 13 (>60 ml/min/1.73 sqM); Potassium 3.5 mmol/L (3.5-5.1); Sodium 135 mmol/L (137-145); Total Bilirubin 0.5 mg/dL (0.2-1.3); Total Protein 5.3 g/dL (6.3-8.2)
[2023-03-10] MEDS: PIPERACILLIN-TAZOBACTAM 3.375 GM in SODIUM CHLORIDE 0.9% 100 ML IVPB SCH (06:41)
[2023-03-10] MEDS: MIDODRINE 5 MG TAB PO SCH (06:42)
[2023-03-10] MEDS: PANTOPRAZOLE 40 MG/10 ML VIAL IVP SCH (08:02)
[2023-03-10] MEDS: APIXABAN 5 MG TAB PO SCH (10:04)
[2023-03-10] MEDS: AMIODARONE 200 MG TAB PO SCH (10:04)
[2023-03-10] MEDS: MULTIVITAMINS, THERA 1 EACH TAB PO SCH (10:05)
--- NOTE | 2023-03-10 10:16 | P.PN ---
Subjective Patient is seen for follow-up for acute kidney injury and hyponatremia. Currently maintained on IV fluids. Renal function continues to worsen. Urine output at 0-10 mL an hour. Maintained on Cardizem drip and switched to oral amiodarone Patient remains on 15 L of oxygen CODE STATUS changed to no code no intubation. Hospice has been consulted Objective - Vital Signs Vital signs: Vital Signs Temp 97.9 F 03/10/23 08:00 Pulse 85 03/10/23 08:00 Resp 15 03/10/23 08:00 BP 94/51 03/10/23 08:00 Pulse Ox 96 03/10/23 08:00 FiO2 100 03/08/23 16:00 Intake & Output 03/09/23 03/10/23 03/10/23 18:59 06:59 18:59 Intake Total 1135 340 40 Output Total 185 85 30 Balance 950 255 10 Weight 88 kg Intake: IV 475 Lactated Ringers 1,000 ml 375 @ 75 mls/hr IV .[id number] [facility] Rx#:[id number] Piperacillin-Tazobactam 3 100 .375 gm In Sodium Chloride 0.9% 100 ml @ 25 mls/hr IVPB Q8H [facility] Rx#: [id number] Intake, IV Titration 240 340 40 Amount ACETAMINOPHEN IV (For NPO 100 100 ) 1,000 mg In Empty Bag 1 bag @ 400 mls/hr IVPB Q6HR PRN Rx#:[id number] Lactated Ringers 1,000 ml 140 240 40 @ 20 mls/hr IV .Q24H [facility] Rx#:[id number] Oral 420 Output: Urine 185 85 30 Other: Voiding Method Indwelling Catheter Indwelling Catheter - Exam Patient is awake, no acute distress Sleeping but arousable Examination of the heart S1 and S2 Examination of the lungs decreased breath sounds at the bases particularly left Examination of the abdomen reveals it to be soft nontender Examination lower extremity shows bilateral chronic skin changes no draining wounds noted. - Labs CBC & Chem 7: 03/10/23 04:37 03/10/23 04:37 Labs: Abnormal Lab Results - Last 24 Hours (Table) 03/09/23 03/09/23 03/10/23 Range/Units 11:59 17:48 04:37 WBC 34.5 H (3.8-10.6) k/uL RBC 3.60 L (4.30-5.90) m/uL Hgb 11.1 L (13.0-17.5) gm/dL Hct 34.4 L (39.0-53.0) % Neutrophils # 32.3 H (1.3-7.7) k/uL Lymphocytes # 0.7 L (1.0-4.8) k/uL Sodium (137-145) mmol/L Chloride (98-107) mmol/L BUN (9-20) mg/dL Creatinine (0.66-1.25) mg/dL POC Glucose (mg/dL) 116 H 128 H (70-110) mg/dL Calcium (8.4-10.2) mg/dL AST (17-59) U/L Alkaline Phosphatase (38-126) U/L Total Protein (6.3-8.2) g/dL Albumin (3.5-5.0) g/dL 03/10/23 Range/Units 04:37 WBC (3.8-10.6) k/uL RBC (4.30-5.90) m/uL Hgb (13.0-17.5) gm/dL Hct (39.0-53.0) % Neutrophils # (1.3-7.7) k/uL Lymphocytes # (1.0-4.8) k/uL Sodium 135 L (137-145) mmol/L Chloride 97 L (98-107) mmol/L BUN 69 H (9-20) mg/dL Creatinine 4.43 H (0.66-1.25) mg/dL POC Glucose (mg/dL) (70-110) mg/dL Calcium 7.4 L (8.4-10.2) mg/dL AST 65 H (17-59) U/L Alkaline Phosphatase 286 H (38-126) U/L Total Protein 5.3 L (6.3-8.2) g/dL Albumin 1.9 L (3.5-5.0) g/dL Assessment and Plan Assessment: 1. Acute kidney injury, ATN associated with hypotension and underlying infection. UA shows 1+ protein and no blood or WBCs. No obstruction noted on ultrasound. Renal function continues to worsen. Patient is not an ideal candidate for renal replacement therapy given his underlying comorbidities. 2. Left lung pneumonia versus mass maintained on antibiotics 3. Mental status changes secondary to underlying infection 4. Chronic A. fib 5. Hypovolemic hyponatremia, improving with saline administration. 6. Hypokalemia associated with poor oral intake 7. Metabolic acidosis currently maintained on IV bicarb 8. Cardiomyopathy with EF of 40-45% Plan: Continue off of IV fluids Continue midodrine Overall prognosis is poor. Patient is not an ideal candidate for renal replacement therapy.
--- NOTE | 2023-03-10 11:25 | P.PN ---
Subjective Progress Note Date: 03/10/23 68-year-old gentleman seen in the emergency department, room 27. He's not a particularly good historian, so much of the history is obtained from the primary service, and the ER afshan. The patient was in the emergency department, at 1:00 in the morning, on March 05. He came with complaints of altered mental status, diarrhea, and hypotension. He was apparently sent in from one of the local nursing homes. I could not get much history from the patient after this. But at the [facility], he apparently was having a low blood pressure, and low oxygen saturation levels. He was also profoundly weak. He was confused. His condition apparently was getting worse ear, so he was sent into be evaluated. His chest x-ray apparently shows a infiltrate, or mass, in the left upper lobe. A CAT scan was recommended by radiology. The patient is on 5 L of oxygen. His saturations were anywhere from 91-96%. He was getting saline at 130 mL an hour. He was getting both Zosyn and azithromycin. His lower extremities were wrapped in LOAMIDE bandages. His blood pressure when I went to see him was 92/62. Lab oratory includes a white count of 31.7, hemoglobin 12.3, hematocrit 36.9, and a platelet count 389,000. PTT was 24, INR 2.4, and PTT was 43.4. Sodium 125, potassium 3.1, chlorides 91, CO2 19, anion gap 15, urine 48, creatinine 2.99. This electrolyte profile was consistent with an anion gap metabolic acidosis, probably from renal failure. The patient's N-terminal proBNP was 4710. Troponin was 0.044. The albumin was 2.4. Urine was negative. EKG showed sinus tachycardia with a rate of 105 bpm. Chest x-ray showed large left upper lobe opacity, consistent with either neoplasm or infiltrate/pneumonia. The computed tomography scan showed some scarring in the right upper lobe, but on the left side, a large cavitary lesion which could reflect cavitating pneumonia or cancer. His history is apparently positive for COPD, secondary to tobacco use, atrial fibrillation, congestive heart failure, gastroesophageal reflux disease, hyperlipidemia, hypertension, osteoarthritis, and Herring's esophagus. The patient is seen today 03/06/2023 and follow-up in the intensive care unit. He is currently sitting up in bed. Awake and alert. Requiring 7 L high flow nasal cannula to maintain O2 saturations in the mid 90s. He's been afebrile. Hemodynamically stable. He has normal saline at 100 ML's per hour. Propofol calcitonin level was 1.06. He remains on Zosyn. He is currently nothing by mouth. His swallow evaluation is pending. He is on a heparin drip in place of his Eliquis. CAT scan did reveal a left upper lobe cavitary lesion. X-ray continues to show opacity over the right mid to lower lung suggestive of airspace disease. Similar left upper lobe infiltrate with a consolidative opacity near the left apex with central cavitation. White count 33.8. Hemoglobin 12.0. Sodium 129. Potassium 3.3. Bicarb 17. BUN 46. Creatinine 2.50. The patient is seen today 03/07/2023 in follow-up in the intensive care unit. He is currently resting in bed. Awake and alert in no acute distress. Maintaining O2 saturations in the 90s on 6 L high flow nasal cannula. He is afebrile. Chest x-ray reveals COPD with multifocal airspace disease persistent particularly in the left upper lobe. He is going for a barium swallow today. White count 23.5. Hemoglobin 10.9. Sodium 131 potassium 3.8. Bicarb 18. BUN 51. Creatinine 2.77. He remains on bronchodilators. Antibiotics in the form of Zosyn. Requiring amiodarone at 0.5 mg/m. He has remained nothing by mouth. The plan will be for a heparin drip per cardiology. He has 0.45% normal saline with 3 A of bicarb at 75 ML's per hour per nephrology. The patient is seen today 03/08/2023 in follow-up in the intensive care unit. He is quite obtunded this morning. Difficult to arouse. He is maintaining O2 saturations in the 90s on 6 L high flow nasal cannula. Arterial blood gases from last evening revealed a pO2 of 60, pCO2 of 52 and a pH of 7.30. He is currently on amiodarone at 0.5 pg/m. Normal saline at KVO. 0.45% normal saline with 3 A of bicarb at 75 ML's per hour. X-ray reveals COPD with ongoing opacities in the left upper and midlung. Worsening aeration and airspace disease at the right base. Cultures reveal no growth. White count 32.6. Hemoglobin 11.0. Sodium 136. Potassium 3.4. Bicarb 24. He 157. Creatinine 3.3. Glucose 115. He remains on antibiotics in the form of Zosyn. Eliquis for anticoagulation. Lactated Ringer's at 75 ML's per hour. The patient is seen today 03/09/2019 for follow-up in the intensive care unit. He remains obtunded. Difficult to arouse. Currently on 15 L high flow cannula plus a nonrebreather mask to maintain O2 saturations in the 90s. Blood cultures reveal no growth. White count 30.0. Hemoglobin 11.1. Sodium 134. Potassium 3.6. Bicarb 26. BUN 65. Creatinine 3.85. Glucose 108. Currently on amiodarone at 0.5 mg/m. Lactated Ringer's at 75 ML's per hour. Remains on antibiotics in the form of Zosyn. Anticoagulated with Eliquis. The patient is seen today 03/10/2023 in follow-up in the intensive care unit. He has continued to deteriorate. He is on 15 L high flow nasal cannula. He has less responsive today compared to yesterday. The cultures revealed no growth. White count 34.5. Hemoglobin 11.1. Platelets 211. Sodium 135. Potassium 3.5. Bicarb 23. BUN 69. Creatinine 4.43. He remains on bronchodilators. Anticoagulated with Eliquis. Currently on Cardizem drip at 5 mg per hour. Oral amiodarone. Remains on midodrine. Remains on antibiotics in the form of Zosyn. Objective - Vital Signs Vital signs: Vital Signs Temp 97.9 F 03/10/23 08:00 Pulse 93 03/10/23 10:00 Resp 18 03/10/23 10:00 BP 94/56 03/10/23 10:00 Pulse Ox 94 L 03/10/23 10:00 FiO2 100 03/08/23 16:00 Intake & Output 03/09/23 03/10/23 03/10/23 18:59 06:59 18:59 Intake Total 1135 340 200 Output Total 185 85 50 Balance 950 255 150 Weight 88 kg Intake: IV 475 Lactated Ringers 1,000 ml 375 @ 75 mls/hr IV .[id number] [facility] Rx#:[id number] Piperacillin-Tazobactam 3 100 .375 gm In Sodium Chloride 0.9% 100 ml @ 25 mls/hr IVPB Q8H [facility] Rx#: [id number] Intake, IV Titration 240 340 80 Amount ACETAMINOPHEN IV (For NPO 100 100 ) 1,000 mg In Empty Bag 1 bag @ 400 mls/hr IVPB Q6HR [facility] Rx#:[id number] Lactated Ringers 1,000 ml 140 240 80 @ 20 mls/hr IV .Q24H [facility] Rx#:[id number] Oral 420 120 Output: Urine 185 85 50 Other: Voiding Method Indwelling Catheter Indwelling Catheter Indwelling Catheter - Exam GENERAL EXAM: Obtunded, frail 68-year-old male patient on 15 L high flow nasal cannula. HEAD: Normocephalic. EYES: Normal reaction of pupils, equal size. NOSE: Clear with pink turbinates. THROAT: No erythema or exudates. NECK: No masses, no JVD. CHEST: No chest wall deformity. LUNGS: Equal air entry with bilateral scattered rhonchi. CVS: S1 and S2 normal with no audible murmur, regular rhythm. ABDOMEN: No hepatosplenomegaly, normal bowel sounds, no guarding or rigidity. SPINE: Severe kyphoscoliosis SKIN: Stage II decubitus ulcers CENTRAL NERVOUS SYSTEM: No focal deficits, tone is normal in all 4 extremities. EXTREMITIES: Changes of chronic venous stasis. Abnormal mobility. Ulcerations of the lower extremities. Peripheral pulses are intact. - Labs CBC & Chem 7: 03/10/23 04:37 03/10/23 04:37 Labs: Abnormal Lab Results - Last 24 Hours (Table) 03/09/23 03/09/23 03/10/23 Range/Units 11:59 17:48 04:37 WBC 34.5 H (3.8-10.6) k/uL RBC 3.60 L (4.30-5.90) m/uL Hgb 11.1 L (13.0-17.5) gm/dL Hct 34.4 L (39.0-53.0) % Neutrophils # 32.3 H (1.3-7.7) k/uL Lymphocytes # 0.7 L (1.0-4.8) k/uL Sodium (137-145) mmol/L Chloride (98-107) mmol/L BUN (9-20) mg/dL Creatinine (0.66-1.25) mg/dL POC Glucose (mg/dL) 116 H 128 H (70-110) mg/dL Calcium (8.4-10.2) mg/dL AST (17-59) U/L Alkaline Phosphatase (38-126) U/L Total Protein (6.3-8.2) g/dL Albumin (3.5-5.0) g/dL 03/10/23 Range/Units 04:37 WBC (3.8-10.6) k/uL RBC (4.30-5.90) m/uL Hgb (13.0-17.5) gm/dL Hct (39.0-53.0) % Neutrophils # (1.3-7.7) k/uL Lymphocytes # (1.0-4.8) k/uL Sodium 135 L (137-145) mmol/L Chloride 97 L (98-107) mmol/L BUN 69 H (9-20) mg/dL Creatinine 4.43 H (0.66-1.25) mg/dL POC Glucose (mg/dL) (70-110) mg/dL Calcium 7.4 L (8.4-10.2) mg/dL AST 65 H (17-59) U/L Alkaline Phosphatase 286 H (38-126) U/L Total Protein 5.3 L (6.3-8.2) g/dL Albumin 1.9 L (3.5-5.0) g/dL Assessment and Plan Assessment: Acute hypoxemic respiratory failure secondary to a cavitary pneumonia or cavitary neoplasm, left upper lobe and bilateral patchy opacities Probable COPD from previous tobacco use Acute mental status changes, may reflect sepsis, or metabolic encephalopathy History of chronic atrial fibrillation History of congestive heart failure History of gastroesophageal reflux disease History of hypertension History of hyperlipidemia History of osteoarthritis History of Herring's esophagus Bilateral lower extremity ulcerations and chronic venous stasis Severe kyphoscoliosis Decubitus ulcers Multiple other medical problems and comorbidities with poor overall functional performance Plan: The patient was seen and evaluated Labs and medications reviewed The patient remains quite obtunded DO NOT RESUSCITATE/DO NOT INTUBATE CODE STATUS Family is meeting with hospice today I have personally seen and examined the patient, performed the documentation and the assessment and plan as written. Number of minutes spent on the visit: 10.
[2023-03-10 12:27] LABS: Glucose,Whole Blood 94 mg/dL (70-110)
[2023-03-10 12:53] VITALS: TEMP 98.1
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
[2023-03-10] MEDS: LACTATED RINGERS 1,000 ML IV SCH (14:55)
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
[2023-03-10 15:24] VITALS: BP 92/57; PULSE 93; RESP 18
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
== END 2023-03-10 15:12 | disposition hospice, inpatient (51) | DRG 871 ==
LOC: EC 01:07 → 3SCARD 04:42 → 2SICU 09:22
PROVIDERS: ADMIT Internal Medicine; ATTEND Internal Medicine
DX: A41.9 Sepsis, unspecified organism (principal); G93.41 Metabolic encephalopathy; J18.8 Other pneumonia, unspecified organism; J96.01 Acute respiratory failure with hypoxia; N17.0 Acute kidney failure with tubular necrosis; I50.32 Chronic diastolic (congestive) heart failure; I13.0 Hypertensive heart and chronic kidney disease with heart failure and stage 1 through stage 4 chronic kidney disease, or unspecified chronic kidney disease; J44.0 Chronic obstructive pulmonary disease with (acute) lower respiratory infection; E87.1 Hypo-osmolality and hyponatremia; J44.1 Chronic obstructive pulmonary disease with (acute) exacerbation; I48.20 Chronic atrial fibrillation, unspecified; E87.20 Acidosis, unspecified; I42.9 Cardiomyopathy, unspecified; L97.919 Non-pressure chronic ulcer of unspecified part of right lower leg with unspecified severity; L97.929 Non-pressure chronic ulcer of unspecified part of left lower leg with unspecified severity; I48.0 Paroxysmal atrial fibrillation; Z79.01 Long term (current) use of anticoagulants; E78.2 Mixed hyperlipidemia; Z79.899 Other long term (current) drug therapy; I87.8 Other specified disorders of veins; M19.90 Unspecified osteoarthritis, unspecified site; K21.9 Gastro-esophageal reflux disease without esophagitis; K44.9 Diaphragmatic hernia without obstruction or gangrene; K22.70 Barrett's esophagus without dysplasia; H40.9 Unspecified glaucoma; D63.1 Anemia in chronic kidney disease; N18.31 Chronic kidney disease, stage 3a; R19.7 Diarrhea, unspecified; I83.019 Varicose veins of right lower extremity with ulcer of unspecified site; I83.029 Varicose veins of left lower extremity with ulcer of unspecified site; E86.1 Hypovolemia; E87.8 Other disorders of electrolyte and fluid balance, not elsewhere classified; I25.10 Atherosclerotic heart disease of native coronary artery without angina pectoris; Z87.891 Personal history of nicotine dependence; E87.6 Hypokalemia; L89.90 Pressure ulcer of unspecified site, unspecified stage; R13.10 Dysphagia, unspecified; M41.9 Scoliosis, unspecified; Z51.5 Encounter for palliative care; Z66 Do not resuscitate; Z79.51 Long term (current) use of inhaled steroids; F32.A Depression, unspecified; I08.1 Rheumatic disorders of both mitral and tricuspid valves; G43.909 Migraine, unspecified, not intractable, without status migrainosus; Z79.84 Long term (current) use of oral hypoglycemic drugs; Z99.3 Dependence on wheelchair; Z91.030 Bee allergy status; I27.20 Pulmonary hypertension, unspecified; Z87.01 Personal history of pneumonia (recurrent); Z98.42 Cataract extraction status, left eye; Z98.41 Cataract extraction status, right eye
CPT/HCPCS: 36415; 36600; 71045; 71250; 74230; 76770; 80048; 80053; 81001; 82805; 83605; 83735; 83880; 84100; 84132; 84145; 84484; 85025; 85610; 85730; 86738; 87040; 87324; 87449; 93005; 93306; 94640; 96361; 96365; 96366; 96367; 96375; 96376; 99285

== ENCOUNTER 2023-03-10 14:41 | Inpatient (IN) | payer MEDICAID ==
[2023-03-10] MEDS ORDERED: LORazepam 2 MG/ML INJ IV PRN (14:54)
[2023-03-10] MEDS ORDERED: ATROPINE OPHTH SOLN 1% 5ML BTL SUBLINGUAL PRN (14:54)
[2023-03-10] MEDS ORDERED: ACETAMINOPHEN SUPPOSITORY 650 MG SUPP RECTAL PRN (14:54)
[2023-03-10] MEDS ORDERED: MORPHINE SULFATE 4 MG/ML SYRINGE IV PRN (14:54)
[2023-03-10] MEDS ORDERED: GLYCOPYRROLATE 0.2 MG/ML 2 ML VIAL IVP PRN (14:54)
[2023-03-10] MEDS ORDERED: ONDANSETRON 4 MG/2 ML VIAL IVP PRN (14:54)
[2023-03-10] MEDS ORDERED: DRY MOUTH SPRAY 44.3 SPRAY/44.3 ML SPRAY MUCOUS MEM PRN (14:54)
[2023-03-10] MEDS ORDERED: SCOPOLAMINE 1 MG/72 HR PATCH TRANSDERM SCH (15:00)
[2023-03-10] MEDS: MORPHINE SULFATE (100 MG/2 ML) 100 MG in SODIUM CHLORIDE 0.9% 100 ML IV SCH ×2 (15:51→23:42)
--- NOTE | 2023-03-14 07:34 | P.PN ---
Progress Note - Text Progress Note Date: 03/11/23 Please see H&P and discharge summary from previous account, [id number].
== END 2023-03-11 04:30 | disposition expired | DRG 951 ==
LOC: 2SICU 15:13
PROVIDERS: ADMIT Internal Medicine; ATTEND Internal Medicine
DX: Z51.5 Encounter for palliative care (principal); J18.9 Pneumonia, unspecified organism; A41.9 Sepsis, unspecified organism; J96.01 Acute respiratory failure with hypoxia; G93.41 Metabolic encephalopathy; N17.9 Acute kidney failure, unspecified; I48.91 Unspecified atrial fibrillation; Z79.01 Long term (current) use of anticoagulants; Z99.3 Dependence on wheelchair; Z66 Do not resuscitate